=== PATIENT | female | born 1960 | race Caucasian/White ===

== ENCOUNTER 2016-09-16 22:20 | Emergency (ER) | payer MEDICARE, MEDICAID ==
[~2016-09-16] VITALS: Ht 157.5 cm; Wt 91.2 kg
[~2016-09-16 22:20] MED LIST: ADULT LOW DOSE81 MG PO; ADVAIR 100-501 EACH INH; ADVAIR 250-501 EACH INH; AGGRENOX 25 MG-21 EA PO; ALBUTEROL2.5 MG/3 M INH; ASPIR-LOW81 MG PO; BACTRIM DS TAB1 EACH PO; BENADRYL25 MG PO; CLEOCIN HCL300 MG PO; CLINDAMYCIN HC300 MG PO; DURAGESIC1 EAC4 TD; FENTANYL1 EAC4 TD; FLONASE ALLERG9.9 ML NS; GLIPIZIDE ER2.5 MG PO; GUAIFENESIN-CODE5 ML PO; HUMALOG100 UNIT/2 SUB-Q; IBUPROFEN600 MG PO; IBUPROFEN800 MG PO; IPRAT-ALBUT 0.5-3 ML INH; KEFLEX500 MG PO; LEVEMIR100 UNIT/1 SUB-Q; LEVOFLOXACIN500 MG PO; LIPITOR40 MG PO; MELOXICAM15 MG PO; METFORMIN HCL500 M2 PO; METFORMIN HCL500 MG PO; METOPROLOL SUCC25 MG PO; MIRAPEX0.25 MG PO; NICORETTE2 MG MM; NICOTINE PATCH1 EA TD; NITROGLYCERIN0.4 MG SL; NORCO 10-325 T1 EACH PO; NOVOLOG100 UNITS/ IV; PREDNISONE20 MG PO; PROAIR HFA8.5 GM INH; SPIRIVA18 MCG INH; SYNTHROID75 MCG PO; VICODIN HP 10-1 EAC1 PO; ZOLOFT100 MG PO
--- OUTSIDE RECORDS SUMMARY | 2016-09-16 23:37 | XMS ---
Demographics + + + | Address | [address] | | | [address] | | | [place] [address] | + + + | Preferred Language | Unknown | + + + | Marital Status | Unknown | + + + | Buddhism Affiliation | Unknown | + + + | Race | Unknown | + + + | Ethnic Group | Unknown | + + + Author + + + | Author | [facility] | + + + | Organization | [facility] | + + + | Address | [address] | | | [place] [address] | + + + | Phone | | + + + Care Team Providers + + + + | Care Supervisor Cell Operation Name | Role | Phone | + + + + Unavailable | Unavailable | + + + + PROBLEMS +---------+ + + +--------+ + + | Type | Condition | ICD9-CM | [id number] | Onset | Condition | SNOMED | | | | Code | Code | Dates | Status | Code | +---------+ + + +--------+ + + | Problem | Asthma | | J45.909 | | Active | [id number] | +---------+ + + +--------+ + + | Problem | Essential | | I10 | | Active | 31057136 | | | (primary) | | | | | | | | hypertensi | | | | | | | | on | | | | | | +---------+ + + +--------+ + + | Problem | Nausea & | | R11.2 | | Active | 44372638 | | | vomiting | | | | | | +---------+ + + +--------+ + + | Problem | Diarrhea | | R19.7 | | Active | 11534059 | +---------+ + + +--------+ + + | Problem | History of | I25.2 | | | Active | 6403897 | | | acute | | | | | | | | anterior | | | | | | | | wall [place] | | | | | | +---------+ + + +--------+ + + | Problem | Diabetes | E11.9 | | | Active | 357768163 | | | type 2, | | | | | | | | controlled | | | | | | +---------+ + + +--------+ + + | Problem | Diabetes | E11.8 | | | Active | 899718595 | | | mellitus | | | | | | | | type 2 | | | | | | | | with | | | | | | | | complicati | | | | | | | | ons | | | | | | +---------+ + + +--------+ + + | Problem | Diabetic | | E11.40 | | Active | 579353594 | | | neuropathy | | | | | | +---------+ + + +--------+ + + ALLERGIES Unknown Allergies SOCIAL HISTORY No smoking Hx information available PLAN OF CARE VITAL SIGNS MEDICATIONS + + + + + + + +--------+ | Medicati | Instruct | Dosage | Frequenc | Start | End Date | Duration | Status | | on | ions | | y | Date | | | | + + + + + + + +--------+ | Tiotropi | Inhalati | 1 | 24h | | | 30 | Active | | um | on Once | capsule | | | | | | | [place] | a day | | | | | | | | Monohydr | | | | | | | | | ate 18 | | | | | | | | | MCG | | | | | | | | + + + + + + + +--------+ | Levemir | Subcutan | 36 units | 12h | 10 Mar, | | 30 | Active | | FlexTouc | eous bid | | | 2017 | | | | | h 100 | | | | | | | | | UNIT/ML | | | | | | | | + + + + + + + +--------+ | Ventolin | | INHALE | | | | | Active | | HFA 108 | | 1-2 | | | | | | | (90 | | PUFFS BY | | | | | | | Base) | | MOUTH | | | | | | | MCG/ACT | | INTO THE | | | | | | | | | LUNGS | | | | | | | | | EVERY 4 | | | | | | | | | HOURS | | | | | | | | | NEEDED | | | | | | | | | FOR | | | | | | | | | WHEEZING | | | | | | | | | . | | | | | | + + + + + + + +--------+ | Prometha | | | | | | | Active | | zine HCl | | | | | | | | + + + + + + + +--------+ | Valium | intravag | 1 tab(s) | | 17 June, | | 30 | Active | | 10 mg | inally | | | 2017 | | day(s) | | | | TID PRN | | | | | | | + + + + + + + +--------+ | Insulin | | | | | | | Active | | Lispro | | | | | | | | | (Human) | | | | | | | | | 100 | | | | | | | | | UNIT/ML | | | | | | | | + + + + + + + +--------+ | Ibuprofe | Orally | 1 tablet | 8h | | | | Active | | n 800 MG | Three | | | | | | | | | times a | | | | | | | | | day | | | | | | | + + + + + + + +--------+ | Turmeric | Orally | | 24h | | | | Active | | | once a | | | | | | | | Curcumin | day | | | | | | | | 500 MG | | | | | | | | + + + + + + + +--------+ | Ipratrop | Inhalati | 3 ml | 6h | | | | Active | | ium-Albu | on Four | | | | | | | | terol | times a | | | | | | | | 0.5-2.5 | day | | | | | | | | (3) | | | | | | | | | MG/3ML | | | | | | | | + + + + + + + +--------+ | Levothyr | Orally | 1 tablet | 24h | | | | Active | | oxine | Once a | | | | | | | | Sodium | day | | | | | | | | 75 MCG | | | | | | | | + + + + + + + +--------+ | Advair | Inhalati | 1 puff | 12h | 05 Feb, | | 30 | Active | | Diskus | on Twice | | | 2017 | | | | | 250-50 | a day | | | | | | | | MCG/DOSE | | | | | | | | + + + + + + + +--------+ | Atorvast | Orally | 1 tablet | 24h | | | | Active | | atin | Once a | | | | | | | | Calcium | day | | | | | | | | 40 MG | | | | | | | | + + + + + + + +--------+ | Magnesiu | Orally | 1 | 24h | | | | Active | | m 500 MG | daily | applicat | | | | | | | | | or full | | | | | | + + + + + + + +--------+ | iron 50 | Oral | | 24h | | | | Active | | mg | once a | | | | | | | | | day | | | | | | | + + + + + + + +--------+ | Nitro-Bi | | | | | | | Active | | d | | | | | | | | + + + + + + + +--------+ | Metformi | Orally | 1 tab | 12h | | | 30 | Active | | n & Diet | bid | | | | | | | | Manage | | | | | | | | | Prod | | | | | | | | | 1000 MG | | | | | | | | + + + + + + + +--------+ | Pramipex | Orally | 3 tablet | 24h | | | 30 | Active | | ole | Once a | before | | | | | | | Dihydroc | day | bedtime | | | | | | | hloride | | | | | | | | | 0.25 MG | | | | | | | | + + + + + + + +--------+ | Fluticas | Nasally | 1 spray | 24h | | | | Active | | one | Once a | in each | | | | | | | Propiona | day | nostril | | | | | | | te 50 | | | | | | | | | MCG/ACT | | | | | | | | + + + + + + + +--------+ | Garcinia | | | | | | | Active | | | | | | | | | | | Cambogia | | | | | | | | | -Chromiu | | | | | | | | | m | | | | | | | | + + + + + + + +--------+ | Imitrex | Orally | 1 tablet | | 05 Apr, | | 30 | Active | | 50 MG | at onset | as | | 2016 | | | | | | mcneill may | needed | | | | | | | | repeat | | | | | | | | | x1 | | | | | | | + + + + + + + +--------+ | DuoNeb | nebulize | one | 6h | 05 Wilfredo, | | 30 | Active | | 500mcg/2 | r qid | | | 2016 | | | | | .5g/3ml | | | | | | | | + + + + + + + +--------+ | Voltaren | Transder | as | 12h | 05 Apr, | | 30 | Active | | 1 % | mal bid | directed | | 2016 | | | | + + + + + + + +--------+ | Fluticas | Inhalati | 1 puff | 12h | | | | Active | | one-Salm | on Twice | | | | | | | | eterol | a day | | | | | | | | 250-50 | | | | | | | | | MCG/DOSE | | | | | | | | + + + + + + + +--------+ | D-3-5 | Orally | 5 | 24h | | | | Active | | [id number] | Once a | capsule | | | | | | | | day | | | | | | | + + + + + + + +--------+ | Probioti | | | | | | | Active | | c | | | | | | | | + + + + + + + +--------+ | Zofran | Orally | 1 tablet | 8h | 10 Apr, | | 5 day(s) | Active | | ODT 4 mg | every 8 | on the | | 2016 | | | | | | hrs | tongue | | | | | | | | | and | | | | | | | | | allow to | | | | | | | | | | | | | | | | | | dissolve | | | | | | + + + + + + + +--------+ | Metoprol | Orally | 1 tablet | 12h | | | 30 | Active | | ol | bid | | | | | | | | Succinat | | | | | | | | | e ER 25 | | | | | | | | | MG | | | | | | | | + + + + + + + +--------+ | Cinnamon | | | | | | | Active | + + + + + + + +--------+ | Carafate | Orally | 10 ml | | 05 Apr, | 31 Mar, | 30 | Active | | 1 | tid ac | | | 2017 | 2018 | day(s) | | | GM/10ML | | | | | | | | + + + + + + + +--------+ | Sertrali | Orally | 1 tablet | 24h | | | | Active | | ne HCl | Once a | | | | | | | | 100 MG | day | | | | | | | + + + + + + + +--------+ | Spirulin | Orally | | 24h | | | | Active | | a 400 mg | once a | | | | | | | | | day | | | | | | | + + + + + + + +--------+ | Dipyrida | | | | | | | Active | | mole 25 | | | | | | | | | MG | | | | | | | | + + + + + + + +--------+ RESULTS No Results PROCEDURES No Known procedures IMMUNIZATIONS No Known Immunizations"
--- OUTSIDE RECORDS SUMMARY | 2016-09-16 23:37 | XMS ---
Demographics + + + | Address | [address] | | | [address] | | | [place] [address] | + + + | Preferred Language | Unknown | + + + | Marital Status | Unknown | + + + | Temple Affiliation | Unknown | + + + | Race | Unknown | + + + | Ethnic Group | Unknown | + + + Author + + + | Author | [facility] | + + + | Organization | [facility] | + + + | Address | [address] | | | [place] [address] | + + + | Phone | | + + + Care Team Providers + + + + | Care Tube Builder Name | Role | Phone | + + + + Unavailable | Unavailable | + + + + PROBLEMS +---------+ + + +--------+ + + | Type | Condition | ICD9-CM | [id number] | Onset | Condition | SNOMED | | | | Code | Code | Dates | Status | Code | +---------+ + + +--------+ + + | Problem | Asthma | | J45.909 | | Active | [id number] | +---------+ + + +--------+ + + | Problem | Essential | | I10 | | Active | 54927497 | | | (primary) | | | | | | | | hypertensi | | | | | | | | on | | | | | | +---------+ + + +--------+ + + | Problem | Nausea & | | R11.2 | | Active | 64924959 | | | vomiting | | | | | | +---------+ + + +--------+ + + | Problem | Diarrhea | | R19.7 | | Active | 49074954 | +---------+ + + +--------+ + + | Problem | History of | I25.2 | | | Active | 0954312 | | | acute | | | | | | | | anterior | | | | | | | | [place] | | | | | | +---------+ + + +--------+ + + | Problem | Diabetes | E11.9 | | | Active | 045774038 | | | type 2, | | | | | | | | controlled | | | | | | +---------+ + + +--------+ + + | Problem | Diabetes | E11.8 | | | Active | 195611119 | | | mellitus | | | [...] | | E11.40 | | Active | 193710793 | | | neuropathy | | | [...] + + + + + +--------+ | Diflucan | Orally q | 1 tablet | | 03 June, | 13 June, | 10 | Active | | 150 MG | day | | | 2017 | 2017 | day(s) | | + + + + + + + +--------+ RESULTS No Results PROCEDURES No Known procedures IMMUNIZATIONS No Known Immunizations"
--- OUTSIDE RECORDS SUMMARY | 2016-09-16 23:37 | XMS ---
Demographics + + + | Address | [address] | | | [address] | | | [place] [address] | + + + | Preferred Language | Unknown | + + + | Marital Status | Unknown | + + + | Tenriism Affiliation | Unknown | + + + | Race | Unknown | + + + | Ethnic Group | Unknown | + + + Author + + + | Author | [facility] | + + + | Organization | [facility] | + + + | Address | [address] | | | [place] [address] | + + + | Phone | | + + + Care Team Providers + + + + | Care Doll Dresser Name | Role | Phone | + + + + Unavailable | Unavailable | + + + + PROBLEMS + + + + + + + + | Type | Condition | ICD9-CM | [id number] | Onset | Condition | SNOMED | | | | Code | Code | Dates | Status | Code | + + + + + + + + | Assessment | Diabetes | E11.9 | | 05 June, | Active | [id number] | | | type 2, | | | 2017 | | | | | controlled | | | | | | + + + + + + + + | Problem | Asthma | | J45.909 | | Active | 845148680 | + + + + + + + + | Problem | Essential | | I10 | | Active | 77787400 | | | (primary) | | | | | | | | hypertensi | | | | | | | | on | | | | | | + + + + + + + + | Problem | Nausea & | | R11.2 | | Active | 13599013 | | | vomiting | | | | | | + + + + + + + + | Problem | Diarrhea | | R19.7 | | Active | 13869750 | + + + + + + + + | Problem | History of | I25.2 | | | Active | 1203197 | | | acute | | | | | | | | anterior | | | | | | | | wall [place] | | | | | | + + + + + + + + | Problem | Diabetes | E11.9 | | | Active | 011247873 | | | type 2, | | | | | | | | controlled | | | | | | + + + + + + + + | Problem | Diabetes | E11.8 | | | Active | 871318796 | | | mellitus | | | | | | | | type 2 | | | | | | | | with | | | | | | | | complicati | | | | | | | | ons | | | | | | + + + + + + + + | Problem | Diabetic | | E11.40 | | Active | 142393718 | | | neuropathy | | | | | | + + + + + + + + | Assessment | Hypothyroi | E03.9 | | 27 June, | Active | 36356497 | | | dism | | | 2016 | | | | | (acquired) | | | | | | + + + + + + + + | Assessment | Vaginal | B37.3 | | 27 June, | Active | 92104144 | | | moniliasis | | | 2016 | | | + + + + + + + + | Assessment | Degenerati | M17.10 | | 05 June, | Active | 724661238 | | | ve joint | | | 2016 | | | | | disease of | | | | | | | | knee | | | | | | + + + + + + + + | Assessment | History of | Z87.448 | | 27 June, | Active | | | | prolapse | | | 2016 | | | | | of bladder | | | | | | + + + + + + + + | Assessment | COPD | | J44.9 | 27 June, | Active | 17253931 | | | (chronic | | | 2016 | | | | | obstructiv | | | | | | | | e | | | | | | | | pulmonary | | | | | | | | disease) | | | | | | + + + + + + + + ALLERGIES + + + + +--------+ | Substance | Reaction | Event Type | Date | Status | + + + + +--------+ | Tramadol HCl | Unknown | Drug Allergy | June, | Active | + + + + +--------+ | Cymbalta | Unknown | Drug Allergy | June, | Active | + + + + +--------+ | Tolterodine | Unknown | Drug Allergy | June, | Active | | Tartrate | | | | | + + + + +--------+ | Rizatriptan | Unknown | Drug Allergy | June, | Active | | Benzoate | | | | | + + + + +--------+ | Duloxetine HCl | Unknown | Drug Allergy | June, | Active | + + + + +--------+ SOCIAL HISTORY No smoking Hx information available PLAN OF CARE VITAL SIGNS + + + + | Height | 62 in | 2016-06-27 | + + + + | Weight | 197.34 lbs | 2016-06-27 | + + + + | BMI | 36.09 kg/m2 | 2016-06-27 | + + + + | Temperature | 98.4 degrees Fahrenheit | 2016-06-27 | + + + + | Heart Rate | 72 /min | 2016-06-27 | + + + + | Blood pressure systolic | 120 mm Hg | 2016-06-27 | + + + + | Blood pressure diastolic | 82 mm Hg | 2016-06-27 | + + + + MEDICATIONS + + + + + + [...] Diskus | on Twice | | | 2016 | | | | | 250-50 | a day | | | | | | | | MCG/DOSE | | | | | | | | + + + + + + + +--------+ | Carafate | Orally | 10 ml | | 05 May, | 31 Apr, | 30 | Active | | 1 [...] + + +--------+ | Diflucan | Orally | 1 tablet | 12h | 03 June, | 13 June, | 10 day | Active | | 150 MG | bid | | | 2016 | 2016 | | | + + + + + + + +--------+ | Levemir | Subcutan | 36 units | 12h | 10 Mar, | | 30 | Active | | FlexTouc | eous bid | | | 2016 | | | | | h 100 | | | | | | | | | UNIT/ML | | | | | | | | + + + + + + + +--------+ | DuoNeb | nebulize | one | 6h | 05 Wilfredo, | | 30 | Active | | 500mcg/2 | r qid | | | 2017 | | | | | .5g/3ml | [...] 1 tablet | 24h | | | 30 | Active | | oxine | Once a | | | | | | | | Sodium | day | | | | | | | | 75 MCG | | | | | | | | + + + + + + + +--------+ | Metformi | Orally | 1 tab | 12h | | | | Active | | n & Diet | bid | | | | | | | | Manage | | | | | | | | | Prod | | | | | | | | | 2000 | | | | | | | [...] | mal bid | directed | | 2017 | | | | + + + [...] | | | | | | | [place] | a day | | | | [...] | | | | | | | 200 | day | | | | | | | + + + + + + + +--------+ RESULTS No Results PROCEDURES + + + + + | Procedure | Date Ordered | Related Diagnosis | Body Site | + + + + + | Office Visit, Est | June 27, 2016 | | | | Pt., Level 3 | | | | + + + + + IMMUNIZATIONS No Known Immunizations"
--- OUTSIDE RECORDS SUMMARY | 2016-09-16 23:37 | XMS ---
Demographics + + + | Address | [address] | | | [address] | | | [place] [address] | + + + | Preferred Language | Unknown | + + + | Marital Status | Unknown | + + + | Faith Affiliation | Unknown | + + + | Race | Unknown | + + + | Ethnic Group | Unknown | + + + Author + + + | Author | [facility] | + + + | Organization | [facility] | + + + | Address | [address] | | | [place] [address] | + + + | Phone | | + + + Care Team Providers + + + + | Care It Software Developer Name | Role | Phone | + + + + Unavailable | Unavailable | + + + + PROBLEMS + + + + + + + + | Type | Condition | ICD9-CM | [id number] | Onset | Condition | SNOMED | | | | Code | Code | Dates | Status | Code | + + + + + + + + | Assessment | Diabetes | E11.9 | | 27 June, | Active | [id number] | | | type 2, | | | 2016 | | | | | controlled | | | | | | + + + + + + + + | Problem | Asthma | | J45.909 | | Active | 694386966 | + + + + + + + + | Problem | Essential | | I10 | | Active | 82590165 | | | (primary) | | | | | | | | hypertensi | | | | | | | | on | | | | | | + + + + + + + + | Assessment | Degenerati | M17.10 | | 27 June, | Active | 175735423 | | | ve joint | | | 2016 | | | | | disease of | | | | | | | | knee | | | | | | + + + + + + + + | Assessment | Restless | | G25.81 | 27 June, | Active | 16932397 | | | leg | | | 2016 | | | | | syndrome | | | | | | + + + + + + + + | Assessment | COPD | | J44.9 | 27 June, | Active | 09701386 | | | (chronic | | | [...] | | R11.2 | | Active | 70332034 | | | vomiting | | | | | | + + + + + + + + | Problem | Diarrhea | | R19.7 | | Active | 65071343 | + + + + + + + + | Problem | History of | I25.2 | | | Active | 7626112 | | | acute | | | | | | | | anterior | | | | | | | | wall [place] | | | | | | + + + + + + + + | Problem | Diabetes | E11.9 | | | Active | 260521013 | | | type 2, | | | | | | | | controlled | | | | | | + + + + + + + + | Problem | Diabetes | E11.8 | | | Active | 898296944 | | | mellitus | | | [...] | | E11.40 | | Active | 553199458 | | | neuropathy | | | | | | + + + + + + + + ALLERGIES Unknown Allergies SOCIAL HISTORY [...] Orally q | 1 tablet | | 25 June, | 13 June, | 10 | Active | | 150 MG | day | | | 2017 | 2017 | day(s) | | + + + + + + + +--------+ | Advair | Inhalati | 1 puff | 12h | Feb, | | 30 | Active | [...] | | | | | | | [place] | a day | | | | [...] | + + + + + | Darren Anderson | June 27, 2016 | | | | Exam | | | | + + + + + IMMUNIZATIONS No Known Immunizations"
--- OUTSIDE RECORDS SUMMARY | 2016-09-16 23:37 | XMS ---
Demographics + + + | Address | [address] | | | [address] | | | [place] [address] | + + + | Preferred Language | Unknown | + + + | Marital Status | Unknown | + + + | Caodaism Affiliation | Unknown | + + + | Race | Unknown | + + + | Ethnic Group | Unknown | + + + Author + + + | Author | [facility] | + + + | Organization | [facility] | + + + | Address | [address] | | | [place] [address] | + + + | Phone | | + + + Care Team Providers + + + + | Care Wine Manager Name | Role | Phone | + + + + Unavailable | Unavailable | + + + + PROBLEMS +---------+ + + +--------+ + + | Type | Condition | ICD9-CM | [id number] | Onset | Condition | SNOMED | | | | Code | Code | Dates | Status | Code | +---------+ + + +--------+ + + | Problem | Asthma | | J45.909 | | Active | 228201104 | +---------+ + + +--------+ + + | Problem | Essential | | I10 | | Active | 45264772 | | | (primary) | | | | | | | | hypertensi | | | | | | | | on | | | | | | +---------+ + + +--------+ + + | Problem | Nausea & | | R11.2 | | Active | 34087371 | | | vomiting | | | | | | +---------+ + + +--------+ + + | Problem | Diarrhea | | R19.7 | | Active | 74342819 | +---------+ + + +--------+ + + | Problem | History of | I25.2 | | | Active | 8740171 | | | acute | | | | | | | | anterior | | | | | | | | wall [place] | | | | | | +---------+ + + +--------+ + + | Problem | Diabetes | E11.9 | | | Active | 548481497 | | | type 2, | | | | | | | | controlled | | | | | | +---------+ + + +--------+ + + | Problem | Diabetes | E11.8 | | | Active | 837174181 | | | mellitus | | | [...] | | E11.40 | | Active | 097147063 | | | neuropathy | | | | | | +---------+ + + +--------+ + + ALLERGIES + + + + +--------+ | Substance | Reaction | Event Type | Date | Status | + + + + +--------+ | Tramadol HCl | Unknown | Drug Allergy | Jul, | Active | + + + + +--------+ | Cymbalta | Unknown | Drug Allergy | Jul, | Active | + + + + +--------+ | Tolterodine | Unknown | Drug Allergy | Jul, | Active | | Tartrate | | | | | + + + + +--------+ | Rizatriptan | Unknown | Drug Allergy | Jul, | Active | | Benzoate | | | | | + + + + +--------+ | Duloxetine HCl | Unknown | Drug Allergy | Jul, | Active | + + + + +--------+ SOCIAL HISTORY No smoking Hx information available PLAN OF CARE + +---------+ | Activity | Details | + +---------+ +---+ | | +---+ + + + | Follow Up | 6 Weeks Reason:null | + + + VITAL SIGNS + + + + | Height | 62 in | 2016-07-30 | + + + + | Weight | 202.2 lbs | 2016-07-30 | + + + + | BMI | 36.98 kg/m2 | 2016-07-30 | + + + + | Temperature | 98.2 degrees Fahrenheit | 2016-07-30 | + + + + | Heart Rate | 68 /min | 2016-07-30 | + + + + | Blood pressure systolic | 123 mm Hg | 2016-07-30 | + + + + | Blood pressure diastolic | 58 mm Hg | 2016-07-30 | + + + + MEDICATIONS + [...] | | | | Active | | [id number] | Once a | capsule | | | | | | | | day | | | | | | | + + + + + + + +--------+ | Imitrex | Orally | 1 tablet | | 05 Apr, | | 30 | Active | | 50 MG | at onset | as | | 2017 | | | | | | mcneill [...] | | | | | | | [place] | a day | | | | [...] 10 mg | inally | | | 2016 | | day(s) | | | | TID PRN | | | | | | | + + + + + + + +--------+ RESULTS No Results PROCEDURES + + + + + | Procedure | Date Ordered | Related Diagnosis | Body Site | + + + + + | Office Visit, Est | July 30, 2016 | | | | Pt., Level 3 | | | | + + + + + IMMUNIZATIONS No Known Immunizations"
== END 2016-09-16 23:38 | disposition home or self-care (01) ==
LOC: ED 22:20
DX: S16.1XXA Strain of muscle, fascia and tendon at neck level, initial encounter (principal); S39.012A Strain of muscle, fascia and tendon of lower back, initial encounter; S00.93XA Contusion of unspecified part of head, initial encounter; E03.9 Hypothyroidism, unspecified; K21.9 Gastro-esophageal reflux disease without esophagitis; E11.42 Type 2 diabetes mellitus with diabetic polyneuropathy; J45.909 Unspecified asthma, uncomplicated; Z86.14 Personal history of Methicillin resistant Staphylococcus aureus infection; Z90.710 Acquired absence of both cervix and uterus; W19.XXXA Unspecified fall, initial encounter
CPT/HCPCS: 70450; 72100; 72125; 73030; 73552; 99284

== ENCOUNTER 2016-12-16 06:58 | Day surgery (SDC) | payer MEDICARE, MEDICAID ==
[~2016-12-16] VITALS: Ht 157.5 cm; Wt 97.7 kg
--- NOTE | 2016-12-16 08:18 | NUR ---
0800 - PT CBG CHECKED WITH IV START. CBG 65. 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 1/2 AMP OF D50 ORDERED. WITH CBG RECHECK IN 15 MINUTES.
--- NOTE | 2016-12-16 08:20 | NUR ---
THIS RN BEGAN TO INFUS D50. 18ML GIVEN WHEN PT BEGAN TO COMPLAIN OF PAIN AT IV SITE. PIV ASSESSED, INFILTRATION NOTED. PIV DC'D PER PROTOCOL. COBAN AND GAUZE APPLIED TO SITE.
--- NOTE | 2016-12-16 08:27 | NUR ---
LMFT INFORMED OF INFLITARTED IV AND UNKNONWN DOSE OF D50. 2ND RN WORKING ON VASCULAR ACCESS. LMFT STATES TO RECHECK CBG WHEN ACCESS IS OBTAINED AND DETERMIN AT THAT POINT IF ADDITIONAL D50 IS NEEDED. PT CONTINUES TO BE DIAPHORETIC AND DIZZY.
--- NOTE | 2016-12-16 08:39 | NUR ---
CBG RECHECKED NOW AT 120. TRUCK DRIVER INFORMED, STATES TO WAIT ON ADDITONAL D50 FOR NOW AND HE WILL BE IN TO SEE PT SHORTLY.
--- NOTE | 2016-12-16 09:15 | NUR ---
TAPER MACHINE AT BEDSIDE. VERSED GIVEN PER TAPER MACHINE ORDER (SEE MAR).
--- NOTE | 2016-12-16 10:26 | NUR ---
12/16/16 1026 Mrele Jeffers 1008-PATIENT ARRIVED TO PACU ON 6L MASK O2 SAT 100% PATIENT REACTIVE. DRESSING HAS SCANT AMT OF SHADOWING ON DRESSING TO NOSE. 1010-GLUCOSE 105 PATIENT REPORTING PAIN 8/10 REACHING FOR FACE. INSTRUCTED TO KEEP HANDS AWAY FROM FACE WILL MEDICATE PER EMAR. 1025-PATIENT GIVEN ALBUTEROL BREATHING TREATMENT PER ORDER FROM JT STEVE.
--- NOTE | 2016-12-16 11:18 | NUR ---
PT ARRIVED FROM PACU. REPORTING 8/10 PAIN AND A HEADACHE. COFFE PROVIDED PER NORMAL CHIDI INTAKE FOR PT. PT TOLERATING PO FLUIDS WELL. PT RESPONDING TO QUESTIONS APPROPRIATLY. BED RAILS UP. CALL LIGHT WITHIN REACH.
--- NOTE | 2016-12-16 11:36 | NUR ---
PAIN MEDICATION ARRIVED FROM PHARMACY. PT TOLERATING PO FLUIDS AND JELLO AND PUDDING. PT REQUESTS COTTAGE CHEESE AND FRUIT, ORDERED FROM PHARMACY.
--- NOTE | 2016-12-16 12:21 | NUR ---
PT UP TO THE BATHROOM WITH STBY ASST. TOLERATED WELL, STEADY GAIT. LARGE VOID NOTED AND PT BACK TO BED.
--- NOTE | 2016-12-16 12:26 | NUR ---
PT STEADY ON FEET WITH ONE PERSON STAND BY ASSIST. PT UP TO RESTROOM WITH ANOTHER RN. PT TOLERATING PO FLUIDS AND FOOD AND CONTINUES TO DENY NAUSEA. PT STATES PAIN IS "MUCH BETTER." NOW AT 4/10 AND TOLERABLE. PT FRIEND AT BEDSIDE. DISCHARGE INSTRUCTIONS REVIEWED. PT AND FRIEND VERBALIZE UNDERSTANDING OF DISCHARGE ISNTRUCTIONS AND FOLLOW UP APPOINTMENT.
--- NOTE | 2016-12-23 15:09 | OR ---
[facility] [address] [place], [place] [address] Signed DATE OF OPERATION: 12/16/2016 SURGEON: Kin Bo MD PREOPERATIVE DIAGNOSIS: Chronic sinusitis with septal deformity. POSTOPERATIVE DIAGNOSIS: Chronic sinusitis with septal deformity. PROCEDURES: Septoplasty and bilateral intranasal ethmoidectomy. 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 PREOPERATIVE HISTORY: Laury is a 56-year-old lady with chronic sinus problems. Recent CAT scan had shown opacification of the sinuses, persistent without response to appropriate medications. Exam in the office had shown septal deformity and she was taken to the operating room for the above-mentioned procedures. OPERATIVE PROCEDURE AND FINDINGS: After informed consent, the patient was taken to the operating room, placed in the supine position where general LMA anesthesia was induced. The patient and procedure were verified. Preop CT was viewed throughout the case. The patient received preoperative intranasal oxymetazoline and intravenous Ancef. Headlight speculum exam of the nasal cavity showed moderate septal deformity with a spur inferiorly on the left and right, both obstructive, partially obstructing the middle meatus. Septal mucosa was injected with 1% lidocaine with epinephrine. The mucosa was elevated off the deviated septal bone and cartilage, which was excised with Nathanael. Airway was improved in this manner. Minimal bleeding. Sinusotomies were then performed starting on the left side. The middle turbinate was medialized. Ethmoid bulla had been taken down in previous procedure. There was some scar bands from the middle turbinate to the lateral nasal wall, which were excised. Air cells were opened per CT. The middle meatal antrostomy was made with a curved ring curette and the antrostomy was widened with a Nathanael. Curette was passed into the maxillary sinus and the mucosa was removed. Minimal bleeding. Packing was placed on the side with Gtz Adonis and coated with Neosporin at the middle meatus and a trim Merocel pack in the nasal cavity. The right side was then approached. Sinusotomies per CT reviewed similar to the left side. The bleeding was minimal, slightly more brisk on this side, but stopped after the procedure. Gtz Adonis was placed. Merocel pack was placed into the nasal cavity. The strings were tied anteriorly over a pad. The pharynx was suctioned clear of blood and secretions. The patient was then awakened, extubated, and transported to the recovery room in good condition. Electronically Signed By: KIN BO MD 12/23/16 1509 PATIENT NAME: LAURY WYNN OPERATIVE REPORT DATE OF : 60 PHYSICIAN: KIN BO MD REPORT #: [id number] REPORT IS CONFIDENTIAL AND NOT TO BE RELEASED WITHOUT AUTHORIZATION [facility] [address] [place], [place] [address] Signed COMPLICATIONS: None. BLOOD LOSS: Minimal. SPECIMENS: To pathology. PACKING: Two pieces of Merocel in each nostril. DRAINS: None. Kin Bo MD GC/MODL /[id number] Electronically Signed By: KIN BO MD 12/23/16 1509 PATIENT NAME: BERYLEstherLAURY OPERATIVE REPORT DATE OF : 60 PHYSICIAN: KIN BO MD REPORT #: [id number] REPORT IS CONFIDENTIAL AND NOT TO BE RELEASED WITHOUT AUTHORIZATION
== END 2016-12-16 12:45 | disposition home or self-care (01) ==
LOC: OPS 06:58 → DS 06:58 → OPS 08:15 → DS 08:15 → OPS 12:45
PROVIDERS: Otolaryngology
PROC: 099R8ZZ Drainage of Left Maxillary Sinus, Via Natural or Artificial Opening Endoscopic (ICD-10-PCS; 2016-12-16)
PROC: 099Q8ZZ Drainage of Right Maxillary Sinus, Via Natural or Artificial Opening Endoscopic (ICD-10-PCS; 2016-12-16)
PROC: 09BV4ZZ Excision of Left Ethmoid Sinus, Percutaneous Endoscopic Approach (ICD-10-PCS; 2016-12-16)
PROC: 09BU4ZZ Excision of Right Ethmoid Sinus, Percutaneous Endoscopic Approach (ICD-10-PCS; 2016-12-16)
PROC: 09SM0ZZ Reposition Nasal Septum, Open Approach (ICD-10-PCS; principal; 2016-12-16 08:15)
DX: J34.2 Deviated nasal septum (principal); J32.8 Other chronic sinusitis; I25.10 Atherosclerotic heart disease of native coronary artery without angina pectoris; J44.9 Chronic obstructive pulmonary disease, unspecified; E11.40 Type 2 diabetes mellitus with diabetic neuropathy, unspecified; F31.9 Bipolar disorder, unspecified; E78.00 Pure hypercholesterolemia, unspecified; E03.9 Hypothyroidism, unspecified; Z88.8 Allergy status to other drugs, medicaments and biological substances; Z90.710 Acquired absence of both cervix and uterus; Z98.890 Other specified postprocedural states; Z79.899 Other long term (current) 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
CPT/HCPCS: 00160; 88305; J0690; J2250; J2405; J2704; J3010; J7120

== ENCOUNTER 2017-02-01 21:22 | Emergency (ER) | payer MEDICARE, MEDICAID ==
[~2017-02-01] VITALS: Ht 157.5 cm; Wt 97.5 kg
[2017-02-01] MEDS ORDERED: GABAPENTIN100 MG PO (21:40)
--- OUTSIDE RECORDS SUMMARY | 2017-02-01 21:43 | XMS ---
Demographics + + + | Address | [address] | | | [address] | | | [place] [address] | + + + | Preferred Language | Unknown | + + + | Marital Status | Unknown | + + + | Hoahaoism Affiliation | Unknown | + + + | Race | Unknown | + + + | Ethnic Group | Unknown | + + + Author + + + | Author | [facility] | + + + | Organization | [facility] | + + + | Address | [address] | | | [place] [address] | + + + | Phone | | + + + Care Team Providers + + + + | Care Process Safety Engineering Technologist Name | Role | Phone | + + + + Unavailable | Unavailable | + + + + PROBLEMS +---------+ + + +--------+ + + | Type | Condition | ICD9-CM | [id number] | Onset | Condition | SNOMED | | | | Code | Code | Dates | Status | Code | +---------+ + + +--------+ + + | Problem | Asthma | | J45.909 | | Active | 593425643 | +---------+ + + +--------+ + + | Problem | Essential | | I10 | | Active | 70838121 | | | (primary) | | | | | | | | hypertensi | | | | | | | | on | | | | | | +---------+ + + +--------+ + + | Problem | Nausea & | | R11.2 | | Active | 93908876 | | | vomiting | | | | | | +---------+ + + +--------+ + + | Problem | Diarrhea | | R19.7 | | Active | 77646119 | +---------+ + + +--------+ + + | Problem | History of | I25.2 | | | Active | 8605462 | | | acute | | | | | | | | anterior | | | | | | | | wall [place] | | | | | | +---------+ + + +--------+ + + | Problem | Diabetes | E11.9 | | | Active | 002381837 | | | type 2, | | | | | | | | controlled | | | | | | +---------+ + + +--------+ + + | Problem | Diabetes | E11.8 | | | Active | 765100224 | | | mellitus | | | [...] | | E11.40 | | Active | 282393974 | | | neuropathy | | | | | | +---------+ + + +--------+ + + ALLERGIES Unknown Allergies SOCIAL HISTORY No smoking Hx information available PLAN OF CARE VITAL SIGNS MEDICATIONS + + + + +--------+ + +--------+ | Medicati | Instruct | Dosage | Frequenc | Start | End Date | Duration | Status | | on | ions | | y | Date | | | | + + + + +--------+ + +--------+ | Levothyr | Orally | 1 tablet | 24h | | | | Active | | oxine | Once a | | | | | | | | Sodium | day | | | | | | | | 75 MCG | | | | | | | | + + + + +--------+ + +--------+ RESULTS No Results PROCEDURES No Known procedures IMMUNIZATIONS No Known Immunizations"
--- OUTSIDE RECORDS SUMMARY | 2017-02-01 21:43 | XMS ---
Demographics + + + | Address | [address] | | | [address] | | | [place] [address] | + + + | Preferred Language | Unknown | + + + | Marital Status | Unknown | + + + | Hinduism Affiliation | Unknown | + + + | Race | Unknown | + + + | Ethnic Group | Unknown | + + + Author + + + | Author | [facility] | + + + | Organization | [facility] | + + + | Address | [address] | | | [place] [address] | + + + | Phone | | + + + Care Team Providers + + + + | Care Wildland Firefighter Name | Role | Phone | + + + + Unavailable | Unavailable | + + + + PROBLEMS +---------+ + + +--------+ + + | Type | Condition | ICD9-CM | [id number] | Onset | Condition | SNOMED | | | | Code | Code | Dates | Status | Code | +---------+ + + +--------+ + + | Problem | Asthma | | J45.909 | | Active | 171908635 | +---------+ + + +--------+ + + | Problem | Essential | | I10 | | Active | 36686802 | | | (primary) | | | | | | | | hypertensi | | | | | | | | on | | | | | | +---------+ + + +--------+ + + | Problem | Nausea & | | R11.2 | | Active | 73269448 | | | vomiting | | | | | | +---------+ + + +--------+ + + | Problem | Diarrhea | | R19.7 | | Active | 50817709 | +---------+ + + +--------+ + + | Problem | History of | I25.2 | | | Active | 2102498 | | | acute | | | | | | | | anterior | | | | | | | | wall [place] | | | | | | +---------+ + + +--------+ + + | Problem | Diabetes | E11.9 | | | Active | 474371218 | | | type 2, | | | | | | | | controlled | | | | | | +---------+ + + +--------+ + + | Problem | Diabetes | E11.8 | | | Active | 991123318 | | | mellitus | | | [...] | | E11.40 | | Active | 975817309 | | | neuropathy | | | | | | +---------+ + + +--------+ + + ALLERGIES + + + + +--------+ | Substance | Reaction | Event Type | Date | Status | + + + + +--------+ | Tramadol HCl | Unknown | Drug Allergy | Sep, | Active | + + + + +--------+ | Cymbalta | Unknown | Drug Allergy | Sep, | Active | + + + + +--------+ | Tolterodine | Unknown | Drug Allergy | Sep, | Active | | Tartrate | | | | | + + + + +--------+ | Rizatriptan | Unknown | Drug Allergy | Sep, | Active | | Benzoate | | | | | + + + + +--------+ | Duloxetine HCl | Unknown | Drug Allergy | Sep, | Active | + + + + +--------+ SOCIAL HISTORY No smoking Hx information available PLAN OF CARE + +---------+ | Activity | Details | + +---------+ +---+ | | +---+ + + + | Follow Up | 2 Months Reason:null | + + + | Pending Test | Comp. Metabolic Panel (14) | + + + VITAL SIGNS + + + + | Height | 62 in | 2016-09-26 | + + + + | Weight | 201 lbs | 2016-09-26 | + + + + | BMI | 36.76 kg/m2 | 2016-09-26 | + + + + | Heart Rate | 85 /min | 2016-09-26 | + + + + | Blood pressure systolic | 129 mm Hg | 2016-09-26 | + + + + | Blood pressure diastolic | 65 mm Hg | 2016-09-26 | + + + + MEDICATIONS + [...] | | | | | | | Fenton | a day | | | | [...] every 8 | on the | | 2017 | | | | | | hrs [...] | 1 puff | 12h | 05 Wilfredo, | | 30 | [...] intravag | 1 tab(s) | | 17 May, | | 30 | Active | | [...] | | | | Active | | [address] | Once a | capsule | | | | | | | | day | | | | | | | + + + + + + + +--------+ | Doxycycl | Orally | 1 | 24h | | | | Active | | ine 40 | Once a | capsule | | | | | | | MG | day | on an | | | | | | | | | empty | | | | | | | | | stomach | | | | | | | | | in the | | | | | | | | | morning | | | | | | + + + + + + + +--------+ RESULTS + +--------+------+ + | Name | Result | Date | Reference Range | + +--------+------+ + | Hemoglobin A1C | | | | | Panel | | | | + +--------+------+ + | EST AVG GLUCOSE | | | | + +--------+------+ + | HEMOGLOBIN A1C | | | | + +--------+------+ + PROCEDURES + + + + + | Procedure | Date Ordered | Related Diagnosis | Body Site | + + + + + | Office Visit, Est | Sep 26, 2016 | | | | Pt., Level 3 | | | | + + + + + IMMUNIZATIONS No Known Immunizations"
--- OUTSIDE RECORDS SUMMARY | 2017-02-01 21:43 | XMS ---
Demographics + + + | Address | [address] | | | [address] | | | [place] [address] | + + + | Preferred Language | Unknown | + + + | Marital Status | Unknown | + + + | Orthodoxy Affiliation | Unknown | + + + | Race | Unknown | + + + | Ethnic Group | Unknown | + + + Author + + + | Author | [facility] | + + + | Organization | [facility] | + + + | Address | [address] | | | [place] [address] | + + + | Phone | | + + + Care Team Providers + + + + | Care Boiler Repairman Name | Role | Phone | + + + + Unavailable | Unavailable | + + + + PROBLEMS +---------+ + + +--------+ + + | Type | Condition | ICD9-CM | [id number] | Onset | Condition | SNOMED | | | | Code | Code | Dates | Status | Code | +---------+ + + +--------+ + + | Problem | Asthma | | J45.909 | | Active | 759832618 | +---------+ + + +--------+ + + | Problem | Essential | | I10 | | Active | 77145022 | | | (primary) | | | | | | | | hypertensi | | | | | | | | on | | | | | | +---------+ + + +--------+ + + | Problem | Nausea & | | R11.2 | | Active | 79945711 | | | vomiting | | | | | | +---------+ + + +--------+ + + | Problem | Diarrhea | | R19.7 | | Active | 89655868 | +---------+ + + +--------+ + + | Problem | History of | I25.2 | | | Active | 2786313 | | | acute | | | | | | | | anterior | | | | | | | | wall [place] | | | | | | +---------+ + + +--------+ + + | Problem | Diabetes | E11.9 | | | Active | 737311070 | | | type 2, | | | | | | | | controlled | | | | | | +---------+ + + +--------+ + + | Problem | Diabetes | E11.8 | | | Active | 362124405 | | | mellitus | | | [...] | | E11.40 | | Active | 093582583 | | | neuropathy | | | | | | +---------+ + + +--------+ + + ALLERGIES Unknown Allergies SOCIAL HISTORY No smoking Hx information available PLAN OF CARE VITAL SIGNS MEDICATIONS Unknown Medications RESULTS No Results PROCEDURES No Known procedures IMMUNIZATIONS No Known Immunizations"
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
--- OUTSIDE RECORDS SUMMARY | 2017-02-01 21:44 | XMS ---
Demographics + + + | Address | [address] | | | [address] | | | [place] [address] | + + + | Preferred Language | Unknown | + + + | Marital Status | Unknown | + + + | Jainism Affiliation | Unknown | + + + | Race | Unknown | + + + | Ethnic Group | Unknown | + + + Author + + + | Author | [facility] | + + + | Organization | [facility] | + + + | Address | [address] | | | [place] [address] | + + + | Phone | | + + + Care Team Providers + + + + | Care Pin Pusher Name | Role | Phone | + + + + Unavailable | Unavailable | + + + + PROBLEMS +---------+ + + +--------+ + + | Type | Condition | ICD9-CM | [id number] | Onset | Condition | SNOMED | | | | Code | Code | Dates | Status | Code | +---------+ + + +--------+ + + | Problem | Asthma | | J45.909 | | Active | 994205550 | +---------+ + + +--------+ + + | Problem | Essential | | I10 | | Active | 67467029 | | | (primary) | | | | | | | | hypertensi | | | | | | | | on | | | | | | +---------+ + + +--------+ + + | Problem | Nausea & | | R11.2 | | Active | 15987419 | | | vomiting | | | | | | +---------+ + + +--------+ + + | Problem | Diarrhea | | R19.7 | | Active | 43114231 | +---------+ + + +--------+ + + | Problem | History of | I25.2 | | | Active | 3603985 | | | acute | | | | | | | | anterior | | | | | | | | wall [place] | | | | | | +---------+ + + +--------+ + + | Problem | Diabetes | E11.9 | | | Active | 111481672 | | | type 2, | | | | | | | | controlled | | | | | | +---------+ + + +--------+ + + | Problem | Diabetes | E11.8 | | | Active | 493839405 | | | mellitus | | | [...] | | E11.40 | | Active | 100240584 | | | neuropathy | | | | | | +---------+ + + +--------+ + + ALLERGIES No Information SOCIAL HISTORY Never Assessed PLAN OF CARE VITAL SIGNS MEDICATIONS Unknown Medications RESULTS No Results PROCEDURES No Known procedures IMMUNIZATIONS No Known Immunizations MEDICAL (GENERAL) HISTORY [...] | Medical History | heart attack in 1988 | | + + +---------+ | Medical History | dislipidemia | | + + +---------+ | Medical History | hypothyroidism | | + + +---------+ | Medical History | wrist pain 2017 | | + + +---------+ | Surgical History | heart cath with stent | 08/2005 | + + +---------+ | Surgical History | SYBIL BSO | s | + + +---------+ | Surgical History | section | s | + + +---------+ | Surgical History | Sacrospinous ligament | 2007 | | | fixation ([place]) | | + + +---------+ | [...]
--- OUTSIDE RECORDS SUMMARY | 2017-02-01 21:44 | XMS ---
Demographics + + + | Address | [address] | | | [address] | | | [place] [address] | + + + | Preferred Language | Unknown | + + + | Marital Status | Unknown | + + + | Evangelical Affiliation | Unknown | + + + | Race | Unknown | + + + | Ethnic Group | Unknown | + + + Author + + + | Author | [facility] | + + + | Organization | [facility] | + + + | Address | [address] | | | [place] [address] | + + + | Phone | | + + + Care Team Providers + + + + | Care Pricing Intern Name | Role | Phone | + + + + Unavailable | Unavailable | + + + + PROBLEMS +---------+ + + +--------+ + + | Type | Condition | ICD9-CM | [id number] | Onset | Condition | SNOMED | | | | Code | Code | Dates | Status | Code | +---------+ + + +--------+ + + | Problem | Asthma | | J45.909 | | Active | 208259376 | +---------+ + + +--------+ + + | Problem | Essential | | I10 | | Active | 23095797 | | | (primary) | | | | | | | | hypertensi | | | | | | | | on | | | | | | +---------+ + + +--------+ + + | Problem | Nausea & | | R11.2 | | Active | 90060062 | | | vomiting | | | | | | +---------+ + + +--------+ + + | Problem | Diarrhea | | R19.7 | | Active | 16137866 | +---------+ + + +--------+ + + | Problem | History of | I25.2 | | | Active | 4844349 | | | acute | | | | | | | | anterior | | | | | | | | wall [place] | | | | | | +---------+ + + +--------+ + + | Problem | Diabetes | E11.9 | | | Active | 928695734 | | | type 2, | | | | | | | | controlled | | | | | | +---------+ + + +--------+ + + | Problem | Diabetes | E11.8 | | | Active | 901001960 | | | mellitus | | | [...] | | E11.40 | | Active | 351246927 | | | neuropathy | | | | | | +---------+ + + +--------+ + + ALLERGIES + + + + +--------+ | Substance | Reaction | Event Type | Date | Status | + + + + +--------+ | Tramadol HCl | Unknown | Drug Allergy | Aug, | Active | + + + + +--------+ | Cymbalta | Unknown | Drug Allergy | Aug, | Active | + + + + +--------+ | Tolterodine | Unknown | Drug Allergy | Aug, | Active | | Tartrate | | | | | + + + + +--------+ | Rizatriptan | Unknown | Drug Allergy | Aug, | Active | | Benzoate | | | | | + + + + +--------+ | Duloxetine HCl | Unknown | Drug Allergy | Aug, | Active | + + + + +--------+ SOCIAL HISTORY No smoking Hx information available PLAN OF CARE + +---------+ | Activity | Details | + +---------+ +---+ | | +---+ + + + | Follow Up | as scheduled with PCP Reason:null | + + + | Pending Test | X ray : Femur RT | + + + VITAL SIGNS + + + + | Height | 62 in | 2016-09-15 | + + + + | Weight | 198.4 lbs | 2016-09-15 | + + + + | BMI | 36.28 kg/m2 | 2016-09-15 | + + + + | Temperature | 98.6 degrees Fahrenheit | 2016-09-15 | + + + + | Heart Rate | 91 /min | 2016-09-15 | + + + + | Blood pressure systolic | 132 mm Hg | 2016-09-15 | + + + + | Blood pressure diastolic | 43 mm Hg | 2016-09-15 | + + + + MEDICATIONS + [...] | | | | Active | | [address] | Once a | capsule | | [...] | | | | | | | [place] | a day | | | | [...] + + | Office Visit, Est | September 15, 2016 | | | | Pt., Level 2 | | | | + + + + + IMMUNIZATIONS No Known Immunizations"
--- OUTSIDE RECORDS SUMMARY | 2017-02-01 21:44 | XMS ---
Demographics + + + | Address | [address] | | | [address] | | | [place] [address] | + + + | Preferred Language | Unknown | + + + | Marital Status | Unknown | + + + | Anglican Affiliation | Unknown | + + + | Race | Unknown | + + + | Ethnic Group | Unknown | + + + Author + + + | Author | [facility] | + + + | Organization | [facility] | + + + | Address | [address] | | | [place] [address] | + + + | Phone | | + + + Care Team Providers + + + + | Care Video Specialist Name | Role | Phone | + + + + Unavailable | Unavailable | + + + + PROBLEMS +---------+ + + +--------+ + + | Type | Condition | ICD9-CM | [id number] | Onset | Condition | SNOMED | | | | Code | Code | Dates | Status | Code | +---------+ + + +--------+ + + | Problem | Asthma | | J45.909 | | Active | 981464187 | +---------+ + + +--------+ + + | Problem | Essential | | I10 | | Active | 44217520 | | | (primary) | | | | | | | | hypertensi | | | | | | | | on | | | | | | +---------+ + + +--------+ + + | Problem | Nausea & | | R11.2 | | Active | 67450370 | | | vomiting | | | | | | +---------+ + + +--------+ + + | Problem | Diarrhea | | R19.7 | | Active | 46390895 | +---------+ + + +--------+ + + | Problem | History of | I25.2 | | | Active | 0371521 | | | acute | | | | | | | | anterior | | | | | | | | wall [place] | | | | | | +---------+ + + +--------+ + + | Problem | Diabetes | E11.9 | | | Active | 446807028 | | | type 2, | | | | | | | | controlled | | | | | | +---------+ + + +--------+ + + | Problem | Diabetes | E11.8 | | | Active | 277778020 | | | mellitus | | | [...] | | E11.40 | | Active | 757102783 | | | neuropathy | | | | | | +---------+ + + +--------+ + + ALLERGIES No Known Allergies SOCIAL HISTORY No smoking Hx information available PLAN OF CARE VITAL SIGNS MEDICATIONS No Known Medications RESULTS No Results PROCEDURES No Known procedures IMMUNIZATIONS No Known Immunizations"
--- OUTSIDE RECORDS SUMMARY | 2017-02-01 21:44 | XMS ---
Demographics + + + | Address | [address] | | | [address] | | | [place] [address] | + + + | Preferred Language | Unknown | + + + | Marital Status | Unknown | + + + | Adventist Affiliation | Unknown | + + + | Race | Unknown | + + + | Ethnic Group | Unknown | + + + Author + + + | Author | [facility] | + + + | Organization | [facility] | + + + | Address | [address] | | | [place] [address] | + + + | Phone | | + + + Care Team Providers + + + + | Care Ibm Bpm Developer Name | Role | Phone | + + + + Unavailable | Unavailable | + + + + PROBLEMS +---------+ + + +--------+ + + | Type | Condition | ICD9-CM | XKN81-ZH | Onset | Condition | SNOMED | | | | Code | Code | Dates | Status | Code | +---------+ + + +--------+ + + | Problem | Asthma | | J45.909 | | Active | [id number] | +---------+ + + +--------+ + + | Problem | Essential | | I10 | | Active | 05568693 | | | (primary) | | | | | | | | hypertensi | | | | | | | | on | | | | | | +---------+ + + +--------+ + + | Problem | Nausea & | | R11.2 | | Active | 10038022 | | | vomiting | | | | | | +---------+ + + +--------+ + + | Problem | Diarrhea | | R19.7 | | Active | 95966504 | +---------+ + + +--------+ + + | Problem | History of | I25.2 | | | Active | 3862895 | | | acute | | | | | | | | anterior | | | | | | | | wall [place] | | | | | | +---------+ + + +--------+ + + | Problem | Diabetes | E11.9 | | | Active | 332073966 | | | type 2, | | | | | | | | controlled | | | | | | +---------+ + + +--------+ + + | Problem | Diabetes | E11.8 | | | Active | 046385959 | | | mellitus | | | [...] | | E11.40 | | Active | 057944330 | | | neuropathy | | | | | | +---------+ + + +--------+ + + ALLERGIES Unknown Allergies SOCIAL HISTORY No smoking Hx information available PLAN OF CARE VITAL SIGNS MEDICATIONS Unknown Medications RESULTS No Results PROCEDURES No Known procedures IMMUNIZATIONS No Known Immunizations"
--- OUTSIDE RECORDS SUMMARY | 2017-02-01 21:44 | XMS ---
Demographics + + + | Address | [address] | | | [address] | | | [place] [address] | + + + | Preferred Language | Unknown | + + + | Marital Status | Unknown | + + + | Druze Affiliation | Unknown | + + + | Race | Unknown | + + + | Ethnic Group | Unknown | + + + Author + + + | Author | [facility] | + + + | Organization | [facility] | + + + | Address | [address] | | | [place] [address] | + + + | Phone | | + + + Care Team Providers + + + + | Care Freight Agent Name | Role | Phone | + + + + Unavailable | Unavailable | + + + + PROBLEMS +---------+ + + +--------+ + + | Type | Condition | ICD9-CM | ECT62-VI | Onset | Condition | SNOMED | | | | Code | Code | Dates | Status | Code | +---------+ + + +--------+ + + | Problem | Asthma | | J45.909 | | Active | [id number] | +---------+ + + +--------+ + + | Problem | Essential | | I10 | | Active | 14401063 | | | (primary) | | | | | | | | hypertensi | | | | | | | | on | | | | | | +---------+ + + +--------+ + + | Problem | Nausea & | | R11.2 | | Active | 03975338 | | | vomiting | | | | | | +---------+ + + +--------+ + + | Problem | Diarrhea | | R19.7 | | Active | 55558975 | +---------+ + + +--------+ + + | Problem | History of | I25.2 | | | Active | 3888799 | | | acute | | | | | | | | anterior | | | | | | | | wall [place] | | | | | | +---------+ + + +--------+ + + | Problem | Diabetes | E11.9 | | | Active | 842122783 | | | type 2, | | | | | | | | controlled | | | | | | +---------+ + + +--------+ + + | Problem | Diabetes | E11.8 | | | Active | 325258584 | | | mellitus | | | [...] | | E11.40 | | Active | 622293910 | | | neuropathy | | | | | | +---------+ + + +--------+ + + ALLERGIES Unknown Allergies SOCIAL HISTORY No smoking Hx information available PLAN OF CARE VITAL SIGNS MEDICATIONS Unknown Medications RESULTS No Results PROCEDURES No Known procedures IMMUNIZATIONS No Known Immunizations"
== END 2017-02-01 23:25 | disposition home or self-care (01) ==
LOC: ED 21:22
DX: R25.2 Cramp and spasm (principal); I25.2 Old myocardial infarction; E11.9 Type 2 diabetes mellitus without complications; Z79.84 Long term (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 oral hypoglycemic drugs; Z79.899 Other long term (current) 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; E03.9 Hypothyroidism, unspecified; E11.40 Type 2 diabetes mellitus with diabetic neuropathy, unspecified; Z86.14 Personal history of Methicillin resistant Staphylococcus aureus infection; F17.200 Nicotine dependence, unspecified, uncomplicated; Z88.5 Allergy status to narcotic agent; Z85.51 Personal history of malignant neoplasm of bladder; Z90.710 Acquired absence of both cervix and uterus; Z95.820 Peripheral vascular angioplasty status with implants and grafts
CPT/HCPCS: 80053; 81001; 85025; 96372; 99283; J1200

== ENCOUNTER 2017-03-24 08:09 | Day surgery (SDC) | payer MEDICARE, MEDICAID ==
[~2017-03-24] VITALS: Ht 157.5 cm; Wt 97.7 kg
[~2017-03-24 08:09] MED LIST changes: +GABAPENTIN100 MG PO
[2017-03-24] MEDS ORDERED: MULTI VITAMIN1 EACH PO (08:43)
[2017-03-24] MEDS ORDERED: GREEN TEA1 EACH PO (08:43)
--- NOTE | 2017-03-24 10:18 | NUR ---
03/24/17 1018 Celsa Shaffer 1014 PT ARRIVED IN PACU VERY SLEEPY. REPORT FROM ANESTHESIA.
[2017-03-24] MEDS ORDERED: NORCO 5-325 TA1 EACH PO (10:46)
--- NOTE | 2017-05-05 14:15 | OR ---
[facility] [address] [place], [place] [address] Signed DATE OF OPERATION: 03/24/2017 SURGEON: Kin Perez MD PREOPERATIVE DIAGNOSIS: Nasal obstruction due to septal deformity and alar collapse. 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 PROCEDURE: Revision septoplasty and left alar reconstruction. ANESTHESIA: General LMA, Wiliam STEVE. PREOPERATIVE HISTORY: Laury is a 56-year-old lady, who has had a septoplasty, cautery of the inferior turbinates several months ago for nasal obstruction. She has continued difficulty breathing through the left side of her nose now due to alar collapse and a small septal deformity on the left side, which she is being taken to the operating room for correction. OPERATIVE PROCEDURE AND FINDINGS: After informed consent, the patient was taken to the operating room and placed in the supine position, where general LMA anesthesia was induced. The patient and procedure were verified. Intranasal inspection showed a nodule on the left anterior septum. There was prominent alar cartilage in the left nasal cavity causing obstruction. A 1% lidocaine with epi was injected in the septal cartilage and over the alar cartilage intranasally. The septal deformity was corrected by elevating mucosa off the deviated septal bone and cartilage with a Shiela elevator and excision of obstructive cartilage and bone with Nathanael. Airway was improved in this manner. The alar cartilage was then excised using a #67 [place] blade. Elliptical excision, left intranasal incision with underlying cartilage. Bleeding was minimal and controlled with needle point suction cautery. The incision was left open. Trimmed Merocel pack coated with Neosporin placed in the left nasal cavity. Hemostasis was verified. The pharynx was suctioned clear blood secretions. The patient was then awakened, extubated, and transported to the recovery room in good condition. COMPLICATIONS: Electronically Signed By: KIN PEREZ MD 05/05/17 1415 PATIENT NAME: LAURY WYNN OPERATIVE REPORT DATE OF : 60 REPORT #: [id number] PHYSICIAN: KIN PEREZ MD PCP: MARILYN CLAYTON REPORT IS CONFIDENTIAL AND NOT TO BE RELEASED WITHOUT AUTHORIZATION [facility] [address] [place] [address] Signed No complications. BLOOD LOSS: Minimal. SPECIMEN: No specimen. DRAINS: No drains. Kin Perez MD GC/MODL /[id number] Electronically Signed By: KIN PEREZ MD 05/05/17 1415 PATIENT NAME: LAURY WYNN OPERATIVE REPORT DATE OF : 60 REPORT #: [id number] PHYSICIAN: KIN PEREZ MD PCP: MARILYN CLAYTON REPORT IS CONFIDENTIAL AND NOT TO BE RELEASED WITHOUT AUTHORIZATION
== END 2017-03-24 13:20 | disposition home or self-care (01) ==
LOC: DS 08:09 → OPS 08:09 → DS 10:45 → OPS 10:45
PROVIDERS: Otolaryngology
PROC: 09SM0ZZ Reposition Nasal Septum, Open Approach (ICD-10-PCS; principal; 2017-03-24 09:45)
DX: J34.2 Deviated nasal septum (principal); M95.0 Acquired deformity of nose; J34.89 Other specified disorders of nose and nasal sinuses; I25.10 Atherosclerotic heart disease of native coronary artery without angina pectoris; J44.9 Chronic obstructive pulmonary disease, unspecified; E11.40 Type 2 diabetes mellitus with diabetic neuropathy, unspecified; E03.9 Hypothyroidism, unspecified; E78.00 Pure hypercholesterolemia, unspecified; F31.9 Bipolar disorder, unspecified; Z88.5 Allergy status to narcotic agent; Z88.8 Allergy status to other drugs, medicaments and biological substances; Z95.5 Presence of coronary angioplasty implant and graft; Z90.710 Acquired absence of both cervix and uterus; Z98.890 Other specified postprocedural states
CPT/HCPCS: 00160; J1100; J1885; J2250; J2405; J2704; J2765; J3010

== ENCOUNTER 2018-03-06 22:18 | Emergency (ER) | payer MEDICARE, MEDICAID ==
[~2018-03-06] VITALS: Ht 157.5 cm; Wt 97.7 kg
[~2018-03-06 22:18] MED LIST changes: +BACLOFEN10 MG PO; +GLIPIZIDE10 MG PO; +GREEN TEA1 EACH PO; +LANTUS100 UNITS/ SUB-Q; +MULTI VITAMIN1 EACH PO; +NORCO 5-325 TA1 EACH PO; +REGLAN10 MG PO; +ZOFRAN4 MG PO
--- OUTSIDE RECORDS SUMMARY | 2018-03-06 22:24 | XMS ---
PreManage Notification: GROVER WYNN Security Internet Sales Manager Events No recent Security Events currently on file CRITERIA MET - Group Notification - [facility] - 2 Visits in 30 Days CARE PROVIDERS MARILYN CLAYTON Nurse Practitioner: Family 09/07/2017-Current PHONE: Unknown Mahendra Cash Primary Care Current PHONE: Unknown DR AMES Primary Care 03/14/2016-Current PHONE: [phone] Charisse has no Care Guidelines for this patient. Care History Social 03/18/2016 [facility] ENCOURAGE PATIENT TO USE PCP OR WALK-IN CLINIC FOR NON-EMERGENT PROBLEMS. SHE CAN CALL COST ACCOUNTING CLERK FOR HELP OR QUESTIONS. [phone]. Medical/Surgical 09/07/2017 [facility] - Patient is currently established with [facility]. If patient is seen in the ED during business hours. Please contact CHWs at [facility] at [phone]. Care Recommendation: This patient has had 5 or more Emergency Department visits in the last 12 months.\T\nbsp; Patient requires education on the scope and purpose of the ED as an acute care provider not a Primary Care Provider and should not be utilized for chronic conditions.\T\nbsp; If patient returns to ED please contact Community Health WorkerWendy at [phone]. These are guidelines and the provider should exercise clinical judgment when providing care. E.D. VISIT COUNT (12 MO.) 4 [facility]. TOTAL 4 NOTE: Visits indicate total known visits. ED/UCC VISIT TRACKING (12 MO.) 03/06/2018 22:19 [facility] [place] TYPE: Emergency COMPLAINT: - SUICIDAL/HEAD INJURY/DIZZINESS 02/07/2018 00:22 [facility] [place] TYPE: Emergency COMPLAINT: - DIZZY/POSS BLODD SUGAR PROBLEM DIAGNOSES: - Gastro-esophageal reflux disease without esophagitis - retirement (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 insulin - Allergy status to narcotic agent status - Hypothyroidism, unspecified - Allergy status to other drugs, medicaments and biological substances status - Type 2 diabetes mellitus with hyperglycemia - Other half-way (current) 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 - assembler arranger (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 aspirin - Nicotine dependence, unspecified, uncomplicated 01/29/2018 18:00 [facility] [place] TYPE: Emergency COMPLAINT: - HIGH BLOOD SUGAR DIAGNOSES: - Allergy status to narcotic agent status - assembler arranger (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 oral hypoglycemic drugs - Migraine, unspecified, not intractable, without status migrainosus - Other chest pain - Unspecified fall, initial encounter - assembler arranger (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 aspirin - Allergy status to other drugs, medicaments and biological substances status - Other half-way (current) 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 - Gastro-esophageal reflux disease without esophagitis - Hypothyroidism, unspecified - Gastritis, unspecified, without bleeding - Unspecified sprain of right elbow, initial encounter - Type 2 diabetes mellitus with hyperglycemia - Nicotine dependence, unspecified, uncomplicated 09/04/2017 20:[address] [facility] [place] TYPE: Emergency COMPLAINT: - STROKE SYMPTOMS DIAGNOSES: - Type 2 diabetes mellitus with diabetic neuropathy, unspecified - Other piano accompanist (current) 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 - Gastro-esophageal reflux disease without esophagitis - Migraine, unspecified, not intractable, without status migrainosus - retirement (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 aspirin - Paresthesia of skin - Allergy status to other drugs, medicaments and biological substances status - Hypothyroidism, unspecified - Allergy status to narcotic agent status - Nicotine dependence, unspecified, uncomplicated INPATIENT VISIT TRACKING (12 MO.) No inpatient visits to display in this time frame [email or web address]
== END 2018-03-08 10:53 | disposition home or self-care (01) ==
LOC: ED 22:18
DX: S09.90XA Unspecified injury of head, initial encounter (principal); R45.851 Suicidal ideations; I25.2 Old myocardial infarction; E03.9 Hypothyroidism, unspecified; K21.9 Gastro-esophageal reflux disease without esophagitis; J45.909 Unspecified asthma, uncomplicated; E11.40 Type 2 diabetes mellitus with diabetic neuropathy, unspecified; F31.9 Bipolar disorder, unspecified; Z85.51 Personal history of malignant neoplasm of bladder; F17.200 Nicotine dependence, unspecified, uncomplicated; Z90.49 Acquired absence of other specified parts of digestive tract; Z88.5 Allergy status to narcotic agent; Z88.8 Allergy status to other drugs, medicaments and biological substances; Z79.4 Long term (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 insulin; Z79.899 Other long term (current) 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; Z79.82 Long term (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 aspirin; W19.XXXA Unspecified fall, initial encounter
CPT/HCPCS: 70450; 80053; 81001; 85025; 94640; 96372; 99284-25; G0480; J1200; Q0163

== ENCOUNTER 2018-03-08 18:40 | Emergency (ER) | payer MEDICARE, MEDICAID ==
[~2018-03-08] VITALS: Ht 157.5 cm; Wt 97.7 kg
--- OUTSIDE RECORDS SUMMARY | 2018-03-08 18:44 | XMS ---
PreManage Notification: GROVER WYNN Security Manager Delivery Events No recent Security Events currently on file CRITERIA MET - Group Notification - [facility] - 2 Visits in 30 Days CARE PROVIDERS MARILYN CLAYTON Nurse Practitioner: Family 09/07/2017-Current PHONE: Unknown Mahendra Cash Primary Care Current PHONE: Unknown DR AMES Primary Care 03/14/2016-Current PHONE: [phone] Charisse has no Care Guidelines for this patient. Care History Social 03/18/2016 [facility] ENCOURAGE PATIENT TO USE PCP OR WALK-IN CLINIC FOR NON-EMERGENT PROBLEMS. SHE CAN CALL PRIVATE EQUITY ASSOCIATE FOR HELP OR QUESTIONS. [phone]. Medical/Surgical 09/07/2017 [facility] - Patient is currently established with [facility]. If patient is seen in the ED during business hours. Please contact CHWs at [facility] at [phone]. Care Recommendation: This patient has had 5 or more Emergency Department visits in the last 12 months.\T\nbsp; Patient requires education on the scope and purpose of the ED as an acute care provider not a Primary Care Provider and should not be utilized for chronic conditions.\T\nbsp; If patient returns to ED please contact Community Health WorkerWendy at [phone]. These are guidelines and the provider should exercise clinical judgment when providing care. E.D. VISIT COUNT (12 MO.) 5 [facility]. TOTAL 5 NOTE: Visits indicate total known visits. ED/UCC VISIT TRACKING (12 MO.) 03/08/2018 18:40 [facility] [place] TYPE: Emergency COMPLAINT: - ALTERED MENTAL STATUS 03/06/2018 22:19 [facility] [place] TYPE: Emergency COMPLAINT: - SUICIDAL/HEAD INJURY/DIZZINESS 02/07/2018 00:22 [facility] [place] TYPE: Emergency COMPLAINT: - DIZZY/POSS BLODD SUGAR PROBLEM DIAGNOSES: - Gastro-esophageal reflux disease without esophagitis - long term care pharmacist (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 insulin - Allergy status to narcotic agent status - Hypothyroidism, unspecified - Allergy status to other drugs, medicaments and biological substances status - Type 2 diabetes mellitus with hyperglycemia - Other intermodal owner operator truck driver (current) 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 - long term care pharmacist (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 aspirin - Nicotine dependence, unspecified, uncomplicated 01/29/2018 18:00 [facility] [place] TYPE: Emergency COMPLAINT: - HIGH BLOOD SUGAR DIAGNOSES: - Allergy status to narcotic agent status - long term care pharmacist (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 oral hypoglycemic drugs - Migraine, unspecified, not intractable, without status migrainosus - Other chest pain - Unspecified fall, initial encounter - long term care pharmacist (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 aspirin - Allergy status to other drugs, medicaments and biological substances status - Other intermodal owner operator truck driver (current) 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 - Gastro-esophageal reflux disease without esophagitis - Hypothyroidism, unspecified - Gastritis, unspecified, without bleeding - Unspecified sprain of right elbow, initial encounter - Type 2 diabetes mellitus with hyperglycemia - Nicotine dependence, unspecified, uncomplicated 09/04/2017 20:[address] [facility] [place] TYPE: Emergency COMPLAINT: - STROKE SYMPTOMS DIAGNOSES: - Type 2 diabetes mellitus with diabetic neuropathy, unspecified - Other mcfp (current) 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 - Gastro-esophageal reflux disease without esophagitis - Migraine, unspecified, not intractable, without status migrainosus - long term care pharmacist (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 aspirin - Paresthesia of skin - Allergy status to other drugs, medicaments and biological substances status - Hypothyroidism, unspecified - Allergy status to narcotic agent status - Nicotine dependence, unspecified, uncomplicated INPATIENT VISIT TRACKING (12 MO.) No inpatient visits to display in this time frame [email or web address]
== END 2018-03-08 20:39 | disposition home or self-care (01) ==
LOC: ED 18:40
DX: G25.9 Extrapyramidal and movement disorder, unspecified (principal); E11.9 Type 2 diabetes mellitus without complications; E03.9 Hypothyroidism, unspecified; K21.9 Gastro-esophageal reflux disease without esophagitis; J45.909 Unspecified asthma, uncomplicated; E11.40 Type 2 diabetes mellitus with diabetic neuropathy, unspecified; F31.9 Bipolar disorder, unspecified; F17.200 Nicotine dependence, unspecified, uncomplicated; Z95.5 Presence of coronary angioplasty implant and graft; Z85.51 Personal history of malignant neoplasm of bladder; Z88.8 Allergy status to other drugs, medicaments and biological substances; Z88.5 Allergy status to narcotic agent; Z79.899 Other long term (current) 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; Z79.4 Long term (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 insulin; Z79.82 Long term (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 aspirin
CPT/HCPCS: 99284

== ENCOUNTER 2018-07-08 15:49 | Emergency (ER) | payer MEDICARE, MEDICAID ==
[~2018-07-08] VITALS: Ht 157.5 cm; Wt 90.9 kg
--- OUTSIDE RECORDS SUMMARY | ~2018-07-08 | XMS | Encounter Summary ---
Demographics + + + | Address | [address] | | | [place] [address] | + + + | Home Phone | | + + + | Preferred Language | Unknown | + + + | Marital Status | Single | + + + | Hinduism Affiliation | Unknown | + + + | Race | White | + + + | Ethnic Group | Not or | + + + Author + + + | Organization | Unknown | + + + | Address | Unknown | + + + | Phone | Unavailable | + + + Support + + + + + | Name | Relationship | Address | Phone | + + + + + | Lolis Rodriguez | ECON | [address] | | | | [address], [place] | | | | | [address] | | + + + + + Care Team Providers + +------+ + | Care Brush Worker Name | Role | Phone | + +------+ + PCP | Unavailable | + +------+ + Encounter Details +--------+ + + + + | Date | Type | Department | Care Team | Description | +--------+ + + + + | 08/21/ | Results | | Naun [facility] | | | 2000 | Only | | | | +--------+ + + [...] | + +--------+ + + + | ERCP | Routin | 08/22/1999 | | Results for this | | | e | 2:23 PM | | procedure are in the | | | | PDT | | results section. | + +--------+ + + + documented in this encounter Results ERCP (08/22/1999 2:23 PM PDT) + + + + + + | Component | Value | Ref Range | Performed | Pathologist | | | | | At | Signature | + + + + + + | ERCP | Radiologist 1: ARLEN, | | | | | | Shi BAEZ, | | | | | | M.DMarkusRETROGRADE | | | | | | CHOLANGIOGRAM: | | | | | 00 Dictated 09/02/99 | | | | | | This examination was | | | | | | submitted for | | | | | | interpretation on | | | | | | 09/02/99. Itwas | | | | | | performed on 08/22/99. | | | | | | The patient is a | | | | | | 38-year-old woman with | | | | | | abdominal pain. Two | | | | | | images from a retrograde | | | | | | cholangiogram are | | | | | | submitted | | | | | | forinterpretation. The | | | | | | biliary tree was | | | | | | opacified in a | | | | | | retrograde fashionby the | | | | | | | | | | | | Gastroneurologist. Th | | | | | | e extrahepatic biliary | | | | | | tree has a | | | | | | normalappearance as do | | | | | | the opacified | | | | | | intrahepatic biliary | | | | | | radicles. Nostricture | | | | | | , mass or filling defect | | | | | | is seen. By report, | | | | | | asphincterotomy was | | | | | | performed. IMPRESSION: | | | | | | Negative retrograde | | | | | | cholangiogram. END OF | | | | | | IMPRESSION: | | | | + + + + + + + + | Specimen | + + | | + + + +---------+ + + | Performing | Address | City/State/Zipcode | Phone Number | | Organization | | | | + +---------+ + + | [place] [facility] | | | | [facility] | | | | + +---------+ + + documented in this encounter Visit Diagnoses Not on filedocumented in this encounter"
--- OUTSIDE RECORDS SUMMARY | ~2018-07-08 | XMS | Encounter Summary ---
Demographics + + + | Address | [address] | | | [place] [address] | + + + | Home Phone | | + + + | Preferred Language | Unknown | + + + | Marital Status | Single | + + + | Worship Affiliation | Unknown | + + + | Race | White | + + + | Ethnic Group | Not or | + + + Author + + + | Author | [facility] | + + + | Organization | [facility] | + + + | Address | Unknown | + + + | Phone | Unavailable | + + + Support + + + + + | Name | Relationship | Address | Phone | + + + + + | Lolis Rodriguez | [address] | [address] | | | | | [address] | | | | | [address] | | + + + + + Care Team Providers + +------+ + | Care Heat Treat Technician Name | Role | Phone | + +------+ + | Mahendra Cash MD | PCP | | + +------+ + Reason for Visit + + + | Reason | Comments | + + + | Central Line Care | | + + + Other (Routine) +--------+--------+ [...] | | | postprocedur | LEGACY | [place] | | | | | al | MEDICAL | [address] | | | | | status(V45.8 | GROUP | [address] | | | | | 9) | [place] | [place], [place] | | | | | Procedures | [address] | [address] | | | | | PORT FLUSH | [address] | Phone: | | | | | LABS | [address] | [phone] | | | | | | [place], [place] | Fax: | | | | | | [address] | [phone] | | | | | | Phone: | | | | | | | [phone] | | | | | | | Fax: | | | | | | | [phone] | | +--------+--------+ + + + + Encounter Details +--------+ + + + + | Date | Type | Department | Care Team | Description | +--------+ + + + + | 10/10/ | [facility] | Sree Abdul Nurse | Central Line Care | | 2014 | l Support | [facility] [place] | [address] | | | | Staff | [address] | [address] [place], [place] | | | | | [address] [place], [place] | [address] | | | | | [address] | [phone] | | | | | [phone] | | | | | | | Sree Jain Ma | | | | | | Schedule [place], | | | | | | [place] [address] | | +--------+ + + + + [...] + + + | Blood Pressure | 131/59 | 10/10/2013 3:48 PM | | | | | PDT | | + + + + + | Pulse | 92 | 10/10/2013 3:48 PM | | | | | PDT | | + + + + + | Temperature | 37.2 C (98.9 F) | 10/10/2013 3:48 PM | | | | | PDT [...] + + + + | Weight | - | - | | + + + + + | Height | - | - | | + + + + + | Body Mass Index | - | - | | + + + + + documented in this encounter Progress Notes Tari Shankar, YOLANDA - 10/10/2013 4:12 PM Brionna Javed is here today for port flush. Por t located in right chest. It was accessed, flushed and deaccessed per protocol. Blood return Present. Site unremarkable, no labs. Patient tolerated procedure without complication. At discharge, pt alert & oriented x3, no acute distress and mood & affect appropriate. documented in this en counter Plan of Treatment Not on filedocumented as of this encounter Visit Diagnoses + + | Diagnosis | + + | Abdominal pain, generalized - Primary | + + documented in this encounter Administered Medications + +--------+ +-------+------+------+ | Medication Order | MAR | Action | Dose | Rate | Site | | | Action | Date | | | | + +--------+ +-------+------+------+ | heparin 100 unit/mL IV flush | Given | 10/11/19 | 500 | | | | 500 Units 500 Units (5 mL), | | 14 4:05 | Units | | | | Intracatheter, ONCE, 1 dose, Mon | | PM PDT | | | | | 10/10/13 at 1630 | | | | | | + +--------+ +-------+------+------+ +---+---+ | | | +---+---+ documented in this encounter"
--- OUTSIDE RECORDS SUMMARY | ~2018-07-08 | XMS | Encounter Summary ---
Demographics + + + | Address | [address] | | | [place] [address] | + + + | Home Phone | | + + + | Preferred Language | Unknown | + + + | Marital Status | Single | + + + | Alevism Affiliation | Unknown | + + + | Race | White | + + + | Ethnic Group | Not or | + + + Author + + + | Author | [facility] | + + + | Organization | [facility] | + + + | Address | Unknown | + + + | Phone | Unavailable | + + + Support + + + + + | Name | Relationship | Address | Phone | + + + + + | Lolis Rodriguez | [place] | [address] | | | | | [address] | | | | | [address] | | + + + + + Care Team Providers + +------+ + | Care Interactive Media Project Manager Name | Role | Phone | [...] | | 2017 | | [facility] | [address] | | | | | [place] [address] | | | | | [facility] | [place], [place] | | | | | [address] | [address] | | | | | [place], | [phone] | | | | | [place] [address] | | | | | | [phone] | | | +--------+ + + + [...]
--- OUTSIDE RECORDS SUMMARY | ~2018-07-08 | XMS | Clinical Summary ---
Demographics + + + | Address | [address] | | | [place] [address] | + + + | Home Phone | | + + + | Preferred Language | Unknown | + + + | Marital Status | Single | + + + | Latter-Day Affiliation | Unknown | + + + | Race | Unknown | + + + | Ethnic Group | Unknown | + + + Author + + + | Author | [facility] | | | and [place] | + + + | Organization | [facility] | | | and [place] [...] Team Providers + +------+ + | Care Warehouse Associate Name | Role | Phone | + +------+ + | Gonzales Rivera NP | PP | | + +------+ + Allergies + + + + + + | Active Allergy | Reactions | Severity | Noted | Comments | | | | | Date | | + + + + + + | Celecoxib | Shortness Of Breath, | High | 07/27/19 | | | | Swelling | | 16 | | + + + + + + | Duloxetine | Other (See Comments) | Low | 01/12/20 | Suicidal thoughts | | | | | 14 | [...] | + + + +---------+------+------+-------+ | albuterol 2.5 mg/3 | Inhale 2.5 mg into | | 0 | 06/0 | | Activ | | mL nebulizer | the lungs. | | | 6/20 | | e | | solution | | | | 16 | | | + + + +---------+------+------+-------+ | VENTOLIN HFA 108 | INL 2 PFS PO Q 4 H | | 11 | 11/0 | | Activ | | (90 Base) MCG/ACT | PRF WHZ OR SOB | | | 2/20 | | e | | inhaler | | | | 18 | | | + + + +---------+------+------+-------+ | | Inhale 3 mLs into | | 0 | 03/0 | | Activ | | albuterol-ipratropiu | the lungs. | | | 8/20 | | e | | m 2.5-0.5 mg/3 mL | | | | 16 | | | | SOLN | | | | | | | + + + +---------+------+------+-------+ | atorvaSTATin | Take 40 mg by mouth. | | 0 | 03/0 | | Activ | | (LIPITOR) 40 mg | | | | 8/20 | | e | | tablet | | | | 16 | | | + + + +---------+------+------+-------+ | baclofen | TK 1 T PO QAM AND 1 | | 5 | 09/2 | | Activ | | (LIORESAL) 10 mg | T IN THE EVENING AND | | | 5/20 | | e | | tablet | 2 TS AT NIGHT | | | 18 | | | | | NEEDED FOR MUSCLE | | | | | | | | SPASM/PAIN | | | | | | + + + +---------+------+------+-------+ | diclofenac | APPLY 2 GRAM | | 3 | 11/0 | | Activ | | (VOLTAREN) 1% GEL | TOPICALLY AA BID | | | 2/20 | | e | | | | | | 18 | | | + + + +---------+------+------+-------+ | PREMARIN 0.625 | INSERT 1 GRAM | | 3 | 09/2 | | Activ | | MG/GM vaginal cream | VAGINALLY AT NIGHT | | | 4/20 | | e | | | TWICE A WEEK | | | 18 | | | + + + +---------+------+------+-------+ | fluticasone | INSTILL 1 TO 2 | | 0 | 11/0 | | Activ | | (FLONASE) 50 | SPRAYS IEN BID | | | 2/20 | | e | | mcg/nasal spray | | | | 18 | | | + + + +---------+------+------+-------+ | glipiZIDE | TK 1 T PO BID | | 3 | 09/0 | | Activ | | (GLUCOTROL) 5 mg | | | | 6/20 | | e | | tablet | | | | 18 | | | + + + +---------+------+------+-------+ | ibuprofen | TK 1 T PO Q 6 H PRN | | 5 | 09/2 | | Activ | | (ADVIL,MOTRIN) 800 | P | | | 4/20 | | e | | MG tablet | | | | 18 | | | + + + +---------+------+------+-------+ | metFORMIN | TAKE 1 TABLET BY | | 0 | 08/3 | | Activ | | (GLUCOPHAGE-XR) 500 | MOUTH TWICE DAILY | | | 20 | | e | | mg 24 hr tablet | | | | 16 | | | + + + +---------+------+------+-------+ | metoprolol | TK 1 T PO BID | | 11 | 11/0 | | Activ | | succinate | | | | 20 | | e | | (TOPROL-XL) 25 mg 24 | | | | 18 | | | | hr tablet | | | | | | | + + + +---------+------+------+-------+ | mometasone | 2 sprays by Nasal | | 0 | 03/0 | | Activ | | (NASONEX) 50 | route. | | | 8/20 | | e | | mcg/nasal spray | | | | 16 | | | + + + +---------+------+------+-------+ | Multiple Vitamin | Take 1 capsule by | | 0 | | | Activ | | (MULTIVITAMIN) | mouth. | | | | | e | | capsule | | | | | | | + + + +---------+------+------+-------+ | nitroglycerin | Place 0.4 mg under | | 0 | 12/1 | | Activ | | (NITROSTAT) 0.4 mg | the tongue. | | | 1/20 | | e | | SL tablet | | | | 14 | | | + + + +---------+------+------+-------+ | omeprazole | TK 1 C PO D | | 3 | 09/0 | | Activ | | (PRILOSEC) 20 mg | | | | 6/20 | | e | | capsule | | | | 18 | | | + + + +---------+------+------+-------+ | ondansetron | DIS ONE T PO Q 8 | | 0 | 09/0 | | Activ | | (ZOFRAN ODT) 4 mg | HOURS NEEDED | | | 7/20 | | e | | disintegrating | | | | 18 | | | | tablet | | | | | | | + + + +---------+------+------+-------+ | promethazine | TAKE 1 TABLET BY | | 0 | 06/1 | | Activ | | (PHENERGAN) 25 mg | MOUTH EVERY 6 HOURS | | | 5/20 | | e | | tablet | NEEDED FOR NAUSEA | | | 16 | | | + + + +---------+------+------+-------+ | sertraline | TAKE 2 TABLETS BY | | 0 | 03/0 | | Activ | | (ZOLOFT) 100 mg | MOUTH AT BEDTIME | | | 8/20 | | e | | tablet | | | | 16 | | | + + + +---------+------+------+-------+ | tiotropium | Spiriva Respimat | | 0 | | | Activ | | (SPIRIVA RESPIMAT) | once qday | | | | | e | | 1.25 mcg/puff | | | | | | | | inhaler | | | | | | | + + + +---------+------+------+-------+ | gabapentin | GRADUALLY INCREASE | | 5 | 12/0 | | Activ | | (NEURONTIN) 300 mg | TO TAKING ONE C PO | | | 5/20 | | e | | capsule | 3 XD TOLERATED | | | 18 | | | + + + +---------+------+------+-------+ | LANTUS 100 UNIT/ML | INJECT 10 UNITS | | 2 | 12/0 | | Activ | | injection (vial) | UNDER THE SKIN QHS | | | 7/20 | | e | | | | | | 18 | | | + + + +---------+------+------+-------+ | HUMALOG 100 | | | 2 | 12/2 | | Activ | | UNIT/ML injection | | | | 0/20 | | e | | (vial) | | | | 18 | | | + + + +---------+------+------+-------+ | Insulin | | | 5 | 12/2 | | Activ | | Syringe-Needle U-100 | | | | 0/20 | | e | | (INSULIN SYRINGE | | | | 18 | | | | .3CC/30GX5/16") 30G | | | | | | | | X 5/16" 0.3 ML MISC | | | | | | | + + + +---------+------+------+-------+ | Insulin | USE TO INJECT LANTUS | | 5 | 12/0 | | Activ | | Syringe-Needle U-100 | QHS | | | 7/20 | | e | | (INSULIN SYRINGE | | | | 18 | | | | .5CC/31GX5/16") 31G | | | | | | | | X 5/16" 0.5 ML MISC | | | | | | | + + + +---------+------+------+-------+ | levothyroxine | TK 1 T PO QD | | 1 | 12/2 | | Activ | | (SYNTHROID) 100 mcg | | | | 8/20 | | e | | tablet | | | | 18 | | | + + + +---------+------+------+-------+ | diphenhydrAMINE | Take 50 mg by mouth | | 0 | | | Activ | | (BENADRYL) 50 MG | nightly as needed | | | | | e | | tablet | for Itching. | | | | | | + + + +---------+------+------+-------+ Active Problems + + + | Problem | Noted Date | + + + | Overactive bladder | 01/07/2018 | + + + | Female bladder prolapse | 01/07/2018 | + + + | Difficulty in urination | 01/07/2018 | + + + | Dyspareunia | 01/07/2018 | + + + | Foreign body in vagina | 01/07/2018 | + + + | Mixed stress and urge urinary incontinence | 01/07/2018 | + + + | Pain in pelvis | 01/07/2018 | + + + | Vaginal hematoma | 01/07/2018 | + + + | Vaginal vault prolapse | 01/07/2018 | + + + | Burn of left leg | 07/27/2015 | + + + | Oropharyngeal dysphagia | 09/14/2013 | + + + + + | Overview: Last Assessment & Plan: History of intermittent | | difficulty swallowing to solid foods. May have had previous | | diagnosis of esophageal stricture but denies having previous | | dilation. Will go ahead with upper endoscopy and esophageal | | dilation. | + + + + + | Abdominal pain, generalized | 09/01/2013 | + + + + + | Overview: Last Assessment & Plan: Symptoms consistent with | | irritable bowel syndrome with associated constipation and loose | | stools. Advise trial of Citrucel as a bulk agent. Could consider | | dicyclomine but patient already on chronic narcotics. | + + + + + | Diverticulosis of large intestine | 09/01/2013 | + + + + + | Overview: Overview: | | ICD10 | + + + + + | History of colonic polyps | 09/01/2013 | + + + + + | Overview: Overview: [id number] Assessment & Plan: Colonoscopy | | procedure discussed including risks of perforation, bleeding, and | | affecting breathing. Patient is agreeable to procedure. Use MAC | | given lung disease history and chronic narcotic use. | |Colonoscopy procedure discussed including risks of perforation, bleeding, and affecting nelly athing. Patient is agreeable to procedure. Use MAC given lung disease history and chronic n arcotic use. | + + + + + | Osteoarthrosis | 09/01/2013 | + + + + + | Overview: Overview: | | ICD10 | + + + + + | Other postprocedural status(V45.89) | 09/01/2013 | + + + | Type II or unspecified type diabetes mellitus without mention of | 09/01/2013 | | complication, not stated as uncontrolled | | + + + | Port-A-Cath in place | 08/16/2013 | + + + | Cardiac disease | 08/03/2013 | + + + + + | Overview: Overview: | | TN x 5; has stent; last angioplasty May 2013 | + + + + + | Carpal tunnel syndrome | 08/03/2013 | + + + | Chronic fatigue syndrome | 08/03/2013 | + + + | Congenital hypothyroidism without goiter | 08/03/2013 | + + + | Diverticulosis of large intestine without hemorrhage | 08/03/2013 | + + + | Lumbar spinal stenosis | 08/03/2013 | + + + | Nasal polyps | 08/03/2013 | + + + | Primary osteoarthritis involving multiple joints | 08/03/2013 | + + + | PUD (peptic ulcer disease) | 08/03/2013 | + + + + + | Overview: Overview: | | Last bleeding episode several years ago | + + + + + | Simple chronic bronchitis | 08/03/2013 | + + + | Type 2 diabetes mellitus with diabetic neuropathy | 08/03/2013 | + + + | Bipolar I disorder, most recent episode (or current) manic, mild | 07/01/2007 | + + + | Chronic combined systolic and diastolic congestive heart failure | 07/01/2007 | + + + | Gastroesophageal reflux disease without esophagitis | 07/01/2007 | + + + | Pure hypercholesterolemia | 07/01/2007 | + + + | Urge incontinence of urine | 07/01/2007 | + + + Family History + +------+ + + | Relation | Name | Status | Comments | + +------+ + + | Father | | | | + +------+ + + | Mother | | | | + +------+ + + Social History + +-------+ +--------+------+ [...] Filed Vital Signs + + + + | Vital Sign | Reading | Time Taken | + + + + | Blood Pressure | - | - | + + + + | Pulse | - | - | + + + + | Temperature | - | - | + + + + | Respiratory Rate | - | - | + + + + | Oxygen Saturation | - | - | + + + + | Inhaled Oxygen | - | - | | Concentration | | | + + + + | Weight | 83.9 kg (185 lb) | 03/15/20181509 PST | + + + + | Height | 157.5 cm (5' 2") | 03/15/20181509 PST | + + + + | Body Mass Index | 33.84 | 03/15/20181509 PST | + + + + Plan of Treatment + + + + + | Health Maintenance | Due Date | Last Done | Comments | + + + + + | Hepatitis C | | | | | Screening | 1 | | | + + + + + | Diabetic Eye Exam | | | | | | 9 | | | + + + + + | Diabetic Foot Exam | | | | | | 9 | | | + + + + + | Hemoglobin A1c | | | | | Screening | 9 | | | + + + + + | Cervical Cancer | | | | | Screening (Pap) | 1 | | | + + + + + | Breast Cancer | | | | | Screening (Ages | 1 | | | | 50-74) | | | | + + + + + | Colorectal Cancer | | | | | Screening | 1 | | | | (Colonoscopy) | | | | + + + + + | Adult Annual | | | | | Wellness Visit | 8 | | | + + + + + | Microalbumin | | | | | Screening | 8 | | | + + + + + | Vaccine: Zoster (2 | | 10/30/2017 | | | of 2) | 8 | | | + + + + + | Vaccine: | | 08/10/2017, 10/08/2013, | | | Dtap/Tdap/Td (4 - | 8 | 07/12/2009 | | | Td) | | | | + + + + + | Vaccine: | Completed | 01/14/2013 | | | Pneumococcal 19-64 | | | | | (PPSV23 only) Medium | | | | | Risk | | | | + + + + + | Vaccine: Influenza | Completed | 10/30/2017, 11/13/2016, | | | | | 11/27/2014, Additional history | | | | | exists | | + + + + + Results Not on filefrom Last 3 Months Insurance + +--------+ +--------+ +---------+--------+ | Payer | Benefi | Subscriber | Effect | Phone | Address | Type | | | t Plan | ID | etta | | | | | | / | | Dates | | | | | | Group | | | | | | + +--------+ +--------+ +---------+--------+ | MEDICARE | MEDICA | [id number] | 10/25/19 | [phone] | | Medica | | | RE | | 01-Pre | 5 | | re | | | PART A | | sent | | | | | | AND B | | | | | | + +--------+ +--------+ +---------+--------+ + +--------+ +--------+ + + | Guarantor Name | Accoun | Relation to | Date | Phone | Billing Address | | | t Type | Patient | of | | | | | | | | | | + +--------+ +--------+ + + | Laury Crockett | Person | Self [birth year] | [address] | | | al/Fam | | 1961 | [phone] | [address] [place] | | | de | | | 9 ([place]) | [address] | + +--------+ +--------+ + + Advance Directives Patient has advance care planning documents on file. For more information, please contact:[facility] [place] [address]
--- OUTSIDE RECORDS SUMMARY | ~2018-07-08 | XMS | Encounter Summary ---
Demographics + + + | Address | [address] | | | [place] [address] | + + + | Home Phone | | + + + | Preferred Language | Unknown | + + + | Marital Status | Single | + + + | Episcopalian Affiliation | Unknown | + + + [...] [address] | | | | | [place], [place] | | | | | [address] | | + + + + + Care Team Providers + +------+ + | Care Terrazzo Mechanic Name | Role | Phone | [...]
--- OUTSIDE RECORDS SUMMARY | ~2018-07-08 | XMS | Encounter Summary ---
Demographics + + + | Address | [address] | | | [place] [address] | + + + | Home Phone | | + + + | Preferred Language | Unknown | + + + | Marital Status | Single | + + + | Sabianist Affiliation | Unknown | + + + | Race | White | + + + | Ethnic Group | Not or | + + + Author + + + | Author | [facility] | + + + | Organization | [facility] | + + + | Address | Unknown | + + + | Phone | Unavailable | + + + Support + + + + + | Name | Relationship | Address | Phone | + + + + + | Lolis Rodriguez | [address] | [address] | | | | | [address] | | | | | [address] | | + + + + + Care Team Providers + +------+ + | Care Turn Out Worker Name | Role | Phone | + +------+ + | James Boss MD | PCP | Unavailable | + +------+ + Encounter Details +--------+ + + + + | Date | Type | Department | Care Team | Description | +--------+ + + + + | 02/08/ | Office | [facility] | Note, Internal Med | Progress Note | | 2001 | Visit-Trans | MEDICINE | Clinic | [...] as of this encounter Progress Notes Interface, Manufacturing Accountant In - 09/20/2005 1:11 AM PDTCLINIC DATE: 02/08/2002 INTERNAL MEDICINE CLINIC This is a conference/coordination of care visit consisting of 30 minutes of [id number] time with the patient. CHIEF COMPLAINT: "I am having hard time staying awake." HISTORY OF PRESENT ILLNESS: The patient relates a history of chronic fatigue, decreased memory, and right upper quadrant pain. Her right upper quadrant pain has been evaluated in the past by Gastroenterology here at [facility]. Additionally, more recently, she has developed a leg injury that has resulted in low back pain and right leg pain. She is currently being treated by Dr. Roberts in [place] who has scheduled her for an MRI tomorrow. PAST MEDICAL HISTORY: Asthma in 1980; SVT in 1980; bipolar disorder in 1998; irritable bowel syndrome in 1989, status post negative flexible sigmoidoscopy; hiatal hernia in 1998; peptic ulcer disease and appendectomy in 1978; tonsillectomy and hernia repair in 1980; status post cholecystectomy in 1994; in 1997; total hysterectomy in 1990 for uterine and ovarian tumors; migraine headache; back pain; and tobacco use since 1976. CURRENT MEDICATIONS: [place] 300 mg 5 times a day, Paxil 20 mg per day, Accolate 20 mg b.i.d., sucralfate 1 g q.i.d., Protonix 40 mg a day, Ambien 5 mg q.h.s., indomethacin 50 mg b.i.d., Mobic 15 mg q.d., Vicodin up to 8 per day p.r.n., oxygen 3 L, Evista 60 mg q.d., promethazine 25-50 mg p.r.n., diazepam 5 mg p.r.n., Fioricet p.r.n., albuterol inhaler, Atrovent inhaler, Serevent inhaler, Azmacort inhaler, and Advair inhaler. ALLERGIES: CIPRO WHICH CAUSES THROAT ITCHING; BENADRYL WHICH CAUSED DYSPNEA AND RASH; PENICILLIN WHICH CAUSES DYSPNEA AND RASH; COMPAZINE WHICH CAUSES A RASH; WHICH CAUSES HEADACHE, TONGUE SWELLING AND A RASH; ULTRAM CAUSES RASH AND DYSPNEA; VOLTAREN CAUSES RASH AND DYSPNEA; SULFA CAUSES RASH AND DYSPNEA; AND EPINEPHRINE. FAMILY HISTORY: Father at a motor vehicle accident. Mother at age 36 of thrombophlebitis, brother has TB, another brother with cancer in the back of unknown etiology and supraventricular tachycardia. The patient has 3 children, one with ADHD, another with heart problem, and the third with asthma and possibly bipolar disorder. SOCIAL HISTORY: The patient is on disability secondary to bipolar disorder and a shoulder injury plus left knee injury. Alcohol denies, tobacco one half pack per day, drugs never. REVIEW OF SYSTEMS: A full review of systems is on the chart. PHYSICAL EXAMINATION VITAL SIGNS: Blood pressure 98/64, heart rate 84, respiratory rate 20, peak flow best at 310. The remainder of the physical examination is deferred. ASSESSMENT AND PLAN 1. Chronic fatigue: CBC and TSH sent. This could relate to her bipolar disorder or another metabolic problem. 2. Bipolar disorder: Check lithium level today and TSH. 3. Low back pain: Being treated by Dr. Roberts. 4. Continuity of care: The patient signed a form to request her records from Dr. Dougie Gaviria of [place] to be transferred here to [facility]. The patient will return to the clinic at the next available appointment for a complete physical examination. James Boss M.D., M.P.H. [facility] / HS [id number] / [id number] / [id number] / Tdocumented in this encounter Plan of Treatment Not on filedocumented as of this encounter Visit Diagnoses Not on filedocumented in this encounter
--- OUTSIDE RECORDS SUMMARY | ~2018-07-08 | XMS | Encounter Summary ---
Demographics + + + | Address | [address] | | | [place] [address] | + + + | Home Phone | | + + + | Preferred Language | Unknown | + + + | Marital Status | Single | + + + | Mormon Affiliation | Unknown | + + + | Race | White | + + + | Ethnic Group | Not or | + + + Author + + + | Author | [facility] | + + + | Organization | [facility] | + + + | Address | Unknown | + + + | Phone | Unavailable | + + + Support + + + + + | Name | Relationship | Address | Phone | + + + + + | Lolis Rodriguez | [address] | [address] | | | | | [address] | | | | | [address] | | + + + + + Care Team Providers + +------+ + | Care Priming Mixture Carrier Name | Role | Phone | + [...] as of this encounter Progress Notes Interface, Yard Manager In - 08/24/2005 3:03 AM PDTCLINIC DATE: [...] in 6 weeks. James Boss M.D., M.P.H. [facility] / [id number] / [id number] / [id number] / Tdocumented in this encounter Plan of Treatment Not on filedocumented as of this encounter Visit Diagnoses Not on filedocumented in this encounter
--- OUTSIDE RECORDS SUMMARY | ~2018-07-08 | XMS | Encounter Summary ---
Demographics + + + | Address | [address] | | | [place] [address] | + + + | Home Phone | | + + + | Preferred Language | Unknown | + + + | Marital Status | Single | + + + | Synagogue Affiliation | Unknown | + + + | Race | White | + + + | Ethnic Group | Not or | + + + Author + + + | Author | [facility] | + + + | Organization | [facility] | + + + | Address | Unknown | + + + | Phone | Unavailable | + + + Support + + + + + | Name | Relationship | Address | Phone | + + + + + | Lolis Rodriguez | SCOTTY | [address] | | | | | [address] | | | | | [address] | | + + + + + Care Team Providers + +------+ + | Care Insulation Extruder Operator Name | Role | Phone | + +------+ + | James Horne MD | PCP | | + +------+ + Encounter Details +--------+ + + + + | Date | Type | Department | Care Team | Description | +--------+ + + + + | 07/11/ | Hospital | Registration HOV | | | | 2016 | Encounter | [address] | | | | | | [facility] | | | | | | [place], [place] | | | | | | [address] | | | +--------+ + + + [...] + + +---------+ + + | albuterol 0.083% | Inhale as needed. | | 0 | 07/30/19 | | | 2.5 mg /3 mL (0.083 | | | | 16 | | | %) inhalation | | | | | | | solution for | | | | | | | nebulization | | | | | | + + + +---------+ + + | albuterol 90 | as needed. | | 0 | 06/04/19 | | | mcg/actuation | | | | 16 | | | inhalation HFA | | | | | | | aerosol inhaler | | | | | | + + + +---------+ + + | aspirin EC 81 mg | Take 81 mg by mouth | | 0 | 03/04/19 | | | oral tablet,delayed | once daily. | | | 15 | | | release (DR/EC) | | | | | | + + + +---------+ + + | atorvastatin 40 mg | Take 40 mg by mouth | | 0 | 05/01/19 | | | oral tablet | once daily. | | | 16 | | + + + +---------+ + + | dicyclomine 20 mg | 20 mg once daily. | | 0 | 08/08/19 | | | oral tablet | | | | 16 | | + + + +---------+ + + | erythromycin 5 | two times daily. | | 0 | 10/14/19 | | | mg/gram (0.5 %) | | | | 16 | | | ophthalmic ointment | | | | | | + + + +---------+ + + | | 2 puffs two times | | 0 | 06/27/19 | | | fluticasone-salmeter | daily. | | | 17 | | | ol 250-50 mcg/dose | | | | | | | inhalation blister | | | | | | | with device | | | | | | + + + +---------+ + + | ibuprofen 800 mg | 800 mg three times | | 0 | 05/01/19 | | | oral tablet | daily as needed. | | | 16 | | + + + +---------+ + + | insulin detemir | Inject 74 Units | | 0 | 05/01/19 | | | 100 unit/mL (3 mL) | under the skin | | | 16 | | | subcutaneous insulin | (SUBC) once daily. | | | | | | pen | | | | | | + + + +---------+ + + | insulin lispro | three times daily as | | 0 | 06/27/19 | | | (Human) 100 unit/mL | needed. | | | 17 | | | subcutaneous insulin | | | | | | | pen | | | | | | + + + +---------+ + + | insulin needles, | Use prn | | 0 | 12/16/19 | | | Disposable, (BD | | | | 15 | | | ULTRA-FINE ROGERIO PEN | | | | | | | NEEDLE 4 MM X 32 G) | | | | | | | 32 gauge x 5/32" | | | | | | | ndle | | | | | | + + + +---------+ + + | Insulin | by Does not apply | | 0 | 06/28/19 | | | Syringe-Needle U-100 | route. | | | 15 | | | 1/2 mL 30 gauge x | | | | | | | 5/16 syringe | | | | | | + + + +---------+ + + | | Inhale as needed. | | 0 | 05/01/19 | | | ipratropium-albutero | | | | 16 | | | l 0.5 mg-3 mg(2.5 mg | | | | | | | base)/3 mL | | | | | | | inhalation solution | | | | | | | for nebulization | | | | | | + + + +---------+ + + | levothyroxine 75 | 75 mcg once daily. | | 0 | 06/27/19 | | | mcg oral tablet | | | | 17 | | + + + +---------+ + + | magnesium | Take by mouth as | | 0 | 03/04/19 | | | hydroxide 400 mg/5 | needed. | | | 15 | | | mL oral suspension | | | | | | + + + +---------+ + + | metFORMIN SR 500 | 2,000 mg two times | | 0 | 10/24/19 | | | mg oral tablet | daily. | | | 16 | | | extended release 24 | | | | | | | hr | | | | | | + + + +---------+ + + | metoprolol | 25 mg two times | | 0 | 05/01/19 | | | succinate 25 mg oral | daily. | | | 16 | | | tablet extended | | | | | | | release 24 hr | | | | | | + + + +---------+ + + | mometasone 50 | Instill in nose as | | 0 | 05/01/19 | | | mcg/actuation nasal | needed. | | | 16 | | | spray,non-aerosol | | | | | | + + + +---------+ + + | | Instill in ear as | | 0 | 06/04/19 | | | cltstheu-rvkfgpibw-z | needed. | | | 16 | | | ydrocortisone | | | | | | | 3.5-10,000-1 | | | | | | | mg/mL-unit/mL-% otic | | | | | | | solution | | | | | | + + + +---------+ + + | nitroglycerin 0.4 | Place under tongue | | 0 | 02/03/20 | | | mg sublingual | as needed. | | | 14 | | | tablet, sublingual | | | | | | + + + +---------+ + + | pramipexole 0.25 | 3 tablets once daily | | 0 | 05/01/19 | | | mg oral tablet | at bedtime. | | | 16 | | + + + +---------+ + + | promethazine 50 mg | Take 50 mg by mouth | | 0 | 05/01/19 | | | oral tablet | as needed. | | | 16 | | + + + +---------+ + + | sertraline 100 mg | 200 mg once daily at | | 0 | 05/01/19 | | | oral tablet | bedtime. | | | 16 | | + + + +---------+ + + | tiotropium 18 mcg | Inhale once daily as | | 0 | 05/01/19 | | | inhalation capsule, | needed. | | | 16 | | | w/inhalation device | | | | | | + + + +---------+ + + documented as of this encounter Plan of Treatment Not on filedocumented as of this encounter Visit Diagnoses Not on filedocumented in this encounter
--- OUTSIDE RECORDS SUMMARY | ~2018-07-08 | XMS | Encounter Summary ---
Demographics + + + | Address | [address] | | | [place] [address] | + + + | Home Phone | | + + + | Preferred Language | Unknown | + + + | Marital Status | Single | + + + | Pentecostal Affiliation | Unknown | + + + | Race | White | + + + | Ethnic Group | Not or | + + + Author + + + | Author | [facility] | + + + | Organization | [facility] | + + + | Address | Unknown | + + + | Phone | Unavailable | + + + Support + + + + + | Name | Relationship | Address | Phone | + + + + + | Lolis Rodriguez | SC[address] | [address] | | | | | [address] | | | | | [address] | | + + + + + Care Team Providers + +------+ + | Care Granite Cutter Name | Role | Phone | + +------+ + | Mahendra Cash MD | PCP | | + +------+ + Encounter Details +--------+ + + + + | Date | Type | Department | Care Team | Description | +--------+ + + + + | 12/08/ | Document-Sc | Health Information | Unknown . | | | 2014 | anned | Services [address] | | | | | | [address] | | | | | | Road Mailcode: | | | | | | [address] | | | | | | [facility] | | | | | | [place], [place] | | | | | | [address] | | | | | | [phone] | | | +--------+ + + + [...]
--- OUTSIDE RECORDS SUMMARY | ~2018-07-08 | XMS | Encounter Summary ---
Demographics + + + | Address | [address] | | | [place] [address] | + + + | Home Phone | | + + + | Preferred Language | Unknown | + + + | Marital Status | Single | + + + | Amish Affiliation | Unknown | + + + | Race | White | + + + | Ethnic Group | Not or | + + + Author + + + | Author | [facility] | + + + | Organization | [facility] | + + + | Address | Unknown | + + + | Phone | Unavailable | + + + Support + + + + + | Name | Relationship | Address | Phone | + + + + + | Lolis Rodriguez | SC[address]TY | [address] | | | | | [address] | | | | | [address] | | + + + + + Care Team Providers + +------+ + | Care Track Manager Name | Role | Phone | [...] | | | postprocedur | LEGACY | [place] | | | | | al | MEDICAL | [address] | | | | | status(V45.8 | GROUP | [address] | | | | | 9) | [place] | [place], [place] | | | | | Procedures | [address] | [address] | | | | | [place] | [address] | Phone: | | | | | LABS | [address] | [phone] | | | | | | [place], [place] | Fax: | | | | | | [address] | [phone] | | | | | | Phone: | | | | | | | [phone] | | | | | | | Fax: | | | | | | | [phone] | | +--------+--------+ + + + + Encounter Details +--------+ + + + + | Date | Type | Department | Care Team | Description | +--------+ + + + + | 07/21/ | [facility] | [facility] | Sree Abdul Nurse | [facility] | | 2013 | l Support | [facility] [place] | [address] | ([facility]) | | | Staff | [address] | [address] [place], [place] | | | | | [address] [place], [place] | [address] | | | | | [address] | [phone] | | | | | [phone] | | | | | | | Sree [address]ain Ma | | | | | | Schedule [place], | | | | | | [place] [address] | | +--------+ + + + + [...]
--- OUTSIDE RECORDS SUMMARY | ~2018-07-08 | XMS | Encounter Summary ---
Demographics + + + | Address | [address] | | | [place] [address] | + + + | Home Phone | | + + + | Preferred Language | Unknown | + + + | Marital Status | Single | + + + | Faith Affiliation | Unknown | + + + | Race | White | + + + | Ethnic Group | Not or | + + + Author + + + | Author | [facility] | + + + | Organization | [facility] | + + + | Address | Unknown | + + + | Phone | Unavailable | + + + Support + + + + + | Name | Relationship | Address | Phone | + + + + + | Lolis Rodriguez | [address] | [address] | | | | | [address] | | | | | [address] | | + + + + + Care Team Providers + +------+ + | Care Agricultural Engineering Technologist Name | Role | Phone [...] Cash, | | | 2013 | | [facility] | [facility] | | | | | [address] | [address] [place] [id number] | | | | | [address] [place] | [address] | | | | | [address] | [address] [place] | | | | | [phone] | [address] | | | | | | | [...]
--- OUTSIDE RECORDS SUMMARY | ~2018-07-08 | XMS | Encounter Summary ---
Demographics + + + | Address | [address] | | | [place] [address] | + + + | Home Phone [...] Author + + + | Author | [facility] | + + + | Organization | [facility] | + + + | Address | Unknown | + + + | Phone | Unavailable | + + + Support + + + + + | Name | Relationship | Address | Phone | + + + + + | Lolis Rodriguez | SC[address] | [address] | | | | | [address] | | | | | [address] | | + + + + + Care Team Providers + +------+ + | Care Calender Operator Name | Role | Phone | + +------+ + | James Boss MD | PCP | Unavailable | + +------+ + Encounter Details +--------+ + + + + | Date | Type | Department | Care Team | Description | +--------+ + + + + | 10/15/ | Results | Registration [address] | | | | 1995 | Only | [address] | | | | | | [facility] Mailcode: | | | | | | [address] [place], [place] | | | | | | [address] | | | | | | [phone] | | | +--------+ + + + [...] | + + + + + | [facility] | [address] | [place] [address] | | | PATHOLOGY | [address] [...] | + + + + + | [facility] | [address] | [place] [address] | | | PATHOLOGY | [address] [...] | + + + + + | [facility] | [address] | [place] [address] | | | PATHOLOGY | [address] [...] | + + + + + | [facility] | [address] | [place] [address] | | | PATHOLOGY | [address] [...] | + + + + + | [facility] | [address] | [place] [address] | | | PATHOLOGY | [address] [...] | + + + + + | [facility] | [address] | [place] [address] | | | PATHOLOGY | [address] [...] | + + + + + | [facility] | [address] | [place] [address] | | | PATHOLOGY | [address] [...] | + + + + + | [facility] | [address] | [place] [address] | | | PATHOLOGY | [address] | | | + + + + + documented in this encounter Visit Diagnoses Not on filedocumented in this encounter"
--- OUTSIDE RECORDS SUMMARY | ~2018-07-08 | XMS | Encounter Summary ---
Demographics + + + | Address | [address] | | | [place] [address] | + + + | Home Phone [...] [address] | | | | | [address] | | | | | [address] | | + + + + + Care Team Providers + +------+ + | Care Cell Manager Name | Role | Phone | [...] as of this encounter Progress Notes Interface, Military Science Teacher In - 08/24/2005 3:03 AM PDTCLINIC DATE: [...] in 6 weeks. James Boss M.D., M.P.[facility] / [id number] / [id number] / [id number] / Tdocumented in this encounter Plan of Treatment Not on filedocumented as of this encounter Visit Diagnoses Not on filedocumented in this encounter
--- OUTSIDE RECORDS SUMMARY | ~2018-07-08 | XMS | Encounter Summary ---
Demographics + + + | Address | [address] | | | [place] [address] | + + + | Home Phone [...] Author + + + | Author | [facility] | + + + | Organization | [facility] | + + + | Address | Unknown | + + + | Phone | Unavailable | + + + Support + + + + + | Name | Relationship | Address | Phone | + + + + + | Lolis Rodriguez | SC[address] | [address] | | | | | [address] | | | | | [address] | | + + + + + Care Team Providers + +------+ + | Care Demi Chef Name | Role | Phone | + [...] [address] | | | | | | [facility] Mailcode: | | | | | | [address] [place], [place] | | | | | | [address] | | | | | | [phone] | | | +--------+ + + + [...] | + + + + + | [facility] | [address] | [place] [address] | | | PATHOLOGY | [address] [...] | + + + + + | [facility] | [address] | [place] [address] | | | PATHOLOGY | [address] [...] | + + + + + | [facility] | [address] | [place] [address] | | | PATHOLOGY | [address] [...] | + + + + + | [facility] | [address] | [place] [address] | | | PATHOLOGY | [address] [...] | + + + + + | [facility] | [address] | [place] [address] | | | PATHOLOGY | [address] [...] | + + + + + | [facility] | [address] | [place] [address] | | | PATHOLOGY | [address] [...] | + + + + + | [facility] | [address] | [place] [address] | | | PATHOLOGY | [address] [...] | + + + + + | [facility] | [address] | [place] [address] | | | PATHOLOGY | [address] | | | + + + + + documented in this encounter Visit Diagnoses Not on filedocumented in this encounter"
--- OUTSIDE RECORDS SUMMARY | ~2018-07-08 | XMS | Encounter Summary ---
Demographics + + + | Address | [address] | | | [place] [address] | + + + | Home Phone [...] + | Lolis Rodriguez | ECON | [address] | | | | | [address], [place] | | | | | [address] | | + + + + + Care Team Providers + +------+ + | Care Remote Operations Producer Name | Role | Phone | + +------+ + | James Boss MD | PCP | Unavailable | + +------+ + Encounter Details +--------+ + + + + | Date | Type | Department | Care Team | Description | +--------+ + + + + | 06/11/ | Transcribed | | Dictation, Other | Transcribed | | 2000 | | | | | +--------+ + [...] as of this encounter Progress Notes Interface, Professor Of Medicine In - 01/14/2006 5:[address] [address] or June 12, 1999 Marlon Freeman D.O. [facility] [address] [place] [address] RE: LAURY MIDDLETON MR #: [id number] Dear Dr. Freeman: I had the pleasure of meeting your patient, Laury Middleton, in my Hepatology Clinic this morning. As you recall, she is a pleasant 38-year-old woman who has been found to have persistently abnormal liver enzymes. On an ultrasound, the patient has hepatomegaly. She states that her history began back in 1989 when she developed the progressive onset of abdominal discomfort, predominantly in the right upper quadrant but accompanied by shooting pains which generally occur on the left. She was subsequently found to have abnormal liver enzymes, and in 1994, the patient underwent a cholecystectomy when she was found on ultrasound to have stones in her gallbladder. She stated, however, that the surgeon told her that her liver was enlarged, but no intraoperative biopsy was performed. She denies any prior history of jaundice, and no known history of hepatitis. She does note that she has gained a significant amount of weight but has never drank alcohol, never used intravenous drugs, and has no family history of liver disease. At the present time, the patient describes multiple abdominal discomforts, the first of which is in her right upper quadrant, is vague, mildly severe, and is not associated with eating, urinating, defecation, or activity. She believes that this is a discomfort that is related to her liver. However, it was also what she complained of prior to her gallbladder surgery. Subsequent to the surgery, she has also had a burning sensation in her right upper quadrant. She has had epigastric and chest discomfort which is relived somewhat with Prilosec, and she has upper GI evidence of a hiatal hernia. She also complains of left upper quadrant pain and bloating which will shoot across her upper abdomen to the right. This does appear to be relived by the passage of flatus and stool. Her normal stool pattern is up to eight bowel movements a day, never bloody, and generally not occurring at night and not associated with meals. She has no fevers and no chills. She has nausea and occasional vomiting. No hematemesis. She states that her other significant problem is profound fatigue which significantly hinders her ability of function. PAST MEDICAL HISTORY 1. Asthma diagnosed in 1980. 2. Supraventricular tachycardia diagnosed in 1980. 3. Bipolar disorder diagnosed in 1998, currently on lithium. 4. Irritable bowel syndrome diagnosed in 1989. 4.1. ACBE, upper GI, and flexible sigmoidoscopy all negative. 5. Hiatal hernia diagnosed in 1998. 6. History of peptic ulcer disease. PAST SURGICAL HISTORY 1. Appendectomy 1978. 2. Tonsillectomy. 3. Hernia repair in 1980. 4. Three knee surgeries on the left. 5. Status post cholecystectomy in 1994. 6. Cesarian section 1987. 7. Hysterectomy in 1990. 8. Status post three cardiac arteriograms. MEDICATIONS 1. Prilosec 2. Remer. 3. Accolate. 4. Evista. 4. Promethazine. 5. Inhalers. 6. Hydroxyzine p.r.n. DRUG ALLERGIES: BENADRYL, PENICILLIN, COMPAZINE, , ULTRAM, VOLTAREN, SULFA, EPINEPHRINE, AND CIPROFLOXACIN. SOCIAL HISTORY: Drug and alcohol use as above. Tattoos and blood transfusions were denied. The patient is currently involved in the legal system as her 17-year-old son has been accused of murdering a young girl next door. FAMILY HISTORY: Family history is significant for two uncles, a grandfather, and mother all of whom have liver disease of unknown etiology. PHYSICAL EXAMINATION: She is alert, oriented, and in no acute distress. She is morbidly obese. Her weight is 226 pounds, temperature is 37 degrees, blood pressure 130/86, and heart rate 64. HEENT examination was unremarkable. Her lungs demonstrate diffuse wheezing most prominent at the bases. Heart revealed regular rate and rhythm. I was unable to appreciate a murmur or rub. Her abdomen was soft. Her right rib margin with tender. Her right upper quadrant was mildly tender. No rebound or guarding. She had some mild tenderness in the left upper quadrant. No palpable spleen tip or liver edge. No intraabdominal masses. No obvious ascites. She had abdominal wall striae. Her extremities were without edema. Neurologically, she was alert. Asterixis was negative. LABORATORIES: Laboratories dated May 06, 1999, AST 43, ALT 56, DDT 242, cholesterol 262, triglycerides 279, albumin 4.1, and total bilirubin 0.5. ASSESSMENT: I think the most likely etiology of this woman's chronic hepatitis is fatty infiltration of her liver. You have ruled out viral hepatitis, and she would be at risk for hemachromatosis, especially given her positive family history. With her gender and age, you must consider autoimmune processes, and as she was cholestatic, perhaps primary sclerosing cholangitis. I do not have the results of her ultrasound, but given her hepatomegaly, I think fatty infiltration remains the most likely etiology. In terms of her abdominal pain, I think that it is likely related to distention of the liver capsule; however, the episodic nature of it makes me wonder whether she does not have a retained stone in her biliary tree. Again, ultrasound examination of her common bile duct would at least give us some clue. Could this be sphincter of Oddi dysfunction? She states she has a history of ulcer disease. She has a hiatal hernia and this possibility of retained stone leads me to wonder whether she would benefit from an ERCP. At this point, I am going to rely upon the ultrasound to demonstrate fat in her liver. Clinically she does not appear to be cirrhotic and would be at low risk for it. Therefore, I am not anxious to pursue percutaneous liver biopsy. It would have to be done under ultrasound guidance given her body habitus. If indeed this is fatty liver, then her being on Evista may allow for some improvement in her serum lipids, but given that she has gained 60 pounds over the past year, I think she would have to loose a significant amount of weight before you would see improvement in her liver enzymes. PLAN: I took the liberty of drawing autoimmune markers as well as an antimitochondrial antibody to rule out PBC. I will attempt to obtain her ultrasound reports from [facility]. I am still entertaining the possibility of performing an ERCP to rule out retained stone. I gave her samples of Alosetron in an effort to reduce her irritable bowel symptoms and perhaps reduce the number of stools she has on a daily basis. She and I will speak again in approximately one week to review the results of her labs and of our Alosetron therapeutic trial. Thank you very much for allowing me to participate in Ms. Middleton's care. Please do not hesitate to contact me if I can provide you with additional information. Sincerely, Naun Carias M.D. HERI / LUIS EDUARDO [id number] / [id number] / [id number] / [id number] signed by Interface, Professor Of Medicine In at 01/14/2006 5:11 AM PSTdocume nted in this encounter Plan of Treatment Not on filedocumented as of this encounter Visit Diagnoses Not on filedocumented in this encounter"
--- OUTSIDE RECORDS SUMMARY | ~2018-07-08 | XMS | Encounter Summary ---
Demographics + + + | Address | [address] | | | [place] [address] | + + + | Home Phone [...] [address] | | | | | [place], [place] | | | | | [address] | | + + + + + Care Team Providers + +------+ + | Care Phd Intern Name | Role | Phone | + +------+ + | James Boss MD | PCP | Unavailable | + +------+ + Encounter Details +--------+ + + + + | Date | Type | Department | Care Team | Description | +--------+ + + + + | 06/11/ | Results | | Naun Carias | [...] | COAG MASTER PANEL | Routin | 06/12/1999 | | Results for this | | | e | 11:17 AM | | procedure are in the | | | | PDT | | results section. | + +--------+ + + + | INR | Routin | 06/12/1999 | | Results for this | | | e | 11:17 AM | | procedure are in the | | | | PDT | | results section. | + +--------+ + + + | ANTI SMOOTH MUSCLE | Routin | 06/12/1999 | | Results for this | | AB, SERUM | e | 11:17 AM | | procedure are in the | | | | PDT | | results section. | + +--------+ + + + | ANTI MITOCHONDRIAL | Routin | 06/12/1999 | | Results for this | | AB, SERUM | e | 11:17 AM | | procedure are in the | | | | PDT | | results section. | + +--------+ + + + | ANTI NUCLEAR AB | Routin | 06/12/1999 | | Results for this | | SCREEN, SERUM | e | 11:17 AM | | procedure are in the | | | | PDT | | results section. | + +--------+ + + + | FERRITIN | Routin | 06/12/1999 | | Results for this | | | e | 11:17 AM | | procedure are in the | | | | PDT | | results section. | + +--------+ + + + | FREE T4 | Routin | 06/12/1999 | | Results for this | | | e | 11:17 AM | | procedure are in the | | | | PDT | | results section. | + +--------+ + + + | TSH | Routin | 06/12/1999 | | Results for this | | | e | 11:17 AM | | procedure are in the | | | | PDT | | results section. | + +--------+ + + + | IRON AND TIBC, SERUM | Routin | 06/12/1999 | | Results for this | | | e | 11:17 AM | | procedure are in the | | | | PDT | | results section. | + +--------+ + + + documented in this encounter Results ANTI NUCLEAR AB SCREEN (06/12/1999 11:17 AM PDT) + + + + + + | Component | Value | Ref Range | Performed | Pathologist | | | | | At | Signature | + + + + + + | KARLOS SCREEN | Negative | Negative | | | | ON HEP | | | | | | 2,SERUM | | | | | + + + + + + + + | Specimen | + + | | + + + + + + + | Performing | Address | City/State/Zipcode | Phone Number | | Organization | | | | + + + + + | [facility] | [address] | [place] [address] | | | LABORATORY | | | | + + + + + ANTI MITOCHONDRIAL AB (06/12/1999 11:17 AM PDT) + + + + + + | Component | Value | Ref Range | Performed | Pathologist | | | | | At | Signature | + + + + + + | ANTI-MITOCH | Neg (1:20 dil) | Negative | | | | ONDRIAL, | | | | | | SERUM | | | | | + + + + + + + + | Specimen | + + | | + + + + + + + | Performing | Address | City/State/Zipcode | Phone Number | | Organization | | | | + + + + + | [facility] | [address] | [place] [address] | | | LABORATORY | | | | + + + + + FREE T4, SERUM (06/12/1999 11:17 AM PDT) + +-------+ + + + | Component | Value | Ref Range | Performed | Pathologist | | | | | At | Signature | + +-------+ + + + | FREE T4, | 0.7 | 0.7 - 1.8 ng/dL | | | | SERUM | | | | | + +-------+ + + + + + | Specimen | + + | | + + + + + + + | Performing | Address | City/State/Zipcode | Phone Number | | Organization | | | | + + + + + | [facility] | [address] | [place] [address] | | | LABORATORY | | | | + + + + + FERRITIN (06/12/1999 11:17 AM PDT) + +-------+ + + + | Component | Value | Ref Range | Performed | Pathologist | | | | | At | Signature | + +-------+ + + + | FERRITIN | 72 | 12 - 250 ng/mL | | | + +-------+ + + + + + | Specimen | + + | | + + + + + | Narrative | Performed At | + + + | New Ferritin Ref Ranges eff. 02/25/99 | | + + + + + + + + | Performing | Address | City/State/Zipcode | Phone Number | | Organization | | | | + + + + + | [facility] | [address] | [place] [address] | | | LABORATORY | | | | + + + + + TSH-THYROID STIM HORMONE (06/12/1999 11:17 AM PDT) + + + + + + | Component | Value | Ref Range | Performed | Pathologist | | | | | At | Signature | + + + + + + | TSH | 5.70 (H) | 0.23 - 4.00 | | | | | | uIU/ml | | | + + + + + + + + | Specimen | + + | | + + + + + | Narrative | Performed At | + + + | TSH value falls | | | between the upper end of th | | | normal range and | | | the hypothyroid range. | | + + + + + + + + | Performing | Address | City/State/Zipcode | Phone Number | | Organization | | | | + + + + + | [facility] | [address] | [place] [address] | | | LABORATORY | | | | + + + + + IRON SERUM AND TIBC (06/12/1999 11:17 AM PDT) + +--------+ + + + | Component | Value | Ref Range | Performed | Pathologist | | | | | At | Signature | + +--------+ + + + | IRON SERUM | 66 | 40 - 150 ug/dL | | | + +--------+ + + + | IRON BIND | 379 | 225 - 410 ug/dL | | | | CAP SERUM | | | | | + +--------+ + + + | % | 17 (L) | 20 - 50 % | | | | SATURATION | | | | | | TRANSFERRIN | | | | | | , SERUM | | | | | + +--------+ + + + + + | Specimen | + + | | + + + + + + + | Performing | Address | City/State/Zipcode | Phone Number | | Organization | | | | + + + + + | [facility] | [address] | [place] [address] | | | LABORATORY | | | | + + + + + ANTI SMOOTH MUSCLE AB (06/12/1999 11:17 AM PDT) + + + + + + | Component | Value | Ref Range | Performed | Pathologist | | | | | At | Signature | + + + + + + | ANTI-SMOOTH | Neg (1:20 dil) | Negative | | | | MUSCLE | | | | | + + + + + + + + | Specimen | + + | | + + + + + + + | Performing | Address | City/State/Zipcode | Phone Number | | Organization | | | | + + + + + | [facility] | [address] | [place] [address] | | | LABORATORY | | | | + + + + + PROTHROMBIN TIME (06/12/1999 11:17 AM PDT) + + + + + + | Component | Value | Ref Range | Performed | Pathologist | | | | | At | Signature | + + + + + + | INR | 0.92 (L)Comment: | 0.98 - 1.08 INR | [facility] | | | | PT INR | | DEPARTMENT | | | | Therapeutic ranges for | | OF | | | | full | | PATHOLOGY | | | | anticoagulation: | | | | | | INR for | | | | | | Venous | | | | | | Thromboembolism | | | | | | | | | | | | (2.0-3.0)INR | | | | | | INR for most | | | | | | patients with mech. | | | | | | valves (2.5-3.5)I | | | | | | NR | | | | + + + + + + + + | Specimen | + + | | + + + + + + + | Performing | Address | City/State/Zipcode | Phone Number | | Organization | | | | + + + + + | [facility] | [address] | [place] [address] | | | PATHOLOGY | [address] | | | + + + + + | [facility] | [address] | [place] [address] | | | PATHOLOGY | [address] | | | + + + + + BRANDIN MASTER PANEL (06/12/1999 11:17 AM PDT) + + + + + + | Component | Value | Ref Range | Performed | Pathologist | | | | | At | Signature | + + + + + + | INR | 0.92 (L)Comment: | 0.98 - 1.08 INR | [facility] | | | | PT INR | | DEPARTMENT | | | | Therapeutic ranges for | | OF | | | | full | | PATHOLOGY | | | | anticoagulation: | | | | | | INR for | | | | | | Venous | | | | | | Thromboembolism | | | | | | | | | | | | (2.0-3.0)INR | | | | | | INR for most | | | | | | patients with mech. | | | | | | valves (2.5-3.5)I | | | | | | NR | | | | + + + + + + + + | Specimen | + + | | + + + + + + + | Performing | Address | City/State/Zipcode | Phone Number | | Organization | | | | + + + + + | [facility] | [address] | [place] [address] | | | PATHOLOGY | [address] | | | + + + + + | [facility] | [address] | [place] [address] | | | PATHOLOGY | [address] | | | + + + + + documented in this encounter Visit Diagnoses Not on filedocumented in this encounter"
--- OUTSIDE RECORDS SUMMARY | ~2018-07-08 | XMS | Encounter Summary ---
Demographics + + + | Address | [address] | | | [place] [address] | + + + | Home Phone [...] + + + | Author | [facility] | + + + | Organization | [facility] | + + + | Address | Unknown | + + + | Phone | Unavailable | + + + Support + + + + + | Name | Relationship | Address | Phone | + + + + + | Lolis Rodriguez | SC[place] | [address] | | | | | [place] | | | | | [address] | | + + + + + Care Team Providers + +------+ + | Care Emergency Dispatcher Name | Role | Phone | + +------+ + | No Pcp Per Patient | PCP | Unavailable | + +------+ + Encounter Details +--------+ + + + + | Date | Type | Department | Care Team | Description | +--------+ + + + + | 08/05/ | Hospital | Registration DEE DEE | | | | 2013 | Encounter | [address] | | | | | | [facility] | | | | | | [place], [place] | | | | | | [address] | | | +--------+ + + + [...]
--- OUTSIDE RECORDS SUMMARY | ~2018-07-08 | XMS | Encounter Summary ---
Demographics + + + | Address | [address] | | | [place] [address] | + + + | Home Phone [...] + + + | Author | [facility] | + + + | Organization | [facility] | + + + | Address | Unknown | + + + | Phone | Unavailable | + + + Support + + + + + | Name | Relationship | Address | Phone | + + + + + | Lolis Rodriguez | [place] | [address] | | | | | [place] | | | | | [address] | | + + + + + Care Team Providers + +------+ + | Care Supervisor Grading Name | Role | Phone | + [...] Care | | 2015 | Collaborati | [place] [facility] | MD CLARISA CALLES | | | | ve Order | [address] | GROUP [place] [address] | | | | | [address] [place], [place] | [address] | | | | | [address] | [address] [place], [place] | | | | | [phone] | [address] | | | | | | | [...]
--- OUTSIDE RECORDS SUMMARY | ~2018-07-08 | XMS | Encounter Summary ---
Demographics + + + | Address | [address] | | | [place] [address] | + + + | Home Phone | | + + + | Preferred Language | Unknown | + + + | Marital Status | Single | + + + | Sikh Affiliation | Unknown | + + + | Race | White | + + + | Ethnic Group | Not or | + + + Author + + + | Author | [facility] | + + + | Organization | [facility] | + + + | Address | Unknown | + + + | Phone | Unavailable | + + + Support + + + + + | Name | Relationship | Address | Phone | + + + + + | Lolis Rodriguez | [place] | [address] | | | | | [place] | | | | | [address] | | + + + + + Care Team Providers + +------+ + | Care Microstrategy Reports Developer Name | Role | Phone | + +------+ + | Mahendra Cash MD | PCP | | + +------+ + Encounter Details +--------+ + + + + | Date | Type | Department | Care Team | Description | +--------+ + + + + | 09/15/ | Document-Sc | UNKNOWN DEPARTMENT | Unknown . | | | 2013 | anned | [address] | | | | | | [facility] | | | | | | [place], [place] | | | | | | [address] | | | +--------+ + + + [...]
--- OUTSIDE RECORDS SUMMARY | ~2018-07-08 | XMS | Encounter Summary ---
Demographics + + + | Address | [address] | | | [place] [address] | + + + | Home Phone [...] Author + + + | Author | [facility] | + + + | Organization | [facility] | + + + | Address | Unknown | + + + | Phone | Unavailable | + + + Support + + + + + | Name | Relationship | Address | Phone | + + + + + | Lolis Rodriguez | [place] | [address] | | | | | [address] | | | | | [address] | | + + + + + Care Team Providers + +------+ + | Care Well Point Pumping Supervisor Name | Role | Phone | [...] as of this encounter Progress Notes Interface, Infusion Rn In - 09/20/2005 1:11 AM PDTCLINIC DATE: 02/08/2002 [facility] This is a conference/coordination of care visit consisting of 30 minutes of xizl-xz-xaqo time with the patient. CHIEF COMPLAINT: "I am having hard time staying awake." HISTORY OF PRESENT ILLNESS: The patient relates a history of chronic fatigue, decreased memory, and right upper quadrant pain. Her right upper quadrant pain has been evaluated in the past by Gastroenterology here at [facility]. Additionally, more recently, she has developed a leg injury that has resulted in low back pain and right leg pain. She is currently being treated by Dr. Roberts in [place] who has scheduled her for an MRI [...] and tobacco use since 1976. CURRENT MEDICATIONS: Golden Triangle 300 mg 5 times a day, Paxil [...] her records from Dr. Dougie Gaviria of [place] to be transferred here to [facility]. The patient will return to the clinic at the next available appointment for a complete physical examination. James Boss M.D., M.P.H. JANAY / HS [id number] / [id number] / [id number] / Tdocumented in this encounter Plan of Treatment Not on filedocumented as of this encounter Visit Diagnoses Not on filedocumented in this encounter
--- OUTSIDE RECORDS SUMMARY | ~2018-07-08 | XMS | Encounter Summary ---
Demographics + + + | Address | [address] | | | [place] [address] | + + + | Home Phone [...] Author + + + | Author | [facility] | + + + | Organization | [facility] | + + + | Address | Unknown | + + + | Phone | Unavailable | + + + Support + + + + + | Name | Relationship | Address | Phone | + + + + + | Lolis Rodriguez | [place] | [address] | | | | | [address] | | | | | [address] | | + + + + + Care Team Providers + +------+ + | Care Commissary Assistant Name | Role | Phone | + [...] Care | | 2016 | Support | [facility] [place] | [address] | | | | Staff | [address] | [address] [place], [place] | | | | | [address] [place], [place] | [address] | | | | | [address] | [phone] | | | | | [phone] | | | | | | | Sree Jain Ma | | | | | | Schedule [place], | | | | | | [place] [address] | | +--------+ + + + + [...]
--- OUTSIDE RECORDS SUMMARY | ~2018-07-08 | XMS | Encounter Summary ---
Demographics + + + | Address | [address] | | | [place] [address] | + + + | Home Phone [...] Author + + + | Author | [facility] | + + + | Organization | [facility] | + + + | Address | Unknown | + + + | Phone | Unavailable | + + + Support + + + + + | Name | Relationship | Address | Phone | + + + + + | Lolis Rodriguez | SC[place] | [address] | | | | | [address] | | | | | [address] | | + + + + + Care Team Providers + +------+ + | Care Log Sorting Supervisor Name | Role | Phone | [...] Care | | 2014 | Collaborati | [place] [facility] [place] | MD [facility] | | | | ve Order | [address] | [address] [place] [address] | | | | | [address] [place], [place] | [address] | | | | | [address] | [address] [place], [place] | | | | | [phone] | [address] | | | | | | | [...]
--- OUTSIDE RECORDS SUMMARY | ~2018-07-08 | XMS | Encounter Summary ---
Demographics + + + | Address | [address] | | | [place] [address] | + + + | Home Phone [...] Author + + + | Author | [facility] | + + + | Organization | [facility] | + + + | Address | Unknown | + + + | Phone | Unavailable | + + + Support + + + + + | Name | Relationship | Address | Phone | + + + + + | Lolis Rodriguez | [place] | [address] | | | | | [address] | | | | | [address] | | + + + + + Care Team Providers + +------+ + | Care Auriculotherapist Name | Role | Phone | + [...] [address] | | | | | | [facility] | | | | | | [place], [place] | | | | | | [address] | | | +--------+ + + + [...] | 0 | 06/04/19 | | | [id number] | needed. | | | 16 | [...]
--- OUTSIDE RECORDS SUMMARY | ~2018-07-08 | XMS | Encounter Summary ---
Demographics + + + | Address | [address] | | | [place] [address] | + + + | Home Phone | | + + + | Preferred Language | Unknown | + + + | Marital Status | Single | + + + | Yazidism Affiliation | Unknown | + + + | Race | White | + + + | Ethnic Group | Not or | + + + Author + + + | Author | [facility] | + + + | Organization | [facility] | + + + | Address | Unknown | + + + | Phone | Unavailable | + + + Support + + + + + | Name | Relationship | Address | Phone | + + + + + | Lolis Rodriguez | SC[place] | [address] | | | | | [address] | | | | | [address] | | + + + + + Care Team Providers + +------+ + | Care Engineering Document Control Clerk Name | Role | Phone | + [...] Care | | 2016 | Support | [place] [facility] [place] | [address] | | | | Staff | [address] | [address] [place], [place] | | | | | [address] [place], [place] | [address] | | | | | [address] | [phone] | | | | | [phone] | | | | | | | Sree Jain Ma | | | | | | [address], | | | | | | [place] [address] | | +--------+ + + + + [...]
--- OUTSIDE RECORDS SUMMARY | ~2018-07-08 | XMS | Encounter Summary ---
Demographics + + + | Address | [address] | | | [place] [address] | + + + | Home Phone [...] + + + | Author | [facility] | + + + | Organization | [facility] | + + + | Address | Unknown | + + + | Phone | Unavailable | + + + Support + + + + + | Name | Relationship | Address | Phone | + + + + + | Lolis Rodriguez | SC[place]TY | [address] | | | | | [address] | | | | | [address] | | + + + + + Care Team Providers + +------+ + | Care Mixing Machine Tender Cork Rod Name | Role | Phone | + [...] | | | postprocedur | [facility] | [place] | | | | | al | MEDICAL | [address] | | | | | status(V45.8 | GROUP | [address] | | | | | 9) | [place] | [place], [place] | | | | | Procedures | [address] | [address] | | | | | [place] | [address] | Phone: | | | | | LABS | [address] | [phone] | | | | | | [place], [place] | Fax: | | | | | | [address] | [phone] | | | | | | Phone: | | | | | | | [phone] | | | | | | | Fax: | | | | | | | [phone] | | +--------+--------+ + + + + Encounter Details +--------+ + + + + | Date | Type | Department | Care Team | Description | +--------+ + + + + | 01/15/ | [facility] | [facility] | [place] Nurse | Central Line Care | | 2016 | l Support | [facility] [place] | [address] | ([facility]) | | | Staff | [address] | [address] [place], [place] | | | | | [address] [place], [place] | [address] | | | | | [address] | [phone] | | | | | [phone] | | | | | | | Sree Jain Ma | | | | | | Schedule [place], | | | | | | [place] [address] | | +--------+ + + + + [...]
--- OUTSIDE RECORDS SUMMARY | ~2018-07-08 | XMS | Clinical Summary ---
Demographics + + + | Address | [address] | | | [place] [address] | + + + | Home Phone [...] [place] | | | | | [address] | | + + + + + Care Team Providers + +------+ + | Care Manufacturing Team Member Name | Role | Phone | + +------+ + | James Horne MD | PP | | + +------+ + Source Comments [facility] is fully live on both [facility] and [facility] Allergies + + + + + + [...] | 04/1 | | Activ | | [id number] | needed. | | | 1/20 | [...] + + + + | Pneumococcal | | | | | vaccination (1 of 1 | 7 | | | | - PPSV23) | | | | + + + + + | Mammogram | | | | | | 1 | | | + + + + + | Influenza (Flu) | | 11/27/2014, 11/23/2013, | | | vaccination (Season | 9 | 01/03/2013 | | | Ended) | | | | + + + [...] | | | | | | | [id number] | | + +--------+ +--------+ + +--------+ [...] Self | [birth year] | [address] | | | al/Fam | | 1961 | [phone] | [place] | | | de | | | 9 (Home) | [address] | + +--------+ +--------+ + +
--- OUTSIDE RECORDS SUMMARY | ~2018-07-08 | XMS | Encounter Summary ---
Demographics + + + | Address | [address] | | | [place] [address] | + + + | Home Phone | | + + + | Preferred Language | Unknown | + + + | Marital Status | Single | + + + | Gnosticism Affiliation | Unknown | + + + | Race | White | + + + | Ethnic Group | Not or | + + + Author + + + | Author | [facility] | + + + | Organization | [facility] | + + + | Address | Unknown | + + + | Phone | Unavailable | + + + Support + + + + + | Name | Relationship | Address | Phone | + + + + + | Lolis Rodriguez | SC[address]TY | [address] | | | | | [address] | | | | | [address] | | + + + + + Care Team Providers + +------+ + | Care Spa Coordinator Name | Role | Phone | + [...] Care | | 2015 | Collaborati | [facility] [place] | MD CLARISA CALLES | | | | ve Order | [address] | GROUP [place] [address] | | | | | [address] [place], [place] | [address] | | | | | [address] | [address] [place], [place] | | | | | [phone] | [address] | | | | | | | [...]
--- OUTSIDE RECORDS SUMMARY | ~2018-07-08 | XMS | Encounter Summary ---
Demographics + + + | Address | [address] | | | [place] [address] | + + + | Home Phone [...] Author | [facility] | + + + | Organization | [facility] | + + + | Address | Unknown | + + + | Phone | Unavailable | + + + Support + + + + + | Name | Relationship | Address | Phone | + + + + + | Lolis Rodriguez | SCOTTY | [address] | | | | | [address] | | | | | [address] | | + + + + + Care Team Providers + +------+ + | Care Metal Buildings Assembler Name | Role | Phone | [...] | 2001 | Only | Medicine [address] | | | | | | [address] | | | | | | Road Mailcode: L475 | | | | | | Outpatient Clinic | | | | | | [address] | | | | | | [place], [place] | | | | | | [address] | | | | | | [phone] | | | +--------+ + + + [...] + + + | [facility] | [address] | [place] [address] | | | LABORATORY | | | [...] | + + + + + | [facility] | [address] | [place] [address] | | | LABORATORY | | | [...] | + + + + + | [facility] | [address] | [place] [address] | | | LABORATORY | | | [...] | | | [address]ANS | [facility] | | | | | | Laboratories. | | | | + + + + + + + + | Specimen | + + | | + + + + + + + | Performing | Address | City/State/Zipcode | Phone Number | | Organization | | | | + + + + + | [facility] | [address] | [place] [address] | | | LABORATORY | | | [...] | + + + + + | [facility] | [address] | [place] [address] | | | LABORATORY | | | [...] | + + + + + | [facility] DEPARTMENT | [address] | [place] [address] | | | PATHOLOGY | [address] | | | + + + + + | [facility] DEPARTMENT | [address] | [place] [address] | | | PATHOLOGY | [address] [...] | + + + + + | [facility] DEPARTMENT OF | [address] | [place] [address] | | | PATHOLOGY | [address] | | | + + + + + | [facility] DEPARTMENT OF | [address] | [place] [address] | | | PATHOLOGY | [address] [...] | + + + + + | [facility] DEPARTMENT OF | [address] | [place] [address] | | | PATHOLOGY | [address] | | | + + + + + | [facility] DEPARTMENT OF | [address] | [place] [address] | | | PATHOLOGY | [address] [...] Performed At | + + + | [id number] Klahr Phoned | [facility] | | | DEPARTMENT OF | | | PATHOLOGY | + + + + + + + + | Performing | Address | City/State/Zipcode | Phone Number | | Organization | | | | + + + + + | [facility] DEPARTMENT OF | [address] | [place] [address] | | | PATHOLOGY | [address] | | | + + + + + | [facility] DEPARTMENT | [address] | [place] [address] | | | PATHOLOGY | [address] [...] [facility] | | | CHOLESTEROL | HDL | | DEPARTMENT | | | | Reference | | OF | | | | Range: | | PATHOLOGY | | | | High | | | | | | Risk: | | | | | | <40 | | | | | | Desirable: | | | | | | >=60 | | | | + + + + + + + + | Specimen | + + | | + + + + + + + | Performing | Address | City/State/Zipcode | Phone Number | | Organization | | | | + + + + + | [facility] DEPARTMENT OF | [facility] | [place] [address] | | | PATHOLOGY | [address] | | | + + + + + | [facility] DEPARTMENT OF | [address] | [place] [address] | | | PATHOLOGY | [address] [...] | + + + + + | [facility] DEPARTMENT OF | [address] | [place] [address] | | | PATHOLOGY | [address] | | | + + + + + | [facility] DEPARTMENT OF | [address] | [place] [address] | | | PATHOLOGY | [address] [...] | + + + + + | [facility] | [facility] | [place] [address] | | | PATHOLOGY | [address] | | | + + + + + | [facility] | [address] [place] [address] | [place] [address] | | | PATHOLOGY | [address] [...] | [facility] | | | ES | | | DEPARTMENT | | | | Triglyceride Reference | | OF | | | | Range: | | PATHOLOGY | | | | Normal | | | | | | : | | | | | | <150 | | | | | | Borderline | | | | | | High: 150 - | | | | | | 199 | | | | | | High: | | | | | | 200 - | | | | | | 499 | | | | | | Very High: | | | | | | >=500 | | | | + + + + + + + + | Specimen | + + | | + + + + + + + | Performing | Address | City/State/Zipcode | Phone Number | | Organization | | | | + + + + + | [facility] | [address] | [place] [address] | | | PATHOLOGY | [address] | | | + + + + + | [facility] | [address] | [place] [address] | | | PATHOLOGY | [address] [...] Desirable: | | | | | | <200 | | | | | | Borderline | | | | | | High: 200 - | | | | | | 239 | | | | | | High: | | | | | | >=240 | | | | + + + + + + + + | Specimen | + + | | + + + + + + + | Performing | Address | City/State/Zipcode | Phone Number | | Organization | | | | + + + + + | [facility] DEPARTMENT | [address] | [place] [address] | | | PATHOLOGY | [address] | | | + + + + + | [facility] DEPARTMENT OF | [address] | [place] [address] | | | PATHOLOGY | [address] | | | + + + + + documented in this encounter Visit Diagnoses Not on filedocumented in this encounter"
--- OUTSIDE RECORDS SUMMARY | ~2018-07-08 | XMS | Encounter Summary ---
Demographics + + + | Address | [address] | | | [place] [address] | + + + | Home Phone | | + + + | Preferred Language | Unknown | + + + | Marital Status | Single | + + + | Nondenominational Affiliation | Unknown | + + + | Race | White | + + + | Ethnic Group | Not or | + + + Author + + + | Author | [facility] | + + + | Organization | [facility] | + + + | Address | Unknown | + + + | Phone | Unavailable | + + + Support + + + + + | Name | Relationship | Address | Phone | + + + + + | Lolis Rodriguez | SCOTTY | [address] | | | | | [address] | | | | | [address] | | + + + + + Care Team Providers + +------+ + | Care Bulb Packer Name | Role | Phone | [...] | | 2009 | Encounter | [address] | | | | | | [facility] | | | | | | [place], [place] | | | | | | [address] | | | +--------+ + + + [...]
--- OUTSIDE RECORDS SUMMARY | ~2018-07-08 | XMS | Encounter Summary ---
Demographics + + + | Address | [address] | | | [place] [address] | + + + | Home Phone [...] + + + | Author | [facility] | + + + | Organization | [facility] | + + + | Address | Unknown | + + + | Phone | Unavailable | + + + Support + + + + + | Name | Relationship | Address | Phone | + + + + + | Lolis Rodriguez | SCOTTY | [address] | | | | | [address] | | | | | [address] | | + + + + + Care Team Providers + +------+ + | Care Orchard Worker Name | Role | Phone | [...] Mailcode: | | | | | | [address] | | | | | | [facility] | | | | | | [place], [place] | | | | | | [address] | | | | | | [phone] | | | +--------+ + + + [...]
--- OUTSIDE RECORDS SUMMARY | ~2018-07-08 | XMS | Encounter Summary ---
Demographics + + + | Address | [address] | | | [place] [address] | + + + | Home Phone | | + + + | Preferred Language | Unknown | + + + | Marital Status | Single | + + + | Anabaptism Affiliation | Unknown | + + + [...] [address] | | | | | [address] | | | | | [address] | | + + + + + Care Team Providers + +------+ + | Care Web Database Developer Name | Role | Phone | [...] 2017 | | [facility] | [address] | | | | | [place] [address] | [address] | | | | | [facility] | [place], [place] | | | | | Road [address] | [address] | | | | | [place], | [phone] | | | | | [place] [address] | | | | | | [phone] | | | +--------+ + + + [...]
--- OUTSIDE RECORDS SUMMARY | ~2018-07-08 | XMS | Encounter Summary ---
Demographics + + + | Address | [address] | | | [place] [address] | + + + | Home Phone [...] Author + + + | Author | [facility] | + + + | Organization | [facility] | + + + | Address | Unknown | + + + | Phone | Unavailable | + + + Support + + + + + | Name | Relationship | Address | Phone | + + + + + | Lolis Rodriguez | SCOTTY | [address] | | | | | [address] | | | | | [address] | | + + + + + Care Team Providers + +------+ + | Care Grid Caster Name | Role | Phone | + [...] [address] | | | | | | [place], [place] | | | | | | [address] | | | | | | [phone] | | | +--------+ + + + [...] + + + | [facility] | [address] | [place] [address] | | | LABORATORY | | | [...] | + + + + + | [facility] | [address] | [place] [address] | | | LABORATORY | | | [...] | + + + + + | [facility] | [address] | [place] [address] | | | LABORATORY | | | [...] | | | | AMOL EVANS | [facility] | | | | | | Laboratories. | | | | + + + + + + + + | Specimen | + + | | + + + + + + + | Performing | Address | City/State/Zipcode | Phone Number | | Organization | | | | + + + + + | [facility] | [address] | [place] [address] | | | LABORATORY | | | [...] | + + + + + | [facility] | [address] | [place] [address] | | | LABORATORY | | | [...] | + + + + + | [facility] DEPARTMENT | [address] | [place] [address] | | | PATHOLOGY | [address] | | | + + + + + | [facility] DEPARTMENT | [address] | [place] [address] | | | PATHOLOGY | [address] [...] | + + + + + | [facility] DEPARTMENT OF | [address] | [place] [address] | | | PATHOLOGY | [address] | | | + + + + + | [facility] DEPARTMENT OF | [address] | [place] [address] | | | PATHOLOGY | [address] [...] | + + + + + | [facility] DEPARTMENT OF | [address] | [place] [address] | | | PATHOLOGY | [address] | | | + + + + + | [facility] DEPARTMENT OF | [address] | [place] [address] | | | PATHOLOGY | [address] [...] Performed At | + + + | [id number] Scofield Phoned | [facility] | | | DEPARTMENT OF | | | PATHOLOGY | + + + + + + + + | Performing | Address | City/State/Zipcode | Phone Number | | Organization | | | | + + + + + | [facility] DEPARTMENT OF | [address] | [place] [address] | | | PATHOLOGY | [address] | | | + + + + + | [facility] | [address] | [place] [address] | | | PATHOLOGY | [address] [...] | + + + + + | [facility] DEPARTMENT OF | [facility] | [place] [address] | | | PATHOLOGY | [address] | | | + + + + + | [facility] DEPARTMENT OF | [address] | [place] [address] | | | PATHOLOGY | [address] [...] | + + + + + | [facility] DEPARTMENT OF | [address] | [place] [address] | | | PATHOLOGY | [address] | | | + + + + + | [facility] DEPARTMENT OF | [address] | [facility] [place] [place] [address] | | | PATHOLOGY | [address] [...] + + + + + | [facility] | [facility] | [place] [address] | | | PATHOLOGY | [address] | | | + + + + + | [facility] | [address] [place] [address] | [place] [address] | | | PATHOLOGY | [address] [...] + + + + + | [facility] | [address] | [place] [address] | | | PATHOLOGY | [address] | | | + + + + + | [facility] | [address] | [place] [address] | | | PATHOLOGY | [address] [...] | + + + + + | [facility] DEPARTMENT | [address] | [place] [address] | | | PATHOLOGY | [address] | | | + + + + + | [facility] DEPARTMENT OF | [address] | [place] [address] | | | PATHOLOGY | [address] | | | + + + + + documented in this encounter Visit Diagnoses Not on filedocumented in this encounter"
--- OUTSIDE RECORDS SUMMARY | ~2018-07-08 | XMS | Encounter Summary ---
Demographics + + + | Address | [address] | | | [place] [address] | + + + | Home Phone [...] + + + | Author | [facility] | + + + | Organization | [facility] | + + + | Address | Unknown | + + + | Phone | Unavailable | + + + Support + + + + + | Name | Relationship | Address | Phone | + + + + + | Lolis Rodriguez | SCOTTY | [address] | | | | | [address] | | | | | [address] | | + + + + + Care Team Providers + +------+ + | Care Piano Technician Name | Role | Phone | + +------+ + | No Pcp Per Patient | PCP | Unavailable | + +------+ + Encounter Details +--------+ + + + + | Date | Type | Department | Care Team | Description | +--------+ + + + + | 09/01/ | Abstract | [facility] | Mahendra Cash, | | | 2013 | | [place] [facility] [place] | MD [facility] | | | | | [address] | GROUP [place] [address] | | | | | [address] | [address] | | | | | [address] | [address] [place] | | | | | [phone] | [address] | | | | | | | [...]
--- OUTSIDE RECORDS SUMMARY | ~2018-07-08 | XMS | Encounter Summary ---
Demographics + + + | Address | [address] | | | [place] [address] | + + + | Home Phone [...] [address] | | | | | [address] | | + + + + + Care Team Providers + +------+ + | Care Naphthalene Operator Helper Name | Role | Phone | [...] | | | al | MEDICAL | [address] | | | | | status(V45.8 | GROUP | [address] | | | | | 9) | [place] | [place], [place] | | | | | Procedures | [address] | [address] | | | | | [place] | [address] | Phone: | | | | | LABS | [address] | [phone] | | | | | | [place], [place] | Fax: | | | | | | [address] | [phone] | | | | | | Phone: | | | | | | | [phone] | | | | | | | Fax: | | | | | | | [phone] | | +--------+--------+ + + + + Encounter Details +--------+ + + + + | Date | Type | Department | Care Team | Description | +--------+ + + + + | 10/10/ | [facility] | [facility] | Sree Abdul Nurse | Central Line Care | | 2014 | l Support | [facility] [place] | [address] | | | | Staff | [address] | [address] [place], [place] | | | | | [address] [place], [place] | [address] | | | | | [address] | [phone] | | | | | [phone] | | | | | | | Sree Jain Ma | | | | | | Schedule [place], | | | | | | [place] [address] | | +--------+ + + + + [...]
--- OUTSIDE RECORDS SUMMARY | ~2018-07-08 | XMS | Clinical Summary ---
Demographics + + + | Address | [address] | | | [place] [address] | + + + | Home Phone | | + + + | Preferred Language | Unknown | + + + | Marital Status | | + + + | Sabianism Affiliation | Unknown | + + + | Race | Unknown | + + + | Ethnic Group | Unknown | + + + Author + + + | Author | [facility] | + + + | Organization | [facility] | + + + | Address | Unknown | + + + | Phone | Unavailable | + + + Care Team Providers + +------+ + | Care Rivet Tapping Machine Operator Name | Role | Phone [...] Influenza | | 11/27/2014 | | | (Season Ended) | 9 | | | + + [...] +------+-------+ + | MEDICARE | MEDICA | [id number] | | | [address] | | | RE | | | | [place] [address] | | | IP-OP | | | [...] Self | [birth year] | Home: | [address] | | | al/Fam | | 1960 | [phone] [address] [place], | | | de | | | [address] | [place] [address] | + +--------+ +--------+ + +"
--- OUTSIDE RECORDS SUMMARY | ~2018-07-08 | XMS | Encounter Summary ---
Demographics + + + | Address | [address] | | | [place] [address] | + + + | Home Phone [...] + + + | Author | [facility] | + + + | Organization | [facility] | + + + | Address | Unknown | + + + | Phone | Unavailable | + + + Support + + + + + | Name | Relationship | Address | Phone | + + + + + | Lolis Rodriguez | SCOTTY | [address] | | | | | [address] | | | | | [address] | | + + + + + Care Team Providers + +------+ + | Care Photo Printer Name | Role | Phone | + [...] Care | | 2014 | Collaborati | [facility] [place] | MD [facility] | | | | ve Order | [address] | GROUP [place] [address] | | | | | [address] [place], [place] | [address] | | | | | [address] | [address] [place], [place] | | | | | [phone] | [address] | | | | | | | [...]
--- OUTSIDE RECORDS SUMMARY | ~2018-07-08 | XMS | Encounter Summary ---
Demographics + + + | Address | [address] | | | [place] [address] | + + + | Home Phone [...] + + + | Author | [facility] | + + + | Organization | [facility] | + + + | Address | Unknown | + + + | Phone | Unavailable | + + + Support + + + + + | Name | Relationship | Address | Phone | + + + + + | Lolis Rodriguez | SCOTTY | [address] | | | | | [address] | | | | | [address] | | + + + + + Care Team Providers + +------+ + | Care Corrosion Control Technician Name | Role | Phone | [...] | | | postprocedur | [facility] | [place] | | | | | al | MEDICAL | [address] | | | | | status(V45.8 | GROUP | [address] | | | | | 9) | [place] | [place], [place] | | | | | Procedures | [address] | [address] | | | | | [place] | [address] | Phone: | | | | | LABS | [address] | [phone] | | | | | | [place], [place] | Fax: | | | | | | [address] | [phone] | | | | | | Phone: | | | | | | | [phone] | | | | | | | Fax: | | | | | | | [phone] | | +--------+--------+ + + + + Encounter Details +--------+ + + + + | Date | Type | Department | Care Team | Description | +--------+ + + + + | 07/21/ | [facility] | [facility] | Sree Abdul Nurse | Central Line Care | | 2013 | l Support | [place] [facility] [place] | [address] | ([facility]) | | | Staff | [address] | [address] [place], [place] | | | | | [address] [place], [place] | [address] | | | | | [address] | [phone] | | | | | [phone] | | | | | | | Sree Jain Ma | | | | | | Schedule [place], | | | | | | [place] [address] | | +--------+ + + + + [...]
--- OUTSIDE RECORDS SUMMARY | ~2018-07-08 | XMS | Encounter Summary ---
Demographics + + + | Address | [address] | | | [place] [address] | + + + | Home Phone [...] + + + | Author | [facility] | + + + | Organization | [facility] | + + + | Address | Unknown | + + + | Phone | Unavailable | + + + Support + + + + + | Name | Relationship | Address | Phone | + + + + + | Lolis Rodriguez | SCOTTY | [address] | | | | | [address] | | | | | [address] | | + + + + + Care Team Providers + +------+ + | Care Produce Inspector Name | Role | Phone | [...] [address] | | | | | | [facility] | | | | | | [place], [place] | | | | | | [address] | | | +--------+ + + + [...]
--- OUTSIDE RECORDS SUMMARY | ~2018-07-08 | XMS | Encounter Summary ---
Demographics + + + | Address | [address] | | | [place] [address] | + + + | Home Phone [...] Author + + + | Author | [facility] | + + + | Organization | [facility] | + + + | Address | Unknown | + + + | Phone | Unavailable | + + + Support + + + + + | Name | Relationship | Address | Phone | + + + + + | Lolis Rodriguez | SCOTTY | [address] | | | | | [address] | | | | | [address] | | + + + + + Care Team Providers + +------+ + | Care Supervisor Sawing And Assembly Name | Role | Phone | + [...] | | | | | | [facility] | | | | | | [place], [place] | | | | | | [address] | | | +--------+ + + + [...]
--- OUTSIDE RECORDS SUMMARY | ~2018-07-08 | XMS | Clinical Summary ---
Demographics + + + | Address | [address] | | | [place] [address] | + + + | Home Phone [...] | Author | [facility] | | | and Ramakrishnaana | + + + | Organization | [facility] | | | and [place] [...] Team Providers + +------+ + | Care Topographical Engineer Name | Role | Phone | [...] + + + + | Overview: Overview: [id number] Assessment & Plan: Colonoscopy | | procedure [...] +--------+ +---------+--------+ | MEDICARE | MEDICA | [id number] | 10/25/19 | [phone] | | Medica [...] | Self | [birth year] | | [address] | | | al/Fam | | 1961 | [phone] | [address] [place] | | | de | | | 9 ([place]) | [address] | + +--------+ +--------+ + + Advance Directives Patient has advance care planning documents on file. For more information, please contact:[facility] [place] [address]
--- OUTSIDE RECORDS SUMMARY | ~2018-07-08 | XMS | Clinical Summary ---
Demographics + + + | Address | [address] | | | [place] [address] | + + + | Home Phone [...] [place] | | | | | [address] | | + + + + + Care Team Providers + +------+ + | Care Forming Department Supervisor Name | Role | Phone | + +------+ + | James Horne MD | PP | | + +------+ + Source Comments [facility] is fully live on both [facility] and [facility] Allergies + + + + + [...] | 04/1 | | Activ | | [id number] | needed. | | | 1/20 | [...] | | | | | | | [address] | | + +--------+ +--------+ + +--------+ + +--------+ +--------+ + + | Guarantor Name | Accoun | Relation to | Date | Phone | Billing Address | | | t Type | Patient | of | | | | | | | | | | + +--------+ +--------+ + + | Laury Crockett | Person | Self | [birth year] | [address] | | | al/Fam | | 1961 | [phone] | [place] | | | de | | | 9 (Home) | [address] | + +--------+ +--------+ + +
--- OUTSIDE RECORDS SUMMARY | ~2018-07-08 | XMS | Encounter Summary ---
Demographics + + + | Address | [address] | | | [place] [address] | + + + | Home Phone [...] [address] | | | | | [address], [place] | | | | | [address] | | + + + + + Care Team Providers + +------+ + | Care Software Release Engineer Name | Role | Phone | [...] as of this encounter Progress Notes Interface, Animal Care Worker In - 01/14/2006 5:[address] [address] or June 12, 1999 Marlon Freeman D.O. [facility] [address] [place] [address] RE: LAURY MIDDLETON MR #: [id number] Dear Dr. Freeman: I had the pleasure [...] three cardiac arteriograms. MEDICATIONS 1. Prilosec 2. [place]. 3. Accolate. 4. Evista. 4. Promethazine. 5. [...] attempt to obtain her ultrasound reports from [facility]. I am still entertaining the [...] Naun Carias M.D. HERI / LUIS EDUARDO [id number] / [id number] / [id number] / [id number] signed by Interface, Animal Care Worker In at 01/14/2006 5:11 AM PSTdocume nted in this encounter Plan of Treatment Not on filedocumented as of this encounter Visit Diagnoses Not on filedocumented in this encounter"
--- OUTSIDE RECORDS SUMMARY | ~2018-07-08 | XMS | Encounter Summary ---
Demographics + + + | Address | [address] | | | [place] [address] | + + + | Home Phone [...] [address] | | | | | [place], [place] | | | | | [address] | | + + + + + Care Team Providers + +------+ + | Care Rigging Man Name | Role | Phone | + [...] + + + | [facility] | [address] | [place] [address] | | | LABORATORY | | | [...] | + + + + + | [facility] | [address] | [place] [address] | | | LABORATORY | | | [...] + + + | [facility] | [address] | [place] [address] | | | LABORATORY | | | [...] + + + | [facility] | [address] | [place] [address] | | | LABORATORY | | | [...] | + + + + + | [facility] | [address] | [place] [address] | | | LABORATORY | | | [...] + + + + + | [facility] | [address] | [place] [address] | | | LABORATORY | | | [...] + + + | [facility] | [address] | [place] [address] | | | LABORATORY | | | [...] + + + | [facility] | [address] | [place] [address] | | | PATHOLOGY | [address] | | | + + + + + | [facility] | [address] | [place] [place] [address] | | | PATHOLOGY | [address] [...] (L)Comment: | 0.98 - 1.08 INR | [facility] | | | | PT INR | [...] + + | [facility] DEPARTMENT OF | [address] | [place] [address] | | | PATHOLOGY | [address] | | | + + + + + | [facility] | [address] | [place] [address] | | | PATHOLOGY | [address] | | | + + + + + documented in this encounter Visit Diagnoses Not on filedocumented in this encounter"
--- OUTSIDE RECORDS SUMMARY | ~2018-07-08 | XMS | Encounter Summary ---
Demographics + + + | Address | [address] | | | [place] [address] | + + + | Home Phone | | + + + | Preferred Language | Unknown | + + + | Marital Status | Single | + + + | Yarsanism Affiliation | Unknown | + + + | Race | White | + + + | Ethnic Group | Not or | + + + Author + + + | Author | [facility] | + + + | Organization | [facility] | + + + | Address | Unknown | + + + | Phone | Unavailable | + + + Support + + + + + | Name | Relationship | Address | Phone | + + + + + | Loils Rodriguez | SCOTTY | [address] | | | | | [place] | | | | | [address] | | + + + + + Care Team Providers + +------+ + | Care Adding Machine Operator Name | Role | Phone [...] + + | 08/19/ | Refill | [facility] | Clair Kay MD | Refill Request | | 2017 | | [facility] | [address] | | | | | [place] [address] | [facility] [address] | | | | | [address] | [place], [place] | | | | | [address] | [address] | | | | | [place], | [phone] | | | | | [place] [address] | | | | | | [phone] | | | +--------+--------+ + + + [...]
--- OUTSIDE RECORDS SUMMARY | ~2018-07-08 | XMS | Encounter Summary ---
Demographics + + + | Address | [address] | | | [place] [address] | + + + | Home Phone [...] + + + | Author | [facility] | + + + | Organization | [facility] | + + + | Address | Unknown | + + + | Phone | Unavailable | + + + Support + + + + + | Name | Relationship | Address | Phone | + + + + + | Lolis Rodriguez | SCOTTY | [address] | | | | | [address] | | | | | [address] | | + + + + + Care Team Providers + +------+ + | Care Rv Parts And Service Director Name | Role | Phone | + +------+ + | Jaems Horne MD | PCP | | + [...] | | genital | [facility] | [address] | | | | | prolapse, | Hospital | [facility] | | | | | unspecified | [address] | [address] | | | | | Procedures | [address] | [place], [place] | | | | | [place] | [address] | [address] | | | | | PATIENT | [place], | Phone: | | | | | [place] | [place] [address] | [phone] | | | | | EST PATIENT | Phone: | Fax: | | | | | [place] | [phone] | [phone] | | | | | | Fax: | | | | | | | [phone] | | +--------+--------+ + + + + Encounter Details +--------+---------+ + + + | Date | Type | Department | Care Team | Description | +--------+---------+ + + + | 08/18/ | Office | [facility] | Clair Kay MD | Pelvic pain (Primary | | 2017 | Visit | [facility] | [address] | Dx); Pain of right | | | | [facility] [address] | [address] | hip joint; Mixed | | | | [facility] | [place], [place] | incontinence urge | | | | [address] | [address] | and stress | | | | [place], | [phone] | (male)(female) | | | | [place] [address] | | | | | | [phone] | | | +--------+---------+ + + + [...] to decrease the ne rve sensitivities. 2. Alanreed - please stop by [employer] on your way out of town to waste picker "astroglide" for lubrication. 3. Follow up - please make an appointment in 3 months after starting PT. Please sign up for MyChart so we can communicate about your gabapentin dosing. I have included below some information about pelvic muscle pain. Clair Brown MD Photovoltaic Technician Division of Urogynecology and Reconstructive Pelvic Surgery Department of Laboratory Equipment Cleaner [facility] & Science [place] Levator Myalgia The muscles along the base [...] activities or seeing a sp orts medicine/ seafood technology specialist. & Chronic Pain Levator myalgia can be associated with chronic pain. In certain cases we will recommend a paint preparer to help with your care. documented in [...] on the patient intake questionnaire (scanned into Potential) and with the patient. The summary is [...] be found in the scanned documents in Potential. They have also been entered into rele vant carson of the Potential database. Past Medical History: Diagnosis Date Abdominal [...] Spasm of muscle [facility] 1980 Thoracic spondylosis without myelopathy [...] by mouth once daily., Disp: , Rfl: blknfxom-spyicambz-rnneysbvfvlzsr 3.5-10,000-1 mg/mL-unit/mL-% otic solution, Instill in e [...]
--- OUTSIDE RECORDS SUMMARY | ~2018-07-08 | XMS | Encounter Summary ---
Demographics + + + | Address | [address] | | | [place] [address] | + + + | Home Phone [...] Author + + + | Author | [facility] | + + + | Organization | [facility] | + + + | Address | Unknown | + + + | Phone | Unavailable | + + + Support + + + + + | Name | Relationship | Address | Phone | + + + + + | Lolis Rodriguez | SCOTTY | [address] | | | | | [place] | | | | | [address] | | + + + + + Care Team Providers + +------+ + | Care Panel Sewer Name | Role | Phone | + [...] | | | postprocedur | LEGACY | [place] | | | | | al | MEDICAL | [address] | | | | | status(V45.8 | GROUP | [address] | | | | | 9) | [place] | [place], [place] | | | | | Procedures | [address] | [address] | | | | | [place] | [address] | Phone: | | | | | LABS | [address] | [phone] | | | | | | [place], [place] | Fax: | | | | | | [address] | [phone] | | | | | | Phone: | | | | | | | [phone] | | | | | | | Fax: | | | | | | | [phone] | | +--------+--------+ + + + + Encounter Details +--------+ + + + + | Date | Type | Department | Care Team | Description | +--------+ + + + + | 01/15/ | [facility] | [facility] | [place] Nurse | [facility] | | 2016 | l Support | [facility] [place] | [address] | ([facility]) | | | Staff | [address] | [address] [place], [place] | | | | | [address] [place], [place] | [address] | | | | | [address] | [phone] | | | | | [phone] | | | | | | | Sree Jain Ma | | | | | | Schedule [place], | | | | | | [place] [address] | | +--------+ + + + + [...]
--- OUTSIDE RECORDS SUMMARY | ~2018-07-08 | XMS | Encounter Summary ---
Demographics + + + | Address | [address] | | | [place] [address] | + + + | Home Phone [...] Author + + + | Author | [facility] | + + + | Organization | [facility] | + + + | Address | Unknown | + + + | Phone | Unavailable | + + + Support + + + + + | Name | Relationship | Address | Phone | + + + + + | Lolis Rodriguez | SCOTTY | [address] | | | | | [place] | | | | | [address] | | + + + + + Care Team Providers + +------+ + | Care Senior Marketing Analyst Name | Role | Phone | + +------+ + | Mahendra Cash MD | PCP | | + +------+ + Encounter Details +--------+ + + + + | Date | Type | Department | Care Team | Description | +--------+ + + + + | 09/15/ | Document-Sc | UNKNOWN DEPARTMENT | Unknown . | | | 2013 | anned | [address] | | | | | | [facility] | | | | | | [place], [place] | | | | | | [address] | | | +--------+ + + + [...]
--- OUTSIDE RECORDS SUMMARY | ~2018-07-08 | XMS | Encounter Summary ---
Demographics + + + | Address | [address] | | | [place] [address] | + + + | Home Phone [...] Author + + + | Author | [facility] | + + + | Organization | [facility] | + + + | Address | Unknown | + + + | Phone | Unavailable | + + + Support + + + + + | Name | Relationship | Address | Phone | + + + + + | Lolis Rodriguez | SCOTTY | [address] | | | | | [place] | | | | | [address] | | + + + + + Care Team Providers + +------+ + | Care Telehealth Case Manager Name | Role | Phone [...] + + | 08/19/ | Refill | [facility] | Clair Kay MD | Refill Request | | 2017 | | [facility] | [address] | | | | | [place] [address] | [facility] [address] | | | | | [address] | [place], [place] | | | | | [address] | [address] | | | | | [place], | [phone] | | | | | [place] [address] | | | | | | [phone] | | | +--------+--------+ + + + [...]
--- OUTSIDE RECORDS SUMMARY | ~2018-07-08 | XMS | Encounter Summary ---
Demographics + + + | Address | [address] | | | [place] [address] | + + + | Home Phone [...] Author + + + | Author | [facility] | + + + | Organization | [facility] | + + + | Address | Unknown | + + + | Phone | Unavailable | + + + Support + + + + + | Name | Relationship | Address | Phone | + + + + + | Lolis Rodriguez | SCOTTY | [address] | | | | | [address] | | | | | [address] | | + + + + + Care Team Providers + +------+ + | Care Maintainer Operator Name | Role | Phone | [...] | | genital | [facility] | [address] | | | | | prolapse, | Hospital | [facility] | | | | | unspecified | [address] | [address] | | | | | Procedures | [address] | [place], [place] | | | | | [place] | [address] | [address] | | | | | PATIENT | [place], | Phone: | | | | | [place] | [place] [address] | [phone] | | | | | EST PATIENT | Phone: | Fax: | | | | | [address] | [phone] | [phone] | | | | | | Fax: | | | | | | | [phone] | | +--------+--------+ + + + + [...] hip joint; Mixed | | | | [facility] | [place], [place] | incontinence urge | | | | [address] | [address] | and stress | | | | [place], | [phone] | (male)(female) | | | | [place] [address] | | | | | | [phone] | | | +--------+---------+ + + + [...] to decrease the ne rve sensitivities. 2. Matteson - please stop by [employer] on your way out of town to chart picker "astroglide" for lubrication. 3. Follow up - please make an appointment in 3 months after starting PT. Please sign up for MyChart so we can communicate about your gabapentin dosing. I have included below some information about pelvic muscle pain. Clair Brown MD Figure Refinisher And Repairer Division of Urogynecology and Reconstructive Pelvic Surgery Department of Liquid Waste Treatment Plant Operator [facility] Science [place] Levator Myalgia The muscles along the base [...] activities or seeing a sp orts medicine/ administration specialist. & Chronic Pain Levator myalgia can be associated with chronic pain. In certain cases we will recommend a silk screen painter to help with your care. documented [...] on the patient intake questionnaire (scanned into Medical Simulation) and with the patient. The summary is [...] be found in the scanned documents in Medical Simulation. They have also been entered into rele vant carson of the Medical Simulation database. Past Medical History: Diagnosis Date Abdominal [...] allergies Spasm of muscle SVT (supraventricular tachycardia) ([facility]) 1980 Thoracic spondylosis without myelopathy Past [...] , Rfl: insulin needles, Disposable, (BD ULTRA-FINE ROGEROI PEN NEEDLE 4 MM X 32 G) [...] by mouth once daily., Disp: , Rfl: dbaqfqne-ehiyaowuy-lonzbjlmconzlw 3.5-10,000-1 mg/mL-unit/mL-% otic solution, Instill in e [...]
--- OUTSIDE RECORDS SUMMARY | ~2018-07-08 | XMS | Clinical Summary ---
Demographics + + + | Address | [address] | | | [place] [address] | + + + | Home Phone | | + + + | Preferred Language | Unknown | + + + | Marital Status | | + + + | Amish Affiliation | Unknown | + + + | Race | Unknown | + + + | Ethnic Group | Unknown | + + + Author + + + | Author | [facility] | + + + | Organization | [facility] | + + + | Address | Unknown | + + + | Phone | Unavailable | + + + Care Team Providers + +------+ + | Care Potato Grader Name | Role | Phone | + [...] +------+-------+ + | MEDICARE | MEDICA | [id number] | | | [address] | | | RE | | | | [place] [address] | | | IP-OP | | | [...] Self | [birth year] Home: | [address] | | | al/Fam | | 1960 | [phone] [address] [place], | | | de | | | [address] | [place] [address] | + +--------+ +--------+ + +"
--- OUTSIDE RECORDS SUMMARY | 2018-07-08 15:52 | XMS ---
PreManage Notification: GROVER WYNN Security Pta Events No recent Security Events currently on file CRITERIA MET - Group Notification - [facility] CARE PROVIDERS [facility] Current PHONE: [phone] MARILYN CLAYTON Nurse Practitioner: Family 09/07/2017-Current PHONE: Unknown ROXY MAS Primary Care Current PHONE: Unknown DR AMES Primary Care 03/14/2016-Current PHONE: [phone] Charisse has no Care Guidelines for this patient. Care History Social 03/18/2016 [facility] ENCOURAGE PATIENT TO USE PCP OR WALK-IN CLINIC FOR NON-EMERGENT PROBLEMS. SHE CAN CALL SLAT PICKLER FOR HELP OR QUESTIONS. [phone]. Medical/Surgical 09/07/2017 [facility] - Patient is currently established with [facility]. If patient is seen in the ED during business hours. Please contact CHWs at [facility] at [phone]. Care Recommendation: This patient has had 5 or more Emergency Department visits in the last 12 months.\T\nbsp; Patient requires education on the scope and purpose of the ED as an acute care provider not a Primary Care Provider and should not be utilized for chronic conditions.\T\nbsp; If patient returns to ED please contact Community Health WorkerWendy at [phone]. These are guidelines and the provider should exercise clinical judgment when providing care. E.D. VISIT COUNT (12 MO.) 6 [facility]. TOTAL 6 NOTE: Visits indicate total known visits. ED/UCC VISIT TRACKING (12 MO.) 07/08/2018 15:50 [facility] [place] TYPE: Emergency COMPLAINT: - BURNING SENSATION IN LUNGS 03/08/2018 18:40 [facility] [place] TYPE: Emergency COMPLAINT: - ALTERED MENTAL STATUS DIAGNOSES: - Bipolar disorder, unspecified - Unspecified asthma, uncomplicated - Type 2 diabetes mellitus without complications - Presence of coronary angioplasty implant and graft - Personal history of malignant neoplasm of bladder - Other correction (current) 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 - Extrapyramidal and movement disorder, unspecified - program attendant (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 insulin - Nicotine dependence, unspecified, uncomplicated - Allergy status to narcotic agent status - program attendant (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 aspirin - Gastro-esophageal reflux disease without esophagitis - Type 2 diabetes mellitus with diabetic neuropathy, unspecified - Allergy status to other drugs, medicaments and biological substances status - Hypothyroidism, unspecified 03/06/2018 22:19 [facility] [place] TYPE: Emergency COMPLAINT: - SUICIDAL/HEAD INJURY/DIZZINESS DIAGNOSES: - Allergy status to narcotic agent status - jail (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 insulin - Unspecified asthma, uncomplicated - Bipolar disorder, unspecified - Type 2 diabetes mellitus with diabetic neuropathy, unspecified - Hypothyroidism, unspecified - Other escrow clerk (current) 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 - Suicidal ideations - Allergy status to other drugs, medicaments and biological substances status - Gastro-esophageal reflux disease without esophagitis - Unspecified injury of head, initial encounter - Unspecified fall, initial encounter - jail (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 aspirin - Old myocardial infarction - Personal history of malignant neoplasm of bladder - Acquired absence of other specified parts of digestive tract - Nicotine dependence, unspecified, uncomplicated 02/07/2018 00:22 [facility] [place] TYPE: Emergency COMPLAINT: - DIZZY/POSS BLODD SUGAR PROBLEM DIAGNOSES: - Gastro-esophageal reflux disease without esophagitis - program attendant (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 insulin - Allergy status to narcotic agent status - Hypothyroidism, unspecified - Allergy status to other drugs, medicaments and biological substances status - Type 2 diabetes mellitus with hyperglycemia - Other correction (current) 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 - jail (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 aspirin - Nicotine dependence, unspecified, uncomplicated 01/29/2018 18:00 [facility] [place] TYPE: Emergency COMPLAINT: - HIGH BLOOD SUGAR DIAGNOSES: - Allergy status to narcotic agent status - jail (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 oral hypoglycemic drugs - Migraine, unspecified, not intractable, without status migrainosus - Other chest pain - Unspecified fall, initial encounter - program attendant (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 aspirin - Allergy status to other drugs, medicaments and biological substances status - Other escrow clerk (current) 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 - Gastro-esophageal reflux disease without esophagitis - Hypothyroidism, unspecified - Gastritis, unspecified, without bleeding - Unspecified sprain of right elbow, initial encounter - Type 2 diabetes mellitus with hyperglycemia - Nicotine dependence, unspecified, uncomplicated 09/04/2017 20:[address] [facility] [place] TYPE: Emergency COMPLAINT: - STROKE SYMPTOMS DIAGNOSES: - Type 2 diabetes mellitus with diabetic neuropathy, unspecified - Other correction (current) 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 - Gastro-esophageal reflux disease without esophagitis - Migraine, unspecified, not intractable, without status migrainosus - program attendant (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 aspirin - Paresthesia of skin - Allergy status to other drugs, medicaments and biological substances status - Hypothyroidism, unspecified - Allergy status to narcotic agent status - Nicotine dependence, unspecified, uncomplicated INPATIENT VISIT TRACKING (12 MO.) No inpatient visits to display in this time frame [email or web address]
== END 2018-07-08 17:30 | disposition home or self-care (01) ==
LOC: ED 15:49
DX: Z77.098 Contact with and (suspected) exposure to other hazardous, chiefly nonmedicinal, chemicals (principal); J45.909 Unspecified asthma, uncomplicated; E11.9 Type 2 diabetes mellitus without complications; E03.9 Hypothyroidism, unspecified; F17.210 Nicotine dependence, cigarettes, uncomplicated; F31.9 Bipolar disorder, unspecified; Z85.51 Personal history of malignant neoplasm of bladder; Z85.038 Personal history of other malignant neoplasm of large intestine; Z90.710 Acquired absence of both cervix and uterus; Z90.49 Acquired absence of other specified parts of digestive tract; Z88.6 Allergy status to analgesic agent; Z88.8 Allergy status to other drugs, medicaments and biological substances; Z79.82 Long term (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 aspirin; Z79.4 Long term (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 insulin; Z79.899 Other long term (current) 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
CPT/HCPCS: 94640; 99284; 99406; Q0163

== ENCOUNTER 2018-07-28 12:46 | Emergency (ER) | payer MEDICARE, MEDICAID ==
[~2018-07-28] VITALS: Ht 157.5 cm; Wt 90.9 kg
--- OUTSIDE RECORDS SUMMARY | 2018-07-28 12:50 | XMS ---
PreManage Notification: GROVER WYNN Security Advertising Manager Events No recent Security Events currently on file CRITERIA MET - Group Notification - 6 ED Visits in 6 Months - [facility] - Has Care Guidelines - [facility] - 2 Visits in 30 Days CARE PROVIDERS [facility] Current PHONE: [phone] MARILYN CLAYTON Nurse Practitioner: Family 09/07/2017-Current PHONE: Unknown [facility] Current PHONE: Unknown DR [facility] 03/14/2016-Current PHONE: [phone] Guidelines Source: [place]le Srinivas [place] Guidelines Date: 07/12/2018 Care Coordination: Receiving mental health services with [facility].\T\nbsp; Please contact [facility] with mental health concerns.\T\nbsp; Demian/Jeremias Katebetty: [phone]\T\ nbsp; Alexandru: [phone]. Care History Social 03/18/2016 [facility] ENCOURAGE PATIENT TO USE PCP OR WALK-IN CLINIC FOR NON-EMERGENT PROBLEMS. SHE CAN CALL BENZENE WASHER FOR HELP OR QUESTIONS. [phone]. Medical/Surgical 09/07/2017 [facility] - Patient is currently established with [facility]. If patient is seen in the ED during business hours. Please contact CHWs at [facility] at [phone]. Care Recommendation: This patient has had 5 or more Emergency Department visits in the last 12 months.\T\nbsp; Patient requires education on the scope and purpose of the ED as an acute care provider not a Primary Care Provider and should not be utilized for chronic conditions.\T\nbsp; If patient returns to ED please contact Community Health WorkerWendy at [phone]. These are guidelines and the provider should exercise clinical judgment when providing care. [facility] (12 MO.) [facility] NOTE: Visits indicate total known visits. ED/UCC VISIT TRACKING (12 MO.) 07/28/2018 12:47 [facility] [place] TYPE: Emergency COMPLAINT: - CHEST PAIN 07/08/2018 15:50 [facility] [place] TYPE: Emergency COMPLAINT: - BURNING SENSATION IN LUNGS DIAGNOSES: - Allergy status to analgesic agent status - terminal operations manager (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 insulin - Bipolar disorder, unspecified - Hypothyroidism, unspecified - Acquired absence of both cervix and uterus - Allergy status to other drugs, medicaments and biological substances status - Contact with and (suspected) exposure to other hazardous, chiefly nonmedicinal, chemicals - Acquired absence of other specified parts of digestive tract - Personal history of other malignant neoplasm of large intestine - penitentiary (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 aspirin - Personal history of malignant neoplasm of bladder - Contact with and (suspected) exposure to other hazardous, chiefly nonmedicinal, chemicals - Unspecified asthma, uncomplicated - Nicotine dependence, unspecified, uncomplicated - Nicotine dependence, cigarettes, uncomplicated - Type 2 diabetes mellitus without complications - Other correction (current) 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 03/08/2018 18:40 [facility] [place] TYPE: Emergency COMPLAINT: - ALTERED MENTAL STATUS DIAGNOSES: - Bipolar disorder, unspecified - Unspecified asthma, uncomplicated - Type 2 diabetes mellitus without complications - Presence of coronary angioplasty implant and graft - Personal history of malignant neoplasm of bladder - Other correction (current) 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 - Extrapyramidal and movement disorder, unspecified - penitentiary (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 insulin - Nicotine dependence, unspecified, uncomplicated - Allergy status to narcotic agent status - terminal operations manager (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 aspirin - Gastro-esophageal reflux disease without esophagitis - Type 2 diabetes mellitus with diabetic neuropathy, unspecified - Allergy status to other drugs, medicaments and biological substances status - Hypothyroidism, unspecified 03/06/2018 22:19 [facility] [place] TYPE: Emergency COMPLAINT: - SUICIDAL/HEAD INJURY/DIZZINESS DIAGNOSES: - Allergy status to narcotic agent status - terminal operations manager (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 insulin - Unspecified asthma, uncomplicated - Bipolar disorder, unspecified - Type 2 diabetes mellitus with diabetic neuropathy, unspecified - Hypothyroidism, unspecified - Other correction (current) 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 - Suicidal ideations - Allergy status to other drugs, medicaments and biological substances status - Gastro-esophageal reflux disease without esophagitis - Unspecified injury of head, initial encounter - Unspecified fall, initial encounter - penitentiary (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 aspirin - Old myocardial infarction - Personal history of malignant neoplasm of bladder - Acquired absence of other specified parts of digestive tract - Nicotine dependence, unspecified, uncomplicated 02/07/2018 00:22 [facility] [place] TYPE: Emergency COMPLAINT: - DIZZY/POSS BLODD SUGAR PROBLEM DIAGNOSES: - Gastro-esophageal reflux disease without esophagitis - terminal operations manager (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 insulin - Allergy status to narcotic agent status - Hypothyroidism, unspecified - Allergy status to other drugs, medicaments and biological substances status - Type 2 diabetes mellitus with hyperglycemia - Other correction (current) 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 - terminal operations manager (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 aspirin - Nicotine dependence, unspecified, uncomplicated 01/29/2018 18:00 [facility] [place] TYPE: Emergency COMPLAINT: - HIGH BLOOD SUGAR DIAGNOSES: - Allergy status to narcotic agent status - penitentiary (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 oral hypoglycemic drugs - Migraine, unspecified, not intractable, without status migrainosus - Other chest pain - Unspecified fall, initial encounter - penitentiary (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 aspirin - Allergy status to other drugs, medicaments and biological substances status - Other correction (current) 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 - [...] unspecified, not intractable, without status migrainosus - terminal operations manager (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 aspirin - Paresthesia of skin - Allergy status to other drugs, medicaments and biological substances status - Hypothyroidism, unspecified - Allergy status to narcotic agent status - Nicotine dependence, unspecified, uncomplicated INPATIENT VISIT TRACKING (12 MO.) No inpatient visits to display in this time frame [email or web address]
[2018-07-28] MEDS ORDERED: NORCO 7.5-3251 EACH PO (15:01)
--- NOTE | 2018-07-28 20:39 | EKG ---
[facility] [address] [place] [address] Signed Normal sinus rhythm Normal ECG When compared with ECG of 29-JAN-2018 19:40, No significant change was found Confirmed by JOVANY MAYES MD ([id number]) on 07/28/2018 8:39:03 PM Electronically Signed By: JOVANY MAYES MD 07/28/18 2039 PATIENT NAME: TIANNAGROVER AMINTA Electrocardiogram DATE OF : 60 PHYSICIAN: JOVANY MAYES MD REPORT #: [id number] REPORT IS CONFIDENTIAL AND NOT TO BE RELEASED WITHOUT AUTHORIZATION
== END 2018-07-28 15:15 | disposition home or self-care (01) ==
LOC: ED 12:46
DX: R07.89 Other chest pain (principal); I25.2 Old myocardial infarction; E03.9 Hypothyroidism, unspecified; J45.909 Unspecified asthma, uncomplicated; E11.40 Type 2 diabetes mellitus with diabetic neuropathy, unspecified; F31.9 Bipolar disorder, unspecified; F17.200 Nicotine dependence, unspecified, uncomplicated; Z90.710 Acquired absence of both cervix and uterus; Z90.49 Acquired absence of other specified parts of digestive tract; Z95.5 Presence of coronary angioplasty implant and graft; Z88.8 Allergy status to other drugs, medicaments and biological substances; Z79.899 Other long term (current) 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; Z79.82 Long term (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 aspirin; Z79.84 Long term (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 oral hypoglycemic drugs
CPT/HCPCS: 71046; 85025; 93005; 93010; 96374; 96375; 99285-25; J1170; J1885

== ENCOUNTER 2018-12-05 22:49 | Emergency (ER) | payer MEDICARE, MEDICAID ==
[~2018-12-05] VITALS: Ht 157.5 cm; Wt 88.6 kg
--- OUTSIDE RECORDS SUMMARY | ~2018-12-05 | XMS | Encounter Summary ---
Demographics + + + | Address | [address] | | | [place] [address] | + + + | Home Phone | | + + + | Preferred Language | Unknown | + + + | Marital Status | Single | + + + | Rastafarian Affiliation | Unknown | + + + | Race | White | + + + | Ethnic Group | Not or | + + + Author + + + | Author | [facility] | + + + | Organization | [facility] | + + + | Address | Unknown | + + + | Phone | Unavailable | + + + Support + + + + + | Name | Relationship | Address | Phone | + + + + + | Lolis Rodriguez | [address] | | | | | [address] | | | | | [address] | | + + + + + Care Team Providers + +------+ + | Care It Applications Developer Name | Role | Phone | + +------+ + | James Boss MD | PCP | Unavailable | + +------+ + Encounter Details +--------+ + + + + | Date | Type | Department | Care Team | Description | +--------+ + + + + | 10/15/ | Results | Registration [id number] | | | | 1995 | Only | [address] | | | | | | [address] Mailcode: [id number] | | | | | | [place], [place] | | | | | | [address] | | | | | | [phone] | | | +--------+ + + + [...] Not on filedocumented as of this encounter Procedures + +--------+ + + + | Procedure Name | Priori | Date/Time | Associated Diagnosis | Comments | | | ty | | | | + +--------+ + + + | PULMONARY FUNCTION | Routin | 1995 | | Results for this | | TESTS | e | 4:08 PM | | procedure are in the | | | | PDT | | results section. | + +--------+ + + + | CHEMISTRY TESTS 4 | Routin | 1995 | | Results for this | | | e | 1:35 PM | | procedure are in the | | | | PDT | | results section. | + +--------+ + + + | THERAPEUTIC DRUG | Routin | 1995 | | Results for this | | TESTS 2 | e | 1:35 PM | | procedure are in the | | | | PDT | | results section. | + +--------+ + + + | IMMUNOLOGY TESTS 3 | Routin | 1995 | | Results for this | | | e | 1:35 PM | | procedure are in the | | | | PDT | | results section. | + +--------+ + + + | CBC TESTS 2 | Routin | 1995 | | Results for this | | | e | 1:35 PM | | procedure are in the | | | | PDT | | results section. | + +--------+ + + + | CHEMISTRY TESTS 2 | Routin | 1995 | | Results for this | | | e | 1:35 PM | | procedure are in the | | | | PDT | | results section. | + +--------+ + + + | MISCELLANEOUS | Routin | 1995 | | Results for this | | CHEMISTRY TESTS | e | 1:35 PM | | procedure are in the | | | | PDT | | results section. | + +--------+ + + + | MISCELLANEOUS | Routin | 1995 | | Results for this | | HEMATOLOGY TESTS | e | 1:35 PM | | procedure are in the | | | | PDT | | results section. | + +--------+ + + + documented in this encounter Results PULMONARY FUNCTION TESTS (1995 4:08 PM PDT) + + + + + + | Component | Value | Ref Range | Performed | Pathologist | | | | | At | Signature | + + + + + + | FVC | 3.44 | L | | | | MEASURED | | | | | + + + + + + | FVC % PRED | 102. | % | | | + + + + + + | FEV1 | 2.51 | L/S | | | | MEASURED | | | | | + + + + + + | FEV1 % PRED | 86. | % | | | + + + + + + | FEV1/FVC | 73. | % | | | | MEASURED | | | | | + + + + + + | FEF() | 1.7 | L/S | | | + + + + + + | FEF() | 49. | % | | | | % PRED | | | | | + + + + + + | REST SAT | 98. | % | | | + + + + + + | MECHOLYL | +VE | % | | | | (LAB) | | | | | + + + + + + | TLC | 4.79 | L | | | | MEASURED | | | | | + + + + + + | TLC % PRED | 101. | % | | | + + + + + + | FRC | 2.28 | L | | | | MEASURED | | | | | + + + + + + | FRC % PRED | 88. | % | | | + + + + + + | RV MEASURED | 1.59 | L | | | + + + + + + | RV % PRED | 111. | % | | | + + + + + + | DLCO | 28.54 | ML/MIN/MM HG | | | | MEASURED | | | | | + + + + + + | DLCO % PRED | 106. | % | | | + + + + + + | DLCO/VA | 6.89 | ML/MIN/MM HG/L | | | | MEASURED | | | | | + + + + + + | DLCO/VA % | 121. | % | | | | PRED | | | | | + + + + + + | PF COMMENT | MECHOLYL +VE AT | % | | | | 1 | 1.25MG/ML | | | | + + + + + + + + | Specimen | + + | | + + + + + + + | Performing | Address | City/State/Zipcode | Phone Number | | Organization | | | | + + + + + | [facility] | [address] | [place] [address] | | | PATHOLOGY | [address] | | | + + + + + IMMUNOLOGY TESTS 3 (1995 1:35 PM PDT) + + + + + + | Component | Value | Ref Range | Performed | Pathologist | | | | | At | Signature | + + + + + + | ANIMAL MIX | 4+ | IgE(kU/L) | | | | IGE | | | | | + + + + + + | DUSTMITES | 3+ | IgE(kU/L) | | | | DF/DP IGE | | | | | + + + + + + | GRASS MIX | NEG | IgE(kU/L) | | | | IGE | | | | | + + + + + + | MOLD MIX | NEG | IgE(kU/L) | | | | IGE | | | | | + + + + + + | TREE MIX | NEG | IgE(kU/L) | | | | IGE | | | | | + + + + + + | WEED MIX | 2+ | IgE(kU/L) | | | | IGE | | | | | + + + + + + | A. | NEG | # | | | | FUMIGATUS | | LINES/INTENSIT | | | | (B1) | | | | | + + + + + + | A. | NEG | # | | | | FUMIGATUS | | LINES/INTENSIT | | | | (B2) | | | | | + + + + + + | ALTERNARIA | NEG | # | | | | #1 | | LINES/INTENSIT | | | + + + + + + | ALTERNARIA | NEG | # | | | | #2 | | LINES/INTENSIT | | | + + + + + + | BRENNA MIX | NEG | # | | | | #2 | | LINES/INTENSIT | | | + + + + + + | CANDIDINE | NEG | # | | | | | | LINES/INTENSIT | | | + + + + + + | CLADOSPORIU | NEG | # | | | | M SP. | | LINES/INTENSIT | | | + + + + + + | Gerardo MCKEON | NEG | # | | | | | | LINES/INTENSIT | | | + + + + + + | PENICILLIUM | NEG | # | | | | MIX | | LINES/INTENSIT | | | + + + + + + | A. | NEG | # | | | | PULLULANS | | LINES/INTENSIT | | | + + + + + + | T. | NEG | # | | | | POLYSPORA | | LINES/INTENSIT | | | + + + + + + | T. VULGARIS | NEG | # | | | | | | LINES/INTENSIT | | | + + + + + + | TOTAL SERUM | 214. (H) | U/mL | | | | IGE | | | | | + + + + + + + + | Specimen | + + | | + + + + + + + | Performing | Address | City/State/Zipcode | Phone Number | | Organization | | | | + + + + + | [facility] | [address] | [place] [address] | | | PATHOLOGY | [address] | | | + + + + + CHEMISTRY TESTS 2 (1995 1:35 PM PDT) + + + + + + | Component | Value | Ref Range | Performed | Pathologist | | | | | At | Signature | + + + + + + | CHOLESTEROL | 257. (H) | mg/dL | | | | (LAB) | | | | | + + + + + + + + | Specimen | + + | | + + + + + + + | Performing | Address | City/State/Zipcode | Phone Number | | Organization | | | | + + + + + | [facility] | [address] | [place] [address] | | | PATHOLOGY | [address] | | | + + + + + CHEMISTRY TESTS 4 (1995 1:35 PM PDT) + + + + + + | Component | Value | Ref Range | Performed | Pathologist | | | | | At | Signature | + + + + + + | SODIUM, | 139. | mmol/l | | | | PLASMA | | | | | | (LAB) | | | | | + + + + + + | POTASSIUM, | 4.3 | mmol/l | | | | PLASMA | | | | | | (LAB) | | | | | + + + + + + | CHLORIDE, | 105. | mmol/l | | | | PLASMA | | | | | | (LAB) | | | | | + + + + + + | TOTAL CO2, | 26. | mmol/l | | | | PLASMA | | | | | | (LAB) | | | | | + + + + + + | BUN, PLASMA | 7. | mg/dL | | | | (LAB) | | | | | + + + + + + | CREATININE | 0.8 | mg/dL | | | | PLASMA | | | | | | (LAB) | | | | | + + + + + + | GLUCOSE, | 89. | mg/dL | | | | PLASMA | | | | | | (LAB) | | | | | + + + + + + | CALCIUM, | 9.7 | mg/dL | | | | PLASMA | | | | | | (LAB) | | | | | + + + + + + | MAGNESIUM,P | 2.2 | mg/dL | | | | LASMA | | | | | + + + + + + | PHOSPHORUS, | 4.2 | mg/dL | | | | PLASMA | | | | | | (LAB) | | | | | + + + + + + | URIC ACID, | 3.4 | mg/dL | | | | PLASMA | | | | | | (LAB) | | | | | + + + + + + | AST(SGOT) | 15. | U/L | | | + + + + + + | ALT (SGPT) | 22. | U/L | | | + + + + + + | ALK PHOS | 72. | U/L | | | + + + + + + | LD TOTAL, | 133. | U/L | | | | PLASMA | | | | | + + + + + + | BILIRUBIN | 0.1 | mg/dL | | | | DIRECT | | | | | + + + + + + | BILIRUBIN | 0.4 | mg/dL | | | | TOTAL | | | | | + + + + + + | TOTAL | 6.8 | GM/DL | | | | PROTEIN, | | | | | | PLASMA | | | | | | (LAB) | | | | | + + + + + + | ALBUMIN, | 4.5 | GM/DL | | | | PLASMA | | | | | | (LAB) | | | | | + + + + + + + + | Specimen | + + | | + + + + + + + | Performing | Address | City/State/Zipcode | Phone Number | | Organization | | | | + + + + + | [facility] | [address] | [place] [address] | | | PATHOLOGY | [address] | | | + + + + + THERAPEUTIC DRUG TESTS 2 (1995 1:35 PM PDT) + +-------+ + + + | Component | Value | Ref Range | Performed | Pathologist | | | | | At | Signature | + +-------+ + + + | CARBON | <1.0 | % | | | | MONOXIDE | | | | | | CONCENTRATI | | | | | | ON | | | | | + +-------+ + + + + + | Specimen | + + | | + + + + + + + | Performing | Address | City/State/Zipcode | Phone Number | | Organization | | | | + + + + + | [facility] | [address] | [place] [address] | | | PATHOLOGY | [address] | | | + + + + + MISCELLANEOUS CHEMISTRY TESTS (1995 1:35 PM PDT) + + + + + + | Component | Value | Ref Range | Performed | Pathologist | | | | | At | Signature | + + + + + + | IGA SERUM | 87. | mg/dL | | | + + + + + + | IGG SERUM | 508. (L) | mg/dL | | | + + + + + + | ALPHA 1 | 156. | mg/dL | | | | ANTITRY SER | | | | | + + + + + + + + | Specimen | + + | | + + + + + + + | Performing | Address | City/State/Zipcode | Phone Number | | Organization | | | | + + + + + | [facility] | [address] | [place] [address] | | | PATHOLOGY | [address] | | | + + + + + CBC TESTS 2 (1995 1:35 PM PDT) + + + + + + | Component | Value | Ref Range | Performed | Pathologist | | | | | At | Signature | + + + + + + | WHITE CELL | 11.3 (H) | K/CU MM | | | | COUNT | | | | | + + + + + + | RED CELL | 4.71 | M/CU MM | | | | COUNT | | | | | + + + + + + | HEMOGLOBIN | 15.1 (H) | GM/DL | | | + + + + + + | HEMATOCRIT | 43.8 | % | | | + + + + + + | MCV | 92.9 | FL | | | + + + + + + | MCH | 32. | PG | | | + + + + + + | MCHC | 34.4 (H) | GM/DL | | | + + + + + + | RDW | 12.6 | % | | | + + + + + + | PLATELET | 338. | K/CU MM | | | | COUNT | | | | | + + + + + + | MPV | 9. | FL | | | + + + + + + | NEUTROPHIL | 59. | % | | | | % | | | | | + + + + + + | NEUTROPHIL | FINAL DIFF, SMEAR | % | | | | % | REVIEWED | | | | + + + + + + | LYMPHOCYTE | 30. | % | | | | % | | | | | + + + + + + | MONOCYTE % | 5. | % | | | + + + + + + | EOS % | 4. | % | | | + + + + + + | BASO % | 2. | % | | | + + + + + + | NEUTROPHIL | 6.7 | K/CU MM | | | | # | | | | | + + + + + + | LYMPHOCYTE | 3.4 | K/CU MM | | | | # | | | | | + + + + + + | MONOCYTE # | 0.6 | K/CU MM | | | + + + + + + | EOS # | 0.4 | K/CU MM | | | + + + + + + | BASO # | 0.2 | K/CU MM | | | + + + + + + | SEDIMENTATI | 6. | MM/HR | | | | ON RATE | | | | | + + + + + + + + | Specimen | + + | | + + + + + + + | Performing | Address | City/State/Zipcode | Phone Number | | Organization | | | | + + + + + | [facility] | [address] | [place] [address] | | | PATHOLOGY | [address] | | | + + + + + MISCELLANEOUS HEMATOLOGY TESTS (1995 1:35 PM PDT) + + + + + + | Component | Value | Ref Range | Performed | Pathologist | | | | | At | Signature | + + + + + + | EOSINOPHIL | 429. | CU MM | | | | COUNT | | | | | + + + + + + + + | Specimen | + + | | + + + + + + + | Performing | Address | City/State/Zipcode | Phone Number | | Organization | | | | + + + + + | [facility] | [address] | [place] [address] | | | PATHOLOGY | [address] | | | + + + + + documented in this encounter Visit Diagnoses Not on filedocumented in this encounter"
--- OUTSIDE RECORDS SUMMARY | ~2018-12-05 | XMS | Encounter Summary ---
Demographics + + + | Address | [address] | | | [place] [address] | + + + | Home Phone | | + + + | Preferred Language | Unknown | + + + | Marital Status | Single | + + + | Confucianist Affiliation | Unknown | + + + [...] [address] | | | | | [address], [place] | | | | | [address] | | + + + + + Care Team Providers + +------+ + | Care Financial Compliance Officer Name | Role | Phone | + [...] BAEZ, | | | | | | M.ShiRETROGRADE | | | | | | CHOLANGIOGRAM: | | | | | | 08/22/99 Dictated | | | | | | 09/02/99 This | | | | | | examination was | | | | | [...] the | | | | | | Gastroneurologist. | | | | | | The extrahepatic | | | | | | biliary tree has a | | | | | | normalappearance as do | | | | | | the opacified | | | | | | intrahepatic biliary | | | | | | radicles. Nostricture, | | | | | | mass or filling defect | | | [...] | | + +---------+ + + | [facility]PART[facility] OF | | | | | RADIOLOGY | | | | + +---------+ + + documented in this encounter Visit Diagnoses Not on filedocumented in this encounter"
--- OUTSIDE RECORDS SUMMARY | ~2018-12-05 | XMS | Clinical Summary ---
Demographics + + + | Address | [address] | | | [place] [address] | + + + | Home Phone | | + + + | Preferred Language | Unknown | + + + | Marital Status | Single | + + + | Jew Affiliation | Unknown | + + + | Race | White | + + + | Ethnic Group | Not or | + + + Author + + + | Author | [facility] | + + + | Organization | [facility] | + + + | Address | Unknown | + + + | Phone | Unavailable | + + + Support + + + + + | Name | Relationship | Address | Phone | + + + + + | Lolis Rodriguez | SC[address]TY | [address] | | | | | [place] | | | | | [address] | | + + + + + Care Team Providers + +------+ + | Care Network Support Specialist Name | Role | Phone | + +------+ + | James Horne MD | PCP | | + +------+ + Source Comments [facility] is fully live on both [facility] Allergies + + + + + + | Active Allergy | Reactions | Severity | Noted | Comments | | | | | Date | | + + + + + + | Celecoxib | Dyspnea, Tongue | High | 07/27/19 | | | | Swelling | | 16 | | + + + + + + | Diclofenac | Dyspnea | High | 09/02/19 | | | | | | 14 | | + + + + + + | Duloxetine Hcl | Suicidal Ideation | Low | 07/27/19 | Suicidal thoughts | | | | | 16 | | + + + + + + | Epinephrine | Tachycardia | | 09/02/19 | | | | | | 14 | | + + + + + + | Prochlorperazine | Unknown | | 09/02/19 | | | | | | 14 | | + + + + + + | Rizatriptan | Anaphylaxis | High | 01/07/20 | "Swelling of | | | | | 14 | throat & asthma | | | | | | attack" | + + + + + + | Solifenacin | Anaphylaxis | High | 03/21/19 | | | | | | 15 | | + + + + + + | Tramadol | Unknown | | 09/02/19 | | | | | | 14 | | + + + + + + Medications + + + +---------+------+------+-------+ | Medication | Sig | Dispensed | Refills | Star | End | Statu | | | | | | t | Date | s | | | | | | Date | | | + + + +---------+------+------+-------+ | | 2 puffs two times | | 0 | 05/0 | | Activ | | fluticasone-salmeter | daily. | | | 06/12 | | e | | ol 250-50 mcg/dose | | | | 17 | | | | inhalation blister | | | | | | | | with device | | | | | | | + + + +---------+------+------+-------+ | insulin lispro | three times daily as | | 0 | 05/0 | | Activ | | (Human) 100 unit/mL | needed. | | | 4/20 | | e | | subcutaneous insulin | | | | 17 | | | | pen | | | | | | | + + + +---------+------+------+-------+ | levothyroxine 75 | 75 mcg once daily. | | 0 | 05/0 | | Activ | | mcg oral tablet | | | | 4/20 | | e | | | | | | 17 | | | + + + +---------+------+------+-------+ | albuterol 0.083% | Inhale as needed. | | 0 | 06/0 | | Activ | | 2.5 mg /3 mL (0.083 | | | | 6/20 | | e | | %) inhalation | | | | 16 | | | | solution for | | | | | | | | nebulization | | | | | | | + + + +---------+------+------+-------+ | albuterol 90 | as needed. | | 0 | 04/1 | | Activ | | mcg/actuation | | | | 1/20 | | e | | inhalation HFA | | | | 16 | | | | aerosol inhaler | | | | | | | + + + +---------+------+------+-------+ | | Inhale as needed. | | 0 | 03/0 | | Activ | | ipratropium-albutero | | | | 8/20 | | e | | l 0.5 mg-3 mg(2.5 mg | | | | 16 | | | | base)/3 mL | | | | | | | | inhalation solution | | | | | | | | for nebulization | | | | | | | + + + +---------+------+------+-------+ | aspirin EC 81 mg | Take 81 mg by mouth | | 0 | 01/1 | | Activ | | oral tablet,delayed | once daily. | | | 0/20 | | e | | release (DR/EC) | | | | 15 | | | + + + +---------+------+------+-------+ | atorvastatin 40 mg | Take 40 mg by mouth | | 0 | 03/0 | | Activ | | oral tablet | once daily. | | | 8/20 | | e | | | | | | 16 | | | + + + +---------+------+------+-------+ | dicyclomine 20 mg | 20 mg once daily. | | 0 | 06/1 | | Activ | | oral tablet | | | | 5/20 | | e | | | | | | 16 | | | + + + +---------+------+------+-------+ | erythromycin 5 | two times daily. | | 0 | 08/2 | | Activ | | mg/gram (0.5 %) | | | | 1/20 | | e | | ophthalmic ointment | | | | 16 | | | + + + +---------+------+------+-------+ | ibuprofen 800 mg | 800 mg three times | | 0 | 03/0 | | Activ | | oral tablet | daily as needed. | | | 8/20 | | e | | | | | | 16 | | | + + + +---------+------+------+-------+ | insulin detemir | Inject 74 Units | | 0 | 03/0 | | Activ | | 100 unit/mL (3 mL) | under the skin | | | 8/20 | | e | | subcutaneous insulin | (SUBC) once daily. | | | 16 | | | | pen | | | | | | | + + + +---------+------+------+-------+ | insulin needles, | Use prn | | 0 | 10/2 | | Activ | | Disposable, (BD | | | | 05/12 | | e | | ULTRA-FINE ROGEROI PEN | | | | 15 | | | | NEEDLE 4 MM X 32 G) | | | | | | | | 32 gauge x 5/32" | | | | | | | | ndle | | | | | | | + + + +---------+------+------+-------+ | Insulin | by Does not apply | | 0 | 05/0 | | Activ | | Syringe-Needle U-100 | route. | | | 5/20 | | e | | 1/2 mL 30 gauge x | | | | 15 | | | | 5/16 syringe | | | | | | | + + + +---------+------+------+-------+ | magnesium | Take by mouth as | | 0 | 01/1 | | Activ | | hydroxide 400 mg/5 | needed. | | | 0/20 | | e | | mL oral suspension | | | | 15 | | | + + + +---------+------+------+-------+ | metFORMIN SR 500 | 2,000 mg two times | | 0 | 08/3 | | Activ | | mg oral tablet | daily. | | | 120 | | e | | extended release 24 | | | | 16 | | | | hr | | | | | | | + + + +---------+------+------+-------+ | metoprolol | 25 mg two times | | 0 | 03/0 | | Activ | | succinate 25 mg oral | daily. | | | 820 | | e | | tablet extended | | | | 16 | | | | release 24 hr | | | | | | | + + + +---------+------+------+-------+ | mometasone 50 | Instill in nose as | | 0 | 03/0 | | Activ | | mcg/actuation nasal | needed. | | | 8/20 | | e | | spray,non-aerosol | | | | 16 | | | + + + +---------+------+------+-------+ | multivitamin oral | Take by mouth once | | 0 | | | Activ | | capsule | daily. | | | | | e | + + + +---------+------+------+-------+ | | Instill in ear as | | 0 | 04/1 | | Activ | | shorqnci-tqymwumis-b | needed. | | | 1/20 | | e | | ydrocortisone | | | | 16 | | | | 3.5-10,000-1 | | | | | | | | mg/mL-unit/mL-% otic | | | | | | | | solution | | | | | | | + + + +---------+------+------+-------+ | nitroglycerin 0.4 | Place under tongue | | 0 | 12/1 | | Activ | | mg sublingual | as needed. | | | 1/20 | | e | | tablet, sublingual | | | | 14 | | | + + + +---------+------+------+-------+ | pramipexole 0.25 | 3 tablets once daily | | 0 | 03/0 | | Activ | | mg oral tablet | at bedtime. | | | 820 | | e | | | | | | 16 | | | + + + +---------+------+------+-------+ | promethazine 50 mg | Take 50 mg by mouth | | 0 | 03/0 | | Activ | | oral tablet | as needed. | | | 820 | | e | | | | | | 16 | | | + + + +---------+------+------+-------+ | sertraline 100 mg | 200 mg once daily at | | 0 | 03/0 | | Activ | | oral tablet | bedtime. | | | 820 | | e | | | | | | 16 | | | + + + +---------+------+------+-------+ | tiotropium 18 mcg | Inhale once daily as | | 0 | 03/0 | | Activ | | inhalation capsule, | needed. | | | 8/20 | | e | | w/inhalation device | | | | 16 | | | + + + +---------+------+------+-------+ | GABAPENTIN 100 mg | TAKE ONE CAPSULE BY | 270 | 3 | 07/25 | | Activ | | oral capsule | MOUTH THREE TIMES | capsule | | 8/20 | | e | | | DAILY | | | 17 | | | + + + +---------+------+------+-------+ Active Problems + + + | Problem | Noted Date | + + + | Abdominal pain, generalized | 09/01/2013 | + + + | Osteoarthritis | 09/01/2013 | + + + + + | Overview: ICD10 | + + + + + | Diverticulosis of large intestine | 09/01/2013 | + + + + + | Overview: ICD10 | + + + + + | History of colonic polyps | 09/01/2013 | + + + + + | Overview: ICD10 | + + + + + | Other postprocedural status(V45.89) | 09/01/2013 | + + + | Type II or unspecified type diabetes mellitus without mention of | 09/01/2013 | | complication, not stated as uncontrolled | | + + + Family History + + +------+ + | Medical History | Relation | Name | Comments | + + +------+ + | Diabetes | Other | | | + + +------+ + | Breast Cancer | Sister | | | + + +------+ + | Ovarian Cancer | Sister | | | + + +------+ + + +------+--------+ + | Relation | Name | Status | Comments | + +------+--------+ + | Other | | | | + +------+--------+ + | Sister | | | | + +------+--------+ + Social History + +-------+ +--------+------+ | Tobacco Use | Types | Packs/Day | Years | Date | | | | | Used | | + +-------+ +--------+------+ | Former Smoker | | | | | + +-------+ +--------+------+ + + +---------+ + | Alcohol Use | Drinks/Week | oz/Week | Comments | + + +---------+ + | No | | | | + + +---------+ + + + + | Sex Assigned at [...] recent travel history available. | + + Last Filed Vital Signs + + + + + | Vital Sign | Reading | Time Taken | Comments | + + + + + | Blood Pressure | 122/76 | 08/18/2016 3:35 PM | | | | | PDT | | + + + + + | Pulse | 81 | 08/18/2016 3:35 PM | | | | | PDT | | + + + + + | Temperature | 36.9 C (98.5 F) | 08/18/2016 3:35 PM | | | | | PDT | | + + + + + | Respiratory Rate | 16 | 03/29/2015 3:35 PM | | | | | PST | | + + + + + | Oxygen Saturation | 95% | 08/18/2016 3:35 PM | | | | | PDT | | + + + + + | Inhaled Oxygen | - | - | | | Concentration | | | | + + + + + | Weight | 89.7 kg (197 lb 11.2 | 08/18/2016 3:35 PM | | | | oz) | PDT | | + + + + + | Height | 158.8 cm (5' 2.5") | 08/18/2016 3:35 PM | | | | | PDT | | + + + + + | Body Mass Index | 35.58 | 08/18/2016 3:35 PM | | | | | PDT | | + + + + + Plan of Treatment + + + + + | Health Maintenance | Due Date | Last Done | Comments | + + + + + | Mammogram | | | | | | 1 | | | + + + + + | Influenza (Flu) | | 11/27/2014, 11/23/2013, | | | vaccination (#1) | 9 | 01/03/2013 | | + + + + + | Pneumococcal | Completed | 01/14/2013 | | | vaccination | | | | + + + + + Results Not on filefrom Last 3 Months Insurance + +--------+ +--------+ + +--------+ | Payer | Benefi | Subscriber | Effect | Phone | Address | Type | | | t Plan | ID | etta | | | | | | / | | Dates | | | | | | Group | | | | | | + +--------+ +--------+ + +--------+ | MEDICARE | MEDICA | xxxxxxxxxx | 10/25/19 | [phone] | [address] | Medica | | | RE A & | | 01-Pre | 1 | [phone] | [address] | | | B | | sent | | [place] | | | | | | | | [phone] | | + +--------+ +--------+ + +--------+ + +--------+ +--------+ + + | Guarantor Name | Accoun | Relation to | Date | Phone | Billing Address | | | t Type | Patient | of | | | | | | | | | | + +--------+ +--------+ + + | Laury Crockett | Person | Self [birth year] | [address] | | | al/Fam | | 1961 | [phone] | [place] | | | de | | | [address] (Home) | [address] | + +--------+ +--------+ + +
--- OUTSIDE RECORDS SUMMARY | ~2018-12-05 | XMS | Encounter Summary ---
Demographics + + + | Address | [address] | | | [place] [address] | + + + | Home Phone | | + + + | Preferred Language | Unknown | + + + | Marital Status | Single | + + + | Gnosticist Affiliation | Unknown | + + + | Race | White | + + + | Ethnic Group | Not or | + + + Author + + + | Author | [facility] | + + + | Organization | [facility] | + + + | Address | Unknown | + + + | Phone | Unavailable | + + + Support + + + + + | Name | Relationship | Address | Phone | + + + + + | Lolis Rodriguez | SC[address] | [address] | | | | | [place] | | | | | [address] | | + + + + + Care Team Providers + +------+ + | Care Tissue Packer Name | Role | Phone | + +------+ + | Mahendra Cash MD | PCP | | + +------+ + Reason for Visit + + + | Reason | Comments | + + + | Central Line Care | Port Flush | + + + Other (Routine) +--------+--------+ + + + + | Status | Reason | Specialty | Diagnoses / | Referred By | Referred To | | | | | Procedures | Contact | Contact | +--------+--------+ + + + + | Closed | | Community | Diagnoses | Shreya, | Cho | | | | Oncology | Other | Mahendra Forbes MD | Infusion | | | | | postprocedur | LEGACY | [place] | | | | | al | MEDICAL | [address] | | | | | status(V45.8 | GROUP | [address] | | | | | 9) | [place] | [place], [place] | | | | | Procedures | [address] | [address] | | | | | PORT FLUSH | [address] | Phone: | | | | | LABS | [address] | [phone] | | | | | | [place], [place] | Fax: | | | | | | [address] | [phone] | | | | | | Phone: | | | | | | | [phone] | | | | | | | Fax: | | | | | | | [phone] | | +--------+--------+ + + + + Encounter Details +--------+ + + + + | Date | Type | Department | Care Team | Description | +--------+ + + + + | 07/21/ | [facility] | [facility] | Sree Abdul Nurse | Central Line Care | | 2013 | l Support | [place] [facility] [place] | [address] | ([facility]) | | | Staff | [address] | [address] [place], [place] | | | | | [address] [place], [place] | [address] | | | | | [address] | [phone] | | | | | [phone] | | | | | | | Sree Jain Ma | | | | | | Schedule [place], | | | | | | [place] [address] | | +--------+ + + + + [...] + + documented as of this encounter Last Filed Vital Signs + + + + + | Vital Sign | Reading | Time Taken | Comments | + + + + + | Blood Pressure | 133/62 | 09/12/2013 4:18 PM | | | | | PDT | | + + + + + | Pulse | 90 | 09/12/2013 4:18 PM | | | | | PDT | | + + + + + | Temperature | 37.2 C (98.9 F) | 09/12/2013 4:18 PM | | | | | PDT | | + + + + + | Respiratory Rate | - | - | | + + + + + | Oxygen Saturation | - | - | | + + + + + | Inhaled Oxygen | - | - | | | Concentration | | | | + + + + + | Weight | 90.7 kg (200 lb) | 09/12/2013 4:18 PM | | | | | PDT | | + + + + + | Height | - | - | | + + + + + | Body Mass Index | - | - | | + + + + + documented in this encounter Progress Notes Raya Luna RN - 09/12/2013 5:34 PM Brionna Javed is here today for a port flush. Port located in the right chest. It was accessed, flushed and deaccessed per protocol using a 1 inch access device. Blood return present. Site unremarkable, and no labs were ordered. P atient tolerated procedure without complication. At discharge, alert & oriented x 3. No ac yaw distress, and mood & affect appropriate. Instructed to call the office with any questio ns or concerns. Patient left the office in stable condition, and ambulatory. documented in this encoun ter Plan of Treatment Not on filedocumented as of this encounter Procedures + +--------+ + + + | Procedure Name | Priori | Date/Time | Associated Diagnosis | Comments | | | ty | | | | + +--------+ + + + | NURSING | Routin | 09/12/2013 | Other | | | COMMUNICATION #2 - | e | 5:39 PM | postprocedural | | | [facility] | | PDT | status(V45.89) | | + +--------+ + + + | NURSING | Routin | 09/12/2013 | Other | | | COMMUNICATION #1 - | e | 5:39 PM | postprocedural | | | [facility] | | PDT | status(V45.89) | | + +--------+ + + + documented in this encounter Visit Diagnoses + + | Diagnosis | + + | Other postprocedural status(V45.89) - Primary Other postprocedural status | + + documented in this encounter Administered Medications + +---------+ +-------+------+------+ | Medication Order | MAR | Action | Dose | Rate | Site | | | Action | Date | | | | + +---------+ +-------+------+------+ | NaCl 0.9 % flush 10 mL 10 mL, | New Bag | 09/13/19 | 40 mL | | | | intravenous, NEEDED, Starting | | 14 5:44 | | | | | 09/12/13 at 1739, Until Mon | | PM PDT | | | | | 09/12/13 at 2344, line patency | | | | | | + +---------+ +-------+------+------+ +---+---+ | | | +---+---+ documented in this encounter"
--- OUTSIDE RECORDS SUMMARY | ~2018-12-05 | XMS | Clinical Summary ---
Demographics + + + | Address | [address] | | | [place] [address] | + + + | Home Phone | | + + + | Preferred Language | Unknown | + + + | Marital Status | | + + + | Restorationist Affiliation | Unknown | + + + | Race | Unknown | + + + | Ethnic Group | Unknown | + + + Author + + + | Author | [facility] | | | 10-09-18) | + + + | Organization | [facility] | | | 10-09-18) | + + + | Address | Unknown | + + + | Phone | Unavailable | + + + Care Team Providers + +------+ + | Care Automotive Refinisher Name | Role | Phone | + +------+ + | James Horne MD | PP | | + +------+ + Allergies Not on File Current Medications Not on file Active Problems Not on file Social History + +-------+ +--------+------+ | Tobacco [...] on file | | + + + Plan of Treatment + + + + + | Health Maintenance | Due Date | Last Done | Comments | + + + + + | Cervical Cancer | | | | | Screening (Pap) | 1 | | | + + + + + | Vaccine: Zoster (1 | | | | | of 2) | 1 | | | + + + + + | Vaccine: Influenza | | 11/27/2014 | | | (#1) | 9 | | | + + + + + | Vaccine: | | 10/08/2013, 07/12/2009 | | | Dtap/Tdap/Td (3 - | 4 | | | | Td) | | | | + + + + + Results Not on filefrom Last 3 Months Insurance + +--------+ +------+-------+ + | Payer | Benefi | Subscriber | Type | Phone | Address | | | t Plan | ID | | | | | | / | | | | | | | Group | | | | | + +--------+ +------+-------+ + | MEDICARE | MEDICA | [id number] | | | [address] | | | RE | | | | [place] [address] | | | IP-OP | | | | | + +--------+ +------+-------+ + + +--------+ +--------+ + + | Guarantor Name | Accoun | Relation to | Date | Phone | Billing Address | | | t Type | Patient | of | | | | | | | | | | + +--------+ +--------+ + + | LAURY WYNN | Person | Self [birth year] | Home: | [address] | | | al/Fam | | 1961 | [phone] [address] [place], | | | de | | | [phone] | [place] [address] | + +--------+ +--------+ + +"
--- OUTSIDE RECORDS SUMMARY | ~2018-12-05 | XMS | Encounter Summary ---
Demographics + + + | Address | [address] | | | [place] [address] | + + + | Home Phone | | + + + | Preferred Language | Unknown | + + + | Marital Status | Single | + + + | Orthodoxy Affiliation | Unknown | + + + | Race | Unknown | + + + | Ethnic Group | Unknown | + + + Author + + + | Author | [facility] | | | and [place] | + + + | Organization | [facility] | | | and [place] | + + + | Address | Unknown | + + + | Phone | Unavailable | + + + Support + + +---------+ + | Name | Relationship | Address | Phone | + + +---------+ + | Clair Foreman | ECON | Unknown | | + + +---------+ + Care Team Providers + +------+ + | Care Manager Quality Name | Role | Phone | + +------+ + | Gonzales Rivera NP | PCP | | + +------+ + Reason for Visit +--------+ + | Reason | Comments | +--------+ + | Other | | +--------+ + Encounter Details +--------+ + + + + | Date | Type | Department | Care Team | Description | +--------+ + + + + | 12/01/ | Telephone | [facility] | Rigo Muniz | Other | | 2018 | | ORTHOPEDIC SURGERY | [address] | | | | | [address] | [address] | | | | | [place], [place] | [place] [address] | | | | | [address] | [phone] | | | | | [phone] | | | +--------+ + + + [...] | | | + +---+---+---+ + + + | Sex Assigned at [...]
--- OUTSIDE RECORDS SUMMARY | ~2018-12-05 | XMS | Encounter Summary ---
Demographics + + + | Address | [address] | | | [place] [address] | + + + | Home Phone [...] [address] | | | | | [address] | | | | | [address] | | + + + + + Care Team Providers + +------+ + | Care Tax Credit Leasing Consultant Name | Role | Phone | + [...] | | | postprocedur | LEGACY | [place] | | | | | al | MEDICAL | [address] | | | | | status(V45.8 | GROUP | [address] | | | | | 9) | [place] | [place], [place] | | | | | Procedures | [address] | [address] | | | | | PORT FLUSH | [address] | Phone: | | | | | LABS | [address] | [phone] | | | | | | [place], [place] | Fax: | | | | | | [address] | [phone] | | | | | | Phone: | | | | | | | [phone] | | | | | | | Fax: | | | | | | | [phone] | | +--------+--------+ + + + + Encounter Details +--------+ + + + + | Date | Type | Department | Care Team | Description | +--------+ + + + + | 07/21/ | [facility] | [facility] | Sree Abdul Nurse | Central Line Care | | 2013 | l Support | [place] [facility] [place] | [address] | ([facility]) | | | Staff | [address] | [address] [place], [place] | | | | | [address] [place], [place] | [address] | | | | | [address] | [phone] | | | | | [phone] | | | | | | | Sree Jain Ma | | | | | | Schedule [place], | | | | | | [place] [address] | | +--------+ + + + + [...]
--- OUTSIDE RECORDS SUMMARY | ~2018-12-05 | XMS | Encounter Summary ---
Demographics + + + | Address | [address] | | | [place] [address] | + + + | Home Phone [...] Author + + + | Author | [facility] | + + + | Organization | [facility] | + + + | Address | Unknown | + + + | Phone | Unavailable | + + + Support + + + + + | Name | Relationship | Address | Phone | + + + + + | Lolis Rodriguez | [place]TY | [address] | | | | | [address] | | | | | [address] | | + + + + + Care Team Providers + +------+ + | Care Machine Cutter Name | Role | Phone | + +------+ + | James Horne MD | PCP | | + +------+ + Reason for Visit + + + | Reason | Comments | + + + | Refill Request | | + + + Encounter Details +--------+--------+ + + + | Date | Type | Department | Care Team | Description | +--------+--------+ + + + | 08/19/ | Refill | [facility] | Clair Kay MD | Refill Request | | 2017 | | [facility] | [address] | | | | | [address] | [address] | | | | | [address] | [place], [place] | | | | | [facility] | [address] | | | | | [place], [place] | [phone] | | | | | [address] | | | | | | [phone] | | | +--------+--------+ + + + Social History + +-------+ [...]
--- OUTSIDE RECORDS SUMMARY | ~2018-12-05 | XMS | Encounter Summary ---
Demographics + + + | Address | [address] | | | [place] [address] | + + + | Home Phone | | + + + | Preferred Language | Unknown | + + + | Marital Status | Single | + + + | Bahai Affiliation | Unknown | + + + | Race | White | + + + | Ethnic Group | Not or | + + + Author + + + | Author | [facility] | + + + | Organization | [facility] | + + + | Address | Unknown | + + + | Phone | Unavailable | + + + Support + + + + + | Name | Relationship | Address | Phone | + + + + + | Lolis Rodriguez | SC[address]TY | [address] | | | | | [address] | | | | | [address] | | + + + + + Care Team Providers + +------+ + | Care Equine Dentist Name | Role | Phone | + [...] as of this encounter Progress Notes Interface, Dry Chain Puller In - 08/24/2005 3:03 AM PDTCLINIC DATE: [...] in 6 weeks. James Boss M.D., [facility] / [id number] / [id number] / [id number] / Tdocumented in this encounter Plan of Treatment Not on filedocumented as of this encounter Visit Diagnoses Not on filedocumented in this encounter
--- OUTSIDE RECORDS SUMMARY | ~2018-12-05 | XMS | Encounter Summary ---
Demographics + + + | Address | [address] | | | [place] [address] | + + + | Home Phone | | + + + | Preferred Language | Unknown | + + + | Marital Status | Single | + + + | Islam Affiliation | Unknown | + + + | Race | White | + + + | Ethnic Group | Not or | + + + Author + + + | Author | [facility] | + + + | Organization | [facility] | + + + | Address | Unknown | + + + | Phone | Unavailable | + + + Support + + + + + | Name | Relationship | Address | Phone | + + + + + | Lolis Rodriguez | SCOTTY | [address] | | | | | [address] | | | | | [address] | | + + + + + Care Team Providers + +------+ + | Care Park Interpretive Specialist Name | Role | Phone | [...] [id number] | | | | | | [place], [place] | | | | | | [address] | | | | | | [phone] | | | +--------+ + + + [...] | + + + + + | [facility] | [address] | [place] [address] | | | PATHOLOGY | [address] [...] | + + + + + | [facility] | [address] | [place] [address] | | | PATHOLOGY | [address] [...] | + + + + + | [facility] | [address] | [place] [address] | | | PATHOLOGY | [address] [...] | + + + + + | [facility] | [address] | [place] [address] | | | PATHOLOGY | [address] [...] | + + + + + | [facility] | [address] | [place] [address] | | | PATHOLOGY | [address] [...] | + + + + + | [facility] | [address] | [place] [address] | | | PATHOLOGY | [address] [...] | + + + + + | [facility] | [address] | [place] [address] | | | PATHOLOGY | [address] [...] | + + + + + | [facility] | [address] | [place] [address] | | | PATHOLOGY | [address] | | | + + + + + documented in this encounter Visit Diagnoses Not on filedocumented in this encounter"
--- OUTSIDE RECORDS SUMMARY | ~2018-12-05 | XMS | Encounter Summary ---
Demographics + + + | Address | [address] | | | [place] [address] | + + + | Home Phone [...] Author + + + | Author | [facility] | + + + | Organization | [facility] | + + + | Address | Unknown | + + + | Phone | Unavailable | + + + Support + + + + + | Name | Relationship | Address | Phone | + + + + + | Lolis Rodriguez | SCOTTY | [address] | | | | | [address] | | | | | [address] | | + + + + + Care Team Providers + +------+ + | Care Car Chaser Name | Role | Phone | + [...] Care | | 2014 | Collaborati | [facility] [place] | MD [facility] | | | | ve Order | [address] | GROUP [place] [address] | | | | | [address] [place], [place] | [address] | | | | | [address] | [address] [place], [place] | | | | | [phone] | [address] | | | | | | | [...]
--- OUTSIDE RECORDS SUMMARY | ~2018-12-05 | XMS | Clinical Summary ---
Demographics + + + | Address | [address] | | | [place] [address] | + + + | Home Phone | | + + + | Preferred Language | Unknown | + + + | Marital Status | | + + + | Buddhism Affiliation | Unknown | + + + | Race | Unknown | + + + | Ethnic Group | Unknown | + + + Author + + + | Author | [facility] (Historical as of | | | 10-09-18) | + + + | Organization | [facility] (Historical as of | | | 10-09-18) | + + + | Address | Unknown | + + + | Phone | Unavailable | + + + Care Team Providers + +------+ + | Care Certified Flight Instructor Name | Role | Phone | + [...] +------+-------+ + | MEDICARE | MEDICA | [id number] | | | [address] | | | RE | | | | [place] [address] | | | IP-OP | | | [...] | [birth year] | Home: | [address] | | | al/Fam | | 1961 | [phone] [address] [place], | | | de | | | [address] | [place] [address] | + +--------+ +--------+ + +"
--- OUTSIDE RECORDS SUMMARY | ~2018-12-05 | XMS | Encounter Summary ---
Demographics + + + | Address | [address] | | | [place] [address] | + + + | Home Phone | | + + + | Preferred Language | Unknown | + + + | Marital Status | Single | + + + | Hindu Affiliation | Unknown | + + + | Race | White | + + + | Ethnic Group | Not or | + + + Author + + + | Author | [facility] | + + + | Organization | [facility] | + + + | Address | Unknown | + + + | Phone | Unavailable | + + + Support + + + + + | Name | Relationship | Address | Phone | + + + + + | Lolis Rodriguez | SCOTTY | [address] | | | | | [address] | | | | | [address] | | + + + + + Care Team Providers + +------+ + | Care Law Librarian Name | Role | Phone | + [...] | | genital | [facility] | [address] | | | | | prolapse, | Hospital | [facility] | | | | | unspecified | [address] | [address] | | | | | Procedures | [address] | [place], [place] | | | | | [place] NEW | [address] | [address] | | | | | PATIENT | [place], | Phone: | | | | | [place] | [place] [address] | [phone] | | | | | EST PATIENT | Phone: | Fax: | | | | | [place] | [phone] | [phone] | | | | | | Fax: | | | | | | | [phone] | | +--------+--------+ + + + + Encounter Details +--------+---------+ + + + | Date | Type | Department | Care Team | Description | +--------+---------+ + + + | 08/18/ | [facility] | Clair Kay MD | Pelvic pain (Primary | | 2017 | Visit | [facility] | [address] | Dx); Pain of right | | | | [address] | [address] | hip joint; Mixed | | | | [address] | [place], [place] | incontinence urge | | | | [facility] | [address] | and stress | | | | [place], [place] | [phone] | (male)(female) | | | | [address] | | | | | | [phone] | | | +--------+---------+ + + + [...] to decrease the ne rve sensitivities. 2. [place] - please stop by [employer] on your way out of town to pickup driver "astroglide" for lubrication. 3. Follow up - please make an appointment in 3 months after starting PT. Please sign up for MyChart so we can communicate about your gabapentin dosing. I have included below some information about pelvic muscle pain. Clair Brown MD Box Attacher Division of Urogynecology and Reconstructive Pelvic Surgery Department of Security Installation Technician [facility] Levator Myalgia The muscles along the base [...] activities or seeing a sp orts medicine/ desktop support specialist. & Chronic Pain Levator myalgia can be associated with chronic pain. In certain cases we will recommend a painting machine operator to help with your care. documented in [...] erosion and hematoma which was revised in 2015. Since that time she described 8-1 0/10 [...] on the patient intake questionnaire (scanned into [employer]) and with the patient. The summary is [...] be found in the scanned documents in [employer]. They have also been entered into rele vant carson of the [employer] database. Past Medical History: Diagnosis Date Abdominal pain, right upper quadrant Asthma 1981 Bipolar disorder (HCC) 1998 Chronic fatigue COPD (chronic obstructive pulmonary disease) (HCC) Diabetes (HCC) Disorders of sacrum Diverticulitis Elevated liver enzymes 1999 Esophageal hiatal hernia 1998 Fatty liver Fibromyalgia Gallstones 1994 GERD (gastroesophageal reflux disease) Hemorrhoids Hepatomegaly 1999 Hypertriglyceridemia Hypothyroidism Lower back pain Lumbosacral spondylosis without myelopathy Migraine Myocardial infarct (HCC) Neuralgia, neuritis, and radiculitis, unspecified Opioid type dependence Other and unspecified disc disorder of lumbar region Pain in joint, pelvic region and thigh PUD (peptic ulcer disease) Seasonal allergies Spasm of muscle SVT (supraventricular tachycardia) ([facility]) 1980 Thoracic spondylosis without myelopathy Past Surgical [...] by mouth once daily., Disp: , Rfl: cjywxkeb-hhchbevqx-nriyiolaxonbsd 3.5-10,000-1 mg/mL-unit/mL-% otic solution, Instill in e [...]
--- OUTSIDE RECORDS SUMMARY | ~2018-12-05 | XMS | Encounter Summary ---
Demographics + + + | Address | [address] | | | [place] [address] | + + + | Home Phone | | + + + | Preferred Language | Unknown | + + + | Marital Status | Single | + + + | Adventism Affiliation | Unknown | + + + | Race | White | + + + | Ethnic Group | Not or | + + + Author + + + | Author | [facility] | + + + | Organization | [facility] | + + + | Address | Unknown | + + + | Phone | Unavailable | + + + Support + + + + + | Name | Relationship | Address | Phone | + + + + + | Lolis Rodriguez | SCOTTY | [address] | | | | | [address] | | | | | [address] | | + + + + + Care Team Providers + +------+ + | Care Shoe Lining Fitter Name | Role | Phone | + [...] Care | | 2016 | Support | [facility] [place] | [address] | | | | Staff | [address] | [address] [place], [place] | | | | | [address] [place], [place] | [address] | | | | | [address] | [phone] | | | | | [phone] | | | | | | | Sree Jain Ma | | | | | | Schedule [place], | | | | | | [place] [address] | | +--------+ + + + + [...]
--- OUTSIDE RECORDS SUMMARY | ~2018-12-05 | XMS | Encounter Summary ---
Demographics + + + | Address | [address] | | | [place] [address] | + + + | Home Phone [...] [address] | | | | | [address] | | | | | [address] | | + + + + + Care Team Providers + +------+ + | Care Safety Administrator Name | Role | Phone | + +------+ + | Mahendra Cash MD | PCP | | + +------+ + Encounter Details +--------+ + + + + | Date | Type | Department | Care Team | Description | +--------+ + + + + | 12/08/ | Document-Sc | Health Information | Unknown . | | | 2014 | anned | Services [address] | | | | | | [address] | | | | | | Mailcode: [id number] | | | | | | [facility] | | | | | | [place], [place] | | | | | | [address] | | | | | | [phone] | | | +--------+ + + + [...]
--- OUTSIDE RECORDS SUMMARY | ~2018-12-05 | XMS | Clinical Summary ---
Demographics + + + | Address | [address] | | | [place] [address] | + + + | Home Phone | | + + + | Preferred Language | Unknown | + + + | Marital Status | Single | + + + | Uatsdin Affiliation | Unknown | + + + | Race | Unknown | + + + | Ethnic Group | Unknown | + + + Author + + + | Author | [facility] | | | and Ramakrishnaana | + + + | Organization | [facility] | | | and [place] [...] Team Providers + +------+ + | Care Networking Technology Instructor Name | Role | Phone | + +------+ + | Gonzales Rivera NP | PCP | | + +------+ + Allergies + [...] + + + + | Overview: Overview: [id number] Assessment & Plan: Colonoscopy | | procedure [...] + + | Overview: Overview: | | LA x 5; has stent; last angioplasty May [...] urine | 07/01/2007 | + + + Encounters +--------+ + + + + | Date | Type | Specialty | Care Team | Description | +--------+ + + + + | 12/01/ | Telephone | Orthopedic Surgery | Rigo Muniz | Other | | 2019 | | | JOCELYNE Leung | | +--------+ + + + + from Last 3 Months Family History + +------+ + + | [...] Weight | 83.9 kg (185 lb) | 03/15/2018 1510 PST | + + + + | [...] | | | | | Screening | 6 | | | + + + + [...] + + | Vaccine: Influenza | | 10/30/2017, 11/13/2016, | | | (#1) | 9 | 11/27/2014, Additional history | | | [...] +--------+ +---------+--------+ | MEDICARE | MEDICA | [id number] | 10/25/19 | [phone] | | Medica [...] | Self | [birth year] | [address] | | | al/Fam | | 1961 | [phone] | [address] [place] | | | de | | | 9 (Home) | [address] | + +--------+ +--------+ + + Advance Directives Patient has advance care planning documents on file. For more information, please contact:[facility] [place] [address]
--- OUTSIDE RECORDS SUMMARY | ~2018-12-05 | XMS | Encounter Summary ---
Demographics + + + | Address | [address] | | | [place] [address] | + + + | Home Phone | | + + + | Preferred Language | Unknown | + + + | Marital Status | Single | + + + | Muslim Affiliation | Unknown | + + + | Race | White | + + + | Ethnic Group | Not or | + + + Author + + + | Author | [facility] | + + + | Organization | [facility] | + + + | Address | Unknown | + + + | Phone | Unavailable | + + + Support + + + + + | Name | Relationship | Address | Phone | + + + + + | Lolis Rodriguez | SCOTTY | [address] | | | | | [address] | | | | | [address] | | + + + + + Care Team Providers + +------+ + | Care Medical Claims Specialist Name | Role | Phone | [...] | | | al | MEDICAL | [address] | | | | | status(V45.8 | GROUP | [address] | | | | | 9) | [place] | [place], [place] | | | | | Procedures | [address] | [address] | | | | | [address] | [address] | Phone: | | | | | LABS | [address] | [phone] | | | | | | [place], [place] | Fax: | | | | | | [address] | [phone] | | | | | | Phone: | | | | | | | [phone] | | | | | | | Fax: | | | | | | | [phone] | | +--------+--------+ + + + + Encounter Details +--------+ + + + + | Date | Type | Department | Care Team | Description | +--------+ + + + + | 10/10/ | [facility] | [facility] | Sree Abdul Nurse | Central Line Care | | 2014 | l Support | [facility] [place] | [address] | | | | Staff | [address] | [address] [place], [place] | | | | | [address] [place], [place] | [address] | | | | | [address] | [phone] | | | | | [phone] | | | | | | | Sree Jain Ma | | | | | | Schedule [place], | | | | | | [place] [address] | | +--------+ + + + + [...]
--- OUTSIDE RECORDS SUMMARY | ~2018-12-05 | XMS | Encounter Summary ---
Demographics + + + | Address | [address] | | | [place] [address] | + + + | Home Phone | | + + + | Preferred Language | Unknown | + + + | Marital Status | Single | + + + | Lutheran Affiliation | Unknown | + + + | Race | White | + + + | Ethnic Group | Not or | + + + Author + + + | Author | [facility] | + + + | Organization | [facility] | + + + | Address | Unknown | + + + | Phone | Unavailable | + + + Support + + + + + | Name | Relationship | Address | Phone | + + + + + | Lolis Rodriguez | SCOTTY | [address] | | | | | [address] | | | | | [address] | | + + + + + Care Team Providers + +------+ + | Care Ross Lift Operator Name | Role | Phone | [...] | | | postprocedur | LEGACY | [place] | | | | | al | MEDICAL | [address] | | | | | status(V45.8 | GROUP | [address] | | | | | 9) | [place] | [place], [place] | | | | | Procedures | [address] | [address] | | | | | [address] | [address] | Phone: | | | | | LABS | [address] | [phone] | | | | | | [place], [place] | Fax: | | | | | | [address] | [phone] | | | | | | Phone: | | | | | | | [phone] | | | | | | | Fax: | | | | | | | [phone] | | +--------+--------+ + + + + Encounter Details +--------+ + + + + | Date | Type | Department | Care Team | Description | +--------+ + + + + | 01/15/ | [facility] | [facility] | [place] Nurse | Central Line Care | | 2016 | l Support | [facility] [place] | [address] | ([facility]) | | | Staff | [address] | [address] [place], [place] | | | | | [address] [place], [place] | [address] | | | | | [address] | [phone] | | | | | [phone] | | | | | | | Sree Jain Ma | | | | | | Schedule [place], | | | | | | [place] [address] | | +--------+ + + + + [...] + + documented in this encounter Progress Mary Brooks RN - 03/09/2015 3:21 PM Faustina Javed is [...]
--- OUTSIDE RECORDS SUMMARY | ~2018-12-05 | XMS | Encounter Summary ---
Demographics + + + | Address | [address] | | | [place] [address] | + + + | Home Phone | | + + + | Preferred Language | Unknown | + + + | Marital Status | Single | + + + | Orthodox Affiliation | Unknown | + + + [...] [address] | | | | | [address] | | | | | [address] | | + + + + + Care Team Providers + +------+ + | Care Soa Integration Architect Name | Role | Phone | + [...] as of this encounter Progress Notes Interface, Volunteer Services Specialist In - 09/20/2005 1:11 AM PDTCLINIC DATE: 02/08/2002 [facility] This is a conference/coordination of care visit consisting of 30 minutes of [id number] time with the patient. CHIEF COMPLAINT: "I am having hard time staying awake." HISTORY OF PRESENT ILLNESS: The patient relates a history of chronic fatigue, decreased memory, and right upper quadrant pain. Her right upper quadrant pain has been evaluated in the past by Gastroenterology here at [facility]. Additionally, more recently, she has developed a leg injury that has resulted in low back pain and right leg pain. She is currently being treated by Dr. Roberts in [place] who has scheduled her for an MRI [...] and tobacco use since 1976. CURRENT MEDICATIONS: [place] 300 mg 5 times a day, Paxil [...] her records from Dr. Dougie Gaviria of [place] to be transferred here to [facility]. The patient will return to the clinic at the next available appointment for a complete physical examination. James Boss M.D., M.P.H. JANAY / HS [id number] / [id number] / [id number] / Tdocumented in this encounter Plan of Treatment Not on filedocumented as of this encounter Visit Diagnoses Not on filedocumented in this encounter
--- OUTSIDE RECORDS SUMMARY | ~2018-12-05 | XMS | Encounter Summary ---
Demographics + + + | Address | [address] | | | [place] [address] | + + + | Home Phone [...] Author + + + | Author | [facility] | + + + | Organization | [facility] | + + + | Address | Unknown | + + + | Phone | Unavailable | + + + Support + + + + + | Name | Relationship | Address | Phone | + + + + + | Lolis Rodriguez | SCOTTY | [address] | | | | | [address] | | | | | [address] | | + + + + + Care Team Providers + +------+ + | Care Chief Medical Technologist Name | Role | Phone | [...] Care | | 2016 | Support | [facility] [place] | [address] | | | | Staff | [address] | [address] [place], [place] | | | | | [address] [place], [place] | [address] | | | | | [address] | [phone] | | | | | [phone] | | | | | | | Sree Jain Ma | | | | | | Schedule [place], | | | | | | [place] [address] | | +--------+ + + + + [...]
--- OUTSIDE RECORDS SUMMARY | ~2018-12-05 | XMS | Encounter Summary ---
Demographics + + + | Address | [address] | | | [place] [address] | + + + | Home Phone [...] Author + + + | Author | [facility] | + + + | Organization | [facility] | + + + | Address | Unknown | + + + | Phone | Unavailable | + + + Support + + + + + | Name | Relationship | Address | Phone | + + + + + | Lolis Rodriguez | SCOTTY | [address] | | | | | [address] | | | | | [address] | | + + + + + Care Team Providers + +------+ + | Care Fish Net Maker Name | Role | Phone | + +------+ + | Mahendra Cash MD | PCP | | + +------+ + Encounter Details +--------+ + + + + | Date | Type | Department | Care Team | Description | +--------+ + + + + | 09/15/ | Document-Sc | UNKNOWN DEPARTMENT | Unknown . | | | 2013 | anned | [address] | | | | | | [address] | | | | | | [place] | | | | | | [address] | | | +--------+ + + + [...]
--- OUTSIDE RECORDS SUMMARY | ~2018-12-05 | XMS | Encounter Summary ---
Demographics + + + | Address | [address] | | | [place] [address] | + + + | Home Phone [...] [address] | | | | | [address], [place] | | | | | [address] | | + + + + + Care Team Providers + +------+ + | Care Food Mixer Name | Role | Phone | + [...] as of this encounter Progress Notes Interface, Supervisor Electronics Processing In - 01/14/2006 5:[address] [address] or June 12, 1999 Marlon Freeman [facility] [address] [place] [address] RE: LAURY MIDDLETON MR #: [id number] Dear Dr. Freeman: I had the pleasure [...] three cardiac arteriograms. MEDICATIONS 1. Prilosec 2. [place]. 3. Accolate. 4. Evista. 4. Promethazine. 5. [...] attempt to obtain her ultrasound reports from [facility]. I am still entertaining the possibility of [...] Naun Carias M.D. HERI / LUIS EDUARDO [id number] / [id number] / [id number] / [id number] signed by Interface, Supervisor Electronics Processing In at 01/14/2006 5:11 AM PSTdocume nted in this encounter Plan of Treatment Not on filedocumented as of this encounter Visit Diagnoses Not on filedocumented in this encounter"
--- OUTSIDE RECORDS SUMMARY | ~2018-12-05 | XMS | Encounter Summary ---
Demographics + + + | Address | [address] | | | [place] [address] | + + + | Home Phone | | + + + | Preferred Language | Unknown | + + + | Marital Status | Single | + + + | Mandaen Affiliation | Unknown | + + + | Race | White | + + + | Ethnic Group | Not or | + + + Author + + + | Author | [facility] | + + + | Organization | [facility] | + + + | Address | Unknown | + + + | Phone | Unavailable | + + + Support + + + + + | Name | Relationship | Address | Phone | + + + + + | Lolis Rodriguez | SCOTTY | [address] | | | | | [address] | | | | | [address] | | + + + + + Care Team Providers + +------+ + | Care Corn Crop Supervisor Name | Role | Phone | [...] [address] | | | | | | [place], [place] | | | | | | [address] | | | | | | [phone] | | | +--------+ + + + [...] + + + | [facility] | [address] | [place] [address] | | | LABORATORY | | | [...] + + + | [facility] | [address] | [place] [address] | | | LABORATORY | | | [...] | + + + + + | [facility] | [address] | [place] [address] | | | LABORATORY | | | [...] | | | | AMOL EVANS | [facility] | | | | | | Laboratories. | | | | + + + + + + + + | Specimen | + + | | + + + + + + + | Performing | Address | City/State/Zipcode | Phone Number | | Organization | | | | + + + + + | [facility] | [address] | [place] [address] | | | LABORATORY | | | [...] + + + | [facility] | [address] | [place] [address] | | | LABORATORY | | | [...] | + + + + + | [facility] DEPARTMENT | [address] | [place] [address] | | | PATHOLOGY | [address] | | | + + + + + | [facility] DEPARTMENT | [address] | [place] [address] | | | PATHOLOGY | [address] [...] | + + + + + | [facility] DEPARTMENT OF | [address] | [place] [address] | | | PATHOLOGY | [address] | | | + + + + + | [facility] DEPARTMENT OF | [address] | [place] [address] | | | PATHOLOGY | [address] [...] | + + + + + | [facility] DEPARTMENT OF | [address] | [place] [address] | | | PATHOLOGY | [address] | | | + + + + + | [facility] DEPARTMENT OF | [address] | [place] [address] | | | PATHOLOGY | [address] [...] Performed At | + + + | [id number] Cause[place] Phoned | [facility] | | | DEPARTMENT OF | | | PATHOLOGY | + + + + + + + + | Performing | Address | City/State/Zipcode | Phone Number | | Organization | | | | + + + + + | [facility] DEPARTMENT OF | [address] | [place] [address] | | | PATHOLOGY | [address] | | | + + + + + | [facility] DEPARTMENT OF | [address] | [place] [address] | | | PATHOLOGY | [address] [...] | + + + + + | [facility] DEPARTMENT OF | [address] | [place] [address] | | | PATHOLOGY | [address] | | | + + + + + | [facility] DEPARTMENT OF | [address] | [place] [address] | | | PATHOLOGY | [address] [...] | + + + + + | [facility] DEPARTMENT OF | [address] | [place] [address] | | | PATHOLOGY | [address] | | | + + + + + | [facility] DEPARTMENT OF | [address] | [place] [address] | | | PATHOLOGY | [address] [...] | + + + + + | [facility] DEPARTMENT OF | [facility] | [place] [address] | | | PATHOLOGY | [address] | | | + + + + + | [facility] DEPARTMENT OF | [facility] | [place] [address] | | | PATHOLOGY | [address] [...] | + + + + + | [facility] DEPARTMENT | [address] | [place] [address] | | | PATHOLOGY | [address] | | | + + + + + | [facility] | [address] | [place] [address] | | | PATHOLOGY | [address] [...] | + + + + + | [facility] DEPARTMENT OF | [address] | [place] [address] | | | PATHOLOGY | [address] | | | + + + + + | [facility] | [address] | [place] [address] | | | PATHOLOGY | [address] | | | + + + + + documented in this encounter Visit Diagnoses Not on filedocumented in this encounter"
--- OUTSIDE RECORDS SUMMARY | ~2018-12-05 | XMS | Encounter Summary ---
Demographics + + + | Address | [address] | | | [place] [address] | + + + | Home Phone [...] [address] | | | | | [address] | | | | | [address] | | + + + + + Care Team Providers + +------+ + | Care Machine Installer Name | Role | Phone | + [...] [place] | | | | | | [address] | | | +--------+ + + + [...]
--- OUTSIDE RECORDS SUMMARY | ~2018-12-05 | XMS | Encounter Summary ---
Demographics + + + | Address | [address] | | | [place] [address] | + + + | Home Phone [...] BOX | | | | | [address] | | | | | [address] | | + + + + + Care Team Providers + +------+ + | Care Photo Cartographer Name | Role | Phone | + +------+ + | No Pcp Per Patient | PCP | Unavailable | + +------+ + Encounter Details +--------+ + + + + | Date | Type | Department | Care Team | Description | +--------+ + + + + | 09/01/ | Abstract | [facility] | Mahendra Cash, | | | 2013 | | [facility] | MD [facility] | | | | | [address] | [place] [address] | | | | | [address] [place] | [address] | | | | | [address] | [address] [place] | | | | | [phone] | [address] | | | | | | | [...]
--- OUTSIDE RECORDS SUMMARY | ~2018-12-05 | XMS | Encounter Summary ---
Demographics + + + | Address | [address] | | | [place] [address] | + + + | Home Phone | | + + + | Preferred Language | Unknown | + + + | Marital Status | Single | + + + | Baptist Affiliation | Unknown | + + + | Race | White | + + + | Ethnic Group | Not or | + + + Author + + + | Author | [facility] | + + + | Organization | [facility] | + + + | Address | Unknown | + + + | Phone | Unavailable | + + + Support + + + + + | Name | Relationship | Address | Phone | + + + + + | Lolis Rodriguez | SCOTTY | [address] | | | | | [address] | | | | | [address] | | + + + + + Care Team Providers + +------+ + | Care Tube Drawing Supervisor Name | Role | Phone | [...] | | | al | MEDICAL | [address] | | | | | status(V45.8 | GROUP | [address] | | | | | 9) | [place] | [place], [place] | | | | | Procedures | [address] | [address] | | | | | [place] | [address] | Phone: | | | | | LABS | [address] | [phone] | | | | | | [place], [place] | Fax: | | | | | | [address] | [phone] | | | | | | Phone: | | | | | | | [phone] | | | | | | | Fax: | | | | | | | [phone] | | +--------+--------+ + + + + Encounter Details +--------+ + + + + | Date | Type | Department | Care Team | Description | +--------+ + + + + | 10/10/ | [facility] | [facility] | Sree Abdul Nurse | [facility] Line Care | | 2014 | l Support | [facility] [place] | [address] | | | | Staff | [address] | [address] [place], [place] | | | | | [address] [place], [place] | [address] | | | | | [address] | [phone] | | | | | [phone] | | | | | | | [address] | | | | | | Schedule [place], | | | | | | [place] [address] | | +--------+ + + + + [...]
--- OUTSIDE RECORDS SUMMARY | ~2018-12-05 | XMS | Encounter Summary ---
Demographics + + + | Address | [address] | | | [place] [address] | + + + | Home Phone [...] [address] | | | | | [address] | | | | | [address] | | + + + + + Care Team Providers + +------+ + | Care Glove Turner Name | Role | Phone | + [...] [address] | | | | | | [place], [place] | | | | | | [address] | | | | | | [phone] | | | +--------+ + + + [...] + + + | [facility] | [address] | [place] [address] | | | LABORATORY | | | [...] + + + | [facility] | [address] | [place] [address] | | | LABORATORY | | | [...] | + + + + + | [facility] | [address] | [place] [address] | | | LABORATORY | | | [...] Jone | | | | | AMOL VEANS | [facility] | | | | | | Laboratories. | | | | + + + + + + + + | Specimen | + + | | + + + + + + + | Performing | Address | City/State/Zipcode | Phone Number | | Organization | | | | + + + + + | [facility] | [address] | [place] [address] | | | LABORATORY | | | [...] + + + | [facility] | [address] | [place] [address] | | | LABORATORY | | | [...] | + + + + + | [facility] DEPARTMENT | [address] | [place] [address] | | | PATHOLOGY | [address] | | | + + + + + | [facility] DEPARTMENT | [address] | [place] [address] | | | PATHOLOGY | [address] [...] | + + + + + | [facility] DEPARTMENT OF | [address] | [place] [address] | | | PATHOLOGY | [address] | | | + + + + + | [facility] DEPARTMENT OF | [address] [address] | [place] [address] | | | PATHOLOGY | [address] [...] | + + + + + | [facility] DEPARTMENT OF | [address] | [place] [address] | | | PATHOLOGY | [address] | | | + + + + + | [facility] DEPARTMENT OF | [address] [address] | [place] [address] | | | PATHOLOGY | [address] [...] Performed At | + + + | [id number] [place] Phoned | [facility] | | | DEPARTMENT OF | | | PATHOLOGY | + + + + + + + + | Performing | Address | City/State/Zipcode | Phone Number | | Organization | | | | + + + + + | [facility] DEPARTMENT OF | [address] | [place] [address] | | | PATHOLOGY | [address] | | | + + + + + | [facility] DEPARTMENT OF | [address] | [place] [address] | | | PATHOLOGY | [address] [...] | + + + + + | [facility] DEPARTMENT OF | [address] | [place] [address] | | | PATHOLOGY | [address] | | | + + + + + | [facility] DEPARTMENT OF | [address] | [place] [address] | | | PATHOLOGY | [address] [...] | + + + + + | [facility] DEPARTMENT OF | [address] | [place] [address] | | | PATHOLOGY | [address] | | | + + + + + | [facility] DEPARTMENT OF | [address] | [place] [address] | | | PATHOLOGY | [address] [...] | + + + + + | [facility] DEPARTMENT OF | [facility] | [place] [address] | | | PATHOLOGY | [address] | | | + + + + + | [facility] DEPARTMENT OF | [facility] | [place] [address] | | | PATHOLOGY | [address] [...] | + + + + + | [facility] DEPARTMENT | [address] | [place] [address] | | | PATHOLOGY | [address] | | | + + + + + | [facility] | [address] | [place] [address] | | | PATHOLOGY | [address] [...] | + + + + + | [facility] DEPARTMENT OF | [address] | [place] [address] | | | PATHOLOGY | [address] | | | + + + + + | [facility] | [address] | [place] [address] | | | PATHOLOGY | [address] | | | + + + + + documented in this encounter Visit Diagnoses Not on filedocumented in this encounter"
--- OUTSIDE RECORDS SUMMARY | ~2018-12-05 | XMS | Encounter Summary ---
Demographics + + + | Address | [address] | | | [place] [address] | + + + | Home Phone [...] [address]OX | | | | | [address] | | | | | [address] | | + + + + + Care Team Providers + +------+ + | Care Tonguer Name | Role | Phone | + [...] Care | | 2014 | Collaborati | [facility] [place] | MD [facility] | | | | ve Order | [address] | [place] [address] | | | | | [address] [place], [place] | [address] | | | | | [address] | [address] [place], [place] | | | | | [phone] | [address] | | | | | | | [...]
--- OUTSIDE RECORDS SUMMARY | ~2018-12-05 | XMS | Encounter Summary ---
Demographics + + + | Address | [address] | | | [place] [address] | + + + | Home Phone [...] [address] | | | | | [address] | | | | | [address] | | + + + + + Care Team Providers + +------+ + | Care Storage Administrator Name | Role | Phone | [...] | | | | | Khadra Quan [place], | | | | | | [place] [address] | | | +--------+ + + + [...]
--- OUTSIDE RECORDS SUMMARY | ~2018-12-05 | XMS | Encounter Summary ---
Demographics + + + | Address | [address] | | | [place] [address] | + + + | Home Phone [...] [address] | | | | | [address], [place] | | | | | [address] | | + + + + + Care Team Providers + +------+ + | Care Systems Development Manager Name | Role | Phone | [...] + + + | [facility] | [address] | [place] [address] | | | LABORATORY | | | [...] | + + + + + | [facility] | [address] | [place] [address] | | | LABORATORY | | | [...] + + + | [facility] | [address] | [place] [address] | | | LABORATORY | | | [...] + + + | [facility] | [address] | [place] [address] | | | LABORATORY | | | [...] + + + + + | [facility] | [address] | [place] [address] | | | LABORATORY | | | [...] | + + + + + | [facility] | [address] | [place] [address] | | | LABORATORY | | | [...] + + + | [facility] | [address] | [place] [address] | | | LABORATORY | | | [...] | + + + + + | [facility] DEPARTMENT OF | [address] | [place] [address] | | | PATHOLOGY | [address] | | | + + + + + | [facility] DEPARTMENT OF | [address] | [place] [address] | | | PATHOLOGY | [address] | | | + + + + + COAG MASTER PANEL (06/12/1999 11:17 AM PDT) + [...] | + + + + + | [facility] | [address] | [place] [address] | | | PATHOLOGY | [address] | | | + + + + + | [facility] | [address] | [place] [address] | | | PATHOLOGY | [address] | | | + + + + + documented in this encounter Visit Diagnoses Not on filedocumented in this encounter"
--- OUTSIDE RECORDS SUMMARY | ~2018-12-05 | XMS | Encounter Summary ---
Demographics + + + | Address | [address] | | | [place] [address] | + + + | Home Phone [...] [address]OX | | | | | [address] | | | | | [address] | | + + + + + Care Team Providers + +------+ + | Care Senior Developer Name | Role | Phone | [...] | | genital | [facility] | [address] | | | | | prolapse, | Hospital | [facility] | | | | | unspecified | [address] | [address] | | | | | Procedures | [address] | [place], [place] | | | | | [place] | [address] | [address] | | | | | PATIENT | Demian, | Phone: | | | | | [place] | [place] [address] | [phone] | | | | | EST PATIENT | Phone: | Fax: | | | | | [address] | [phone] | [phone] | | | | | | Fax: | | | | | | | [phone] | | +--------+--------+ + + + + Encounter Details +--------+---------+ + + + | Date | Type | Department | Care Team | Description | +--------+---------+ + + + | 08/18/ | Office [facility] | Clair Kay MD | Pelvic pain (Primary | | 2017 | Visit | [facility] | [address] | Dx); Pain of right | | | | [address] | [address] | hip joint; Mixed | | | | [address] | [place], [place] | incontinence urge | | | | [facility] | [address] | and stress | | | | [place], [place] | [phone] | (male)(female) | | | | [address] | | | | | | [phone] | | | +--------+---------+ + + + [...] to decrease the ne rve sensitivities. 2. [place] - please stop by [employer] on your way out of town to warp picker "astroglide" for lubrication. 3. Follow up - please make an appointment in 3 months after starting PT. Please sign up for MyChart so we can communicate about your gabapentin dosing. I have included below some information about pelvic muscle pain. Clair Brown MD [facility] Division of Urogynecology and Reconstructive Pelvic Surgery Department of [facility] Levator Myalgia The muscles along the base [...] activities or seeing a sp orts medicine/ adoption specialist. & Chronic Pain Levator myalgia can be associated with chronic pain. In certain cases we will recommend a highway painter to help with your care. documented in [...] on the patient intake questionnaire (scanned into Fabule) and with the patient. The summary is [...] be found in the scanned documents in Fabule. They have also been entered into rele vant carson of the Fabule database. Past Medical History: Diagnosis Date Abdominal [...] allergies Spasm of muscle SVT (supraventricular tachycardia) ([facility]) 1980 Thoracic spondylosis without myelopathy Past [...] by mouth once daily., Disp: , Rfl: jyzffjkp-lzagcdfhj-ekibsungiqvtus 3.5-10,000-1 mg/mL-unit/mL-% otic solution, Instill in e [...]
--- OUTSIDE RECORDS SUMMARY | ~2018-12-05 | XMS | Encounter Summary ---
Demographics + + + | Address | [address] | | | [place] [address] | + + + | Home Phone [...] [address]OX | | | | | [address] | | | | | [address] | | + + + + + Care Team Providers + +------+ + | Care Helicopter Crew Chief Name | Role | Phone | + [...] | | | | | Khadra Quan [place], | | | | | | [place] [address] | | | +--------+ + + + [...] | 0 | 06/04/19 | | | zahxopdv-okrpwytab-x | needed. | | | 16 | [...]
--- OUTSIDE RECORDS SUMMARY | ~2018-12-05 | XMS | Encounter Summary ---
Demographics + + + | Address | [address] | | | [place] [address] | + + + | Home Phone [...] [address]OX | | | | | [address] | | | | | [address] | | + + + + + Care Team Providers + +------+ + | Care Precision Aircraft Structure Assembler Name | Role | Phone | [...] | | | | | Khadra Quan [place], | | | | | | [place] [address] | | | +--------+ + + + [...] | 0 | 06/04/19 | | | pnqothbi-wphlnyljx-h | needed. | | | 16 | [...]
--- OUTSIDE RECORDS SUMMARY | ~2018-12-05 | XMS | Encounter Summary ---
Demographics + + + | Address | [address] | | | [place] [address] | + + + | Home Phone [...] [address] | | | | | [address] | | | | | [address] | | + + + + + Care Team Providers + +------+ + | Care Show Dog Trainer Name | Role | Phone | + [...] | | | | | Khadra Quan [place], | | | | | | [place] [address] | | | +--------+ + + + [...]
--- OUTSIDE RECORDS SUMMARY | ~2018-12-05 | XMS | Encounter Summary ---
Demographics + + + | Address | [address] | | | [place] [address] | + + + | Home Phone | | + + + | Preferred Language | Unknown | + + + | Marital Status | Single | + + + | Rastafari Affiliation | Unknown | + + + [...] [address]OX | | | | | [address] | | | | | [address] | | + + + + + Care Team Providers + +------+ + | Care Mathematics Faculty Member Name | Role | Phone [...] | | | | | Khadra Quan [place], | | | | | | [place] [address] | | | +--------+ + + + [...]
--- OUTSIDE RECORDS SUMMARY | ~2018-12-05 | XMS | Encounter Summary ---
Demographics + + + | Address | [address] | | | [place] [address] | + + + | Home Phone [...] + + + | Author | [facility] | + + + | Organization | [facility] | + + + | Address | Unknown | + + + | Phone | Unavailable | + + + Support + + + + + | Name | Relationship | Address | Phone | + + + + + | Lolis Rodriguez | SCOTTY | [address] | | | | | [address] | | | | | [address] | | + + + + + Care Team Providers + +------+ + | Care Switching Operator Name | Role | Phone | + +------+ + | No Pcp Per Patient | PCP | Unavailable | + +------+ + Encounter Details +--------+ + + + + | Date | Type | Department | Care Team | Description | +--------+ + + + + | 09/01/ | Abstract | [facility] | Mahendra Cash, | | | 2013 | | [facility] | MD [facility]EN[facility] | | | | | [address] | [place] [address] | | | | | [address] | [address] | | | | | [address] | [address] [place] | | | | | [phone] | [address] | | | | | | | [...]
--- OUTSIDE RECORDS SUMMARY | ~2018-12-05 | XMS | Encounter Summary ---
Demographics + + + | Address | [address] | | | [place] [address] | + + + | Home Phone [...] + + + | Author | [facility] | | | and Ramakrishnaana | + + + | Organization | [facility] | | | and [...] Team Providers + +------+ + | Care Meteorological Engineer Name | Role | Phone | [...] + | 12/01/ | Telephone | [facility] | Rigo Muniz | Other | | 2018 | | ORTHOPEDIC SURGERY | [address] | | | | | [address] [facility] | [address] | | | | | [place], [place] | [place] [address] | | | | | [address] | [phone] | | | | | [phone] | | | +--------+ + + + [...]
--- OUTSIDE RECORDS SUMMARY | ~2018-12-05 | XMS | Encounter Summary ---
Demographics + + + | Address | [address] | | | [place] [address] | + + + | Home Phone | | + + + | Preferred Language | Unknown | + + + | Marital Status | Single | + + + | Taoism Affiliation | Unknown | + + + [...] [address]OX | | | | | [address] | | | | | [address] | | + + + + + Care Team Providers + +------+ + | Care Float Builder Name | Role | Phone | + +------+ + | Mahendra Cash MD | PCP | | + +------+ + Encounter Details +--------+ + + + + | Date | Type | Department | Care Team | Description | +--------+ + + + + | 12/08/ | Document-Sc | Health Information | Unknown . | | | 2014 | anned | Services [address] | | | | | | [address] | | | | | | Mailcode: [id number] | | | | | | [facility] | | | | | | [place], [place] | | | | | | [address] | | | | | | [phone] | | | +--------+ + + + [...]
--- OUTSIDE RECORDS SUMMARY | ~2018-12-05 | XMS | Encounter Summary ---
Demographics + + + | Address | [address] | | | [place] [address] | + + + | Home Phone [...] [address]OX | | | | | [address] | | | | | [address] | | + + + + + Care Team Providers + +------+ + | Care Maintenance Craftsman Name | Role | Phone | + [...] Care | | 2015 | Collaborati | [facility] | MD CLARISA CALLES | | | | ve Order | [address] | [place] [address] | | | | | [address] [place], [place] | [address] | | | | | [address] | [address] [place], [place] | | | | | [phone] | [address] | | | | | | | [...]
--- OUTSIDE RECORDS SUMMARY | ~2018-12-05 | XMS | Encounter Summary ---
Demographics + + + | Address | [address] | | | [place] [address] | + + + | Home Phone [...] [address] | | | | | [place], [place] | | | | | [address] | | + + + + + Care Team Providers + +------+ + | Care Security Systems Sales Representative Name | Role | Phone | [...] + + + | [facility] | [address] | [place] [address] | | | LABORATORY | | | [...] | + + + + + | [facility] | [address] | [place] [address] | | | LABORATORY | | | [...] + + + | [facility] | [address] | [place] [address] | | | LABORATORY | | | [...] + + + | [facility] | [address] | [place] [address] | | | LABORATORY | | | [...] | + + + + + | [facility] | [address] | [place] [address] | | | LABORATORY | | | [...] | + + + + + | [facility] | [address] | [place] [address] | | | LABORATORY | | | [...] + + + | [facility] | [address] | [place] [address] | | | LABORATORY | | | [...] + + + + + | [facility] DEPARTMENT OF | [address] | [place] [address] | | | PATHOLOGY | [address] | | | + + + + + | [facility]PARTMENT OF | [address] | [place] [address] | | | PATHOLOGY | [address] [...] + + + + | [facility] | [address] | [place] [address] | | | PATHOLOGY | [address] | | | + + + + + | [facility] | [address] | [place] [address] | | | PATHOLOGY | [address] | | | + + + + + documented in this encounter Visit Diagnoses Not on filedocumented in this encounter"
--- OUTSIDE RECORDS SUMMARY | ~2018-12-05 | XMS | Encounter Summary ---
Demographics + + + | Address | [address] | | | [place] [address] | + + + | Home Phone [...] + + + | Author | [facility] | + + + | Organization | [facility] | + + + | Address | Unknown | + + + | Phone | Unavailable | + + + Support + + + + + | Name | Relationship | Address | Phone | + + + + + | Lolis Rodriguez | SCOTTY | [address] | | | | | [address] | | | | | [address] | | + + + + + Care Team Providers + +------+ + | Care Rehanger Name | Role | Phone | + [...] | | 2017 | | [facility] | [address] | | | | | [address] | [address] | | | | | [address] | [place], [place] | | | | | [place] | [address] | | | | | [place], [place] | [phone] | | | | | [address] | | | | | | [phone] | | | +--------+ + + + [...]
--- OUTSIDE RECORDS SUMMARY | ~2018-12-05 | XMS | Encounter Summary ---
Demographics + + + | Address | [address] | | | [place] [address] | + + + | Home Phone [...] [address] | | | | | [address] | | | | | [address] | | + + + + + Care Team Providers + +------+ + | Care Sliver Former Name | Role | Phone | + [...] as of this encounter Progress Notes Interface, Court Interpreter In - 09/20/2005 1:11 AM PDTCLINIC DATE: 02/08/2002 [facility] This is a conference/coordination of care visit consisting of 30 minutes of wnql-sh-gykk time with the patient. CHIEF COMPLAINT: "I am having hard time staying awake." HISTORY OF PRESENT ILLNESS: The patient relates a history of chronic fatigue, decreased memory, and right upper quadrant pain. Her right upper quadrant pain has been evaluated in the past by Gastroenterology here at [facility]. Additionally, more recently, she has developed a leg injury that has resulted in low back pain and right leg pain. She is currently being treated by Dr. Roberts in [place] who has scheduled her for an MRI [...] and tobacco use since 1976. CURRENT MEDICATIONS: [place] 300 mg 5 times a day, Paxil [...] her records from Dr. Dougie Gaviria of [place] to be transferred here to [facility]. The patient will return to the clinic at the next available appointment for a complete physical examination. James Boss M.D., M.P.H. [facility] / HS [id number] / [id number] / [id number] / Tdocumented in this encounter Plan of Treatment Not on filedocumented as of this encounter Visit Diagnoses Not on filedocumented in this encounter
--- OUTSIDE RECORDS SUMMARY | ~2018-12-05 | XMS | Encounter Summary ---
Demographics + + + | Address | [address] | | | [place] [address] | + + + | Home Phone [...] BOX | | | | | [address] | | | | | [address] | | + + + + + Care Team Providers + +------+ + | Care Artist Blacksmith Name | Role | Phone | + [...] | | | postprocedur | LEGACY | [place] | | | | | al | MEDICAL | [address] | | | | | status(V45.8 | GROUP | [address] | | | | | 9) | [place] | [place], [place] | | | | | Procedures | [address] | [address] | | | | | [place] | [address] | Phone: | | | | | LABS | [address] | [phone] | | | | | | [place], [place] | Fax: | | | | | | [address] | [phone] | | | | | | Phone: | | | | | | | [phone] | | | | | | | Fax: | | | | | | | [phone] | | +--------+--------+ + + + + Encounter Details +--------+ + + + + | Date | Type | Department | Care Team | Description | +--------+ + + + + | 01/15/ | [facility] | [facility] | [place] Nurse | Central Line Care | | 2016 | l Support | [facility] [place] | [address] | ([facility]) | | | Staff | [address] | [address] [place], [place] | | | | | [address] [place], [place] | [address] | | | | | [address] | [phone] | | | | | [phone] | | | | | | | Sree Jain Ma | | | | | | Schedule [place], | | | | | | [place] [address] | | +--------+ + + + + [...]
--- OUTSIDE RECORDS SUMMARY | ~2018-12-05 | XMS | Encounter Summary ---
Demographics + + + | Address | [address] | | | [place] [address] | + + + | Home Phone [...] Author + + + | Author | [facility] | + + + | Organization | [facility] | + + + | Address | Unknown | + + + | Phone | Unavailable | + + + Support + + + + + | Name | Relationship | Address | Phone | + + + + + | Lolis Rodriguez | SC[address]TY | [address] | | | | | [address] | | | | | [address] | | + + + + + Care Team Providers + +------+ + | Care Hogshead Head Matcher Name | Role | Phone | + [...] as of this encounter Progress Notes Interface, Dining Manager In - 08/24/2005 3:03 AM PDTCLINIC [...] in 6 weeks. James Boss M.D., M.P.H. [facility] / [id number] / [id number] / [id number] / Tdocumented in this encounter Plan of Treatment Not on filedocumented as of this encounter Visit Diagnoses Not on filedocumented in this encounter
--- OUTSIDE RECORDS SUMMARY | ~2018-12-05 | XMS | Encounter Summary ---
Demographics + + + | Address | [address] | | | [place] [address] | + + + | Home Phone [...] [address] | | | | | [place], [place] | | | | | [address] | | + + + + + Care Team Providers + +------+ + | Care Foam Gun Operator Name | Role | Phone | [...]
--- OUTSIDE RECORDS SUMMARY | ~2018-12-05 | XMS | Encounter Summary ---
Demographics + + + | Address | [address] | | | [place] [address] | + + + | Home Phone [...] [address]OX | | | | | [address] | | | | | [address] | | + + + + + Care Team Providers + +------+ + | Care Swatch Maker Name | Role | Phone | [...] | | 2017 | | [facility] | [address] | | | | | [address] | [address] | | | | | [address] | [place], [place] | | | | | [place] | [address] | | | | | [place], [place] | [phone] | | | | | [address] | | | | | | [phone] | | | +--------+ + + + [...]
--- OUTSIDE RECORDS SUMMARY | ~2018-12-05 | XMS | Encounter Summary ---
Demographics + + + | Address | [address] | | | [place] [address] | + + + | Home Phone [...] [place] | | | | | [address] | | + + + + + Care Team Providers + +------+ + | Care Medical Videographer Name | Role | Phone | + [...] Care | | 2015 | Collaborati | [facility] | MD CLARISA CALLES | | | | ve Order | [address] | GROUP [place] [address] | | | | | [address] [place], [place] | [address] | | | | | [address] | [address] [place], [place] | | | | | [phone] | [address] | | | | | | | [...]
--- OUTSIDE RECORDS SUMMARY | ~2018-12-05 | XMS | Clinical Summary ---
Demographics + + + | Address | [address] | | | [place] [address] | + + + | Home Phone [...] [place] | | | | | [address] | | + + + + + Care Team Providers + +------+ + | Care Recreation Adviser Name | Role | Phone | + +------+ + | James Horne MD | PCP | | + +------+ + Source Comments SHARON is fully live on both [facility] Allergies + + + + + [...] | 04/1 | | Activ | | zeugrvpa-qzweqieof-d | needed. | | | 1/20 | [...] | | | | | | | [address] | | + +--------+ +--------+ + +--------+ + +--------+ +--------+ + + | Guarantor Name | Accoun | Relation to | Date | Phone | Billing Address | | | t Type | Patient | of | | | | | | | | | | + +--------+ +--------+ + + | Laury Crockett | Person | Self [birth year] | [address] | | | al/Fam | | 1961 | [phone] | [place] | | | de | | | 9 (Home) | [address] | + +--------+ +--------+ + +
--- OUTSIDE RECORDS SUMMARY | ~2018-12-05 | XMS | Clinical Summary ---
Demographics + + + | Address | [address] | | | [place] [address] | + + + | Home Phone [...] + + + | Author | [facility] | | | and Ramakrishnaana | + + + | Organization | [facility] | | | and [...] Providers + +------+ + | Care Supervisor Research Kennel Name | Role | Phone | + [...] + + + + | Overview: Overview: [id number] Assessment & Plan: Colonoscopy | | procedure [...] + + | Overview: Overview: | | SD x 5; has stent; last angioplasty May [...] +--------+ +---------+--------+ | MEDICARE | MEDICA | [id number] | 10/25/19 | [phone] | | Medica [...] | Self | [birth year] | [address] | | | al/Fam | | 1961 | [phone] | [address] | | | de | | | 9 (Home) | [address] | + +--------+ +--------+ + + Advance Directives Patient has advance care planning documents on file. For more information, please contact:[facility] [address]
--- OUTSIDE RECORDS SUMMARY | ~2018-12-05 | XMS | Encounter Summary ---
Demographics + + + | Address | [address] | | | [place] [address] | + + + | Home Phone [...] [address] | | | | | [place], [place] | | | | | [address] | | + + + + + Care Team Providers + +------+ + | Care Limnology Teacher Name | Role | Phone | [...] as of this encounter Progress Notes Interface, Veterans Service Representative In - 01/14/2006 5:[address] [address] or June 12, 1999 Marlon Freeman D.O. [facility] [place]: online [employer] [facility] [address] [place] [address] RE: LAURY MIDDLETON MR #: [id number] Dear Dr. Freeman: I had the pleasure [...] three cardiac arteriograms. MEDICATIONS 1. Prilosec 2. Craig. 3. Accolate. 4. Evista. 4. Promethazine. 5. [...] attempt to obtain her ultrasound reports from [facility]. I am still entertaining the possibility [...] Naun Carias M.D. HERI / LUIS EDUARDO [id number] / [id number] / [id number] / [id number] signed by Interface, Veterans Service Representative In at 01/14/2006 5:11 AM PSTdocume nted in this encounter Plan of Treatment Not on filedocumented as of this encounter Visit Diagnoses Not on filedocumented in this encounter"
--- OUTSIDE RECORDS SUMMARY | ~2018-12-05 | XMS | Encounter Summary ---
Demographics + + + | Address | [address] | | | [place] [address] | + + + | Home Phone [...] BOX | | | | | [address] | | | | | [address] | | + + + + + Care Team Providers + +------+ + | Care Mechanical Tech Name | Role | Phone | [...] | | | | | [address] [place], | | | | | | [place] [address] | | | +--------+ + + + [...]
--- OUTSIDE RECORDS SUMMARY | ~2018-12-05 | XMS | Encounter Summary ---
Demographics + + + | Address | [address] | | | [place] [address] | + + + | Home Phone [...] [address]OX | | | | | [address] | | | | | [address] | | + + + + + Care Team Providers + +------+ + | Care Butadiene Convertor Operator Name | Role | Phone | [...] + + | 08/19/ | Refill | [facility] | Clair Kay MD | Refill Request | | 2017 | | [facility] | [address] | | | | | [address] | [address] | | | | | [address] | [place], [place] | | | | | [facility] | [address] | | | | | [place], [place] | [phone] | | | | | [address] | | | | | | [phone] | | | +--------+--------+ + + + [...]
[~2018-12-05 22:49] MED LIST changes: +CYCLOBENZAPRINE5 MG PO; +DICLOFENAC SODI75 MG PO; +LAMOTRIGINE100 MG PO; +NORCO 7.5-3251 EACH PO
--- OUTSIDE RECORDS SUMMARY | 2018-12-05 22:52 | XMS ---
PreManage Notification: [employer] Superintendent Events No recent Security Events currently on file CRITERIA MET - Group Notification - [facility] Guidelines - [facility] CARE PROVIDERS ROXY MAS Internal Medicine Current PHONE: [phone] MARILYN CLAYTON Nurse Practitioner: Family 09/07/2017-Current PHONE: Unknown ROXY MAS Primary Care Current PHONE: Unknown DR AMES Primary Care 03/14/2016-Current PHONE: [phone] Guidelines Source: [facility] [place] Guidelines Date: 07/12/2018 Care Coordination: Receiving mental health services with [facility].\T\nbsp; Please contact [facility] with mental health concerns.\T\nbsp; Demian/Jeremias Villegas: [phone]\T\ nbsp; Alexandru: [phone]. Care History Medical/Surgical 09/27/2018 [facility] - DUE TO PATIENT RECENT FALL- CHW CONTACTED PCP OFFICE REQUESTED AN ED FOLLOW UP VISIT ON 09/27/18. 09/07/2017 [facility] - Patient is currently established with [facility]. If patient is seen in the ED during business hours. Please contact CHWs at [phone] [phone]. Care Recommendation: This patient has had 5 or more Emergency Department visits in the last 12 months.\T\nbsp; Patient requires education on the scope and purpose of the ED as an acute care provider not a Primary Care Provider and should not be utilized for chronic conditions.\T\nbsp; If patient returns to ED please contact Community Health WorkerWendy at [phone]. These are guidelines and the provider should exercise clinical judgment when providing care. Social 03/18/2016 [facility] ENCOURAGE PATIENT TO USE PCP OR WALK-IN CLINIC FOR NON-EMERGENT PROBLEMS. SHE CAN CALL REPAIRER AND CHECKER FOR HELP OR QUESTIONS. [phone]. E.D. VISIT COUNT (12 MO.) 9 [facility]. TOTAL 9 NOTE: Visits indicate total known visits. ED/UCC VISIT TRACKING (12 MO.) 12/05/2018 22:49 [facility] [place] TYPE: Emergency COMPLAINT: - BEE STING 09/26/2018 18:32 [facility] [place] TYPE: Emergency COMPLAINT: - FALL DIAGNOSES: - Bipolar disorder, unspecified - 1 Type 2 diabetes mellitus with diabetic neuropathy, unsp - Pain in left hip - Low back pain - Other group home (current) 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 - Personal history of malignant neoplasm of bladder - Contusion of left hip, initial encounter - Presence of coronary angioplasty implant and graft - USP (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 aspirin - Hypothyroidism, unspecified - Fall from chair, initial encounter - Nicotine dependence, unspecified, uncomplicated - Contusion of right knee, initial encounter - Allergy status to analgesic agent status - Allergy status to oth drug/meds/biol subst status - 1 Type 2 diabetes mellitus without complications 08/03/2018 12:38 [facility] [place] TYPE: Emergency COMPLAINT: - CHEST PAIN/FALL DIAGNOSES: - Other group home (current) 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 - Personal history of malignant neoplasm of bladder - Allergy status to analgesic agent status - Allergy status to oth drug/meds/biol subst status - USP (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 aspirin - Hypothyroidism, unspecified - Exposure to other specified factors, initial encounter - Gastro-esophageal reflux disease without esophagitis - Other chest pain - Nicotine dependence, unspecified, uncomplicated - Fracture of one rib, left side, init for clos fx - Bipolar disorder, unspecified - 1 Type 2 diabetes mellitus without complications - Unspecified asthma, uncomplicated - Chest pain, unspecified 07/28/2018 12:47 [facility] [place] TYPE: Emergency COMPLAINT: - CHEST PAIN DIAGNOSES: - 1 Type 2 diabetes mellitus with diabetic neuropathy, unsp - Acquired absence of other specified parts of digestive tract - Old myocardial infarction - Presence of coronary angioplasty implant and graft - Acquired absence of both cervix and uterus - Nicotine dependence, unspecified, uncomplicated - Other assistant terminal manager (current) 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 - USP (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 oral hypoglycemic drugs - Chest pain, unspecified - Other chest pain - terminal operations supervisor (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 aspirin - Hypothyroidism, unspecified - Bipolar disorder, unspecified - Unspecified asthma, uncomplicated - Allergy status to oth drug/meds/biol subst status 07/08/2018 15:50 [facility] [place] TYPE: Emergency COMPLAINT: - BURNING SENSATION IN LUNGS DIAGNOSES: - Allergy status to analgesic agent status - USP (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 insulin - Bipolar disorder, unspecified - Hypothyroidism, unspecified - Acquired absence of both cervix and uterus - Allergy status to oth drug/meds/biol subst status - Contact w and expsr to oth hazard, chiefly nonmed, chemicals - Acquired absence of other specified parts of digestive tract - Personal history of malignant neoplasm of large intestine - terminal operations supervisor (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 aspirin - Personal history of malignant neoplasm of bladder - Contact w and expsr to oth hazard, chiefly nonmed, chemicals - Unspecified asthma, uncomplicated - Nicotine dependence, unspecified, uncomplicated - Nicotine dependence, cigarettes, uncomplicated - 1 Type 2 diabetes mellitus without complications - Other assistant terminal manager (current) 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 03/08/2018 18:40 [facility] [place] TYPE: Emergency COMPLAINT: - ALTERED MENTAL STATUS DIAGNOSES: - Bipolar disorder, unspecified - Unspecified asthma, uncomplicated - 1 Type 2 diabetes mellitus without complications - Presence of coronary angioplasty implant and graft - Personal history of malignant neoplasm of bladder - Other assistant terminal manager (current) 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 - Extrapyramidal and movement disorder, unspecified - terminal operations supervisor (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 insulin - Nicotine dependence, unspecified, uncomplicated - Allergy status to narcotic agent status - terminal operations supervisor (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 aspirin - Gastro-esophageal reflux disease without esophagitis - 1 Type 2 diabetes mellitus with diabetic neuropathy, unsp - Allergy status to oth drug/meds/biol subst status - Hypothyroidism, unspecified 03/06/2018 22:19 [facility] [place] TYPE: Emergency COMPLAINT: - SUICIDAL/HEAD INJURY/DIZZINESS DIAGNOSES: - Allergy status to narcotic agent status - USP (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 insulin - Unspecified asthma, uncomplicated - Bipolar disorder, unspecified - 1 Type 2 diabetes mellitus with diabetic neuropathy, unsp - Hypothyroidism, unspecified - Other group home (current) 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 - Suicidal ideations - Allergy status to oth drug/meds/biol subst status - Gastro-esophageal reflux disease without esophagitis - Unspecified injury of head, initial encounter - Unspecified fall, initial encounter - USP (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 aspirin - Old myocardial infarction - Personal history of malignant neoplasm of bladder - Acquired absence of other specified parts of digestive tract - Nicotine dependence, unspecified, uncomplicated 02/07/2018 00:22 [facility] [place] TYPE: Emergency COMPLAINT: - DIZZY/POSS BLODD SUGAR PROBLEM DIAGNOSES: - Gastro-esophageal reflux disease without esophagitis - USP (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 insulin - Allergy status to narcotic agent status - Hypothyroidism, unspecified - Allergy status to oth drug/meds/biol subst status - 1 Type 2 diabetes mellitus with hyperglycemia - Other assistant terminal manager (current) 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 - terminal operations supervisor (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 aspirin - Nicotine dependence, unspecified, uncomplicated 01/29/2018 18:00 [facility] [place] TYPE: Emergency COMPLAINT: - HIGH BLOOD SUGAR DIAGNOSES: - Allergy status to narcotic agent status - USP (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 oral hypoglycemic drugs - Migraine, unsp, not intractable, without status migrainosus - Other chest pain - Unspecified fall, initial encounter - terminal operations supervisor (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 aspirin - Allergy status to oth drug/meds/biol subst status - Other group home (current) 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 - Gastro-esophageal reflux disease without esophagitis - Hypothyroidism, unspecified - Gastritis, unspecified, without bleeding - Unspecified sprain of right elbow, initial encounter - 1 Type 2 diabetes mellitus with hyperglycemia - Nicotine dependence, unspecified, uncomplicated INPATIENT VISIT TRACKING (12 MO.) No inpatient visits to display in this time frame [email or web address]
[2018-12-05] MEDS ORDERED: MINIPRESS2 MG PO (23:06)
--- NOTE | 2018-12-06 15:40 | EKG ---
[facility] [address] [place] [address] Signed Normal sinus rhythm Possible Left atrial enlargement Borderline ECG When compared with ECG of 03-AUG-2018 13:33, No significant change was found Confirmed by JOVANY MAYES MD ([id number]) on 12/06/2018 3:40:26 PM Electronically Signed By: JOVANY MAYES MD 12/06/18 1540 PATIENT NAME: BERYLEstherGROVER Electrocardiogram DATE OF : 60 PHYSICIAN: JOVANY MAYES MD REPORT #: [id number] REPORT IS CONFIDENTIAL AND NOT TO BE RELEASED WITHOUT AUTHORIZATION
[2018-12-06] MEDS ORDERED: ZITHROMAX250 MG PO (20:35)
== END 2018-12-06 01:22 | disposition home or self-care (01) ==
LOC: ED 22:49
DX: T63.441A Toxic effect of venom of bees, accidental (unintentional), initial encounter (principal); J44.9 Chronic obstructive pulmonary disease, unspecified; E11.40 Type 2 diabetes mellitus with diabetic neuropathy, unspecified; E03.9 Hypothyroidism, unspecified; K21.9 Gastro-esophageal reflux disease without esophagitis; F31.9 Bipolar disorder, unspecified; F17.200 Nicotine dependence, unspecified, uncomplicated; Z88.6 Allergy status to analgesic agent; Z85.51 Personal history of malignant neoplasm of bladder; Z88.8 Allergy status to other drugs, medicaments and biological substances; Z79.82 Long term (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 aspirin; Z79.899 Other long term (current) 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
CPT/HCPCS: 93005; 93010; 94640; 96374; 96375; 99283-25; J1200; J2930

== ENCOUNTER 2018-12-06 19:19 | Emergency (ER) | payer MEDICARE, MEDICAID ==
[~2018-12-06] VITALS: Ht 157.5 cm; Wt 88.6 kg
--- OUTSIDE RECORDS SUMMARY | ~2018-12-06 | XMS | Encounter Summary ---
Demographics + + + | Address | [address] | | | [place] [address] | + + + | Home Phone | | + + + | Preferred Language | Unknown | + + + | Marital Status | Single | + + + | Protestant Affiliation | Unknown | + + + | Race | White | + + + | Ethnic Group | Not or | + + + Author + + + | Author | [facility] | + + + | Organization | [facility] | + + + | Address | Unknown | + + + | Phone | Unavailable | + + + Support + + + + + | Name | Relationship | Address | Phone | + + + + + | Lolis Rodriguez | SCOTTY | [address] | | | | | [address] | | | | | [address] | | + + + + + Care Team Providers + +------+ + | Care Blast Furnace Operator Name | Role | Phone | + +------+ + | James Horne MD | PCP | | + +------+ + Encounter Details +--------+ + + + + | Date | Type | Department | Care Team | Description | +--------+ + + + + | 01/30/ | Telephone | [facility] | Clair Kay MD | | | 2017 | | [facility] | [address] | | | | | [address] | [address] | | | | | [address] | [place], [place] | | | | | [place] | [address] | | | | | [place], [place] | [phone] | | | | | [address] | | | | | | [phone] | | | +--------+ + + + [...]
--- OUTSIDE RECORDS SUMMARY | ~2018-12-06 | XMS | Encounter Summary ---
Demographics + + + | Address | [address] | | | [place] [address] | + + + | Home Phone | | + + + | Preferred Language | Unknown | + + + | Marital Status | Single | + + + | Confucianism Affiliation | Unknown | + + + | Race | White | + + + | Ethnic Group | Not or | + + + Author + + + | Author | [facility] | + + + | Organization | [facility] | + + + | Address | Unknown | + + + | Phone | Unavailable | + + + Support + + + + + | Name | Relationship | Address | Phone | + + + + + | Lolis Rodriguez | [address] | [address] | | | | | [address] | | | | | [address] | | + + + + + Care Team Providers + +------+ + | Care Business Analysis Specialist Name | Role | Phone | + +------+ + | No Pcp Per Patient | PCP | Unavailable | + +------+ + Encounter Details +--------+ + + + + | Date | Type | Department | Care Team | Description | +--------+ + + + + | 09/01/ | Abstract | [facility] | Mahendra Cash, | | | 2013 | | [facility] | MD [facility] | | | | | [address] | [place] [address] | | | | | [address] | [address] | | | | | [address] | [address] [place] | | | | | [phone] | [address] | | | | | | | [...]
--- OUTSIDE RECORDS SUMMARY | ~2018-12-06 | XMS | Encounter Summary ---
Demographics + + + | Address | [address] | | | [place] [address] | + + + | Home Phone | | + + + | Preferred Language | Unknown | + + + | Marital Status | Single | + + + | Advent Affiliation | Unknown | + + + | Race | White | + + + | Ethnic Group | Not or | + + + Author + + + | Author | [facility] | + + + | Organization | [facility] | + + + | Address | Unknown | + + + | Phone | Unavailable | + + + Support + + + + + | Name | Relationship | Address | Phone | + + + + + | Lolis Rodriguez | [place] | [address] | | | | | [address] | | | | | [address] | | + + + + + Care Team Providers + +------+ + | Care Pneudraulic Systems Mechanic Name | Role | Phone | + +------+ + | Mahendra Cash MD | PCP | | + +------+ + Encounter Details +--------+ + + + + | Date | Type | Department | Care Team | Description | +--------+ + + + + | 12/08/ | Document-Sc | Health Information | Unknown . | | | 2014 | anned | Services [address] | | | | | | [address] | | | | | | Mailcode: OP17A | | | | | | [facility] | | | | | | [place], [place] | | | | | | [address] | | | | | | [phone] | | | +--------+ + + + [...]
--- OUTSIDE RECORDS SUMMARY | ~2018-12-06 | XMS | Encounter Summary ---
Demographics + + + | Address | [address] | | | [place] [address] | + + + | Home Phone | | + + + | Preferred Language | Unknown | + + + | Marital Status | Single | + + + | Yazidi Affiliation | Unknown | + + + [...] [address] | | | | [address], [place] | | | | | [address] | | + + + + + Care Team Providers + +------+ + | Care Fisher Trap Name | Role | Phone | + [...]
--- OUTSIDE RECORDS SUMMARY | ~2018-12-06 | XMS | Encounter Summary ---
Demographics + + + | Address | [address] | | | [place] [address] | + + + | Home Phone [...] Author + + + | Author | [facility] | + + + | Organization | [facility] | + + + | Address | Unknown | + + + | Phone | Unavailable | + + + Support + + + + + | Name | Relationship | Address | Phone | + + + + + | Lolis Rodriguez | SCOTTY | [address] | | | | | [address] | | | | | [address] | | + + + + + Care Team Providers + +------+ + | Care Transmitter Tester Name | Role | Phone | + +------+ + | James Boss MD | PCP | Unavailable | + +------+ + Encounter Details +--------+ + + + + | Date | Type | Department | Care Team | Description | +--------+ + + + + | 02/08/ | Results | General Internal | James Boss MD | | | 2001 | Only | Medicine [address] | | | | | [address] | | | | | | Mailcode: L475 | | | | | | Outpatient Clinic | | | | | | [address] | | | | | | [place], [place] | | | | | | [address] | | | | | | [phone] | | | +--------+ + + + [...] | + +--------+ + + + | COAG MASTER PANEL | Routin | 02/08/2002 | | Results for this | | | e | 9:43 AM | | procedure are in the | | | | PST | | results section. | + +--------+ + + + | INR | Routin | 02/08/2002 | | Results for this | | | e | 9:43 AM | | procedure are in the | | | | PST | | results section. | + +--------+ + + + | COMPLETE METABOLIC | Routin | 02/08/2002 | | Results for this | | SET | e | 9:43 AM | | procedure are in the | | (NA,K,CL,CO2,BUN,CRE | | PST | | results section. | | AT,GLUC,CA,AST,ALT,B | | | | | | BRANDO TOTAL,ALK | | | | | | PHOS,ALB,PROT TOTAL) | | | | | + +--------+ + + + | RPR SERUM | Routin | 02/08/2002 | | Results for this | | | e | 9:43 AM | | procedure are in the | | | | PST | | results section. | + +--------+ + + + | SEDIMENTATION RATE | Routin | 02/08/2002 | | Results for this | | | e | 9:43 AM | | procedure are in the | | | | PST | | results section. | + +--------+ + + + | TSH | Routin | 02/08/2002 | | Results for this | | | e | 9:43 AM | | procedure are in the | | | | PST | | results section. | + +--------+ + + + | HEPATITIS B SURFACE | Routin | 02/08/2002 | | Results for this | | AB QUAL, SERUM | e | 9:43 AM | | procedure are in the | | | | PST | | results section. | + +--------+ + + + | HEPATITIS B CORE AB, | Routin | 02/08/2002 | | Results for this | | SERUM | e | 9:43 AM | | procedure are in the | | | | PST | | results section. | + +--------+ + + + | HEPATITIS C VIRUS | Routin | 02/08/2002 | | Results for this | | W/CONFIRMATION | e | 9:43 AM | | procedure are in the | | | | PST | | results section. | + +--------+ + + + | LDL | Routin | 02/08/2002 | | Results for this | | CHOLEST,MEASURED, | e | 9:43 AM | | procedure are in the | | PLASMA | | PST | | results section. | + +--------+ + + + | HDL CHOLESTEROL, | Routin | 02/08/2002 | | Results for this | | PLASMA | e | 9:43 AM | | procedure are in the | | | | PST | | results section. | + +--------+ + + + | TRIGLYCERIDES, | Routin | 02/08/2002 | | Results for this | | PLASMA | e | 9:43 AM | | procedure are in the | | | | PST | | results section. | + +--------+ + + + | LITHIUM, SERUM | Routin | 02/08/2002 | | Results for this | | | e | 9:43 AM | | procedure are in the | | | | PST | | results section. | + +--------+ + + + | CHOLESTEROL TOTAL, | Routin | 02/08/2002 | | Results for this | | PLASMA | e | 9:43 AM | | procedure are in the | | | | PST | | results section. | + +--------+ + + + documented in this encounter Results RPR SERUM (02/08/2002 9:43 AM PST) + + + + + + | Component | Value | Ref Range | Performed | Pathologist | | | | | At | Signature | + + + + + + | RPR SRM | Non-Reactive | | | | | QUAL | | | | | + + + + + + + + | Specimen | + + | | + + + + + + + | Performing | Address | City/State/Zipcode | Phone Number | | Organization | | | | + + + + + | [facility] | [address] | [place] [address] | | | LABORATORY | | | | + + + + + HEPATITIS C AB (02/08/2002 9:43 AM PST) + + + + + + | Component | Value | Ref Range | Performed | Pathologist | | | | | At | Signature | + + + + + + | HEPATITIS C | NegativeComment: | Negative | | | | AB | Test performed by [facility] | | | | | | [facility] | | | | | | Laboratories. | | | | + + + + + + + + | Specimen | + + | | + + + + + + + | Performing | Address | City/State/Zipcode | Phone Number | | Organization | | | | + + + + + | [facility] | [address] | [place] [address] | | | LABORATORY | | | | + + + + + TSH-THYROID STIM HORMONE (02/08/2002 9:43 AM PST) + + + + + + | Component | Value | Ref Range | Performed | Pathologist | | | | | At | Signature | + + + + + + | TSH | 7.60 (H) | 0.28 - 5.00 | | | | | | uIU/ml | | | + + + + + + + + | Specimen | + + | | + + + + + + + | Performing | Address | City/State/Zipcode | Phone Number | | Organization | | | | + + + + + | [facility] | [address] | [place] [address] | | | LABORATORY | | | | + + + + + HEPATITIS B SURFACE AB (02/08/2002 9:43 AM PST) + + + + + + | Component | Value | Ref Range | Performed | Pathologist | | | | | At | Signature | + + + + + + | HEP B | NegativeComment: | Negative | | | | SURFACE AB | Test performed by [facility] | | | | | [facility] | [facility] | | | | | | Laboratories. | | | | + + + + + + + + | Specimen | + + | | + + + + + + + | Performing | Address | City/State/Zipcode | Phone Number | | Organization | | | | + + + + + | [facility] | [address] | [place] [address] | | | LABORATORY | | | | + + + + + HEPATITIS B CORE AB (02/08/2002 9:43 AM PST) + + + + + + | Component | Value | Ref Range | Performed | Pathologist | | | | | At | Signature | + + + + + + | HEPATITIS B | NegativeComment: | Negative | | | | CORE AB, | Test performed by [facility] | | | | | SERUM | [facility] | | | | | | Laboratories. | | | | + + + + + + + + | Specimen | + + | | + + + + + + + | Performing | Address | City/State/Zipcode | Phone Number | | Organization | | | | + + + + + | [facility] | [address] | [place] [address] | | | LABORATORY | | | | + + + + + SEDIMENTATION RATE (02/08/2002 9:43 AM PST) + +-------+ + + + | Component | Value | Ref Range | Performed | Pathologist | | | | | At | Signature | + +-------+ + + + | SEDIMENTATI | 2 | mm/hr | [facility] | | | ON RATE | | | DEPARTMENT | | | | | | OF | | | | | | PATHOLOGY | | + +-------+ + + + + + | Specimen | + + | | + + + + + + + | Performing | Address | City/State/Zipcode | Phone Number | | Organization | | | | + + + + + | [facility] | [address] | [place] [address] | | | PATHOLOGY | [address] | | | + + + + + | [facility] | [address] | [place] [address] | | | PATHOLOGY | [address] | | | + + + + + PROTHROMBIN TIME (02/08/2002 9:43 AM PST) + +---------+ + + + | Component | Value | Ref Range | Performed | Pathologist | | | | | At | Signature | + +---------+ + + + | INR | Clotted | INR | [facility] | | | | | | DEPARTMENT | | | | | | OF | | | | | | PATHOLOGY | | + +---------+ + + + + + | Specimen | + + | | + + + + + + + | Performing | Address | City/State/Zipcode | Phone Number | | Organization | | | | + + + + + | [facility] | [address] | [place] [address] | | | PATHOLOGY | [address] | | | + + + + + | [facility] | [address] | [place] [address] | | | PATHOLOGY | [address] | | | + + + + + COAG MASTER PANEL (02/08/2002 9:43 AM PST) + +---------+ + + + | Component | Value | Ref Range | Performed | Pathologist | | | | | At | Signature | + +---------+ + + + | INR | Clotted | INR | [facility] | | | | | | DEPARTMENT | | | | | | OF | | | | | | PATHOLOGY | | + +---------+ + + + + + | Specimen | + + | | + + + + + + + | Performing | Address | City/State/Zipcode | Phone Number | | Organization | | | | + + + + + | [facility] | [address] | [place] [address] | | | PATHOLOGY | [address] | | | + + + + + | [facility] | [address] | [place] [address] | | | PATHOLOGY | [address] | | | + + + + + LITHIUM, SERUM (02/08/2002 9:43 AM PST) + +---------+ + + + | Component | Value | Ref Range | Performed | Pathologist | | | | | At | Signature | + +---------+ + + + | LITHIUM | 2.4 (*) | 0.5 - 1.5 | [facility] | | | SERUM | | mmol/L | DEPARTMENT | | | | | | OF | | | | | | PATHOLOGY | | + +---------+ + + + + + | Specimen | + + | | + + + + + | Narrative | Performed At | + + + | [id number] [place] Phoned | [facility] | | | DEPARTMENT OF | | | PATHOLOGY | + + + + + + + + | Performing | Address | City/State/Zipcode | Phone Number | | Organization | | | | + + + + + | [facility] | [address] | [place] [address] | | | PATHOLOGY | [address] | | | + + + + + | [facility] | [address] | [place] [address] | | | PATHOLOGY | [address] | | | + + + + + HDL CHOLESTEROL (02/08/2002 9:43 AM PST) + + + + + + | Component | Value | Ref Range | Performed | Pathologist | | | | | At | Signature | + + + + + + | HDL | 26 (L)Comment: | >40 mg/dL | [facility] | | | CHOLESTEROL | HDL Reference Range: | | DEPARTMENT | | | | High | | OF | | | | Risk: <40 | | PATHOLOGY | | | | Desirable: | | | | | | >=60 | | | | + + + + + + + + | Specimen | + + | | + + + + + + + | Performing | Address | City/State/Zipcode | Phone Number | | Organization | | | | + + + + + | [facility] | [address] | [place] [address] | | | PATHOLOGY | [address] | | | + + + + + | [facility] | [address] | [place] [address] | | | PATHOLOGY | [address] | | | + + + + + COMP METABOLIC SET (02/08/2002 9:43 AM PST) + +---------+ + + + | Component | Value | Ref Range | Performed | Pathologist | | | | | At | Signature | + +---------+ + + + | GLUCOSE, | 85 | 65 - 110 mg/dL | [facility] | | | PLASMA | | | DEPARTMENT | | | (LAB) | | | OF | | | | | | PATHOLOGY | | + +---------+ + + + | BUN, PLASMA | 13 | 6 - 20 mg/dL | [facility] | | | (LAB) | | | DEPARTMENT | | | | | | OF | | | | | | PATHOLOGY | | + +---------+ + + + | CREATININE | 0.8 | 0.6 - 1.1 mg/dL | [facility] | | | PLASMA | | | DEPARTMENT | | | (LAB) | | | OF | | | | | | PATHOLOGY | | + +---------+ + + + | TOTAL | 6.2 | 6.1 - 7.9 g/dL | [facility] | | | PROTEIN, | | | DEPARTMENT | | | PLASMA | | | OF | | | (LAB) | | | PATHOLOGY | | + +---------+ + + + | ALBUMIN, | 4.0 | 3.5 - 4.7 g/dL | [facility] | | | PLASMA | | | DEPARTMENT | | | (LAB) | | | OF | | | | | | PATHOLOGY | | + +---------+ + + + | CALCIUM, | 9.4 | 8.5 - 10.5 | [facility] | | | PLASMA | | mg/dL | DEPARTMENT | | | (LAB) | | | OF | | | | | | PATHOLOGY | | + +---------+ + + + | BILIRUBIN | 0.4 | 0.3 - 1.2 mg/dL | [facility] | | | TOTAL | | | DEPARTMENT | | | | | | OF | | | | | | PATHOLOGY | | + +---------+ + + + | ALK PHOS | 60 | 42 - 98 U/L | [facility] | | | | | | DEPARTMENT | | | | | | OF | | | | | | PATHOLOGY | | + +---------+ + + + | AST(SGOT) | 39 | 15 - 41 U/L | [facility] | | | | | | DEPARTMENT | | | | | | OF | | | | | | PATHOLOGY | | + +---------+ + + + | SODIUM, | 129 (L) | 136 - 145 | [facility] | | | PLASMA | | mmol/L | DEPARTMENT | | | (LAB) | | | OF | | | | | | PATHOLOGY | | + +---------+ + + + | POTASSIUM, | 4.7 | 3.5 - 5.1 | [facility] | | | PLASMA | | mmol/L | DEPARTMENT | | | (LAB) | | | OF | | | | | | PATHOLOGY | | + +---------+ + + + | CHLORIDE, | 97 (L) | 98 - 107 mmol/L | [facility] | | | PLASMA | | | DEPARTMENT | | | (LAB) | | | OF | | | | | | PATHOLOGY | | + +---------+ + + + | TOTAL CO2, | 22 (L) | 23 - 29 mmol/L | [facility] | | | PLASMA | | | DEPARTMENT | | | (LAB) | | | OF | | | | | | PATHOLOGY | | + +---------+ + + + | ALT (SGPT) | 40 | 13 - 48 U/L | [facility] | | | | | | DEPARTMENT | | | | | | OF | | | | | | PATHOLOGY | | + +---------+ + + + + + | Specimen | + + | | + + + + + + + | Performing | Address | City/State/Zipcode | Phone Number | | Organization | | | | + + + + + | [facility] | [address] | [place] [address] | | | PATHOLOGY | [address] | | | + + + + + | [facility] | [address] | [place] [address] | | | PATHOLOGY | [address] | | | + + + + + LDL CHOLEST,MEASURED (02/08/2002 9:43 AM PST) + + + + + + | Component | Value | Ref Range | Performed | Pathologist | | | | | At | Signature | + + + + + + | LDL CHOLEST | Intrf sub | <130 mg/dL | [facility] | | | | | | DEPARTMENT | | | | | | OF | | | | | | PATHOLOGY | | + + + + + + + + | Specimen | + + | | + + + + + + + | Performing | Address | City/State/Zipcode | Phone Number | | Organization | | | | + + + + + | [facility] | [facility] | [place] [address] | | | PATHOLOGY | [address] | | | + + + + + | [facility] | [facility] | [place] [address] | | | PATHOLOGY | [address] | | | + + + + + TRIGLYCERIDES (02/08/2002 9:43 AM PST) + + + + + + | Component | Value | Ref Range | Performed | Pathologist | | | | | At | Signature | + + + + + + | TRIGLYCERID | 1505 (H)Comment: | <200 mg/dL | [facility] | | | ES | Triglyceride | | DEPARTMENT | | | | Reference Range: | | OF | | | | | | PATHOLOGY | | | | Normal: <150 | | | | | | Borderline High: | | | | | | 150 - 199 | | | | | | | | | | | | High: 200 - 499 | | | | | | | | | | | | Very High: >=500 | | | | + + + + + + + + | Specimen | + + | | + + + + + + + | Performing | Address | City/State/Zipcode | Phone Number | | Organization | | | | + + + + + | [facility] | [address] | [place] [address] | | | PATHOLOGY | [address] | | | + + + + + | [facility] | [address] | [place] [address] | | | PATHOLOGY | [address] | | | + + + + + CHOLESTEROL, TOTAL (02/08/2002 9:43 AM PST) + + + + + + | Component | Value | Ref Range | Performed | Pathologist | | | | | At | Signature | + + + + + + | CHOLESTEROL | 314 (H)Comment: | <200 mg/dL | [facility] | | | (LAB) | Cholesterol Reference | | DEPARTMENT | | | | Range: | | OF | | | | Desirable: <200 | | PATHOLOGY | | | | Borderline | | | | | | High: 200 - 239 | | | | | | | | | | | | High: >=240 | | | | + + + + + + + + | Specimen | + + | | + + + + + + + | Performing | Address | City/State/Zipcode | Phone Number | | Organization | | | | + + + + + | [facility] | [address] | [place] [address] | | | PATHOLOGY | [address] | | | + + + + + | [facility][1] | [address] | [place] [address] | | | PATHOLOGY | [address] | | | + + + + + documented in this encounter Visit Diagnoses Not on filedocumented in this encounter"
--- OUTSIDE RECORDS SUMMARY | ~2018-12-06 | XMS | Encounter Summary ---
Demographics + + + | Address | [address] | | | [place] [address] | + + + | Home Phone | | + + + | Preferred Language | Unknown | + + + | Marital Status | Single | + + + | Presybeterian Affiliation | Unknown | + + + | Race | White | + + + | Ethnic Group | Not or | + + + Author + + + | Author | [facility] | + + + | Organization | [facility] | + + + | Address | Unknown | + + + | Phone | Unavailable | + + + Support + + + + + | Name | Relationship | Address | Phone | + + + + + | Lolis Rodriguez | SCOTTY | [address] | | | | | [address] [place] | | | | | [address] | | + + + + + Care Team Providers + +------+ + | Care Wastewater Project Manager Name | Role | Phone [...] | +--------+ + + + + | 03/29/ | Clinical | [facility] | Sree Abdul Nurse | Central Line Care | | 2016 | Support | [facility] [place] | [address] | | | | Staff | [address] | [address] [place], [place] | | | | | [address] [place], [place] | [address] | | | | | [address] | [phone] | | | | | [phone] | | | | | | | Sree Jain Ma | | | | | | Schedule [place], | | | | | | [place] [address] | | +--------+ + + + + [...] + + + | Blood Pressure | 131/67 | 03/29/2015 3:35 PM | | | | | PST | | + + + + + | Pulse | 75 | 03/29/2015 3:35 PM | | | | | PST | | + + + + + | Temperature | 36.7 C (98.1 F) | 03/29/2015 3:35 PM | | | | | PST | | + + + + + | Respiratory Rate | 16 | 03/29/2015 3:35 PM | | | | | PST | | + + + + + | Oxygen Saturation | 98% | 03/29/2015 3:35 PM | | | [...] in this encounter Progress Notes Tari Shankar, RN - 03/29/2015 3:43 PM Faustina Javed is here today for port flush. Por t located in right chest. It was accessed, flushed and deaccessed per protocol. Blood return Present. Site unremarkable, labs were drawn and reviewed on previous date.. Patient tolera carla procedure without complication. At discharge Alert & Oriented x3, no acute distress and mood and affect appropriate. documented in this en counter Plan of Treatment Not on filedocumented as of this encounter Procedures + +--------+ + + + | Procedure Name | Priori | Date/Time | Associated Diagnosis | Comments | | | ty | | | | + +--------+ + + + | NURSING | Routin | 03/29/2015 | History of colonic | | | COMMUNICATION #3 - | e | 4:47 PM | polyps | | | [facility] | | PST | | | + +--------+ + + + | NURSING | Routin | 03/29/2015 | History of colonic | | | COMMUNICATION #2 - | e | 4:47 PM | polyps | | | [facility] | | PST | | | + +--------+ + + + | NURSING | Routin | 03/29/2015 | History of colonic | | | COMMUNICATION #1 - | e | 4:47 PM | polyps | | | [facility] | | PST | | | + +--------+ + + + documented in this encounter Visit Diagnoses + + | Diagnosis | + + | History of colonic polyps Personal history of colonic polyps | + + documented in this encounter Administered Medications + +---------+ +-------+------+------+ | Medication Order | MAR | Action | Dose | Rate | Site | | | Action | Date | | | | + +---------+ +-------+------+------+ | heparin 100 unit/mL IV flush | New Bag | 03/29/19 | 500 | | | | 500 Units 500 Units, | | 16 1:00 | Units | | | | intravenous, NEEDED, Starting | | PM PST | | | | | Buffy 03/29/15 at 1647, Until Buffy | | | | | | | 03/29/15 at 2247, line patency | | | | | | + +---------+ +-------+------+------+ +---+---+ | | | +---+---+ documented in this encounter"
--- OUTSIDE RECORDS SUMMARY | ~2018-12-06 | XMS | Encounter Summary ---
Demographics + + + | Address | [address] | | | [place] [address] | + + + | Home Phone | | + + + | Preferred Language | Unknown | + + + | Marital Status | Single | + + + | Mosque Affiliation | Unknown | + + + | Race | White | + + + | Ethnic Group | Not or | + + + Author + + + | Author | [facility] | + + + | Organization | [facility] | + + + | Address | Unknown | + + + | Phone | Unavailable | + + + Support + + + + + | Name | Relationship | Address | Phone | + + + + + | Lolis Rodriguez | SCOTTY | [address] | | | | | [address] | | | | | [address] | | + + + + + Care Team Providers + +------+ + | Care Collet Driller Name | Role | Phone | + [...] | +--------+ + + + + | 11/15/ | Outside | [facility] | Mahendra Cash, | Central Line Care | | 2015 | Collaborati | [facility] | MD [address] | | | | ve Order | [address] | GROUP [place] [address] | | | | | [address] [place], [place] | [address] | | | | | [address] | [address] [place], [place] | | | | | [phone] | [address] | | | | | | | [...]
--- OUTSIDE RECORDS SUMMARY | ~2018-12-06 | XMS | Encounter Summary ---
Demographics + + + | Address | [address] | | | [place] [address] | + + + | Home Phone [...] [address] | | | | | [address] [place] | | | | | [address] | | + + + + + Care Team Providers + +------+ + | Care Medicare Interviewer Name | Role | Phone | + [...] as of this encounter Progress Notes Interface, Batch Maker In - 08/24/2005 3:03 AM PDTCLINIC DATE: [...] in 6 weeks. James Boss M.D., M.P.H. [facility] / [id number] / [id number] / [id number] / Tdocumented in this encounter Plan of Treatment Not on filedocumented as of this encounter Visit Diagnoses Not on filedocumented in this encounter
--- OUTSIDE RECORDS SUMMARY | ~2018-12-06 | XMS | Encounter Summary ---
Demographics + + + | Address | [address] | | | [place] [address] | + + + | Home Phone | | + + + | Preferred Language | Unknown | + + + | Marital Status | Single | + + + | Congregational Affiliation | Unknown | + + + | Race | White | + + + | Ethnic Group | Not or | + + + Author + + + | Author | [facility] | + + + | Organization | [facility] | + + + | Address | Unknown | + + + | Phone | Unavailable | + + + Support + + + + + | Name | Relationship | Address | Phone | + + + + + | Lolis Rodriguez | SCOTTY | [address] | | | | | [address] | | | | | [address] | | + + + + + Care Team Providers + +------+ + | Care Automation Application Engineer Name | Role | Phone | + [...] | | | al | MEDICAL | [address] | | | | | status(V45.8 | GROUP | [address] | | | | | 9) | [place] | [place], [place] | | | | | Procedures | [address] | [address] | | | | | PORT FLUSH | [address] | Phone: | | | | | LABS | [address] | [phone] | | | | | | [place], [place] | Fax: | | | | | | [address] | [phone] | | | | | | Phone: | | | | | | | [phone] | | | | | | | Fax: | | | | | | | [phone] | | +--------+--------+ + + + + Encounter Details +--------+ + + + + | Date | Type | Department | Care Team | Description | +--------+ + + + + | 10/10/ | [facility] | [facility] | Sree Abdul Nurse | Central Line Care | | 2014 | l Support | [facility] [place] | [address] | | | | Staff | [address] | [address] [place], [place] | | | | | [address] [place], [place] | [address] | | | | | [address] | [phone] | | | | | [phone] | | | | | | | Sree Jain Ma | | | | | | Schedule [place], | | | | | | [place] [address] | | +--------+ + + + + [...]
--- OUTSIDE RECORDS SUMMARY | ~2018-12-06 | XMS | Encounter Summary ---
Demographics + + + | Address | [address] | | | [place] [address] | + + + | Home Phone [...] [address] | | | | | [address] [place] | | | | | [address] | | + + + + + Care Team Providers + +------+ + | Care Painter Ski Edge Name | Role | Phone | + [...] | | | postprocedur | LEGACY | [place] | | | | | al | MEDICAL | [address] | | | | | status(V45.8 | GROUP | [address] | | | | | 9) | [place] | [place], [place] | | | | | Procedures | [address] | [address] | | | | | PORT FLUSH | [address] | Phone: | | | | | LABS | [address] | [phone] | | | | | | [place], [place] | Fax: | | | | | | [address] | [phone] | | | | | | Phone: | | | | | | | [phone] | | | | | | | Fax: | | | | | | | [phone] | | +--------+--------+ + + + + Encounter Details +--------+ + + + + | Date | Type | Department | Care Team | Description | +--------+ + + + + | 07/21/ | [facility] | [facility] | Sree Abdul Nurse | Central Line Care | | 2013 | l Support | [facility] [place] | [address] | ([facility]) | | | Staff | [address] | [address] [place], [place] | | | | | [address] [place], [place] | [address] | | | | | [address] | [phone] | | | | | [phone] | | | | | | | Sree Jain Ma | | | | | | Schedule [place], | | | | | | [place] [address] | | +--------+ + + + + [...]
--- OUTSIDE RECORDS SUMMARY | ~2018-12-06 | XMS | Encounter Summary ---
Demographics + + + | Address | [address] | | | [place] [address] | + + + | Home Phone [...] | Author | [facility] | + + + | Organization | [facility] | + + + | Address | Unknown | + + + | Phone | Unavailable | + + + Support + + + + + | Name | Relationship | Address | Phone | + + + + + | Lolis Rodriguez | SCOTTY | [address] | | | | | [address] | | | | | [address] | | + + + + + Care Team Providers + +------+ + | Care Plant Guard Name | Role | Phone | + [...] [id number] | | | | | | [place], [place] | | | | | | [address] | | | | | | [phone] | | | +--------+ + + + [...] | + + + + + | [facility] | [address] | [place] [address] | | | PATHOLOGY | [address] [...] | + + + + + | [facility] | [address] | [place] [address] | | | PATHOLOGY | [address] [...] | + + + + + | [facility] | [address] | [place] [address] | | | PATHOLOGY | [address] [...] | + + + + + | [facility] | [address] | [place] [address] | | | PATHOLOGY | [address] [...] | + + + + + | [facility] | [address] | [place] [address] | | | PATHOLOGY | [address] [...] | + + + + + | [facility] | [address] | [place] [address] | | | PATHOLOGY | [address] [...] | + + + + + | [facility] | [address] | [place] [address] | | | PATHOLOGY | [address] [...] | + + + + + | [facility] | [address] | [place] [address] | | | PATHOLOGY | [address] | | | + + + + + documented in this encounter Visit Diagnoses Not on filedocumented in this encounter"
--- OUTSIDE RECORDS SUMMARY | ~2018-12-06 | XMS | Encounter Summary ---
Demographics + + + | Address | [address] | | | [place] [address] | + + + | Home Phone [...] BOX | | | | | [address] | | | | | [address] | | + + + + + Care Team Providers + +------+ + | Care Fitness Sales Consultant Name | Role | Phone | [...] as of this encounter Progress Notes Interface, Short Range Air Defense Artillery In - 08/24/2005 3:03 AM PDTCLINIC DATE: [...] M.D., M.P.H. [facility] / [id number] / [id number] / [id number] / Tdocumented in this encounter Plan of Treatment Not on filedocumented as of this encounter Visit Diagnoses Not on filedocumented in this encounter
--- OUTSIDE RECORDS SUMMARY | ~2018-12-06 | XMS | Encounter Summary ---
Demographics + + + | Address | [address] | | | [place] [address] | + + + | Home Phone | | + + + | Preferred Language | Unknown | + + + | Marital Status | Single | + + + | Roman Catholic Affiliation | Unknown | + + [...] [address] | | | | | [address] [place] | | | | | [address] | | + + + + + Care Team Providers + +------+ + | Care Parking Meter Mechanic Name | Role | Phone | + +------+ + | Mahendra Cash MD | PCP | | + +------+ + Encounter Details +--------+ + + + + | Date | Type | Department | Care Team | Description | +--------+ + + + + | 12/08/ | Document-Sc | Health Information | Unknown . | | | 2014 | anned | Services [address] | | | | | | [address] | | | | | | Mailcode: OP17A | | | | | | [facility] | | | | | | [place], [place] | | | | | | [address] | | | | | | [phone] | | | +--------+ + + + [...]
--- OUTSIDE RECORDS SUMMARY | ~2018-12-06 | XMS | Encounter Summary ---
Demographics + + + | Address | [address] | | | [place] [address] | + + + | Home Phone [...] + + + | Author | [facility] | | | and Ramakrishna[place] | + + + | Organization | [facility] | | | and [place] | + + + | Address | Unknown | + + + | Phone | Unavailable | + + + Support + + +---------+ + | Name | Relationship | Address | Phone | + + +---------+ + | Clair Foreamn | ECON | Unknown | | + + +---------+ + Care Team Providers + +------+ + | Care Cook Larder Name | Role | Phone | + [...] + | 12/01/ | Telephone | [facility] | iRgo Muniz | Other | | 2018 | | ORTHOPEDIC SURGERY | [address] | | | | | [address] | [address] | | | | | [place], [place] | [place] [address] | | | | | [address] | [phone] | | | | | [phone] | | | +--------+ + + + [...]
--- OUTSIDE RECORDS SUMMARY | ~2018-12-06 | XMS | Encounter Summary ---
Demographics + + + | Address | [address] | | | [place] [address] | + + + | Home Phone | | + + + | Preferred Language | Unknown | + + + | Marital Status | Single | + + + | Hoahaoism Affiliation [...] BOX | | | | | [address] | | | | | [address] | | + + + + + Care Team Providers + +------+ + | Care Clinical Research Nurse Name | Role | Phone | + [...] Care | | 2014 | Collaborati | [facility] [place] | MD MCKENNA [facility] | | | | ve Order | [address] | [place] [address] | | | | | [address] [place], [place] | [address] | | | | | [address] | [address] [place], [place] | | | | | [phone] | [address] | | | | | | | [...]
--- OUTSIDE RECORDS SUMMARY | ~2018-12-06 | XMS | Clinical Summary ---
Demographics + + + | Address | [address] | | | [place] [address] | + + + | Home Phone | | + + + | Preferred Language | Unknown | + + + | Marital Status | | + + + | Sabianism Affiliation | Unknown | + + + | Race | Unknown | + + + | Ethnic Group | Unknown | + + + Author + + + | Author | [facility] (Historical as of | | | 10-09-18) | + + + | Organization | [facility] (Historical as of | | | 10-09-18) | + + + | Address | Unknown | + + + | Phone | Unavailable | + + + Care Team Providers + +------+ + | Care Search Consultant Name | Role | Phone | [...] +------+-------+ + | MEDICARE | MEDICA | [id number] | | | [address] | | | RE | | | | [place] [address] | | | IP-OP | | | [...] | [birth year] | Home: | [address] | | | al/Fam | | 1961 | [phone] [address] [place], | | | de | | | [address] | [place] [address] | + +--------+ +--------+ + +"
--- OUTSIDE RECORDS SUMMARY | ~2018-12-06 | XMS | Encounter Summary ---
Demographics + + + | Address | [address] | | | [place] [address] | + + + | Home Phone [...] [address] | | | | | [address] | | | | | [address] | | + + + + + Care Team Providers + +------+ + | Care Hog Confinement System Manager Name | Role | Phone | [...] | | | | | Khadra Quan [place], | | | | | | [place] [address] | | | +--------+ + + + [...]
--- OUTSIDE RECORDS SUMMARY | ~2018-12-06 | XMS | Clinical Summary ---
Demographics + + + | Address | [address] | | | [place] [address] | + + + | Home Phone [...] [place] | | | | | [address] | | + + + + + Care Team Providers + +------+ + | Care Statement Services Representative Name | Role | Phone | + +------+ + | James Horne MD | PCP | | + +------+ + Source Comments SH[facility] is fully live on both [facility] and [facility] Allergies + + + + + + [...] | 04/1 | | Activ | | [id number] | needed. | | | 1/20 | [...] | | | | | | | [address] | | + +--------+ +--------+ + +--------+ + +--------+ +--------+ + + | Guarantor Name | Accoun | Relation to | Date | Phone | Billing Address | | | t Type | Patient | of | | | | | | | | | | + +--------+ +--------+ + + | Laury Crockett | Person | Self | [birth year] | [address] | | | al/Fam | | 1961 | [phone] | [place] | | | de | | | 9 (Home) | [address] | + +--------+ +--------+ + +
--- OUTSIDE RECORDS SUMMARY | ~2018-12-06 | XMS | Encounter Summary ---
Demographics + + + | Address | [address] | | | [place] [address] | + + + | Home Phone [...] [address]OX | | | | | [address] | | | | | [address] | | + + + + + Care Team Providers + +------+ + | Care Janitor Supervisor Name | Role | Phone | [...] as of this encounter Progress Notes Interface, Rubber Compounder Formulator In - 09/20/2005 1:11 AM PDTCLINIC DATE: 02/08/2002 [facility] This is a conference/coordination of care visit consisting of 30 minutes of dnco-gc-bybu time with the patient. CHIEF COMPLAINT: "I am having hard time staying awake." HISTORY OF PRESENT ILLNESS: The patient relates a history of chronic fatigue, decreased memory, and right upper quadrant pain. Her right upper quadrant pain has been evaluated in the past by Gastroenterology here at [facility]. Additionally, more recently, she has developed a leg injury that has resulted in low back pain and right leg pain. She is currently being treated by Dr. Roberts in [place] who has scheduled her for an MRI [...] and tobacco use since 1976. CURRENT MEDICATIONS: [place] 300 mg 5 times a day, Paxil [...] her records from Dr. Dougie Gaviria of [place] to be transferred here to [facility]. The patient will return to the clinic at the next available appointment for a complete physical examination. James Boss M.D., M.P.H. JA[facility]Y / HS [id number] / [id number] / [id number] / Tdocumented in this encounter Plan of Treatment Not on filedocumented as of this encounter Visit Diagnoses Not on filedocumented in this encounter
--- OUTSIDE RECORDS SUMMARY | ~2018-12-06 | XMS | Encounter Summary ---
Demographics + + + | Address | [address] | | | [place] [address] | + + + | Home Phone [...] BOX | | | | | [address] | | | | | [address] | | + + + + + Care Team Providers + +------+ + | Care Front End Web Designer Name | Role | Phone | + [...] | | | | | Khadra Quan [place], | | | | | | [place] [address] | | | +--------+ + + + [...] | 0 | 06/04/19 | | | [id number] | needed. | | | 16 | [...]
--- OUTSIDE RECORDS SUMMARY | ~2018-12-06 | XMS | Encounter Summary ---
Demographics + + + | Address | [address] | | | [place] [address] | + + + | Home Phone [...] BOX | | | | | [address] | | | | | [address] | | + + + + + Care Team Providers + +------+ + | Care Upper Trimmer Name | Role | Phone | + [...] | | | | | Khadra Quan [place], | | | | | | [place] [address] | | | +--------+ + + + [...] | 0 | 06/04/19 | | | [id number] | needed. | | | 16 | [...]
--- OUTSIDE RECORDS SUMMARY | ~2018-12-06 | XMS | Encounter Summary ---
Demographics + + + | Address | [address] | | | [place] [address] | + + + | Home Phone [...] Author + + + | Author | [facility] | + + + | Organization | [facility] | + + + | Address | Unknown | + + + | Phone | Unavailable | + + + Support + + + + + | Name | Relationship | Address | Phone | + + + + + | Lolis Rodriguez | SCOTTY | [address] | | | | | [address] | | | | | [address] | | + + + + + Care Team Providers + +------+ + | Care Network Operations Center Technician Name | Role | Phone | [...] | | genital | [facility] | [address] | | | | | prolapse, | Hospital | [facility] | | | | | unspecified | [address] | [address] | | | | | Procedures | [address] | [place], [place] | | | | | [place] NEW | [address] | [address] | | | | | PATIENT | [place], | Phone: | | | | | [place] | [place] [address] | [phone] | | | | | EST PATIENT | Phone: | Fax: | | | | | [place] [place] | [phone] | [phone] | | | | | | Fax: | | | | | | | [phone] | | +--------+--------+ + + + + Encounter Details +--------+---------+ + + + | Date | Type | Department | Care Team | Description | +--------+---------+ + + + | 08/18/ | [facility] | Clair Kay MD | Pelvic pain (Primary | | 2017 | Visit | [facility] | [address] | Dx); Pain of right | | | | [address] | [address] | hip joint; Mixed | | | | [address] | [place], [place] | incontinence urge | | | | [facility] | [address] | and stress | | | | [place], [place] | [phone] | (male)(female) | | | | [address] | | | | | | [phone] | | | +--------+---------+ + + + [...] to decrease the ne rve sensitivities. 2. [place] - please stop by [employer] on your way out of town to scrap picker "astroglide" for lubrication. 3. Follow up - please make an appointment in 3 months after starting PT. Please sign up for MyChart so we can communicate about your gabapentin dosing. I have included below some information about pelvic muscle pain. Clair Brown MD Bleach Packer Division of Urogynecology and Reconstructive Pelvic Surgery Department of [facility] Levator Myalgia The muscles along the base [...] activities or seeing a sp orts medicine/ community living specialist. & Chronic Pain Levator myalgia can be associated with chronic pain. In certain cases we will recommend a set painter to help with your care. documented [...] on the patient intake questionnaire (scanned into [employer] and with the patient. The summary is [...] be found in the scanned documents in [employer] They have also been entered into rele vant carson of the [employer] database. Past Medical History: Diagnosis Date Abdominal [...] of muscle SVT (supraventricular tachycardia) ([facility]) 1980 Thoracic spondylosis without myelopathy [...] by mouth once daily., Disp: , Rfl: ccubnlyu-ekmrbpgox-gqgivxeqibojen 3.5-10,000-1 mg/mL-unit/mL-% otic solution, Instill in e [...]
--- OUTSIDE RECORDS SUMMARY | ~2018-12-06 | XMS | Encounter Summary ---
Demographics + + + | Address | [address] | | | [place] [address] | + + + | Home Phone [...] BOX | | | | | [address] [place] | | | | | [address] | | + + + + + Care Team Providers + +------+ + | Care Derrickman Helper Name | Role | Phone | [...] Care | | 2015 | Collaborati | [facility] [place] | MD CLARISA CALLES | | | | ve Order | [address] | [place] [address] | | | | | [address] [place], [place] | [address] | | | | | [address] | [address] [place], [place] | | | | | [phone] | [address] | | | | | | | [...]
--- OUTSIDE RECORDS SUMMARY | ~2018-12-06 | XMS | Encounter Summary ---
Demographics + + + | Address | [address] | | | [place] [address] | + + + | Home Phone [...] Author + + + | Author | [facility] | + + + | Organization | [facility] | + + + | Address | Unknown | + + + | Phone | Unavailable | + + + Support + + + + + | Name | Relationship | Address | Phone | + + + + + | Lolis Rodriguez | SCOTTY | [address] | | | | | [address] | | | | | [address] | | + + + + + Care Team Providers + +------+ + | Care Cable Swager Name | Role | Phone | + [...] | | | | | [place], | | | | | | [place] [address] | | | +--------+ + + + [...]
--- OUTSIDE RECORDS SUMMARY | ~2018-12-06 | XMS | Encounter Summary ---
Demographics + + + | Address | [address] | | | [place] [address] | + + + | Home Phone [...] Author + + + | Author | [facility] | + + + | Organization | [facility] | + + + | Address | Unknown | + + + | Phone | Unavailable | + + + Support + + + + + | Name | Relationship | Address | Phone | + + + + + | Lolis Rodriguez | SCOTTY | [address] | | | | | [address] | | | | | [address] | | + + + + + Care Team Providers + +------+ + | Care Anodic Treater Name | Role | Phone | + [...] Care | | 2014 | Collaborati | [facility] [place] | MD MCKENNA [facility] | | | | ve Order | [address] | GROUP [place] [address] | | | | | [address] [place], [place] | [address] | | | | | [address] | [address] [place], [place] | | | | | [phone] | [address] | | | | | | | [...]
--- OUTSIDE RECORDS SUMMARY | ~2018-12-06 | XMS | Encounter Summary ---
Demographics + + + | Address | [address] | | | [place] [address] | + + + | Home Phone [...] [address] | | | | | [address], [place] | | | | | [address] | | + + + + + Care Team Providers + +------+ + | Care Trial Consultant Name | Role | Phone | [...] + + + | [facility] | [address] | [place] [address] | | | LABORATORY | | | [...] | + + + + + | [facility] | [address] | [place] [address] | | | LABORATORY | | | [...] + + + | [facility] | [address] | [place] [address] | | | LABORATORY | | | [...] + + + | [facility] | [address] | [place] [address] | | | LABORATORY | | | [...] | + + + + + | [facility] | [address] | [place] [address] | | | LABORATORY | | | [...] | + + + + + | [facility] | [address] | [place] [address] | | | LABORATORY | | | [...] + + + | [facility] | [address] | [place] [address] | | | LABORATORY | | | [...] | + + + + + | [facility] DEPARTMENT OF | [address] | [place] [address] | | | PATHOLOGY | [address] | | | + + + + + | [place] DEPARTMENT OF | [address] | [place] [address] | | | PATHOLOGY | [address] [...] [facility] | [address] | [place] [address] | | | PATHOLOGY | [address] | | | + + + + + | [facility] | [address] | [place] [address] | | | PATHOLOGY | [address] | | | + + + + + documented in this encounter Visit Diagnoses Not on filedocumented in this encounter"
--- OUTSIDE RECORDS SUMMARY | ~2018-12-06 | XMS | Encounter Summary ---
Demographics + + + | Address | [address] | | | [place] [address] | + + + | Home Phone [...] + + + | Author | [facility] | + + + | Organization | [facility] | + + + | Address | Unknown | + + + | Phone | Unavailable | + + + Support + + + + + | Name | Relationship | Address | Phone | + + + + + | Lolis Rodriguez | SCOTTY | [address] | | | | | [address] | | | | | [address] | | + + + + + Care Team Providers + +------+ + | Care Telephone Installer Name | Role | Phone | [...] | | | al | MEDICAL | [address] | | | | | status(V45.8 | GROUP | [address] | | | | | 9) | [place] | [place], [place] | | | | | Procedures | [address] | [address] | | | | | [place] | [address] | Phone: | | | | | LABS | [address] | [phone] | | | | | | [place], [place] | Fax: | | | | | | [address] | [phone] | | | | | | Phone: | | | | | | | [phone] | | | | | | | Fax: | | | | | | | [phone] | | +--------+--------+ + + + + Encounter Details +--------+ + + + + | Date | Type | Department | Care Team | Description | +--------+ + + + + | 10/10/ | [facility] | [facility] | Sree Abudl Nurse | Central Line Care | | 2014 | l Support | [facility] [place] | [address] | | | | Staff | [address] | [address] [place], [place] | | | | | [address] [place], [place] | [address] | | | | | [address] | [phone] | | | | | [phone] | | | | | | | Sree Jain Ma | | | | | | Schedule [place], | | | | | | [place] [address] | | +--------+ + + + + [...]
--- OUTSIDE RECORDS SUMMARY | ~2018-12-06 | XMS | Encounter Summary ---
Demographics + + + | Address | [address] | | | [place] [address] | + + + | Home Phone [...] [address]OX | | | | | [address] | | | | | [address] | | + + + + + Care Team Providers + +------+ + | Care Supervising Producer Name | Role | Phone | + +------+ + | No Pcp Per Patient | PCP | Unavailable | + +------+ + Encounter Details +--------+ + + + + | Date | Type | Department | Care Team | Description | +--------+ + + + + | 09/01/ | Abstract | [facility] | Mahendra Cash, | | | 2013 | | [facility] [place] | MD MCKENNA [facility] | | | | | [address] | [place] [address] | | | | | [address] [place] | [address] | | | | | [address] | [address] [place] | | | | | [phone] | [address] | | | | | | | [...]
--- OUTSIDE RECORDS SUMMARY | ~2018-12-06 | XMS | Encounter Summary ---
Demographics + + + | Address | [address] | | | [place] [address] | + + + | Home Phone [...] [address] | | | | | [address] | | | | | [address] | | + + + + + Care Team Providers + +------+ + | Care Manufacturers Agent Name | Role | Phone | [...] as of this encounter Progress Notes Interface, Quantitative Associate In - 09/20/2005 1:11 AM PDTCLINIC DATE: 02/08/2002 INTERNAL MEDICINE CLINIC This is a conference/coordination of care visit consisting of 30 minutes of wuxh-rj-hamx time with the patient. CHIEF COMPLAINT: "I am having hard time staying awake." HISTORY OF PRESENT ILLNESS: The patient relates a history of chronic fatigue, decreased memory, and right upper quadrant pain. Her right upper quadrant pain has been evaluated in the past by Gastroenterology here at [facility]. Additionally, more recently, she has developed a leg injury that has resulted in low back pain and right leg pain. She is currently being treated by Dr. Roberts in [place] who has scheduled her for an MRI [...] and tobacco use since 1976. CURRENT MEDICATIONS: [place] 300 mg 5 times a day, Paxil [...] her records from Dr. Dougie Gaviria of [place] to be transferred here to [facility]. The patient will return to the clinic at the next available appointment for a complete physical examination. James Boss M.D., M.P.H. [facility] / HS [id number] / [id number] / [id number] / Tdocumented in this encounter Plan of Treatment Not on filedocumented as of this encounter Visit Diagnoses Not on filedocumented in this encounter
--- OUTSIDE RECORDS SUMMARY | ~2018-12-06 | XMS | Encounter Summary ---
Demographics + + + | Address | [address] | | | [place] [address] | + + + | Home Phone [...] BOX | | | | | [address] | | | | | [address] | | + + + + + Care Team Providers + +------+ + | Care Diesel Powerplant Supervisor Name | Role | Phone | [...] [address] | | | | | | [place], [place] | | | | | | [address] | | | | | | [phone] | | | +--------+ + + + [...] + + + | [facility] | [address] | [place] [address] | | | LABORATORY | | | [...] + + + | [facility] | [address] | [place] [address] | | | LABORATORY | | | [...] | + + + + + | [facility] | [address] | [place] [address] | | | LABORATORY | | | [...] | | | AMOL EVANS | [facility] | | | | | | Laboratories. | | | | + + + + + + + + | Specimen | + + | | + + + + + + + | Performing | Address | City/State/Zipcode | Phone Number | | Organization | | | | + + + + + | [facility] | [address] | [place] [address] | | | LABORATORY | | | [...] + + + | [facility] | [address] | [place] [address] | | | LABORATORY | | | [...] | + + + + + | [facility] DEPARTMENT | [address] | [place] [address] | | | PATHOLOGY | [address] | | | + + + + + | [facility] DEPARTMENT | [address] | [place] [address] | | | PATHOLOGY | [address] [...] | + + + + + | [facility] DEPARTMENT OF | [address] | [place] [address] | | | PATHOLOGY | [address] | | | + + + + + | [facility] DEPARTMENT OF | [address] | [place] [address] | | | PATHOLOGY | [address] [...] | + + + + + | [facility] DEPARTMENT OF | [address] | [place] [address] | | | PATHOLOGY | [address] | | | + + + + + | [facility] DEPARTMENT OF | [address] | [place] [address] | | | PATHOLOGY | [address] [...] Performed At | + + + | [id number] [place] Phoned | [facility] | | | DEPARTMENT OF | | | PATHOLOGY | + + + + + + + + | Performing | Address | City/State/Zipcode | Phone Number | | Organization | | | | + + + + + | [facility] DEPARTMENT OF | [address] | [place] [address] | | | PATHOLOGY | [address] | | | + + + + + | [facility] DEPARTMENT OF | [address] | [place] [address] | | | PATHOLOGY | [address] [...] | + + + + + | [facility] DEPARTMENT OF | [address] | [place] [address] | | | PATHOLOGY | [address] | | | + + + + + | [facility] DEPARTMENT OF | [address] | [place] [address] | | | PATHOLOGY | [address] [...] | + + + + + | [facility] DEPARTMENT OF | [address] | [place] [address] | | | PATHOLOGY | [address] | | | + + + + + | [facility] DEPARTMENT OF | [address] | [place] [address] | | | PATHOLOGY | [address] [...] | + + + + + | [facility] DEPARTMENT OF | [facility] | [place] [address] | | | PATHOLOGY | [address] | | | + + + + + | [facility] DEPARTMENT OF | [facility] | [place] [address] | | | PATHOLOGY | [address] [...] | + + + + + | [facility] DEPARTMENT | [address] | [place] [address] | | | PATHOLOGY | [address] | | | + + + + + | [facility] | [address] | [place] [address] | | | PATHOLOGY | [address] [...] | + + + + + | [facility] DEPARTMENT OF | [address] | [place] [address] | | | PATHOLOGY | [address] | | | + + + + + | [facility] | [address] | [place] [address] | | | PATHOLOGY | [address] | | | + + + + + documented in this encounter Visit Diagnoses Not on filedocumented in this encounter"
--- OUTSIDE RECORDS SUMMARY | ~2018-12-06 | XMS | Clinical Summary ---
Demographics + + + | Address | [address] | | | [place] [address] | + + + | Home Phone [...] + | Author | [facility] | | | and Ramakrishnaana | + + + | Organization | [facility] | | | and [place] [...] Providers + +------+ + | Care Senior Financial Reporting Accountant Name | Role | Phone | + [...] + + + + | Overview: Overview: [id number] Assessment & Plan: Colonoscopy | | procedure [...] + + | Overview: Overview: | | [place] x 5; has stent; last angioplasty May [...] +--------+ +---------+--------+ | MEDICARE | MEDICA | [id number] | 10/25/19 | [phone] | | Medica [...] | Self | [birth year] | | [address] | | | al/Fam | | 1961 | [phone] | [address] [place] | | | de | | | 9 (Home) | [address] | + +--------+ +--------+ + + Advance Directives Patient has advance care planning documents on file. For more information, please contact:[facility] [place] [address]
--- OUTSIDE RECORDS SUMMARY | ~2018-12-06 | XMS | Encounter Summary ---
Demographics + + + | Address | [address] | | | [place] [address] | + + + | Home Phone [...] [address] | | | | | [place] | | | | | [address] | | + + + + + Care Team Providers + +------+ + | Care Sharepoint Web Developer Name | Role | Phone | [...] | | | | | Khad[place], | | | | | | [place] [address] | | | +--------+ + + + [...]
--- OUTSIDE RECORDS SUMMARY | ~2018-12-06 | XMS | Encounter Summary ---
Demographics + + + | Address | [address] [facility] | | | [place] [address] | + + + | Home Phone | | + + + | Preferred Language | Unknown | + + + | Marital Status | Single | + + + | Druze Affiliation | Unknown | + + + | Race | Unknown | + + + | Ethnic Group | Unknown | + + + Author + + + | Author | [facility] | | | and Ramakrishnaana | + + + | Organization | [facility] | | | and [place] [...] Team Providers + +------+ + | Care Installment Dealer Name | Role | Phone | + [...] + | 12/01/ | Telephone | [facility] | Rigo Muniz | Other | | 2018 | | ORTHOPEDIC SURGERY | [address] | | | | | [address] [facility] | [address] | | | | | [place], [place] | [place] [address] | | | | | [address] | [phone] | | | | | [phone] | | | +--------+ + + + [...]
--- OUTSIDE RECORDS SUMMARY | ~2018-12-06 | XMS | Encounter Summary ---
Demographics + + + | Address | [address] | | | [place] [address] | + + + | Home Phone [...] + + + | Author | [facility] | + + + | Organization | [facility] | + + + | Address | Unknown | + + + | Phone | Unavailable | + + + Support + + + + + | Name | Relationship | Address | Phone | + + + + + | Lolis Rodriguez | SCOTTY | [address] | | | | | [address] | | | | | [address] | | + + + + + Care Team Providers + +------+ + | Care Powder Shoveler Name | Role | Phone | + [...] | | | postprocedur | LEGACY | [place] | | | | | al | MEDICAL | [address] | | | | | status(V45.8 | GROUP | [address] | | | | | 9) | [place] | [place], [place] | | | | | Procedures | [address] | [address] | | | | | [place] | [address] | Phone: | | | | | LABS | [address] | [phone] | | | | | | [place], [place] | Fax: | | | | | | [address] | [phone] | | | | | | Phone: | | | | | | | [phone] | | | | | | | Fax: | | | | | | | [phone] | | +--------+--------+ + + + + Encounter Details +--------+ + + + + | Date | Type | Department | Care Team | Description | +--------+ + + + + | 01/15/ | [facility] | [facility] | ChanetllSree Nurse | Central Line Care | | 2016 | l Support | [place] [facility] [place] | [address] | ([facility]) | | | Staff | [address] | [address] [place], [place] | | | | | [address] [place], [place] | [address] | | | | | [address] | [phone] | | | | | [phone] | | | | | | | Sree Jain Ma | | | | | | Schedule [place], | | | | | | [place] [address] | | +--------+ + + + + [...]
--- OUTSIDE RECORDS SUMMARY | ~2018-12-06 | XMS | Encounter Summary ---
Demographics + + + | Address | [address] | | | [place] [address] | + + + | Home Phone [...] [address] | | | | | [address] | | | | | [address] | | + + + + + Care Team Providers + +------+ + | Care Central Station Operator Name | Role | Phone | [...] Care | | 2016 | Support | [facility] [place] | [address] | | | | Staff | [address] | [address] [place], [place] | | | | | [address] [place], [place] | [address] | | | | | [address] | [phone] | | | | | [phone] | | | | | | | Sree Jain Ma | | | | | | Schedule [place], | | | | | | [place] [address] | | +--------+ + + + + [...]
--- OUTSIDE RECORDS SUMMARY | ~2018-12-06 | XMS | Encounter Summary ---
Demographics + + + | Address | [address] | | | [place] [address] | + + + | Home Phone [...] [address]OX | | | | | [address] | | | | | [address] | | + + + + + Care Team Providers + +------+ + | Care Well Testing Operator Name | Role | Phone | [...] + + | 08/19/ | Refill | [facility] | Clair Kay MD | Refill Request | | 2017 | | [facility] | [address] | | | | | [address] | [address] | | | | | [address] | [place], [place] | | | | | [facility] | [address] | | | | | [place], [place] | [phone] | | | | | [address] | | | | | | [phone] | | | +--------+--------+ + + + [...]
--- OUTSIDE RECORDS SUMMARY | ~2018-12-06 | XMS | Clinical Summary ---
Demographics + + + | Address | [address] | | | [place] [address] | + + + | Home Phone | | + + + | Preferred Language | Unknown | + + + | Marital Status | | + + + | Voodoo Affiliation | Unknown | + + + | Race | Unknown | + + + | Ethnic Group | Unknown | + + + Author + + + | Author | [facility] (Historical as of | | | 10-09-18) | + + + | Organization | [facility] (Historical as of | | | 10-09-18) | + + + | Address | Unknown | + + + | Phone | Unavailable | + + + Care Team Providers + +------+ + | Care Theatrical Variety Agent Name | Role | Phone | [...] +------+-------+ + | MEDICARE | MEDICA | [id number] | | | [address] | | | RE | | | | [place] [address] | | | IP-OP | | | [...] Self | [birth year] | Home: | [address] | | | al/Fam | | 1961 | [phone] [address] [place], | | | de | | | [address] | [place] [address] | + +--------+ +--------+ + +"
--- OUTSIDE RECORDS SUMMARY | ~2018-12-06 | XMS | Encounter Summary ---
Demographics + + + | Address | [address] | | | [place] [address] | + + + | Home Phone [...] [address]OX | | | | | [address] | | | | | [address] | | + + + + + Care Team Providers + +------+ + | Care Ophthalmic Photographer Name | Role | Phone | + [...] | | | postprocedur | LEGACY | [place] | | | | | al | MEDICAL | [address] | | | | | status(V45.8 | GROUP | [address] | | | | | 9) | [place] | [place], [place] | | | | | Procedures | [address] | [address] | | | | | [place] | [address] | Phone: | | | | | LABS | [address] | [phone] | | | | | | [place], [place] | Fax: | | | | | | [address] | [phone] | | | | | | Phone: | | | | | | | [phone] | | | | | | | Fax: | | | | | | | [phone] | | +--------+--------+ + + + + Encounter Details +--------+ + + + + | Date | Type | Department | Care Team | Description | +--------+ + + + + | 07/21/ | [facility] | [facility] | Sree Abdul Nurse | Central Line Care | | 2013 | l Support | [place] [facility] [place] | [address] | ([facility]) | | | Staff | [address] | [address] [place], [place] | | | | | 140 [place], [place] | [address] | | | | | [address] | [phone] | | | | | [phone] | | | | | | | Sree Jain Ma | | | | | | Schedule [place], | | | | | | [place] [address] | | +--------+ + + + + [...]
--- OUTSIDE RECORDS SUMMARY | ~2018-12-06 | XMS | Encounter Summary ---
Demographics + + + | Address | [address] | | | [place] [address] | + + + | Home Phone [...] + + | Author | [facility] | + + + | Organization | [facility] | + + + | Address | Unknown | + + + | Phone | Unavailable | + + + Support + + + + + | Name | Relationship | Address | Phone | + + + + + | Lolis Rodriguez | SCOTTY | [address] | | | | | [address] | | | | | [address] | | + + + + + Care Team Providers + +------+ + | Care Eap Consultant Name | Role | Phone | [...] + + | 08/19/ | Refill | [facility] | Clair Kay MD | Refill Request | | 2017 | | [facility] | [address] | | | | | [address] | [address] | | | | | [address] | [place], [place] | | | | | [facility] | [address] | | | | | [place], [place] | [phone] | | | | | [address] | | | | | | [phone] | | | +--------+--------+ + + + [...]
--- OUTSIDE RECORDS SUMMARY | ~2018-12-06 | XMS | Clinical Summary ---
Demographics + + + | Address | [address] | | | [place] [address] | + + + | Home Phone | | + + + | Preferred Language | Unknown | + + + | Marital Status | Single | + + + | Oriental Orthodox Affiliation | Unknown | + + + | Race | Unknown | + + + | Ethnic Group | Unknown | + + + Author + + + | Author | [facility] | | | and Ramakrishnaana | + + + | Organization | [facility] | | | and [place] [...] Team Providers + +------+ + | Care Sheet Manager Name | Role | Phone | [...] + + + + | Overview: Overview: [id number] Assessment & Plan: Colonoscopy | | procedure [...] + + | Overview: Overview: | | [place] x 5; has stent; last angioplasty May [...] 12/01/ | Telephone | Orthopedic Surgery | Riog Muniz | Other | | 2019 | [...] +--------+ +---------+--------+ | MEDICARE | MEDICA | [id number] | 10/25/19 | [phone] | | Medica [...] | Self | [birth year] | | [address] | | | al/Fam | | 1961 | [phone] | [address] | | | de | | | 9 (Home) | [address] | + +--------+ +--------+ + + Advance Directives Patient has advance care planning documents on file. For more information, please contact:[facility] [place] [address]
--- OUTSIDE RECORDS SUMMARY | ~2018-12-06 | XMS | Encounter Summary ---
Demographics + + + | Address | [address] | | | [place] [address] | + + + | Home Phone [...] [address] | | | | | [place], [place] | | | | | [address] | | + + + + + Care Team Providers + +------+ + | Care Cupola Tender Helper Name | Role | Phone | [...]
--- OUTSIDE RECORDS SUMMARY | ~2018-12-06 | XMS | Encounter Summary ---
Demographics + + + | Address | [address] | | | [place] [address] | + + + | Home Phone [...] [address] | | | | | [address] | | + + + + + Care Team Providers + +------+ + | Care Shipping Helper Name | Role | Phone | [...] [place] | | | | | | [address] | | | +--------+ + + + [...]
--- OUTSIDE RECORDS SUMMARY | ~2018-12-06 | XMS | Encounter Summary ---
Demographics + + + | Address | [address] | | | [place] [address] | + + + | Home Phone [...] [address] | | | | | [address] | | | | | [address] | | + + + + + Care Team Providers + +------+ + | Care Sheetmetal Trades Worker Name | Role | Phone | [...] [place] | | | | | | [address] | | | +--------+ + + + [...]
--- OUTSIDE RECORDS SUMMARY | ~2018-12-06 | XMS | Encounter Summary ---
Demographics + + + | Address | [address] | | | [place] [address] | + + + | Home Phone [...] [address]OX | | | | | [address] | | | | | [address] | | + + + + + Care Team Providers + +------+ + | Care Laborer Ammunition Assembly Name | Role | Phone | [...] [id number] | | | | | | [place], [place] | | | | | | [address] | | | | | | [phone] | | | +--------+ + + + [...] | + + + + + | [facility] | [address] | [place] [address] | | | PATHOLOGY | [address] [...] | + + + + + | [facility] | [address] | [place] [address] | | | PATHOLOGY | [address] [...] | + + + + + | [facility] | [address] | [place] [address] | | | PATHOLOGY | [address] [...] | + + + + + | [facility] | [address] | [place] [address] | | | PATHOLOGY | [address] [...] | + + + + + | [facility] | [address] | [place] [address] | | | PATHOLOGY | [address] [...] | + + + + + | [facility] | [address] | [place] [address] | | | PATHOLOGY | [address] [...] | + + + + + | [facility] | [address] | [place] [address] | | | PATHOLOGY | [address] [...] | + + + + + | [facility] | [address] | [place] [address] | | | PATHOLOGY | [address] | | | + + + + + documented in this encounter Visit Diagnoses Not on filedocumented in this encounter"
--- OUTSIDE RECORDS SUMMARY | ~2018-12-06 | XMS | Encounter Summary ---
Demographics + + + | Address | [address] | | | [place] [address] | + + + | Home Phone [...] + + | Author | [facility] | + + + | Organization | [facility] | + + + | Address | Unknown | + + + | Phone | Unavailable | + + + Support + + + + + | Name | Relationship | Address | Phone | + + + + + | Lolis Rodriguez | SCOTTY | [address] | | | | | [address] | | | | | [address] | | + + + + + Care Team Providers + +------+ + | Care House Nurse Name | Role | Phone | [...] | | | postprocedur | LEGACY | [place] | | | | | al | MEDICAL | [address] | | | | | status(V45.8 | GROUP | [address] | | | | | 9) | [place] | [place], [place] | | | | | Procedures | [address] | [address] | | | | | [place] | [address] | Phone: | | | | | LABS | [address] | [phone] | | | | | | [place], [place] | Fax: | | | | | | [address] | [phone] | | | | | | Phone: | | | | | | | [phone] | | | | | | | Fax: | | | | | | | [phone] | | +--------+--------+ + + + + Encounter Details +--------+ + + + + | Date | Type | Department | Care Team | Description | +--------+ + + + + | 01/15/ | [facility] | [facility] | [place] Nurse | Central Line Care | | 2016 | l Support | [place] [facility] [place] | [address] | ([facility]) | | | Staff | [address] | [address] [place], [place] | | | | | [address] [place], [place] | [address] | | | | | [address] | [phone] | | | | | [phone] | | | | | | | Sree Jain Ma | | | | | | Schedule [place], | | | | | | [place] [address] | | +--------+ + + + + [...]
--- OUTSIDE RECORDS SUMMARY | ~2018-12-06 | XMS | Encounter Summary ---
Demographics + + + | Address | [address] | | | [place] [address] | + + + | Home Phone [...] [address] | | | | | [address], [place] | | | | | [address] | | + + + + + Care Team Providers + +------+ + | Care Blast Furnace Keeper Helper Name | Role | Phone | [...] + + + | [facility] | [address] | [place] [address] | | | LABORATORY | | | [...] | + + + + + | [facility] | [address] | [place] [address] | | | LABORATORY | | | [...] + + + | [facility] | [address] | [place] [address] | | | LABORATORY | | | [...] + + + | [facility] | [address] | [place] [address] | | | LABORATORY | | | [...] | + + + + + | [facility] | [address] | [place] [address] | | | LABORATORY | | | [...] | + + + + + | [facility] | [address] | [place] [address] | | | LABORATORY | | | [...] + + + | [facility] | [address] | [place] [address] | | | LABORATORY | | | [...] | + + + + + | [facility] DEPARTMENT OF | [address] | [place] [address] | | | PATHOLOGY | [address] | | | + + + + + | [facility] DEPARTMENT OF | [address] | [place] [address] | | | PATHOLOGY | [address] [...] + + + + + | [facility] | [address] | [place] [address] | | | PATHOLOGY | [address] | | | + + + + + | [facility] | [address] | [place] [address] | | | PATHOLOGY | [address] | | | + + + + + documented in this encounter Visit Diagnoses Not on filedocumented in this encounter"
--- OUTSIDE RECORDS SUMMARY | ~2018-12-06 | XMS | Encounter Summary ---
Demographics + + + | Address | [address] | | | [place] [address] | + + + | Home Phone [...] [address] | | | | | [address], [place] | | | | | [address] | | + + + + + Care Team Providers + +------+ + | Care Fire Fighting Equipment Specialist Name | Role | Phone | [...] as of this encounter Progress Notes Interface, Channel Sales Manager In - 01/14/2006 5:[address] [address] or June 12, 1999 Marlon Freeman D.O. [facility] [employer] [facility] [address] [place] [address] RE: LAURY MIDDLETON MR #: [id number] Dear Dr. Freeman: I had the pleasure [...] three cardiac arteriograms. MEDICATIONS 1. Prilosec 2. [place]. 3. Accolate. 4. Evista. 4. Promethazine. 5. [...] to obtain her ultrasound reports from [facility]. I am still entertaining the [...] Naun Carias M.D. HERI / LUIS EDUARDO [id number] / [id number] / [id number] / [id number] signed by Interface, Channel Sales Manager In at 01/14/2006 5:11 AM PSTdocume nted in this encounter Plan of Treatment Not on filedocumented as of this encounter Visit Diagnoses Not on filedocumented in this encounter"
--- OUTSIDE RECORDS SUMMARY | ~2018-12-06 | XMS | Encounter Summary ---
Demographics + + + | Address | [address] | | | [place] [address] | + + + | Home Phone [...] [address]OX | | | | | [address] | | | | | [address] | | + + + + + Care Team Providers + +------+ + | Care X Ray Developer Name | Role | Phone | [...] | | | | | Khadra Qu[place], | | | | | | [place] [address] | | | +--------+ + + + [...]
--- OUTSIDE RECORDS SUMMARY | ~2018-12-06 | XMS | Clinical Summary ---
Demographics + + + | Address | [address] | | | [place] [address] | + + + | Home Phone [...] [place] | | | | | [address] | | + + + + + Care Team Providers + +------+ + | Care General Operations Manager Name | Role | Phone | + +------+ + | James Horne MD | PCP | | + +------+ + Source Comments SHARON is fully live on both [facility] Allergies + + + + + + [...] | 04/1 | | Activ | | [id number] | needed. | | | 1/20 | [...] | | | | | | | [address] | | + +--------+ +--------+ + +--------+ + +--------+ +--------+ + + | Guarantor Name | Accoun | Relation to | Date | Phone | Billing Address | | | t Type | Patient | of | | | | | | | | | | + +--------+ +--------+ + + | Laury Crockett | Person | Self | [birth year] | | [address] | | | al/Fam | | 1961 | [phone] | [place] | | | de | | | 9 (Home) | [address] | + +--------+ +--------+ + +
--- OUTSIDE RECORDS SUMMARY | ~2018-12-06 | XMS | Encounter Summary ---
Demographics + + + | Address | [address] | | | [place] [address] | + + + | Home Phone [...] + + + + + | [address] | ECON | [address] | | | | | [address], [place] | | | | | [address] | | + + + + + Care Team Providers + +------+ + | Care Computer Systems Technician Name | Role | Phone | [...] as of this encounter Progress Notes Interface, Domestic Maid In - 01/14/2006 5:[address] [address] or June 12, 1999 Marlon Freeman D.O. [facility] [employer] [facility] [address] [place] [address] RE: LAURY MIDDLETON MR #: [id number] Dear Dr. Freeman: I had the pleasure [...] three cardiac arteriograms. MEDICATIONS 1. Prilosec 2. Index. 3. Accolate. 4. Evista. 4. Promethazine. 5. [...] Naun Carias M.D. HERI / LUIS EDUARDO [id number] / [id number] / [id number] / [id number] signed by Interface, Domestic Maid In at 01/14/2006 5:11 AM PSTdocume nted in this encounter Plan of Treatment Not on filedocumented as of this encounter Visit Diagnoses Not on filedocumented in this encounter"
--- OUTSIDE RECORDS SUMMARY | ~2018-12-06 | XMS | Encounter Summary ---
Demographics + + + | Address | [address] | | | [place] [address] | + + + | Home Phone [...] [address] | | | | | [address] | | | | | [address] | | + + + + + Care Team Providers + +------+ + | Care Concrete Products Machine Operator Name | Role | Phone [...] | | genital | [facility] | [address] | | | | | prolapse, | Hospital | [facility] | | | | | unspecified | [address] | [address] | | | | | Procedures | [address] | [place], [place] | | | | | [place] NEW | [address] | [address] | | | | | PATIENT | Demian, | Phone: | | | | | [place] | [place] [address] | [phone] | | | | | EST PATIENT | Phone: | Fax: | | | | | [place] | [phone] | [phone] | | | | | | Fax: | | | | | | | [phone] | | +--------+--------+ + + + + Encounter Details +--------+---------+ + + + | Date | Type | Department | Care Team | Description | +--------+---------+ + + + | 08/18/ | Office [facility] | Clair Kay MD | Pelvic pain (Primary | | 2017 | Visit | [facility] | [address] | Dx); Pain of right | | | | [address] | [address] | hip joint; Mixed | | | | [address] | [place], [place] | incontinence urge | | | | [facility] | [address] | and stress | | | | [place], [place] | [phone] | (male)(female) | | | | [address] | | | | | | [phone] | | | +--------+---------+ + + + [...] to decrease the ne rve sensitivities. 2. [place] - please stop by [employer] on your way out of town to poultry picker "astroglide" for lubrication. 3. Follow up - please make an appointment in 3 months after starting PT. Please sign up for MyChart so we can communicate about your gabapentin dosing. I have included below some information about pelvic muscle pain. Calir Brown MD Glue Mill Operator Division of Urogynecology and Reconstructive Pelvic Surgery Department of Machine Striper [facility] Levator Myalgia The muscles along the [...] activities or seeing a sp orts medicine/ change control specialist. & Chronic Pain Levator myalgia can be associated with chronic pain. In certain cases we will recommend a rug touch up painter to help with your care. documented [...] on the patient intake questionnaire (scanned into [employer]) and with the patient. The summary is [...] be found in the scanned documents in [employer]. They have also been entered into rele vant carson of the [employer] database. Past Medical History: Diagnosis Date Abdominal [...] allergies Spasm of muscle SVT (supraventricular tachycardia) ([facility] 1980 Thoracic spondylosis without myelopathy Past Surgical [...] by mouth once daily., Disp: , Rfl: qtnavbyc-jttwvtzub-voludtmmalfxlz 3.5-10,000-1 mg/mL-unit/mL-% otic solution, Instill in e [...]
--- OUTSIDE RECORDS SUMMARY | ~2018-12-06 | XMS | Encounter Summary ---
Demographics + + + | Address | [address] | | | [place] [address] | + + + | Home Phone [...] + + + | Author | [facility] | + + + | Organization | [facility] | + + + | Address | Unknown | + + + | Phone | Unavailable | + + + Support + + + + + | Name | Relationship | Address | Phone | + + + + + | Lolis Rodriguez | SCOTTY | [address] | | | | | [address] | | | | | [address] | | + + + + + Care Team Providers + +------+ + | Care Solar Site Assessment Specialist Name | Role | Phone | [...] | | 2017 | | [facility] | [address] | | | | | [address] | [address] | | | | | [address] | [place], [place] | | | | | [place] | [address] | | | | | [place], [place] | [phone] | | | | | [address] | | | | | | [phone] | | | +--------+ + + + [...]
[~2018-12-06 19:19] MED LIST changes: +MINIPRESS2 MG PO
--- OUTSIDE RECORDS SUMMARY | 2018-12-06 19:22 | XMS ---
PreManage Notification: GROVER WYNN Security Overlay Operator Events No recent Security Events currently on file CRITERIA MET - Group Notification - 6 ED Visits in 6 Months - [facility] - Has Care Guidelines - PDMP - [facility] - 2 Visits in 30 Days CARE PROVIDERS ROXY MAS Internal Medicine Current PHONE: [phone] MARILYN CLAYTON Nurse Practitioner: 09/07/2017-Current PHONE: Unknown ROXY MAS Primary Care Current PHONE: Unknown DR AMES Primary Care 03/14/2016-Current PHONE: [phone] Guidelines Source: [facility] Guidelines Date: 07/12/2018 Care Coordination: Receiving mental health services with [facility].\T\nbsp; Please contact [facility] with mental health concerns.\T\nbsp; Demian/Jeremias Villegas: [phone]\T\ nbsp; Alexandru: [phone]. Care History Medical/Surgical 09/27/2018 [facility] - DUE TO PATIENT RECENT FALL- [facility] CONTACTED PCP OFFICE REQUESTED AN ED FOLLOW UP VISIT ON 09/27/18. 09/07/2017 [facility] - Patient is currently established with [facility]. If patient is seen in the ED during business hours. Please contact [facility] at [facility] at Nmm [phone]. Care Recommendation: This patient has had 5 or more Emergency Department visits in the last 12 months.\T\nbsp; Patient requires education on the scope and purpose of the ED as an acute care provider not a Primary Care Provider and should not be utilized for chronic conditions.\T\nbsp; If patient returns to ED please contact Community Health WorkerWendy at [phone]. These are guidelines and the provider should exercise clinical judgment when providing care. Social 03/18/2016 [facility] ENCOURAGE PATIENT TO USE PCP OR WALK-IN CLINIC FOR NON-EMERGENT PROBLEMS. SHE CAN CALL PLUMBER SUPERVISOR FOR HELP OR QUESTIONS. [phone]. E.D. VISIT COUNT (12 MO.) 10 [facility]. TOTAL 10 NOTE: Visits indicate total known visits. ED/UCC VISIT TRACKING (12 MO.) 12/06/2018 19:20 [facility] [place] TYPE: Emergency COMPLAINT: - WEAKNESS 12/05/2018 22:49 [facility] [place] TYPE: Emergency COMPLAINT: - BEE STING 09/26/2018 18:32 [facility] [place] TYPE: Emergency COMPLAINT: - FALL DIAGNOSES: - Bipolar disorder, unspecified - 1 Type 2 diabetes mellitus with diabetic neuropathy, unsp - Pain in left hip - Low back pain - Other chcf (current) 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 - Personal history of malignant neoplasm of bladder - Contusion of left hip, initial encounter - Presence of coronary angioplasty implant and graft - termite treater (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 aspirin - Hypothyroidism, unspecified - Fall from chair, initial encounter - Nicotine dependence, unspecified, uncomplicated - Contusion of right knee, initial encounter - Allergy status to analgesic agent status - Allergy status to oth drug/meds/biol subst status - 1 Type 2 diabetes mellitus without complications 08/03/2018 12:38 [facility] [place] TYPE: Emergency COMPLAINT: - CHEST PAIN/FALL DIAGNOSES: - Other termite treater (current) 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 - Personal history of malignant neoplasm of bladder - Allergy status to analgesic agent status - Allergy status to oth drug/meds/biol subst status - half-way (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 aspirin - Hypothyroidism, unspecified [...] - Nicotine dependence, unspecified, uncomplicated - Other termite treater (current) 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 - half-way (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 oral hypoglycemic drugs - Chest pain, unspecified - Other chest pain - half-way (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 aspirin - Hypothyroidism, unspecified - Bipolar disorder, unspecified - Unspecified asthma, uncomplicated - Allergy status to oth drug/meds/biol subst status 07/08/2018 15:50 [facility] [place] TYPE: Emergency COMPLAINT: - BURNING SENSATION IN LUNGS DIAGNOSES: - Allergy status to analgesic agent status - termite treater (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 insulin - Bipolar disorder, unspecified - Hypothyroidism, unspecified - Acquired absence of both cervix and uterus - Allergy status to oth drug/meds/biol subst status - Contact w and expsr to oth hazard, chiefly nonmed, chemicals - Acquired absence of other specified parts of digestive tract - Personal history of malignant neoplasm of large intestine - half-way (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 aspirin - Personal history of malignant neoplasm of bladder - Contact w and expsr to oth hazard, chiefly nonmed, chemicals - Unspecified asthma, uncomplicated - Nicotine dependence, unspecified, uncomplicated - Nicotine dependence, cigarettes, uncomplicated - 1 Type 2 diabetes mellitus without complications - Other termite treater (current) 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 03/08/2018 18:40 [facility] [place] TYPE: Emergency COMPLAINT: - ALTERED MENTAL STATUS DIAGNOSES: - Bipolar disorder, unspecified - Unspecified asthma, uncomplicated - 1 Type 2 diabetes mellitus without complications - Presence of coronary angioplasty implant and graft - Personal history of malignant neoplasm of bladder - Other termite treater (current) 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 - Extrapyramidal and movement disorder, unspecified - half-way (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 insulin - Nicotine dependence, unspecified, uncomplicated - Allergy status to narcotic agent status - termite treater (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 aspirin - Gastro-esophageal reflux disease without esophagitis - 1 Type 2 diabetes mellitus with diabetic neuropathy, unsp - Allergy status to oth drug/meds/biol subst status - Hypothyroidism, unspecified 03/06/2018 22:19 [facility] [place] TYPE: Emergency COMPLAINT: - SUICIDAL/HEAD INJURY/DIZZINESS DIAGNOSES: - Allergy status to narcotic agent status - termite treater (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 insulin - Unspecified asthma, uncomplicated - Bipolar disorder, unspecified - 1 Type 2 diabetes mellitus with diabetic neuropathy, unsp - Hypothyroidism, unspecified - Other termite treater (current) 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 - Suicidal ideations - Allergy status to oth drug/meds/biol subst status - Gastro-esophageal reflux disease without esophagitis - Unspecified injury of head, initial encounter - Unspecified fall, initial encounter - termite treater (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 aspirin - Old myocardial infarction - Personal history of malignant neoplasm of bladder - Acquired absence of other specified parts of digestive tract - Nicotine dependence, unspecified, uncomplicated 02/07/2018 00:22 [facility] [place] TYPE: Emergency COMPLAINT: - DIZZY/POSS BLODD SUGAR PROBLEM DIAGNOSES: - Gastro-esophageal reflux disease without esophagitis - half-way (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 insulin - Allergy status to narcotic agent status - Hypothyroidism, unspecified - Allergy status to oth drug/meds/biol subst status - 1 Type 2 diabetes mellitus with hyperglycemia - Other chcf (current) 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 - termite treater (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 aspirin - Nicotine dependence, unspecified, uncomplicated 01/29/2018 18:00 [facility] [place] TYPE: Emergency COMPLAINT: - HIGH BLOOD SUGAR DIAGNOSES: - Allergy status to narcotic agent status - half-way (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 oral hypoglycemic drugs - Migraine, unsp, not intractable, without status migrainosus - Other chest pain - Unspecified fall, initial encounter - termite treater (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 aspirin - Allergy status to oth drug/meds/biol subst status - Other termite treater (current) 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 - Gastro-esophageal reflux disease without esophagitis - Hypothyroidism, unspecified - Gastritis, unspecified, without bleeding - Unspecified sprain of right elbow, initial encounter - 1 Type 2 diabetes mellitus with hyperglycemia - Nicotine dependence, unspecified, uncomplicated INPATIENT VISIT TRACKING (12 MO.) No inpatient visits to display in this time frame [email or web address]
[2018-12-06] MEDS ORDERED: ZITHROMAX250 MG PO (20:35)
== END 2018-12-06 21:01 | disposition home or self-care (01) ==
LOC: ED 19:19
DX: T63.441A Toxic effect of venom of bees, accidental (unintentional), initial encounter (principal); J44.1 Chronic obstructive pulmonary disease with (acute) exacerbation; E11.42 Type 2 diabetes mellitus with diabetic polyneuropathy; E03.9 Hypothyroidism, unspecified; K21.9 Gastro-esophageal reflux disease without esophagitis; Z85.51 Personal history of malignant neoplasm of bladder; F17.200 Nicotine dependence, unspecified, uncomplicated; Z88.8 Allergy status to other drugs, medicaments and biological substances; Z88.5 Allergy status to narcotic agent; Z79.899 Other long term (current) 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; Z79.82 Long term (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 aspirin
CPT/HCPCS: 71046; 99283-25

== ENCOUNTER 2019-03-15 23:52 | Emergency (ER) | payer MEDICARE, MEDICAID ==
[~2019-03-15] VITALS: Ht 157.5 cm; Wt 88.6 kg
[~2019-03-15 23:52] MED LIST changes: +ZITHROMAX250 MG PO
--- OUTSIDE RECORDS SUMMARY | 2019-03-15 23:54 | XMS ---
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 No recent Security Events currently on file CRITERIA MET - Group Notification - [facility] - Has Care Guidelines - PDMP - [facility] - 2 Visits in 30 Days CARE PROVIDERS ROXY MAS Internal Medicine Current PHONE: [phone] MARILYN CLAYTON Nurse Practitioner: Family 09/07/2017-Current PHONE: Unknown ROXY MAS Primary Care Current PHONE: Unknown DR AMES Primary Care 03/14/2016-Current PHONE: [phone] Guidelines Source: [place] Guidelines Date: 07/12/2018 Care Coordination: Receiving mental health services with [facility].\T\nbsp; Please contact [facility] with mental health concerns.\T\nbsp; Demian/Jeremias Villegas: [phone]\T\ nbsp; Alexandru: [phone]. Care History Medical/Surgical 09/27/2018 [facility] - DUE TO PATIENT RECENT FALL- CHW CONTACTED PCP OFFICE REQUESTED AN ED FOLLOW UP VISIT ON 09/27/18. 09/07/2017 [facility] - Patient is currently established with [facility]. If patient is seen in the ED during business hours. Please contact CHWs at [facility] at [phone]. Care Recommendation: This patient has had 5 or more Emergency Department visits in the last 12 months.\T\nbsp; Patient requires education on the scope and purpose of the ED as an acute care provider not a Primary Care Provider and should not be utilized for chronic conditions.\T\nbsp; If patient returns to ED please contact Community Health WorkerWendy at [phone]. These are guidelines and the provider should exercise clinical judgment when providing care. Social 03/18/2016 [facility] ENCOURAGE PATIENT TO USE PCP OR WALK-IN CLINIC FOR NON-EMERGENT PROBLEMS. SHE CAN CALL PARTY SUPPLY SPECIALIST FOR HELP OR QUESTIONS. [phone]. [facility]. [facility] (12 MO.) [facility] TOTAL 8 NOTE: Visits indicate total known visits. ED/UCC VISIT TRACKING (12 MO.) 03/15/2019 23:52 [facility] TYPE: Emergency COMPLAINT: - STROKE SYMPTOMS [facility] DIAGNOSES: - Pain in left hip - Pelvic Pain - Hip Pain - Other chronic pain - Unilateral primary osteoarthritis, left hip - Simple chronic bronchitis 12/06/2018 19:20 [facility] [place] TYPE: Emergency COMPLAINT: - WEAKNESS DIAGNOSES: - Allergy status to narcotic agent status - Hypothyroidism, unspecified - Allergy status to oth drug/meds/biol subst status - director long term care (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 aspirin - Nicotine dependence, unspecified, uncomplicated - 1 Type 2 diabetes mellitus with diabetic polyneuropathy - Other custodial (current) 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 - Toxic effect of venom of bees, accidental, init - Gastro-esophageal reflux disease without esophagitis - Personal history of malignant neoplasm of bladder - Toxic effect of venom of bees, accidental, init - Chronic obstructive pulmonary disease w (acute) exacerbation - Wheezing 12/05/2018 22:49 [facility] [place] TYPE: Emergency COMPLAINT: - BEE STING DIAGNOSES: - Allergy status to analgesic agent status - director long term care (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 aspirin - Nicotine dependence, unspecified, uncomplicated - 1 Type 2 diabetes mellitus with diabetic neuropathy, unsp - Other buttermaker helper (current) 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 - Toxic effect of venom of bees, accidental, init - Bipolar disorder, unspecified - Chronic obstructive pulmonary disease, unspecified - Allergy status to oth drug/meds/biol subst status - Gastro-esophageal reflux disease without esophagitis - Hypothyroidism, unspecified - Personal history of malignant neoplasm of bladder 09/26/2018 18:32 [facility] [place] TYPE: Emergency COMPLAINT: - FALL DIAGNOSES: - Bipolar disorder, unspecified - 1 Type 2 diabetes mellitus with diabetic neuropathy, unsp - Pain in left hip - Low back pain - Other custodial (current) 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 - Personal history of malignant neoplasm of bladder - Contusion of left hip, initial encounter - Presence of coronary angioplasty implant and graft - director long term care (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 aspirin - Hypothyroidism, unspecified - Fall from chair, initial encounter - Nicotine dependence, unspecified, uncomplicated - Contusion of right knee, initial encounter - Allergy status to analgesic agent status - Allergy status to oth drug/meds/biol subst status - 1 Type 2 diabetes mellitus without complications 08/03/2018 12:38 [facility] [place] TYPE: Emergency COMPLAINT: - CHEST PAIN/FALL DIAGNOSES: - Other buttermaker helper (current) 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 - Personal history of malignant neoplasm of bladder - Allergy status to analgesic agent status - Allergy status to oth drug/meds/biol subst status - director long term care (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 aspirin - Hypothyroidism, unspecified [...] - Nicotine dependence, unspecified, uncomplicated - Other custodial (current) 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 - director long term care (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 oral hypoglycemic drugs - Chest pain, unspecified - Other chest pain - FDC (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 aspirin - Hypothyroidism, unspecified - Bipolar disorder, unspecified - Unspecified asthma, uncomplicated - Allergy status to oth drug/meds/biol subst status 07/08/2018 15:[address] [facility] [place] TYPE: Emergency COMPLAINT: - BURNING SENSATION IN LUNGS DIAGNOSES: - Allergy status to analgesic agent status - FDC (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 insulin - Bipolar disorder, unspecified - Hypothyroidism, unspecified - Acquired absence of both cervix and uterus - Allergy status to oth drug/meds/biol subst status - Contact w and expsr to oth hazard, chiefly nonmed, chemicals - Acquired absence of other specified parts of digestive tract - Personal history of malignant neoplasm of large intestine - director long term care (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 aspirin - Personal history of malignant neoplasm of bladder - Contact w and expsr to oth hazard, chiefly nonmed, chemicals - Unspecified asthma, uncomplicated - Nicotine dependence, unspecified, uncomplicated - Nicotine dependence, cigarettes, uncomplicated - 1 Type 2 diabetes mellitus without complications - Other buttermaker helper (current) 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 INPATIENT VISIT TRACKING (12 MO.) No inpatient visits to display in this time frame [email or web address]
--- NOTE | 2019-03-16 07:51 | EKG ---
[facility] [address] [place], [place] [address] Signed Normal sinus rhythm Normal ECG When compared with ECG of 05-DEC-2018 23:08, No significant change was found Confirmed by JOSEPHINE RODRIGUEZ MD ([id number]) on 03/16/2019 7:51:02 AM Electronically Signed By: JOSEPHINE RODRIGUEZ MD 03/16/19 0751 PATIENT NAME: GROVER WYNN Electrocardiogram DATE OF : 60 PHYSICIAN: JOSEPHINE RODRIGUEZ MD REPORT #: [id number] REPORT IS CONFIDENTIAL AND NOT TO BE RELEASED WITHOUT AUTHORIZATION
== END 2019-03-16 01:46 | disposition home or self-care (01) ==
LOC: ED 23:52
DX: G43.109 Migraine with aura, not intractable, without status migrainosus (principal); E11.9 Type 2 diabetes mellitus without complications; E03.9 Hypothyroidism, unspecified; K21.9 Gastro-esophageal reflux disease without esophagitis; J45.909 Unspecified asthma, uncomplicated; F31.9 Bipolar disorder, unspecified; F17.200 Nicotine dependence, unspecified, uncomplicated; Z88.8 Allergy status to other drugs, medicaments and biological substances; Z88.5 Allergy status to narcotic agent; Z79.899 Other long term (current) 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
CPT/HCPCS: 70450; 80053; 84484; 85025; 93005; 93010; 96374; 96375; 99284-25; J1200; J2765

== ENCOUNTER 2019-05-24 16:00 | Emergency (ER) | payer MEDICARE, MEDICAID ==
[~2019-05-24] VITALS: Ht 157.5 cm; Wt 83.6 kg
--- OUTSIDE RECORDS SUMMARY | 2019-05-24 16:04 | XMS ---
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 No recent Security Events currently on file CRITERIA MET - Group Notification - [facility] Guidelines - [facility] CARE PROVIDERS ROXY MAS Internal Medicine Current PHONE: [phone] GONZALES CLAYTON Nurse Practitioner: Family 09/07/2017-Current PHONE: [phone] ROXY MAS Primary Care Current PHONE: Unknown DR AMES Primary Care 03/14/2016-Current PHONE: [phone] Guidelines Source: Wendyjosh Dennis Guidelines Date: 07/12/2018 Care Coordination: Receiving mental health services with [facility].\T\nbsp; Please contact [facility] with mental health concerns.\T\nbsp; Demian/Jeremias Villegas: [phone]\T\ nbsp; Alexandru: [phone]. Care History Social 03/18/2016 [facility] ENCOURAGE PATIENT TO USE PCP OR WALK-IN CLINIC FOR NON-EMERGENT PROBLEMS. SHE CAN CALL PHYSICS TECHNICIAN FOR HELP OR QUESTIONS. [phone]. Medical/Surgical 03/16/2019 [facility] Left voicemail to have patient schedule follow up visit with Gonzales Clayton 09/27/2018 [facility] - DUE TO PATIENT RECENT FALL- CHW CONTACTED PCP OFFICE REQUESTED AN ED FOLLOW UP VISIT ON 09/27/18. 09/07/2017 [facility] - Patient is currently established with [facility]. If patient is seen in the ED during business hours. Please contact CHWs at [facility] at [phone]. Care Recommendation: This patient has had 5 or more Emergency Department visits in the last 12 months.\T\nbsp; Patient requires education on the scope and purpose of the ED as an acute care provider not a Primary Care Provider and should not be utilized for chronic conditions.\T\nbsp; If patient returns to ED please contact Community Health WorkerWendy at [phone]. These are guidelines and the provider should exercise clinical judgment when providing care. [facility]. [facility] (12 MO.) [facility] TOTAL 9 NOTE: Visits indicate total known visits. ED/UCC VISIT TRACKING (12 MO.) 05/24/2019 16:01 [facility] [place] TYPE: Emergency COMPLAINT: - R SIDE RIB INJURY 03/15/2019 23:52 [facility] [place] TYPE: Emergency COMPLAINT: - STROKE SYMPTOMS DIAGNOSES: - Allergy status to other drugs, medicaments and biological sub - Allergy status to narcotic agent status - Nicotine dependence, unspecified, uncomplicated - Hypothyroidism, unspecified - Bipolar disorder, unspecified - Type 2 diabetes mellitus without complications - Gastro-esophageal reflux disease without esophagitis - Headache - Migraine with aura, not intractable, without status migrainos - Unspecified asthma, uncomplicated - Other termite inspector (current) 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 02/20/2019 01:37 [facility] TYPE: Emergency DIAGNOSES: - Pain in left hip - Pelvic Pain - Hip Pain - Other chronic pain - Unilateral primary osteoarthritis, left hip - Simple chronic bronchitis 12/06/2018 19:20 [facility] TYPE: Emergency COMPLAINT: - WEAKNESS DIAGNOSES: - Allergy status to narcotic agent status - Hypothyroidism, unspecified - Allergy status to other drugs, medicaments and biological sub - shelter (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 aspirin - Nicotine dependence, unspecified, uncomplicated - Type 2 diabetes mellitus with diabetic polyneuropathy - Other snf (current) 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 - Toxic effect of venom of bees, accidental (unintentional), in - Gastro-esophageal reflux disease without esophagitis - Personal history of malignant neoplasm of bladder - Toxic effect of venom of bees, accidental (unintentional), in - Chronic obstructive pulmonary disease with (acute) exacerbati - Wheezing 12/05/2018 22:49 [facility] TYPE: Emergency COMPLAINT: - BEE STING DIAGNOSES: - Allergy status to analgesic agent status - shelter (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 aspirin - Nicotine dependence, unspecified, uncomplicated - Type 2 diabetes mellitus with diabetic neuropathy, unspecifie - Other snf (current) 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 - Toxic effect of venom of bees, accidental (unintentional), in - Bipolar disorder, unspecified - Chronic obstructive pulmonary disease, unspecified - Allergy status to other drugs, medicaments and biological sub - Gastro-esophageal reflux disease without esophagitis - Hypothyroidism, unspecified - Personal history of malignant neoplasm of bladder 09/26/2018 18:32 [facility] [place] TYPE: Emergency COMPLAINT: - FALL DIAGNOSES: - Bipolar disorder, unspecified - Type 2 diabetes mellitus with diabetic neuropathy, unspecifie - Pain in left hip - Low back pain - Other snf (current) 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 - Personal history of malignant neoplasm of bladder - Contusion of left hip, initial encounter - Presence of coronary angioplasty implant and graft - shelter (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 aspirin - Hypothyroidism, unspecified - Fall from chair, initial encounter - Nicotine dependence, unspecified, uncomplicated - Contusion of right knee, initial encounter - Allergy status to analgesic agent status - Allergy status to other drugs, medicaments and biological sub - Type 2 diabetes mellitus without complications 08/03/2018 12:38 [facility] [place] TYPE: Emergency COMPLAINT: - CHEST PAIN/FALL DIAGNOSES: - Other termite inspector (current) 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 - Personal history of malignant neoplasm of bladder - Allergy status to analgesic agent status - Allergy status to other drugs, medicaments and biological sub - shelter (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 aspirin - Hypothyroidism, unspecified - Exposure to other specified factors, initial encounter - Gastro-esophageal reflux disease without esophagitis - Other chest pain - Nicotine dependence, unspecified, uncomplicated - Fracture of one rib, left side, initial encounter for closed - Bipolar disorder, unspecified - Type 2 diabetes mellitus without complications - Unspecified asthma, uncomplicated - Chest pain, unspecified 07/28/2018 12:47 [facility] [place] TYPE: Emergency COMPLAINT: - CHEST PAIN DIAGNOSES: - Type 2 diabetes mellitus with diabetic neuropathy, unspecifie - Acquired absence of other specified parts of digestive tract - Old myocardial infarction - Presence of coronary angioplasty implant and graft - Acquired absence of both cervix and uterus - Nicotine dependence, unspecified, uncomplicated - Other termite inspector (current) 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 - shelter (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 oral hypoglycemic drugs - Chest pain, unspecified - Other chest pain - lobsterman (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 aspirin - Hypothyroidism, unspecified - Bipolar disorder, unspecified - Unspecified asthma, uncomplicated - Allergy status to other drugs, medicaments and biological sub 07/08/2018 15:50 [facility] [place] TYPE: Emergency COMPLAINT: - BURNING SENSATION IN LUNGS DIAGNOSES: - Allergy status to analgesic agent status - shelter (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 insulin - Bipolar disorder, unspecified - Hypothyroidism, unspecified - Acquired absence of both cervix and uterus - Allergy status to other drugs, medicaments and biological sub - Contact with and (suspected) exposure to other hazardous, chi - Acquired absence of other specified parts of digestive tract - Personal history of other malignant neoplasm of large intesti - lobsterman (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 aspirin - Personal history of malignant neoplasm of bladder - Contact with and (suspected) exposure to other hazardous, chi - Unspecified asthma, uncomplicated - Nicotine dependence, unspecified, uncomplicated - Nicotine dependence, cigarettes, uncomplicated - Type 2 diabetes mellitus without complications - Other snf (current) 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 INPATIENT VISIT TRACKING (12 MO.) No inpatient visits to display in this time frame [email or web address]
[2019-05-24] MEDS ORDERED: OZEMPIC1 MG/0.75 (16:13)
[2019-05-24] MEDS ORDERED: NORCO 5-325 TA1 EACH PO (19:48)
[2019-05-24] MEDS ORDERED: VENTOLIN HFA18 GM INH (19:51)
== END 2019-05-24 20:08 | disposition home or self-care (01) ==
LOC: ED 16:00
DX: S22.41XA Multiple fractures of ribs, right side, initial encounter for closed fracture (principal); E11.9 Type 2 diabetes mellitus without complications; E03.9 Hypothyroidism, unspecified; J44.9 Chronic obstructive pulmonary disease, unspecified; K21.9 Gastro-esophageal reflux disease without esophagitis; Z87.891 Personal history of nicotine dependence; Z79.899 Other long term (current) 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; W18.30XA Fall on same level, unspecified, initial encounter
CPT/HCPCS: 71260; 74177; 80053; 81001; 85025; 99285-25; J1170; J2405; J7030

== ENCOUNTER → 2019-07-31 | Emergency (ER) | payer MEDICARE, MEDICAID ==
[~2019-07-31] VITALS: Ht 157.5 cm; Wt 83.6 kg
[~2019-07-31] MED LIST changes: +OZEMPIC1 MG/0.75; +VENTOLIN HFA18 GM INH
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
--- OUTSIDE RECORDS SUMMARY | ~2019-07-31 | XMS | Encounter Summary ---
Demographics + + + | Address | [address] | | | [place] [address] | + + + | Home Phone | | + + + | Preferred Language | Unknown | + + + | Marital Status | Single | + + + | Buddhism Affiliation | Unknown | + + + | Race | Unknown | + + + | Ethnic Group | Unknown | + + + Author + + + | Author | [facility] | | | and [place] | + + + | Organization | [facility] | | | and [place] | + + + | Address | Unknown | + + + | Phone | Unavailable | + + + Support + + +---------+ + | Name | Relationship | Address | Phone | + + +---------+ + | Rebecca Manniner | ECON | Unknown | | + + +---------+ + Care Team Providers + +------+ + | Care Insulation Sprayer Name | Role | Phone | + +------+ + | Gonzales Rivera NP | PCP | | + +------+ + Reason for Visit + + + | Reason | Comments | + + + | Follow-up | regarding patient requesting [facility] cort[facility] | + + + Encounter Details +--------+ + + + + | Date | Type | Department | Care Team | Description | +--------+ + + + + | 04/07/ | Telephone | [facility] | Armida Cummins, | Follow-up (regarding | | 2020 | | [facility] | Director Presales | patient requesting | | | | [facility] [place] | | jackson cortes) | | | | [address] | | | | | | [phone] | | | +--------+ + + + + Social History + +-------+ +--------+------+ | Tobacco Use | Types | Packs/Day | Years | Date | | | | | Used | | + +-------+ +--------+------+ | Current Every Day | | | | | | Smoker | | | | | + +-------+ +--------+------+ + +---+---+---+ | Smokeless Tobacco: | | | | | Never Used | | | | + +---+---+---+ + + +---------+ + | Alcohol Use | Drinks/Week | oz/Week | Comments | + + +---------+ + | Not Currently | | | | + + +---------+ [...]
--- OUTSIDE RECORDS SUMMARY | ~2019-07-31 | XMS | Encounter Summary ---
Demographics + + + | Address | [address] | | | [place] [address] | + + + | Home Phone | | + + + | Preferred Language | Unknown | + + + | Marital Status | Single | + + + | Episcopal Affiliation | Unknown | + + + | Race | White | + + + | Ethnic Group | Not or | + + + Author + + + | Author | [facility] | + + + | Organization | [facility] | + + + | Address | Unknown | + + + | Phone | Unavailable | + + + Support + + + + + | Name | Relationship | Address | Phone | + + + + + | Lolis Rodriguez | [address]TY | [address] | | | | | [address] | | | | | [address] | | + + + + + Care Team Providers + +------+ + | Care Foam Rubber Molder Name | Role | Phone | + +------+ + | James Horne MD | PCP | | + +------+ + Encounter Details +--------+ + + + + | Date | Type | Department | Care Team | Description | +--------+ + + + + | 01/30/ | Telephone [facility] | Clair Kay MD | | | 2017 | | [facility] | [address] | | | | | [place] [address] | | | | | [address] | [place], [place] | | | | | [place], [address] [place] [address] | [address] | | | | | [place], [place] | [phone] | | | | | [address] | | | | | | [phone] | | | +--------+ + + + [...]
--- OUTSIDE RECORDS SUMMARY | ~2019-07-31 | XMS | Encounter Summary ---
Demographics + + + | Address | [address] | | | [place] [address] | + + + | Home Phone | | + + + | Preferred Language | Unknown | + + + | Marital Status | Single | + + + | Spiritism Affiliation | Unknown | + + + | Race | Unknown | + + + | Ethnic Group | Unknown | + + + Author + + + | Author | [facility] | | | and [place] | + + + | Organization | [facility] | | | and [place] | + + + | Address | Unknown | + + + | Phone | Unavailable | + + + Support + + +---------+ + | Name | Relationship | Address | Phone | + + +---------+ + | Rebeccanohemi Hughes | ECON | Unknown | | + + +---------+ + Care Team Providers + +------+ + | Care Ballistics Expert Forensic Name | Role | Phone | + +------+ + | Mahendra Merchant | PCP | | + +------+ + Reason for Referral Evaluate & Treat (Routine) + + + + + + + | Status | Reason | Specialty | Diagnoses / | Referred By | Referred To | | | | | Procedures | Contact | Contact | + + + + + + + | Authorized | Specialty | Physical | Diagnoses | Ludwig, | [facility] | | | Services | Therapy | Primary | Dean Ritchie MD | Pt Op 1268 | | | Required | | osteoarthrit | [address] | [address] | | | | | is of left | [address] | [place], [place] | | | | | hip | [place], | [address] | | | | | Procedures | [place] [address] | Phone: | | | | | [facility] | Phone: | [phone] | | | | | | [phone] | Fax: | | | | | | Fax: | [phone] | | | | | | [phone] | | + + + + + + + Reason for Visit + + + | Reason | Comments | + + + | Pre-op Exam | L TORI | + + + Evaluate & Treat (Urgent) + +--------+ + + + + | Status | Reason | Specialty | Diagnoses / | Referred By | Referred To | | | | | Procedures | Contact | Contact | + +--------+ + + + + | Authorized | | Orthopedic | Diagnoses | Ed[facility] | [facility] | | | | Surgery | Pain in | Sharron Zaheer, | [place] [address] | | | | | left hip | PA-C [address] | | | | | Other | [address] | [place], [place] | | | | | chronic pain | AVE | [address] | | | | | | [place], | Phone: | | | | | | [place] [address] | [phone] | | | | | | Phone: | Fax: | | | | | | [phone] | [phone] | | | | | | Fax: | | | | | | | [phone] | | + +--------+ + + + + Encounter Details +--------+---------+ + + + | Date | Type | Department | Care Team | Description | +--------+---------+ + + + | 07/25/ | Office | [facility] | Ludwig, Dean G, | Primary | | 2020 | Visit | [address] [address] | MD [address] | osteoarthritis of | | | | BLVD [place], [place] | [address] [place], [place] | left hip (Primary | | | | [address] | [address] | Dx) | | | | [phone] | | | +--------+---------+ + + + Social History + +-------+ [...] + + + | Blood Pressure | 128/60 | 07/26/2019 3:22 PM | | | | | PDT | | + + + + + | Pulse | 72 | 07/26/2019 3:22 PM | | | | | PDT | | + + + + + | Temperature | 37 C (98.6 F) | 07/26/2019 3:22 PM | | | | | PDT | | + + + + + | Respiratory Rate | - | - | | + + + + + | Oxygen Saturation | 95% | 07/26/2019 3:22 PM | | | | | PDT | | + + + + + | Inhaled Oxygen | - | - | | | Concentration | | | | + + + + + | Weight | 82.8 kg (182 lb 9.6 | 07/26/2019 3:22 PM | | | | oz) | PDT | | + + + + + | Height | 157.5 cm (5' 2") | 07/26/2019 3:22 PM | | | | | PDT | | + + + + + | Body Mass Index | 33.4 | 07/26/2019 3:22 PM | | | | | PDT | | + + + + + documented in this encounter Progress Notes Dean Munroe MD - 07/26/2019 2:40 PM PDTFormatting of this note might be different fr om the original. 07/26/2019 Email Address:[email or web address] Chief Complaint Chief Complaint Patient presents with Pre-op Exam L TORI HPI Laury Crockett is a 58 y.o. female who presents with a chief complaint of Chief Complaint Patient presents with Pre-op Exam L TORI . The patient's symptoms have been ongoing for 3-4 years, patient has been using a wheel c hair for the past year due to pain & falls. Character Worsening.Patient is currently in PT and will do ok in the pool but not ready for use of machines. Patient has also tried inje ctions for pain. Patient experiences numbness, tingling and swelling on her lower back. The patient is now been non-smoking for 5 weeks per her report. Patient complains of groin p ain and lateral hip pain. Patient has tried NSAIDsat a higher than safe quantity and dur ation. She feels that if she does not take them in this way that they do not help her. We had initially planned to do a left total hip arthroplasty but due to the quarantine we are unable to get this done for her. She now comes in for preop visit again and attempt to get this done for her. Vital Signs Vitals: 07/26/19 1522 BP: 128/60 Pulse: 72 Temp: 37 C (98.6 F) PainSc: 7 PainLoc: Hip Body mass index is 33.4 kg/m. Past Medical History: Diagnosis Date Ankylosing spondylitis (HCC) Arthritis Carpal tunnel syndrome Fractures Osteoarthritis Osteoporosis Scoliosis Spondylolisthesis History reviewed. No pertinent surgical history. Social History Tobacco Use Smoking status: Current Every Day Smoker Smokeless tobacco: Never Used Substance Use Topics Alcohol use: Not Currently Drug use: Not Currently History reviewed. No pertinent family history. Current Medications Current Outpatient Medications: albuterol 2.5 mg/3 mL nebulizer solution, Inhale 2.5 mg into the lungs., Disp: , Rfl: albuterol-ipratropium 2.5-0.5 mg/3 mL SOLN, Inhale 3 mLs into the lungs., Disp: , Rfl: Aspirin Buf,CzTwjg-JeAkmb-GhF, 81 MG TABS, Take 81 mg by mouth., Disp: , Rfl: atorvaSTATin (LIPITOR) 80 MG tablet, , Disp: , Rfl: Djfnlan-Wkwpjyupu-Zqsiriy D 185-50-100 MG-MG-UNIT CAPS, Calcium Magnesium + D, Disp: , Rfl: COMBIGAN 0.2-0.5 % ophthalmic solution, , Disp: , Rfl: diazePAM (VALIUM) 10 MG tablet, , Disp: , Rfl: diphenhydrAMINE (BENADRYL) 50 MG tablet, Take 50 mg by mouth nightly as needed for Itc mario., Disp: , Rfl: DUREZOL 0.05 % EMUL opthalmic soln, , Disp: , Rfl: fenofibrate (TRICOR) 145 mg tablet, take 1 tablet by mouth once daily, Disp: , Rfl: fluticasone (FLONASE) 50 mcg/nasal spray, INSTILL 1 TO 2 SPRAYS IEN BID, Disp: , Rfl: 0 HUMALOG 100 UNIT/ML injection (vial), , Disp: , Rfl: 2 HUMALOG KWIKPEN 100 UNIT/ML injection (pen), , Disp: , Rfl: HYDROcodone-acetaminophen (NORCO) 5-325 mg per tablet, take 1 tablet by mouth every 6 hours if needed for pain, Disp: , Rfl: ibuprofen (ADVIL,MOTRIN) 800 MG tablet, take 1 tablet by mouth every 8 hours if needed for pain, Disp: , Rfl: Insulin Syringe-Needle U-100 (INSULIN SYRINGE .3CC/30GX5/16") 30G X 5/16" 0.3 ML MISC, , Disp: , Rfl: 5 Insulin Syringe-Needle U-100 (INSULIN SYRINGE .5CC/31GX5/16") 31G X 5/16" 0.5 ML MISC, USE TO INJECT LANTUS QHS, Disp: , Rfl: 5 JARDIANCE 10 MG tablet, take 1 tablet by mouth once daily, Disp: , Rfl: lamoTRIgine (LAMICTAL) 150 MG tablet, , Disp: , Rfl: lamoTRIgine (LAMICTAL) 200 MG tablet, , Disp: , Rfl: LANTUS 100 UNIT/ML injection (vial), INJECT 10 UNITS UNDER THE SKIN QHS, Disp: , Rfl: 2 levothyroxine (SYNTHROID) 100 mcg tablet, TK 1 T PO QD, Disp: , Rfl: 1 metoprolol succinate (TOPROL-XL) 25 mg 24 hr tablet, TK 1 T PO BID, Disp: , Rfl: 11 Multiple Vitamin (MULTIVITAMIN) capsule, Take 1 capsule by mouth., Disp: , Rfl: nitroglycerin (NITROSTAT) 0.4 mg SL tablet, Place 0.4 mg under the tongue., Disp: , Rf l: omeprazole (PRILOSEC) 20 mg capsule, TK 1 C PO D, Disp: , Rfl: 3 ondansetron (ZOFRAN ODT) 4 mg disintegrating tablet, DIS ONE T PO Q 8 HOURS NEEDED, Disp: , Rfl: 0 OZEMPIC, 0.25 OR 0.5 MG/DOSE, 2 MG/1.5ML injection, , Disp: , Rfl: prazosin (MINIPRESS) 5 mg capsule, , Disp: , Rfl: PREMARIN 0.625 MG/GM vaginal cream, INSERT 1 GRAM VAGINALLY AT NIGHT TWICE A WEEK, Dis p: , Rfl: 3 promethazine (PHENERGAN) 25 mg tablet, TAKE 1 TABLET BY MOUTH EVERY 6 HOURS NEEDED FOR NAUSEA, Disp: , Rfl: sertraline (ZOLOFT) 100 mg tablet, TAKE 2 TABLETS BY MOUTH AT BEDTIME, Disp: , Rfl: tiotropium (SPIRIVA RESPIMAT) 1.25 mcg/puff inhaler, Spiriva Respimat once qday, Disp : , Rfl: VENTOLIN HFA 108 (90 Base) MCG/ACT inhaler, INL 2 PFS PO Q 4 H PRF WHZ OR SOB, Disp: , Rfl: 11 Allergies Allergies Allergen Reactions Celecoxib Shortness Of Breath and Swelling Rizatriptan Anaphylaxis "Swelling of throat & asthma attack" Solifenacin Anaphylaxis Tramadol Anaphylaxis and Hives Duloxetine Other (See Comments) Suicidal thoughts Family History family history is not on file. Social History Social History Tobacco Use Smoking status: Current Every Day Smoker Smokeless tobacco: Never Used Substance Use Topics Alcohol use: Not Currently Drug use: Not Currently Active comorbid conditions include: - Drugs/Alcohol/Tobacco - tobacco use ROS Review of Systems Constitutional: Negative for chills and fever. Respiratory: Negative for shortness of breath. Cardiovascular: Positive for leg swelling. Negative for chest pain and claudication. Genitourinary: Negative for dysuria. Musculoskeletal: Positive for joint pain. Skin: Negative for rash. Neurological: Positive for weakness. Negative for sensory change. Endo/Heme/Allergies: Does not bruise/bleed easily. All other systems reviewed and are negative. ROS Review of Systems Constitutional: Negative forchillsand fever. Respiratory: Positive forshortness of breath. Cardiovascular: Negative forchest pain,claudicationand leg swelling. Genitourinary: Negative fordysuria. Musculoskeletal: Positive forjoint pain. Skin: Negative forrash. Neurological: Positive forweakness. Negative forsensory change. Endo/Heme/Allergies:Does not bruise/bleed easily. All other systems reviewed and are negative. Physical Exam Well Developed, Well Nourished Gait: Antalgic Assistive Device: None Awake, Alert, and Oriented X3 Mood and Affect appropriate for situation Breathing unlabored Hip: Left: Exquisite tenderness to palpation left greater trochanter ROM: Knee range of motion the hip re-creates significant lateral and groin pain Strength: 5/5 with knee extension and ankle planter/dorsiflexion Sensation intact in DP/SP/MUNOZ/SA/PT distributions Right: NTTP ROM: Full Strength: 5/5 with knee extension and ankle planter/dorsiflexion Sensation intact in DP/SP/MUNOZ/SA/PT distributions Full painless ROM of bilateral knees with NTTP throughout bilateral knees. IMAGING: No results found for this or any previous visit (from the past 360 hour(s)). X-rays of the pelvis and left hip were reviewed which demonstrate right total hip arthropla sty in good position without evidence of loosening or subsidence. The left hip has severe end-stage nzga-ir-ptpn osteoarthritis with subchondral sclerosis and cysts on both the femor al and acetabular side. There is also marginal osteophyte formation Assessment and Plan ICD-10-CM ICD-9-CM 1. Primary osteoarthritis of left hip M16.12 715.15 Case Request - OR/ENDO/ASC/OB: ARTHROPL ASTY HIP Ambulatory Referral to [facility] Physical Therapy 58-year-old female with severe end-stage left hip osteoarthritis is severely symptomatic an d which is failed to improve with conservative measures. The patient would like to proceed with left total hip arthroplasty. It was discussed with the patient about the nature of the disease and its overall prognosis and treatment considerations including operative and non-operative measures. The anticipat ed course of benefits, possible risks, and complications were explained. These include but are not limited to , infection, and thrombosis. The possibility of damage to structure s near the operative field such as nerves, blood vessels, tendons, ligaments, and bone were discussed with the patient. All questions were answered. The patient indicated their under standing and wished to proceed. Overnight stay Aspirin There is potentially an issue with her having somebody to be with her the first 72 hours. She does give me an assurance that she will nature somebody is there with her. I think she would benefit from a home health consult as well. Return for post op 2 weeks. No notes on file Dean Munroe MD documented in this e ncounter Plan of Treatment + + +--------+ + + | Name | Type | Priori | Associated Diagnoses | Order Schedule | | | | ty | | | + + +--------+ + + | Ambulatory Referral | Outpatient | Routin | Primary | Ordered: 07/27/2019 | | to [facility] Physical | Referral | e | osteoarthritis of | | | Therapy | | | left hip | | + + +--------+ + + documented as of this encounter Visit Diagnoses + + | Diagnosis | + + | Primary osteoarthritis of left hip - Primary Primary localized osteoarthrosis, pelvic | | region and thigh | + + documented in this encounter
--- OUTSIDE RECORDS SUMMARY | ~2019-07-31 | XMS | Encounter Summary ---
Demographics + + + | Address | [address] | | | [place] [address] | + + + | Home Phone | | + + + | Preferred Language | Unknown | + + + | Marital Status | Single | + + + | Catholic Affiliation | Unknown | + + + | Race | White | + + + | Ethnic Group | Not or | + + + Author + + + | Author | [facility] | + + + | Organization | [facility] | + + + | Address | Unknown | + + + | Phone | Unavailable | + + + Support + + + + + | Name | Relationship | Address | Phone | + + + + + | Lolis Rodriguez | SCOTTY | [address] | | | | | [address] | | | | | [address] | | + + + + + Care Team Providers + +------+ + | Care Social Service Agency Director Name | Role | Phone | [...] | | | postprocedur | LEGACY | [place] | | | | | al | MEDICAL | [address] | | | | | status(V45.8 | GROUP | [place], | | | | | 9) | [place] | [place], [place] | | | | | Procedures | [address] | [address] | | | | | [address] | [address] | Phone: | | | | | LABS | [address] | [phone] | | | | | | [place], [place] | Fax: | | | | | | [address] | [phone] | | | | | | Phone: | | | | | | | [phone] | | | | | | | Fax: | | | | | | | [phone] | | +--------+--------+ + + + + Encounter Details +--------+ + + + + | Date | Type | Department | Care Team | Description | +--------+ + + + + | 03/09/ | [facility] | [facility] | [place] Nurse | Central Line Care | | 2016 | l Support | [facility] [place] | [address] | ([facility]) | | | Staff | [address], | [address] [place], [place] | | | | | [place], [place] | [address] | | | | | [address] | [phone] | | | | | [phone] | | | | | | | Sree Jain Ma | | | | | | Schedule [place], | | | | | | [place] [address] | | +--------+ + + + + [...]
--- OUTSIDE RECORDS SUMMARY | ~2019-07-31 | XMS | Encounter Summary ---
Demographics + + + | Address | [address] | | | [place] [address] | + + + | Home Phone | | + + + | Preferred Language | Unknown | + + + | Marital Status | Single | + + + | Episcopal Affiliation | Unknown | + + + | Race | Unknown | + + + | Ethnic Group | Unknown | + + + Author + + + | Author | [facility] | | | and [place] | + + + | Organization | [facility] | | | and [...] Team Providers + +------+ + | Care Booth Cashier Name | Role | Phone | + +------+ + | Mahendra Merchant | PCP | | + +------+ + Reason for Visit + + + | Reason | Comments | + + + | Surgery Appointment | | + + + Encounter Details +--------+ + + + + | Date | Type | Department | Care Team | Description | +--------+ + + + + | 05/05/ | Telephone | [facility] | Dean Munroe, | Surgery Appointment | | 2020 | | [place] [address] | [address] | | | | | BLVD [place], [place] | [place] [place], [place] | | | | | [address] | [address] | | | | | [phone] | | | +--------+ + + + [...]
--- OUTSIDE RECORDS SUMMARY | ~2019-07-31 | XMS | Encounter Summary ---
Demographics + + + | Address | [address] | | | [place] [address] | + + + | Home Phone | | + + + | Preferred Language | Unknown | + + + | Marital Status | Single | + + + | Spiritism Affiliation | Unknown | + + + | Race | Unknown | + + + | Ethnic Group | Unknown | + + + Author + + + | Author | [facility] | | | and [place] | + + + | Organization | [facility] | | [...] Team Providers + +------+ + | Care Silver Recovery Operator Name | Role | Phone | + +------+ + | Gonzales Rivera NP | PCP | | + +------+ + Reason for Visit + + + | Reason | Comments | + + + | Service Request | | + + + Encounter Details +--------+ + + + + | Date | Type | Department | Care Team | Description | +--------+ + + + + | 04/07/ | Telephone | [facility] | Armida Cummins, | Service Request | | 2020 | | [address] | Flower Maker | | | | | [place], [place] | | | | | | [address] | | | | | | [phone] | | | +--------+ + + + [...]
--- OUTSIDE RECORDS SUMMARY | ~2019-07-31 | XMS | Encounter Summary ---
Demographics + + + | Address | [address] | | | [place] [address] | + + + | Home Phone | | + + + | Preferred Language | Unknown | + + + | Marital Status | Single | + + + | Worship Affiliation | Unknown | + + + | Race | Unknown | + + + | Ethnic Group | Unknown | + + + Author + + + | Author | [facility] | | | and [place] | + + + | Organization | [facility] | | | [...] Team Providers + +------+ + | Care Grain Elevator Worker Name | Role | Phone | + +------+ + | Mahendra Merchant | PCP | | + +------+ + Reason for Visit + + + | Reason | Comments | + + + | Cancel Surgery | | + + + Encounter Details +--------+ + + + + | Date | Type | Department | Care Team | Description | +--------+ + + + + | 05/09/ | Telephone | [facility] | Armida Cummins, | Cancel Surgery | | 2019 | | [place] [address] | Apartment Maintenance | | | | | [place], [place] | | | | | | [address] | | | | | | [phone] | | | +--------+ + + + [...]
--- OUTSIDE RECORDS SUMMARY | ~2019-07-31 | XMS | Encounter Summary ---
Demographics + + + | Address | [address] | | | [place] [address] | + + + | Home Phone [...] [address] | | | | | [address] | | | | | [address] | | + + + + + Care Team Providers + +------+ + | Care General Internist And Physician Leader Name | Role | Phone | + [...] Care | | 2016 | Support | [facility] [place] | [address] | | | | Staff | [address], | [address] [place], [place] | | | | | [place], [place] | [address] | | | | | [address] | [phone] | | | | | [phone] | | | | | | | Cristobal Sree Carrizales | | | | | | Schedule [place], | | | | | | [place] [address] | | +--------+ + + + + [...]
--- OUTSIDE RECORDS SUMMARY | ~2019-07-31 | XMS | Encounter Summary ---
Demographics + + + | Address | [address] | | | [place] [address] | + + + | Home Phone [...] + + + | Author | [facility] | | | and [place] | + + + | Organization | [facility] | | | [...] Team Providers + +------+ + | Care Pool Hand Name | Role | Phone | + +------+ + | Mahendra Merchant | PCP | | + +------+ + Reason for Visit + + + | Reason | Comments | + + + | Medication Question | | + + + Encounter Details +--------+ + + + + | Date | Type | Department | Care Team | Description | +--------+ + + + + | 05/03/ | Telephone | [facility] | Armida Cummins, | Medication Question | | 2019 | | [place] [address] [place] [address] | [address] | | | | | BLVD [place], [place] | | | | | | [address] | | | | | | [phone] | | | +--------+ + + + [...]
--- OUTSIDE RECORDS SUMMARY | ~2019-07-31 | XMS | Encounter Summary ---
Demographics + + + | Address | [address] | | | [place] [address] | + + + | Home Phone [...] Author | [facility] | + + + | Organization | [facility] | + + + | Address | Unknown | + + + | Phone | Unavailable | + + + Support + + + + + | Name | Relationship | Address | Phone | + + + + + | Lolis Rodriguez | SCOTTY | [address] | | | | | [address] | | | | | [address] | | + + + + + Care Team Providers + +------+ + | Care Income Tax Return Preparer Name | Role | Phone | + [...] | | | al | MEDICAL | [address] | | | | | status(V45.8 | GROUP | [place], | | | | | 9) | [place] | [place], [place] | | | | | Procedures | [address] | [address] | | | | | [address] | [address] | Phone: | | | | | LABS | [address] | [phone] | | | | | | [place], [place] | Fax: | | | | | | [address] | [phone] | | | | | | Phone: | | | | | | | [phone] | | | | | | | Fax: | | | | | | | [phone] | | +--------+--------+ + + + + Encounter Details +--------+ + + + + | Date | Type | Department | Care Team | Description | +--------+ + + + + | 10/10/ | [facility] | [facility] | Sree Abdul Nurse | Central Line Care | | 2014 | l Support | [facility] [place] | [address] | | | | Staff | [address], | [address] [place], [place] | | | | | [place], [place] | [address] | | | | | [address] | [phone] | | | | | [phone] | | | | | | | Sree Jain Ma | | | | | | Schedule [place], | | | | | | [place] [address] | | +--------+ + + + + [...] encounter Progress Notes Tari Shankar, RN - 10/10/2013 4:12 PM ROSALIELaury Javed is here today for port flush. [...]
--- OUTSIDE RECORDS SUMMARY | ~2019-07-31 | XMS | Clinical Summary ---
Demographics + + + | Address | [address] | | | [place] [address] | + + + | Home Phone [...] [place] | | | | | [address] | | + + + + + Care Team Providers + +------+ + | Care Lead C Developer Name | Role | Phone | + +------+ + | James Horne MD | PCP | | + +------+ + Source Comments SAHRON is fully live on both [facility] and [facility] Allergies + + + + + + [...] 05/12 | | e | | ULTRA-FINE ROGERIO PEN | | | | 15 | [...] | 04/1 | | Activ | | [id number] | needed. | | | 1/20 | [...] | | | | | | | [address] | | + +--------+ +--------+ + +--------+ + +--------+ +--------+ + + | Guarantor Name | Accoun | Relation to | Date | Phone | Billing Address | | | t Type | Patient | of | | | | | | | | | | + +--------+ +--------+ + + | Laury Crockett | Person | Self | [birth year] | [address] | | | al/Fam | | 1961 | [phone] | [place] | | | de | | | 9 (Home) | [address] | + +--------+ +--------+ + +
--- OUTSIDE RECORDS SUMMARY | ~2019-07-31 | XMS | Encounter Summary ---
Demographics + + + | Address | [address] | | | [place] [address] | + + + | Home Phone [...] Team Providers + +------+ + | Care Quality Control Specialist Name | Role | Phone | + +------+ + | Mahendra Merchant | PCP | | + +------+ + Reason for Visit +--------+ + | Reason | Comments | +--------+ + | Pre-Op | | +--------+ + Encounter Details +--------+ + + + + | Date | Type | Department | Care Team | Description | +--------+ + + + + | 05/16/ | Telephone | [facility] | Armida Cummins, | Pre-Op | | 2019 | | [place] [address] [place] [address] | [address] | | | | | BLVD [place], [place] | | | | | | [address] | | | | | | [phone] | | | +--------+ + + + [...]
--- OUTSIDE RECORDS SUMMARY | ~2019-07-31 | XMS | Encounter Summary ---
Demographics + + + | Address | [address] | | | [place] [address] | + + + | Home Phone | | + + + | Preferred Language | Unknown | + + + | Marital Status | Single | + + + | Buddhist Affiliation | Unknown | + + + | Race | Unknown | + + + | Ethnic Group | Unknown | + + + Author + + + | Author | [facility] | | | and [place] | + + + | Organization | [facility] | | [...] Team Providers + +------+ + | Care Fur Scraper Name | Role | Phone | + [...] | Pain in | Sharron Schwab, | [place] [address] | | | | | left hip | PA[address]C [address] | | | | | Other | [address] | [place], [place] | | | | | chronic pain | AVE | [address] | | | | | | [place], | Phone: | | | | | | [place] [address] | [phone] | | | | | | Phone: | Fax: | | | | | | [phone] | [phone] | | | | | | Fax: | | | | | | | [phone] | | + +--------+ + + + + Encounter Details +--------+---------+ + + + | Date | Type | Department | Care Team | Description | +--------+---------+ + + + | 03/16/ | Office | [facility] | Dean Munroe, | Primary | | 2020 | Visit | [address] | [address] | osteoarthritis of | | | | BLVD [place], [place] | [address] [place], [place] | left hip (Primary | | | | [address] | [address] | Dx); Left hip pain | | | | [phone] | | | +--------+---------+ + + + [...] on 03/16/2019), Disp: 30 capsule, Rfl: 0 Opdrowj-Sbzltiiue-Qzqmove D 185-50-100 MG-MG-UNIT CAPS, Calcium Magnesium + [...] 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 We will select a elisabet e for late April for surgery and [...] REFERENCE | | | | performed at [facility];[address] | | LAB | | | | [place] | | [facility] | | | | [address];[place] [address] | | LABORATORY | | + + + + + + + + | Specimen | + + | Blood | + + + + + + + | Performing | Address | City/State/Zipcode | Phone Number | | Organization | | | | + + + + + | REFERENCE LAB | [address] [facility] [address] | [place] | [phone] | | [facility] | Bl[address] | [address] | | | LABORATORY | | | | + + + + + | REFERENCE LAB | [address] [facility] [address] | [place] | | | [facility] | Blvd. | [address] | | | LABORATORY | | | [...] REFERENCE | | | | performed at [facility];[address] | | LAB | | | | [place] | | [facility] | | | | Blvd;[place] [address] | | LABORATORY | | + + + + + + + + | Specimen | + + | Blood | + + + + + + + | Performing | Address | City/State/Zipcode | Phone Number | | Organization | | | | + + + + + | REFERENCE LAB | [address] [facility] | [place] | [phone] | | [facility] | Blvd[address] | [address] | | | LABORATORY | | | | + + + + + | REFERENCE LAB | [address] | [place] | | | [facility] | Blvd. | [address] | | | LABORATORY | | | [...]
--- OUTSIDE RECORDS SUMMARY | ~2019-07-31 | XMS | Encounter Summary ---
Demographics + + + | Address | [address] | | | [place] [address] | + + + | Home Phone [...] Author + + + | Author | [facility] | + + + | Organization | [facility] | + + + | Address | Unknown | + + + | Phone | Unavailable | + + + Support + + + + + | Name | Relationship | Address | Phone | + + + + + | Lolis Rodriguez | SCOTTY | [address] | | | | | [place] | | | | | [address] | | + + + + + Care Team Providers + +------+ + | Care Senior Information Security Engineer Name | Role | Phone | [...] | | | al | MEDICAL | [address] | | | | | status(V45.8 | GROUP | [place], | | | | | 9) | [place] | [place], [place] | | | | | Procedures | [address] | [address] | | | | | [address] | [address] | Phone: | | | | | LABS | [address] | [phone] | | | | | | [place], [place] | Fax: | | | | | | [address] | [phone] | | | | | | Phone: | | | | | | | [phone] | | | | | | | Fax: | | | | | | | [phone] | | +--------+--------+ + + + + Encounter Details +--------+ + + + + | Date | Type | Department | Care Team | Description | +--------+ + + + + | 10/10/ | [facility] | [facility] | Sree Abdul Nurse | Central Line Care | | 2014 | l Support | [facility] [place] | [address] | | | | Staff | [address], | [address] [place], [place] | | | | | [place], [place] | [address] | | | | | [address] | [phone] | | | | | [phone] | | | | | | | Sree Jain Ma | | | | | | Schedule [place], | | | | | | [place] [address] | | +--------+ + + + + [...]
--- OUTSIDE RECORDS SUMMARY | ~2019-07-31 | XMS | Encounter Summary ---
Demographics + + + | Address | [address] | | | [place] [address] | + + + | Home Phone | | + + + | Preferred Language | Unknown | + + + | Marital Status | Single | + + + | Methodist Affiliation | Unknown | + + + | Race | White | + + + | Ethnic Group | Not or | + + + Author + + + | Author | [facility] | + + + | Organization | [facility] | + + + | Address | Unknown | + + + | Phone | Unavailable | + + + Support + + + + + | Name | Relationship | Address | Phone | + + + + + | Lolis Rodriguez | SC[place] | [address] | | | | | [place] | | | | | [address] | | + + + + + Care Team Providers + +------+ + | Care Buyer Grain Name | Role | Phone | + [...] Care | | 2016 | Support | [facility] [place] | [address] | | | | Staff | [address], | [address] [place], [place] | | | | | [place], [place] | [address] | | | | | [address] | [phone] | | | | | [phone] | | | | | | | Cristobal Sree Carrizales | | | | | | Schedule [place], | | | | | | [place] [address] | | +--------+ + + + + [...]
--- OUTSIDE RECORDS SUMMARY | ~2019-07-31 | XMS | Encounter Summary ---
Demographics + + + | Address | [address] | | | [place] [address] | + + + | Home Phone | | + + + | Preferred Language | Unknown | + + + | Marital Status | Single | + + + | Temple Affiliation | Unknown | + + + | Race | White | + + + | Ethnic Group | Not or | + + + Author + + + | Author | [facility] | + + + | Organization | [facility] | + + + | Address | Unknown | + + + | Phone | Unavailable | + + + Support + + + + + | Name | Relationship | Address | Phone | + + + + + | Lolis Rodriguez | SC[place]TY | [address] | | | | | [place] | | | | | [address] | | + + + + + Care Team Providers + +------+ + | Care Tricot Knitting Machine Operator Name | Role | Phone | + +------+ + | James Horne MD | PCP | | + +------+ + Encounter Details +--------+ + + + + | Date | Type | Department | Care Team | Description | +--------+ + + + + | 07/11/ | Hospital | Registration [facility] | | | | 2017 | Encounter | [address] | | | | | | [place]ra Qu[place], | | | | | | [place] [address] | | | +--------+ + + + [...] Inject 74 Units | | 0 | 03/08/20 | | | 100 unit/mL (3 mL) [...] | | | | | | | 16 syringe | | | | | | [...] | 0 | 06/04/19 | | | lafsosld-aeaaceuqu-n | needed. | | | 16 | [...]
--- OUTSIDE RECORDS SUMMARY | ~2019-07-31 | XMS | Encounter Summary ---
Demographics + + + | Address | [address] | | | [place] [address] | + + + | Home Phone | | + + + | Preferred Language | Unknown | + + + | Marital Status | Single | + + + | Pentecostalism Affiliation | Unknown | + + + | Race | Unknown | + + + | Ethnic Group | Unknown | + + + Author + + + | Author | [facility] | | | and [place] | + + + | Organization | [facility] | | [...] Team Providers + +------+ + | Care Ranch Supervisor Name | Role | Phone | + [...] | | [address] [place] | [place] [address] | | | | | [place] [address] | | | | | | [phone] | | | +--------+ + + + [...] +--------+ + + + | XR KNEE BILATERAL AP | Routin | 05/28/2016 | | Results for this | | STANDING | e | 12:00 AM | | procedure are in the | | | | PDT | | results section. | + +--------+ + + + documented in this encounter Results XR Knee Bilateral AP Standing (05/28/2016 12:00 AM PDT) + + | Specimen | [...]
--- OUTSIDE RECORDS SUMMARY | ~2019-07-31 | XMS | Encounter Summary ---
Demographics + + + | Address | [address] | | | [place] [address] | + + + | Home Phone | | + + + | Preferred Language | Unknown | + + + | Marital Status | Single | + + + | Cheondoism Affiliation | Unknown | + + + [...] Team Providers + +------+ + | Care Mailroom Messenger Name | Role | Phone | + [...] Cancel Surgery | | 2019 | | [place] [address] [facility] | Dispensing Audiologist | | | | | [place], [place] | | | | | | [address] | | | | | | [phone] | | | +--------+ + + + [...]
--- OUTSIDE RECORDS SUMMARY | ~2019-07-31 | XMS | Encounter Summary ---
Demographics + + + | Address | [address] | | | [place] [address] | + + + | Home Phone | | + + + | Preferred Language | Unknown | + + + | Marital Status | Single | + + + | Worship Affiliation | Unknown | + + + | Race | Unknown | + + + | Ethnic Group | Unknown | + + + Author + + + | Author | [facility] | | | and [place] | + + + | Organization | [facility] | | | [...] Team Providers + +------+ + | Care Zoo Veterinarian Name | Role | Phone | + +------+ + | Gonzales Rivera NP | PCP | | + +------+ + Reason for Visit + + + | Reason | Comments | + + + | Hip Pain | bilateral hip pain | + + + Evaluate & Treat (Routine) +--------+--------+ + + + + | Status | Reason | Specialty | Diagnoses / | Referred By | Referred To | | | | | Procedures | Contact | Contact | +--------+--------+ + + + + | Closed | | Orthopedic | Diagnoses | Miguel, | Jeremy, | | | | Surgery | Bilateral | Gonzales Mccray, | Eddy Malloy MD | | | | | primary | [employer] [address] | [address] | | | | | osteoarthrit | [address] [place] | | | | | is of knee | ROXI SRINIVASAN, | [place] | | | | | Bilateral | [address] | [address] Phone: | | | | | osteoarthrit | [place], | [phone] | | | | | is resulting | [place] [address] | Fax: | | | | | from hip | Phone: | [phone] | | | | | dysplasia | [phone] | | | | | | | Fax: | | | | | | | [phone] | | +--------+--------+ + + + + Encounter Details +--------+---------+ + + + | Date | Type | Department | Care Team | Description | +--------+---------+ + + + | 01/06/ | Office | [facility] | Rigo Muniz | Left knee pain, | | 2017 | Visit | ORTHOPEDIC SURGERY | [address] | unspecified | | | | [address] [facility] | [address] [place] | chronicity (Primary | | | | [place], [place] | [place] [address] | Dx); Left hip pain; | | | | [address] | [phone] | Primary | | | | [phone] | | osteoarthritis of | | | | | | right knee; Primary | | | | | | osteoarthritis of | | | | | | left knee; Greater | | | | | | trochanteric | | | | | | bursitis, | | | | | | unspecified | | | | | | laterality | +--------+---------+ + + + Social History [...] Blood Pressure | - | - | | + + + + + | Pulse | - | - | | + [...] Weight | 83.9 kg (185 lb) | 01/06/2018 2:57 PM | | | | | PST | | + + + + + | Height | 157.5 cm (5' 2") | 01/06/2018 2:57 PM | | | | | PST | | + + + + + | Body Mass Index | 33.84 | 01/06/2018 2:57 PM | | | | | PST | | + + + + + documented in this encounter Plan of Treatment Not on filedocumented as of this encounter Visit Diagnoses + + | Diagnosis | + + | Left knee pain, unspecified chronicity - Primary | + + | Left hip pain Pain in joint, pelvic region and thigh | + + | Primary osteoarthritis of right knee Primary localized osteoarthrosis, lower leg | + + | Primary osteoarthritis of left knee Primary localized osteoarthrosis, lower leg | + + | Greater trochanteric bursitis, unspecified laterality | + + documented in this encounter Administered Medications + +--------+ +------+------+ + | Medication Order | MAR | Action | Dose | Rate | Site | | | Action | Date | | | | + +--------+ +------+------+ + | betamethasone (CELESTONE | Given | 01/07/20 | 9 mg | | Hip-Left | | SOLUSPAN) injection 9 mg 9 mg, | | 18 4:00 | | | | | Other, ONCE, Thu01/06/18 at | | PM PST | | | | | 1600, For 1 dose, Shake well. Not | | | | | | | for IV use., | | | | | | + +--------+ +------+------+ + +---+---+ | | | +---+---+ + +-------+ +------+---+ + | betamethasone (CELESTONE | Given | 01/07/20 | 9 mg | | Knee-Lef | | SOLUSPAN) injection 9 mg 9 mg, | | 18 4:00 | | | t | | Other, ONCE, Thu01/06/18 at | | PM PST | | | | | 1600, For 1 dose, Shake well. Not | | | | | | | for IV use., | | | | | | + +-------+ +------+---+ + +---+---+ | | | +---+---+ documented in this encounter
--- OUTSIDE RECORDS SUMMARY | ~2019-07-31 | XMS | Encounter Summary ---
Demographics + + + | Address | [address] | | | [place] [address] | + + + | Home Phone [...] [address] | | | | | [place], [place] | | | | | [address] | | + + + + + Care Team Providers + +------+ + | Care Assistant Manager Airside Operations Name | Role | Phone | + [...]
--- OUTSIDE RECORDS SUMMARY | ~2019-07-31 | XMS | Encounter Summary ---
Demographics + + + | Address | [address] | | | [place] [address] | + + + | Home Phone | | + + + | Preferred Language | Unknown | + + + | Marital Status | Single | + + + | Restoration Affiliation | Unknown | + + + | Race | Unknown | + + + | Ethnic Group | Unknown | + + + Author + + + | Author | [facility] | | | and [place] | + + + | Organization | [facility] | | | [...] Team Providers + +------+ + | Care Inlayer Silver Name | Role | Phone | + [...] (regarding | | 2020 | | [facility] [address] | Problem Manager | patient requesting | | | | [facility] | | [place]) | | | | [address] | | | | | | [phone] | | | +--------+ + + + [...]
--- OUTSIDE RECORDS SUMMARY | ~2019-07-31 | XMS | Encounter Summary ---
Demographics + + + | Address | [address] | | | [place] [address] | + + + | Home Phone | | + + + | Preferred Language | Unknown | + + + | Marital Status | Single | + + + | Church Affiliation | Unknown | + + + | Race | Unknown | + + + | Ethnic Group | Unknown | + + + Author + + + | Author | [facility] | | | and [place] | + + + | Organization | [facility] | | | [...] Providers + +------+ + | Care Manager Metal Name | Role | Phone | + [...] Medication Question | | 2019 | | [place] [address] [place] [address] | Machine Cloth Examiner | | | | | BLVD [place], [place] | | | | | | [address] | | | | | | [phone] | | | +--------+ + + + [...]
--- OUTSIDE RECORDS SUMMARY | ~2019-07-31 | XMS | Encounter Summary ---
Demographics + + + | Address | [address] | | | [place] [address] | + + + | Home Phone | | + + + | Preferred Language | Unknown | + + + | Marital Status | Single | + + + | Zoroastrian Affiliation | Unknown | + + + [...] [address] | | | | | [place] | | | | | [address] | | + + + + + Care Team Providers + +------+ + | Care Box Printing Machine Operator Name | Role | Phone [...] Care | | 2014 | Collaborati | [facility] | [facility] | | | | [facility] | [address], | GROUP [place] | | | | | [place] | [address] | | | | | [address] | [address] [place] | | | | | [phone] | [address] | | | | | | | [...]
--- OUTSIDE RECORDS SUMMARY | ~2019-07-31 | XMS | Encounter Summary ---
Demographics + + + | Address | [address] | | | [place] [address] | + + + | Home Phone | | + + + | Preferred Language | Unknown | + + + | Marital Status | Single | + + + | Anabaptist Affiliation | Unknown | + + + | Race | White | + + + | Ethnic Group | Not or | + + + Author + + + | Author | [facility] | + + + | Organization | [facility] | + + + | Address | Unknown | + + + | Phone | Unavailable | + + + Support + + + + + | Name | Relationship | Address | Phone | + + + + + | Lolis Rodriguez | SCOTTY | [address] | | | | | [place] | | | | | [address] | | + + + + + Care Team Providers + +------+ + | Care Retention Specialist Name | Role | Phone | [...] | | | postprocedur | LEGACY | [place] | | | | | al | MEDICAL | [address] | | | | | status(V45.8 | GROUP | [place], | | | | | 9) | [place] | [place], [place] | | | | | Procedures | [address] | [address] | | | | | [place] | [address] | Phone: | | | | | LABS | [address] | [phone] | | | | | | [place], [place] | Fax: | | | | | | [address] | [phone] | | | | | | Phone: | | | | | | | [phone] | | | | | | | Fax: | | | | | | | [phone] | | +--------+--------+ + + + + Encounter Details +--------+ + + + + | Date | Type | Department | Care Team | Description | +--------+ + + + + | 03/09/ | [facility] | [facility] | [place] Nurse | Central Line Care | | 2016 | l Support | [facility] [place] | [address] | ([facility]) | | | Staff | [address], | [address] [place], [place] | | | | | [place], [place] | [address] | | | | | [address] | [phone] | | | | | [phone] | | | | | | | Sree Jain Ma | | | | | | Schedule [place], | | | | | | [place] [address] | | +--------+ + + + + [...]
--- OUTSIDE RECORDS SUMMARY | ~2019-07-31 | XMS | Encounter Summary ---
Demographics + + + | Address | [address] | | | [place] [address] | + + + | Home Phone [...] [address]OX | | | | | [address] | | | | | [address] | | + + + + + Care Team Providers + +------+ + | Care Shot Bagger Name | Role | Phone | + [...] Care | | 2015 | Collaborati | [facility] | MD CLARISA CALLES | | | | ve Order | [address], | GROUP [place] [address] | | | | | [place], [place] | [address] | | | | | [address] | [address] [place], [place] | | | | | [phone] | [address] | | | | | | | [...]
--- OUTSIDE RECORDS SUMMARY | ~2019-07-31 | XMS | Encounter Summary ---
Demographics + + + | Address | [address] | | | [place] [address] | + + + | Home Phone [...] Author + + + | Author | [facility] | + + + | Organization | [facility] | + + + | Address | Unknown | + + + | Phone | Unavailable | + + + Support + + + + + | Name | Relationship | Address | Phone | + + + + + | Lolis Rodriguez | SC[address]TY | [address] | | | | | [place] | | | | | [address] | | + + + + + Care Team Providers + +------+ + | Care Audio Visual Facilities Engineer Name | Role | Phone | [...] [id number] | | | | | | [place], [place] | | | | | | [address] | | | | | | [phone] | | | +--------+ + + + [...] + + + + | [facility] | [address] | [place] [address] | | | PATHOLOGY | [address] [...] + + + + | [facility] | [address] | [place] [address] | | | PATHOLOGY | [address] [...] + + + + | [facility] | [address] | [place] [address] | | | PATHOLOGY | [address] [...] + + + + | [facility] | [address] | [place] [address] | | | PATHOLOGY | [address] [...] + + + + | [facility] | [address] | [place] [address] | | | PATHOLOGY | [address] [...] + + + + | [facility] | [address] | [place] [address] | | | PATHOLOGY | [address] [...] + + + + | [facility] | [address] | [place] [address] | | | PATHOLOGY | [address] [...] + + + + | [facility] | [address] | [place] [address] | | | PATHOLOGY | [address] | | | + + + + + documented in this encounter Visit Diagnoses Not on filedocumented in this encounter"
--- OUTSIDE RECORDS SUMMARY | ~2019-07-31 | XMS | Encounter Summary ---
Demographics + + + | Address | [address] | | | [place] [address] | + + + | Home Phone | | + + + | Preferred Language | Unknown | + + + | Marital Status | Single | + + + | Confucianism Affiliation | Unknown | + + + | Race | Unknown | + + + | Ethnic Group | Unknown | + + + Author + + + | Author | [facility] | | | and [place] | + + + | Organization | [facility] | | | and [...] Providers + +------+ + | Care General Sales Manager Name | Role | Phone | [...] | +--------+ + + + + | 05/01/ | Telephone | [facility] | Wendy Stoll, | Medication Question | | 2020 | | [place] [facility] [address] | RN | | | | | BLVD [place], [place] | | | | | | [address] | | | | | | [phone] | | | +--------+ + + + [...]
--- OUTSIDE RECORDS SUMMARY | ~2019-07-31 | XMS | Encounter Summary ---
Demographics + + + | Address | [address] | | | [place] [address] | + + + | Home Phone [...] [address] | | | | | [address], [place] | | | | | [address] | | + + + + + Care Team Providers + +------+ + | Care Round Corner Cutter Operator Name | Role | Phone | [...]
--- OUTSIDE RECORDS SUMMARY | ~2019-07-31 | XMS | Encounter Summary ---
Demographics + + + | Address | [address] | | | [place] [address] | + + + | Home Phone [...] + + + | Author | [facility] | + + + | Organization | [facility] | + + + | Address | Unknown | + + + | Phone | Unavailable | + + + Support + + + + + | Name | Relationship | Address | Phone | + + + + + | Lolis Rodriguez | SC[address]TY | [address] | | | | | [place] | | | | | [address] | | + + + + + Care Team Providers + +------+ + | Care Rehab Care Assistant Name | Role | Phone | [...] | | | | | [place], | | | | | | [place] [address] | | | +--------+ + + + [...] | 0 | 06/04/19 | | | [id number]-[id number]-b | needed. | | | 16 | [...]
--- OUTSIDE RECORDS SUMMARY | ~2019-07-31 | XMS | Encounter Summary ---
Demographics + + + | Address | [address] | | | [place] [address] | + + + | Home Phone [...] Author + + + | Author | [facility] | + + + | Organization | [facility] | + + + | Address | Unknown | + + + | Phone | Unavailable | + + + Support + + + + + | Name | Relationship | Address | Phone | + + + + + | Lolis Rodriguez | SCOTTY | [address] | | | | | [place] | | | | | [address] | | + + + + + Care Team Providers + +------+ + | Care Plant Electrician Name | Role | Phone | [...] | | 2013 | Encounter | [address] | | | | | | [place], | | | | | | [place] [address] | | | +--------+ + + + [...]
--- OUTSIDE RECORDS SUMMARY | ~2019-07-31 | XMS | Encounter Summary ---
Demographics + + + | Address | [address] | | | [place] [address] | + + + | Home Phone | | + + + | Preferred Language | Unknown | + + + | Marital Status | Single | + + + | Voodoo Affiliation | Unknown | + + + | Race | Unknown | + + + | Ethnic Group | Unknown | + + + Author + + + | Author | [facility] | | | and [place] | + + + | Organization | [facility] | | | [...] Team Providers + +------+ + | Care Ammonia Worker Name | Role | Phone | + +------+ + | Mahendra Merchant | PCP | | + +------+ + Reason for Visit + + + | Reason | Comments | + + + | Scheduling Issues | | + + + Encounter Details +--------+ + + + + | Date | Type | Department | Care Team | Description | +--------+ + + + + | 07/21/ | Telephone | [facility] | Armida Cummins, | Scheduling Issues | | 2020 | | [address] | Time Piece Repairer | | | | | [place], [place] | | | | | | [address] | | | | | | [phone] | | | +--------+ + + + [...]
--- OUTSIDE RECORDS SUMMARY | ~2019-07-31 | XMS | Encounter Summary ---
Demographics + + + | Address | [address] | | | [place] [address] | + + + | Home Phone [...] Team Providers + +------+ + | Care Bread Racker Name | Role | Phone | + +------+ + | Mahendra Merchant | PCP | | + +------+ + Reason for Visit + + + | Reason | Comments | + + + | Lab Results | | + + + Encounter Details +--------+ + + + + | Date | Type | Department | Care Team | Description | +--------+ + + + + | 07/26/ | Telephone | [facility] | Armida Cummins, | Lab Results | | 2019 | | [place] [address] | [address] | | | | | BLVD [place], [place] | | | | | | [address] | | | | | | [phone] | | | +--------+ + + + [...]
--- OUTSIDE RECORDS SUMMARY | ~2019-07-31 | XMS | Encounter Summary ---
Demographics + + + | Address | [address] | | | [place] [address] | + + + | Home Phone [...] Phone | + + +---------+ + | Rbeecca Hughes | ECON | Unknown | | + + +---------+ + Care Team Providers + +------+ + | Care Speech Writer Name | Role | Phone | + +------+ + | Mahendra Merchant | PCP | | + +------+ + Encounter Details +--------+ + + + + | Date | Type | Department | Care Team | Description | +--------+ + + + + | 05/09/ | Preadmit | [facility] | Dean Munroe, | Canceled (OTHER) | | 2020 | Visit | [facility] | MD [address] | | | | | CLINIC [address] | [place], [place] | | | | | BLVD [place], [place] | [address] | | | | | [address] | | | | | | [phone] | | | +--------+ + + + [...]
--- OUTSIDE RECORDS SUMMARY | ~2019-07-31 | XMS | Encounter Summary ---
Demographics + + + | Address | [address] | | | [place] [address] | + + + | Home Phone [...] [address] | | | | | [address] [place] | | | | | [address] | | + + + + + Care Team Providers + +------+ + | Care Preventive Medicine Physician Name | Role | Phone | + [...] | | | Oncology | Other | Mahnedra Forbes MD | Infusion | | | | | postprocedur | LEGACY | [place] | | | | | al | MEDICAL | [address] | | | | | status(V45.8 | GROUP | [place], | | | | | 9) | [place] | [place], [place] | | | | | Procedures | [address] | [address] | | | | | [place] | [address] | Phone: | | | | | LABS | [address] | [phone] | | | | | | [place], [place] | Fax: | | | | | | [address] | [phone] | | | | | | Phone: | | | | | | | [phone] | | | | | | | Fax: | | | | | | | [phone] | | +--------+--------+ + + + + Encounter Details +--------+ + + + + | Date | Type | Department | Care Team | Description | +--------+ + + + + | 09/12/ | [facility] | [facility] | [place] Nurse | [facility] Care | | 2013 | l Support | [facility] [place] | [address] | ([facility]) | | | Staff | [address], | [address] [place], [place] | | | | | [place], [place] | [address] | | | | | [address] | [phone] | | | | | [phone] | | | | | | | Sree Jain Ma | | | | | | Schedule [place], | | | | | | [place] [address] | | +--------+ + + + + [...]
--- OUTSIDE RECORDS SUMMARY | ~2019-07-31 | XMS | Encounter Summary ---
Demographics + + + | Address | [address] | | | [place] [address] | + + + | Home Phone [...] Team Providers + +------+ + | Care Bookstore Clerk Name | Role | Phone | [...] Cancel Surgery | | 2019 | | [place] [address] [facility] | Greenskeeper Laborer | | | | | [place], [place] | | | | | | [address] | | | | | | [phone] | | | +--------+ + + + [...]
--- OUTSIDE RECORDS SUMMARY | ~2019-07-31 | XMS | Encounter Summary ---
Demographics + + + | Address | [address] | | | [place] [address] | + + + | Home Phone [...] + + + | Author | [facility] | + + + | Organization | [facility] | + + + | Address | Unknown | + + + | Phone | Unavailable | + + + Support + + + + + | Name | Relationship | Address | Phone | + + + + + | Lolis Rodriguez | SCOTTY | [address] | | | | | [address] [place] | | | | | [address] | | + + + + + Care Team Providers + +------+ + | Care Counter Supply Worker Name | Role | Phone | [...] as of this encounter Progress Notes Interface, Refrigeration Person In - 09/20/2005 1:11 AM PDTCLINIC DATE: 02/08/2002 [facility] This is a conference/coordination of care visit consisting of 30 minutes of nfck-op-vikd time with the patient. CHIEF COMPLAINT: "I am having hard time staying awake." HISTORY OF PRESENT ILLNESS: The patient relates a history of chronic fatigue, decreased memory, and right upper quadrant pain. Her right upper quadrant pain has been evaluated in the past by Gastroenterology here at [facility]. Additionally, more recently, she has developed a leg injury that has resulted in low back pain and right leg pain. She is currently being treated by Dr. Roberts in [place] who has scheduled her for an MRI [...] and tobacco use since 1976. CURRENT MEDICATIONS: First Mesa 300 mg 5 times a day, Paxil [...] her records from Dr. Dougie Gaviria of [place] to be transferred here to [facility]. The patient will return to the clinic at the next available appointment for a complete physical examination. James Boss M.D., M.P.H. JANAY / HS [id number] / [id number] / [id number] / Tdocumented in this encounter Plan of Treatment Not on filedocumented as of this encounter Visit Diagnoses Not on filedocumented in this encounter
--- OUTSIDE RECORDS SUMMARY | ~2019-07-31 | XMS | Encounter Summary ---
Demographics + + + | Address | [address] | | | [place] [address] | + + + | Home Phone | | + + + | Preferred Language | Unknown | + + + | Marital Status | Single | + + + | Congregation Affiliation | Unknown | + + + | Race | Unknown | + + + | Ethnic Group | Unknown | + + + Author + + + | Author | [facility] | | | and [place] | + + + | Organization | [facility] | | | and [...] Team Providers + +------+ + | Care Operations Project Manager Name | Role | Phone [...] Pre-Op | | 2019 | | [place] [address] [place] [address] | Linen Room Houseperson | | | | | BLVD [place], [place] | | | | | | [address] | | | | | | [phone] | | | +--------+ + + + [...]
--- OUTSIDE RECORDS SUMMARY | ~2019-07-31 | XMS | Encounter Summary ---
Demographics + + + | Address | [address] | | | [place] [address] | + + + | Home Phone [...] Team Providers + +------+ + | Care Lawnmower Repair Mechanic Name | Role | Phone | [...] | +--------+ + + + + | 05/08/ | Telephone | [facility] | Dean Munroe, | Surgery Appointment | | 2020 | | [place] [address] | [address] | | | | | BLVD [place], [place] | [place], [place] | | | | | [address] | [address] | | | | | [phone] | | | +--------+ + + + [...]
--- OUTSIDE RECORDS SUMMARY | ~2019-07-31 | XMS | Encounter Summary ---
Demographics + + + | Address | [address] | | | [place] [address] | + + + | Home Phone [...] + + + | Author | [facility] | | | and [place] | + + + | Organization | [facility] | | [...] Team Providers + +------+ + | Care Bankman Name | Role | Phone | + +------+ + | Mahendra Merchant | PCP | | + +------+ + Reason for Visit +--------+ + | Reason | Comments | +--------+ + | Other | Covid 19 screening | +--------+ + Encounter Details +--------+ + + + + | Date | Type | Department | Care Team | Description | +--------+ + + + + | 07/25/ | Telephone | [facility] | Dean Munroe, | Other (Covid 19 | | 2020 | | [place] [address] | [address] | screening) | | | | BLVD [place], [place] | [place], [place] | | | | | [address] | [address] | | | | | [phone] | | | +--------+ + + + [...]
--- OUTSIDE RECORDS SUMMARY | ~2019-07-31 | XMS | Encounter Summary ---
Demographics + + + | Address | [address] | | | [place] [address] | + + + | Home Phone [...] + + + | Author | [facility] | | | and [place] | + + + | Organization | [facility] | | [...] Team Providers + +------+ + | Care Farmworker Poultry Name | Role | Phone | + [...] of left | [address] | [place], [place] | | | | | hip | [place], | [address] | | | | | Procedures | [place] [address] | Phone: | | | | | [facility] | Phone: | [phone] | | | | | | [phone] | Fax: | | | | | | Fax: | [phone] | | | | | | [phone] | | + + + + + [...] | Pain in | Sharron Zaheer, | [place] [address] | | | | | left hip | PA-C [address] | | | | | Other | [address] | [place], [place] | | | | | chronic pain | AVE | [address] | | | | | | [place], | Phone: | | | | | | [place] [address] | [phone] | | | | | | Phone: | Fax: | | | | | | [phone] | [phone] | | | | | | Fax: | | | | | | | [phone] | | + +--------+ + + + [...] osteoarthritis of | | | | BLVD [place], [place] | [place], [place] | left hip (Primary | | | | [address] | [address] | Dx) | | | | [phone] | | | +--------+---------+ + + + [...] different fr om the original. 07/26/2019 Email Address:[email or web address] Chief Complaint Chief Complaint Patient presents with [...] into the lungs., Disp: , Rfl: Aspirin Buf,EbRabp-OsGszn-SxL, 81 MG TABS, Take 81 mg by mouth., Disp: , Rfl: atorvaSTATin (LIPITOR) 80 MG tablet, , Disp: , Rfl: Qxncbrz-Avzmygfgk-Hvzhlca D 185-50-100 MG-MG-UNIT CAPS, Calcium Magnesium + [...] subsidence. The left hip has severe end-stage chfh-hq-chiq osteoarthritis with subchondral sclerosis and cysts on both the femor al and acetabular side. There is also marginal osteophyte formation Assessment and Plan ICD-10-CM ICD-9-CM 1. Primary osteoarthritis of left hip M16.12 715.15 Case Request - [place]/ENDO/ASC/OB: ARTHROPL ASTY HIP Amb[facility] 58-year-old female with severe end-stage [...] Primary | Ordered: 07/27/2019 | | to [facility] Physical | Referral | e | osteoarthritis [...]
--- OUTSIDE RECORDS SUMMARY | ~2019-07-31 | XMS | Encounter Summary ---
Demographics + + + | Address | [address] | | | [place] [address] | + + + | Home Phone [...] Team Providers + +------+ + | Care Compound Coating Machine Offbearer Name | Role | Phone | + [...] | | | | | primary | CONVEYOR LINE BAKERY WORKER [address] | [address] | | | | | osteoarthrit | [address] [place] | | | | | is of knee | [place], | [address] [place] | | | | | Bilateral | [address] | [address] Phone: | | | | | osteoarthrit | [place], | [phone] | | | | | is resulting | [place] [address] | Fax: | | | | | from hip | Phone: | [phone] | | | | | dysplasia | [phone] | | | | | | | Fax: | | | | | | | [phone] | | +--------+--------+ + + + + Encounter Details +--------+---------+ + + + | Date | Type | Department | Care Team | Description | +--------+---------+ + + + | 01/06/ | Office | [facility] | Rigo Muniz | Left knee pain, | | 2017 | Visit | ORTHOPEDIC SURGERY | [address] | unspecified | | | | [address] [facility] | [address] [place] | chronicity (Primary | | | | [place], [place] | [place] [address] | Dx); Left hip pain; | | | | [address] | [phone] | Primary | | | | [phone] | | osteoarthritis of | | | [...]
--- OUTSIDE RECORDS SUMMARY | ~2019-07-31 | XMS | Encounter Summary ---
Demographics + + + | Address | [address] | | | [place] [address] | + + + | Home Phone | | + + + | Preferred Language | Unknown | + + + | Marital Status | Single | + + + | Quaker Affiliation | Unknown | + + + | Race | Unknown | + + + | Ethnic Group | Unknown | + + + Author + + + | Author | [facility] | | | and [place] | + + + | Organization | [facility] | | | [...] Team Providers + +------+ + | Care Knowledge Management Advisor Name | Role | Phone | + [...] | | [address] [place] | [place] [address] | | | | | [place] [address] | | | | | | [phone] | | | +--------+ + + + [...]
--- OUTSIDE RECORDS SUMMARY | ~2019-07-31 | XMS | Encounter Summary ---
Demographics + + + | Address | [address] | | | [place] [address] | + + + | Home Phone | | + + + | Preferred Language | Unknown | + + + | Marital Status | Single | + + + | Tenriism Affiliation [...] [address] | | | | | [address] | | | | | [address] | | + + + + + Care Team Providers + +------+ + | Care Automatic Oven Operator Name | Role | Phone | [...] Clinic | | | | | | [facility] [address] | | | | | | [place], [place] | | | | | | [address] | | | | | | [phone] | | | +--------+ + + + [...] + + + | [facility] | [address] | [place] [address] | | | LABORATORY | | | [...] + + + | [facility] | [address] | [place] [address] | | | LABORATORY | | | [...] | + + + + + | [facility] | [address] | [place] [address] | | | LABORATORY | | | [...] by Jone | | | | | NATHAN, SERUM | [facility] | | | | | | Laboratories. | | | | + + + + + + + + | Specimen | + + | | + + + + + + + | Performing | Address | City/State/Zipcode | Phone Number | | Organization | | | | + + + + + | [facility] | [address] | [place] [address] | | | LABORATORY | | | [...] | [facility], | Test performed by [facility] | | | | | SERUM | [facility] | | | | | | Laboratories. | | | | + + + + + + + + | Specimen | + + | | + + + + + + + | Performing | Address | City/State/Zipcode | Phone Number | | Organization | | | | + + + + + | [facility] | [address] | [place] [address] | | | LABORATORY | | | [...] | + + + + + | [facility] | [address] [facility] | [place] [address] | | | PATHOLOGY | [address] | | | + + + + + | [facility] | [address] [facility] [facility] | [place] [address] | | | PATHOLOGY | [address] [...] | + + + + + | [facility] | [address] [facility] | [place] [address] | | | PATHOLOGY | [address] | | | + + + + + | [facility] | [address] | [place] [address] | | | PATHOLOGY | [address] [...] | [facility] | [address] | [place] [address] | | | PATHOLOGY | [address] | | | + + + + + | [facility] OF | [address] | [place] [address] | | | PATHOLOGY | [address] [...] Performed At | + + + | [id number] [place] Phoned | [facility] | | | DEPARTMENT OF | | | PATHOLOGY | + + + + + + + + | Performing | Address | City/State/Zipcode | Phone Number | | Organization | | | | + + + + + | [facility] | [address] | [place] [address] | | | PATHOLOGY | [address] | | | + + + + + | [facility] DE[facility]MENT OF | [address] | [place] [address] | | | PATHOLOGY | [address] [...] | + + + + + | [facility] | [address] | [place] [address] | | | PATHOLOGY | [address] | | | + + + + + | [facility] | [address] | [place] [address] | | | PATHOLOGY | [address] [...] | + + + + + | [facility] | [address] [facility] | [place] [address] | | | PATHOLOGY | [address] | | | + + + + + | [facility] | [address] [facility] | [place] [address] | | | PATHOLOGY | [address] | | | + + + + + LDL CHOLEST,MEASURED (02/08/2002 9:43 AM PST) + + + + + + | Component | Value | Ref Range | Performed | Pathologist | | | | | At | Signature | + + + + + + | LDL CHOLEST | Intrf sub | <130 mg/dL | [facility] | | | | | | DEPARTMENT [...] | + + + + + | [facility] | [address] | [place] [address] | | | PATHOLOGY | [address] | | | + + + + + | [facility] | [address] | [place] [address] | | | PATHOLOGY | [address] [...] | + + + + + | [facility] | [address] | [place] [address] | | | PATHOLOGY | [address] | | | + + + + + | [facility] | [facility] [address] | [place] [address] | | | PATHOLOGY | [address] [...] | + + + + + | [facility] | [address] [facility] | [place] [address] | | | PATHOLOGY | [address] | | | + + + + + | [facility] | [address] [facility] [facility] | [place] [address] | | | PATHOLOGY | [address] | | | + + + + + documented in this encounter Visit Diagnoses Not on filedocumented in this encounter"
--- OUTSIDE RECORDS SUMMARY | ~2019-07-31 | XMS | Encounter Summary ---
Demographics + + + | Address | [address] | | | [place] [address] | + + + | Home Phone | | + + + | Preferred Language | Unknown | + + + | Marital Status | Single | + + + | Druze Affiliation | Unknown | + + + | Race | White | + + + | Ethnic Group | Not or | + + + Author + + + | Author | [facility] | + + + | Organization | [facility] | + + + | Address | Unknown | + + + | Phone | Unavailable | + + + Support + + + + + | Name | Relationship | Address | Phone | + + + + + | Lolis Rodriguez | SCOTTY | [address] | | | | | [address] | | | | | [address] | | + + + + + Care Team Providers + +------+ + | Care Non Destructive Testing Engineer Name | Role | Phone | + +------+ + | Mahendra Cash MD | PCP | | + +------+ + Encounter Details +--------+ + + + + | Date | Type | Department | Care Team | Description | +--------+ + + + + | 12/08/ | Document-Sc | Health Information | Unknown . | | | 2014 | anned | Services [address] | | | | | | [address] | | | | | | Mailcode: [id number] | | | | | | [facility] | | | | | | [place], [place] | | | | | | [address] | | | | | | [phone] | | | +--------+ + + + [...]
--- OUTSIDE RECORDS SUMMARY | ~2019-07-31 | XMS | Encounter Summary ---
Demographics + + + | Address | [address] | | | [place] [address] | + + + | Home Phone [...] [address] | | | | | [address] [place] | | | | | [address] | | + + + + + Care Team Providers + +------+ + | Care Assembler Gold Frame Name | Role | Phone | + [...] | | | | | [place], | | | | | | [place] [address] | | | +--------+ + + + [...]
--- OUTSIDE RECORDS SUMMARY | ~2019-07-31 | XMS | Encounter Summary ---
Demographics + + + | Address | [address] | | | [place] [address] | + + + | Home Phone | | + + + | Preferred Language | Unknown | + + + | Marital Status | Single | + + + | Zoroastrian Affiliation | Unknown | + + + | Race | Unknown | + + + | Ethnic Group | Unknown | + + + Author + + + | Author | [facility] | | | and [place] | + + + | Organization | [facility] | | | [...] Team Providers + +------+ + | Care Cotton Weigher Operator Name | Role | Phone | + +------+ + | Gonzales Rivera NP | PCP | | + +------+ + Encounter Details +--------+ + + + + | Date | Type | Department | Care Team | Description | +--------+ + + + + | 01/06/ | Hospital | [facility] | Rigo Muniz | Pain in both knees, | | 2018 | Encounter | [facility] | [address] | unspecified | | | | [address] [place] | [address] | chronicity; | | | | [place], [place] | [place] [address] | Bilateral hip pain | | | | [address] | [phone] | | | | | [phone] | | | +--------+ + + + [...] 3 mLs into | | 0 | /10/12 | | | albuterol-ipratropiu | the lungs. | | | 16 | | | m 2.5-0.5 mg/3 mL | | | | | | | SOLN | | | | | | + + + +---------+ + + | Aspirin | Take 81 mg by mouth. | | 0 | 03/04/19 | | | Buf,MoYlca-BbFxxy-Yz | | | | 15 | | [...]
--- OUTSIDE RECORDS SUMMARY | ~2019-07-31 | XMS | Encounter Summary ---
Demographics + + + | Address | [address] | | | [place] [address] | + + + | Home Phone [...] + + + | Author | [facility] | | | and [place] | + + + | Organization | [facility] | | | [...] Team Providers + +------+ + | Care Egg Worker Name | Role | Phone | [...] + + | 02/20/ | Emergency | [facility] | Franck Dowd | Chronic left hip | | 2019 | | MEDICAL CENTER | MD [address] | pain (Primary Dx); | | | | EMERGENCY CENTER | [address] [place], [place] | Primary | | | | [address] [facility] | [address] | osteoarthritis of | | | | [place], [place] | [phone] | left hip; Smokers' | | | | [address] | | cough (HCC) | | | | [phone] | | | +--------+ + + + [...] + documented in this encounter Discharge Instructions Instructions Franck Dowd MD - 02/20/2019The ED is unable to provide or refill narco tic pain medication or other controlled substances for chronic pain problems. We are also un able to change your controlled substance prescriptions for chronic pain. Per the [facility] guidelines for the treatment of chronic pain, approved by the Dept of [facility] [employer] physicians, you should receive all of your pain medications through a single provider - either a primary care provider or specialist (such as a pain-co ntrol specialist). Per [facility] guidelines, emergency department interventions are very limited and we are not able to give injections for chronic pain problems, even in t setting of severe recent worsening. These guidelines [...] your pain condition we comply with the ALFA guidelines for your safety. To help facilitate your outpatient management of your pain we will send a noti fication of this visit to your primary care physician and/or your pain station air traffic control specialist. AttachmentsThe following attachments cannot be sent through Care Everywhere.Osteoarthritis, Living with (Jordanian)Osteoarthritis, What Is (Jordanian)documented in this encounter Medications at Time of Discharge + + + +---------+ + + | Medication | Sig | Dispensed | Refills | Start | End Date | | | | | | Date | | + + + +---------+ + + | albuterol 2.5 mg/3 | Inhale 2.5 mg into | | 0 | 06/06/20 | | | mL nebulizer | the lungs. | | | 16 | | | solution | | | | | | + + + +---------+ + + | | Inhale 3 mLs into | | 0 | 03/08/20 | | | albuterol-ipratropiu | the lungs. | | | 16 | | | m 2.5-0.5 mg/3 mL | | | | | | | SOLN | | | | | | + + + +---------+ + + | Aspirin | Take 81 mg by mouth. | | 0 | 03/04/19 | | | Buf,EiMsqp-NyQczb-Th | | | | 15 | | [...] HUMALOG KWIKPEN | | | 0 | 08/14/20 | | | 100 UNIT/ML | | [...] | | | | | | | .5CC/31G") 31G | | | | | | [...] | 0 | 12/15/19 | | | (ADVGIAMOTMIRANDA) 800 | | | | 19 | [...]
--- OUTSIDE RECORDS SUMMARY | ~2019-07-31 | XMS | Encounter Summary ---
Demographics + + + | Address | [address] | | | [place] [address] | + + + | Home Phone [...] [address] | | | | | [address] [place] | | | | | [address] | | + + + + + Care Team Providers + +------+ + | Care Production Foreman Name | Role | Phone | + +------+ + | No Pcp Per Patient | PCP | Unavailable | + +------+ + Encounter Details +--------+ + + + + | Date | Type | Department | Care Team | Description | +--------+ + + + + | 09/01/ | Abstract | [facility] | Mahendra Cash, | | | 2013 | | [facility] | MD [facility] | | | | | [address] | [place] [address] | | | | | [place] | [address] | | | | | [address] | [address] | | | | | [phone] | [address] | | | | | | | [...]
--- OUTSIDE RECORDS SUMMARY | ~2019-07-31 | XMS | Encounter Summary ---
Demographics + + + | Address | [address] | | | [place] [address] | + + + | Home Phone | | + + + | Preferred Language | Unknown | + + + | Marital Status | Single | + + + | Orthodoxy Affiliation | Unknown | + + + | Race | Unknown | + + + | Ethnic Group | Unknown | + + + Author + + + | Author | [facility] | | | and [place] | + + + | Organization | [facility] | | [...] Team Providers + +------+ + | Care Review Consultant Name | Role | Phone | [...] Service Request | | 2020 | | [address] | Donor Processor | | | | | [place], [place] | | | | | | [address] | | | | | | [phone] | | | +--------+ + + + [...]
--- OUTSIDE RECORDS SUMMARY | ~2019-07-31 | XMS | Encounter Summary ---
Demographics + + + | Address | [address] | | | [place] [address] | + + + | Home Phone | | + + + | Preferred Language | Unknown | + + + | Marital Status | Single | + + + | Anglican Affiliation [...] [address] | | | | | [address] | | | | | [address] | | + + + + + Care Team Providers + +------+ + | Care Edger Saw Operator Name | Role | Phone | [...] | | | 2013 | | [facility] | MD [address] [facility] | | | | | [address] | [place] [address] | | | | | [place] | [address] | | | | | [address] | [address] [place] | | | | | [phone] | [address] | | | | | | | [...]
--- OUTSIDE RECORDS SUMMARY | ~2019-07-31 | XMS | Encounter Summary ---
Demographics + + + | Address | [address] | | | [place] [address] | + + + | Home Phone [...] Author + + + | Author | [facility] | + + + | Organization | [facility] | + + + | Address | Unknown | + + + | Phone | Unavailable | + + + Support + + + + + | Name | Relationship | Address | Phone | + + + + + | Lolis Rodriguez | SCOTTY | [address] | | | | | [address] | | | | | [address] | | + + + + + Care Team Providers + +------+ + | Care Seed Cutter Name | Role | Phone | [...] [id number] | | | | | | [place], [place] | | | | | | [address] | | | | | | [phone] | | | +--------+ + + + [...] + + + + + | [facility] | [address] | [place] [address] | | | PATHOLOGY | [address] [...] + + + + + | [facility] | [address] | [place] [address] | | | PATHOLOGY | [address] [...] + + + + + | [facility] | [address] | [place] [address] | | | PATHOLOGY | [address] [...] + + + + + | [facility] | [address] | [place] [address] | | | PATHOLOGY | [address] [...] + + + + + | [facility] | [address] | [place] [address] | | | PATHOLOGY | [address] [...] + + + + + | [facility] | [address] | [place] [address] | | | PATHOLOGY | [address] [...] + + + + + | [facility] | [address] | [place] [address] | | | PATHOLOGY | [address] [...] + + + + + | [facility] | [address] | [place] [address] | | | PATHOLOGY | [address] | | | + + + + + documented in this encounter Visit Diagnoses Not on filedocumented in this encounter"
--- OUTSIDE RECORDS SUMMARY | ~2019-07-31 | XMS | Encounter Summary ---
Demographics + + + | Address | [address] | | | [place] [address] | + + + | Home Phone [...] [address] | | | | | [address] | | | | | [address] | | + + + + + Care Team Providers + +------+ + | Care Belt Builder Name | Role | Phone | [...] | | | postprocedur | LEGACY | [place] | | | | | al | MEDICAL | [address] | | | | | status(V45.8 | GROUP | [address], | | | | | 9) | [place] | [place], [place] | | | | | Procedures | [address] | [address] | | | | | [place] | [address] | Phone: | | | | | LABS | [address] | [phone] | | | | | | [place], [place] | Fax: | | | | | | [address] | [phone] | | | | | | Phone: | | | | | | | [phone] | | | | | | | Fax: | | | | | | | [phone] | | +--------+--------+ + + + + Encounter Details +--------+ + + + + | Date | Type | Department | Care Team | Description | +--------+ + + + + | 09/12/ | [facility] | [facility] | [place] Nurse | Central Line Care | | 2013 | l Support | [facility] [place] | [address] | ([facility]) | | | Staff | [address], | [address] [place], [place] | | | | | [place], [place] | [address] | | | | | [address] | [phone] | | | | | [phone] | | | | | | | Sree [address] | | | | | | Schedule [place], | | | | | | [place] [address] | | +--------+ + + + + [...]
--- OUTSIDE RECORDS SUMMARY | ~2019-07-31 | XMS | Encounter Summary ---
Demographics + + + | Address | [address] | | | [place] [address] | + + + | Home Phone [...] Team Providers + +------+ + | Care Software Tools Build Engineer Name | Role | Phone | [...] 2019 | | [address] | [address] | | | | | [address] | [place], [place] | | | | | [address] | [address] | | | | | [phone] | | | +--------+ + + + [...]
--- OUTSIDE RECORDS SUMMARY | ~2019-07-31 | XMS | Encounter Summary ---
Demographics + + + | Address | [address] | | | [place] [address] | + + + | Home Phone [...] Team Providers + +------+ + | Care Data Entry Processor Name | Role | Phone | + [...] + + | 05/02/ | Telephone | [facility] | Stoll[address]endy, | Other | | 2020 | | [address] | RN | | | | | [address] [place], [place] | | | | | | [address] | | | | | | [phone] | | | +--------+ + + + [...]
--- OUTSIDE RECORDS SUMMARY | ~2019-07-31 | XMS | Encounter Summary ---
Demographics + + + | Address | [address] | | | [place] [address] | + + + | Home Phone [...] Team Providers + +------+ + | Care Inside Sales Account Manager Name | Role | Phone | [...] | Other | | 2020 | | [place] [address] | RN | | | | | BLVD [place], [place] | | | | | | [address] | | | | | | [phone] | | | +--------+ + + + [...]
--- OUTSIDE RECORDS SUMMARY | ~2019-07-31 | XMS | Clinical Summary ---
Demographics + + + | Address | [address] | | | [place] [address] | + + + | Home Phone [...] + + | Author | [facility] | | | and [place] | + + + | Organization | [facility] | | [...] Team Providers + +------+ + | Care Willow Analyst Name | Role | Phone | [...] 0 | | | Activ | | Ckeyjqp-Zweaamzbw-Eb | D | | | | | [...] | 01/1 | | Activ | | Buf,NyMdue-McGwry-Rq | | | | 0/20 | | [...] + + + +---------+------+------+-------+ | ondansetron | Take 1 tablet by | 20 | 0 | 06/2 | / | Activ | | (ZOFRAN) 4 mg tablet | mouth every 8 hours | tablet | | 2/20 | 9/20 | e | | | as needed for Nausea | | | 20 | 20 | | | | for up to 7 days. | | | | | | + + + +---------+------+------+-------+ | ergocalciferol | Take 1 capsule by | 90 | 0 | 06/2 | 10/25 | Activ | | (VITAMIN D2) 50 mcg | mouth Daily for 90 | capsule | | 2/20 | 0/20 | e | | (2,000 units) | days. | | | 20 | 20 | | | capsule | | | | | | | + + + +---------+------+------+-------+ | acetaminophen | Take 2 tablets by | 180 | 0 | 06/0 | 07/0 | Activ | | (TYLENOL) 500 mg | mouth every 8 hours | tablet | | 3/20 | 3/20 | e | | tablet | for 30 days. | | | 20 | 20 | | + + + +---------+------+------+-------+ | | Take 1 tablet by | 60 | 0 | 06/0 | 07/0 | Activ | | sennosides-docusate | mouth 2 times daily | tablet | | 3/20 | 3/20 | e | | sodium (SENOKOT-S) | for 30 days. | | | 20 | 20 | | | 8.6-50 MG tablet | | | | | [...] | + + + +---------+------+------+-------+ | aspirin 325 MG EC | Take 1 tablet by | 42 | 0 | 06/2 | 08/0 | Activ | | tablet | mouth Daily for 42 | tablet | | 2/20 | 3/20 | e | | | days. For | | | 20 | 20 | | | | post-operative DVT | | | | | | | | prophylaxis | | | | | | + + + +---------+------+------+-------+ | atorvaSTATin | Take 40 mg by mouth. | | 0 | 03/0 | 06/0 | Disco | | (LIPITOR) 40 mg | | | | 8/20 | 2/20 | ntinu | | tablet | | | | 16 | 20 | ed | | | | | | | | (Korin | | | | | | | | ent | | | | | | | | Not | | | | | | | | Takin | | | | | | | | g) | + + + +---------+------+------+-------+ | baclofen | TK 1 T PO QAM AND 1 | | 5 | 09/2 | 06/0 | Disco | | (LIORESAL) 10 mg | T IN THE EVENING AND | | | 5/20 | 2/20 | ntinu | | tablet | 2 TS AT NIGHT | | | 18 | 20 | ed | | | NEEDED FOR MUSCLE | | | | | (Korin | | | SPASM/PAIN | | | | | ent | | | | | | | | Not | | | | | | | | Takin | | | | | | | | g) | + + + +---------+------+------+-------+ | glipiZIDE | TK 1 T PO BID | | 3 | 09/0 | 06/0 | Disco | | (GLUCOTROL) 5 mg | | | | 6/20 | 2/20 | ntinu | | tablet | | | | 18 | 20 | ed | | | | | | | | (Korin | | | | | | | | ent | | | | | | | | Not | | | | | | | | Takin | | | | | | | | g) | + + + +---------+------+------+-------+ | metFORMIN | TAKE 1 TABLET BY | | 0 | 08/3 | 06/0 | Disco | | (GLUCOPHAGE-XR) 500 | MOUTH TWICE DAILY | | | 1/20 | 2/20 | ntinu | | mg 24 hr tablet | | | | 16 | 20 | ed | | | | | | | | (Korin | | | | | | | | ent | | | | | | | | Not | | | | | | | | Takin | | | | | | | | g) | + + + +---------+------+------+-------+ | mometasone | 2 sprays by Nasal | | 0 | 03/0 | 06/0 | Disco | | (NASONEX) 50 | route. | | | 8/20 | 2/20 | ntinu | | mcg/nasal spray | | | | 16 | 20 | ed | | | | | | | | (Korin | | | | | | | | ent | | | | | | | | Not | | | | | | | | Takin | | | | | | | | g) | + + + +---------+------+------+-------+ | gabapentin | GRADUALLY INCREASE | | 5 | 12/0 | 06/0 | Disco | | (NEURONTIN) 300 mg | TO TAKING ONE C PO | | | 5/20 | 2/20 | ntinu | | capsule | 3 XD TOLERATED | | | 18 | 20 | ed | | | | | | | | (Korin | | | | | | | | ent | | | | | | | | Not | | | | | | | | Takin | | | | | | | | g) | + + + +---------+------+------+-------+ | benzonatate | Take 1 capsule by | 30 | 0 | 12/2 | 06/0 | Disco | | (TESSALON) 100 mg | mouth 3 times daily | capsule | | 9/20 | 2/20 | ntinu | | capsule | as needed for Cough. | | | 19 | 20 | ed | | | | | | | | (Korin | | | | | | | | ent | | | | | | | | Not | | | | | | | | Takin | | | | | | | | g) | + + + +---------+------+------+-------+ | LORazepam (ATIVAN) | | | 0 | 07/25 | 06/0 | Disco | | 0.5 mg tablet (ER | | | | 10/12 | 04/14 | ntinu | | Prepack) | | | | 19 | 20 | ed | | | | | | | | (Korin | | | | | | | | ent | | | | | | | | Not | | | | | | | | Takin | | | | | | | | g) | + + + +---------+------+------+-------+ | ergocalciferol | Take 1 capsule by | 90 | 0 | /2 | 06/0 | Disco | | (VITAMIN D2) 50 mcg | mouth Daily for 90 | capsule | | /20 | 2/20 | ntinu | | (2,000 units) | days. | | | 20 | 20 | ed | | capsule | | | | | | (Korin | | | | | | | | ent | | | | | | | | Not | | | | | | | | Takin | | | | | | | | g) | + + + +---------+------+------+-------+ | oxyCODONE | Take 1 tablet by | 10 | 0 | 03/2 | 06/0 | Disco | | (ROXICODONE) 5 mg | mouth every 6 hours | tablet | | 5/20 | 2/20 | ntinu | | tablet | as needed for Pain. | | | 20 | 20 | ed | | | | | | | | (Korin | | | | | | | | ent | | | | | | | | Not | | | | | | | | Takin | | | | | | | | g) | + + + +---------+------+------+-------+ Active Problems + + + | Problem | Noted Date | + + + | Primary osteoarthritis of left hip | 04/27/2019 | + + + + + | Overview: Added automatically from request for surgery | | [id number] | + + + + + | [...] + + + + | Overview: Overview: [id number] Assessment & Plan: Colonoscopy | | procedure [...] + + | Overview: Overview: | | MA x 5; has stent; last angioplasty May [...] + + | 07/26/ | Telephone | Orthopedic Surgery | Dean Munroe, | Results | | 2019 | | | MD | | +--------+ + + + + | 07/26/ | Telephone | Orthopedic Surgery | Armida Cummins, | Lab Results | | 2019 | | | Prospecting Driller | | +--------+ + + + + | 07/25/ | Office | Orthopedic Surgery | Dean Munroe, | Primary | | 2020 | Visit | | MD | osteoarthritis of | | | | | | left hip (Primary | | | | | | Dx) | +--------+ + + + + | 07/25/ | Telephone | Orthopedic Surgery | Dean Munroe, | Other (Covid 19 | | 2019 | | | MD | screening) | +--------+ + + + + | 07/21/ | Telephone | Orthopedic Surgery | Armida Cummins, | Scheduling Issues | | 2019 | | | Prospecting Driller | | +--------+ + + + + | 06/27/ | Telephone | Orthopedic Surgery | Dean Munroe, | Surgery Appointment | | 2019 | | | MD | | +--------+ + + + + | 05/16/ | Telephone | Orthopedic Surgery | Armida Cummins, | Pre-Op | | 2020 | | | Prospecting Driller | | +--------+ + + + + | 05/16/ | Telephone | Orthopedic Surgery | Armida Cummins, | Pre-Op | | 2020 | | | Prospecting Driller | | +--------+ + + + + | 05/09/ | Preadmit | Pre-Admission | Dean Munroe, | Cailin (OTHER) | | 2019 | Visit | Testing | MD | | +--------+ + + + + | 05/09/ | Telephone | Orthopedic Surgery | Armida Cummins, | Cancel Surgery | | 2019 | | | Prospecting Driller | | +--------+ + + + + | 05/09/ | Telephone | Orthopedic Surgery | Armida Cummins, | Cancel Surgery | | 2020 | | | Prospecting Driller | | +--------+ + + + + | 05/08/ | Telephone | Orthopedic Surgery | Dean Munroe, | Surgery Appointment | | 2019 | | | MD | | +--------+ + + + + | 05/03/ | Telephone | Orthopedic Surgery | Armida Cummins, | Medication Question | 2019 | | | Prospecting Driller | | +--------+ + + + + | 05/03/ | Telephone | Orthopedic Surgery | Armida Cummins, | Medication Question | | 2019 | | | Prospecting Driller | | +--------+ + + + + | 05/02/ | Telephone | Orthopedic Surgery | Dean Munroe, | | | 2019 | | | MD | | +--------+ + + + + | 05/02/ | Telephone | Orthopedic Surgery | Wendy Stoll, | Other | | 2020 | | | RN | | +--------+ + + + + | 05/01/ | Telephone | Orthopedic Surgery | Wendy Stoll, | Medication Question | | 2019 | | | RN | | +--------+ + + + + [...] + | Vaccine: Influenza | Completed | 10/22/2018, 10/30/2017, | | | | | 11/13/2016, Additional history | | | | | exists | | + + + + + | Vaccine: Zoster | Completed | 12/31/2018, 10/30/2017 | | + + + + + [...] +--------+ +---------+--------+ | MEDICARE | MEDICA | [id number] | 10/25/19 | [phone] | | Medica | | | RE | | 01-Pre | 5 | | re | | | PART A | | sent | | | | | | AND B | | | | | | + +--------+ +--------+ +---------+--------+ | MEDICARE | MEDICA | [id number] | 10/25/19 | [phone] | | Medica [...] | Self | [birth year] | [address] | | | al/Fam | | 1961 | [phone] | [address] [place], [place] | | | de | | | 9 (Home) | [address] | + +--------+ +--------+ + + | Laury Crockett | Person | Self | [birth year] | [address] | | | al/Fam | | 1961 | [phone] | [address] [place], [place] | | | de | | | 9 (Home) | [address] | + +--------+ +--------+ + + Advance Directives + + + + + | Type | Date Recorded | Patient | Explanation | | | | Certified Medication Technician | | + + + + + | Power of | | | | | Senior Wealth Advisor | | | | + + + + + | Advance | 04/29/2019 10:34 | | no | | Directive | AM | | | + + + + +
--- OUTSIDE RECORDS SUMMARY | ~2019-07-31 | XMS | Encounter Summary ---
Demographics + + + | Address | [address] | | | [place] [address] | + + + | Home Phone | | + + + | Preferred Language | Unknown | + + + | Marital Status | Single | + + + | Cheondoism Affiliation | Unknown | + + + | Race | Unknown | + + + | Ethnic Group | Unknown | + + + Author + + + | Author | [facility] | | | and [place] | + + + | Organization | [facility] | | [...] Providers + +------+ + | Care Farm Management Professor Name | Role | Phone | + +------+ + | Gonzales Rivera NP | PCP | | + +------+ + Reason for Visit + + + | Reason | Comments | + + + | Follow-up | right hip/right knee pain | + + + Encounter Details +--------+---------+ + + + | Date | Type | Department | Care Team | Description | +--------+---------+ + + + | 03/15/ | Office | [facility] | Rigo Muniz | Right hip pain | | 2019 | Visit | ORTHOPEDIC SURGERY | [address] | (Primary Dx); | | | | [address] [facility] | [facility] | Primary | | | | [place], [place] | [place] [address] | osteoarthritis of | | | | [address] | [phone] | right knee; Primary | | | | [phone] | | osteoarthritis of | | | | | | left knee; Chronic | | | | | | pain of both knees; | | | | | | Greater trochanteric | | | | | | [...] | 83.9 kg (185 lb) | 03/15/2018 3:10 PM | | | | | PST | | + + + + + | Height | 157.5 cm (5' 2") | 03/15/2018 3:10 PM | | | | | PST | | + + + + + | Body Mass Index | 33.84 | 03/15/2018 3:10 PM | | | | | PST | | + + + + + documented in this encounter Progress Notes Rigo Muniz PA-C - 03/15/2018 3:30 PM PSTFormatting of this note might be differe nt from the original. Name:Laury Crockett Todays Date: 03/16/2018 Age: 57 y.o. PCP: Gonzales Rivera NP Chief Complaint Patient presents with Follow-up right hip/right knee pain SUBJECTIVE: Patient returns today for follow-up of bilateral hip and bilateral knee pain. I saw her pr eviously in December and provided her with left greater trochanteric versus injection and a left knee injection. She should that she got about 1 month of pain relief. Weight to have a discussion about treatment options for the right hip and right knee pain. Consideration t o injection therapy. Notes that she continues to have prominent pain throughout her body to include her back hips and knees. She currently is not on anything per oral for pain medica tion that his prescribed. Describes that she was previously on fentanyl patches. She has b monika referred to pain management but her insurance did not cover the medication that they wan carla to prescribe her. Current level of pain is rated at 7 OBJECTIVE: Patient presents in a wheelchair today. She was easily able to get out of the wheelchair u beatriz her own accord and stand abruptly and get onto exam table. Notes clear suggestion of gu arding or signs of discomfort upon doing this. Painful and palpation today over the right g reater trochanter. Skin is warm and dry at the right hip. There is no erythema, induration , ecchymosis or signs of infection. Imaging/Studies: No studies to review at this time. Vitals: 03/15/18 1510 Weight: 83.9 kg (185 lb) Height: 1.575 m (5' 2") ASSESSMENT/PLAN: 1. Right greater trochanteric bursitis 2. Primary osteoarthritis right knee with possibl e internal derangement A. we will defer injecting both locations today. When when I injected both her left knee and her left hip at her previous visit her glucose levels increased in to the 600s for a few days. Recommended just a singular course of injection therapy today if she wishes to proce ed. She does wish to receive injection therapy today for the right greater trochanteric bur sitis. Ring consent was obtained. Patient placed in a left lateral decubitus position. Area of maximal tenderness identified and marked. Skin prepped with Betadine of all. Anes thetized the skin with a 2:1 ratio of lidocaine to ropivacaine for a total of 6 MLS. 9 mg o f betamethasone with 2 ML's of lidocaine and 2 amounts of ropivacaine were then placed about 2-3 mm off the left greater trochanter. Discussed this case in that length. She was hopin g to receive some sort of pain medication today that his oral. Discussed that we do not pre scribe pain medication unless patient is a surgical candidate's and proceed with surgery. R ecommended that she follow-up with her primary care provider [place] most likely she will requi re pain management. Consideration was given to Alvinodorothy but I do not have kidney function test s and she does have a history of heart disease. Recommended that she refrain from taking th is medication secondary to comorbidities and health status. Currently the most problematic area is a left knee. She does have mild to moderate arthrosis the left knee but I have a hi gh glucose vision that she also has internal derangement consisting of meniscal pathology. Patient had a stent placed in 2002 and she believe she was told that it was not compatible with MRI. Recommend that she contact the surgeon who placed this released's office and to mey foley find out if her stent is compatible. She knows that she had the surgery in [facility]. Recommend that once she finds that she can contact our office and we'll likely proceed with MRI of the left knee for internal derangement. B. Patient is advised that if they have any questions, comments or concerns to contact our office. I spent over 25 minutes face to face with the patient, with over 50% spent in counseling an d/or coordination of care regarding chronic bilateral hip and knee pain, review of imaging s tudies with discussion and vomiting for treatment plan with subsequent injection therapy at the right greater trochanter. Electronically signed by: Rigo Muniz PA-C 03/16/2018 8:34 If patient received pain medication today the prescription monitoring program was reviewed and patient appears to be in compliance with his program. This note was dictated using the [employer] voice recognition system. Minor errors in grammar may have occurred. documented in t his encounter Plan of Treatment Not on filedocumented as of this encounter Visit Diagnoses + + | Diagnosis | + + | Right hip pain - Primary Pain in joint, pelvic region and thigh | + + | Primary osteoarthritis of right knee Primary localized osteoarthrosis, lower leg | + + | Primary osteoarthritis of left knee Primary localized osteoarthrosis, lower leg | + + | Chronic pain of both knees | + + | Greater trochanteric bursitis, unspecified laterality | + + documented in this encounter Administered Medications + +--------+ +------+------+ + | Medication Order | MAR | Action | Dose | Rate | Site | | | Action | Date | | | | + +--------+ +------+------+ + | betamethasone (CELESTONE | Given | 03/15/19 | 9 mg | | Hip-Righ | | SOLUSPAN) injection 9 mg 9 mg, | | 19 3:45 | | | t | | Other, ONCE, 03/15/18 at 1545, | | PM PST | | | | | For 1 dose, Shake well. Not for | | | | | | | IV use., | | | | | | + +--------+ +------+------+ + +---+---+ | | | +---+---+ documented in this encounter
--- OUTSIDE RECORDS SUMMARY | ~2019-07-31 | XMS | Encounter Summary ---
Demographics + + + | Address | [address] | | | [place] [address] | + + + | Home Phone [...] + + + | Author | [facility] | + + + | Organization | [facility] | + + + | Address | Unknown | + + + | Phone | Unavailable | + + + Support + + + + + | Name | Relationship | Address | Phone | + + + + + | Lolis Rodriguez | [address] [address] | | | | | [place] | | | | | [address] | | + + + + + Care Team Providers + +------+ + | Care Scarfer Name | Role | Phone | + [...] [place] | | | | | | [address] | | | +--------+ + + + [...]
--- OUTSIDE RECORDS SUMMARY | ~2019-07-31 | XMS | Encounter Summary ---
Demographics + + + | Address | [address] | | | [place] [address] | + + + | Home Phone | | + + + | Preferred Language | Unknown | + + + | Marital Status | Single | + + + | Cheondoism Affiliation | Unknown | + + + | Race | Unknown | + + + | Ethnic Group | Unknown | + + + Author + + + | Author | [facility] | | | and [place] | + + + | Organization | [facility] | | | [...] Team Providers + +------+ + | Care Carpenter Rough Name | Role | Phone | + +------+ + | Gonzales Rivera NP | PCP | | + +------+ + Encounter Details +--------+ + + + + | Date | Type | Department | Care Team | Description | +--------+ + + + + | 01/04/ | Orders Only | [facility] | Rigo Muniz | Pain in both knees, | | 2018 | | ORTHOPEDIC SURGERY | [address] | unspecified | | | | [address] [facility] | [address] | chronicity (Primary | | | | [place], [place] | [place] [address] | Dx) | | | | [address] | [phone] | | | | | [phone] | | | +--------+ + + + [...] on filedocumented as of this encounter Results XR Knee Left 1 - 2 Vw [...] Procedure Note | + + | Kalen, Efraín Results In - 01/06/2018 3:34 PM PST [...] | Pain in both knees, unspecified chronicity - Primary | + + documented in this encounter"
--- OUTSIDE RECORDS SUMMARY | ~2019-07-31 | XMS | Encounter Summary ---
Demographics + + + | Address | [address] | | | [place] [address] | + + + | Home Phone | | + + + | Preferred Language | Unknown | + + + | Marital Status | Single | + + + | Jainism Affiliation [...] Team Providers + +------+ + | Care Controller Repairer And Tester Name | Role | Phone | [...] + + | 05/05/ | Telephone | [facility] | Dean Munroe, | Surgery Appointment | | 2020 | | [place] [address] | [address] | | | | | [address]VD [place], [place] | [place], [place] | | | | | [address] | [address] | | | | | [phone] | | | +--------+ + + + [...]
--- OUTSIDE RECORDS SUMMARY | ~2019-07-31 | XMS | Encounter Summary ---
Demographics + + + | Address | [address] | | | [place] [address] | + + + | Home Phone | | + + + | Preferred Language | Unknown | + + + | Marital Status | Single | + + + | Adventist Affiliation | Unknown | + + + | Race | Unknown | + + + | Ethnic Group | Unknown | + + + Author + + + | Author | [facility] | | | and [place] | + + + | Organization | [facility] | | [...] Team Providers + +------+ + | Care Pug Machine Operator Name | Role | Phone | + +------+ + | Gonzales Rivera NP | PCP | | + +------+ + Reason for Visit + + + | Reason | Comments | + + + | Pre-op Exam | Gama VALLE [facility] on 05/17/2019 | + + + Evaluate & Treat (Urgent) + +--------+ + + + + | Status | Reason | Specialty | Diagnoses / | Referred By | Referred To | | | | | Procedures | Contact | Contact | + +--------+ + + + + | Authorized | | Orthopedic | Diagnoses | Edwgie, | [facility] | | | | Surgery | Pain in | Sharron Schwab, | [address] | | | | | left hip | [address] | [address] | | | | | Other | [address] | [place], [place] | | | | | chronic pain | AVE | [address] | | | | | | [place] | Phone: | | | | | | [place] [address] | [phone] | | | | | | Phone: | Fax: | | | | | | [phone] | [phone] | | | | | | Fax: | | | | | | | [phone] | | + +--------+ + + + + Encounter Details +--------+---------+ + + + | Date | Type | Department | Care Team | Description | +--------+---------+ + + + | 04/26/ | Office | [facility] | Dean Munroe, | Primary | | 2020 | Visit | [place] [address] | osteoarthritis of | | | | BLVD [place], [place] | [place], [place] | left hip (Primary | | | | [address] | [address] | Dx) | | | | [phone] | | | +--------+---------+ + + + [...] encounter Progress Notes Dean Munroe MD - 04/27/2019 9:00 AM PSTFormatting of [...] on 03/16/2019), Disp: 30 capsule, Rfl: 0 Xqkknrt-Fshutoaap-Indzied D 185-50-100 MG-MG-UNIT CAPS, Calcium Magnesium + [...] The left hip has severe e nd-stage rlum-yg-jssn osteoarthritis with subchondral sclerosis and cysts on [...] weeks. In addition to this the patie nt has a previous extensive history of MRSA [...] wished to proceed. Follow-up 2 weeks postop Dean Munroe MD documented in this e ncounter Plan of Treatment Not on filedocumented as of this encounter Visit Diagnoses + + | Diagnosis | + + | Primary osteoarthritis of left hip - Primary Primary localized osteoarthrosis, pelvic | | region and thigh | + + documented in this encounter
--- OUTSIDE RECORDS SUMMARY | ~2019-07-31 | XMS | Encounter Summary ---
Demographics + + + | Address | [address] | | | [place] [address] | + + + | Home Phone [...] [address] | | | | | [address] | | | | | [address] | | + + + + + Care Team Providers + +------+ + | Care Baby Attendant Name | Role | Phone | + +------+ + | Mahendra Cash MD | PCP | | + +------+ + Encounter Details +--------+ + + + + | Date | Type | Department | Care Team | Description | +--------+ + + + + | 12/08/ | Document-Sc | Health Information | Unknown . | | | 2014 | anned | Services [address] | | | | | [address] | | | | | | Mailcode: [id number] | | | | | | [facility] | | | | | | [place], [place] | | | | | | [address] | | | | | | [phone] | | | +--------+ + + + [...]
--- OUTSIDE RECORDS SUMMARY | ~2019-07-31 | XMS | Encounter Summary ---
Demographics + + + | Address | [address] | | | [place] [address] | + + + | Home Phone | | + + + | Preferred Language | Unknown | + + + | Marital Status | Single | + + + | Druze Affiliation | Unknown | + + + | Race | Unknown | + + + | Ethnic Group | Unknown | + + + Author + + + | Author | [facility] | | | and [place] | + + + | Organization | [facility] | | [...] Team Providers + +------+ + | Care English As A Second Language Instructor Name | Role | Phone | [...] Lab Results | | 2019 | | [place] [address] | Segment Producer | | | | | BLVD [place], [place] | | | | | | [address] | | | | | | [phone] | | | +--------+ + + + [...]
--- OUTSIDE RECORDS SUMMARY | ~2019-07-31 | XMS | Encounter Summary ---
Demographics + + + | Address | [address] | | | [place] [address] | + + + | Home Phone [...] [address] | | | | | [address] | | | | | [address] | | + + + + + Care Team Providers + +------+ + | Care Purchasing Buyer Name | Role | Phone | + [...] as of this encounter Progress Notes Interface, Java Oracle Developer In - 08/24/2005 3:03 AM PDTCLINIC DATE: [...] in 6 weeks. James Boss M.D., M.P.[facility] / [id number] / [id number] / [id number] / Tdocumented in this encounter Plan of Treatment Not on filedocumented as of this encounter Visit Diagnoses Not on filedocumented in this encounter
--- OUTSIDE RECORDS SUMMARY | ~2019-07-31 | XMS | Encounter Summary ---
Demographics + + + | Address | [address] | | | [place] [address] | + + + | Home Phone [...] Team Providers + +------+ + | Care Java Programmer Name | Role | Phone | + +------+ + | Mahendra Merchant | PCP | | + +------+ + Reason for Visit +---------+ + | Reason | Comments | +---------+ + | Results | | +---------+ + Encounter Details +--------+ + + + + | Date | Type | Department | Care Team | Description | +--------+ + + + + | 07/26/ | Telephone | [facility] | Dean Munroe, | Results | | 2019 | | [address] [address] | [address] | | | | | BLVD [place], [place] | [place], [place] | | | | | [address] | [address] | | | | | [phone] | | | +--------+ + + + [...]
--- OUTSIDE RECORDS SUMMARY | ~2019-07-31 | XMS | Encounter Summary ---
Demographics + + + | Address | [address] | | | [place] [address] | + + + | Home Phone | | + + + | Preferred Language | Unknown | + + + | Marital Status | Single | + + + | Zoroastrianism Affiliation | Unknown | + + + | Race | Unknown | + + + | Ethnic Group | Unknown | + + + Author + + + | Author | [facility] | | | and [place] | + + + | Organization | [facility] | | | and [...] Team Providers + +------+ + | Care Computer Consultant Name | Role | Phone | + +------+ + | Gonzales Rivera NP | PCP | | + +------+ + Reason for Visit + + + | Reason | Comments | + + + | Pre-op Exam | Gama VALLE [facility] on 05/17/2019 | + + + Evaluate [...] | | Other | [address] | [place], [place] | | | | | chronic pain | AVE | [address] | | | | | | [place] | Phone: | | | | | | [place] [address] | [phone] | | | | | | Phone: | Fax: | | | | | | [phone] | [phone] | | | | | | Fax: | | | | | | | [phone] | | + +--------+ + + + + Encounter Details +--------+---------+ + + + | Date | Type | Department | Care Team | Description | +--------+---------+ + + + | 04/26/ | Office | [facility] | Dean Munroe, | Primary | | 2020 | Visit | [place] [address] | [address] | osteoarthritis of | | | | BLVD [place], [place] | [place], [place] | left hip (Primary | | | | [address] | [address] | Dx) | | | | [phone] | | | +--------+---------+ + + + [...] on 03/16/2019), Disp: 30 capsule, Rfl: 0 Boqdfvo-Emymjahtw-Deuqphd D 185-50-100 MG-MG-UNIT CAPS, Calcium Magnesium + [...] The left hip has severe e nd-stage qxzr-yl-xpzu osteoarthritis with subchondral sclerosis and cysts on [...]
--- OUTSIDE RECORDS SUMMARY | ~2019-07-31 | XMS | Encounter Summary ---
Demographics + + + | Address | [address] | | | [place] [address] | + + + | Home Phone [...] [address] | | | | | [address] | | | | | [address] | | + + + + + Care Team Providers + +------+ + | Care Loading Unit Tool Setter Name | Role | Phone | + [...] | | genital | [facility] | [address] | | | | | prolapse, | Hospital | [facility] | | | | | unspecified | [address] | [address] | | | | | Procedures | [address] | [place], [place] | | | | | [place] NEW | [address] | [address] | | | | | PATIENT | Demian, | Phone: | | | | | [place] | [place] [address] | [phone] | | | | | EST PATIENT | Phone: | Fax: | | | | | [place] | [phone] | [phone] | | | | | | Fax: | | | | | | | [phone] | | +--------+--------+ + + + + Encounter Details +--------+---------+ + + + | Date | Type | Department | Care Team | Description | +--------+---------+ + + + | 08/18/ | [facility] | Clair Kay MD | Pelvic pain (Primary | | 2017 | Visit | [facility] | [address] | Dx); Pain of right | | | | [address] | [address] | hip joint; Mixed | | | | [address] | [place], [place] | incontinence urge | | | | Pavilion, 7th floor | [address] | and stress | | | | [place], [place] | [phone] | (male)(female) | | | | [address] | | | | | | [phone] | | | +--------+---------+ + + + [...] 08/18/2016 3:15 PM Alexandru Schaeffer, It was agulia to meet you today. We discussed the followin. Pain - I do not think there is a surgical fix to your pain at this time. I would like yo u to start with physical therapy for your hip as well as start gabapentin to decrease the ne rve sensitivities. 2. 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 3. Follow up - please make an appointment in 3 months after starting PT. Please sign up for MyChart so we can communicate about your gabapentin dosing. I have included below some information about pelvic muscle pain. Clair Brown MD Director Of Flight Operations Division of Urogynecology and Reconstructive Pelvic Surgery Department of Activities Assistant [facility] Levator Myalgia The muscles along the [...] activities or seeing a sp orts medicine/ housing specialist. & Chronic Pain Levator myalgia can be associated with chronic pain. In certain cases we will recommend a paint striping machine operator to help with your care. [...] on the patient intake questionnaire (scanned into [employer]) and with the patient. The summary is [...] be found in the scanned documents in [employer]. They have also been entered into rele [employer]ant [employer]on of the [employer] database. Past Medical History: Diagnosis Date Abdominal pain, right upper quadrant Asthma 1980 Bipolar disorder (HCC) 1998 Chronic fatigue COPD [...] allergies Spasm of muscle SVT (supraventricular tachycardia) ([facility]) 1980 Thoracic spondylosis without myelopathy Past Surgical [...] by mouth once daily., Disp: , Rfl: shqqdwtb-pridjsiti-wcrwdcicpopqib 3.5-10,000-1 mg/mL-unit/mL-% otic solution, Instill in e [...]
--- OUTSIDE RECORDS SUMMARY | ~2019-07-31 | XMS | Encounter Summary ---
Demographics + + + | Address | [address] | | | [place] [address] | + + + | Home Phone [...] BOX | | | | | [address] [place] | | | | | [address] | | + + + + + Care Team Providers + +------+ + | Care Sterilization Tech Name | Role | Phone | + [...] | | | | | Khadra Quan [place], | | | | | | [place] [address] | | | +--------+ + + + [...]
--- OUTSIDE RECORDS SUMMARY | ~2019-07-31 | XMS | Encounter Summary ---
Demographics + + + | Address | [address] | | | [place] [address] | + + + | Home Phone [...] [address] | | | | | [address], [place] | | | | | [address] | | + + + + + Care Team Providers + +------+ + | Care Communications Coordinator Name | Role | Phone | [...] as of this encounter Progress Notes Interface, Glove Factory Sewer In - 01/14/2006 5:[address] [address] or June 12, 1999 Marlon Freeman [facility] [address] [facility] [address] [place] [address] RE: LAURY MIDDLETON MR #: [id number] Dear Dr. Freeman: I had the pleasure [...] three cardiac arteriograms. MEDICATIONS 1. Prilosec 2. [place]. 3. Accolate. 4. Evista. 4. Promethazine. 5. [...] attempt to obtain her ultrasound reports from [facility]. I am still entertaining the possibility [...] Naun Carias M.D. HERI / LUIS EDUARDO [id number] / [id number] / [id number] / [id number] signed by Interface, Glove Factory Sewer In at 01/14/2006 5:11 AM PSTdocume nted in this encounter Plan of Treatment Not on filedocumented as of this encounter Visit Diagnoses Not on filedocumented in this encounter"
--- OUTSIDE RECORDS SUMMARY | ~2019-07-31 | XMS | Encounter Summary ---
Demographics + + + | Address | [address] | | | [place] [address] | + + + | Home Phone [...] [address] | | | | | [address] | | | | | [address] | | + + + + + Care Team Providers + +------+ + | Care Rib Sawyer Name | Role | Phone | [...] [place] | | | | | | [address] | | | +--------+ + + + [...]
--- OUTSIDE RECORDS SUMMARY | ~2019-07-31 | XMS | Encounter Summary ---
Demographics + + + | Address | [address] | | | [place] [address] | + + + | Home Phone [...] Providers + +------+ + | Care Tube Balancer Name | Role | Phone | + [...] + | 12/01/ | Telephone | [facility] | Rigo Muniz | Other | | 2018 | | ORTHOPEDIC SURGERY | [address] | | | | | [address] | [address] | | | | | [place], [place] | [place] [address] | | | | | [address] | [phone] | | | | | [phone] | | | +--------+ + + + [...]
--- OUTSIDE RECORDS SUMMARY | ~2019-07-31 | XMS | Encounter Summary ---
Demographics + + + | Address | [address] | | | [place] [address] | + + + | Home Phone | | + + + | Preferred Language | Unknown | + + + | Marital Status | Single | + + + | Yazdanism Affiliation | Unknown | + + + [...] [address]OX | | | | | [address] | | | | | [address] | | + + + + + Care Team Providers + +------+ + | Care Wellness Spa Manager Name | Role | Phone | [...] Clinic | | | | | | [facility] [address] | | | | | | [place], [place] | | | | | | [address] | | | | | | [phone] | | | +--------+ + + + [...] + + + | [facility] | [address] | [place] [address] | | | LABORATORY | | | [...] + + + | [facility] | [address] | [place] [address] | | | LABORATORY | | | [...] | + + + + + | [facility] | [address] | [place] [address] | | | LABORATORY | | | [...] | | | | NATHAN, SERUM | [facility] | | | | | | Laboratories. | | | | + + + + + + + + | Specimen | + + | | + + + + + + + | Performing | Address | City/State/Zipcode | Phone Number | | Organization | | | | + + + + + | [facility] | [address] | [place] [address] | | | LABORATORY | | | [...] + + + | [facility] | [address] | [place] [address] | | | LABORATORY | | | [...] + + + + + | [facility] DEPARTMENT | [address] | [place] [address] | | | PATHOLOGY | [address] | | | + + + + + | [facility] | [address] | [place] [address] | | | PATHOLOGY | [address] [...] + + + + + | [facility] DEPARTMENT OF | [address] | [place] [address] | | | PATHOLOGY | [address] | | | + + + + + | [facility] DEPARTMENT OF | [address] | [place] [address] | | | PATHOLOGY | [address] [...] DEPARTMENT OF | [address] | [place] [address] | | | PATHOLOGY | [address] | | | + + + + + | [facility] DEPARTMENT OF | [address] | [place] [address] | | | PATHOLOGY | [address] [...] Performed At | + + + | [phone] [place] Phoned | [facility] | | | DEPARTMENT OF | | | PATHOLOGY | + + + + + + + + | Performing | Address | City/State/Zipcode | Phone Number | | Organization | | | | + + + + + | [facility] DEPARTMENT OF | [address] | [place] [address] | | | PATHOLOGY | [address] | | | + + + + + | [facility] DEPARTMENT OF | [address] | [place] [address] | | | PATHOLOGY | [address] [...] + + + + + | [facility] DEPARTMENT OF | [address] | [place] [address] | | | PATHOLOGY | [address] | | | + + + + + | [facility] DEPARTMENT OF | [address] | [place] [address] | | | PATHOLOGY | [address] [...] + + + + + | [facility] | [address] | [place] [address] | | | PATHOLOGY | [address] | | | + + + + + | [facility] | [address] | [place] [address] | | | PATHOLOGY | [address] | | | + + + + + LDL CHOLEST,MEASURED (02/08/2002 9:43 AM PST) + + + + + + | Component | Value | Ref Range | Performed | Pathologist | | | | | At | Signature | + + + + + + | LDL CHOLEST | Intrf sub | <130 mg/dL | [facility] | | | | | | DEPARTMENT [...] + + + + + | [facility] DEPARTMENT OF | [address] | [place] [address] | | | PATHOLOGY | [address] | | | + + + + + | [facility] DEPARTMENT OF | [address] | [place] [address] | | | PATHOLOGY | [address] [...] + + + + + | [facility] | [address] | [place] [address] | | | PATHOLOGY | [address] | | | + + + + + | [facility] | [facility] [address] | [place] [address] | | | PATHOLOGY | [address] | | | + + + [...] + + + + + | [facility] | [address] | [place] [address] | | | PATHOLOGY | [address] | | | + + + + + | [facility] | [address] | [place] [address] | | | PATHOLOGY | [address] | | | + + + + + documented in this encounter Visit Diagnoses Not on filedocumented in this encounter"
--- OUTSIDE RECORDS SUMMARY | ~2019-07-31 | XMS | Encounter Summary ---
Demographics + + + | Address | [address] | | | [place] [address] | + + + | Home Phone [...] Team Providers + +------+ + | Care Yarn Dyer Name | Role | Phone | + [...] Medication Question | | 2019 | | [place] [address] [place] [address] | Beater And Pulper Feeder | | | | | BLVD [place], [place] | | | | | | [address] | | | | | | [phone] | | | +--------+ + + + [...]
--- OUTSIDE RECORDS SUMMARY | ~2019-07-31 | XMS | Encounter Summary ---
Demographics + + + | Address | [address] | | | [place] [address] | + + + | Home Phone [...] [address]OX | | | | | [address] | | | | | [address] | | + + + + + Care Team Providers + +------+ + | Care Chief Payroll Clerk Name | Role | Phone | [...] | | genital | [facility] | [address] | | | | | prolapse, | Hospital | [facility] | | | | | unspecified | [address] | [address] | | | | | Procedures | [address] | [place], [place] | | | | | [place] | [address] | [address] | | | | | PATIENT | Demian, | Phone: | | | | | [place] | [place] [address] | [phone] | | | | | EST PATIENT | Phone: | Fax: | | | | | [place] | [phone] | [phone] | | | | | | Fax: | | | | | | | [phone] | | +--------+--------+ + + + + Encounter Details +--------+---------+ + + + | Date | Type | Department | Care Team | Description | +--------+---------+ + + + | 08/18/ | Office | [facility] | Clair Kay MD | Pelvic pain (Primary | | 2017 | Visit | [facility] | [address] | Dx); Pain of right | | | | [address] | [address] | hip joint; Mixed | | | | [address] | [place], [place] | incontinence urge | | | | Pavilion, 7th floor | [address] | and stress | | | | [place], [place] | [phone] | (male)(female) | | | | [address] | | | | | | [phone] | | | +--------+---------+ + + + [...] to decrease the ne rve sensitivities. 2. 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 3. Follow up - please make an appointment in 3 months after starting PT. Please sign up for MyChart so we can communicate about your gabapentin dosing. I have included below some information about pelvic muscle pain. Clair Brown MD Counselor [employer] Division of Urogynecology and Reconstructive Pelvic Surgery Department of Appliance Repairer [facility] Levator Myalgia The muscles along the [...] activities or seeing a sp orts medicine/ ear specialist. & Chronic Pain Levator myalgia can be associated with chronic pain. In certain cases we will recommend a paint supervisor to help with your care. documented in [...] on the patient intake questionnaire (scanned into [employer]) and with the patient. The summary is [...] be found in the scanned documents in [employer]. They have also been entered into [employer] of the [employer] database. Past Medical History: Diagnosis Date Abdominal [...] allergies Spasm of muscle SVT (supraventricular tachycardia) ([facility]) 1980 Thoracic spondylosis without myelopathy [...] by mouth once daily., Disp: , Rfl: aybmddmx-gmzgmhsuz-gpkacjlkfkhisc 3.5-10,000-1 mg/mL-unit/mL-% otic solution, Instill in e [...]
--- OUTSIDE RECORDS SUMMARY | ~2019-07-31 | XMS | Encounter Summary ---
Demographics + + + | Address | [address] | | | [place] [address] | + + + | Home Phone [...] + + + | Author | [facility] | | | and [place] | + + + | Organization | [facility] | | [...] Team Providers + +------+ + | Care Cathode Ray Tube Assembler Name | Role | Phone | [...] | Pain in | [address]ron Schw[address], | [address] | | | | | left hip | PA-C [address] | | | | | Other | [address] | [place], [place] | | | | | chronic pain | AVE | [address] | | | | | | [place], | Phone: | | | | | | [place] [address] | [phone] | | | | | | Phone: | Fax: | | | | | | [phone] | [phone] | | | | | | Fax: | | | | | | | [phone] | | + +--------+ + + + + Encounter Details +--------+---------+ + + + | Date | Type | Department | Care Team | Description | +--------+---------+ + + + | 03/16/ | Office | [facility] | Dean Munroe, | Primary | | 2020 | Visit | [place] [address] | osteoarthritis of | | | | BLVD [place], [place] | [place], [place] | left hip (Primary | | | | [address] | [address] | Dx); Left hip pain | | | | [phone] | | | +--------+---------+ + + + [...] on 03/16/2019), Disp: 30 capsule, Rfl: 0 Dvwejgu-Hbnemopqe-Abotnxy D 185-50-100 MG-MG-UNIT CAPS, Calcium Magnesium + [...] The left hip has severe e nd-stage jsys-oc-tnwk osteoarthritis with subchondral sclerosis and cysts on [...] REFERENCE | | | | performed at [facility];[address] | | LAB | | | | [place] | | [facility] | | | | [address];[place] [address] | | LABORATORY | | + + + + + + + + | Specimen | + + | Blood | + + + + + + + | Performing | Address | City/State/Zipcode | Phone Number | | Organization | | | | + + + + + | REFERENCE LAB | [address] | [place] | [phone] | | [facility] | [address] | [address] | | | LABORATORY | | | | + + + + + | REFERENCE LAB | [address] | [place] | | | [facility] | Bl[address] | [address] | | | LABORATORY | | | [...] [facility] | | | | Bl[address];[place] [address] | | LABORATORY | | + + + + + + + + | Specimen | + + | Blood | + + + + + + + | Performing | Address | City/State/Zipcode | Phone Number | | Organization | | | | + + + + + | REFERENCE LAB | [address] [facility] | [place] | [phone] | | [facility] | [address] | [address] | | | LABORATORY | | | | + + + + + | REFERENCE LAB | [address] | [place] | | | [facility] | Blvd[address] | [address] | | | LABORATORY | | | [...]
--- OUTSIDE RECORDS SUMMARY | ~2019-07-31 | XMS | Encounter Summary ---
Demographics + + + | Address | [address] | | | [place] [address] | + + + | Home Phone | | + + + | Preferred Language | Unknown | + + + | Marital Status | Single | + + + | Baptist Affiliation | Unknown | + + + | Race | Unknown | + + + | Ethnic Group | Unknown | + + + Author + + + | Author | [facility] | | | and [place] | + + + | Organization | [facility] | | | [...] Providers + +------+ + | Care Speech And Language Tutor Name | Role | Phone | + [...] Scheduling Issues | | 2020 | | [address] | Buckle Sewer Machine | | | | | [place], [place] | | | | | | [address] | | | | | | [phone] | | | +--------+ + + + [...]
--- OUTSIDE RECORDS SUMMARY | ~2019-07-31 | XMS | Encounter Summary ---
Demographics + + + | Address | [address] | | | [place] [address] | + + + | Home Phone | | + + + | Preferred Language | Unknown | + + + | Marital Status | Single | + + + | Taoist Affiliation | Unknown | + + + | Race | Unknown | + + + | Ethnic Group | Unknown | + + + Author + + + | Author | [facility] | | | and [place] | + + + | Organization | [facility] | | [...] Team Providers + +------+ + | Care Inter Com Installer Name | Role | Phone | [...] + + | 02/20/ | Emergency | [facility] | Franck Dowd | Chronic left hip | | 2019 | | MEDICAL CENTER | MD Raf [address] | pain (Primary Dx); | | | | EMERGENCY CENTER | [address] [place], [place] | Primary | | | | [address] [facility] | [address] | osteoarthritis of | | | | [place], [place] | [phone] | left hip; Smokers' | | | | [address] | | cough (HCC) | | | | [phone] | | | +--------+ + + + [...] substance prescriptions for chronic pain. Per the [facility] guidelines for the treatment of chronic pain, approved by the Dept of [facility] [employer] physicians, you should receive all of your pain medications through a single provider - either a primary care provider or specialist (such as a pain-co ntrol specialist). Per [facility] guidelines, emergency department interventions are very [...] your primary care physician and/or your pain senior project controls specialist. AttachmentsThe following attachments cannot be sent through Care Everywhere.Osteoarthritis, Living with (East [place]orese)Osteoarthritis, What Is ([place]se)documented in this encounter Medications at Time of [...] | 0 | 03/04/19 | | | Buf,CoHlax-PiLnmy-Vx | | | | 15 | | [...]
--- OUTSIDE RECORDS SUMMARY | ~2019-07-31 | XMS | Encounter Summary ---
Demographics + + + | Address | [address] | | | [place] [address] | + + + | Home Phone [...] BOX | | | | | [address] | | | | | [address] | | + + + + + Care Team Providers + +------+ + | Care Director Of Retail Operations Name | Role | Phone | [...] as of this encounter Progress Notes Interface, Data Reduction Technician In - 09/20/2005 1:11 AM PDTCLINIC DATE: 02/08/2002 [facility]IC This is a conference/coordination of care visit consisting of 30 minutes of szdi-ek-cyki time with the patient. CHIEF COMPLAINT: "I am having hard time staying awake." HISTORY OF PRESENT ILLNESS: The patient relates a history of chronic fatigue, decreased memory, and right upper quadrant pain. Her right upper quadrant pain has been evaluated in the past by Gastroenterology here at [facility]. Additionally, more recently, she has developed a leg injury that has resulted in low back pain and right leg pain. She is currently being treated by Dr. Roberts in [place] who has scheduled her for an MRI [...] and tobacco use since 1976. CURRENT MEDICATIONS: Gilliam 300 mg 5 times a day, Paxil [...] her records from Dr. Dougie Gaviria of [place] to be transferred here to [facility]. The patient will return to the clinic at the next available appointment for a complete physical examination. James Boss M.D., M.P.H. JANAY / HS [id number] / [id number] / [id number] / Tdocumented in this encounter Plan of Treatment Not on filedocumented as of this encounter Visit Diagnoses Not on filedocumented in this encounter
--- OUTSIDE RECORDS SUMMARY | ~2019-07-31 | XMS | Encounter Summary ---
Demographics + + + | Address | [address] | | | [place] [address] | + + + | Home Phone [...] Author | [facility] | + + + | Organization | [facility] | + + + | Address | Unknown | + + + | Phone | Unavailable | + + + Support + + + + + | Name | Relationship | Address | Phone | + + + + + | Lolis Rodriguez | [place]TY | [address] | | | | | [place] | | | | | [address] | | + + + + + Care Team Providers + +------+ + | Care Foot Miter Operator Name | Role | Phone | [...] Care | | 2015 | Collaborati | [facility] | MD CLARISA CALLES | | | | ve Order | [address], | [address] [place] [address] | | | | | [place], [place] | [address] | | | | | [address] | [address] [place], [place] | | | | | [phone] | [address] | | | | | | | [...]
--- OUTSIDE RECORDS SUMMARY | ~2019-07-31 | XMS | Encounter Summary ---
Demographics + + + | Address | [address] | | | [place] [address] | + + + | Home Phone | | + + + | Preferred Language | Unknown | + + + | Marital Status | Single | + + + | Baptism Affiliation | Unknown | + + + | Race | Unknown | + + + | Ethnic Group | Unknown | + + + Author + + + | Author | [facility] | | | and [place] | + + + | Organization | [facility] | | [...] Team Providers + +------+ + | Care Swimming Pool Plasterer Helper Name | Role | Phone | + +------+ + | Gonzales Rivera NP | PCP | | + +------+ + Encounter Details +--------+ + + + + | Date | Type | Department | Care Team | Description | +--------+ + + + + | 01/06/ | Hospital | [facility] | Rigo Muniz | Pain in both knees, | | 2018 | Encounter | [facility] | [address] | unspecified | | | | [address] [place] | [address] | chronicity; | | | | [place], [place] | [place] [address] | Bilateral hip pain | | | | [address] | [phone] | | | | | [phone] | | | +--------+ + + + [...] | 0 | 03/04/19 | | | Buf,BcJbjr-EpAgqv-Gr | | | | 15 | | [...]
--- OUTSIDE RECORDS SUMMARY | ~2019-07-31 | XMS | Encounter Summary ---
Demographics + + + | Address | [address] | | | [place] [address] | + + + | Home Phone | | + + + | Preferred Language | Unknown | + + + | Marital Status | Single | + + + | Zoroastrian Affiliation | Unknown | + + + | Race | Unknown | + + + | Ethnic Group | Unknown | + + + Author + + + | Author | [facility] | | | and [place] | + + + | Organization | [facility] | | | and [place] | + [...] Team Providers + +------+ + | Care Shook Machine Operator Name | Role | Phone [...] + | 07/26/ | Telephone | [facility] | Dean Munroe, | Results | | 2019 | | [address] | [address] | | | | | BLVD [place], [place] | [place], [place] | | | | | [address] | [address] | | | | | [phone] | | | +--------+ + + + [...]
--- OUTSIDE RECORDS SUMMARY | ~2019-07-31 | XMS | Encounter Summary ---
Demographics + + + | Address | [address] | | | [place] [address] | + + + | Home Phone | | + + + | Preferred Language | Unknown | + + + | Marital Status | Single | + + + | Scientology Affiliation | Unknown | + + + [...] [address] | | | | | [address] | | | | | [address] | | + + + + + Care Team Providers + +------+ + | Care Community Service Specialist Name | Role | Phone | [...] + + | 08/19/ | Refill | [facility] | Clair Kay MD | Refill Request | | 2017 | | [facility] | [address] | | | | | [address] | [facility] [address] | | | | | [address] | [place], [place] | | | | | [address], 7th floor | [address] | | | | | [place], [place] | [phone] | | | | | [address] | | | | | | [phone] | | | +--------+--------+ + + + [...]
--- OUTSIDE RECORDS SUMMARY | ~2019-07-31 | XMS | Encounter Summary ---
Demographics + + + | Address | [address] | | | [place] [address] | + + + | Home Phone | | + + + | Preferred Language | Unknown | + + + | Marital Status | Single | + + + | Faith Affiliation | Unknown | + + + | Race | Unknown | + + + | Ethnic Group | Unknown | + + + Author + + + | Author | [facility] | | | and [place] | + + + | Organization | [facility] | | [...] Providers + +------+ + | Care Wire Frame Lampshade Maker Name | Role | Phone | [...] + + | 05/08/ | Telephone | [facility] | Dean Munroe, | Surgery Appointment | | 2020 | | [address] | [address] | | | | | BLVD [place], [place] | [place], [place] | | | | | [address] | [address] | | | | | [phone] | | | +--------+ + + + [...]
--- OUTSIDE RECORDS SUMMARY | ~2019-07-31 | XMS | Encounter Summary ---
Demographics + + + | Address | [address] | | | [place] [address] | + + + | Home Phone [...] [address] | | | | | [place], [place] | | | | | [address] | | + + + + + Care Team Providers + +------+ + | Care Executive Search Consultant Name | Role | Phone [...] + + + | [facility] | [address] | [place] [address] | | | LABORATORY | | | [...] | + + + + + | [facility] | [address] | [place] [address] | | | LABORATORY | | | [...] + + + | [facility] | [address] | [place] [address] | | | LABORATORY | | | [...] + + + | [facility] | [address] | [place] [address] | | | LABORATORY | | | [...] | + + + + + | [facility] | [address] | [place] [address] | | | LABORATORY | | | [...] | + + + + + | [facility] | [address] | [place] [address] | | | LABORATORY | | | [...] + + + | [facility] | [address] | [place] [address] | | | LABORATORY | | | [...] + | [facility] | [address] | [place] [address] | | | PATHOLOGY | [address] | | | + + + + + | [facility] DEPARTMENT | [address] | [place] [address] | | | PATHOLOGY | [address] [...] (L)Comment: | 0.98 - 1.08 INR | [facility] | | | | PT INR Therapeutic [...] | + + + + + | [facility] DEPARTMENT OF | [address] | [place] [address] | | | PATHOLOGY | [address] | | | + + + + + | [facility] | [address] | [place] [address] | | | PATHOLOGY | [address] | | | + + + + + documented in this encounter Visit Diagnoses Not on filedocumented in this encounter"
--- OUTSIDE RECORDS SUMMARY | ~2019-07-31 | XMS | Encounter Summary ---
Demographics + + + | Address | [address] | | | [place] [address] | + + + | Home Phone [...] Providers + +------+ + | Care Supervisor Prepress Name | Role | Phone | + +------+ + | Mahendra Merchant | PCP | | + +------+ + Encounter Details +--------+ + + + + | Date | Type | Department | Care Team | Description | +--------+ + + + + | 05/09/ | Preadmit | [facility] | Dean Munroe, | Canceled (OTHER) | | 2020 | Visit | [facility] | MD [address] | | | | | CLINIC [address] | [place], [place] | | | | | [place], [place] | [address] | | | | | [address] | | | | | | [phone] | | | +--------+ + + + [...]
--- OUTSIDE RECORDS SUMMARY | ~2019-07-31 | XMS | Encounter Summary ---
Demographics + + + | Address | [address] | | | [place] [address] | + + + | Home Phone | | + + + | Preferred Language | Unknown | + + + | Marital Status | Single | + + + | Baptism Affiliation | Unknown | + + + | Race | Unknown | + + + | Ethnic Group | Unknown | + + + Author + + + | Author | [facility] | | | and [place] | + + + | Organization | [facility] | | [...] Providers + +------+ + | Care Director Energy Name | Role | Phone | + [...] | 12/01/ | Telephone | [facility] | Rigo Muniz | Other | | 2018 | | ORTHOPEDIC SURGERY | [address] | | | | | [address] | [address] | | | | | [place], [place] | [place] [address] | | | | | [address] | [phone] | | | | | [phone] | | | +--------+ + + + [...]
--- OUTSIDE RECORDS SUMMARY | ~2019-07-31 | XMS | Encounter Summary ---
Demographics + + + | Address | [address] | | | [place] [address] | + + + | Home Phone [...] [address]OX | | | | | [address] | | | | | [address] | | + + + + + Care Team Providers + +------+ + | Care Fbi Profiler Name | Role | Phone | + [...] Care | | 2014 | Collaborati | [facility] | [facility] | | | | [facility] | [address], | [address] | | | | | [place] | [address] | | | | | [address] | [address] [place] | | | | | [phone] | [address] | | | | | | | [...]
--- OUTSIDE RECORDS SUMMARY | ~2019-07-31 | XMS | Encounter Summary ---
Demographics + + + | Address | [address] | | | [place] [address] | + + + | Home Phone [...] + + + | Author | [facility] | | | and [place] | + + + | Organization | [facility] | | | and [...] Team Providers + +------+ + | Care Booking Clerk Name | Role | Phone | [...] | | [address] | [place], [place] | | | | | [address] | [address] | | | | | [phone] | | | +--------+ + + + [...]
--- OUTSIDE RECORDS SUMMARY | ~2019-07-31 | XMS | Clinical Summary ---
Demographics + + + | Address | [address] | | | [place] [address] | + + + | Home Phone [...] Team Providers + +------+ + | Care Travel Cota Name | Role | Phone | + [...] 0 | | | Activ | | [id number]-Ez | D | | | | | [...] | 01/1 | | Activ | | Buf,CnShwb-JuJurc-Oe | | | | 0/20 | | [...] automatically from request for surgery | | [id number] | + + + + + | [...] + + + + | Overview: Overview: [id number] Assessment & Plan: Colonoscopy | | procedure [...] + + | Overview: Overview: | | UT x 5; has stent; last angioplasty May [...] Results | | 2019 | | | Chief Revenue Officer | | +--------+ + + + + [...] Issues | | 2019 | | | Chief Revenue Officer | | +--------+ + + + + | 06/27/ | Telephone | Orthopedic Surgery | Dean Munroe, | Surgery Appointment | | 2019 | | | MD | | +--------+ + + + + | 05/16/ | Telephone | Orthopedic Surgery | Armida Cummins, | Pre-Op | | 2020 | | | Chief Revenue Officer | | +--------+ + + + + | 05/16/ | Telephone | Orthopedic Surgery | Armida Cummins, | Pre-Op | | 2020 | | | Chief Revenue Officer | | +--------+ + + + + | 05/09/ | Preadmit | Pre-Admission | Dean Munroe, | Cailin (OTHER) | | 2019 | Visit | Testing | MD | | +--------+ + + + + | 05/09/ | Telephone | Orthopedic Surgery | Armida Cummins, | Cancel Surgery | | 2019 | | | Chief Revenue Officer | | +--------+ + + + + | 05/09/ | Telephone | Orthopedic Surgery | Armida Cummins, | Cancel Surgery | | 2020 | | | Chief Revenue Officer | | +--------+ + + + + | 05/08/ | Telephone | Orthopedic Surgery | Dean Munroe, | Surgery Appointment | | 2019 | | | MD | | +--------+ + + + + | 05/03/ | Telephone | Orthopedic Surgery | Armida Cummins, | Medication Question | 2019 | | | Chief Revenue Officer | | +--------+ + + + + | 05/03/ | Telephone | Orthopedic Surgery | Armida Cummins, | Medication Question | | 2019 | | | Chief Revenue Officer | | +--------+ + + + + [...] +--------+ +---------+--------+ | MEDICARE | MEDICA | [id number] | 10/25/19 | [phone] | | Medica | | | RE | | 01-Pre | 5 | | re | | | PART A | | sent | | | | | | AND B | | | | | | + +--------+ +--------+ +---------+--------+ | MEDICARE | MEDICA | [id number] | 10/25/19 | [phone] | | Medica [...] de | | | 9 (Home) | [address] | + +--------+ +--------+ + + | Laury Crockett | Person | Self | [birth year] | [address] | | | al/Fam | | 1961 | [phone] | [address] [place], [place] | | | de | | | 9 (Home) | [address] | + +--------+ +--------+ + + Advance Directives + + + + + | Type | Date Recorded | Patient | Explanation | | | | Electronics Test Engineer | | + + + + + | Power of | | | | | Prosecuting Attorney | | | | + + + + + | Advance | 04/29/2019 10:34 | | no | | Directive | AM | | | + + + + +
--- OUTSIDE RECORDS SUMMARY | ~2019-07-31 | XMS | Encounter Summary ---
Demographics + + + | Address | [address] | | | [place] [address] | + + + | Home Phone [...] [address] | | | | | [address], [place] | | | | | [address] | | + + + + + Care Team Providers + +------+ + | Care Vocational Case Manager Name | Role | Phone | [...] + + + | [facility] | [address] | [place] [address] | | | LABORATORY | | | [...] | + + + + + | [facility] | [address] | [place] [address] | | | LABORATORY | | | [...] + + + | [facility] | [address] | [place] [address] | | | LABORATORY | | | [...] + + + | [facility] | [address] | [place] [address] | | | LABORATORY | | | [...] | + + + + + | [facility] | [address] | [place] [address] | | | LABORATORY | | | [...] | + + + + + | [facility] | [address] | [place] [address] | | | LABORATORY | | | [...] + + + | [facility] | [address] | [place] [address] | | | LABORATORY | | | [...] | + + + + + | [facility] | [address] | [place] [address] | | | PATHOLOGY | [address] | | | + + + + + | [facility] DEPARTMENT | [address] [address] | [place] [address] | | | PATHOLOGY | [address] [...] (L)Comment: | 0.98 - 1.08 INR | [facility] | | | | PT INR Therapeutic [...] DEPARTMENT OF | [address] | [place] [address] | | | PATHOLOGY | [address] | | | + + + + + | [facility] | [address] | [place] [address] | | | PATHOLOGY | [address] | | | + + + + + documented in this encounter Visit Diagnoses Not on filedocumented in this encounter"
--- OUTSIDE RECORDS SUMMARY | ~2019-07-31 | XMS | Encounter Summary ---
Demographics + + + | Address | [address] | | | [place] [address] | + + + | Home Phone [...] Team Providers + +------+ + | Care Final Finisher Name | Role | Phone | + [...] | Pre-Op | | 2019 | | [place] [address] [place] [address] | Infection Control Manager | | | | | BLVD [place], [place] | | | | | | [address] | | | | | | [phone] | | | +--------+ + + + [...]
--- OUTSIDE RECORDS SUMMARY | ~2019-07-31 | XMS | Encounter Summary ---
Demographics + + + | Address | [address] | | | [place] [address] | + + + | Home Phone [...] Team Providers + +------+ + | Care Back Maker Name | Role | Phone | [...] (Primary Dx) | | | | [address] | [address] | | | | | [place], [place] | [place] [address] | | | | | [address] | [phone] | | | | | [phone] | | | +--------+ + + + [...]
--- OUTSIDE RECORDS SUMMARY | ~2019-07-31 | XMS | Encounter Summary ---
Demographics + + + | Address | [address] | | | [place] [address] | + + + | Home Phone [...] Providers + +------+ + | Care Metal Cabinet Finisher Name | Role | Phone | [...] | | [address] [place] | [place] [address] | | | | | [place] [address] | | | | | | [phone] | | | +--------+ + + + [...]
--- OUTSIDE RECORDS SUMMARY | ~2019-07-31 | XMS | Clinical Summary ---
Demographics + + + | Address | [address] | | | [place] [address] | + + + | Home Phone [...] [place] | | | | | [address] | | + + + + + Care Team Providers + +------+ + | Care Evaporator Supervisor Name | Role | Phone | + +------+ + | James Horne MD | PCP | | + +------+ + Source Comments SHARON is fully live on both [facility] and [facility] In[facility] Allergies + + + + + + [...] | 04/1 | | Activ | | [id number]-rrpeixiyg-o | needed. | | | 1/20 | [...] | | | | | | | [address] | | + +--------+ +--------+ + +--------+ + +--------+ +--------+ + + | Guarantor Name | Accoun | Relation to | Date | Phone | Billing Address | | | t Type | Patient | of | | | | | | | | | | + +--------+ +--------+ + + | Laury Crockett | Person | Self | [birth year] | [address] | | | al/Fam | | 1961 | [phone] | [place] | | | de | | | 9 (Home) | [address] | + +--------+ +--------+ + +
--- OUTSIDE RECORDS SUMMARY | ~2019-07-31 | XMS | Encounter Summary ---
Demographics + + + | Address | [address] | | | [place] [address] | + + + | Home Phone [...] + + + | Author | [facility] | | | and [place] | + + + | Organization | [facility] | | | and [...] Providers + +------+ + | Care Non Clinical Advisor Name | Role | Phone | [...] Cancel Surgery | | 2019 | | [place] [address] [facility] | Forest Pathology Teacher | | | | | [place], [place] | | | | | | [address] | | | | | | [phone] | | | +--------+ + + + [...]
--- OUTSIDE RECORDS SUMMARY | ~2019-07-31 | XMS | Encounter Summary ---
Demographics + + + | Address | [address] | | | [place] [address] | + + + | Home Phone [...] [address]OX | | | | | [place] | | | | | [address] | | + + + + + Care Team Providers + +------+ + | Care Thermal Cutter Helper Name | Role | Phone | [...] | | | | | [address] [place], | | | | | | [place] [address] | | | +--------+ + + + [...]
--- OUTSIDE RECORDS SUMMARY | ~2019-07-31 | XMS | Encounter Summary ---
Demographics + + + | Address | [address] | | | [place] [address] | + + + | Home Phone | | + + + | Preferred Language | Unknown | + + + | Marital Status | Single | + + + | Restorationist Affiliation | Unknown | + + + | Race | Unknown | + + + | Ethnic Group | Unknown | + + + Author + + + | Author | [facility] | | | and [place] | + + + | Organization | [facility] | [...] Team Providers + +------+ + | Care Analysis Reporting Developer Name | Role | Phone | [...] | Office | [facility] | Rigo Muniz | Right hip pain | | 2019 | Visit | ORTHOPEDIC SURGERY | [address] | (Primary Dx); | | | | [address] [facility] | [facility] | Primary | | | | [place], [place] | [place] [address] | osteoarthritis of | | | | [address] | [phone] | right knee; Primary | | | | [phone] | | osteoarthritis of | | | [...] knows that she had the surgery in [facility]. Recommend that once she finds that she [...] program. This note was dictated using the [employer] voice recognition system. Minor errors in grammar [...]
--- OUTSIDE RECORDS SUMMARY | ~2019-07-31 | XMS | Encounter Summary ---
Demographics + + + | Address | [address] | | | [place] [address] | + + + | Home Phone | | + + + | Preferred Language | Unknown | + + + | Marital Status | Single | + + + | Jain Affiliation | Unknown | + + + [...] Team Providers + +------+ + | Care Cabana Attendant Name | Role | Phone | [...] Medication Question | | 2019 | | [place] [address] [place] [address] | Pupil Personnel Services Director | | | | | [address] [place], [place] | | | | | | [address] | | | | | | [phone] | | | +--------+ + + + [...]
--- OUTSIDE RECORDS SUMMARY | ~2019-07-31 | XMS | Encounter Summary ---
Demographics + + + | Address | [address] | | | [place] [address] | + + + | Home Phone | | + + + | Preferred Language | Unknown | + + + | Marital Status | Single | + + + | Anabaptism Affiliation | Unknown | + + + | Race | Unknown | + + + | Ethnic Group | Unknown | + + + Author + + + | Author | [facility] | | | and [place] | + + + | Organization | [facility] | [...] Team Providers + +------+ + | Care Drum Straightener Name | Role | Phone | + [...] + + | 05/01/ | Telephone | [facility] | Wendy Stoll, | Medication Question | | 2020 | | [address] | RN | | | | | [address] [place], [place] | | | | | | [address] | | | | | | [phone] | | | +--------+ + + + [...]
--- OUTSIDE RECORDS SUMMARY | ~2019-07-31 | XMS | Encounter Summary ---
Demographics + + + | Address | [address] | | | [place] [address] | + + + | Home Phone [...] | [facility] | | | and [place] | + + + | Organization | [facility] | | [...] Team Providers + +------+ + | Care Corrective Therapy Aide Name | Role | Phone | + [...] | screening) | | | | BLVD [place], [place] | [place], [place] | | | | | [address] | [address] | | | | | [phone] | | | +--------+ + + + [...]
--- OUTSIDE RECORDS SUMMARY | ~2019-07-31 | XMS | Encounter Summary ---
Demographics + + + | Address | [address] | | | [place] [address] | + + + | Home Phone [...] [address] | | | | | [place] | | | | | [address] | | + + + + + Care Team Providers + +------+ + | Care Retail Project Merchandiser Name | Role | Phone | + [...] + + | 08/19/ | Refill | [facility] | Clair Kay MD | Refill Request | | 2017 | | [facility] | [address] [facility] | | | | | [address] | [facility] [address] | | | | | [address] | [place], [place] | | | | | [address], 7th floor | [address] | | | | | [place], [place] | [phone] | | | | | [address] | | | | | | [phone] | | | +--------+--------+ + + + [...]
--- OUTSIDE RECORDS SUMMARY | ~2019-07-31 | XMS | Encounter Summary ---
Demographics + + + | Address | [address] | | | [place] [address] | + + + | Home Phone [...] Author | [facility] | | | and [place] | + + + | Organization | [facility] | | [...] Team Providers + +------+ + | Care Cement Handler Name | Role | Phone | + [...] | Pre-Op | | 2019 | | [facility] [address] [place] [address] | Sanitary Napkin Machine Tender | | | | | BLVD [place], [place] | | | | | | [address] | | | | | | [phone] | | | +--------+ + + + [...]
--- OUTSIDE RECORDS SUMMARY | ~2019-07-31 | XMS | Encounter Summary ---
Demographics + + + | Address | [address] | | | [place] [address] | + + + | Home Phone [...] + + + | Author | [facility] | | | and [place] | + + + | Organization | [facility] | | | [...] Team Providers + +------+ + | Care Grip Assembler Name | Role | Phone | [...] 2020 | | [address] | Account Review Specialist | | | | | [place], [place] | | | | | | [address] | | | | | | [phone] | | | +--------+ + + + [...] REFERENCE | | | | performed at [facility];[address] | | LAB | | | | [place] | | [address] | | | | [address];[place] [address] | | LABORATORY | | + + + + + + + + | Specimen | + + | Blood | + + + + + + + | Performing | Address | City/State/Zipcode | Phone Number | | Organization | | | | + + + + + | REFERENCE LAB | [facility] | [place] | [phone] | | [address] | [address] | [address] | | | LABORATORY | | | | + + + + + | REFERENCE LAB | [facility] | [place] | | | [address] | [address] | [address] | | | LABORATORY | | | [...] REFERENCE | | | | performed at [facility];[address] | | LAB | | | | [place] | | [address] | | | | [address];[place] [address] | | LABORATORY | | + + + + + + + + | Specimen | + + | Blood | + + + + + + + | Performing | Address | City/State/Zipcode | Phone Number | | Organization | | | | + + + + + | REFERENCE LAB | [address] [facility] | [place], [place] | [phone] | | [facility] | Blvd. | [address] | | | LABORATORY | | | | + + + + + | REFERENCE LAB | [address] [facility] | [place], [place] | | | [facility] | Blvd. | [address] | | | LABORATORY | | | | + + + + + documented in this encounter Visit Diagnoses + + | Diagnosis | + + | Left hip pain Pain in joint, pelvic region and thigh | + + documented in this encounter"
--- OUTSIDE RECORDS SUMMARY | ~2019-07-31 | XMS | Encounter Summary ---
Demographics + + + | Address | [address] | | | [place] [address] | + + + | Home Phone [...] [address] | | | | | [place] | | | | | [address] | | + + + + + Care Team Providers + +------+ + | Care Blow Down Operator Name | Role | Phone | [...] | | 2017 | | [facility] | [address] | | | | | [address] [facility] [address] | | | | | [address] | [place], [place] | | | | | Venus, [address] [place] [address] | [address] | | | | | [place], [place] | [phone] | | | | | [address] | | | | | | [phone] | | | +--------+ + + + [...]
--- OUTSIDE RECORDS SUMMARY | ~2019-07-31 | XMS | Encounter Summary ---
Demographics + + + | Address | [address] | | | [place] [address] | + + + | Home Phone [...] Team Providers + +------+ + | Care Operator Lights Name | Role | Phone | + [...] | | [address] [place] | [place] [address] | | | | | [place] [address] | | | | | | [phone] | | | +--------+ + + + [...]
--- OUTSIDE RECORDS SUMMARY | ~2019-07-31 | XMS | Encounter Summary ---
Demographics + + + | Address | [address] | | | [place] [address] | + + + | Home Phone [...] [address] | | | | | [address], [place] | | | | | [address] | | + + + + + Care Team Providers + +------+ + | Care Jack Strip Assembler Name | Role | Phone | [...] as of this encounter Progress Notes Interface, Machine Deburrer In - 01/14/2006 5:[address] [address] or June 12, 1999 Marlon Freeman D.O. [facility] [address] [place] [address] RE: LAURY MIDDLETON MR #: [id number] Dear Dr. Freeman: I had the pleasure [...] three cardiac arteriograms. MEDICATIONS 1. Prilosec 2. [place]. 3. Accolate. 4. Evista. 4. Promethazine. 5. [...] attempt to obtain her ultrasound reports from . I am still entertaining the possibility of [...] Naun Carias M.D. HERI / LUIS EDUARDO [id number] / [id number] / [id number] / [id number] signed by Interface, Machine Deburrer In at 01/14/2006 5:11 AM PSTdocume nted in this encounter Plan of Treatment Not on filedocumented as of this encounter Visit Diagnoses Not on filedocumented in this encounter"
--- OUTSIDE RECORDS SUMMARY | ~2019-07-31 | XMS | Encounter Summary ---
Demographics + + + | Address | [address] | | | [place] [address] | + + + | Home Phone [...] Providers + +------+ + | Care Retail Gift Card Merchandising Name | Role | Phone | + [...] [place] | | | | | [place], [place] | [place] [address] | | | | | [address] | [phone] | | | | | [phone] | | | +--------+ + + + [...]
--- OUTSIDE RECORDS SUMMARY | ~2019-07-31 | XMS | Encounter Summary ---
Demographics + + + | Address | [address] | | | [place] [address] | + + + | Home Phone | | + + + | Preferred Language | Unknown | + + + | Marital Status | Single | + + + | Taoism Affiliation | Unknown | + + + | Race | Unknown | + + + | Ethnic Group | Unknown | + + + Author + + + | Author | [facility] | | | and [place] | + + + | Organization | [facility] | | [...] Providers + +------+ + | Care Box Blank Machine Operator Name | Role | Phone [...] | unspecified | | | | [address] [facility] | [place] | chronicity (Primary | | | | [place], [place] | [place] [address] | Dx) | | | | [address] | [phone] | | | | | [phone] | | | +--------+ + + + [...]
--- OUTSIDE RECORDS SUMMARY | ~2019-07-31 | XMS | Encounter Summary ---
Demographics + + + | Address | [address] | | | [place] [address] | + + + | Home Phone | | + + + | Preferred Language | Unknown | + + + | Marital Status | Single | + + + | Sabianism Affiliation | Unknown | + + + | Race | Unknown | + + + | Ethnic Group | Unknown | + + + Author + + + | Author | [facility] | | | and [place] | + + + | Organization | [facility] | | | [...] Providers + +------+ + | Care Clinical Engineer Name | Role | Phone | [...] | | 2020 | | [address] | Transportation Specialist | | | | | [place], [place] | | | | | | [address] | | | | | | [phone] | | | +--------+ + + + [...] REFERENCE | | | | performed at [facility];[address] | | LAB | | | | [place] | | [address] | | | | Blvd;[place] [address] | | LABORATORY | | + + + + + + + + | Specimen | + + | Blood | + + + + + + + | Performing | Address | City/State/Zipcode | Phone Number | | Organization | | | | + + + + + | REFERENCE LAB | [facility] | [place] | [phone] | | [address] | [address] | [address] | | | LABORATORY | | | | + + + + + | REFERENCE LAB | [facility] | [place] | | | [facility] | [address]. | [address] | | | LABORATORY | | | [...] REFERENCE | | | | performed at [facility];[address] | | LAB | | | | [place] | | [facility] | | | | Bl[address];[place] [address] | | LABORATORY | | + + + + + + + + | Specimen | + + | Blood | + + + + + + + | Performing | Address | City/State/Zipcode | Phone Number | | Organization | | | | + + + + + | REFERENCE LAB | [address] [facility] | [place], [place] | [phone] | | [facility] | Blvd. | [address] | | | LABORATORY | | | | + + + + + | REFERENCE LAB | [address] [facility] | [place], [place] | | | [facility] | Blvd. | [address] | | | LABORATORY | | | | + + + + + documented in this encounter Visit Diagnoses + + | Diagnosis | + + | Left hip pain Pain in joint, pelvic region and thigh | + + documented in this encounter"
--- OUTSIDE RECORDS SUMMARY | 2019-07-31 15:08 | XMS ---
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 No recent Security Events currently on file CRITERIA MET - [place] [facility] [place] [facility] Internal [facility] Current PHONE: [phone] GONZALES CLAYTON Nurse Practitioner: 09/07/2017-Current PHONE: [phone] ROXY REESE [facility] 05/25/2019-Current PHONE: [phone] Guidelines [facility] Date: 07/12/2018 Care Coordination: Receiving mental health services with [facility].\T\nbsp; Please contact [facility] with mental health concerns.\T\nbsp; [place]rem[facility]: [phone]\T\ nbsp; Alexandru: [phone]. Care History Medical/Surgical 05/25/2019 [facility] - PATIENT HAS A REFERRAL TO A VEHICLE AND EQUIPMENT CLEANER IN [place], [place]- DR BRAYAN BOLANOS- [phone]. 03/16/2019 [facility] Left voicemail to have patient schedule follow up visit with Gonzales Clayton 09/27/2018 [facility] - DUE TO PATIENT RECENT FALL- [facility] CONTACTED PCP OFFICE REQUESTED AN ED FOLLOW UP VISIT ON 09/27/18. Social 03/18/2016 [facility] ENCOURAGE PATIENT TO USE PCP OR WALK-IN CLINIC FOR NON-EMERGENT PROBLEMS. SHE CAN CALL AMBULATORY CARE FOR HELP OR QUESTIONS. [phone]. E.D. VISIT COUNT (12 MO.) [address] TOTAL 8 NOTE: Visits indicate total known visits. ED/UCC VISIT TRACKING (12 MO.) 07/31/2019 15:05 [facility] [place] TYPE: Emergency COMPLAINT: - LOW BLOOD SUGAR 05/24/2019 16:01 [facility] [place] TYPE: Emergency COMPLAINT: - R SIDE RIB INJURY DIAGNOSES: - Fall on same level, unspecified, initial encounter - Hypothyroidism, unspecified - Gastro-esophageal reflux disease without esophagitis - Pleurodynia - Personal history of nicotine dependence - Multiple fractures of ribs, right side, initial encounter for - Other meterman (current) 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 - Type 2 diabetes mellitus without complications - Chronic obstructive pulmonary disease, unspecified 03/15/2019 23:52 [facility] [place] TYPE: Emergency [...] migrainos - Unspecified asthma, uncomplicated - Other mcfp (current) 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 02/20/2019 01:37 [facility] TYPE: Emergency DIAGNOSES: - Pain in left hip - Pelvic Pain - Hip Pain - Other chronic pain - Unilateral primary osteoarthritis, left hip - Simple chronic bronchitis 12/06/2018 19:20 [facility] TYPE: Emergency COMPLAINT: - WEAKNESS DIAGNOSES: - Allergy status to narcotic agent status - Hypothyroidism, unspecified - Allergy status to other drugs, medicaments and biological sub - termination clerk (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 aspirin - Nicotine dependence, unspecified, uncomplicated - Type 2 diabetes mellitus with diabetic polyneuropathy - Other meterman (current) 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 - Toxic effect of [...] Allergy status to analgesic agent status - termination clerk (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 aspirin - Nicotine dependence, unspecified, uncomplicated - Type 2 diabetes mellitus with diabetic neuropathy, unspecifie - Other mcfp (current) 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 - Toxic effect of [...] hip - Low back pain - Other mcfp (current) 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 - Personal history of malignant neoplasm of bladder - Contusion of left hip, initial encounter - Presence of coronary angioplasty implant and graft - nursing home (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 aspirin - Hypothyroidism, unspecified - Fall from chair, initial encounter - Nicotine dependence, unspecified, uncomplicated - Contusion of right knee, initial encounter - Allergy status to analgesic agent status - Allergy status to other drugs, medicaments and biological sub - Type 2 diabetes mellitus without complications 08/03/2018 12:38 [facility] [place] TYPE: Emergency COMPLAINT: - CHEST PAIN/FALL DIAGNOSES: - Other mcfp (current) 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 - Personal history of malignant neoplasm of bladder - Allergy status to analgesic agent status - Allergy status to other drugs, medicaments and biological sub - nursing home (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 aspirin - Hypothyroidism, unspecified - Exposure to other specified factors, initial encounter - Gastro-esophageal reflux disease without esophagitis - Other chest pain - Nicotine dependence, unspecified, uncomplicated - Fracture of one rib, left side, initial encounter for closed - Bipolar disorder, unspecified - Type 2 diabetes mellitus without complications - Unspecified asthma, uncomplicated - Chest pain, unspecified INPATIENT VISIT TRACKING (12 MO.) No inpatient visits to display in this time frame [id number]
--- NOTE | 2019-07-31 19:24 | EKG ---
[facility] [address] [place], [place] [address] S[address] Sinus tachycardia Nonspecific ST abnormality Abnormal ECG When compared with ECG of 16-MAR-2019 00:10, No significant change was found Confirmed by JOSEPHINE RODRIGUEZ MD ([id number]) on 07/31/2019 7:24:34 PM Electronically Signed By: JOSEPHINE RODRIGUEZ MD 07/31/19 1924 PATIENT NAME: TIANNAGROVER Electrocardiogram DATE OF : 60 PHYSICIAN: JOSEPHINE RODRIGUEZ MD REPORT #: [id number] REPORT IS CONFIDENTIAL AND NOT TO BE RELEASED WITHOUT AUTHORIZATION
== END ==
LOC: ED 15:05
DX: E11.649 Type 2 diabetes mellitus with hypoglycemia without coma (principal); R07.9 Chest pain, unspecified; J44.9 Chronic obstructive pulmonary disease, unspecified; K21.9 Gastro-esophageal reflux disease without esophagitis; E03.9 Hypothyroidism, unspecified; F17.200 Nicotine dependence, unspecified, uncomplicated; Z88.6 Allergy status to analgesic agent; Z88.8 Allergy status to other drugs, medicaments and biological substances; Z79.899 Other long term (current) 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
CPT/HCPCS: 71045; 80053; 81001; 83690; 83735; 84484; 85025; 93005; 93010; 96360; 99285-25; J7030

== ENCOUNTER 2019-10-30 23:32 | Emergency (ER) | payer MEDICARE, MEDICAID ==
[~2019-10-30] VITALS: Ht 157.5 cm; Wt 83.6 kg
--- OUTSIDE RECORDS SUMMARY | ~2019-10-30 | XMS | Encounter Summary ---
Demographics + + + | Address | [address] | | | [place] [address] | + + + | Home Phone | | + + + | Preferred Language | Unknown | + + + | Marital Status | Single | + + + | Restorationist Affiliation | Unknown | + + + | Race | White | + + + | Ethnic Group | Not or | + + + Author + + + | Author | [facility] | + + + | Organization | [facility] | + + + | Address | Unknown | + + + | Phone | Unavailable | + + + Support + + + + + | Name | Relationship | Address | Phone | + + + + + | Lolis Rodriguez | [place] | [address] | | | | | [address] | | | | | [address] | | + + + + + Care Team Providers + +------+ + | Care Container Finishing Inspector Name | Role | Phone | + +------+ + | No Pcp Per Patient | PCP | Unavailable | + +------+ + Encounter Details +--------+ + + + + | Date | Type | Department | Care Team | Description | +--------+ + + + + | 09/01/ | Abstract | [facility] | Mahendra Cash, | | | 2013 | | [facility] | MD [facility] | | | | | [address] | [place] [id number] | | | | | [place] | [address] | | | | | [address] | [address] [place] | | | | | [phone] | [address] | | | | | | | | +--------+ + + + + Social History + +-------+ +--------+------+ | Tobacco Use | Types | Packs/Day | Years | Date | | | | | Used | | + +-------+ +--------+------+ | Never Assessed | | | | | + +-------+ +--------+------+ + + + | Sex Assigned at | Date Recorded | | | | + + + | Not on file | | + + + documented as of this encounter Plan of Treatment Not on filedocumented as of this encounter Visit Diagnoses Not on filedocumented in this encounter"
--- OUTSIDE RECORDS SUMMARY | ~2019-10-30 | XMS | Encounter Summary ---
Demographics + + + | Address | [address] | | | [place] [address] | + + + | Home Phone | | + + + | Preferred Language | Unknown | + + + | Marital Status | Single | + + + | Jehovah'S Witness Affiliation | Unknown | + + + | Race | White | + + + | Ethnic Group | Not or | + + + Author + + + | Author | [facility] | + + + | Organization | [facility] | + + + | Address | Unknown | + + + | Phone | Unavailable | + + + Support + + + + + | Name | Relationship | Address | Phone | + + + + + | Lolis Rodriguez | [place] | [address] | | | | | [place] | | | | | [address] | | + + + + + Care Team Providers + +------+ + | Care Bank Manager Name | Role | Phone | + +------+ + | No Pcp Per Patient | PCP | Unavailable | + +------+ + Reason for Visit + + + | Reason | Comments | + + + | [facility] | | + + + Encounter Details +--------+ + + + + | Date | Type | Department | Care Team | Description | +--------+ + + + + | 09/01/ | Outside | [facility] | Mahendra Cash, | Central Line [facility] | | 2014 | Collaborati | [facility] | [facility] | | | | [facility] | [address], | GROUP [place] | | | | | [place] | [address] | | | | | [address] | [address] [place] | | | | | [phone] | [address] | | | | | | | [...] + + documented as of this encounter Miscellaneous Notes Telephone Encounter - Raya Gonzáles RN - 09/01/2013 1:30 PM AYLA GONZÁLES RN converted the orders in this encounter from [facility] to [facility] Epic on 09/01/2013. documented in this encoun ter Plan of Treatment Not on filedocumented as of this encounter Visit Diagnoses Not on filedocumented in this encounter"
--- OUTSIDE RECORDS SUMMARY | ~2019-10-30 | XMS | Encounter Summary ---
Demographics + + + | Address | [address] | | | [place] [address] | + + + | Home Phone | | + + + | Preferred Language | Unknown | + + + | Marital Status | Single | + + + | Mandaeism Affiliation | Unknown | + + + | Race | White | + + + | Ethnic Group | Unknown | + + + Author + + + | Author | [facility] | | | and [place] | + + + | Organization | [facility] | | | and [...] Team Providers + +------+ + | Care Electric Vehicle Electrician Name | Role | Phone | + +------+ + | Gonzales Rivera NP | PCP | | + +------+ + Reason for Visit + + + | Reason | Comments | + + + | Hip Pain | left | + + + Evaluate & Treat (Urgent) + +--------+ + + + + | Status | Reason | Specialty | Diagnoses / | Referred By | Referred To | | | | | Procedures | Contact | Contact | + +--------+ + + + + | Authorized | | Orthopedic | Diagnoses | [place], | [facility] | | | | Surgery | Pain in | Sharron Schwab, | [address] | | | | | left hip | [address]C [address] | | | | | Other | [address] | [place], [place] | | | | | chronic pain | AVE | [address] | | | | | | [place], | Phone: | | | | | | [place] [address] | [phone] | | | | | | Phone: | Fax: | | | | | | [phone] | [phone] | | | | | | Fax: | | | | | | | [phone] | | + +--------+ + + + + Encounter Details +--------+---------+ + + + | Date | Type | Department | Care Team | Description | +--------+---------+ + + + | 03/16/ | Office | [facility] | Dean Munroe, | Primary | | 2020 | Visit | [place] [address] | [address] | osteoarthritis of | | | | BL[address] [place], [place] | [address] [address] [place], [place] | left hip (Primary | | | | [address] | [address] | Dx); Left hip pain | | | | [phone] | | | +--------+---------+ + + + [...] + + + | Blood Pressure | 128/72 | 03/16/2019 10:39 AM | | | | | PST | | + + + + + | Pulse | 89 | 03/16/2019 10:39 AM | | | | | PST | | + + + + + | Temperature | - | - | | + + + + + | Respiratory Rate | - | - | | + + + + + | Oxygen Saturation | 98% | 03/16/2019 10:39 AM | | | | | PST | | + + + + + | Inhaled Oxygen | - | - | | | Concentration | | | | + + + + + | Weight | - | - | | + + + + + | Height | 157.5 cm (5' 2") | 03/16/2019 10:39 AM | | | | | PST | | + + + + + | Body Mass Index | - | - | | + + + + + documented in this encounter Progress Notes Dean Munroe MD - 03/16/2019 10:30 AM PSTFormatting of this note might be different fr om the original. 03/16/2019 Chief Complaint Chief Complaint Patient presents with Hip Pain left HPI Laury Crockett is a 58 y.o. female who presents with a chief complaint of Chief Complaint Patient presents with Hip Pain left . The patient's symptoms have been ongoing for 3-4 years, patient has been using a wheel c hair for the past year due to pain & falls. Character Worsening. Patient is currently in PT and will do ok in the pool but not ready for use of machines. Patient has also tried inject ions for pain, states the last time she had an injection was about 2 weeks ago. Patient expe riences numbness, tingling and swelling on her lower back. Patient is a current everyday smoker smoking 4 cigarettes/cigars daily. Patient complains of groin pain and lateral hip pain. Patient has tried NSAIDs at a higher than safe quantity and duration. She feels that if she does not take them in this way that they do not help h er. Vital Signs Vitals: 03/16/19 1039 BP: 128/72 Pulse: 89 PainSc: 8 PainLoc: Hip Past Medical History: Diagnosis Date Ankylosing spondylitis [...] mLs into the lungs., Disp: , Rfl: atorvaSTATin (LIPITOR) 40 mg tablet, Take 40 mg by mouth., Disp: , Rfl: atorvaSTATin (LIPITOR) 80 MG tablet, , Disp: , Rfl: baclofen (LIORESAL) 10 mg tablet, TK 1 T PO QAM AND 1 T IN THE EVENING AND 2 TS AT [facility] HT NEEDED FOR MUSCLE SPASM/PAIN, Disp: , Rfl: 5 benzonatate (TESSALON) 100 mg capsule, Take 1 capsule by mouth 3 times daily as needed for Cough. (Patient not taking: Reported on 03/16/2019), Disp: 30 capsule, Rfl: 0 Cbflstd-Falbjrlzv-Dolngcy D 185-50-100 MG-MG-UNIT CAPS, Calcium Magnesium + D, Disp: , Rfl: COMBIGAN 0.2-0.5 % ophthalmic solution, , Disp: , Rfl: diazePAM (VALIUM) 10 MG tablet, , Disp: , Rfl: diclofenac (VOLTAREN) 1% GEL, , Disp: , Rfl: diclofenac (VOLTAREN) 1% GEL, APPLY 2 GRAM TOPICALLY AA BID, Disp: , Rfl: 3 diphenhydrAMINE (BENADRYL) 50 MG tablet, Take 50 mg by mouth nightly as needed for Itc mario., Disp: , Rfl: DUREZOL 0.05 % EMUL opthalmic soln, , Disp: , Rfl: fluticasone (FLONASE) 50 mcg/nasal spray, INSTILL 1 TO 2 SPRAYS IEN BID, Disp: , Rfl: 0 gabapentin (NEURONTIN) 300 mg capsule, GRADUALLY INCREASE TO TAKING ONE C PO 3 XD TOLERATED, Disp: , Rfl: 5 glipiZIDE (GLUCOTROL) 5 mg tablet, TK 1 T PO BID, Disp: , Rfl: 3 HUMALOG 100 UNIT/ML injection (vial), , Disp: , Rfl: 2 HUMALOG KWIKPEN 100 UNIT/ML injection (pen), , Disp: , Rfl: ibuprofen (ADVIL,MOTRIN) 800 MG tablet (ED prepack), , Disp: , Rfl: Insulin Syringe-Needle U-100 (INSULIN SYRINGE .3CC/30GX5/16") 30G X 5/16" 0.3 ML MISC, , Disp: , Rfl: 5 Insulin Syringe-Needle U-100 (INSULIN SYRINGE .5CC/31GX5/16") 31G X 5/16" 0.5 ML MISC, USE TO INJECT LANTUS QHS, Disp: , Rfl: 5 lamoTRIgine (LAMICTAL) 200 MG tablet, , Disp: , Rfl: LANTUS 100 UNIT/ML injection (vial), INJECT 10 UNITS UNDER THE SKIN QHS, Disp: , Rfl: 2 levothyroxine (SYNTHROID) 100 mcg tablet, TK 1 T PO QD, Disp: , Rfl: 1 LORazepam (ATIVAN) 0.5 mg tablet (ER Prepack), , Disp: , Rfl: metFORMIN (GLUCOPHAGE-XR) 500 mg 24 hr tablet, TAKE 1 TABLET BY MOUTH TWICE DAILY, Dis p: , Rfl: metoprolol succinate (TOPROL-XL) 25 mg 24 hr tablet, TK 1 T PO BID, Disp: , Rfl: 11 mometasone (NASONEX) 50 mcg/nasal spray, 2 sprays by Nasal route., Disp: , Rfl: Multiple Vitamin (MULTIVITAMIN) capsule, Take 1 capsule by mouth., Disp: , Rfl: naproxen (NAPROSYN) 500 mg tablet, Take 1 tablet by mouth every 12 hours. For 5 days, then Q 12 hours PRN pain (Patient not taking: Reported on 03/16/2019), Disp: 30 tablet, Rfl: 0 nitroglycerin (NITROSTAT) 0.4 mg SL tablet, Place [...] Constitutional: Negative for chills and fever. Respiratory: Positive for shortness of breath. Cardiovascular: Negative for chest pain, claudication and leg swelling. Genitourinary: Negative for dysuria. Musculoskeletal: Positive for [...] or subsidence. The left hip has severe e nd-stage wdyo-ma-ziti osteoarthritis with subchondral sclerosis and cysts on both the femora l and acetabular side. There is also marginal osteophyte formation Assessment and Plan ICD-10-CM ICD-9-CM 1. Primary osteoarthritis of left hip M16.12 715.15 2. Left hip pain M25.552 719.45 Sedimentation Rate C-Reactive Protein 58-year-old female with severe end-stage and severely symptomatic left hip osteoarthritis. Unfortunately this patient is not currently a good candidate for hip replacement surgery as she is a current everyday smoker. In addition to this the patient has a previous extensive history of MRSA infections. She reports that her right hip had an infection at some point prior to her arthroplasty but did not have any problems after this. I would like to order a n ESR and a CRP to make sure there are no active reasons to be concerned for infection. In addition I counseled the patient that she has to quit smoking for 6 weeks prior to having munoz rgery. I will follow-up with her in 6 weeks to check on her progress. We will select a eliasbet e for late April for surgery and if she has been able to meet all of these requirements and we will go ahead with left total hip arthroplasty. Return in about 6 weeks (around 04/27/2019). No notes on file Dean Munroe MD documented in this e ncounter Plan of Treatment Not on filedocumented as of this encounter Results C-Reactive Protein (04/05/2019 3:07 PM PST) + + + + + + | Component | Value | Ref Range | Performed | Pathologist | | | | | At | Signature | + + + + + + | CRP | <0.3Comment: Testing | <0.5 mg/dL | REFERENCE | | | | performed at [facility];[address] | | LAB | | | | [facility] | | [facility] | | | | [address];[place] [address] | | LABORATORY | | + + + + + + + + | Specimen | + + | Blood | + + + + + + + | Performing | Address | City/State/Zipcode | Phone Number | | Organization | | | | + + + + + | REFERENCE LAB | [address] [place] [address] | [place] | [phone] | | [facility] | [address] | [address] | | | LABORATORY | | | | + + + + + | REFERENCE LAB | [address] [place] [address] | [place] | | | [facility] | Blvd[address] | [address] | | | LABORATORY | | | | + + + + + Sedimentation Rate (04/05/2019 3:07 PM PST) + + + + + + | Component | Value | Ref Range | Performed | Pathologist | | | | | At | Signature | + + + + + + | ESR | 4Comment: Testing | 0 - 30 mm/Hr | REFERENCE | | | | performed at [facility];[address] | | LAB | | | | [place] | | [facility] | | | | Bl[address];[place] [address] | | LABORATORY | | + + + + + + + + | Specimen | + + | Blood | + + + + + + + | Performing | Address | City/State/Zipcode | Phone Number | | Organization | | | | + + + + + | REFERENCE LAB | [address] | [place] | [phone] | | [facility] | Bl[address] | [address] | | | LABORATORY | | | | + + + + + | REFERENCE LAB | [address] [facility] | [place] | | | [facility] | [place] | [address] | | | LABORATORY | | | | + + + + + documented in this encounter Visit Diagnoses + + | Diagnosis | + + | Primary osteoarthritis of left hip - Primary Primary localized osteoarthrosis, pelvic | | region and thigh | + + | Left hip pain Pain in joint, pelvic region and thigh | + + documented in this encounter
--- OUTSIDE RECORDS SUMMARY | ~2019-10-30 | XMS | Encounter Summary ---
Demographics + + + | Address | [address] | | | [place] [address] | + + + | Home Phone | | + + + | Preferred Language | Unknown | + + + | Marital Status | Single | + + + | Judaism Affiliation | Unknown | + + + | Race | White | + + + | Ethnic Group | Not or | + + + Author + + + | Author | [facility] | + + + | Organization | [facility] | + + + | Address | Unknown | + + + | Phone | Unavailable | + + + Support + + + + + | Name | Relationship | Address | Phone | + + + + + | Lolis Rodriguez | [address] | [address] | | | | | [address] | | | | | [address] | | + + + + + Care Team Providers + +------+ + | Care Adjunct Communications Faculty Member Name | Role | Phone | + +------+ + | James Horne MD | PCP | | + +------+ + Encounter Details +--------+ + + + + | Date | Type | Department | Care Team | Description | +--------+ + + + + | 01/30/ | Telephone | [facility] | Clair Kay MD | | | 2017 | | [facility] | [address] | | | | | [place] [address] [facility] [address] | | | | | [address] | [place], [place] | | | | | [place], [address] [place] [address] | [address] | | | | | [place], [place] | [phone] | | | | | [address] | | | | | | [phone] | | | +--------+ + + + [...]
--- OUTSIDE RECORDS SUMMARY | ~2019-10-30 | XMS | Encounter Summary ---
Demographics + + + | Address | [address] | | | [place] [address] | + + + | Home Phone | | + + + | Preferred Language | Unknown | + + + | Marital Status | Single | + + + | Yarsani Affiliation | Unknown | + + + | Race | White | + + + | Ethnic Group | Unknown | + + + Author + + + | Author | [facility] | | | and [place] | + + + | Organization | [facility] | | | and [place] | + + + | Address | Unknown | + + + | Phone | Unavailable | + + + Support + + +---------+ + | Name | Relationship | Address | Phone | + + +---------+ + | Rebecca Ellen | ECON | Unknown | | + + +---------+ + Care Team Providers + +------+ + | Care Transition Teacher Name | Role | Phone | + +------+ + | Mahendra Merchant | PCP | | + +------+ + Reason for Visit +---------+--------+ + | Reason | Onset | Comments | | | Date | | +---------+--------+ + | Results | 07/26/ | | | | 2020 | | +---------+--------+ + Encounter Details +--------+ + + + + | Date | Type | Department | Care Team | Description | +--------+ + + + + | 07/26/ | Telephone | [facility] | Dean Munroe, | Results | | 2019 | | [place] [address] | | | | | [place], [place] | [place] | | | | | [address] | [address] | | | | | [phone] | | | +--------+ + + + [...] this encounter Miscellaneous Notes Telephone Encounter - Gi Simmons - 07/28/2019 12:[address] Ludwig patient ca lled and stated that she spoke to her PCP and they will be conducting another A1-C next . Please call her back if there is any questions. elephone Encounter - Gi Simmons - 07/27/2019 2: [address] Ludwig patient called and stated that her A1-C was 8.5. If any questions call her back to discuss. Associated attestation - Dean Munroe MD - 07/27/2019 4:57 PM PDTWe need to call the patient and cancel her surgery. Her A1-C has to be less than 7.0 prior to surgery. Resched ule her for 3 months from now for repeat visit. She mus have repeat A1-C prior to visitdocu mented in this encounter Plan of Treatment Not on filedocumented as of this encounter Visit Diagnoses Not on filedocumented in this encounter"
--- OUTSIDE RECORDS SUMMARY | ~2019-10-30 | XMS | Encounter Summary ---
Demographics + + + | Address | [address] | | | [place] [address] | + + + | Home Phone | | + + + | Preferred Language | Unknown | + + + | Marital Status | Single | + + + | Denominational Affiliation | Unknown | + + + | Race | White | + + + | Ethnic Group | Unknown | + + + Author + + + | Author | [facility] | | | and [place] | + + + | Organization | [facility] | | | [...] Team Providers + +------+ + | Care Tank Bottom Assembler Name | Role | Phone | + [...] | 2019 | | [address] [facility] [address] | Relay Adjuster | | | | | [place] | | | | | | [address] | | | | | | [phone] | | | +--------+ + + + [...] Miscellaneous Notes Telephone Encounter - Armida Cummins, Relay Adjuster - 05/04/2019 9:47 AM PDTTried ca lling patient to let her know that per dr. Munroe As previously stated, I do not provide n arcotic pain medications prior to surgery. NSAIDS such as motrin or alleved can be used if tolerated, or tylenol. Ice and heat. Tumeric or CBD are also good adjuncts. Also, she needs to understand that I will only provide pain medication for a short duration after lluvia kenny and for surgical pain only. Tried calling home number & it was disconnected. Tried calling cell number & no answer & VM was full, could not leave VM. documented in this encounter Plan of Treatment Not on filedocumented as of this encounter Visit Diagnoses Not on filedocumented in this encounter"
--- OUTSIDE RECORDS SUMMARY | ~2019-10-30 | XMS | Encounter Summary ---
Demographics + + + | Address | [address] | | | [place] [address] | + + + | Home Phone | | + + + | Preferred Language | Unknown | + + + | Marital Status | Single | + + + | Christian Affiliation | Unknown | + + + | Race | White | + + + | Ethnic Group | Unknown | + + + Author + + + | Author | [facility] | | | and [place] | + + + | Organization | [facility] | | | [...] Team Providers + +------+ + | Care Candle Pourer Name | Role | Phone | + +------+ + | Gonzales Rivera NP | PCP | | + +------+ + Reason for Visit + + + | Reason | Comments | + + + | Pre-op Exam | Gama VALLE [facility] on 05/17/2019 | + + + Evaluate & Treat (Urgent) + +--------+ + + + + | Status | Reason | Specialty | Diagnoses / | Referred By | Referred To | | | | | Procedures | Contact | Contact | + +--------+ + + + + | Authorized | | Orthopedic | Diagnoses | [place], | [facility] | | | | Surgery | Pain in | Sharron Schwab, | [address] | | | | | left hip | [address] | | | | | Other | [address] | [place], [place] | | | | | chronic pain | AVE | [address] | | | | | | [place] | Phone: | | | | | | [place] [address] | [phone] | | | | | | Phone: | Fax: | | | | | | [phone] | [phone] | | | | | | Fax: | | | | | | | [phone] | | + +--------+ + + + + Encounter Details +--------+---------+ + + + | Date | Type | Department | Care Team | Description | +--------+---------+ + + + | 04/26/ | Office | [facility] | Rebecca Davis, | Primary | | 2020 | Visit | [place] [address] | osteoarthritis of | | | | [address]VD [place], [place] | [place] | left hip (Primary | | | | [address] | [address] | Dx) | | | | [phone] | | | +--------+---------+ + + + [...] + | Blood Pressure | 128/72 | 04/27/2019 8:33 AM | | | | | PST | | + + + + + | Pulse | 79 | 04/27/2019 8:33 AM | | | | | PST | | + + + + + | Temperature | - | - | | + + + + + | Respiratory Rate | - | - | | + + + + + | Oxygen Saturation | 98% | 04/27/2019 8:33 AM | | | | | PST | | + + + + + | Inhaled Oxygen | - | - | | | Concentration | | | | + + + + + | Weight | 83 kg (183 lb) | 04/27/2019 8:33 AM | | | | | PST | | + + + + + | Height | 157.5 cm (5' 2") | 04/27/2019 8:33 AM | | | | | PST | | + + + + + | Body Mass Index | 33.47 | 04/27/2019 8:33 AM | | | | | PST | | + + + + + documented in this encounter Progress Notes Rebecca Davis MD - 04/27/2019 9:00 AM PSTFormatting of this note might be different fr om the original. Chief Complaint Patient presents with Hip Pain [...] Patient has also tried inject ions for pain. Patient experiences numbness, tingling and swelling on her lower back. The p atient is now been non-smoking for 5 weeks per her report. Patient complains of groin pain and lateral hip pain. Patient has tried NSAIDs at a higher than safe quantity and duration . She feels that if she does not take them in this way that they do not help her. Vital Signs Vitals: 03/16/19 1039 BP: 128/72 [...] IN THE EVENING AND 2 TS AT [facility] NEEDED FOR MUSCLE SPASM/PAIN, Disp: , Rfl: 5 benzonatate (TESSALON) 100 mg capsule, Take 1 capsule by mouth 3 times daily as needed for Cough. (Patient not taking: Reported on 03/16/2019), Disp: 30 capsule, Rfl: 0 Eubkkbe-Bivlfnvcv-Nfhpdpb D 185-50-100 MG-MG-UNIT CAPS, Calcium Magnesium + [...] The left hip has severe e nd-stage roqy-lm-gfjk osteoarthritis with subchondral sclerosis and cysts on both the femora l and acetabular side. There is also marginal osteophyte formation Assessment and Plan ICD-10-CM ICD-9-CM 1. Primary osteoarthritis of left hip M16.12 715.15 2. Left hip pain M25.552 719.45 Sedimentation Rate C-Reactive Protein 58-year-old female with severe end-stage and severely symptomatic left hip osteoarthritis. The patient has now been non-smoking for the past 5 weeks. In addition to this the patie liz has a previous extensive history of MRSA infections. She reports that her right hip had an infection at some point prior to her arthroplasty but did not have any problems after thi s. ESR and CRP were within normal limits. We will go ahead and schedule her for left total hip arthroplasty. I did discuss with her that due to her extensive history of MRSA infecti ons that she is at a increased risk. She acknowledged this and wishes to proceed. It was discussed with the patient about [...] their under standing and wished to proceed. Follow-up 2 weeks postop Rebecca Davis MD documented in this e ncounter H&P Notes Rebecca Davis MD - 04/27/2019 9:00 AM PSTFormatting of this note might be different fr om the original. Chief Complaint Patient presents with Hip Pain [...] Patient has also tried inject ions for pain. Patient experiences numbness, tingling and swelling on her lower back. The p atient is now been non-smoking for 5 weeks per her report. Patient complains of groin pain and lateral hip pain. Patient has tried NSAIDs at a higher than safe quantity and duration . She feels that if she does not take them in this way that they do not help her. Vital Signs Vitals: 03/16/19 1039 BP: 128/72 [...] on 03/16/2019), Disp: 30 capsule, Rfl: 0 Srwdcpa-Kznovigye-Oxffclv D 185-50-100 MG-MG-UNIT CAPS, Calcium Magnesium + [...] The left hip has severe e nd-stage catz-cz-luig osteoarthritis with subchondral sclerosis and cysts on both the femora l and acetabular side. There is also marginal osteophyte formation Assessment and Plan ICD-10-CM ICD-9-CM 1. Primary osteoarthritis of left hip M16.12 715.15 2. Left hip pain M25.552 719.45 Sedimentation Rate C-Reactive Protein 58-year-old female with severe end-stage and severely symptomatic left hip osteoarthritis. The patient has now been non-smoking for the past 5 weeks. In addition to this the yosef ent has a previous extensive history of MRSA infections. She reports that her right hip had an infection at some point prior to her arthroplasty but did not have any problems after th is. ESR and CRP were within normal limits. We will go ahead and schedule her for left tota l hip arthroplasty. I did discuss with her that due to her extensive history of MRSA infect ions that she is at a increased risk. She acknowledged this and wishes to proceed. It was discussed with the patient about [...] their under standing and wished to proceed. Follow-up 2 weeks postop Rebecca Davis MD documented in this e ncounter Miscellaneous Notes Addendum Note - Rebecca Davis MD - 04/27/2019 9:00 AM PST Addended by: REBECCA DAVIS on: 04/27/2019 12:06 PM Modules accepted: Orders ddendum Note - Rebecca Winn MD - 04/27/2019 9:00 AM PST Addended by: REBECCA DAVIS on: 04/27/2019 12:05 PM Modules accepted: Orders documented in this encounter Plan of Treatment Not on filedocumented as of this encounter Visit Diagnoses + + | Diagnosis | + + | Primary osteoarthritis of left hip - Primary Primary localized osteoarthrosis, pelvic | | region and thigh | + + documented in this encounter
--- OUTSIDE RECORDS SUMMARY | ~2019-10-30 | XMS | Encounter Summary ---
Demographics + + + | Address | [address] | | | [place] [address] | + + + | Home Phone [...] + + + | Author | [facility] | | | and [place] | + + + | Organization | [facility] | | | and [place] | + + + | Address | Unknown | + + + | Phone | Unavailable | + + + Support + + +---------+ + | Name | Relationship | Address | Phone | + + +---------+ + | Rebceca Ellen | ECON | Unknown | | + + +---------+ + Care Team Providers + +------+ + | Care Gyroscopic Instrument Tester Name | Role | Phone | + +------+ + | Mahendra Merchant | PCP | | + +------+ + Encounter Details +--------+ + + + + | Date | Type | Department | Care Team | Description | +--------+ + + + + | 04/05/ | Orders Only | [facility] | Mariposa Fuller, | Left hip pain | | 2020 | | [address] | Surveying Or Spatial Science Technician | | | | | [place], [place] | | | | | | [address] | | | | | | [phone] | | | +--------+ + + + [...] + | SEDIMENTATION RATE | Routin | 04/05/2019 | Left hip pain | Results for this | | | e | 3:07 PM | | procedure are in the | | | | PST | | results section. | + +--------+ + + + | C-REACTIVE PROTEIN | Routin | 04/05/2019 | Left hip pain | Results for this | | | e | 3:07 PM | | procedure are in the | | | | PST | | results section. | + +--------+ + + + documented in this encounter Results C-Reactive Protein (04/05/2019 3:07 PM PST) + + + + + + | Component | Value | Ref Range | Performed | Pathologist | | | | | At | Signature | + + + + + + | CRP | <0.3Comment: Testing | <0.5 mg/dL | REFERENCE | | | | performed at [facility];[address] | | LAB | | | | [facility] | | [facility] | | | | [address];[place] [address] | | LABORATORY | | + + + + + + + + | Specimen | + + | Blood | + + + + + + + | Performing | Address | City/State/Zipcode | Phone Number | | Organization | | | | + + + + + | REFERENCE LAB | [address] [place] [address] | [place], [place] | [phone] | | [facility] | [address] | [address] | | | LABORATORY | | | | + + + + + | REFERENCE LAB | [address] [place] [address] | [place], [place] | | | [facility] | [address] | [address] | | | LABORATORY | | | [...] REFERENCE | | | | performed at [facility];[address] | | LAB | | | | [place] | | [facility] | | | | Bl[address];[place] [address] | | LABORATORY | | + + + + + + + + | Specimen | + + | Blood | + + + + + + + | Performing | Address | City/State/Zipcode | Phone Number | | Organization | | | | + + + + + | REFERENCE LAB | [address] [place] [address] | [place] | [phone] | | [facility] | Bl[address] | [address] | | | LABORATORY | | | | + + + + + | REFERENCE LAB | [address] [place] [address] | [place] | | | [facility] | [address] | [address] | | | LABORATORY | | | | + + + + + documented in this encounter Visit Diagnoses + + | Diagnosis | + + | Left hip pain Pain in joint, pelvic region and thigh | + + documented in this encounter"
--- OUTSIDE RECORDS SUMMARY | ~2019-10-30 | XMS | Encounter Summary ---
Demographics + + + | Address | [address] | | | [place] [address] | + + + | Home Phone [...] Team Providers + +------+ + | Care Fuel Technician Name | Role | Phone | + +------+ + | Gonzales Rivera NP | PCP | | + +------+ + Encounter Details +--------+ + + + + | Date | Type | Department | Care Team | Description | +--------+ + + + + | 01/06/ | Hospital | [facility] | Rigo Muniz | Pain in both knees, | | 2018 | Encounter | [facility] | [address] | unspecified | | | | [address] [place] | [address] | chronicity; | | | | [place], [place] | [place] [address] | Bilateral hip pain | | | | [address] | [phone] | | | | | [phone] | | | +--------+ + + + [...] | 0 | 03/04/19 | | | Buf,[id number]-Ol | | | | 15 | | [...]
--- OUTSIDE RECORDS SUMMARY | ~2019-10-30 | XMS | Encounter Summary ---
Demographics + + + | Address | [address] | | | [place] [address] | + + + | Home Phone | | + + + | Preferred Language | Unknown | + + + | Marital Status | Single | + + + | Mu-Ism Affiliation | Unknown | + + + | Race | White | + + + | Ethnic Group | Unknown | + + + Author + + + | Author | [facility] | | | and [place] | + + + | Organization | [facility] | | | [...] Team Providers + +------+ + | Care Lcac Operator Name | Role | Phone | + +------+ + | Mahendra Merchant | PCP | | + +------+ + Encounter Details +--------+ + + + + | Date | Type | Department | Care Team | Description | +--------+ + + + + | 06/01/ | Imaging | [facility] | Provider, | | | 2020 | Exam | [facility] | [address] | | | | | IMAGING [address] | [address] | | | | | [address] [place] | [place] [address] | | | | | [place] [address] | | | | | | [phone] | | | +--------+ + + + [...] +--------+ + + + | XR HIP LEFT 2-3 | Routin | 05/28/2016 | | Results for this | | VIEWS | e | 12:05 AM | | procedure are in the | | | | PDT | | results section. | + +--------+ + + + documented in this encounter Results XR Hip Left 2-3 Views (05/28/2016 12:05 AM PDT) + + | Specimen | + + | | + + + + + | Narrative | Performed At | + + + | External films for comparison only | [facility] | | | | | No results will be in the chart. | | + + + + +---------+ + + | Performing | Address | City/State/Zipcode | Phone Number | | Organization | | | | + +---------+ + + | [facility] | | | | + +---------+ + + documented in this encounter Visit Diagnoses Not on filedocumented in this encounter"
--- OUTSIDE RECORDS SUMMARY | ~2019-10-30 | XMS | Encounter Summary ---
Demographics + + + | Address | [address] | | | [place] [address] | + + + | Home Phone | | + + + | Preferred Language | Unknown | + + + | Marital Status | Single | + + + | Buddhist Affiliation | Unknown | + + + | Race | White | + + + | Ethnic Group | Not or | + + + Author + + + | Author | [facility] | + + + | Organization | [facility] | + + + | Address | Unknown | + + + | Phone | Unavailable | + + + Support + + + + + | Name | Relationship | Address | Phone | + + + + + | Lolis Rodriguez | [place] [address] | | | | | [address] | | | | | [address] | | + + + + + Care Team Providers + +------+ + | Care Farm Planner Name | Role | Phone | + [...] as of this encounter Progress Notes Interface, Stone Planer In - 09/20/2005 1:11 AM PDTCLINIC DATE: 02/08/2002 [facility] This is a conference/coordination of care visit consisting of 30 minutes of vetn-tw-eduo time with the patient. CHIEF COMPLAINT: "I am having hard time staying awake." HISTORY OF PRESENT ILLNESS: The patient relates a history of chronic fatigue, decreased memory, and right upper quadrant pain. Her right upper quadrant pain has been evaluated in the past by Gastroenterology here at [facility]. Additionally, more recently, she has developed a leg injury that has resulted in low back pain and right leg pain. She is currently being treated by Dr. Roberts in [place] who has scheduled her for an MRI [...] and tobacco use since 1976. CURRENT MEDICATIONS: [place] 300 mg 5 times a day, Paxil [...] her records from Dr. Dougie Gaviria of [place] to be transferred here to [facility]. The patient will return to the clinic at the next available appointment for a complete physical examination. James Boss M.D., [facility] / [id number] / [id number] / [id number] / Tdocumented in this encounter Plan of Treatment Not on filedocumented as of this encounter Visit Diagnoses Not on filedocumented in this encounter
--- OUTSIDE RECORDS SUMMARY | ~2019-10-30 | XMS | Encounter Summary ---
Demographics + + + | Address | [address] | | | [place] [address] | + + + | Home Phone | | + + + | Preferred Language | Unknown | + + + | Marital Status | Single | + + + | Caodaism Affiliation | Unknown | + + + | Race | White | + + + | Ethnic Group | Not or | + + + Author + + + | Author | [facility] | + + + | Organization | [facility] | + + + | Address | Unknown | + + + | Phone | Unavailable | + + + Support + + + + + | Name | Relationship | Address | Phone | + + + + + | Lolis Rodriguez | [place] | [address] | | | | | [address] | | | | | [address] | | + + + + + Care Team Providers + +------+ + | Care Mica Splitter Name | Role | Phone | + [...] | | | al | MEDICAL | [address] | | | | | status(V45.8 | GROUP | [place], | | | | | [address]) | [place] | [place], [place] | | | | | Procedures | [address] | [address] | | | | | [place] | [address] | Phone: | | | | | LABS | [address] | [phone] | | | | | | [place], [place] | Fax: | | | | | | [address] | [phone] | | | | | | Phone: | | | | | | | [phone] | | | | | | | Fax: | | | | | | | [phone] | | +--------+--------+ + + + + Encounter Details +--------+ + + + + | Date | Type | Department | Care Team | Description | +--------+ + + + + | 10/10/ | [facility] | [facility] | Sree Abdul Nurse | [facility] | | 2014 | l Support | [facility] [place] | [address] [place] | | | | Staff | [address], | [address] [place], [place] | | | | | [place], [place] | [address] | | | | | [address] | [phone] | | | | | [phone] | | | | | | | Sree Jain Ma | | | | | | Schedule [place], | | | | | | [place] [address] | | +--------+ + + + + [...] documented in this encounter Progress Notes Tari Shankar RN - 10/10/2013 4:12 PM Brionna Javed is [...]
--- OUTSIDE RECORDS SUMMARY | ~2019-10-30 | XMS | Encounter Summary ---
Demographics + + + | Address | [address] | | | [place] [address] | + + + | Home Phone [...] | Author | [facility] | | | and [place] | + + + | Organization | [facility] | | | and [...] Team Providers + +------+ + | Care Chemical Equipment Sales Engineer Name | Role | Phone | + +------+ + | Gonzales Rivera NP | PCP | | + +------+ + Reason for Visit + + + | Reason | Comments | + + + | Hip Pain | left hip[ that radiates to groin and through hip to left buttocks | | | and down left leg | + + + Encounter Details +--------+ + + + + | Date | Type | Department | Care Team | Description | +--------+ + + + + | 02/20/ | Emergency | [facility] | Franck Dowd | Chronic left hip | | 2019 | | MEDICAL CENTER | MD Raf [address] | pain (Primary Dx); | | | | EMERGENCY CENTER | [address] [place], [place] | Primary | | | | [address] [facility] | [address] | osteoarthritis of | | | | [place], [place] | [phone] | left hip; Smokers' | | | | [address] | | cough (HCC) | | | | [phone] | | | +--------+ + + + [...] + + + | Blood Pressure | 124/82 | 02/20/2019 2:39 AM | | | | | PST | | + + + + + | Pulse | 91 | 02/20/2019 2:39 AM | | | | | PST | | + + + + + | Temperature | 36.7 C (98 F) | 02/20/2019 2:39 AM | | | | | PST | | + + + + + | Respiratory Rate | 18 | 02/20/2019 2:39 AM | | | | | PST | | + + + + + | Oxygen Saturation | 99% | 02/20/2019 2:39 AM | | | | | PST | | + + + + + | Inhaled Oxygen | - | - | | | Concentration | | | | + + + + + | Weight | 89.4 kg (197 lb) | 02/20/2019 1:40 AM | | | | | PST | | + + + + + | Height | 157.5 cm (5' 2") | 02/20/2019 1:40 AM | | | | | PST | | + + + + + | Body Mass Index | 36.03 | 02/20/2019 1:40 AM | | | | | PST | | + + + + + documented in this encounter Discharge Instructions Franck Land MD - 02/20/2019The ED is unable to provide or refill narco tic pain medication or other controlled substances for chronic pain problems. We are also un able to change your controlled substance prescriptions for chronic pain. Per the [facility] guidelines for the treatment of chronic pain, approved by the Dept of [facility] and [facility] [employer], you should receive all of your pain medications through a single provider - either a primary care provider or specialist (such as a pain-co ntrol specialist). Per [facility] guidelines, emergency department interventions are very limited and we are not able to give injections for chronic pain problems, even in [facility] setting of severe recent worsening. These guidelines were developed for your safety yuliya use emergency physicians are not trained in the treatment of chronic pain and seeking pain m anagement from multiple physicians (e.g. Your primary physician, pain, specialist, and one o r more emergency physicians) can lead to serious or fatal medical and/or medication errors. While we are very sympathetic to your pain condition we comply with the [facility] guidelines for your safety. To help facilitate your outpatient management of your pain we will send a noti fication of this visit to your primary care physician and/or your pain master fire control technician. AttachmentsThe following attachments cannot be sent through Care Everywhere.Osteoarthritis, Living with ([place])Osteoarthritis, What Is ([place])documented in this encounter Medications at Time of Discharge + + + +---------+ + + | Medication | Sig | Dispensed | Refills | Start | End Date | | | | | | Date | | + + + +---------+ + + | albuterol 2.5 mg/3 | Inhale 2.5 mg into | | 0 | 07/30/19 | | | mL nebulizer | the lungs. | | | 16 | | | solution | | | | | | + + + +---------+ + + | | Inhale 3 mLs into | | 0 | 05/01/19 | | | albuterol-ipratropiu | the lungs. | | | 16 | | | m 2.5-0.5 mg/3 mL | | | | | | | SOLN | | | | | | + + + +---------+ + + | Aspirin | Take 81 mg by mouth. | | 0 | 03/04/19 | | | Buf,RjSonm-TxZxej-Aw | | | | 15 | | | O, 81 MG TABS | | | | | | + + + +---------+ + + | atorvaSTATin | | | 0 | 12/18/19 | | | (LIPITOR) 80 MG | | | | 19 | | | tablet | | | | | | + + + +---------+ + + | COMBIGAN 0.2-0.5 % | | | 0 | 02/02/20 | | | ophthalmic solution | | | | 19 | | + + + +---------+ + + | diazePAM (VALIUM) | | | 0 | 10/28/19 | | | 10 MG tablet | | | | 19 | | + + + +---------+ + + | diphenhydrAMINE | Take 50 mg by mouth | | 0 | | | | (BENADRYL) 50 MG | nightly as needed | | | | | | tablet | for Itching. | | | | | + + + +---------+ + + | DUREZOL 0.05 % | | | 0 | 12/29/19 | | | EMUL opthalmic soln | | | | 19 | | + + + +---------+ + + | fluticasone | INSTILL 1 TO 2 | | 0 | /04/14 | | | (FLONASE) 50 | SPRAYS IEN BID | | | 18 | | | mcg/nasal spray | | | | | | + + + +---------+ + + | HUMALOG 100 | | | 2 | 12/20/20 | | | UNIT/ML injection | | | | 18 | | | (vial) | | | | | | + + + +---------+ + + | HUMALOG KWIKPEN | | | 0 | //20 | | | 100 UNIT/ML | | | | 19 | | | injection (pen) | | | | | | + + + +---------+ + + | Insulin | | | 5 | 12/20/20 | | | Syringe-Needle U-100 | | | | 18 | | | (INSULIN SYRINGE | | | | | | | .3CC/30GX5/16") 30G | | | | | | | X 07/08" 0.3 ML MISC | | | | | | + + + +---------+ + + | Insulin | USE TO INJECT LANTUS | | 5 | 01/30/20 | | | Syringe-Needle U-100 | QHS | | | 18 | | | (INSULIN SYRINGE | | | | | | | .5CC/31GX5/16") 31G | | | | | | | X 07/08" 0.5 ML MISC | | | | | | + + + +---------+ + + | lamoTRIgine | | | 0 | 12/28/19 | | | (LAMICTAL) 200 MG | | | | 19 | | | tablet | | | | | | + + + +---------+ + + | LANTUS 100 UNIT/ML | INJECT 10 UNITS | | 2 | 01/30/20 | | | injection (vial) | UNDER THE SKIN QHS | | | 18 | | + + + +---------+ + + | levothyroxine | TK 1 T PO QD | | 1 | 02/20/20 | | | (SYNTHROID) 100 mcg | | | | 18 | | | tablet | | | [...] + + + +---------+ + + | OZEMPIC, 0.25 OR | | | 0 | 12/17/19 | | | 0.5 MG/DOSE, 2 | | | | 19 | | | MG/1.5ML injection | | | | | | + + + +---------+ + + | prazosin | | | 0 | 01/05/20 | | | (MINIPRESS) 5 mg | | | | 19 | | | capsule | | | [...] + + + +---------+ + + | benzonatate | Take 1 capsule by | 30 | 0 | 02/21/20 | | | (TESSALON) 100 mg | mouth 3 times daily | capsule | | 19 | 0 | | capsule | as needed for Cough. | | | | | + + + +---------+ + + | diclofenac | | | 0 | 02/01/20 | | | (VOLTAREN) 1% GEL | | | | 19 | 0 | + + + +---------+ + + | diclofenac | APPLY 2 GRAM | | 3 | 12/26/19 | | | (VOLTAREN) 1% GEL | TOPICALLY AA BID | | | 18 | 0 | + + + +---------+ + + | fluticasone | | | 0 | 09/29/19 | | | (FLONASE) 50 | | | | 19 | 0 | | mcg/nasal spray | | | | | | + + + +---------+ + + | gabapentin | GRADUALLY INCREASE | | 5 | 01/28/20 | | | (NEURONTIN) 300 mg | TO TAKING ONE C PO | | | 18 | 0 | | capsule | 3 XD TOLERATED | | | | | + + + +---------+ + + | gabapentin | | | 0 | 12/28/19 | | | (NEURONTIN) 300 mg | | | | 19 | 0 | | capsule | | | | | | + + + +---------+ + + | glipiZIDE | TK 1 T PO BID | | 3 | 10/30/19 | | | (GLUCOTROL) 5 mg | | | | 18 | 0 | | tablet | | | | | | + + + +---------+ + + | HUMALOG 100 | | | 0 | 12/23/19 | | | UNIT/ML injection | | | | 19 | 0 | | (vial) | | | | | | + + + +---------+ + + | ibuprofen | | | 0 | 12/15/19 | | | (ADVIL,MOTRIN) 800 | | | | 19 | 0 | | MG tablet (ED | | | | | | | prepack) | | | | | | + + + +---------+ + + | LANTUS 100 UNIT/ML | | | 0 | 12/23/19 | | | injection (vial) | | | | 19 | 0 | + + + +---------+ + + | levothyroxine | | | 0 | 12/27/19 | | | (SYNTHROID) 100 mcg | | | | 19 | 0 | | tablet | | | | | | + + + +---------+ + + | LORazepam (ATIVAN) | | | 0 | 08/21/19 | | | 0.5 mg tablet (ER | | | | 19 | 0 | | Prepack) | | | | | | + [...] + + + +---------+ + + | naproxen | Take 1 tablet by | 30 | 0 | 02/21/20 | | | (NAPROSYN) 500 mg | mouth every 12 | tablet | | 19 | 0 | | tablet | hours. For 5 days, | | | | | | | then Q 12 hours PRN | | | | | | | pain | | | | | + + + +---------+ + + | PREMARIN 0.625 | | | 0 | 12/29/19 | | | MG/GM vaginal cream | | | | 19 | 0 | + + + +---------+ + + documented as of this encounter ED Notes Franck Dowd MD - 02/20/2019 1:53 AM PST [facility] Department of Emergency Medicine No flowsheet data found. History of Present Illness Patient Identification Laury Crockett is a 58 y.o. female. Patient information was obtained from patient and past medical records. History/Exam limitations: none. Patient presented to the Emergency Department by: Car Chief Complaint Chief Complaint Patient presents with Hip Pain left hip[ that radiates to groin and through hip to left buttocks and down left leg The patient presents with a complaint of pain in the left lower back, left hip, and left le g. Onset of symptoms: many years ago, with worsening course today because of long car ride. The severity of the patient s discomfort is reported to be severe. The patient reports the following associated symptoms: none. Other, secondary areas of pain noted : as above. Palliative properties: nothing. Provocative properties: walking, internal and external rot ation of hip, prolonged sitting, bending, twisting. Pt does report she has fallen "a couple of times" recently but is very vague about this and cannot give any detailes. Was able to walk in to ED. History of similar problem?: Yes. The following pre-hospital care has been provided: ibuprofen and neurontin. PCP: Gonzales Rivera NP Past Medical History: Diagnosis Date Ankylosing spondylitis (HCC) Arthritis Carpal tunnel syndrome Fractures Osteoarthritis Osteoporosis Scoliosis Spondylolisthesis History reviewed. No pertinent surgical history. Prior to Admission medications Medication Sig Start Date End Date Taking? Authorizing Provider albuterol 2.5 mg/3 mL nebulizer solution Inhale 2.5 mg into the lungs. 07/30/15 Historical Provider, albuterol-ipratropium 2.5-0.5 mg/3 mL SOLN Inhale 3 mLs into the lungs. 05/01/15 Historical Provider, atorvaSTATin (LIPITOR) 40 mg tablet Take 40 mg by mouth. 05/01/15 Historical Provider, baclofen (LIORESAL) 10 mg tablet TK 1 T PO QAM AND 1 T IN THE EVENING AND 2 TS AT NIGHT NEEDED FOR MUSCLE SPASM/PAIN 11/17/17 Historical Provider, diclofenac (VOLTAREN) 1% GEL APPLY 2 GRAM TOPICALLY AA BID 12/25/17 Historical ProviderJeannine diphenhydrAMINE (BENADRYL) 50 MG tablet Take 50 mg by mouth nightly as needed for Itching. Historical Provider, fluticasone (FLONASE) 50 mcg/nasal spray INSTILL 1 TO 2 SPRAYS IEN BID 12/25/17 Historical Provider, gabapentin (NEURONTIN) 300 mg capsule GRADUALLY INCREASE TO TAKING ONE C PO 3 XD TOLERA TAMIKO 01/27/18 Historical Provider, glipiZIDE (GLUCOTROL) 5 mg tablet TK 1 T PO BID 10/29/17 Historical Provider, HUMALOG 100 UNIT/ML injection (vial) 02/11/18 Historical Provider, ibuprofen (ADVIL,MOTRIN) 800 MG tablet TK 1 T PO Q 6 H PRN P 11/16/17 Historical Provider , Insulin Syringe-Needle U-100 (INSULIN SYRINGE .3CC/30GX5/16") 30G X 5/16" 0.3 ML MISC 01/24 Historical Provider, Insulin Syringe-Needle U-100 (INSULIN SYRINGE .5CC/31GX5/16") 31G X 5/16" 0.5 ML MISC USE T O INJECT LANTUS QHS 01/29/18 Historical Provider, LANTUS 100 UNIT/ML injection (vial) INJECT 10 UNITS UNDER THE SKIN QHS 01/29/18 Historical Provider, levothyroxine (SYNTHROID) 100 mcg tablet TK 1 T PO QD 02/19/18 Historical Provider, metFORMIN (GLUCOPHAGE-XR) 500 mg 24 hr tablet TAKE 1 TABLET BY MOUTH TWICE DAILY 10/24/15 Historical Provider, metoprolol succinate (TOPROL-XL) 25 mg 24 hr tablet TK 1 T PO BID 12/25/17 Historical Prov iderMD mometasone (NASONEX) 50 mcg/nasal spray 2 sprays by Nasal route. 05/01/15 Historical Provid erMD Multiple Vitamin (MULTIVITAMIN) capsule Take 1 capsule by mouth. Historical Provider, nitroglycerin (NITROSTAT) 0.[address] 0.4 mg under the tongue. 02/02/14 Histor ical Provider, omeprazole (PRILOSEC) 20 mg capsule TK 1 C PO D 10/29/17 Historical Provider, ondansetron (ZOFRAN ODT) 4 mg disintegrating tablet DIS ONE T PO Q 8 HOURS NEEDED 10/30/17 Historical Provider, PREMARIN 0.625 MG/GM vaginal cream INSERT 1 GRAM VAGINALLY AT NIGHT TWICE A WEEK 11/16/17 Historical Provider, promethazine (PHENERGAN) 25 mg tablet TAKE 1 TABLET BY MOUTH EVERY 6 HOURS NEEDED FOR NA USEA 08/08/15 Historical Provider, sertraline (ZOLOFT) 100 mg tablet TAKE 2 TABLETS BY MOUTH AT BEDTIME 05/01/15 Historical Pr oviderMD tiotropium (SPIRIVA RESPIMAT) 1.25 mcg/puff inhaler Spiriva Respimat once qday Historical Provider, VENTOLIN HFA 108 (90 Base) MCG/ACT inhaler INL 2 PFS PO Q 4 H PRF WHZ OR SOB 12/25/17 Hist orical Provider, Allergies Allergen Reactions Celecoxib Shortness Of Breath and Swelling Rizatriptan Anaphylaxis "Swelling of throat & asthma attack" Solifenacin Anaphylaxis Tramadol Anaphylaxis and Hives Duloxetine Other (See Comments) Suicidal thoughts Social History Socioeconomic History Marital status: Single Spouse name: Not on file Number of children: Not on file Years of education: Not on file Highest education level: Not on file Occupational History Not on file Social Needs Financial resource strain: Not on file Food insecurity: Worry: Not on file Inability: Not on file Transportation needs: Medical: Not on file Non-medical: Not on file Tobacco Use Smoking status: Current Every Day Smoker Smokeless tobacco: Never Used Substance and Sexual Activity Alcohol use: Not on file Drug use: Not on file Sexual activity: Not on file Lifestyle Physical activity: Days per week: Not on file Minutes per session: Not on file Stress: Not on file Relationships Social connections: Talks on phone: Not on file Gets together: Not on file Attends islam service: Not on file Active member of club or organization: Not on file Attends meetings of clubs or organizations: Not on file Relationship status: Not on file Intimate partner violence: Fear of current or ex partner: Not on file Emotionally abused: Not on file Physically abused: Not on file Forced sexual activity: Not on file Other Topics Concern Not on file Social History Narrative Not on file History reviewed. No pertinent family history. Review of Systems Constitutional: Negative for: recent illness Eyes: Negative for: vision changes Throat: Negative for: dental injury Cardiovascular/Respiratory: Negative for: chest pain, shortness of breath Gastrointestinal: Negative for: abdominal pain, vomiting, diarrhea Genitourinary: Negative for: hematuria, urinary problems Musculoskeletal: Pain as above Skin: Negative for rash. Neuro and psych: Negative for: fainting Endocrine/Heme/Lymph: Negative for: swollen lymph nodes All other review of systems negative except as mentioned. Physical Exam Temp: 36.4 C (97.6 F) Pulse: 107 Resp: 17 BP: 136/87 SpO2: 98 % Pulse Oximetry interpretation: Normal VS: Borderline tachycardia, else normal. General: Alert, in no apparent distress Eyes: Normal inspection, pupils equal and round, sclera non-icteric ENT: Ears normal Nose normal Neck: Normal inspection. No vertebral point tenderness. No gross step-off. Supple No lymphadenopathy No meningismus Cardiovascular: Normal rate, rhythm. No murmur. Respiratory: No respiratory distress. No wheezing, rales, or rhonchi. Good air movement. Abdomen: Soft, non-tender, non-distended No guarding or rebound Back: Allodynic tenderness to light touch of the skin of the left lower back and left butt ock. No gross step-off. Upper Extrem: Benign Lower Extrem: There is a left knee brace present. There is allodynic pain to palpation of the skin of the left leg and ankle/foot. NVT function is normal. Pain with internal and ex ternal rotation (especially external). Skin: Color normal Warm and dry No rash, else as above Neuro: No motor deficit No sensory deficit Dorsiflexion of great toes is normal bilaterally. There is no saddle numbness nor is the re other evidence of cord compression syndromes. Medical Decision Making and Emergency Department Course ED Department Course Pt with chronic left hip pain worse after some recent falls (very vague about this) and alfonso g car trip today. Known DJD of the hip. No venous cording or swelling to suggest non musculo skeletal etiology. Will get Xray. Pt mostly wants pain medication but also wants orthopedi c referral. Xray shows chronic changes. Will switch ibuprofen to naproxen. Pt already on Baclofen. W ill refer to Orthopedics for follow up. No evidence of DVT, septic arthritis, fracture, dislocation, abscess, or other potentially serious and acute cause of the patient's extremity pain. Records Reviewed Old medical records. Multiple prior ED visits noted for unrelated complaints. Medications Administered in ED Medications benzonatate (TESSALON) capsule 200 mg (has no administration in time range) naproxen (NAPROSYN) tablet 500 mg (500 mg Oral Given 02/20/19 0202) cyclobenzaprine (FLEXERIL) tablet 10 mg (10 mg Oral Given 02/20/19 020) Laboratory Evaluation Abnormal Labs Reviewed - No data to display Radiology and ECG Evaluation Recent Results (from the past 360 hour(s)) XR Hip Left 2-3 Views Narrative LEFT HIP TWO VIEWS CLINICAL INFORMATION: Patient has had multiple falls. Left hip pain that radiates to her groin and through hip to left buttocks and down left leg. COMPARISON: XR HIP BILATERAL 3-4 VIEWS (01/06/2018); FINDINGS: Right hip total arthroplasty is intact. There is increased superolateral joint space narrowing and subchondral sclerosis in the left hip joint. No acute fracture is demonstrated. No dislocation. Impression 1. No acute fracture or dislocation. 2. Interval progression of moderate osteoarthritic changes in the left hip. Signed by: Janes Elise Paula Sign Date/Time: 02/20/2019 2:31 AM Diagnosis: 1. Chronic left hip pain 2. Primary osteoarthritis of left hip 3. Smokers' cough (HCC) Disposition: ED Disposition ED Disposition Condition Comment Discharge Stable Follow up: Follow-up Information Schedule an appointment as soon as possible for a visit with Gonzales Rivera NP. Specialty: Nurse Practitioner Contact information: [address] [facility] [place] [facility] [place] [address] Schedule an appointment as soon as possible for a visit with [facility]. Specialty: Orthopedic Surgery Contact information: [facility] [phone] Discharge Medications: New Prescriptions BENZONATATE (TESSALON) 100 MG CAPSULE Take 1 capsule by mouth 3 times daily as needed f or Cough. NAPROXEN (NAPROSYN) 500 MG TABLET Take 1 tablet by mouth every 12 hours. For 5 days, th en Q 12 [place] [id number] Pt requested Tessalon prior to discharge citing increased pain with her smoker's cough. Franck Dowd MD 02/20/19234 documented in this encounter Plan of Treatment Not on filedocumented as of this encounter Procedures + +--------+ + + + | Procedure Name | Priori | Date/Time | Associated Diagnosis | Comments | | | ty | | | | + +--------+ + + + | XR HIP LEFT 2-3 | ABNER | 02/20/2019 | | Results for this | | VIEWS | | 2:24 AM | | procedure are in the | | | | PST | | results section. | + +--------+ + + + documented in this encounter Results XR Hip Left 2-3 Views (02/20/2019 2:24 AM PST) + + | Specimen | + + | | + + + + + | Impressions | Performed At | + + + | 1. No acute fracture or dislocation. 2. Interval progression of | [facility] | | moderate osteoarthritic changes in the left hip. Signed by: | | | Janes Elise, Allison Sign Date/Time: 02/20/2019 2:31 AM | | + + + + + + | Narrative | Performed At | + + + | LEFT HIP TWO VIEWS CLINICAL INFORMATION: Patient has had | [facility] | | multiple falls. Left hip pain that radiates to her groin and through | | | hip to left buttocks and down left leg. COMPARISON: XR HIP | | | BILATERAL 3-4 VIEWS (01/06/2018); FINDINGS: Right hip total | | | arthroplasty is intact. There is increased superolateral joint | | | space narrowing and subchondral sclerosis in the left hip joint. No | | | acute fracture is demonstrated. No dislocation. | | + + + + + | Procedure Note | + + | Kalen, Rad Results In - 02/20/2019 2:34 AM PST | | LEFT HIP TWO VIEWS | | | | CLINICAL INFORMATION: | | Patient has had multiple falls. Left hip pain that radiates to her | | groin and through hip to left buttocks and down left leg. | | | | COMPARISON: | | XR HIP BILATERAL 3-4 VIEWS (01/06/2018); | | | | FINDINGS: | | Right hip total arthroplasty is intact. There is increased | | superolateral joint space narrowing and subchondral sclerosis in the | | left hip joint. No acute fracture is demonstrated. No dislocation. | | | | IMPRESSION: | | 1. No acute fracture or dislocation. | | 2. Interval progression of moderate osteoarthritic changes in the left | | hip. | | | | | | | | Signed by: Janes Elise Paula | | Sign Date/Time: 02/20/2019 2:31 AM | + + + +---------+ + + | Performing | Address | City/State/Zipcode | Phone Number | | Organization | | | | + +---------+ + + | [facility] | | | | + +---------+ + + documented in this encounter Visit Diagnoses + + | Diagnosis | + + | Chronic left hip pain - Primary Pain in joint, pelvic region and thigh | + + | Primary osteoarthritis of left hip Primary localized osteoarthrosis, pelvic region | | and thigh | + + | Smokers' cough (HCC) Simple chronic bronchitis | + + documented in this encounter Administered Medications + +--------+ +--------+------+------+ | Medication Order | MAR | Action | Dose | Rate | Site | | | Action | Date | | | | + +--------+ +--------+------+------+ | benzonatate (TESSALON) capsule | Given | 02/21/20 | 200 mg | | | | 200 mg 200 mg, Oral, ONCE, Sun | | 19 2:39 | | | | | 02/20/19 at 0240, For 1 dose, | | AM PST | | | | | Swallow capsule whole. Do not | | | | | | | chew or crush., | | | | | | + +--------+ +--------+------+------+ +---+---+ | | | +---+---+ + +-------+ +-------+---+---+ | cyclobenzaprine (FLEXERIL) | Given | 02/21/20 | 10 mg | | | | tablet 10 mg 10 mg, Oral, ONCE, | | 19 2:02 | | | | | 02/20/19 at 0155, For 1 dose | | AM PST | | | | + +-------+ +-------+---+---+ +---+---+ | | | +---+---+ + +-------+ +--------+---+---+ | naproxen (NAPROSYN) tablet 500 | Given | 02/21/20 | 500 mg | | | | mg 500 mg, Oral, ONCE, Sun | | 19 2:02 | | | | | 02/20/19 at 0155, For 1 dose | | AM PST | | | | + +-------+ +--------+---+---+ +---+---+ | | | +---+---+ documented in this encounter
--- OUTSIDE RECORDS SUMMARY | ~2019-10-30 | XMS | Encounter Summary ---
Demographics + + + | Address | [address] | | | [place] [address] | + + + | Home Phone [...] Author + + + | Author | [facility] | + + + | Organization | [facility] | + + + | Address | Unknown | + + + | Phone | Unavailable | + + + Support + + + + + | Name | Relationship | Address | Phone | + + + + + | Lolis Rodriguez | [address] | [address] | | | | | [address] | | | | | [address] | | + + + + + Care Team Providers + +------+ + | Care Search Engine Optimization Manager Name | Role | Phone | [...] [place] | | | | | | [phone] | | | +--------+ + + + [...] documented as of this encounter Miscellaneous Notes Scan - Kenny Faculty - 09/15/2013 2:57 PM PDTElectronically signed by Faculty Other at 2:57 PM PDTScan - Kenny Faculty - 09/15/2013 2:57 PM PDT documented in this encounter Plan of Treatment Not on filedocumented as of this encounter Visit Diagnoses Not on filedocumented in this encounter"
--- OUTSIDE RECORDS SUMMARY | ~2019-10-30 | XMS | Encounter Summary ---
Demographics + + + | Address | [address] | | | [place] [address] | + + + | Home Phone | | + + + | Preferred Language | Unknown | + + + | Marital Status | Single | + + + | Baptism Affiliation | Unknown | + + + | Race | White | + + + | Ethnic Group | Not or | + + + Author + + + | Author | [facility] | + + + | Organization | [facility] | + + + | Address | Unknown | + + + | Phone | Unavailable | + + + Support + + + + + | Name | Relationship | Address | Phone | + + + + + | Lolis Rodriguez | SCOTTY | [address] | | | | | [address] | | | | | [address] | | + + + + + Care Team Providers + +------+ + | Care Magnet Maker Name | Role | Phone | [...] | | | postprocedur | LEGACY | [place] | | | | | al | MEDICAL | [address] | | | | | status(V45.8 | GROUP | [place], | | | | | 9) | [place] | [place], [place] | | | | | Procedures | [address] | [address] | | | | | [place] | [address] | Phone: | | | | | LABS | [address] | [phone] | | | | | | [place], [place] | Fax: | | | | | | [address] | [phone] | | | | | | Phone: | | | | | | | [phone] | | | | | | | Fax: | | | | | | | [phone] | | +--------+--------+ + + + + Encounter Details +--------+ + + + + | Date | Type | Department | Care Team | Description | +--------+ + + + + | 03/09/ | [facility] | [place] [facility] | [facility] | | 2016 | l Support | [facility] [place] | [address] | ([facility]) | | | Staff | [address], | [address] [place], [place] | | | | | [place], [place] | [address] | | | | | [address] | [phone] | | | | | [phone] | | | | | | | Sree Jain Ma | | | | | | Schedule [place], | | | | | | [place] [address] | | +--------+ + + + + [...]
--- OUTSIDE RECORDS SUMMARY | ~2019-10-30 | XMS | Encounter Summary ---
Demographics + + + | Address | [address] | | | [place] [address] | + + + | Home Phone | | + + + | Preferred Language | Unknown | + + + | Marital Status | Single | + + + | Mormonism Affiliation | Unknown | + + + [...] Team Providers + +------+ + | Care Manual Winder Name | Role | Phone | + [...] | Pre-Op | | 2019 | | [place] [address] | [address] | | | | | BLVD [place], [place] | | | | | | [address] | | | | | | [phone] | | | +--------+ + + + [...] Miscellaneous Notes Telephone Encounter - Armida Cummins [place] - 05/17/2019 3:11 PM PDTTried ca lling patient in regards to pre op appt on 05/30/2019 and let her know we are cancelling evelin t & sx until further notice due to everything going on & when we get the ok to schedule yosef ents we will call in the order we had the patients scheduled. Tried calling on home # and it was disconnected, tried calling mobile & went to & mailbo x was full I could not leave . documented in this encounter Plan of Treatment Not on filedocumented as of this encounter Visit Diagnoses Not on filedocumented in this encounter"
--- OUTSIDE RECORDS SUMMARY | ~2019-10-30 | XMS | Encounter Summary ---
Demographics + + + | Address | [address] | | | [place] [address] | + + + | Home Phone | | + + + | Preferred Language | Unknown | + + + | Marital Status | Single | + + + | Baptism Affiliation | Unknown | + + + | Race | White | + + + | Ethnic Group | Unknown | + + + Author + + + | Author | [facility] | | | and [place] | + + + | Organization | [facility] [...] Providers + +------+ + | Care Clinical Laboratory Director Name | Role | Phone | + +------+ + | Mahendra Merchant | PCP | | + +------+ + Reason for Visit + +--------+ + | Reason | Onset | Comments | | | Date | | + +--------+ + | Medication Question | 05/01/ | | | | 2020 | | + +--------+ + Encounter Details +--------+ + + + + | Date | Type | Department | Care Team | Description | +--------+ + + + + | 05/01/ | Telephone | [facility] | Wendy Stoll, | Medication Question | | 2019 | | [address] | [place] | | | | | [place] | | | | | | [address] | | | | | | [phone] | | | +--------+ + + + [...] this encounter Miscellaneous Notes Telephone Encounter - Wendy Stoll RN - 05/02/2019 3:41 PM PDTCall from patient. She s tates she is scheduled for surgery on 05/16. She states she can't handle the pain. She report s she can't handle the massive pain that she is in. She reports she can't eat and has been v omiting due to the pain. Patient states she has tried ibuprofen, tylenol, aspirin, flexeril, ice and heat and nothing is working. She reports no specific injury just progressively wors ening pain. She reports she is nearly bedridden at this point and has had to miss work becau se of the pain. She is wanting Dr. Munroe to prescribe something to get her to surgery. Sh e states even something to just take once in the morning and once at night so she can functi on at work and get some sleep. Preferred pharmacy: [facility] [place] documented in this en counter Plan of Treatment Not on filedocumented as of this encounter Visit Diagnoses Not on filedocumented in this encounter"
--- OUTSIDE RECORDS SUMMARY | ~2019-10-30 | XMS | Encounter Summary ---
Demographics + + + | Address | [address] | | | [place] [address] | + + + | Home Phone | | + + + | Preferred Language | Unknown | + + + | Marital Status | Single | + + + | Shinto Affiliation | Unknown | + + + | Race | White | + + + | Ethnic Group | Unknown | + + + Author + + + | Author | [facility] | | | and [place] | + + + | Organization | [facility] | | | [...] Team Providers + +------+ + | Care Turning And Beading Machine Operator Name | Role | Phone | + +------+ + | Mahendra Merchant | PCP | | + +------+ + Reason for Visit + +--------+ + | Reason | Onset | Comments | | | Date | | + +--------+ + | Follow-up | 08/11/ | | | | 2020 | | + +--------+ + Encounter Details +--------+ + + + + | Date | Type | Department | Care Team | Description | +--------+ + + + + | 08/11/ | Telephone | [facility] | Armida Cummins, | Follow-up | | 2019 | | [place] [address] [place] [address] | Basket Weaver | | | | | [place], [place] | | | | | | [address] | | | | | | [phone] | | | +--------+ + + + [...] Miscellaneous Notes Telephone Encounter - Armida Cummins Basket Weaver - 08/12/2019 3:48 PM PDTReturned patient call to f/u on request hip brace, I let her know that per dr. Munroe: before tryi ng a brace she should try some tight bicycle type shorts and see if that helps. If not the re are braces, but they are cumbersome and uncomfortable and unlikely to be of much help. Patient acknowledged she understood. I also let her know if she had questions, concerns she is welcome to call back.Electronically signed by Ayaz Le at 06/1 10/2019 3:52 PM PDTdocumented in this encounter Plan of Treatment Not on filedocumented as of this encounter Visit Diagnoses Not on filedocumented in this encounter"
--- OUTSIDE RECORDS SUMMARY | ~2019-10-30 | XMS | Encounter Summary ---
Demographics + + + | Address | [address] | | | [place] [address] | + + + | Home Phone | | + + + | Preferred Language | Unknown | + + + | Marital Status | Single | + + + | Holiness Affiliation | Unknown | + + + [...] [address] | | | | | [address] | | | | | [address] | | + + + + + Care Team Providers + +------+ + | Care Tobacco Primer Machine Operator Name | Role | Phone [...] as of this encounter Progress Notes Interface, Dust Collector Treater In - 08/24/2005 3:03 AM PDTCLINIC DATE: [...] in 6 weeks. James Boss M.D., M.P.H. [facility] / [id number] / [id number] / [id number] / Tdocumented in this encounter Plan of Treatment Not on filedocumented as of this encounter Visit Diagnoses Not on filedocumented in this encounter
--- OUTSIDE RECORDS SUMMARY | ~2019-10-30 | XMS | Clinical Summary ---
Demographics + + + | Address | [address] | | | [place] [address] | + + + | Home Phone [...] [place] | | | | | [address] | | + + + + + Care Team Providers + +------+ + | Care Flash Ranging Crewmember Name | Role | Phone | + +------+ + | James Horne MD | PCP | | + +------+ + Source Comments SHARON is fully live on both [facility] and [facility] In[facility] Allergies + + + + + + [...] | 04/1 | | Activ | | [id number] | needed. | | | 1/20 | [...] on file | | + + + Last Filed Vital Signs + [...] Health Maintenance | Due Date | Last | Comments | | | | Done | | + + + + + | Mammogram | | | | | | 1 | | | + + + + + | Influenza (Flu) | | 11/28/19 | | | vaccination (#1) | 0 | 15, | | | | | 11/24/19 | | | | | 14, | | | | | 01/04/20 | | | | | 13 | | + + + + + | Pneumococcal | Completed | 01/15/20 | | | vaccination | | 13 | | + + + + + [...] + +--------+ | MEDICARE | MEDICA | [id number] | 10/25/19 | [phone] | [address] | Medica | | | RE A & | | 01-Pre | 1 | 2 | re | | | B | | sent | | [place] | | | | | | | | [address] | | + +--------+ +--------+ + +--------+ + +--------+ +--------+ + + | Guarantor Name | Accoun | Relation to | Date | Phone | Billing Address | | | t Type | Patient | of | | | | | | | | | | + +--------+ +--------+ + + | Laury Crockett | Person | Self | [birth year] | [address] | | | al/Fam | | 1961 | [phone] | [place] | | | de | | | 9 (Home) | [address] | + +--------+ +--------+ + +
--- OUTSIDE RECORDS SUMMARY | ~2019-10-30 | XMS | Encounter Summary ---
Demographics + + + | Address | [address] | | | [place] [address] | + + + | Home Phone | | + + + | Preferred Language | Unknown | + + + | Marital Status | Single | + + + | Zoroastrianism Affiliation | Unknown | + + + [...] [address] | | | | | [address], [place] | | | | | [address] | | + + + + + Care Team Providers + +------+ + | Care Transfer Machine Operator Name | Role | Phone [...] | + +--------+ + + + | BRANDIN ROBERTO | Routin | 06/12/1999 | | Results [...] | + + + + + | [facility] | [address] | [place] [address] | | | LABORATORY | | | [...] | + + + + + | [facility] | [address] | [place] [address] | | | LABORATORY | | | [...] | + + + + + | [facility] | [address] | [place] [address] | | | LABORATORY | | | [...] | + + + + + | [facility] | [address] | [place] [address] | | | LABORATORY | | | [...] + + + | TSH value falls between the | | | upper end of th normal range | | | and the hypothyroid range. | | + + + + + + + + | Performing | Address | City/State/Zipcode | Phone Number | | Organization | | | | + + + + + | [facility] | [address] | [place] [address] | | | LABORATORY | | | [...] | + + + + + | [facility] | [address] | [place] [address] | | | LABORATORY | | | [...] + + + | [facility] | [address] | [place] [address] | | | LABORATORY | | | [...] [facility] | | | | PT INR Therapeutic | | DEPARTMENT | | | | ranges for full | | OF | | | | anticoagulation: | | PATHOLOGY | | | | INR for | | | | | | Venous Thromboembolism | | | | | | | | | | | | (2.0-3.0)INR | | | | | | INR for most | | | | | | patients with mech. | | | | | | valves (2.5-3.5)INR | | | | + + + + + + + + | Specimen | + + | | + + + + + + + | Performing | Address | City/State/Zipcode | Phone Number | | Organization | | | | + + + + + | [facility] | [address] | [place] [address] | | | PATHOLOGY | [address] | | | + + + + + | [facility] | [address] [place] [address] | [place] [address] | | | PATHOLOGY | [address] | | | + + + + + BRANDIN ROBERTO (06/12/1999 11:17 AM PDT) + + + + + + | Component | Value | Ref Range | Performed | Pathologist | | | | | At | Signature | + + + + + + | INR | 0.92 (L)Comment: | 0.98 - 1.08 INR | [facility] | | | | PT INR Therapeutic | | DEPARTMENT | | | | ranges for full | | OF | | | | anticoagulation: | | PATHOLOGY | | | | INR for | | | | | | Venous Thromboembolism | | | | | | | | | | | | (2.0-3.0)INR | | | | | | INR for most | | | | | | patients with mech. | | | | | | valves (2.5-3.5)INR | | | | + + + + + + + + | Specimen | + + | | + + + + + + + | Performing | Address | City/State/Zipcode | Phone Number | | Organization | | | | + + + + + | [facility] | [address] | [place] [address] | | | PATHOLOGY | [address] | | | + + + + + | [facility] | [address] | [place] [address] | | | PATHOLOGY | [address] | | | + + + + + documented in this encounter Visit Diagnoses Not on filedocumented in this encounter"
--- OUTSIDE RECORDS SUMMARY | ~2019-10-30 | XMS | Encounter Summary ---
Demographics + + + | Address | [address] | | | [place] [address] | + + + | Home Phone | | + + + | Preferred Language | Unknown | + + + | Marital Status | Single | + + + | Zoroastrianism Affiliation | Unknown | + + + | Race | White | + + + | Ethnic Group | Unknown | + + + Author + + + | Author | [facility] | | | and [place] | + + + | Organization | [facility] | | | [...] Team Providers + +------+ + | Care Nurse Chemical Dependency Name | Role | Phone | + +------+ + | Gonzales Rivera NP | PCP | | + +------+ + Reason for Visit + +--------+ + | Reason | Onset | Comments | | | Date | | + +--------+ + | Service Request | 04/07/ | | | | 2020 | | + +--------+ + Encounter Details +--------+ + + + + | Date | Type | Department | Care Team | Description | +--------+ + + + + | 04/07/ | Telephone | [facility] | Armida Cummins, | Service Request | | 2019 | | [address] [facility] [address] | [address] | | | | | [place] | | | | | | [address] | | | | | | [phone] | | | +--------+ + + + [...] Miscellaneous Notes Telephone Encounter - Armida Cummins Timber Robber - 04/07/2019 4:23 PM PSTLet yosef ent know that I will fax over her RX request for Trapeze Bar, patient stated she wanted me t o fax it to [place] to [facility] . Also, gave me the phone number [phone]. documented in this encounter Plan of Treatment Not on filedocumented as of this encounter Visit Diagnoses Not on filedocumented in this encounter"
--- OUTSIDE RECORDS SUMMARY | ~2019-10-30 | XMS | Encounter Summary ---
Demographics + + + | Address | [address] | | | [place] [address] | + + + | Home Phone | | + + + | Preferred Language | Unknown | + + + | Marital Status | Single | + + + | Worship Affiliation | Unknown | + + + | Race | White | + + + | Ethnic Group | Unknown | + + + Author + + + | Author | [facility] | | | and [place] | + + + | Organization | [facility] | | | [...] Providers + +------+ + | Care Business Excellence Leader Name | Role | Phone | + +------+ + | Gonzales Rivera NP | PCP | | + +------+ + Reason for Visit + +--------+ + | Reason | Onset | Comments | | | Date | | + +--------+ + | Follow-up | 04/07/ | regarding patient requesting jackson bar | | | 2020 | | + +--------+ + Encounter Details +--------+ + + + + | Date | Type | Department | Care Team | Description | +--------+ + + + + | 04/07/ | Telephone | [facility] | Armida Cummins, | Follow-up (regarding | | 2020 | | [facility] [facility] [address] | [address] | patient requesting | | | | [place], [place] | | [address]son [address]es) | | | | [address] | | | | | | [phone] | | | +--------+ + + + [...] Notes Telephone Encounter - Gi Simmons - 04/07/2019 2:50 PM PSTDrMarkus Munroe patient ca lled back with some information: [facility] fax number is and phone numb er . 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 Please call patient at elephone Encounter - Armida Leslie, [place] - 04/07/2019 1:27 PM PSTTried calling patient to let her know that her RX request for a Trapeze Bar will be ready for her to grape picker at front with o ne of the jackhammer operator girls. Could not leave because mailbox was full. documented in this encounte r Plan of Treatment Not on filedocumented as of this encounter Visit Diagnoses Not on filedocumented in this encounter"
--- OUTSIDE RECORDS SUMMARY | ~2019-10-30 | XMS | Encounter Summary ---
Demographics + + + | Address | [address] | | | [place] [address] | + + + | Home Phone | | + + + | Preferred Language | Unknown | + + + | Marital Status | Single | + + + | Sikh Affiliation | Unknown | + + + | Race | White | + + + | Ethnic Group | Unknown | + + + Author + + + | Author | [facility] | | | and [place] | + + + | Organization | [facility] | | [...] Team Providers + +------+ + | Care Carpenter/Labor Name | Role | Phone | + +------+ + | Mahendra Merchant | PCP | | + +------+ + Reason for Visit + +--------+ + | Reason | Onset | Comments | | | Date | | + +--------+ + | Lab Results | 07/31/ | | | | 2020 | | + +--------+ + Encounter Details +--------+ + + + + | Date | Type | Department | Care Team | Description | +--------+ + + + + | 07/31/ | Telephone | [facility] | Armida Cummins, | Lab Results | | 2019 | | [address] | Fats And Oils Loader | | | | | [place], [place] | | | | | | [address] | | | | | | [phone] | | | +--------+ + + + [...] Miscellaneous Notes Telephone Encounter - Armida Cummins Fats And Oils Loader - 08/01/2019 10:40 AM PDTTried ca lling patient per dr. Munroe to let her know that because her A1C is above 7 we are having to cancel per sx date. Patient may f/u in 3 months to see how she is doing, patient needs her A1C to be below 7 and we will need an updated lab work PRIOR to scheduling to verify. Di e to infection rate too high. Patient was unavailable & mailbox was full. I was not able to leave . documented in this encounter Plan of Treatment Not on filedocumented as of this encounter Visit Diagnoses Not on filedocumented in this encounter"
--- OUTSIDE RECORDS SUMMARY | ~2019-10-30 | XMS | Encounter Summary ---
Demographics + + + | Address | [address] | | | [place] [address] | + + + | Home Phone [...] + + + | Author | [facility] | | | and [place] | + + + | Organization | [facility] | | | and [...] Team Providers + +------+ + | Care Dental Professional Name | Role | Phone | + +------+ + | Mahendra Merchant | PCP | | + +------+ + Reason for Visit +--------+--------+ + | Reason | Onset | Comments | | | Date | | +--------+--------+ + | Other | 07/25/ | Covid 19 screening | | | 2020 | | +--------+--------+ + Encounter Details +--------+ + + + + | Date | Type | Department | Care Team | Description | +--------+ + + + + | 07/25/ | Telephone | [facility] | Dean Munroe, | Other (Covid 19 | | 2020 | | [address] [address] | screening) | | | | [place], [place] | [place], [place] | | | | | [address] | [address] | | | | | [phone] | | | +--------+ + + + [...] this encounter Miscellaneous Notes Telephone Encounter - Mariposa Johnston - 07/26/2019 2:30 PM PDTProactive screening for [facility] office visit to help ensure the clinic environment remains a safe place to receive car e. 1. Patient reports the following symptoms and/or exposure on the epidemic risk screen: ? Fever greater than 100.4 F?: no ? New onset (within the last 14 days) cough?: no ? New onset (within the last 14 days) shortness of breath?: no ? New onset (within the last 14 days) loss of taste or smell?: no ? Close contact with someone who has been diagnosed with COVID-19?: no The patient reported no symptoms or exposure and proceeded with proactive screening process . 2. Have you or someone you are in close contact with been tested for COVID-19?: No. Okay to see patient in clinic per scheduling guidelines, proceeded to question #3 If YES, answer the following questions: ? Was the reason for testing for pre-produce and have there were no symptoms? YES (If YES, proceed to step 3) ? Has it been ten days since your symptoms first started?: ? Have you been fever free for 72 hours without taking fever reducing medications?: ? Have you experienced at least 3 days of improvement in your respiratory symptoms (e.g. co ugh, shortness of breath)?: ? Can patient be seen in clinic?: . 3. Does the patient have MyChart Access?: No. Helped get the patient MyChart access and encouraged use of the E-Check In feature. 4. Is the patient allowed a visitor per policy?: No. Please be aware that you will be asked these same questions when you arrive at the clinic. If you have any changes in your symptoms between now and your visit, please call us so we c an get you scheduled for an alternative visit before you arrive at the clinic. For your safety and the safety of others, we ask that if you are being seen in person at on e of our clinics you arrive wearing a mask. Hand washing is galo to keeping our clinic a safe place to receive care. While you are in ou r clinics you will be asked to perform hand washing at different intervals throughout your v isit. While you are in the clinic 6ft distancing is required, please ensure you look for the 6ft floor markers and adhere to distancing. Visitor restrictions remain in place following CDC guidance. Only minimal exceptions will be allowed. If you arrive with a visitor they may be asked to wait in the car during your v isit. documented in this encou nter Plan of Treatment Not on filedocumented as of this encounter Visit Diagnoses Not on filedocumented in this encounter"
--- OUTSIDE RECORDS SUMMARY | ~2019-10-30 | XMS | Encounter Summary ---
Demographics + + + | Address | [address] | | | [place] [address] | + + + | Home Phone [...] [address] | | | | | [address] | | | | | [address] | | + + + + + Care Team Providers + +------+ + | Care Fuel Cell Designer Name | Role | Phone | [...] | | | | | [place], | | | | | | [place] [address] | | | +--------+ + + + [...]
--- OUTSIDE RECORDS SUMMARY | ~2019-10-30 | XMS | Encounter Summary ---
Demographics + + + | Address | [address] | | | [place] [address] | + + + | Home Phone [...] Team Providers + +------+ + | Care Bilingual Spanish Inbound Sales Name | Role | Phone | + [...] + + | // | Telephone | [facility] | Dean Munroe, | Surgery Appointment | | 2019 | | [address] | | | | | [place], [place] | [place], [place] | | | | | [address] | [address] | | | | | [phone] | | | +--------+ + + + [...]
--- OUTSIDE RECORDS SUMMARY | ~2019-10-30 | XMS | Encounter Summary ---
Demographics + + + | Address | [address] | | | [place] [address] | + + + | Home Phone | | + + + | Preferred Language | Unknown | + + + | Marital Status | Single | + + + | Sikhism Affiliation | Unknown | + + + | Race | White | + + + | Ethnic Group | Unknown | + + + Author + + + | Author | [facility] | | | and [place] | + + + | Organization | [facility] | | [...] Team Providers + +------+ + | Care Coke Loader Name | Role | Phone | + [...] + | 12/01/ | Telephone | [facility] | Rigo Muniz | Other | | 2019 | | ORTHOPEDIC SURGERY | [address] | | | | | [address] | [facility] | | | | | [place], [place] | [place] [address] | | | | | [address] | [phone] | | | | | [phone] | | | +--------+ + + + [...] Rigo Muniz. elephone Encounter - Meghan-Patrizia Flores, Certified Coatings Inspector - 12/02/2018 4:45 PM PDTCalled patient LVM [...] extremely painful. Pl ease advise and call [phone] signed by Soo Sanchez at 12/01/2018 2:5 0 PM PDTdocumented in this encounter Plan of Treatment Not on filedocumented as of this encounter Visit Diagnoses Not on filedocumented in this encounter
--- OUTSIDE RECORDS SUMMARY | ~2019-10-30 | XMS | Encounter Summary ---
Demographics + + + | Address | [address] | | | [place] [address] | + + + | Home Phone [...] Team Providers + +------+ + | Care Funeral Home Manager Name | Role | Phone | [...] | | [address] [place] | [place] [address] | | | | | [place] [address] | | | | | | [phone] | | | +--------+ + + + [...]
--- OUTSIDE RECORDS SUMMARY | ~2019-10-30 | XMS | Encounter Summary ---
Demographics + + + | Address | [address] | | | [place] [address] | + + + | Home Phone [...] + + + | Lolis Rodriguez | [address] | [address] | | | | | [place] | | | | | [address] | | + + + + + Care Team Providers + +------+ + | Care Software Quality Assurance Analyst Name | Role | Phone | [...] | | genital | [address] | [address] | | | | | prolapse, | Hospital | [facility] | | | | | unspecified | [address] | [address] | | | | | Procedures | [address] | [place], [place] | | | | | [place] NEW | [address] | [address] | | | | | PATIENT | Demian, | Phone: | | | | | [place] | [place] [address] | [phone] | | | | | EST PATIENT | Phone: | Fax: | | | | | [place] | [phone] | [phone] | | | | | | Fax: | | | | | | | [phone] | | +--------+--------+ + + + + Encounter Details +--------+---------+ + + + | Date | Type | Department | Care Team | Description | +--------+---------+ + + + | 08/18/ | Office [facility] | Clair Kay MD | Pelvic pain (Primary | | 2017 | Visit | [facility] | [address] | Dx); Pain of right | | | | [address] | [address] | hip joint; Mixed | | | | [address] | [place], [place] | incontinence urge | | | | Pavilion, 7th floor | [address] | and stress | | | | [place], [place] | [phone] | (male)(female) | | | | [address] | | | | | | [phone] | | | +--------+---------+ + + + [...] to decrease the ne rve sensitivities. 2. [place] - please stop by [employer] on your way out of town to pick up attendant "astroglide" for lubrication. 3. Follow up - please make an appointment in 3 months after starting PT. Please sign up for MyChart so we can communicate about your gabapentin dosing. I have included below some information about pelvic muscle pain. Clair Brown MD Industrial Hygenist Division of Urogynecology and Reconstructive Pelvic Surgery Department of Quality Engineering Manager [facility] Levator Myalgia The muscles along the [...] activities or seeing a sp orts medicine/ orthopedic nurse practitioner. & Chronic Pain Levator myalgia can be associated with chronic pain. In certain cases we will recommend a house painter helper to help with your care. documented in [...] on the patient intake questionnaire (scanned into [employer]) and with the patient. The summary is [...] be found in the scanned documents in [employer]. They have also been entered into rele vant carson of the [employer] database. Past Medical History: Diagnosis Date Abdominal pain, right upper quadrant Asthma 1980 Bipolar disorder ([facility]) 1998 Chronic fatigue COPD (chronic obstructive pulmonary disease) ([facility]) Diabetes ([facility]) Disorders of sacrum Diverticulitis Elevated liver enzymes 1999 Esophageal hiatal hernia 1998 Fatty liver Fibromyalgia Gallstones 1994 GERD (gastroesophageal reflux disease) Hemorrhoids Hepatomegaly 1999 Hypertriglyceridemia Hypothyroidism Lower back pain Lumbosacral spondylosis without myelopathy Migraine Myocardial infarct ([facility]) Neuralgia, neuritis, and radiculitis, unspecified Opioid type dependence Other and unspecified disc disorder of lumbar region Pain in joint, pelvic region and thigh PUD (peptic ulcer disease) Seasonal allergies Spasm of muscle SVT (supraventricular tachycardia) ([facility]) 1980 Thoracic spondylosis without myelopathy Past Surgical [...] by mouth once daily., Disp: , Rfl: oojpouph-sunvhrbwa-lrelbeiovxafrt 3.5-10,000-1 mg/mL-unit/mL-% otic solution, Instill in e [...]
--- OUTSIDE RECORDS SUMMARY | ~2019-10-30 | XMS | Encounter Summary ---
Demographics + + + | Address | [address] | | | [place] [address] | + + + | Home Phone [...] Team Providers + +------+ + | Care Marshmallow Runner Name | Role | Phone | + [...] Question | | 2019 | | [facility] [address] | Peer Counselor | | | | | [place] | | | | | | [address] | | | | | | [phone] | | | +--------+ + + + [...] Miscellaneous Notes Telephone Encounter - Armida Cummins, Peer Counselor - 05/04/2019 11:29 AM PDTPatient returned call [...]
--- OUTSIDE RECORDS SUMMARY | ~2019-10-30 | XMS | Encounter Summary ---
Demographics + + + | Address | [address] | | | [place] [address] | + + + | Home Phone [...] + + + | Author | [facility] | + + + | Organization | [facility] | + + + | Address | Unknown | + + + | Phone | Unavailable | + + + Support + + + + + | Name | Relationship | Address | Phone | + + + + + | Lolis Rodriguez | [address] | | | | | [address] | | | | | [address] | | + + + + + Care Team Providers + +------+ + | Care Artificial Stone Applicator Name | Role | Phone | + [...] | | | | | Khadra [place], | | | | | | [place] [address] | | | +--------+ + + + [...]
--- OUTSIDE RECORDS SUMMARY | ~2019-10-30 | XMS | Encounter Summary ---
Demographics + + + | Address | [address] | | | [place] [address] | + + + | Home Phone [...] Author | [facility] | | | and [place] | + + + | Organization | [facility] | | [...] Providers + +------+ + | Care Manager Strategy Name | Role | Phone | + [...] Cancel Surgery | | 2019 | | [address] | Help Desk Administrator | | | | | [place], [place] | | | | | | [address] | | | | | | [phone] | | | +--------+ + + + [...] - Armida Cummins Medical Assistant - 05/10/2019 10:21 AM PDTTried to call patient to let her know we need to cancel & reschedule her sx scheduled for 05/17/2019 . Tried calling patient cell, there was no answer & Vm was full not able to leave message. Zaheer alled home phone & was disconnected. Called emergency contact & left VM message to call back . docum ented in this encounter Plan of Treatment Not on filedocumented as of this encounter Visit Diagnoses Not on filedocumented in this encounter"
--- OUTSIDE RECORDS SUMMARY | ~2019-10-30 | XMS | Encounter Summary ---
Demographics + + + | Address | [address] | | | [place] [address] | + + + | Home Phone [...] Team Providers + +------+ + | Care Training Engineer Name | Role | Phone | [...] + + | 08/09/ | Telephone | [facility] | Dean Munroe, | Surgery Appointment | | 2019 | | [address] | [address] | | | | | [place], [place] | [place], [place] | | | | | [address] | [address] | | | | | [phone] | | | +--------+ + + + [...]
--- OUTSIDE RECORDS SUMMARY | ~2019-10-30 | XMS | Encounter Summary ---
Demographics + + + | Address | [address] | | | [place] [address] | + + + | Home Phone | | + + + | Preferred Language | Unknown | + + + | Marital Status | Single | + + + | Catholic Affiliation | Unknown | + + + | Race | White | + + + | Ethnic Group | Unknown | + + + Author + + + | Author | [facility] | | | and [place] | + + + | Organization | [facility] | | [...] Team Providers + +------+ + | Care Greenhouse Worker Name | Role | Phone | + +------+ + | Mahendra Merchant | PCP | | + +------+ + Reason for Visit +--------+--------+ + | Reason | Onset | Comments | | | Date | | +--------+--------+ + | Other | 05/02/ | | | | 2020 | | +--------+--------+ + Encounter Details +--------+ + + + + | Date | Type | Department | Care Team | Description | +--------+ + + + + | 05/02/ | Telephone | [facility] | Wendy Stoll, | Other | | 2020 | | [facility] [address] | [address] | | | | | [address] [place] | | | | | | [address] | | | | | | [phone] | | | +--------+ + + + [...] Telephone Encounter - Wendy Stoll RN - 05/03/2019 9:45 AM PDTCall to patient to oj mccollum per provider. Phone number is temporarily not in service. elephone Encounter - Wendy Stoll RN - 05/03/2019 9:44 AM PDT----- Message from Dean Munroe MD sent at 05/02/2019 5:07 PM PDT ----- Unfortunately I do not have any other prescription medicaitons to offer. Alternative such as Tumeric or CBD may be useful. I only prescribe stronger pain medications post operativel y and only for a short period of time. ----- Message ----- From: Wendy Stoll, RN Sent: 05/02/2019 3:45 PM PDT To: Dean Munroe MD Patient is scheduled for surgery on 05/16. Patient called and reported she is in significant pain, to the point she is nearly bedridden and missing work. She denies any injury or traum a. She states the pain has been progressively getting worse. She has tried ice, heat, aspiri n, ibuprofen and tylenol for pain with no relief. She is wanting to know if you can prescrib e something that she can take twice daily, once in the morning and once at night, so she can function at work and get sleep. Please review. Thanks. Preferred pharmacy: [facility] documented in this en counter Plan of Treatment Not on filedocumented as of this encounter Visit Diagnoses Not on filedocumented in this encounter"
--- OUTSIDE RECORDS SUMMARY | ~2019-10-30 | XMS | Encounter Summary ---
Demographics + + + | Address | [address] | | | [place] [address] | + + + | Home Phone [...] Team Providers + +------+ + | Care Switchbox Assembler Name | Role | Phone | [...] [address] | | | | | [address] | [place], [place] | | | | | [address] | [address] | | | | | [phone] | | | +--------+ + + + [...] the mean time. Please contact patient at [phone] signed by Michelle Garcia at 05/03/2019 10:14 AM PDTdocumented in t his encounter Plan of Treatment Not on filedocumented as of this encounter Visit Diagnoses Not on filedocumented in this encounter"
--- OUTSIDE RECORDS SUMMARY | ~2019-10-30 | XMS | Encounter Summary ---
Demographics + + + | Address | [address] | | | [place] [address] | + + + | Home Phone [...] Team Providers + +------+ + | Care Waterway Traffic Checker Name | Role | Phone | + [...] of left | [place] | [place], [place] | | | | | hip | [place], | [address] | | | | | Procedures | [place] [address] | Phone: | | | | | [facility] | Phone: | [phone] | | | | | | [phone] | Fax: | | | | | | Fax: | [phone] | | | | | | [phone] | | + + + + + [...] | Pain in | Sharron Zaheer, | [place] [address] | | | | | left hip | PA-C [address] | | | | | Other | [address] | [place], [place] | | | | | chronic pain | AVE | [address] | | | | | | [place], | Phone: | | | | | | [place] [address] | [phone] | | | | | | Phone: | Fax: | | | | | | [phone] | [phone] | | | | | | Fax: | | | | | | | [phone] | | + +--------+ + + + [...] osteoarthritis of | | | | BLVD [place], [place] | [place], [place] | left hip (Primary | | | | [address] | [address] | Dx) | | | | [phone] | | | +--------+---------+ + + + [...] different fr om the original. 07/26/2019 Email Address: .[email or web address] Chief Complaint Chief Complaint Patient presents with [...] into the lungs., Disp: , Rfl: Aspirin Buf,KrYqma-GxJlkp-SfI, 81 MG TABS, Take 81 mg by mouth., Disp: , Rfl: atorvaSTATin (LIPITOR) 80 MG tablet, , Disp: , Rfl: Eawpknl-Agtwrbmsh-Qllepvb D 185-50-100 MG-MG-UNIT CAPS, Calcium Magnesium + [...] subsidence. The left hip has severe end-stage ubyn-wu-uism osteoarthritis with subchondral sclerosis and cysts on both the femor al and acetabular side. There is also marginal osteophyte formation Assessment and Plan ICD-10-CM ICD-9-CM 1. Primary osteoarthritis of left hip M16.12 715.15 Case Request - [place]/ENDO/ASC/OB: ARTHROPL ASTY HIP Ambulatory Referral to [facility] Physical Therapy 58-year-old female with severe end-stage [...] Munroe MD documented in this e ncounter H&P Notes Dean Munroe MD - 07/26/2019 2:40 PM PDTFormatting of this note might be different fr om the original. 07/26/2019 Email Address:[email or web address] Chief Complaint Chief Complaint Patient presents with [...] into the lungs., Disp: , Rfl: Aspirin Buf,YfTogz-ObPidf-XhT, 81 MG TABS, Take 81 mg by mouth., Disp: , Rfl: atorvaSTATin (LIPITOR) 80 MG tablet, , Disp: , Rfl: Sloqzoi-Aeowqoloq-Femxmtn D 185-50-100 MG-MG-UNIT CAPS, Calcium Magnesium + [...] subsidence. The left hip has severe end-stage wzpm-tf-oaku osteoarthritis with subchondral sclerosis and cysts on both the femor al and acetabular side. There is also marginal osteophyte formation Assessment and Plan ICD-10-CM ICD-9-CM 1. Primary osteoarthritis of left hip M16.12 715.15 Case Request - [place]/ENDO/ASC/OB: ARTHROPL ASTY HIP Ambulatory Referral to [facility] Physical Therapy 58-year-old female with severe end-stage [...] Primary | Ordered: 07/27/2019 | | to [facility] Physical | Referral | e | osteoarthritis of | | | Therapy | | | left hip | | + + +--------+ + + documented as of this encounter Procedures + +--------+ + + + | Procedure Name | Priori | Date/Time | Associated Diagnosis | Comments | | | ty | | | | + +--------+ + + + | LABS - EXTERNAL SCAN | | 07/04/2019 | | Results for this | | | | 12:00 AM | | procedure are in the | | | | PDT | | results section. | + +--------+ + + + documented in this encounter Results LABS - EXTERNAL SCAN (07/04/2019 12:00 AM PDT) + + + | Narrative | Performed At | + + + | Ordered by an | | | unspecified provider. | | + + + documented in this encounter Visit Diagnoses + + | Diagnosis | + + | Primary osteoarthritis of left hip - Primary Primary localized osteoarthrosis, pelvic | | region and thigh | + + documented in this encounter
--- OUTSIDE RECORDS SUMMARY | ~2019-10-30 | XMS | Encounter Summary ---
Demographics + + + | Address | [address] | | | [place] [address] | + + + | Home Phone [...] | Author | [facility] | | | and [place] | + + + | Organization | [facility] | | [...] Team Providers + +------+ + | Care Inspector Canvas Products Name | Role | Phone | + +------+ + | Mahendra Merchant | PCP | | + +------+ + Reason for Visit + +--------+ + | Reason | Onset | Comments | | | Date | | + +--------+ + | Lab Results | 07/26/ | | | | 2020 | | + +--------+ + Encounter Details +--------+ + + + + | Date | Type | Department | Care Team | Description | +--------+ + + + + | 07/26/ | Telephone | [facility] | Armida Cummins, | Lab Results | | 2019 | | [address] | Criminal Defense Attorney | | | | | [place], [place] | | | | | | [address] | | | | | | [phone] | | | +--------+ + + + [...] Miscellaneous Notes Telephone Encounter - Armida Cummins Criminal Defense Attorney - 07/27/2019 1:48 PM PDTTried to call patient per dr. Munroe to let her know i have not received a fax with her A1C result s yet. Dr. Munroe would like patient to see if she can get them and/or faxed to us, we gregorio esquivel prior to sx. documented in this encounter Plan of Treatment Not on filedocumented as of this encounter Visit Diagnoses Not on filedocumented in this encounter"
--- OUTSIDE RECORDS SUMMARY | ~2019-10-30 | XMS | Encounter Summary ---
Demographics + + + | Address | [address] | | | [place] [address] | + + + | Home Phone | | + + + | Preferred Language | Unknown | + + + | Marital Status | Single | + + + | Gnosticism Affiliation | Unknown | + + + | Race | White | + + + | Ethnic Group | Unknown | + + + Author + + + | Author | [facility] | | | and [place] | + + + | Organization | [facility] | | | and [...] Team Providers + +------+ + | Care Evaporator Operator Molasses Name | Role | Phone | + [...] + + | 03/15/ | Office | [facility] | Rigo Muniz | Right hip pain | | 2019 | Visit | ORTHOPEDIC SURGERY | [address] | (Primary Dx); | | | | [address] [place] | [address] [place] | Primary | | | | [place], [place] | [place] [address] | osteoarthritis of | | | | [address] | [phone] | right knee; Primary | | | | [phone] | | osteoarthritis of | | | [...] [facility] Recommend that once she finds that she [...] program. This note was dictated using the [employer] voice recognition system. Minor errors in grammar [...]
--- OUTSIDE RECORDS SUMMARY | ~2019-10-30 | XMS | Encounter Summary ---
Demographics + + + | Address | [address] | | | [place] [address] | + + + | Home Phone [...] [address] | | | | | [address] [place] | | | | | [address] | | + + + + + Care Team Providers + +------+ + | Care Law Office Assistant Name | Role | Phone | + +------+ + | Mahendra Cash MD | PCP | | + +------+ + Encounter Details +--------+ + + + + | Date | Type | Department | Care Team | Description | +--------+ + + + + | 12/08/ | Document-Sc | Health Information | Unknown . | | | 2014 | anned | Services [address] | | | | | | [address] | | | | | | Mailcode: [id number] | | | | | | [facility] | | | | | | [place], [place] | | | | | | [address] | | | | | | [phone] | | | +--------+ + + + [...]
--- OUTSIDE RECORDS SUMMARY | ~2019-10-30 | XMS | Encounter Summary ---
Demographics + + + | Address | [address] | | | [place] [address] | + + + | Home Phone [...] [address] | | | | | [address] | | | | | [address] | | + + + + + Care Team Providers + +------+ + | Care Web Press Operator Helper Offset Name | Role | Phone | + [...] | | | postprocedur | LEGACY | [place] | | | | | al | MEDICAL | [address] | | | | | status(V45.8 | GROUP | [place], | | | | | 9) | [place] | [place], [place] | | | | | Procedures | [address] | [address] | | | | | [place] | [address] | Phone: | | | | | LABS | [address] | [phone] | | | | | | [place], [place] | Fax: | | | | | | [address] | [phone] | | | | | | Phone: | | | | | | | [phone] | | | | | | | Fax: | | | | | | | [phone] | | +--------+--------+ + + + + Encounter Details +--------+ + + + + | Date | Type | Department | Care Team | Description | +--------+ + + + + | 09/12/ | [facility] | [facility] | [place] Nurse | [facility] | | 2013 | l Support | [facility] [place] | [address] | ([facility]) | | | Staff | [address] [place], | [address] [place], [place] | | | | | [place], [place] | [address] | | | | | [address] | [phone] | | | | | [phone] | | | | | | | Sree [address]ain Ma | | | | | | Schedule [place], | | | | | | [place] [address] | | +--------+ + + + + [...] alert & oriented x 3. No ac cheesh-na distress, and mood & affect appropriate. Instructed [...]
--- OUTSIDE RECORDS SUMMARY | ~2019-10-30 | XMS | Clinical Summary ---
Demographics + + + | Address | [address] | | | [place] [address] | + + + | Home Phone [...] Team Providers + +------+ + | Care Gasoline Power Shovel Operator Name | Role | Phone | [...] 0 | | | Activ | | Amhqboz-Ackqjuctt-Vu | D | | | | | [...] | 01/1 | | Activ | | Buf,RkJrul-EgGwok-Uf | | | | 0/20 | | [...] | 90 | 0 | 06/2 | 09/2 | Activ | | (VITAMIN D2) 50 [...] automatically from request for surgery | | [id number] | + + + + + | [...] + + + + | Overview: Overview: [id number] Assessment & Plan: Colonoscopy | | procedure [...] + + | Overview: Overview: | | NC x 5; has stent; last angioplasty May [...] + + | 08/11/ | Telephone | Orthopedic Surgery | Armida Cummins, | Follow-up | | 2020 | | | [place] | | +--------+ + + + + | 08/10/ | Telephone | Orthopedic Surgery | Armida Cummins, | Follow-up (sx) | | 2019 | | | [place] | | +--------+ + + + + | 08/10/ | Telephone | Orthopedic Surgery | Armida Cummins, | Follow-up | | 2019 | | | [place] | | +--------+ + + + + | 08/09/ | Telephone | Orthopedic Surgery | Dean Munroe, | Surgery Appointment | | 2019 | | | MD | | +--------+ + + + + | 07/31/ | Telephone | Orthopedic Surgery | Armida Cummins, | Lab Results | | 2019 | | | [place] | | +--------+ + + + + [...] + + + + | Med Mgmt: Vit D | | | | | | 1 | | | + + + + + | Med Mgmt: eGFR | | | | | | 1 [...] +--------+ +---------+--------+ | MEDICARE | MEDICA | [id number] | 10/25/19 | [phone] | | Medica | | | RE | | 01-Pre | 5 | | re | | | PART A | | sent | | | | | | AND B | | | | | | + +--------+ +--------+ +---------+--------+ | MEDICARE | MEDICA | [id number] | 10/25/19 | [phone] | | Medica [...] de | | | 9 (Home) | [address] | + +--------+ +--------+ + + | Laury Crockett | Person | Self | [birth year] | [address] | | | al/Fam | | 1961 | [phone] | [address] [place], [place] | | | de | | | 9 (Home) | [address] | + +--------+ +--------+ + + | Laury Crockett | Person | Self | [birth year] | [address] | | | al/Fam | | 1961 | [phone] | [address] [place], [place] | | | de | | | 9 (Home) | [address] | + +--------+ +--------+ + + Advance Directives + + + + + | Type | Date Recorded | Patient | Explanation | | | | Ordinary Seaman | | + + + + + | Power of | | | | | Import Clerk | | | | + + + + + | Advance | 04/29/2019 10:34 | | no | | Directive | AM | | | + + + + +
--- OUTSIDE RECORDS SUMMARY | ~2019-10-30 | XMS | Encounter Summary ---
Demographics + + + | Address | [address] | | | [place] [address] | + + + | Home Phone [...] [address] | | | | | [address], [place] | | | | | [address] | | + + + + + Care Team Providers + +------+ + | Care Wedding Coordinator Name | Role | Phone | [...] | | | | | | Shi BAEZ | | | | | | JanesRETROGRADE | | | | | | CHOLANGIOGRAM: [...] | | + +---------+ + + | [facility] DEPARTMENT OF | | | | | RADIOLOGY | | | | + +---------+ + + documented in this encounter Visit Diagnoses Not on filedocumented in this encounter"
--- OUTSIDE RECORDS SUMMARY | ~2019-10-30 | XMS | Encounter Summary ---
Demographics + + + | Address | [address] | | | [place] [address] | + + + | Home Phone [...] Team Providers + +------+ + | Care Sole Rougher Name | Role | Phone | + +------+ + | Gonzales Rivera NP | PCP | | + +------+ + Encounter Details +--------+ + + + + | Date | Type | Department | Care Team | Description | +--------+ + + + + | 01/05/ | Orders Only | [facility] | Rigo Muniz | Bilateral hip pain | | 2018 | | ORTHOPEDIC SURGERY | [address] | (Primary Dx) | | | | [address] | [address] | | | | | [place] | [place] [address] | | | | | [address] | [phone] | | | | | [phone] | | | +--------+ + + + [...] | Routin | Bilateral hip pain | Expected: | | Views | | e | | 01/05/2018, Expires: | | | | | | 01/05/2019 | + +---------+--------+ + + documented as of this encounter Visit Diagnoses + + | Diagnosis | + + | Bilateral hip pain - Primary Pain in joint, pelvic region and thigh | + + documented in this encounter"
--- OUTSIDE RECORDS SUMMARY | ~2019-10-30 | XMS | Encounter Summary ---
Demographics + + + | Address | [address] | | | [place] [address] | + + + | Home Phone | | + + + | Preferred Language | Unknown | + + + | Marital Status | Single | + + + | Hoahaoism Affiliation | Unknown | + + + | Race | White | + + + | Ethnic Group | Unknown | + + + Author + + + | Author | [facility] | | | and [place] | + + + | Organization | [facility] | | [...] Team Providers + +------+ + | Care Fiscal Specialist Name | Role | Phone | [...] | | | | | primary | RIG OPERATOR [address] | [address] | | | | | osteoarthrit | [address] | | | | | is of knee | [place], | [place] | | | | | Bilateral | [address] | [address] Phone: | | | | | osteoarthrit | [place], | [phone] | | | | | is resulting | [place] [address] | Fax: | | | | | from hip | Phone: | [phone] | | | | | dysplasia | [phone] | | | | | | | Fax: | | | | | | | [phone] | | +--------+--------+ + + + + Encounter Details +--------+---------+ + + + | Date | Type | Department | Care Team | Description | +--------+---------+ + + + | 01/06/ | Office | [facility] | Rigo Muniz | Left knee pain, | | 2017 | Visit | ORTHOPEDIC SURGERY | [address] | unspecified | | | | [address] [place] | Anand Flores | chronicity (Primary | | | | [place], [place] | [place] [address] | Dx); Left hip pain; | | | | [address] | [phone] | Primary | | | | [phone] | | osteoarthritis of | | | [...] be differe nt from the original. ORTHOPEDICS [address] [place] [address] FAX: [phone] Name: Laury Crockett : 1960 Age: 57 [...] hip arthroplasty performed with she was in [place] over 4 years ago. No recent injuries [...] c view and hips reveals no clear facilities maintenance assistant of acute pathology, significant arthritis of the [...] l eft being worse. She does have [id number] apposition with prominent osteophyte formation is compartment [...] I would like her to follow[facility] for reexamination. Likely will receive [...] history and physical was dictated using the itsDapper voice recognition system. There may be minor [...]
--- OUTSIDE RECORDS SUMMARY | ~2019-10-30 | XMS | Encounter Summary ---
Demographics + + + | Address | [address] | | | [place] [address] | + + + | Home Phone [...] Team Providers + +------+ + | Care Office Manager Receptionist Name | Role | Phone | + +------+ + | Mahendra Merchant | PCP | | + +------+ + Reason for Visit + +--------+ + | Reason | Onset | Comments | | | Date | | + +--------+ + | Surgery Appointment | 05/08/ | | | | 2020 | | + +--------+ + Encounter Details +--------+ + + + + | Date | Type | Department | Care Team | Description | +--------+ + + + + | 05/08/ | Telephone | [facility] | Dean Munroe, | Surgery Appointment | | 2019 | | [address] | [address] | | | | | [place], [place] | [place], [place] | | | | | [address] | [address] | | | | | [phone] | | | +--------+ + + + [...] Notes Telephone Encounter - Gi Simmons - 05/09/2019 2:28 [address] PDTDr. Munroe patient ca lled and has an upcoming surgery on 05/17/19 and wants to speak to the MA about her issue. Maia cole call her back to discuss. 2 :30 PM PDTdocumented in this encounter Plan of Treatment Not on filedocumented as of this encounter Visit Diagnoses Not on filedocumented in this encounter"
--- OUTSIDE RECORDS SUMMARY | ~2019-10-30 | XMS | Encounter Summary ---
Demographics + + + | Address | [address] | | | [place] [address] | + + + | Home Phone [...] Team Providers + +------+ + | Care Shirt Hemmer Name | Role | Phone | + [...] + | 08/10/ | Telephone | [facility] | Armida Cummins, | Follow-up (sx) | | 2019 | | [address] | Field Technical Specialist | | | | | [place], [place] | | | | | | [address] | | | | | | [phone] | | | +--------+ + + + [...] Miscellaneous Notes Telephone Encounter - Armida Cummins, Field Technical Specialist - 08/11/2019 12:27 PM PDTReturned patient call [...] dr. Munroe.Electronically sign ed by Armida Cummins, Field Technical Specialist at 08/11/2019 12:31 PM PDTdocumented in this encoun ter Plan of Treatment Not on filedocumented as of this encounter Visit Diagnoses Not on filedocumented in this encounter"
--- OUTSIDE RECORDS SUMMARY | ~2019-10-30 | XMS | Encounter Summary ---
Demographics + + + | Address | [address] | | | [place] [address] | + + + | Home Phone [...] [address] | | | | | [place], [place] | | | | | [address] | | + + + + + Care Team Providers + +------+ + | Care Helicopter Engineer Name | Role | Phone | [...] as of this encounter Progress Notes Interface, Sliver Lap Machine Tender In - 01/14/2006 5:11 AM [facility] [place] [address] [address] or June 12, 1999 Marlon Freeman D.O. [facility] [address] [place] [address] RE: LAURY MIDDLETON MR #: [id number] Dear Dr. Freeman: I had the pleasure [...] three cardiac arteriograms. MEDICATIONS 1. Prilosec 2. [place]. 3. Accolate. 4. Evista. 4. Promethazine. 5. [...] attempt to obtain her ultrasound reports from [facility]. I am still entertaining the [...] Naun Carias M.D. HERI / LUIS EDUARDO [id number] / [id number] / [id number] / [id number] signed by Interface, Sliver Lap Machine Tender In at 01/14/2006 5:11 AM PSTdocume nted in this encounter Plan of Treatment Not on filedocumented as of this encounter Visit Diagnoses Not on filedocumented in this encounter"
--- OUTSIDE RECORDS SUMMARY | ~2019-10-30 | XMS | Encounter Summary ---
Demographics + + + | Address | [address] | | | [place] [address] | + + + | Home Phone | | + + + | Preferred Language | Unknown | + + + | Marital Status | Single | + + + | Caodaism Affiliation | Unknown | + + + | Race | White | + + + | Ethnic Group | Unknown | + + + Author + + + | Author | [facility] | | | and [place] | + + + | Organization | [facility] | | [...] Team Providers + +------+ + | Care C Java Developer Name | Role | Phone | + +------+ + | Mahendra Merchant | PCP | | + +------+ + Encounter Details +--------+ + + + + | Date | Type | Department | Care Team | Description | +--------+ + + + + | 05/09/ | Preadmit | [facility] | Dean Munroe, | Canceled (OTHER) | | 2020 | Visit | [facility] | MD [address] | | | | | CLINIC [address] | [place], [place] | | | | | [place], [place] | [address] | | | | | [address] | | | | | | [phone] | | | +--------+ + + + [...] and informed of needing to come to [facility] by self. Patient verbalizes understanding. documented in this encounter Plan of Treatment Not on filedocumented as of this encounter Visit Diagnoses Not on filedocumented in this encounter"
--- OUTSIDE RECORDS SUMMARY | ~2019-10-30 | XMS | Encounter Summary ---
Demographics + + + | Address | [address] | | | [place] [address] | + + + | Home Phone [...] + +------+ + | Care Adding Machine Servicer Name | Role | Phone | + [...] Cancel Surgery | | 2019 | | [address] | Manager Hris | | | | | [place], [place] | | | | | | [address] | | | | | | [phone] | | | +--------+ + + + [...]
--- OUTSIDE RECORDS SUMMARY | ~2019-10-30 | XMS | Encounter Summary ---
Demographics + + + | Address | [address] | | | [place] [address] | + + + | Home Phone [...] [place] | | | | | [address] | | + + + + + Care Team Providers + +------+ + | Care Coyote Hunter Name | Role | Phone | + [...] Care | | 2015 | Collaborati | [facility] | MD CLARISA CALLES | | | | ve Order | [address], | [place] [address] | | | | | [place], [place] | [address] | | | | | [address] | [address] [place], [place] | | | | | [phone] | [address] | | | | | | | [...]
--- OUTSIDE RECORDS SUMMARY | ~2019-10-30 | XMS | Encounter Summary ---
Demographics + + + | Address | [address] | | | [place] [address] | + + + | Home Phone [...] Team Providers + +------+ + | Care Dry Curer Name | Role | Phone | + [...] | | [place], [place] | [place] [address] | Dx) | | | | [address] | [phone] | | | | | [phone] | | | +--------+ + + + [...]
--- OUTSIDE RECORDS SUMMARY | ~2019-10-30 | XMS | Encounter Summary ---
Demographics + + + | Address | [address] | | | [place] [address] | + + + | Home Phone [...] | Author | [facility] | | | and [place] | + + + | Organization | [facility] | | [...] Team Providers + +------+ + | Care Beveling And Edging Machine Operator Name | Role | Phone [...] | Follow-up | | 2019 | | [facility] [address] [place] [address] | Scientist Engineer | | | | | [place], [place] | | | | | | [address] | | | | | | [phone] | | | +--------+ + + + [...] back again. elephone Encounter - Armida Cummins Scientist Engineer - 08/11/19 10:32 AM PDTTried returning patient call on why we cancelled sx, patient did not answer. Left VM. P DTdocumented in this encounter Plan of Treatment Not on filedocumented as of this encounter Visit Diagnoses Not on filedocumented in this encounter"
--- OUTSIDE RECORDS SUMMARY | ~2019-10-30 | XMS | Encounter Summary ---
Demographics + + + | Address | [address] | | | [place] [address] | + + + | Home Phone [...] + + + | Author | [facility] | + + + | Organization | [facility] | + + + | Address | Unknown | + + + | Phone | Unavailable | + + + Support + + + + + | Name | Relationship | Address | Phone | + + + + + | Lolis Rodriguez | SCOTTY | [address] | | | | | [place] | | | | | [address] | | + + + + + Care Team Providers + +------+ + | Care Contract Administrator Name | Role | Phone | [...] Care | | 2016 | Support | [facility] | [address] | | | | Staff | [address], | [address] [place], [place] | | | | | [place], [place] | [address] | | | | | [address] | [phone] | | | | | [phone] | | | | | | | [address] | | | | | | Schedule [place], | | | | | | [place] [address] | | +--------+ + + + + [...]
--- OUTSIDE RECORDS SUMMARY | ~2019-10-30 | XMS | Encounter Summary ---
Demographics + + + | Address | [address] [place] | | | [place] [address] | + + + | Home Phone [...] Team Providers + +------+ + | Care Prenatal Nurse Name | Role | Phone | [...] Issues | | 2019 | | [place] [facility] [address] | Rn Oncology Clinical | | | | | [place] | | | | | | [address] | | | | | | [phone] | | | +--------+ + + + [...] Miscellaneous Notes Telephone Encounter - Armida Cummins Rn Oncology Clinical - 07/22/2019 4:13 PM PDTCalled p atient per dr. Munroe to reschedule patient for pre op appt for left hip. Patient was ok t o get scheduled for 07/26/2019. documented in this encounter Plan of Treatment Not on filedocumented as of this encounter Visit Diagnoses Not on filedocumented in this encounter"
--- OUTSIDE RECORDS SUMMARY | ~2019-10-30 | XMS | Encounter Summary ---
Demographics + + + | Address | [address] | | | [place] [address] | + + + | Home Phone [...] Team Providers + +------+ + | Care Tin Roller Hot Mill Name | Role | Phone | + [...] | Pre-Op | | 2019 | | [address] [address] [facility] | Methane Gas Collection System Operator | | | | | [place]VD [place], [place] | | | | | | [address] | | | | | | [phone] | | | +--------+ + + + [...]
--- OUTSIDE RECORDS SUMMARY | ~2019-10-30 | XMS | Encounter Summary ---
Demographics + + + | Address | [address] | | | [place] [address] | + + + | Home Phone [...] + + + | Author | [facility] | + + + | Organization | [facility] | + + + | Address | Unknown | + + + | Phone | Unavailable | + + + Support + + + + + | Name | Relationship | Address | Phone | + + + + + | Lolis Rodriguez | SC[place]TY | [address] | | | | | [place] | | | | | [address] | | + + + + + Care Team Providers + +------+ + | Care Repairer Kiln Car Name | Role | Phone | + [...] Clinic | | | | | | [facility] [address] | | | | | | [place], [place] | | | | | | [address] | | | | | | [phone] | | | +--------+ + + + [...] | + + + + + | [facility] | [address] | [place] [address] | | | LABORATORY | | | [...] | | AB | Test performed by [facility] | | | | | | [facility] | | | | | | Laboratories. | | | | + + + + + + + + | Specimen | + + | | + + + + + + + | Performing | Address | City/State/Zipcode | Phone Number | | Organization | | | | + + + + + | [facility] | [address] | [place] [address] | | | LABORATORY | | | [...] | + + + + + | [facility] | [address] | [place] [address] | | | LABORATORY | | | [...] | + + + + + | [facility] | [address] | [place] [address] | | | LABORATORY | | | [...] | CORE AB, | Test performed by [facility] | | | | | SERUM | [facility] | | | | | | Laboratories. | | | | + + + + + + + + | Specimen | + + | | + + + + + + + | Performing | Address | City/State/Zipcode | Phone Number | | Organization | | | | + + + + + | [facility] | [address] | [place] [address] | | | LABORATORY | | | [...] | + + + + + | [facility] | [facility] | [place] [address] | | | PATHOLOGY | [address] | | | + + + + + | [facility] DEPARTMENT OF | [address] | [place] [address] | | | PATHOLOGY | [address] [...] DEPARTMENT OF | [address] | [place] [address] | | | PATHOLOGY | [address] | | | + + + + + | [facility] DEPARTMENT OF | [address] | [place] [address] | | | PATHOLOGY | [address] [...] | + + + + + | [facility] | [address] | [place] [address] | | | PATHOLOGY | [address] | | | + + + + + | [facility] | [address] | [place] [address] | | | PATHOLOGY | [address] [...] Performed At | + + + | [id number] [place] Phoned | [facility] | | | DEPARTMENT OF | | | PATHOLOGY | + + + + + + + + | Performing | Address | City/State/Zipcode | Phone Number | | Organization | | | | + + + + + | [facility] | [address] | [place] [address] | | | PATHOLOGY | [address] | | | + + + + + | [facility] | [address] | [place] [address] | | | PATHOLOGY | [address] | | | + + + + + HDL CHOLESTEROL (02/08/2002 9:43 AM PST) + + + + + + | Component | Value | Ref Range | Performed | Pathologist | | | | | At | Signature | + + + + + + | HDL | 26 (L)Comment: | >40 mg/dL | [facility] | | | CHOLESTEROL | HDL Reference [...] | + + + + + | [facility] DE[facility]MENT [facility] | [address] | [place] [address] | | | PATHOLOGY | [address] | | | + + + + + | [facility] DEPARTMENT | [address] | [place] [address] | | | PATHOLOGY | [address] [...] | + + + + + | [facility] DEPARTMENT [facility] | [address] | [place] [address] | | | PATHOLOGY | [address] | | | + + + + + | [facility] DEPARTMENT [facility] | [address] | [place] [address] | | | PATHOLOGY | [address] [...] | [facility] DE[facility]MENT [facility] | [address] | [place] [address] | | | PATHOLOGY | [address] | | | + + + + + | [facility] DE[facility]MENT [facility] | [address] | [place] [address] | | | PATHOLOGY | [address] [...] | + + + + + | [facility] | [address] | [place] [address] | | | PATHOLOGY | [address] | | | + + + + + | [facility] | [address] | [place] [address] | | | PATHOLOGY | [address] [...] | + + + + + | [facility] | [address] | [place] [address] | | | PATHOLOGY | [address] | | | + + + + + | [facility] | [address] | [place] [address] | | | PATHOLOGY | [address] | | | + + + + + documented in this encounter Visit Diagnoses Not on filedocumented in this encounter"
--- OUTSIDE RECORDS SUMMARY | ~2019-10-30 | XMS | Encounter Summary ---
Demographics + + + | Address | [address] | | | [place] [address] | + + + | Home Phone [...] [address] | | | | | [address] | | + + + + + Care Team Providers + +------+ + | Care Multimedia Authoring Specialist Name | Role | Phone | [...] | | | | | [place], | | | | | | [place] [address] | | | +--------+ + + + [...] | 0 | 06/04/19 | | | [id number] | needed. | | | 16 | [...]
--- OUTSIDE RECORDS SUMMARY | ~2019-10-30 | XMS | Encounter Summary ---
Demographics + + + | Address | [address] | | | [place] [address] | + + + | Home Phone [...] [address] | | | | | [place] | | | | | [address] | | + + + + + Care Team Providers + +------+ + | Care Spindle Repairer Name | Role | Phone | + [...] [id number] | | | | | | [place], [place] | | | | | | [address] | | | | | | [phone] | | | +--------+ + + + [...] + + + + + | [facility] | [address] | [place] [address] | | | PATHOLOGY | [address] [...] + + + + + | [facility] | [address] | [place] [address] | | | PATHOLOGY | [address] [...] + + + + + | [facility] | [address] | [place] [address] | | | PATHOLOGY | [address] [...] + + + + + | [facility] | [address] | [place] [address] | | | PATHOLOGY | [address] [...] + + + + + | [facility] | [address] | [place] [address] | | | PATHOLOGY | [address] [...] + + + + + | [facility] | [address] | [place] [address] | | | PATHOLOGY | [address] [...] + + + + + | [facility] | [address] | [place] [address] | | | PATHOLOGY | [address] [...] | + + + + + | [facility] | [address] | [place] [address] | | | PATHOLOGY | [address] | | | + + + + + documented in this encounter Visit Diagnoses Not on filedocumented in this encounter"
--- OUTSIDE RECORDS SUMMARY | ~2019-10-30 | XMS | Encounter Summary ---
Demographics + + + | Address | [address] | | | [place] [address] | + + + | Home Phone [...] + + | Author | [facility] | + + + | Organization | [facility] | + + + | Address | Unknown | + + + | Phone | Unavailable | + + + Support + + + + + | Name | Relationship | Address | Phone | + + + + + | Lolis Rodriguez | SCOTTY | [address] | | | | | [address] | | | | | [address] | | + + + + + Care Team Providers + +------+ + | Care Contracts Representative Name | Role | Phone | [...] + + | 08/19/ | Refill | [facility] | Clair Kay MD | Refill Request | | 2017 | | [facility] | [address] | | | | | [address] | [facility] [address] | | | | | [address] | [place], [place] | | | | | [place], [address] floor | [address] | | | | | [place], [place] | [phone] | | | | | [address] | | | | | | [phone] | | | +--------+--------+ + + + [...] 4:36 PM PDT Refill request received from [facility] pharmacy for: Requested Prescriptions Pending Prescriptions Disp [...]
--- OUTSIDE RECORDS SUMMARY | 2019-10-30 23:34 | XMS ---
PreManage Notification: GROVER WYNN Security Director Sales Support Events No recent Security Events currently on file CRITERIA MET - Group Notification - [facility] CARE PROVIDERS ROXY MAS Internal Medicine Current PHONE: [phone] GONZALES CLAYTON Nurse Practitioner: 09/07/2017-Current PHONE: [phone] ROXY REESE [facility] 05/25/2019-Current PHONE: [phone] Guidelines Source: [facility] Guidelines Date: 07/12/2018 Care Coordination: Receiving mental health services with [facility].\T\nbsp; Please contact [facility] with mental health concerns.\T\nbsp; [facility]: [phone]\T\ nbsp; Alexandru: [phone]. Care History Social 03/18/2016 [facility] ENCOURAGE PATIENT TO USE PCP OR WALK-IN CLINIC FOR NON-EMERGENT PROBLEMS. SHE CAN CALL HAND CLIPPER FOR HELP OR QUESTIONS. [phone]. Medical/Surgical 05/25/2019 [facility] - PATIENT HAS A REFERRAL TO A HOSPITAL ADMINISTRATIVE ASSISTANT IN [place], [place]- DR BRAYAN BOLANOS- [phone]. 03/16/2019 [facility] Left voicemail to have patient schedule follow up visit with Gonzales Clayton 09/27/2018 [facility] - DUE TO PATIENT RECENT FALL- [facility] CONTACTED PCP OFFICE REQUESTED AN ED FOLLOW UP VISIT ON 09/27/18. E.D. VISIT COUNT (12 MO.) [address] TOTAL 7 NOTE: Visits indicate total known visits. ED/C VISIT TRACKING (12 MO.) 10/30/2019 23:32 [facility] [place] TYPE: Emergency COMPLAINT: - FALL 07/31/2019 15:05 [facility] [place] TYPE: Emergency COMPLAINT: - LOW BLOOD SUGAR DIAGNOSES: - Allergy status to other drugs, medicaments and biological sub - Nicotine dependence, unspecified, uncomplicated - Chest pain, unspecified - Other fci (current) 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 - Type 2 diabetes mellitus with hypoglycemia without coma - Allergy status to analgesic agent status - Hypothyroidism, unspecified - Chronic obstructive pulmonary disease, unspecified - Gastro-esophageal reflux disease without esophagitis 05/24/2019 16:01 [facility] [place] TYPE: Emergency COMPLAINT: - R SIDE RIB INJURY DIAGNOSES: - Fall on same level, unspecified, initial encounter - Hypothyroidism, unspecified - Gastro-esophageal reflux disease without esophagitis - Pleurodynia - Personal history of nicotine dependence - Multiple fractures of ribs, right side, initial encounter for - Other long term care pharmacist (current) 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 - Type 2 diabetes [...] migrainos - Unspecified asthma, uncomplicated - Other long term care pharmacist (current) 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 02/20/2019 01:37 [facility] TYPE: Emergency DIAGNOSES: - Pain in left hip - Pelvic Pain - Hip Pain - Other chronic pain - Unilateral primary osteoarthritis, left hip - Simple chronic bronchitis 12/06/2018 19:20 [facility] [place] TYPE: Emergency COMPLAINT: - WEAKNESS DIAGNOSES: - Allergy status to narcotic agent status - Hypothyroidism, unspecified - Allergy status to other drugs, medicaments and biological sub - long term care pharmacist (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 aspirin - Nicotine dependence, unspecified, uncomplicated - Type 2 diabetes mellitus with diabetic polyneuropathy - Other long term care pharmacist (current) 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 - Toxic effect of venom of bees, accidental (unintentional), in - Gastro-esophageal reflux disease without esophagitis - Personal history of malignant neoplasm of bladder - Toxic effect of venom of bees, accidental (unintentional), in - Chronic obstructive pulmonary disease with (acute) exacerbati - Wheezing 12/05/2018 22:[address] [facility] [place] TYPE: Emergency COMPLAINT: - BEE STING DIAGNOSES: - Allergy status to analgesic agent status - long term care pharmacist (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 aspirin - Nicotine dependence, unspecified, uncomplicated - Type 2 diabetes mellitus with diabetic neuropathy, unspecifie - Other fci (current) 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 - Toxic effect of venom of bees, accidental (unintentional), in - Bipolar disorder, unspecified - Chronic obstructive pulmonary disease, unspecified - Allergy status to other drugs, medicaments and biological sub - Gastro-esophageal reflux disease without esophagitis - Hypothyroidism, unspecified - Personal history of malignant neoplasm of bladder INPATIENT VISIT TRACKING (12 MO.) No inpatient visits to display in this time frame [id number]
[2019-10-30] MEDS ORDERED: JARDIANCE10 MG PO (23:49)
[2019-10-31] MEDS ORDERED: NORCO 5-325 TA1 EACH PO (00:46)
[2019-10-31] MEDS ORDERED: DICLOFENAC SODI75 MG PO (00:46)
== END 2019-10-31 00:56 | disposition home or self-care (01) ==
LOC: ED 23:32
DX: S63.501A Unspecified sprain of right wrist, initial encounter (principal); S76.012A Strain of muscle, fascia and tendon of left hip, initial encounter; E03.9 Hypothyroidism, unspecified; K21.9 Gastro-esophageal reflux disease without esophagitis; E11.42 Type 2 diabetes mellitus with diabetic polyneuropathy; F17.200 Nicotine dependence, unspecified, uncomplicated; Z88.6 Allergy status to analgesic agent; Z88.8 Allergy status to other drugs, medicaments and biological substances; W18.30XA Fall on same level, unspecified, initial encounter
CPT/HCPCS: 73110; 73502; 96374; 99283-25; J3010

== ENCOUNTER 2019-12-16 13:40 | Emergency (ER) | payer MEDICARE, MEDICAID ==
[~2019-12-16] VITALS: Ht 157.5 cm; Wt 81.7 kg
--- OUTSIDE RECORDS SUMMARY | ~2019-12-16 | XMS | Encounter Summary ---
Demographics + + + | Address | [address] | | | [place] [address] | + + + | Home Phone | | + + + | Preferred Language | Unknown | + + + | Marital Status | Single | + + + | Evangelical Affiliation | Unknown | + + + | Race | White | + + + | Ethnic Group | Not or | + + + Author + + + | Author | [facility] | + + + | Organization | [facility] | + + + | Address | Unknown | + + + | Phone | Unavailable | + + + Support + + + + + | Name | Relationship | Address | Phone | + + + + + | Lolis Rodriguez | SCOTTY | [address] | | | | | [address] [place] | | | | | [address] | | + + + + + Care Team Providers + +------+ + | Care Complaint Specialist Name | Role | Phone | [...] as of this encounter Progress Notes Interface, Client Technologies Analyst In - 08/24/2005 3:03 AM PDTCLINIC DATE: [...] in 6 weeks. James Boss M.D., [facility] / [id number] / [id number] / [id number] / Tdocumented in this encounter Plan of Treatment Not on filedocumented as of this encounter Visit Diagnoses Not on filedocumented in this encounter
--- OUTSIDE RECORDS SUMMARY | ~2019-12-16 | XMS | Encounter Summary ---
Demographics + + + | Address | [address] | | | [place] [address] | + + + | Home Phone | | + + + | Preferred Language | Unknown | + + + | Marital Status | Single | + + + | Yarsani Affiliation | Unknown | + + + [...] [address] | | | | | [address] [place] | | | | | [address] | | + + + + + Care Team Providers + +------+ + | Care Narcotics And Vice Detective Name | Role | Phone | + [...] | | | postprocedur | LEGACY | [place] | | | | | al | MEDICAL | [address] | | | | | status(V45.8 | GROUP | [place], | | | | | 9) | [place] | [place], [place] | | | | | Procedures | [address] | [address] | | | | | PORT FLUSH | [address] | Phone: | | | | | LABS | [address] | [phone] | | | | | | [place], [place] | Fax: | | | | | | [address] | [phone] | | | | | | Phone: | | | | | | | [phone] | | | | | | | Fax: | | | | | | | [phone] | | +--------+--------+ + + + + Encounter Details +--------+ + + + + | Date | Type | Department | Care Team | Description | +--------+ + + + + | 03/09/ | [facility] | [place] Nurse | [facility] | | 2016 | l Support | [facility] [place] | [address] | ([facility]) | | | Staff | [address], | [address] [place], [place] | | | | | [place], [place] | [address] | | | | | [address] | [phone] | | | | | [phone] | | | | | | | Sree [address] | | | | | | Schedule [place], | | | | | | [place] [address] | | +--------+ + + + + [...] + + + | Blood Pressure | 143/65 | 03/09/2015 2:35 PM | | | | | PST | | + + + + + | Pulse | 87 | 03/09/2015 2:35 PM | | | | | PST | | + + + + + | Temperature | 36.8 C (98.2 F) | 03/09/2015 2:35 PM | | | | | PST | | + + + + + | Respiratory Rate | 16 | 03/09/2015 2:35 PM | | | | | PST | | + + + + + | Oxygen Saturation | - | - | | + + + + + | Inhaled Oxygen | - | - | | | Concentration | | | | + + + + + | Weight | 99.8 kg (220 lb) | 03/09/2015 2:35 PM | | | | | PST | | + + + + + | Height | - | - | | + + + + + | Body Mass Index | - | - | | + + + + + documented in this encounter Progress Notes Mary Vee, YOLANDA - 03/09/2015 3:21 PM Faustina Javed is here today for port flush. Por t located in right chest. It was accessed, flushed and deaccessed per protocol. Blood return Present. Site unremarkable, no labs. Patient tolerated procedure without complication. At discharge stable, Alert & Oriented x3, no acute distress and mood and affect appropriate and discharged ambulatory. Tdocumented in this encounter Plan of Treatment Not on filedocumented as of this encounter Visit Diagnoses + + | Diagnosis | + + | Abdominal pain, generalized - Primary | + + documented in this encounter Administered Medications + +---------+ +-------+------+-------+ | Medication Order | MAR | Action | Dose | Rate | Site | | | Action | Date | | | | + +---------+ +-------+------+-------+ | heparin 100 unit/mL IV flush | New Bag | 03/09/19 | 500 | | Port | | 500 Units 500 Units, | | 16 3:00 | Units | | | | intravenous, NEEDED, Starting | | PM PST | | | | | 03/09/15 at 1440, Until Fri | | | | | | | 03/09/15 at 2123, line patency | | | | | | + +---------+ +-------+------+-------+ +---+---+ | | | +---+---+ documented in this encounter"
--- OUTSIDE RECORDS SUMMARY | ~2019-12-16 | XMS | Encounter Summary ---
Demographics + + + | Address | [address] | | | [place] [address] | + + + | Home Phone | | + + + | Preferred Language | Unknown | + + + | Marital Status | Single | + + + | Quaker Affiliation | Unknown | + + + | Race | White | + + + | Ethnic Group | Unknown | + + + Author + + + | Author | [facility] | | | and [place] | + + + | Organization | [facility] | | | and [place] | + + + | Address | Unknown | + + + | Phone | Unavailable | + + + Support + + +---------+ + | Name | Relationship | Address | Phone | + + +---------+ + | Rebecca Hughes | ECON | Unknown | | + + +---------+ + Care Team Providers + +------+ + | Care Personnel Director Name | Role | Phone | + +------+ + | Gonzales Rivera NP | PCP | | + +------+ + Encounter Details +--------+ + + + + | Date | Type | Department | Care Team | Description | +--------+ + + + + | 01/06/ | Hospital | [facility] | Rigo Muniz | Pain in both knees, | | 2018 | Encounter | [facility] | [address] | unspecified | | | | [address] [place] | [address] | chronicity; | | | | [place], [place] | [place] [address] | Bilateral hip pain | | | | [address] | [phone] | | | | | [phone] | | | +--------+ + + + [...] + + documented as of this encounter Medications at Time of Discharge + + + +---------+ + + | Medication | Sig | Dispensed | Refills | Start | End Date | | | | | | Date | | + + + +---------+ + + | albuterol 2.5 mg/3 | Inhale 2.5 mg into | | 0 | /08/12 | | | mL nebulizer | the lungs. | | | 16 | | | solution | | | | | | + + + +---------+ + + | | Inhale 3 mLs into | | 0 | 03/10/12 | | | albuterol-ipratropiu | the lungs. | | | 16 | | | m 2.5-0.5 mg/3 mL | | | | | | | SOLN | | | | | | + + + +---------+ + + | Aspirin | Take 81 mg by mouth. | | 0 | 03/04/19 | | | Buf,IxZbgq-NrTqle-Ld | | | | 15 | | | O, 81 MG TABS | | | | | | + + + +---------+ + + | fluticasone | INSTILL 1 TO 2 | | 0 | 12/26/19 | | | (FLONASE) 50 | SPRAYS IEN BID | | | 18 | | | mcg/nasal spray | | | | | | + + + +---------+ + + | metoprolol | TK 1 T PO BID | | 11 | 12/26/19 | | | succinate | | | | 18 | | | (TOPROL-XL) 25 mg 24 | | | | | | | hr tablet | | | | | | + + + +---------+ + + | Multiple Vitamin | Take 1 capsule by | | 0 | | | | (MULTIVITAMIN) | mouth. | | | | | | capsule | | | | | | + + + +---------+ + + | nitroglycerin | Place 0.4 mg under | | 0 | 02/03/20 | | | (NITROSTAT) 0.4 mg | the tongue. | | | 14 | | | SL tablet | | | | | | + + + +---------+ + + | omeprazole | TK 1 C PO D | | 3 | 10/30/19 | | | (PRILOSEC) 20 mg | | | | 18 | | | capsule | | | | | | + + + +---------+ + + | ondansetron | DIS ONE T PO Q 8 | | 0 | 10/31/19 | | | (ZOFRAN ODT) 4 mg | HOURS NEEDED | | | 18 | | | disintegrating | | | | | | | tablet | | | | | | + + + +---------+ + + | PREMARIN 0.625 | INSERT 1 GRAM | | 3 | 11/17/19 | | | MG/GM vaginal cream | VAGINALLY AT NIGHT | | | 18 | | | | TWICE A WEEK | | | | | + + + +---------+ + + | promethazine | TAKE 1 TABLET BY | | 0 | 08/08/19 | | | (PHENERGAN) 25 mg | MOUTH EVERY 6 HOURS | | | 16 | | | tablet | NEEDED FOR NAUSEA | | | | | + + + +---------+ + + | sertraline | TAKE 2 TABLETS BY | | 0 | 05/01/19 | | | (ZOLOFT) 100 mg | MOUTH AT BEDTIME | | | 16 | | | tablet | | | | | | + + + +---------+ + + | tiotropium | Spiriva Respimat | | 0 | | | | (SPIRIVA RESPIMAT) | once qday | | | | | | 1.25 mcg/puff | | | | | | | inhaler | | | | | | + + + +---------+ + + | VENTOLIN HFA 108 | INL 2 PFS PO Q 4 H | | 11 | 12/26/19 | | | (90 Base) MCG/ACT | PRF WHZ OR SOB | | | 18 | | | inhaler | | | | | | + + + +---------+ + + | atorvaSTATin | Take 40 mg by mouth. | | 0 | 05/01/19 | | | (LIPITOR) 40 mg | | | | 16 | 0 | | tablet | | | | | | + + + +---------+ + + | atorvaSTATin | TK 1 T PO QD | | 3 | 12/26/19 | | | (LIPITOR) 80 MG | | | | 18 | 9 | | tablet | | | | | | + + + +---------+ + + | baclofen | TK 1 T PO QAM AND 1 | | 5 | 11/18/19 | | | (LIORESAL) 10 mg | T IN THE EVENING AND | | | 18 | 0 | | tablet | 2 TS AT NIGHT | | | | | | | NEEDED FOR MUSCLE | | | | | | | SPASM/PAIN | | | | | + + + +---------+ + + | diclofenac | APPLY 2 GRAM | | 3 | 12/26/19 | | | (VOLTAREN) 1% GEL | TOPICALLY AA BID | | | 18 | 0 | + + + +---------+ + + | dicyclomine | TAKE 1 TABLET BY | | 0 | 08/08/19 | | | (BENTYL) 20 MG | MOUTH EVERY 6 HOURS | | | 16 | 9 | | tablet | NEEDED FOR | | | | | | | ABDOMINAL CRAMPING | | | | | + + + +---------+ + + | erythromycin | Apply to L eye every | | 0 | 10/14/19 | | | ophthalmic ointment | 4 hours for 7 days | | | 16 | 9 | + + + +---------+ + + | glipiZIDE | TK 1 T PO BID | | 3 | 10/30/19 | | | (GLUCOTROL) 5 mg | | | | 18 | 0 | | tablet | | | | | | + + + +---------+ + + | ibuprofen | TK 1 T PO Q 6 H PRN | | 5 | 11/17/19 | | | (ADVIL,MOTRIN) 800 | P | | | 18 | 9 | | MG tablet | | | | | | + + + +---------+ + + | levothyroxine | TAKE 1 TABLET BY | | 0 | 06/27/19 | | | (SYNTHROID) 75 MCG | MOUTH EVERY DAY | | | 17 | 9 | | tablet | | | | | | + + + +---------+ + + | metFORMIN | TAKE 1 TABLET BY | | 0 | 10/24/19 | | | (GLUCOPHAGE-XR) 500 | MOUTH TWICE DAILY | | | 16 | 0 | | mg 24 hr tablet | | | | | | + + + +---------+ + + | mometasone | 2 sprays by Nasal | | 0 | 05/01/19 | | | (NASONEX) 50 | route. | | | 16 | 0 | | mcg/nasal spray | | | | | | + + + +---------+ + + documented as of this encounter Plan of Treatment + +---------+--------+ + + | Name | Type | Priori | Associated Diagnoses | Order Schedule | | | | ty | | | + +---------+--------+ + + | XR Hip Left 2-3 | Imaging | Routin | Bilateral hip pain | 1 Occurrences | | Views | | e | | starting 01/06/2018 | | | | | | until 01/06/2018 | + +---------+--------+ + + documented as of this encounter Procedures + +--------+ + + + | Procedure Name | Priori | Date/Time | Associated Diagnosis | Comments | | | ty | | | | + +--------+ + + + | XR HIP BILATERAL 3-4 | Routin | 01/06/2018 | Bilateral hip pain | Results for this | | VIEWS | e | 2:29 PM | | procedure are in the | | | | PST | | results section. | + +--------+ + + + | XR KNEE RIGHT 4 + VW | Routin | 01/06/2018 | Pain in both | Results for this | | | e | 2:29 PM | knees, unspecified | procedure are in the | | | | PST | chronicity | results section. | + +--------+ + + + | XR KNEE LEFT 1 - 2 | Routin | 01/06/2018 | Pain in both | Results for this | | VW | e | 2:29 PM | knees, unspecified | procedure are in the | | | | PST | chronicity | results section. | + +--------+ + + + documented in this encounter Results XR Hip Bilateral 3-4 Views (01/06/2018 2:29 PM PST) + + | Specimen | + + | | + + + + + | Narrative | Performed At | + + + | THREE VIEWS PELVIS AND HIPS 01/06/2018 2:29 PM CLINICAL HISTORY: | [facility] | | bilateral hip pain COMPARISON: None available FINDINGS: Right | | | total hip arthroplasty hardware is present and appears well seated. | | | The bones are well-mineralized and well aligned, without evident | | | fracture or subluxation. The left hip joint and pubic symphysis are | | | maintained. There is some spurring along the inferior margins of the | | | SI joints. A surgical clip projects in the right lower abdomen. | | | Right gluteal calcification may relate to previous trauma or | | | inflammation. Soft tissues are otherwise unremarkable. | | | IMPRESSION - 1. SATISFACTORY APPEARANCE OF RIGHT TOTAL HIP | | | ARTHROPLASTY HARDWARE AND MILD DEGENERATIVE CHANGES OF THE SI JOINTS | | | , WITHOUT OTHER SIGNIFICANT ABNORMALITY. Dictated and Signed by: | | | Kristopher Rondon MD Electronically signed: 01/06/2018 3:25 PM | | + + + + + | Procedure Note | + + | Kalen, Rad Results In - 01/06/2018 3:28 PM PST THREE VIEWS PELVIS AND HIPS 01/06/2018 | | 2:29 PMCLINICAL HISTORY: bilateral hip painCOMPARISON: None availableFINDINGS: Right | | total hip arthroplasty hardware is present and appears wellseated. The bones are | | well-mineralized and well aligned, without evidentfracture or subluxation. The left hip | | joint and pubic symphysis are maintained. There is some spurring along the inferior | | margins of the SI joints. A surgicalclip projects in the right lower abdomen. Right | | gluteal calcification mayrelate to previous trauma or inflammation. Soft tissues are | | otherwiseunremarkable.IMPRESSION -1. SATISFACTORY APPEARANCE OF RIGHT TOTAL HIP | | ARTHROPLASTY HARDWARE AND MILDDEGENERATIVE CHANGES OF THE SI JOINTS , WITHOUT OTHER | | SIGNIFICANT ABNORMALITY.Dictated and Signed by: Kristopher Rondon MD Electronically signed: | | 01/06/2018 3:25 PM | |relate to previous trauma or inflammation. Soft tissues are otherwise | |unremarkable. | | | |IMPRESSION - | |1. SATISFACTORY APPEARANCE OF RIGHT TOTAL HIP ARTHROPLASTY HARDWARE AND MILD | |DEGENERATIVE CHANGES OF THE SI JOINTS , WITHOUT OTHER SIGNIFICANT ABNORMALITY. | | | |Dictated and Signed by: Kristopher Rondon MD | | Electronically signed: 01/06/2018 3:25 PM | + + + +---------+ + + | Performing | Address | City/State/Zipcode | Phone Number | | Organization | | | | + +---------+ + + | [facility] | | | | + +---------+ + + XR Knee Left 1 - 2 Vw (01/06/2018 2:29 PM PST) + + | Specimen | + + | | + + + + + | Narrative | Performed At | + + + | FOUR VIEWS BILATERAL KNEES 01/06/2018 2:29 PM CLINICAL HISTORY: | [facility] | | bilateral knee pain COMPARISON: None available FINDINGS: The | | | bones are well-mineralized and well aligned. No fracture or | | | subluxation is evident. There is moderate narrowing of the left | | | medial femorotibial compartment, with only minimal narrowing of the | | | right medial compartment. The lateral compartment and | | | patellofemoral joints are maintained although there is early marginal | | | osteophyte involving the left patellofemoral joint. A small right | | | knee effusion is suggested, while only trace left knee fluid is | | | apparent. Soft tissues are otherwise unremarkable. IMPRESSION - | | | 1. MODERATE, ASYMMETRIC DEGENERATION OF THE LEFT MEDIAL | | | FEMOROTIBIAL JOINT COMPARTMENT WITH SMALL, RIGHT GREATER THAN LEFT | | | KNEE EFFUSIONS. Dictated and Signed by: Kristopher Rondon MD | | | Electronically signed: 01/06/2018 3:31 PM | | + + + + + | Procedure Note | + + | Kalen, Rad Results In - 01/06/2018 3:34 PM PST FOUR VIEWS BILATERAL KNEES 01/06/2018 | | 2:29 PMCLINICAL HISTORY: bilateral knee painCOMPARISON: None availableFINDINGS: The | | bones are well-mineralized and well aligned. No fracture orsubluxation is evident. | | There is moderate narrowing of the left medialfemorotibial compartment, with only | | minimal narrowing of the right medialcompartment. The lateral compartment and | | patellofemoral joints are maintainedalthough there is early marginal osteophyte | | involving the left patellofemoraljoint. A small right knee effusion is suggested, while | | only trace left kneefluid is apparent. Soft tissues are otherwise | | unremarkable.IMPRESSION -1. MODERATE, ASYMMETRIC DEGENERATION OF THE LEFT MEDIAL | | FEMOROTIBIAL JOINTCOMPARTMENT WITH SMALL, RIGHT GREATER THAN LEFT KNEE | | EFFUSIONS.Dictated and Signed by: Kristopher Rondon MD Electronically signed: 01/06/2018 | | 3:31 PM | |fluid is apparent. Soft tissues are otherwise unremarkable. | | | |IMPRESSION - | |1. MODERATE, ASYMMETRIC DEGENERATION OF THE LEFT MEDIAL FEMOROTIBIAL JOINT | |COMPARTMENT WITH SMALL, RIGHT GREATER THAN LEFT KNEE EFFUSIONS. | | | |Dictated and Signed by: Kristopher Rondon MD | | Electronically signed: 01/06/2018 3:31 PM | + + + +---------+ + + | Performing | Address | City/State/Zipcode | Phone Number | | Organization | | | | + +---------+ + + | [facility] | | | | + +---------+ + + XR Knee Right 4 + Vw (01/06/2018 2:29 PM PST) + + | Specimen | + + | | + + + + + | Narrative | Performed At | + + + | FOUR VIEWS BILATERAL KNEES 01/06/2018 2:29 PM CLINICAL HISTORY: | [facility] | | bilateral knee pain COMPARISON: None available FINDINGS: The | | | bones are well-mineralized and well aligned. No fracture or | | | subluxation is evident. There is moderate narrowing of the left | | | medial femorotibial compartment, with only minimal narrowing of the | | | right medial compartment. The lateral compartment and | | | patellofemoral joints are maintained although there is early marginal | | | osteophyte involving the left patellofemoral joint. A small right | | | knee effusion is suggested, while only trace left knee fluid is | | | apparent. Soft tissues are otherwise unremarkable. IMPRESSION - | | | 1. MODERATE, ASYMMETRIC DEGENERATION OF THE LEFT MEDIAL | | | FEMOROTIBIAL JOINT COMPARTMENT WITH SMALL, RIGHT GREATER THAN LEFT | | | KNEE EFFUSIONS. Dictated and Signed by: Kristopher Rondon MD | | | Electronically signed: 01/06/2018 3:31 PM | | + + + + + | Procedure Note | + + | Kalen, Rad Results In - 01/06/2018 3:34 PM PST FOUR VIEWS BILATERAL KNEES 01/06/2018 | | 2:29 PMCLINICAL HISTORY: bilateral knee painCOMPARISON: None availableFINDINGS: The | | bones are well-mineralized and well aligned. No fracture orsubluxation is evident. | | There is moderate narrowing of the left medialfemorotibial compartment, with only | | minimal narrowing of the right medialcompartment. The lateral compartment and | | patellofemoral joints are maintainedalthough there is early marginal osteophyte | | involving the left patellofemoraljoint. A small right knee effusion is suggested, while | | only trace left kneefluid is apparent. Soft tissues are otherwise | | unremarkable.IMPRESSION -1. MODERATE, ASYMMETRIC DEGENERATION OF THE LEFT MEDIAL | | FEMOROTIBIAL JOINTCOMPARTMENT WITH SMALL, RIGHT GREATER THAN LEFT KNEE | | EFFUSIONS.Dictated and Signed by: Kristopher Rondon MD Electronically signed: 01/06/2018 | | 3:31 PM | |fluid is apparent. Soft tissues are otherwise unremarkable. | | | |IMPRESSION - | |1. MODERATE, ASYMMETRIC DEGENERATION OF THE LEFT MEDIAL FEMOROTIBIAL JOINT | |COMPARTMENT WITH SMALL, RIGHT GREATER THAN LEFT KNEE EFFUSIONS. | | | |Dictated and Signed by: Kristopher Rondon MD | | Electronically signed: 01/06/2018 3:31 PM | + + + +---------+ + + | Performing | Address | City/State/Zipcode | Phone Number | | Organization | | | | + +---------+ + + | [facility] | | | | + +---------+ + + documented in this encounter Visit Diagnoses + + | Diagnosis | + + | Pain in both knees, unspecified chronicity | + + | Bilateral hip pain Pain in joint, pelvic region and thigh | + + documented in this encounter"
--- OUTSIDE RECORDS SUMMARY | ~2019-12-16 | XMS | Encounter Summary ---
Demographics + + + | Address | [address] | | | [place] [address] | + + + | Home Phone | | + + + | Preferred Language | Unknown | + + + | Marital Status | Single | + + + | Buddhism Affiliation | Unknown | + + + | Race | White | + + + | Ethnic Group | Unknown | + + + Author + + + | Author | [facility] | | | and [place] | + + + | Organization | [facility] | | | [...] Team Providers + +------+ + | Care Hub Lead Name | Role | Phone | + +------+ + | Mahendra Merchant | PCP | | + +------+ + Reason for Visit + +--------+ + | Reason | Onset | Comments | | | Date | | + +--------+ + | Medication Question | 05/03/ | | | | 2020 | | + +--------+ + Encounter Details +--------+ + + + + | Date | Type | Department | Care Team | Description | +--------+ + + + + | 05/03/ | Telephone | [facility] | Armida Cummins, | Medication Question | | 2019 | | [facility] | Ultrasound Applications Specialist | | | | | [place] | | | | | | [address] | | | | | | [phone] | | | +--------+ + + + [...] this encounter Miscellaneous Notes Telephone Encounter - Armida Cummins, Ultrasound Applications Specialist - 05/04/2019 11:29 AM PDTPatient returned call wanting to know if dr. Munroe can prescribe her pain medication. I let her k now dr. Munroe does not give pain medication to patients he has not done surgery on. I let her know she can try tylenol for pain. Patient stated she has tried that & does not work, a lso states that she struggles to keep food down from so much pain. I let her know she can al so call her PCP. Patient acknowledged she understood. documented in this encounter Plan of Treatment Not on filedocumented as of this encounter Visit Diagnoses Not on filedocumented in this encounter"
--- OUTSIDE RECORDS SUMMARY | ~2019-12-16 | XMS | Encounter Summary ---
Demographics + + + | Address | [address] | | | [place] [address] | + + + | Home Phone | | + + + | Preferred Language | Unknown | + + + | Marital Status | Single | + + + | Jewish Affiliation | Unknown | + + + | Race | White | + + + | Ethnic Group | Not or | + + + Author + + + | Author | [facility] | + + + | Organization | [facility] | + + + | Address | Unknown | + + + | Phone | Unavailable | + + + Support + + + + + | Name | Relationship | Address | Phone | + + + + + | Lolis Rodriguez | [address]TY | [address] | | | | | [place] | | | | | [address] | | + + + + + Care Team Providers + +------+ + | Care Political Analyst Name | Role | Phone | + +------+ + | James Horne MD | PCP | | + +------+ + Reason for Visit + + + | Reason | Comments | + + + | New patient | | | consultation | | + + + Intake Referral (Routine) +--------+--------+ + + + + | Status | Reason | Specialty | Diagnoses / | Referred By | Referred To | | | | | Procedures | Contact | Contact | +--------+--------+ + + + + | Closed | | Obstetrics & | Diagnoses | Marie, | Eliza, | | | | Gynecology | Female | Jose M Ash DO | Clair Santana MD | | | | | genital | [facility] | [address] | | | | | prolapse, | Hospital | [facility] | | | | | unspecified | [address] | [address] | | | | | Procedures | [address] | [place], [place] | | | | | [place] NEW | [address] | [address] | | | | | PATIENT | Demian, | Phone: | | | | | [place] | [place] [address] | [phone] | | | | | EST PATIENT | Phone: | Fax: | | | | | [place] | [phone] | [phone] | | | | | | Fax: | | | | | | | [phone] | | +--------+--------+ + + + + Encounter Details +--------+---------+ + + + | Date | Type | Department | Care Team | Description | +--------+---------+ + + + | 08/18/ | Office [facility] | Clair Kay MD | Pelvic pain (Primary | | 2017 | Visit | [facility] | [address] | Dx); Pain of right | | | | [address] | [address] | hip joint; Mixed | | | | [address] | [place], [place] | incontinence urge | | | | Pavilion, 7th floor | [address] | and stress | | | | [place], [place] | [phone] | (male)(female) | | | | [address] | | | | | | [phone] | | | +--------+---------+ + + + [...] + + + documented in this encounter Patient Instructions Patient Instructions Danna Middleton MD - 08/18/2016 3:15 PM Alexandru Schaeffer, It was aguila to meet you today. We discussed the followin. Pain - I do not think there is a surgical fix to your pain at this time. I would like yo u to start with physical therapy for your hip as well as start gabapentin to decrease the ne rve sensitivities. 2. [place] - please stop by [employer] on your way out of town to pick up driver "astroglide" for lubrication. 3. Follow up - please make an appointment in 3 months after starting PT. Please sign up for MyChart so we can communicate about your gabapentin dosing. I have included below some information about pelvic muscle pain. Clair Brown MD Flyer Repairer Division of Urogynecology and Reconstructive Pelvic Surgery Department of Patient Admitting Representative [facility] Levator Myalgia The muscles along the base of the pelvis are called the levators. They are two large 'sling -like' muscles that suspend from the pubic bone in the front to the tail bone in the back. T hey hold everything up that is contained in the pelvic area your bladder, bowels, and re ctum. Sometimes these muscles will go into a spasm (like a 'charley horse') and cause pain. This is a condition known as levator myalgia. Women often describe this pain as a heavy pres sure feeling, almost as though something might 'fall out.' The spasm can sometimes create a sharp stabbing pain in the vagina, low back pain, as well as pain passing bowel movements and/or having sex. This pain tends to get worse with prolon ged sitting or standing, and may increase as the day wears on. Spasm of the levator muscles may also cause bladder symptoms such as urgency and frequency to urinate, as well as bladder pain. In some women, this pain may prevent normal bladder e mptying. Treatment Physical Therapy- Many physical therapists have expertise in working with this muscle group . Pelvic floor physical therapy is typically done through the vagina, like a gynecologic exa mination. Your physical therapist will work with you in performing techniques for relaxation of the pelvic floor muscles as well as gentle massage to release spasm in the muscles. Relaxation- Apply a heating pad to your low back may be helpful when feeling pain. Soaking in a warm bath may also help with relaxation and pain. Medications- Your doctor may prescribe some vaginal medications which help in muscle relax ation prior to physical therapy. Using medications such as Tylenol and Ibuprofen may also he lp with pain. Associated Disorders Low Back Pain Often women with levator myalgia have low back pain. This is because the muscles of the back are connected to the muscles in the pelvic floor. Physical therapy for the pelvic floor often helps with low back pain. Knee, Leg, or Hip Pain Other muscle injuries can contribute to pelvic floor pain. Oft en joint replacement surgery, sprains or strains of joints like the knee, hip, or ankle can cause the muscles of the pelvic floor to become unbalanced, which can often make pain worse. Treating both conditions can involve changing exercise habits or activities or seeing a sp orts medicine/ translational specialist. & Chronic Pain Levator myalgia can be associated with chronic pain. In certain cases we will recommend a paint stripper to help with your care. documented in this encounter Progress Notes Clair Kay MD - 08/18/2016 3:15 PM PDT Urogynecology New Patient Consult HPI: Ms. Crockett is a reporting the following problems: Pelvic pain Ms Crockett presents for evaluation of pelvic pain. She has a complicated surgical history foll owing SYBIL/BSO for AUB and dysmenorrhea in the late . She then underwent R sacrospinous ligament suspension with resolution of prolapse symptoms. Unfortuantely this was complicated by stitch erosion and hematoma which was revised in 2014. Since that time she described 8-1 0/10 lower abdominal pain. Describes as a volcano that is about to explode. Says pain is so bad that she has projectile vomiting daily. She also described excessive pain if she d oes not void immediately upon desire. Not sexually active due to pain. No clear symptoms of prolapse but does say she feels a vaginal pressure. On review of records it appears she has had chronic pelvic pain for many years and has prev iously sought surgical management including rectocele repair and her providers have felt her symptoms were most consistent with chronic muscle pain. She has a history of a right knee r eplacement and is likely going forward with additional orthopedic surgeries including left h ip replacement and bilateral knee replacements. Reports she tried pelvic physical therapy with minimal benefit - she felt it was too invasi ve, she did not feel that she had a good therapeutic relationship with the therapist. Saw Dr Marie who started vaginal valium and the patient reports mild benefit with this. Does admit to ongoing urge incontinence of moderate amount of urine. Had urodynamics in 201 5 which showed detrusor overactivity, normal capacity and compliance, no stress incontinence . Previously tried anticholinergics with minimal benefit. OVERACTIVE BLADDER ROS Positive for: Urgency to urinate Frequency of urination Nocturia URGENCY LEAKAGE ROS Positive for: going to the toilet No stress incontinence AMOUNT OF URINARY LEAKAGE Soaks underwear No voiding problems No difficulty with defecation No anal incontinence PROLAPSE ROS Positive for Feeling a bulge PAIN ROS Positive for Pelvic pain all the time Pain with intercourse Pain with urination Pain after urination Pain with defecation Pain after defecation A 10-point review of systems was reviewed on the patient intake questionnaire (scanned into [email or web address]) and with the patient. The summary is reported below, and is negative unless otherwis e noted. REVIEW OF SYSTEMS GENERAL: Negative ENT: Negative EYES: Negative MUSCULOSKELETAL: Negative GI: Negative CV: Negative RESP: Negative PSYCH: Negative ENDOCRINE: Negative HEMATOLOGIC: Negative In addition, the past medical history, surgical history, family history, social history, an d current medications were reviewed on the patient intake questionnaire provided at today s visit to be found in the scanned documents in [email or web address]. They have also been entered into rele vant carson of the [email or web address] database. Past Medical History: Diagnosis Date Abdominal pain, right upper quadrant Asthma 1980 Bipolar disorder ([facility]) 1998 Chronic fatigue COPD (chronic obstructive pulmonary disease) ([facility]) Diabetes ([facility]) Disorders of sacrum Diverticulitis Elevated liver enzymes 1999 Esophageal hiatal hernia 1998 Fatty liver Fibromyalgia Gallstones 1994 GERD (gastroesophageal reflux disease) Hemorrhoids Hepatomegaly 1999 Hypertriglyceridemia Hypothyroidism Lower back pain Lumbosacral spondylosis without myelopathy Migraine Myocardial infarct ([facility]) Neuralgia, neuritis, and radiculitis, unspecified Opioid type dependence Other and unspecified disc disorder of lumbar region Pain in joint, pelvic region and thigh PUD (peptic ulcer disease) Seasonal allergies Spasm of muscle SVT (supraventricular tachycardia) ([facility]) 1980 Thoracic spondylosis without myelopathy Past Surgical History Procedure Laterality Date Cholecystectomy 1994 Hiatal hernia repair 1980 Tonsillectomy Left knee surgery times three section 1987 Hysterectomy 1990 Three cardiac arteriogram procedures Insertion, coronary artery stent Appendectomy Excision of vaginal mass 2014 stitch and hematoma Family History Problem Relation Ovarian Cancer Sister Breast Cancer Sister Diabetes Other Social History Social History Marital status: Single Spouse name: N/A Number of children: N/A Years of education: N/A Social History Main Topics Smoking status: Former Smoker Smokeless tobacco: None Alcohol use No Drug use: No Sexual activity: No Other Topics Concern None Social History Narrative Current Outpatient Prescriptions: albuterol 0.083% 2.5 mg /3 mL (0.083 %) inhalation soluti on for nebulization, Inhale as needed., Disp: , Rfl: albuterol 90 mcg/actuation inhalation HFA aerosol inhaler, as needed., Disp: , Rfl: aspirin EC 81 mg oral tablet,delayed release (DR/EC), Take 81 mg by mouth once daily., Disp : , Rfl: atorvastatin 40 mg oral tablet, Take 40 mg by mouth once daily., Disp: , Rfl: dicyclomine 20 mg oral tablet, 20 mg once daily., Disp: , Rfl: erythromycin 5 mg/gram (0.5 %) ophthalmic ointment, two times daily., Disp: , Rfl: fluticasone-salmeterol 250-50 mcg/dose inhalation blister with device, 2 puffs two times da de., Disp: , Rfl: gabapentin 100 mg oral capsule, Take 1 capsule by mouth three times daily., Disp: 90 capsul e, Rfl: 3 ibuprofen 800 mg oral tablet, 800 mg three times daily as needed., Disp: , Rfl: insulin detemir 100 unit/mL (3 mL) subcutaneous insulin pen, Inject 74 Units under the skin (SUBC) once daily., Disp: , Rfl: insulin lispro (Human) 100 unit/mL subcutaneous insulin pen, three times daily as needed., Disp: , Rfl: insulin needles, Disposable, (BD ULTRA-FINE ROGERIO PEN NEEDLE 4 MM X 32 G) 32 gauge x 5/32" n dle, Use prn, Disp: , Rfl: Insulin Syringe-Needle U-100 1/2 mL 30 gauge x 5/16 syringe, by Does not apply route., Disp : , Rfl: ipratropium-albuterol 0.5 mg-3 mg(2.5 mg base)/3 mL inhalation solution for nebulization, I nhale as needed., Disp: , Rfl: levothyroxine 75 mcg oral tablet, 75 mcg once daily., Disp: , Rfl: magnesium hydroxide 400 mg/5 mL oral suspension, Take by mouth as needed., Disp: , Rfl: metFORMIN SR 500 mg oral tablet extended release 24 hr, 2,000 mg two times daily., Disp: , Rfl: metoprolol succinate 25 mg oral tablet extended release 24 hr, 25 mg two times daily., Disp : , Rfl: mometasone 50 mcg/actuation nasal spray,non-aerosol, Instill in nose as needed., Disp: , R fl: multivitamin oral capsule, Take by mouth once daily., Disp: , Rfl: nbthjnoo-qcldjllqf-xswboozevoelpu 3.5-10,000-1 mg/mL-unit/mL-% otic solution, Instill in e ar as needed., Disp: , Rfl: nitroglycerin 0.4 mg sublingual tablet, sublingual, Place under tongue as needed., Disp: , Rfl: pramipexole 0.25 mg oral tablet, 3 tablets once daily at bedtime., Disp: , Rfl: promethazine 50 mg oral tablet, Take 50 mg by mouth as needed., Disp: , Rfl: sertraline 100 mg oral tablet, 200 mg once daily at bedtime., Disp: , Rfl: tiotropium 18 mcg inhalation capsule, w/inhalation device, Inhale once daily as needed., Di sp: , Rfl: Allergies Allergen Reactions Celecoxib Dyspnea and Tongue Swelling Diclofenac Dyspnea Rizatriptan Anaphylaxis "Swelling of throat & asthma attack" Solifenacin Anaphylaxis Epinephrine Tachycardia Prochlorperazine Unknown Ultram [Tramadol] Unknown Duloxetine Hcl Suicidal Ideation Suicidal thoughts PHYSICAL EXAM BP 122/76 | Pulse 81 | Temp 36.9 C (98.5 F) | Ht 1.588 m (5' 2.5") | Wt 89.7 kg (197 lb 11.2 oz) | SpO2 95% | BMI 35.58 kg/(m^2) HEIGHT: 5ft 2.5ins. WEIGHT 197pounds BLOOD PRESSURE 122/76 BMI 35.2kg/m2 GENERAL: Healthy Appearing, Anxious Uncomfortable LYMPH: No inguinal lymphadenopathy RESPIRATORY: Breathing without difficulty CARDIOVASCULAR: No pedal edema ABDOMEN: Obese No rebound or guarding No HSM, mass, or hernias diffuse lower abdominal TTP SKIN: Warm and dry No vulvar irritation or lesions noted NEUROLOGIC GAIT: Normal SACRAL SENSATION: Grossly Intact LEFT BULBOCAVERNOSUS REFLEX: present RIGHT BULBOCAVERNOSUS REFLEX: present ORIENTATION: Oriented to time, place, and person AFFECT: Normal Anxious GENERAL PELVIC EXAM EXTERNAL GENITALIA: No vestibulitis Normal External Genitalia URETHRA: Normal BLADDER: Non tender to palpation VAGINA normal diameter no suture or mesh erosion seen or palpated rightward deviation with TTP at cuff and right side musculature, overall well supported wit h minimal apex descent and minimal A&P wall descent PELVIC FLOOR MUSCLE TESTS The levator muscles were also assessed. By palpating the levator ani muscles transvaginall y while contracted, the following was noted: Symmetric TEST: RIGHT PELVIC FLOOR MUSCLE TENDERNESS?: Severe TEST: LEFT PELVIC FLOOR MUSCLE TENDERNESS?: Severe FURTHER PELVIC FLOOR FINDINGS: right levator and obturator pain worse with adduction of ri ght leg BLADDER FUNCTION EVALUATION TESTS BLADDER VOLUME FOR COUGH STRESS TEST (ML): 125 ASSESSMENT 55yo 3013 with complex surgical and medical history presenting for evaluation of chronic pe lvic pain. Her exam is reassuring for minimal prolapse and well healed vagina with no eviden ce of suture erosion. Exam notable for significant, diffuse, pelvic floor myalgia. Would not recommend surgical treatment at this time given her exam. Discussed at length the appearanc e of the vagina following SSLF may suggest recurrent prolapse but in essence at this time sh e does not have significant descent that would be helped surgically to remedy her current sx constellation. 1. Pain - Would recommend addition of neuromodulator She has had SE from Lyrica and does not want to try this again, SI with cymbalta. Will star t with a slow titration of gabapentin at 100mg/day to begin, titration sheet provided ERx sent for gabapentin PT - would recommend she try this again but focusing more externally; discussed she can veronica k to the PT about her need for external hip and core muscle strengthening and start there be fore going directly into PFMPT She is amenable to this and a local referral was provided. 2. Incontinence - discussed I would like to see how this improves with PT before intervenin g given her poor response to medications in the past 3. Follow up - 3 months following PTElectronically signed by Clair Kay MD at 7 12:47 PM PDTdocumented in this encounter Plan of Treatment Not on filedocumented as of this encounter Visit Diagnoses + + | Diagnosis | + + | Pelvic pain - Primary Unspecified symptom associated with female genital organs | + + | Pain of right hip joint | + + | Mixed incontinence urge and stress (male)(female) | + + documented in this encounter
--- OUTSIDE RECORDS SUMMARY | ~2019-12-16 | XMS | Encounter Summary ---
Demographics + + + | Address | [address] | | | [place] [address] | + + + | Home Phone [...] [address] | | | | | [place] | | | | | [address] | | + + + + + Care Team Providers + +------+ + | Care Terrazzo Layer Helper Name | Role | Phone | + [...] Care | | 2014 | Collaborati | [facility] | [facility] | | | | [facility] | [address], | [employer] | | | | | [place] | [address] | | | | | [address] | [address] [place] | | | | | [phone] | [address] | | | | | | | [...] in this encounter from [facility] to [facility] Epic on 09/01/2013. documented in this encoun ter Plan of Treatment Not on filedocumented as of this encounter Visit Diagnoses Not on filedocumented in this encounter"
--- OUTSIDE RECORDS SUMMARY | ~2019-12-16 | XMS | Encounter Summary ---
Demographics + + + | Address | [address] | | | [place] [address] | + + + | Home Phone | | + + + | Preferred Language | Unknown | + + + | Marital Status | Single | + + + | Congregation Affiliation | Unknown | + + + | Race | White | + + + | Ethnic Group | Unknown | + + + Author + + + | Author | [facility] | | | and [place] | + + + | Organization | [facility] | | | [...] Team Providers + +------+ + | Care Orchestra Musician Name | Role | Phone | + +------+ + | Mahendra Merchant | PCP | | + +------+ + Reason for Visit + +--------+ + | Reason | Onset | Comments | | | Date | | + +--------+ + | Follow-up | 08/10/ | sx | | | 2020 | | + +--------+ + Encounter Details +--------+ + + + + | Date | Type | Department | Care Team | Description | +--------+ + + + + | 08/10/ | Telephone | [facility] | Armida Cummins, | Follow-up (sx) | | 2019 | | [address] | Nanotechnology Engineering Technologist | | | | | [place], [place] | | | | | | [address] | | | | | | [phone] | | | +--------+ + + + [...] Miscellaneous Notes Telephone Encounter - Armida Cummins, Nanotechnology Engineering Technologist - 08/11/2019 12:27 PM PDTReturned patient call & let her know that the reason why we cancelled sx is because her A1C is too h igh and it needs to be below 7 in order for us to get her rescheduled. Patient was upset sta ting dr. Munroe told her fist it had to be at 7.5 that he keeps changing it & telling her different things. I apologized if there was any miscommunication & let her know to f/u in ab out 3 months & we would need an updated labs completed prior to getting her scheduled for sx again. Patient acknowledged she understood and stated if dr. Munroe could order her a bra ce for her hip to keep it from popping out of place in the mean time. I let her know I was n ot aware of something like that and would send a message to dr. Munroe.Electronically sign ed by Armida Cummins, Nanotechnology Engineering Technologist at 08/11/2019 12:31 PM PDTdocumented in this encoun ter Plan of Treatment Not on filedocumented as of this encounter Visit Diagnoses Not on filedocumented in this encounter"
--- OUTSIDE RECORDS SUMMARY | ~2019-12-16 | XMS | Encounter Summary ---
Demographics + + + | Address | [address] | | | [place] [address] | + + + | Home Phone | | + + + | Preferred Language | Unknown | + + + | Marital Status | Single | + + + | Restorationism Affiliation | Unknown | + + + | Race | White | + + + | Ethnic Group | Unknown | + + + Author + + + | Author | [facility] | | | and [place] | + + + | Organization | [facility] | | | [...] Team Providers + +------+ + | Care Wire Sawyer Name | Role | Phone | + +------+ + | Mahendra Merchant | PCP | | + +------+ + Encounter Details +--------+ + + + + | Date | Type | Department | Care Team | Description | +--------+ + + + + | 05/09/ | Preadmit | [facility] | Dean Munroe, | Canceled (OTHER) | | 2020 | Visit | CENTER PREADMIT | MD [address] | | | | | CLINIC [address] | [place], [place] | | | | | [address] [place], [place] | [address] | | | | | [address] | | | | | | [phone] | | | +--------+ + + + [...] documented as of this encounter Miscellaneous Notes Preadmit Clinic Note - Amador Moon RN - 05/10/2019 12:00 PM PDTPatient notified of li mitation of foot traffic into the hospital and informed of needing to come to [facility] by self. Patient verbalizes understanding. documented in this encounter Plan of Treatment Not on filedocumented as of this encounter Visit Diagnoses Not on filedocumented in this encounter"
--- OUTSIDE RECORDS SUMMARY | ~2019-12-16 | XMS | Encounter Summary ---
Demographics + + + | Address | [address] | | | [place] [address] | + + + | Home Phone | | + + + | Preferred Language | Unknown | + + + | Marital Status | Single | + + + | Religion Affiliation | Unknown | + + + | Race | White | + + + | Ethnic Group | Not or | + + + Author + + + | Author | [facility] | + + + | Organization | [facility] | + + + | Address | Unknown | + + + | Phone | Unavailable | + + + Support + + + + + | Name | Relationship | Address | Phone | + + + + + | Lolis Rodriguez | [place] | [address] | | | | | [place] | | | | | [address] | | + + + + + Care Team Providers + +------+ + | Care Clinical Informatics Manager Name | Role | Phone | + +------+ + | No Pcp Per Patient | PCP | Unavailable | + +------+ + Encounter Details +--------+ + + + + | Date | Type | Department | Care Team | Description | +--------+ + + + + | 10/17/ | Hospital | Registration DEE DEE | | | | 2009 | Encounter | [address] | | | | | | [place], | | | | | | [place] [address] | | | +--------+ + + + [...]
--- OUTSIDE RECORDS SUMMARY | ~2019-12-16 | XMS | Encounter Summary ---
Demographics + + + | Address | [address] | | | [place] [address] | + + + | Home Phone | | + + + | Preferred Language | Unknown | + + + | Marital Status | Single | + + + | Scientologist Affiliation | Unknown | + + + | Race | White | + + + | Ethnic Group | Not or | + + + Author + + + | Author | [facility] | + + + | Organization | [facility] | + + + | Address | Unknown | + + + | Phone | Unavailable | + + + Support + + + + + | Name | Relationship | Address | Phone | + + + + + | Llois Rodriguez | [place] | [address] | | | | | [address] | | | | | [address] | | + + + + + Care Team Providers + +------+ + | Care Greaser And Oiler Name | Role | Phone | + +------+ + | James Horne MD | PCP | | + +------+ + Encounter Details +--------+ + + + + | Date | Type | Department | Care Team | Description | +--------+ + + + + | 01/30/ | Telephone | [facility] | Clair Kay MD | | | 2017 | | [facility] | [address] | | | | | [place] [address] [facility] [address] | | | | | [address] | [place], [place] | | | | | [place], [address] [place] [address] | [address] | | | | | [place], [place] | [phone] | | | | | [address] | | | | | | [phone] | | | +--------+ + + + [...]
--- OUTSIDE RECORDS SUMMARY | ~2019-12-16 | XMS | Encounter Summary ---
Demographics + + + | Address | [address] | | | [place] [address] | + + + | Home Phone | | + + + | Preferred Language | Unknown | + + + | Marital Status | Single | + + + | Mormon Affiliation | Unknown | + + + | Race | White | + + + | Ethnic Group | Unknown | + + + Author + + + | Author | [facility] | | | and [place] | + + + | Organization | [facility] | | | [...] Providers + +------+ + | Care Manager City Name | Role | Phone | + [...] | Pain in | Sharron Schwab, | [address] | | | | | left hip | PA-C [address] | | | | | Other | [address] | [place], [place] | | | | | chronic pain | AVE | [address] | | | | | | [place], | Phone: | | | | | | [place] [address] | [phone] | | | | | | Phone: | Fax: | | | | | | [phone] | [phone] | | | | | | Fax: | | | | | | | [phone] | | + +--------+ + + + + Encounter Details +--------+---------+ + + + | Date | Type | Department | Care Team | Description | +--------+---------+ + + + | 03/16/ | Office | [facility] | Dean Munroe, | Primary | | 2020 | Visit | [address] | [address] | osteoarthritis of | | | | BLVD [place], [place] | [address] [place], [place] | left hip (Primary | | | | [address] | [address] | Dx); Left hip pain | | | | [phone] | | | +--------+---------+ + + + [...] on 03/16/2019), Disp: 30 capsule, Rfl: 0 Vzrfetz-Jjnkcnvxr-Clwuofr D 185-50-100 MG-MG-UNIT CAPS, Calcium Magnesium + [...] The left hip has severe e nd-stage idge-op-frnj osteoarthritis with subchondral sclerosis and cysts on [...] REFERENCE | | | | performed at [facility];[address] | | LAB | | | | [facility] | | [facility] | | | | Blvd;[place] [address] | | LABORATORY | | + + + + + + + + | Specimen | + + | Blood | + + + + + + + | Performing | Address | City/State/Zipcode | Phone Number | | Organization | | | | + + + + + | REFERENCE LAB | [address] [place] [address] | [place] | [phone] | | [facility] | Blvd. | [address] | | | LABORATORY | | | | + + + + + | REFERENCE LAB | [address] [place] [address] | [place] | | | [facility] | Blvd. | [address] | | | LABORATORY | | | [...] REFERENCE | | | | performed at [facility];[address] | | LAB | | | | [place] | | [facility] | | | | Blvd;[place] [address] | | LABORATORY | | + + + + + + + + | Specimen | + + | Blood | + + + + + + + | Performing | Address | City/State/Zipcode | Phone Number | | Organization | | | | + + + + + | REFERENCE LAB | [address] | [place] | [phone] | | [facility] | Blvd. | [address] | | | LABORATORY | | | | + + + + + | REFERENCE LAB | [address] [facility] | [place] | | | [email or web address] | [place]. | [address] | | | LABORATORY | | | [...]
--- OUTSIDE RECORDS SUMMARY | ~2019-12-16 | XMS | Encounter Summary ---
Demographics + + + | Address | [address] | | | [place] [address] | + + + | Home Phone [...] + + + | Author | [facility] | | | and [place] | + + + | Organization | [facility] | | | [...] Providers + +------+ + | Care Box Car Washer Name | Role | Phone | + +------+ + | Mahendra Merchant | PCP | | + +------+ + Reason for Visit +--------+--------+ + | Reason | Onset | Comments | | | Date | | +--------+--------+ + | Pre-Op | 05/16/ | | | | 2020 | | +--------+--------+ + Encounter Details +--------+ + + + + | Date | Type | Department | Care Team | Description | +--------+ + + + + | 05/16/ | Telephone | [facility] | Armida Cummins, | Pre-Op | | 2019 | | [place] [address] | Film Library Clerk | | | | | BLVD [place], [place] | | | | | | [address] | | | | | | [phone] | | | +--------+ + + + [...] encounter Miscellaneous Notes Telephone Encounter - Armida Cummins Medical Assistant - 05/17/2019 3:53 PM PDTSpoke wi th patient in regards to pre op appt on 05/30/2019 and let her know we are cancelling appt & amp; sx until further notice due to everything going on & when we get the ok to schedule pat ients we will call in the order we had the patients scheduled. Patient acknowledged she unde rstood. Tdocumented in this encounter Plan of Treatment Not on filedocumented as of this encounter Visit Diagnoses Not on filedocumented in this encounter"
--- OUTSIDE RECORDS SUMMARY | ~2019-12-16 | XMS | Encounter Summary ---
Demographics + + + | Address | [address] | | | [place] [address] | + + + | Home Phone | | + + + | Preferred Language | Unknown | + + + | Marital Status | Single | + + + | Baptism Affiliation | Unknown | + + + | Race | White | + + + | Ethnic Group | Unknown | + + + Author + + + | Author | [facility] | | | and [place] | + + + | Organization | [facility] | | | and [place] | + + + | Address | Unknown | + + + | Phone | Unavailable | + + + Support + + +---------+ + | Name | Relationship | Address | Phone | + + +---------+ + | Rebecca Hugehs | ECON | Unknown | | + + +---------+ + Care Team Providers + +------+ + | Care On Site Manager Name | Role | Phone | + +------+ + | Mahendra Merchant | PCP | | + +------+ + Reason for Visit + +--------+ + | Reason | Onset | Comments | | | Date | | + +--------+ + | Surgery Appointment | 06/27/ | | | | 2020 | | + +--------+ + Encounter Details +--------+ + + + + | Date | Type | Department | Care Team | Description | +--------+ + + + + | // | Telephone | [facility] | Dean Munroe, | Surgery Appointment | | 2019 | | [address] | | | | | [place], [place] | [place], [place] | | | | | [address] | [address] | | | | | [phone] | | | +--------+ + + + [...] Notes Telephone Encounter - Gi Simmons - 06/28/2019 9:52 AM PDTDr. Munroe patient ca lled and stated that she was returning someone call. I consulted with Dr. Ludwig SAUNDERS and aby miranda stated that she did not call her and there is no documentation that anyone has called her. I relayed this response to the patient she understood. She ask me if she will need clearanc e from all of her Dr.'s again when she is rescheduled for surgery. I let her know that the M A will let her know if she needs clearances again she understood. documented in this encounter Plan of Treatment Not on filedocumented as of this encounter Visit Diagnoses Not on filedocumented in this encounter"
--- OUTSIDE RECORDS SUMMARY | ~2019-12-16 | XMS | Encounter Summary ---
Demographics + + + | Address | [address] | | | [place] [address] | + + + | Home Phone | | + + + | Preferred Language | Unknown | + + + | Marital Status | Single | + + + | Latter Day Affiliation | Unknown | + + + [...] [address] | | | | | [address] | | | | | [address] | | + + + + + Care Team Providers + +------+ + | Care Consulting Sales Executive Name | Role | Phone | + [...] Care | | 2016 | Support | [facility] [place] | [address] | | | | Staff | [address], | [address] [place], [place] | | | | | [place], [place] | [address] | | | | | [address] | [phone] | | | | | [phone] | | | | | | | [address] | | | | | | Schedule [place], | | | | | | [place] [address] | | +--------+ + + + + [...] encounter Progress Notes Tari Shankar RN - 03/29/2015 3:43 PM NORMALaury Javed is here today for port flush. [...]
--- OUTSIDE RECORDS SUMMARY | ~2019-12-16 | XMS | Encounter Summary ---
Demographics + + + | Address | [address] | | | [place] [address] | + + + | Home Phone [...] + + + | Author | [facility] | | | and [place] | + + + | Organization | [facility] | | | [...] Team Providers + +------+ + | Care Joint Machine Operator Name | Role | Phone | + +------+ + | Mahendra Merchant | PCP | | + +------+ + Encounter Details +--------+ + + + + | Date | Type | Department | Care Team | Description | +--------+ + + + + | 05/02/ | Telephone | [facility] | Dean Munroe, | | | 2019 | | [address] | [address] | | | | | [address] | [place], [place] | | | | | [address] | [address] | | | | | [phone] | | | +--------+ + + + [...] this encounter Miscellaneous Notes Telephone Encounter - Michelle Garcia - 05/03/2019 10:13 AM PDTPatient called stating her de ntist cleared her for her surgery on 05/16 w/. Patient would like to know if a pa in yanely of any kind can be prescribed to her in the mean time. Please contact patient at [phone] signed by Michelle Garcia at 05/03/2019 10:14 AM PDTdocumented in t his encounter Plan of Treatment Not on filedocumented as of this encounter Visit Diagnoses Not on filedocumented in this encounter"
--- OUTSIDE RECORDS SUMMARY | ~2019-12-16 | XMS | Encounter Summary ---
Demographics + + + | Address | [address] | | | [place] [address] | + + + | Home Phone [...] + + + | Author | [facility] | | | and [place] | + + + | Organization | [facility] | | | [...] Team Providers + +------+ + | Care Robotic Maintenance Technician Name | Role | Phone | + +------+ + | Gonzales Rivera NP | PCP | | + +------+ + Reason for Visit +--------+--------+ + | Reason | Onset | Comments | | | Date | | +--------+--------+ + | Other | 12/01/ | | | | 2019 | | +--------+--------+ + Encounter Details +--------+ + + + + | Date | Type | Department | Care Team | Description | +--------+ + + + + | 12/01/ | Telephone | [facility] | Rigo Muniz | Other | | 2019 | | ORTHOPEDIC SURGERY | [address] | | | | | [address] | [facility] | | | | | [place], [place] | [place] [address] | | | | | [address] | [phone] | | | | | [phone] | | | +--------+ + + + [...] this encounter Miscellaneous Notes Telephone Encounter - Amie Zarco - 12/07/2018 8:24 AM PDTPatient has medicare a and b and [employer] elephone Encama acevedo - Amie Zarco - 12/06/2018 3:03 PM PDTPATIENT WAS ADVISED THAT SHE NEEDS A FOLLO W UP REFERRAL FROM HER PCP SINCE HER REFERRAL HAS . PATIENT IS WORKING ON GETTING A R EFERRAL FROM HER PCP AND WAS ADVISED FRANCISCO WILL NOT BE BACK UNTIL NEXT WEEK ON 14 OF December. PATIENT STATED UNDERSTANDING P M PDTTelephone Encounter - Jazmin Pendleton - 12/06/2018 12:45 PM PDTLeft message for jing herrera to call office. Needs follow up appointment for left hip with Rigo Muniz. elephone Encounter - Meghan-Patrizia Flores, Horse Stud Manager - 12/02/2018 4:45 PM PDTCalled patient LVM for patient to give us a call back. Derek Muniz PA-C patient needs to be scheduled for an appointment for documentation of he r left hip. 4 :46 PM PDTTelephone Encounter - Soo Sanchez - 12/01/2018 2:46 PM PDTPatient called and left a voicemail. From what she stated our office was waiting to see is she could have an MRI with her heart stints?. She spoke with her doctor and she is cleared to have MRI. Marie whitley, she states that her "Left" hip is the main issue now and would like to have her left hi p be a priority for MRI. He left hip keeps popping in and out and is extremely painful. Pl ease advise and call [phone] signed by Soo Sanchez at 12/01/2018 2:5 0 PM PDTdocumented in this encounter Plan of Treatment Not on filedocumented as of this encounter Visit Diagnoses Not on filedocumented in this encounter
--- OUTSIDE RECORDS SUMMARY | ~2019-12-16 | XMS | Encounter Summary ---
Demographics + + + | Address | [address] | | | [place] [address] | + + + | Home Phone [...] [address] | | | | | [address] [place] | | | | | [address] | | + + + + + Care Team Providers + +------+ + | Care Tank Worker Name | Role | Phone | [...] [id number] | | | | | | [place], [place] | | | | | | [address] | | | | | | [phone] | | | +--------+ + + + [...] + + + + + + | FEF(75) | 49. | % | | | [...] | + + + + + | [facility] | [address] | [place] [address] | | | PATHOLOGY | [address] [...] | + + + + + | [facility] | [address] | [place] [address] | | | PATHOLOGY | [address] [...] | + + + + + | [facility] | [address] | [place] [address] | | | PATHOLOGY | [address] [...] | + + + + + | [facility] | [address] | [place] [address] | | | PATHOLOGY | [address] [...] | + + + + + | [facility] | [address] | [place] [address] | | | PATHOLOGY | [address] [...] | + + + + + | [facility] | [address] | [place] [address] | | | PATHOLOGY | [address] [...] | + + + + + | [facility] | [address] | [place] [address] | | | PATHOLOGY | [address] [...] | + + + + + | [facility] | [address] | [place] [address] | | | PATHOLOGY | [address] | | | + + + + + documented in this encounter Visit Diagnoses Not on filedocumented in this encounter"
--- OUTSIDE RECORDS SUMMARY | ~2019-12-16 | XMS | Encounter Summary ---
Demographics + + + | Address | [address] | | | [place] [address] | + + + | Home Phone [...] Author + + + | Author | [facility] | + + + | Organization | [facility] | + + + | Address | Unknown | + + + | Phone | Unavailable | + + + Support + + + + + | Name | Relationship | Address | Phone | + + + + + | Lolis Rodriguez | [place] | [address] | | | | | [address] | | | | | [address] | | + + + + + Care Team Providers + +------+ + | Care Project Eng Name | Role | Phone | + [...] | | 2001 | Only | Medicine [address] | | | | | [address] | | | | | | Mailcode: L475 | | | | | | Outpatient Clinic | | | | | | [facility] [address] | | | | | | [place], [place] | | | | | | [address] | | | | | | [phone] | | | +--------+ + + + [...] | + + + + + | [facility] | [address] | [place] [address] | | | LABORATORY | | | [...] | | AB | Test performed by [facility] | | | | | | [facility] | | | | | | Laboratories. | | | | + + + + + + + + | Specimen | + + | | + + + + + + + | Performing | Address | City/State/Zipcode | Phone Number | | Organization | | | | + + + + + | [facility] | [address] | [place] [address] | | | LABORATORY | | | [...] | + + + + + | [facility] | [address] | [place] [address] | | | LABORATORY | | | [...] by [facility] | | | | | QUAL, SERUM | [facility] | | | | | | Laboratories. | | | | + + + + + + + + | Specimen | + + | | + + + + + + + | Performing | Address | City/State/Zipcode | Phone Number | | Organization | | | | + + + + + | [facility] | [address] | [place] [address] | | | LABORATORY | | | [...] | CORE AB, | Test performed by [facility] | | | | | SERUM | [facility] | | | | | | Laboratories. | | | | + + + + + + + + | Specimen | + + | | + + + + + + + | Performing | Address | City/State/Zipcode | Phone Number | | Organization | | | | + + + + + | [facility] | [address] | [place] [address] | | | LABORATORY | | | [...] | + + + + + | [facility] | [facility] | [place] [address] | | | PATHOLOGY | [address] | | | + + + + + | [facility] DEPARTMENT OF | [address] | [place] [address] | | | PATHOLOGY | [address] [...] DEPARTMENT OF | [address] | [place] [address] | | | PATHOLOGY | [address] | | | + + + + + | [facility] DEPARTMENT OF | [address] | [place] [address] | | | PATHOLOGY | [address] [...] | + + + + + | [facility] | [address] [facility] [address] | [place] [address] | | | PATHOLOGY | [address] | | | + + + + + | [facility] | [address] [facility] [facility] | [place] [address] | | | PATHOLOGY | [address] [...] Performed At | + + + | [id number] [place] Phoned | [facility] | | | DEPARTMENT OF | | | PATHOLOGY | + + + + + + + + | Performing | Address | City/State/Zipcode | Phone Number | | Organization | | | | + + + + + | [facility] | [address] | [place] [address] | | | PATHOLOGY | [address] | | | + + + + + | [facility] | [address] | [place] [address] | | | PATHOLOGY | [address] | | | + + + + + HDL CHOLESTEROL (02/08/2002 9:43 AM PST) + + + + + + | Component | Value | Ref Range | Performed | Pathologist | | | | | At | Signature | + + + + + + | HDL | 26 (L)Comment: | >40 mg/dL | [facility] | | | CHOLESTEROL | HDL Reference [...] + + + + + | [facility] DEPARTMENT OF | [address] | [place] [address] | | | PATHOLOGY | [address] | | | + + + + + | [facility] DEPARTMENT | [address] | [place] [address] | | | PATHOLOGY | [address] [...] + + + + + | [facility] DEPARTMENT OF | [address] [facility] | [place] [address] | | | PATHOLOGY | [address] | | | + + + + + | [facility] DEPARTMENT OF | [address] | [place] [address] | | | PATHOLOGY | [address] [...] + | [place] DEPARTMENT OF | [address] | [place] [address] | | | PATHOLOGY | [address] | | | + + + + + | [facility] DEPARTMENT OF | [address] | [place] [address] | | | PATHOLOGY | [address] [...] | + + + + + | [facility] | [address] | [place] [address] | | | PATHOLOGY | [address] | | | + + + + + | [facility] | [address] | [place] [address] | | | PATHOLOGY | [address] [...] | + + + + + | [facility] | [address] | [place] [address] | | | PATHOLOGY | [address] | | | + + + + + | [facility] | [address] | [place] [address] | | | PATHOLOGY | [address] | | | + + + + + documented in this encounter Visit Diagnoses Not on filedocumented in this encounter"
--- OUTSIDE RECORDS SUMMARY | ~2019-12-16 | XMS | Encounter Summary ---
Demographics + + + | Address | [address] | | | [place] [address] | + + + | Home Phone [...] Team Providers + +------+ + | Care Structural Engineering Drafting Officer Name | Role | Phone | [...] [place] | | | | | [place] | | | | | | [address] | | | | | | [phone] | | | +--------+ + + + [...]
--- OUTSIDE RECORDS SUMMARY | ~2019-12-16 | XMS | Encounter Summary ---
Demographics + + + | Address | [address] | | | [place] [address] | + + + | Home Phone | | + + + | Preferred Language | Unknown | + + + | Marital Status | Single | + + + | Confucianism Affiliation | Unknown | + + + | Race | White | + + + | Ethnic Group | Unknown | + + + Author + + + | Author | [facility] | | | and [place] | + + + | Organization | [facility] | | | and [...] Team Providers + +------+ + | Care Retail Shift Manager Name | Role | Phone | [...] | Follow-up | | 2019 | | [facility] [address] [place] [place] [address] | Assistant Dean Of Students | | | | | [place], [place] | | | | | | [address] | | | | | | [phone] | | | +--------+ + + + [...] Miscellaneous Notes Telephone Encounter - Armida Cummins Assistant Dean Of Students - 08/12/2019 3:48 PM PDTReturned patient call [...]
--- OUTSIDE RECORDS SUMMARY | ~2019-12-16 | XMS | Encounter Summary ---
Demographics + + + | Address | [address] | | | [place] [address] | + + + | Home Phone [...] + + + | Author | [facility] | | | and [place] | + + + | Organization | [facility] | | [...] Providers + +------+ + | Care Tank Truck Driver Name | Role | Phone | + [...] + + | 07/25/ | Telephone | [facility] | Dean Munroe, | Other (Covid 19 | | 2020 | | [address] | screening) | | | | [place], [place] | [address] [place], [place] | | | | | [address] | [address] | | | | | [phone] | | | +--------+ + + + [...] - 07/26/2019 2:30 PM PDTProactive screening for [facility] office visit to help ensure the [...]
--- OUTSIDE RECORDS SUMMARY | ~2019-12-16 | XMS | Clinical Summary ---
Demographics + + + | Address | [address] | | | [place] [address] | + + + | Home Phone [...] | Author | [facility] | | | and [place] | + + + | Organization | [facility] | | | and [...] Providers + +------+ + | Care Search And Rescue Officer Name | Role | Phone | [...] + + + + | Tramadol | Anaphylaxis, Hives | High | 09/02/19 | | | [...] | | succinate | | | | /20 | | e | | (TOPROL-XL) 25 [...] mg | the tongue. | | | /20 | | e | | SL tablet [...] Syringe-Needle U-100 | QHS | | | 20 | | e | | (INSULIN SYRINGE [...] + + + +---------+------+------+-------+ | atorvaSTATin | | | 0 | 10/2 | | Activ | | (LIPITOR) 80 MG | | | | 5/20 | | e | | tablet | | | | 19 | | | + + + +---------+------+------+-------+ | | Calcium Magnesium + | | 0 | | | Activ | | Nlwrqkv-Lotctphvr-Bs | D | | | | | e | | percy Ash 185-50-100 | | | | | | | | MG-MG-UNIT CAPS | | | | | | | + + + +---------+------+------+-------+ | COMBIGAN 0.2-0.5 % | | | 0 | 12/1 | | Activ | | ophthalmic solution | | | | 0/20 | | e | | | | | | 19 | | | + + + +---------+------+------+-------+ | diazePAM (VALIUM) | | | 0 | 09/0 | | Activ | | 10 MG tablet | | | | 4/20 | | e | | | | | | 19 | | | + + + +---------+------+------+-------+ | DUREZOL 0.05 % | | | 0 | 11/0 | | Activ | | EMUL opthalmic soln | | | | 5/20 | | e | | | | | | 19 | | | + + + +---------+------+------+-------+ | BRIDGER SNOW | | | 0 | 08/1 | | Activ | | 100 UNIT/ML | | | | 4/20 | | e | | injection (pen) | | | | 19 | | | + + + +---------+------+------+-------+ | lamoTRIgine | | | 0 | 11/0 | | Activ | | (LAMICTAL) 200 MG | | | | 4/20 | | e | | tablet | | | | 19 | | | + + + +---------+------+------+-------+ | OZEMPIC, 0.25 [place] | | | 0 | 10/2 | | Activ | | 0.5 MG/DOSE, 2 | | | | 4/20 | | e | | MG/1.5ML injection | | | | 19 | | | + + + +---------+------+------+-------+ | prazosin | | | 0 | 11/1 | | Activ | | (MINIPRESS) 5 mg | | | | 2/20 | | e | | capsule | | | | 19 | | | + + + +---------+------+------+-------+ | Aspirin | Take 81 mg by mouth. | | 0 | 01/1 | | Activ | | Buf,IzFpsw-ReOxxe-Xz | | | | 0/20 | | e | | O, 81 MG TABS | | | | 15 | | | + + + +---------+------+------+-------+ | JARDIANCE 10 MG | take 1 tablet by | | 0 | 05/1 | | Activ | | tablet | mouth once daily | | | 2/20 | | e | | | | | | 20 | | | + + + +---------+------+------+-------+ | fenofibrate | take 1 tablet by | | 0 | 05/1 | | Activ | | (TRICOR) 145 mg | mouth once daily | | | 9/20 | | e | | tablet | | | | 20 | | | + + + +---------+------+------+-------+ | | take 1 tablet by | | 0 | 05/2 | | Activ | | HYDROcodone-acetamin | mouth every 6 hours | | | 2/20 | | e | | ophen (NORCO) 5-325 | if needed for pain | | | 20 | | | | mg per tablet | | | | | | | + + + +---------+------+------+-------+ | ibuprofen | take 1 tablet by | | 0 | 05/1 | | Activ | | (ADVIL,MOTRIN) 800 | mouth every 8 hours | | | 2/20 | | e | | MG tablet | if needed for pain | | | 20 | | | + + + +---------+------+------+-------+ | lamoTRIgine | | | 0 | 05/2 | | Activ | | (LAMICTAL) 150 MG | | | | 9/20 | | e | | tablet | | | | 20 | | | + + + +---------+------+------+-------+ | oxyCODONE | Take 1 tablet by | 10 | 0 | 06/0 | | Activ | | (ROXICODONE) 5 mg | mouth every 6 hours | tablet | | 3/20 | | e | | tablet | as needed for Pain. | | | 20 | | | + + + +---------+------+------+-------+ Active Problems + + + | Problem | Noted Date | + + + | Primary osteoarthritis of left hip | 04/27/2019 | + + + + + | Overview: Added automatically from request for surgery | | [id number] | + + + + + | Overactive bladder | [...] + + + + | Overview: Overview: [id number] Assessment & Plan: Colonoscopy | | procedure [...] + + | Overview: Overview: | | [place] x 5; has stent; last angioplasty May [...] | + + + + + | Med Mgmt: BUN | | | | | | 1 | | | + + + + + | Med Mgmt: Cr | | | | | | 1 | | | + + + + + | Med Mgmt: HBA1C | | | | | | 1 | | | + + + + + | Med Mgmt: TSH | | | | | | 1 | | | + + + + + | Med Mgmt: eGFR | 08/24/196 | | | | | 1 | | | + + + + + | Medication | | | | | Management | 1 | | | + + + + + | Vaccine: | | | | | Pneumococcal 19-64 | 7 | | | | (1 of 1 - PPSV23) | | | | + [...] + + | Vaccine: Influenza | | 10/23/19 | | | (#1) | 0 | 19, | | | | | 10/31/19 | | | | | 18, | | | | | 11/14/19 | | | | | 17, | | | | | Addition | | | | | al | | | | | history | | | | | exists | | + + + + + | Vaccine: | | 08/11/19 | | | Dtap/Tdap/Td (4 - | 8 | 18, | | | Td) | | 10/09/19 | | | | | 14, | | | | | 07/13/19 | | | | | 10 | | + + + + + | Vaccine: Zoster | Completed | 01/01/20 | | | | | 19, | | | | | 10/31/19 | | | | | 18 | | + + + + + [...] +--------+ +---------+--------+ | MEDICARE | MEDICA | [id number] | 10/25/19 | [phone] | | Medica | | | RE | | 01-Pre | 5 | | re | | | PART A | | sent | | | | | | AND B | | | | | | + +--------+ +--------+ +---------+--------+ | MEDICARE | MEDICA | [id number] | 10/25/19 | [phone] | | Medica [...] Self | [birth year] | [address] | | | al/Fam | | 1961 | [phone] | [address] [place], [place] | | | de | | | 9 (Home) | [address] | + +--------+ +--------+ + + | Laury Crockett | Person | Self | [birth year] | | [address] | | | al/Fam | | 1961 | [phone] | [address] [place], [place] | | | de | | | 9 (Gays) | [address] | + +--------+ +--------+ + + Advance Directives + + + + + | Type | Date Recorded | Patient | Explanation | | | | Glove Printer | | + + + + + | Power of | | | | | Mobile Home Lot Utility Worker | | | | + + + + + | Advance | 04/29/2019 10:34 | | no | | Directive | AM | | | + + + + +
--- OUTSIDE RECORDS SUMMARY | ~2019-12-16 | XMS | Encounter Summary ---
Demographics + + + | Address | [address] | | | [place] [address] | + + + | Home Phone | | + + + | Preferred Language | Unknown | + + + | Marital Status | Single | + + + | Sikhism Affiliation | Unknown | + + + [...] [address] | | | | | [address], [place] | | | | | [address] | | + + + + + Care Team Providers + +------+ + | Care Rehabilitation Inspector Name | Role | Phone | [...] as of this encounter Progress Notes Interface, Product Coordinator In - 01/14/2006 5:11 AM [facility] [place] [address] [address] or June 12, 1999 Marlon Freeman D.O. [facility] [address] [place] [address] RE: LAURY MIDDLETON MR #: [id number] Dear Dr. Freeman: I had the pleasure [...] three cardiac arteriograms. MEDICATIONS 1. Prilosec 2. Erda. 3. Accolate. 4. Evista. 4. Promethazine. 5. [...] attempt to obtain her ultrasound reports from [facility]. I am still entertaining the possibility of [...] Naun Carias M.D. HERI / LUIS EDUARDO [id number] / [id number] / [id number] / [id number] signed by Interface, Product Coordinator In at 01/14/2006 5:11 AM PSTdocume nted in this encounter Plan of Treatment Not on filedocumented as of this encounter Visit Diagnoses Not on filedocumented in this encounter"
--- OUTSIDE RECORDS SUMMARY | ~2019-12-16 | XMS | Encounter Summary ---
Demographics + + + | Address | [address] | | | [place] [address] | + + + | Home Phone [...] + + + | Author | [facility] | | | and [place] | + + + | Organization | [facility] | | | [...] Team Providers + +------+ + | Care Dipping Machine Operator Name | Role | Phone | + +------+ + | Mahendra Merchant | PCP | | + +------+ + Reason for Visit + +--------+ + | Reason | Onset | Comments | | | Date | | + +--------+ + | Surgery Appointment | 08/09/ | | | | 2020 | | + +--------+ + Encounter Details +--------+ + + + + | Date | Type | Department | Care Team | Description | +--------+ + + + + | 08/09/ | Telephone | [facility] | Dean Munroe, | Surgery Appointment | | 2019 | | [place] [address] | | | | | [place], [place] | [place], [place] | | | | | [address] | [address] | | | | | [phone] | | | +--------+ + + + [...] Notes Telephone Encounter - Gi Simmons - 08/10/2019 2:14 PM PDTDr. Munroe patient ca lled and wants to know why her surgery is cancelled. Please call her back to discuss.Electro nically signed by Gi Simmons at 08/10/2019 2:15 PM PDTdocumented in this encounter Plan of Treatment Not on filedocumented as of this encounter Visit Diagnoses Not on filedocumented in this encounter"
--- OUTSIDE RECORDS SUMMARY | ~2019-12-16 | XMS | Encounter Summary ---
Demographics + + + | Address | [address] | | | [place] [address] | + + + | Home Phone [...] [address] | | | | | [address] | | | | | [address] | | + + + + + Care Team Providers + +------+ + | Care Strike Planning Applications Name | Role | Phone | + [...] | | | | | Khadra Qu[place], | | | | | | [place] [address] | | | +--------+ + + + [...]
--- OUTSIDE RECORDS SUMMARY | ~2019-12-16 | XMS | Encounter Summary ---
Demographics + + + | Address | [address] | | | [place] [address] | + + + | Home Phone [...] Team Providers + +------+ + | Care Community Arts Worker Name | Role | Phone | + +------+ + | Mahendra Merchant | PCP | | + +------+ + Reason for Visit + +--------+ + | Reason | Onset | Comments | | | Date | | + +--------+ + | Cancel Surgery | 05/09/ | | | | 2020 | | + +--------+ + Encounter Details +--------+ + + + + | Date | Type | Department | Care Team | Description | +--------+ + + + + | 05/09/ | Telephone | [facility] | Armida Cummins, | Cancel Surgery | | 2019 | | [address] | Carton Stenciler | | | | | [place], [place] | | | | | | [address] | | | | | | [phone] | | | +--------+ + + + [...] Encounter - Armida Cummins Medical Assistant - 05/10/2019 12:32 PM PDTPatient called wanting to reschedule her sx for her hip. Patient was ok with new date of 06/20/2019. docume nted in this encounter Plan of Treatment Not on filedocumented as of this encounter Visit Diagnoses Not on filedocumented in this encounter"
--- OUTSIDE RECORDS SUMMARY | ~2019-12-16 | XMS | Encounter Summary ---
Demographics + + + | Address | [address] | | | [place] [address] | + + + | Home Phone [...] Team Providers + +------+ + | Care Sidewalk Inspector Name | Role | Phone | [...] (regarding | | 2020 | | [place] [facility] [address] | Pulmonologist | patient requesting | | | | [place], [place] | | jackson cortes) | | | | [address] | | | | | | [phone] | | | +--------+ + + + [...] the trapeze bar to be sent to [place] because the last time she made the t rip here for a interventional physiatrist appt she had a really hard time. Please call patient at elephone Encounter - Armida Leslie, Pulmonologist - 04/07/2019 1:27 PM PSTTried calling patient to let her know that her RX request for a Trapeze Bar will be ready for her to machine pecan picker at front with o ne of the clinical research physician girls. Could not leave because mailbox was full. documented in this encounte r Plan of Treatment Not on filedocumented as of this encounter Visit Diagnoses Not on filedocumented in this encounter"
--- OUTSIDE RECORDS SUMMARY | ~2019-12-16 | XMS | Encounter Summary ---
Demographics + + + | Address | [address] | | | [place] [address] | + + + | Home Phone [...] + + + | Author | [facility] | | | and [place] | + + + | Organization | [facility] | | | [...] Team Providers + +------+ + | Care Mail Distribution Scheme Examiner Name | Role | Phone | + [...] + + | 03/15/ | Office | [facility] | Rigo Muniz | Right hip pain | | 2019 | Visit | ORTHOPEDIC SURGERY | [address] | (Primary Dx); | | | | [address] [place] | [address] [place] | Primary | | | | [place], [place] | [place] [address] | osteoarthritis of | | | | [address] | [phone] | right knee; Primary | | | | [phone] | | osteoarthritis of | | | [...] was previously on fentanyl patches. She has ana frank referred to pain management but her insurance [...] re pain management. Consideration was given to Ruiz but I do not have kidney function [...] placed this released's office and to mey og find out if her stent is compatible. She knows that she had the surgery in [facility]. Recommend that once she finds that she [...] program. This note was dictated using the [employer] voice recognition system. Minor errors in grammar [...]
--- OUTSIDE RECORDS SUMMARY | ~2019-12-16 | XMS | Encounter Summary ---
Demographics + + + | Address | [address] | | | [place] [address] | + + + | Home Phone [...] + | Author | [facility] | | | and [place] | + + + | Organization | [facility] | | | and [...] Team Providers + +------+ + | Care Signs And Displays Salesperson Name | Role | Phone | + [...] + + | 02/20/ | Emergency | [facility] | Franck Dowd | Chronic left hip | | 2019 | | MEDICAL CENTER | MD [address] | pain (Primary Dx); | | | | EMERGENCY CENTER | [address] [place], [place] | Primary | | | | [address] [facility] | [address] | osteoarthritis of | | | | [place], [place] | [phone] | left hip; Smokers' | | | | [address] | | cough (HCC) | | | | [phone] | | | +--------+ + + + [...] chronic pain, approved by the [facility] and [facility] [employer], you should receive all of your pain medications through a single provider - either a primary care provider or specialist (such as a pain-co ntrol specialist). Per [facility] guidelines, emergency department interventions are very limited and we are not able to give injections for chronic pain problems, even in [facility] setting of severe recent worsening. [...] your pain condition we comply with the [facility] guidelines for your safety. To help facilitate your outpatient management of your pain we will send a noti fication of this visit to your primary care physician and/or your pain vector control assistant. AttachmentsThe following attachments cannot be sent through Care Everywhere.Osteoarthritis, Living with (Prydeinig)Osteoarthritis, What Is (Prydeinig)documented in this encounter Medications at Time of [...] | 0 | 03/04/19 | | | Buf,WhLulk-GwHnlq-Fd | | | | 15 | | [...] Dowd MD - 02/20/2019 1:53 AM PST [facility] Department of Emergency Medicine No flowsheet [...] file Gets together: Not on file Attends anabaptism service: Not on file Active member of [...] Rivera NP. Specialty: Nurse Practitioner Contact information: [address] [facility] [place] [address] Schedule an appointment as soon as possible for a visit with [facility]. Specialty: Orthopedic Surgery Contact information: [address] [facility] [address] Discharge Medications: New Prescriptions BENZONATATE [...]
--- OUTSIDE RECORDS SUMMARY | ~2019-12-16 | XMS | Encounter Summary ---
Demographics + + + | Address | [address] | | | [place] [address] | + + + | Home Phone [...] + + + | Author | [facility] | + + + | Organization | [facility] | + + + | Address | Unknown | + + + | Phone | Unavailable | + + + Support + + + + + | Name | Relationship | Address | Phone | + + + + + | Lolis Rodriguez | SCOTTY | [address] | | | | | [place] | | | | | [address] | | + + + + + Care Team Providers + +------+ + | Care Senior Cobol Developer Name | Role | Phone | [...] | | | postprocedur | LEGACY | [place] | | | | | al | MEDICAL | [address] | | | | | status(V45.8 | GROUP | [place], | | | | | 9) | [place] | [place], [place] | | | | | Procedures | [address] | [address] | | | | | PORT FLUSH | [address] | Phone: | | | | | LABS | [address] | [phone] | | | | | | [place], [place] | Fax: | | | | | | [address] | [phone] | | | | | | Phone: | | | | | | | [phone] | | | | | | | Fax: | | | | | | | [phone] | | +--------+--------+ + + + + Encounter Details +--------+ + + + + | Date | Type | Department | Care Team | Description | +--------+ + + + + | 09/12/ | [facility] | [facility] | [place] Nurse | Central Line Care | | 2013 | l Support | [facility] [place] | [address] | ([facility]) | | | Staff | [address], | [address] [place], [place] | | | | | [place], [place] | [address] | | | | | [address] | [phone] | | | | | [phone] | | | | | | | Sree Jain Ma | | | | | | Schedule [place], | | | | | | [place] [address] | | +--------+ + + + + [...] Raya Luna RN - 09/12/2013 5:34 PM ROSALIELaury Javed is here today for a port flush. Port located in the right chest. It was accessed, flushed and deaccessed per protocol using a 1 inch access device. Blood return present. Site unremarkable, and no labs were ordered. P atient tolerated procedure without complication. At discharge, alert & oriented x 3. No ac knik distress, and mood & affect appropriate. Instructed [...]
--- OUTSIDE RECORDS SUMMARY | ~2019-12-16 | XMS | Encounter Summary ---
Demographics + + + | Address | [address] | | | [place] [address] | + + + | Home Phone [...] [address] | | | | | [place] | | | | | [address] | | + + + + + Care Team Providers + +------+ + | Care Hematology Supervisor Name | Role | Phone | + +------+ + | Mahendra Cash MD | PCP | | + +------+ + Encounter Details +--------+ + + + + | Date | Type | Department | Care Team | Description | +--------+ + + + + | 12/08/ | Document-Sc | Health Information | Unknown . | | | 2014 | anned | Services [address] | | | | | [address] | | | | | | Mailcode: [id number] | | | | | | [facility] | | | | | | [place], [place] | | | | | | [address] | | | | | | [phone] | | | +--------+ + + + [...]
--- OUTSIDE RECORDS SUMMARY | ~2019-12-16 | XMS | Encounter Summary ---
Demographics + + + | Address | [address] | | | [place] [address] | + + + | Home Phone [...] + + + | Author | [facility] | | | and [place] | + + + | Organization | [facility] | | [...] Team Providers + +------+ + | Care Staff Developer Name | Role | Phone | [...] + + | 07/26/ | Telephone | [facility] | Dean Munroe, | Results | | 2019 | | [place] [address] | | | | | [place], [place] | [place], [place] | | | | | [address] | [address] | | | | | [phone] | | | +--------+ + + + [...]
--- OUTSIDE RECORDS SUMMARY | ~2019-12-16 | XMS | Encounter Summary ---
Demographics + + + | Address | [address] | | | [place] [address] | + + + | Home Phone | | + + + | Preferred Language | Unknown | + + + | Marital Status | Single | + + + | Sabianism Affiliation | Unknown | + + + | Race | White | + + + | Ethnic Group | Unknown | + + + Author + + + | Author | [facility] | | | and [place] | + + + | Organization | [facility] | | | [...] Team Providers + +------+ + | Care Registered Nurse Supervisor Name | Role | Phone | + +------+ + | Mahendra Merchant | PCP | | + +------+ + Reason for Visit + +--------+ + | Reason | Onset | Comments | | | Date | | + +--------+ + | Follow-up | 08/10/ | | | | 2020 | | + +--------+ + Encounter Details +--------+ + + + + | Date | Type | Department | Care Team | Description | +--------+ + + + + | 08/10/ | Telephone | [facility] | Armida Cummins, | Follow-up | | 2019 | | [place] [address] [place] [address] | Hospital Aide | | | | | [place], [place] | | | | | | [address] | | | | | | [phone] | | | +--------+ + + + [...] Notes Telephone Encounter - Gi Simmons - 08/11/2019 11:29 AM PDTDr. Munroe patient tr ied calling back. Please call her back again. elephone Encounter - Armida Cummins Hospital Aide - 08/11/19 10:32 AM PDTTried returning patient call on why we cancelled sx, patient did not answer. Left VM. P DTdocumented in this encounter Plan of Treatment Not on filedocumented as of this encounter Visit Diagnoses Not on filedocumented in this encounter"
--- OUTSIDE RECORDS SUMMARY | ~2019-12-16 | XMS | Encounter Summary ---
Demographics + + + | Address | [address] | | | [place] [address] | + + + | Home Phone [...] + + + | Author | [facility] | + + + | Organization | [facility] | + + + | Address | Unknown | + + + | Phone | Unavailable | + + + Support + + + + + | Name | Relationship | Address | Phone | + + + + + | Lolis Rodriguez | SCOTTY | [address] | | | | | [place] | | | | | [address] | | + + + + + Care Team Providers + +------+ + | Care Motorcycle Repair Shop Supervisor Name | Role | Phone | [...] Care | | 2015 | Collaborati | [facility] | MD CLARISA [address] | | | | ve Order | [address], | GROUP [place] [address] | | | | | [place], [place] | [address] | | | | | [address] | [address] [place], [place] | | | | | [phone] | [address] | | | | | | | [...]
--- OUTSIDE RECORDS SUMMARY | ~2019-12-16 | XMS | Encounter Summary ---
Demographics + + + | Address | [address] | | | [place] [address] | + + + | Home Phone [...] Team Providers + +------+ + | Care Angle Bender Name | Role | Phone | + [...] Cancel Surgery | | 2019 | | [address] | Mushroom Growing Supervisor | | | | | [place], [place] | | | | | | [address] | | | | | | [phone] | | | +--------+ + + + [...]
--- OUTSIDE RECORDS SUMMARY | ~2019-12-16 | XMS | Encounter Summary ---
Demographics + + + | Address | [address] | | | [place] [address] | + + + | Home Phone | | + + + | Preferred Language | Unknown | + + + | Marital Status | Single | + + + | Church Affiliation | Unknown | + + + | Race | White | + + + | Ethnic Group | Unknown | + + + Author + + + | Author | [facility] | | | and [place] | + + + | Organization | [facility] | | [...] Team Providers + +------+ + | Care Continuous Improvement Black Belt Name | Role | Phone | + [...] of left | [address] | [place], [place] | | | | | hip | [place], | [address] | | | | | Procedures | [place] [address] | Phone: | | | | | [facility] | Phone: | [phone] | | | | | | [phone] | Fax: | | | | | | Fax: | [phone] | | | | | | [phone] | | + + + + + [...] | Pain in | Sharron Zaheer, | [place] [address] | | | | | left hip | [address] | | | | | Other | [address] | [place], [place] | | | | | chronic pain | AVE | [address] | | | | | | [place], | Phone: | | | | | | [place] [address] | [phone] | | | | | | Phone: | Fax: | | | | | | [phone] | [phone] | | | | | | Fax: | | | | | | | [phone] | | + +--------+ + + + [...] osteoarthritis of | | | | BLVD [place], [place] | [place], [place] | left hip (Primary | | | | [address] | [address] | Dx) | | | | [phone] | | | +--------+---------+ + + + [...] different fr om the original. 07/26/2019 Email Address:[email or web address] Chief Complaint Chief Complaint Patient presents with [...] into the lungs., Disp: , Rfl: Aspirin Buf,ReIpak-TlYtyj-TgN, 81 MG TABS, Take 81 mg by mouth., Disp: , Rfl: atorvaSTATin (LIPITOR) 80 MG tablet, , Disp: , Rfl: Ziqdrrl-Sgljahcpo-Sudqifh D 185-50-100 MG-MG-UNIT CAPS, Calcium Magnesium + [...] subsidence. The left hip has severe end-stage kwdw-cr-pldy osteoarthritis with subchondral sclerosis and cysts on [...] in this e ncounter H&P Notes Dean uMnroe MD - 07/26/2019 2:40 PM PDTFormatting of this note might be different fr om the original. 07/26/2019 Email Address:[email or web address] Chief Complaint Chief Complaint Patient presents with Pre-op Exam L TORI HPI Laury Crockett is a 58 y.o. female who presents with a chief complaint of Chief Complaint Patient presents with Pre-op Exam L TOIR . The patient's symptoms have been ongoing [...] into the lungs., Disp: , Rfl: Aspirin Buf,ZsRwwj-EiObjm-BrP, 81 MG TABS, Take 81 mg by mouth., Disp: , Rfl: atorvaSTATin (LIPITOR) 80 MG tablet, , Disp: , Rfl: Yschozs-Uwhlbbnmg-Modpphw D 185-50-100 MG-MG-UNIT CAPS, Calcium Magnesium + [...] subsidence. The left hip has severe end-stage xtgq-nf-ppmy osteoarthritis with subchondral sclerosis and cysts on [...]
--- OUTSIDE RECORDS SUMMARY | ~2019-12-16 | XMS | Encounter Summary ---
Demographics + + + | Address | [address] | | | [place] [address] | + + + | Home Phone [...] [address] | | | | | [address], [place] | | | | | [address] | | + + + + + Care Team Providers + +------+ + | Care Plastics Design Engineer Name | Role | Phone | [...] + + + + | [facility] | [address] | [place] [address] | | | LABORATORY | | | [...] | + + + + + | [facility] | [address] | [place] [address] | | | LABORATORY | | | [...] | + + + + + | [facility] | [address] | [place] [address] | | | LABORATORY | | | [...] | + + + + + | [facility] | [address] | [place] [address] | | | LABORATORY | | | [...] + + + | [facility] | [address] | [place] [address] | | | LABORATORY | | | [...] + + + + | [facility] | [address] | [place] [address] | | | LABORATORY | | | [...] + + + | [facility] | [address] | [place] [address] | | | LABORATORY | | | [...] + + | [facility] | [address] [facility] | [place] [address] | | | PATHOLOGY | [address] | | | + + + + + | [facility] | [address] [place] [address] | [place] [address] | | | PATHOLOGY | [address] [...] | + + + + + | [facility] | [address] [facility] | [place] [address] | | | PATHOLOGY | [address] | | | + + + + + | [facility] | [address] [facility] | [place] [address] | | | PATHOLOGY | [address] | | | + + + + + documented in this encounter Visit Diagnoses Not on filedocumented in this encounter"
--- OUTSIDE RECORDS SUMMARY | ~2019-12-16 | XMS | Encounter Summary ---
Demographics + + + | Address | [address] | | | [place] [address] | + + + | Home Phone [...] Team Providers + +------+ + | Care Tub Wash Operator Name | Role | Phone | [...] | Pre-Op | | 2019 | | [place] [address] [facility] | Property And Supply Officer | | | | | BLVD [place], [place] | | | | | | [address] | | | | | | [phone] | | | +--------+ + + + [...] Miscellaneous Notes Telephone Encounter - Armida Cummins Property And Supply Officer - 05/17/2019 3:11 PM PDTTried ca lling [...]
--- OUTSIDE RECORDS SUMMARY | ~2019-12-16 | XMS | Encounter Summary ---
Demographics + + + | Address | [address] | | | [place] [address] | + + + | Home Phone | | + + + | Preferred Language | Unknown | + + + | Marital Status | Single | + + + | Catholic Affiliation | Unknown | + + + | Race | White | + + + | Ethnic Group | Unknown | + + + Author + + + | Author | [facility] | | | and [place] | + + + | Organization | [facility] | | | [...] Team Providers + +------+ + | Care Generator Technician Name | Role | Phone | [...] 2020 | | [address] | Deputy Attorney General | | | | | [place], [place] | | | | | | [address] | | | | | | [phone] | | | +--------+ + + + [...] | | LAB | | | | [facility] | | [facility] | | | | [address];[place] [address] | | LABORATORY | | + + + + + + + + | Specimen | + + | Blood | + + + + + + + | Performing | Address | City/State/Zipcode | Phone Number | | Organization | | | | + + + + + | REFERENCE LAB | [address] [place] [address] | [place], [place] | [phone] | | [facility] | [address] | [address] | | | LABORATORY | | | | + + + + + | REFERENCE [facility] | [address] [place] [address] | [place], [place] | | | [facility] | Bl[address] | [address] | | | LABORATORY | | | [...] | | [facility] | | | | Blvd;[place] [address] | | LABORATORY | | + + + + + + + + | Specimen | + + | Blood | + + + + + + + | Performing | Address | City/State/Zipcode | Phone Number | | Organization | | | | + + + + + | REFERENCE LAB | [address] [place] [address] | [place] | [phone] | | [facility] | Bl[address] | [address] | | | LABORATORY | | | | + + + + + | REFERENCE LAB | [address] [place] [address] | [place] | | | [facility] | Bl[address] | [address] | | | LABORATORY | | | | + + + + + documented in this encounter Visit Diagnoses + + | Diagnosis | + + | Left hip pain Pain in joint, pelvic region and thigh | + + documented in this encounter"
--- OUTSIDE RECORDS SUMMARY | ~2019-12-16 | XMS | Encounter Summary ---
Demographics + + + | Address | [address] | | | [place] [address] | + + + | Home Phone [...] Author | [facility] | | | and [place] | + + + | Organization | [facility] | | [...] Team Providers + +------+ + | Care Customer Experience Strategist Name | Role | Phone | + [...] | 2019 | | [address] [facility] [address] | Aircraft Riveter | | | | | [place] | | | | | | [address] | | | | | | [phone] | | | +--------+ + + + [...] Miscellaneous Notes Telephone Encounter - Armida Cummins, Aircraft Riveter - 05/04/2019 9:47 AM PDTTried ca lling [...]
--- OUTSIDE RECORDS SUMMARY | ~2019-12-16 | XMS | Encounter Summary ---
Demographics + + + | Address | [address] | | | [place] [address] | + + + | Home Phone | | + + + | Preferred Language | Unknown | + + + | Marital Status | Single | + + + | Buddhism Affiliation | Unknown | + + + | Race | White | + + + | Ethnic Group | Unknown | + + + Author + + + | Author | [facility] | | | and [place] | + + + | Organization | [facility] | | [...] Providers + +------+ + | Care Electric Locomotive Crane Operator Name | Role | Phone | [...] | | [address] [place] | [place] [address] | | | | | [place] [address] | | | | | | [phone] | | | +--------+ + + + [...]
--- OUTSIDE RECORDS SUMMARY | ~2019-12-16 | XMS | Encounter Summary ---
Demographics + + + | Address | [address] | | | [place] [address] | + + + | Home Phone [...] Team Providers + +------+ + | Care Svp Digital Sales Name | Role | Phone | [...] | unspecified | | | | [address] | [place] | chronicity (Primary | | | | [place], [place] | [place] [address] | Dx) | | | | [address] | [phone] | | | | | [phone] | | | +--------+ + + + [...]
--- OUTSIDE RECORDS SUMMARY | ~2019-12-16 | XMS | Encounter Summary ---
Demographics + + + | Address | [address] | | | [place] [address] | + + + | Home Phone | | + + + | Preferred Language | Unknown | + + + | Marital Status | Single | + + + | Mormonism Affiliation | Unknown | + + + | Race | White | + + + | Ethnic Group | Unknown | + + + Author + + + | Author | [facility] | | | and [place] | + + + | Organization | [facility] | | | [...] Team Providers + +------+ + | Care Application Design Engineer Name | Role | Phone [...] Lab Results | | 2019 | | [address] | Ciaio Counter Molder | | | | | [place], [place] | | | | | | [address] | | | | | | [phone] | | | +--------+ + + + [...] Miscellaneous Notes Telephone Encounter - Armida Cummins Ciaio Counter Molder - 08/01/2019 10:40 AM PDTTried ca lling [...]
--- OUTSIDE RECORDS SUMMARY | ~2019-12-16 | XMS | Encounter Summary ---
Demographics + + + | Address | [address] | | | [place] [address] | + + + | Home Phone [...] Team Providers + +------+ + | Care Associate Professor Of Media Arts Name | Role | Phone | + +------+ + | Gonzales Rivera NP | PCP | | + +------+ + Reason for Visit + + + | Reason | Comments | + + + | Pre-op Exam | Gama VALLE [facility] on 05/17/2019 | + + + Evaluate [...] | | Other | [address] | [place], [place] | | | | | chronic pain | AVE | [address] | | | | | | [place] | Phone: | | | | | | [place] [address] | [phone] | | | | | | Phone: | Fax: | | | | | | [phone] | [phone] | | | | | | Fax: | | | | | | | [phone] | | + +--------+ + + + + Encounter Details +--------+---------+ + + + | Date | Type | Department | Care Team | Description | +--------+---------+ + + + | 04/26/ | Office | [facility] | Rebecca Davis, | Primary | | 2020 | Visit | [place] [address] | osteoarthritis of | | | | BLVD [place], [place] | [place], [place] | left hip (Primary | | | | [address] | [address] | Dx) | | | | [phone] | | | +--------+---------+ + + + [...] IN THE EVENING AND 2 TS AT [facility] HT NEEDED FOR MUSCLE SPASM/PAIN, Disp: , Rfl: 5 benzonatate (TESSALON) 100 mg capsule, Take 1 capsule by mouth 3 times daily as needed for Cough. (Patient not taking: Reported on 03/16/2019), Disp: 30 capsule, Rfl: 0 Kgprtmb-Gcyjpqdbs-Cmgbmfs D 185-50-100 MG-MG-UNIT CAPS, Calcium Magnesium + [...] The left hip has severe e nd-stage rrsg-vn-gaof osteoarthritis with subchondral sclerosis and cysts on [...] on 03/16/2019), Disp: 30 capsule, Rfl: 0 Wbwnqqn-Wovqplhyf-Ossmztt D 185-50-100 MG-MG-UNIT CAPS, Calcium Magnesium + [...] The left hip has severe e nd-stage iefe-ou-wlfe osteoarthritis with subchondral sclerosis and cysts on [...] - 04/27/2019 9:00 AM PST Addended by: REEBCCA DAVIS on: 04/27/2019 12:05 PM Modules accepted: Orders documented in this encounter Plan of Treatment Not on filedocumented as of this encounter Visit Diagnoses + + | Diagnosis | + + | Primary osteoarthritis of left hip - Primary Primary localized osteoarthrosis, pelvic | | region and thigh | + + documented in this encounter
--- OUTSIDE RECORDS SUMMARY | ~2019-12-16 | XMS | Encounter Summary ---
Demographics + + + | Address | [address] | | | [place] [address] | + + + | Home Phone [...] Team Providers + +------+ + | Care Media Consultant Name | Role | Phone | [...] | | | Surgery | Bilateral | Gonazles Mccray, | Eddy Malloy MD | | | | | primary | REAL ESTATE PHOTOGRAPHER [address] | [address] | | | | | osteoarthrit | [facility] [address] | | | | | is of knee | ROXI SRINIVASAN, | [address] | | | | | Bilateral | [address] | [address] Phone: | | | | | osteoarthrit | [place], | [phone] | | | | | is resulting | [place] [address] | Fax: | | | | | from hip | Phone: | [phone] | | | | | dysplasia | [phone] | | | | | | | Fax: | | | | | | | [phone] | | +--------+--------+ + + + + Encounter Details +--------+---------+ + + + | Date | Type | Department | Care Team | Description | +--------+---------+ + + + | 01/06/ | Office | [facility] | Rigo Muniz | Left knee pain, | | 2017 | Visit | ORTHOPEDIC SURGERY | [address] | unspecified | | | | [address] [place] | Anand Flores | chronicity (Primary | | | | [place], [place] | [place] [address] | Dx); Left hip pain; | | | | [address] | [phone] | Primary | | | | [phone] | | osteoarthritis of | | | [...] + + + documented in this encounter H&P Notes Rigo Muniz PA-C - 01/06/2018 3:00 PM PSTFormatting of this note might be differe nt from the original. ORTHOPEDICS [address] [place] [address] FAX: [phone] Name: Laury Crockett : 1960 Age: 57 y.o. Todays Date: 01/07/2018 Primary Care Provider: Gonzales Rivera NP Chief Complaint Patient presents with Hip Pain bilateral hip pain History of Present Illness: Laury Crockett is a new patient that presents with chronic bilateral hip pain and bilate ral knee pain. Describes that she has had the left hip pain for about 2 months in the right hip pain for about one year. Describes the pain as occurring at the anterior and posterior lateral aspects of the left hip. Prescription the pain does go down into her thigh. Pain is increased with sleeping on either side, weightbearing and mobilizing. Should also be see n for her bilateral knee pain. Describes that the left knee pain is worse than the right. Describes that the knee still unstable. Describes it as catching and locking sensation. It is difficult for her to mobilize. She does use Tylenol and baclofen for pain control when necessary. She has had a right total hip arthroplasty performed with she was in [place] over 4 years ago. No recent injuries or falls. Current level pain rated at 7 Past Medical History: Diagnosis Date Ankylosing spondylitis (HCC) Arthritis Carpal tunnel syndrome Fractures Osteoarthritis Osteoporosis Scoliosis Spondylolisthesis No past surgical history on file. Allergies Allergen Reactions Celecoxib Shortness Of Breath and Swelling Rizatriptan Anaphylaxis "Swelling of throat & asthma attack" Solifenacin Anaphylaxis Tramadol Hives and Rash Duloxetine Other (See Comments) Suicidal thoughts Current Outpatient Prescriptions Medication Sig Dispense Refill albuterol 2.5 mg/3 mL nebulizer solution Inhale 2.5 mg into the lungs. albuterol-ipratropium 2.5-0.5 mg/3 mL SOLN Inhale 3 mLs into the lungs. atorvaSTATin (LIPITOR) 40 mg tablet Take 40 mg by mouth. atorvaSTATin (LIPITOR) 80 MG tablet TK 1 T PO QD 3 baclofen (LIORESAL) 10 mg tablet TK 1 T PO QAM AND 1 T IN THE EVENING AND 2 TS AT NIGHT NEEDED FOR MUSCLE SPASM/PAIN 5 diclofenac (VOLTAREN) 1% GEL APPLY 2 GRAM TOPICALLY AA BID 3 dicyclomine (BENTYL) 20 MG tablet TAKE 1 TABLET BY MOUTH EVERY 6 HOURS NEEDED FOR AB DOMINAL CRAMPING erythromycin ophthalmic ointment Apply to L eye every 4 hours for 7 days fluticasone (FLONASE) 50 mcg/nasal spray INSTILL 1 TO 2 SPRAYS IEN BID 0 glipiZIDE (GLUCOTROL) 5 mg tablet TK 1 T PO BID 3 ibuprofen (ADVIL,MOTRIN) 800 MG tablet TK 1 T PO Q 6 H PRN P 5 levothyroxine (SYNTHROID) 75 MCG tablet TAKE 1 TABLET BY MOUTH EVERY DAY metFORMIN (GLUCOPHAGE-XR) 500 mg 24 hr tablet TAKE 1 TABLET BY MOUTH TWICE DAILY metoprolol succinate (TOPROL-XL) 25 mg 24 hr tablet TK 1 T PO BID 11 mometasone (NASONEX) 50 mcg/nasal spray 2 sprays by Nasal route. Multiple Vitamin (MULTIVITAMIN) capsule Take 1 capsule by mouth. nitroglycerin (NITROSTAT) 0.[address] 0.4 mg under the tongue. omeprazole (PRILOSEC) 20 mg capsule TK 1 C PO D 3 ondansetron (ZOFRAN ODT) 4 mg disintegrating tablet DIS ONE T PO Q 8 HOURS NEEDED 0 PREMARIN 0.625 MG/GM vaginal cream INSERT 1 GRAM VAGINALLY AT NIGHT TWICE A WEEK 3 promethazine (PHENERGAN) 25 mg tablet TAKE 1 TABLET BY MOUTH EVERY 6 HOURS NEEDED FO R NAUSEA sertraline (ZOLOFT) 100 mg tablet TAKE 2 TABLETS BY MOUTH AT BEDTIME tiotropium (SPIRIVA RESPIMAT) 1.25 mcg/puff inhaler Spiriva Respimat once qday VENTOLIN HFA 108 (90 Base) MCG/ACT inhaler INL 2 PFS PO Q 4 H PRF WHZ OR SOB 11 No current facility-administered medications for this visit. No family history on file. Social History Substance Use Topics Smoking status: Current Every Day Smoker Smokeless tobacco: Never Used Alcohol use Not on file Review of Systems: Constitutional: Negative for fever, malaise, fatigue or weight loss. HENT: Negative for vision loss/changes. Positive for glasses and or contacts, sinus diseas e, dentition problems and nasal allergies Respiratory: Negative for Shortness of breath or labored respirations Cardiovascular: Negative for chest pain, palpitations and leg swelling. Gastrointestinal: Positive for abdominal pain, nausea and hemorrhoids Musculoskeletal: Positive for physical handicaps, back and shoulder pain, rheumatoid diseas e, osteophytes, joint pain and joint swelling. Genitourinary: Positive for urinary leakage and nocturia Skin: Negative for rashs and wounds. Neurological: Positive for numbness, shooting pains. Patient is right-handed Psych: Positive for depression Imaging/Studies: Reviewed imaging studies today in our office Xr Knee Left 1 - 2 Vw Result Date: 01/06/2018 FOUR VIEWS BILATERAL KNEES 01/06/2018 2:29 PM CLINICAL HISTORY: bilateral knee pain COMPARI SON: None available FINDINGS: The bones are well-mineralized and well aligned. No fracture or subluxation is evident. There is moderate narrowing of the left medial femorotibial comp artment, with only minimal narrowing of the right medial compartment. The lateral compartme nt and patellofemoral joints are maintained although there is early marginal osteophyte invo lving the left patellofemoral joint. A small right knee effusion is suggested, while only t race left knee fluid is apparent. Soft tissues are otherwise unremarkable. IMPRESSION - 1. MODERATE, ASYMMETRIC DEGENERATION OF THE LEFT MEDIAL FEMOROTIBIAL JOINT COMPARTMENT WITH S MALL, RIGHT GREATER THAN LEFT KNEE EFFUSIONS. Dictated and Signed by: Kristopher Rondon MD Elect ronically signed: 01/06/2018 3:31 PM Xr Knee Right 4 + Vw Result Date: 01/06/2018 FOUR VIEWS BILATERAL KNEES 01/06/2018 2:29 PM CLINICAL HISTORY: bilateral knee pain COMPARI SON: None available FINDINGS: The bones are well-mineralized and well aligned. No fracture or subluxation is evident. There is moderate narrowing of the left medial femorotibial comp artment, with only minimal narrowing of the right medial compartment. The lateral compartme nt and patellofemoral joints are maintained although there is early marginal osteophyte invo lving the left patellofemoral joint. A small right knee effusion is suggested, while only t race left knee fluid is apparent. Soft tissues are otherwise unremarkable. IMPRESSION - 1. MODERATE, ASYMMETRIC DEGENERATION OF THE LEFT MEDIAL FEMOROTIBIAL JOINT COMPARTMENT WITH S MALL, RIGHT GREATER THAN LEFT KNEE EFFUSIONS. Dictated and Signed by: Kristopher Rondon MD Elect ronically signed: 01/06/2018 3:31 PM Xr Hip Bilateral 3-4 Views Result Date: 01/06/2018 THREE VIEWS PELVIS AND HIPS 01/06/2018 2:29 PM CLINICAL HISTORY: bilateral hip pain COMPARI SON: None available FINDINGS: Right total hip arthroplasty hardware is present and appears w ell seated. The bones are well-mineralized and well aligned, without evident fracture or damian bluxation. The left hip joint and pubic symphysis are maintained. There is some spurring a long the inferior margins of the SI joints. A surgical clip projects in the right lower abd omen. Right gluteal calcification may relate to previous trauma or inflammation. Soft tiss ues are otherwise unremarkable. IMPRESSION - 1. SATISFACTORY APPEARANCE OF RIGHT TOTAL HIP ARTHROPLASTY HARDWARE AND MILD DEGENERATIVE CHANGES OF THE SI JOINTS , WITHOUT OTHER SIGNIF ICANT ABNORMALITY. Dictated and Signed by: Kristopher Rondon MD Electronically signed: 8 3:25 PM Physical Exam: Vitals: 01/06/18 1457 Weight: 83.9 kg (185 lb) Height: 1.575 m (5' 2") Constitutional: Pleasant and cooperative with exam. In no acute distress. Appears their stated age. Head: Normal cephalic and atraumatic. Eyes: EOM intact ENT: Adequate hearing noted bilaterally Cardiovacular: No lower extremity edema noted. Pulmonary: Non-labored respirations. Pt does not appear short of breath. Musculoskeletal: Patient presents today in a wheelchair. I question patient who prescribed her wheelchair; she describes that it was so prescribed and she attended upon her own accor d. She is able to stand up quite readily without assistance. She is full weightbearing and relates with a subtle abnormal gait but no obvious antalgic or Trendelenburg-like gait. Ex amination of her right and left hip reveals no inability with internal and external range of motion. No catching or locking sensation is easily appreciate. She does describe some baylee n laterally at each hip. Prominent pain on palpating over the the bilateral greater trochan teric bursa; worse at the left. Mother tender when palpating distally along the IT band lat erally. Examination of bilateral knees reveals good preservation of range of motion approxi mately 0 125 degrees. There is no clear suggestion of ligamentous instability; negative A P drawer test, valgus varus stressing. This does not cause her any significant discomfort. She does process pain and popping over both the medial and lateral mid joint lines. Rather clinical Demi's test. She does have very prominent crepitation and bilateral patellofe moral compartments worse in the left obvious catching and grinding sensation. Painful bilat eral patella grind test. Neurologic: No obvious neurological abnormalities observed with patient. Skin: Warm and dry. No erythema or swelling noted at bilateral knees Psych: Pt is alert, oriented. Answers questions promptly when asked Assessment/Plan: 1. Primary osteoarthrosis bilateral knees 2. Chronic bilateral knee pain 3. Bilateral greater trochanteric bursitis A. we will plan from imaging studies today With examination findings. Review of the pelvi c view and hips reveals no clear assistant broker of acute pathology, significant arthritis of the left hip joint or complications at the right hip arthroplasty. This examination reveals pat hology motions with that of soft tissue consisting at the level of the bilateral greater tro chanters. Discussed treatment options and she wishes to receive injection therapy today at the left greater trochanter which I agree as more than appropriate. Reviewed pathology deejay perez. She does have more significant arthrosis at bilateral patellofemoral compartments; the l eft being worse. She does have nomk-lv-dbxn apposition with prominent osteophyte formation is compartment the left knee. Discussed treatment options consisting of continued observati on, pain medication, physical therapy, injection therapy, knee braces and supplementation. She wishes to receive adjacent hip today at the left knee which I agree as appropriate. It is likely that she will require some degree of surgical intervention at the left knee in the future when she is medically stable. Written consent was obtained for left hip and left kn ee injection. Patient was placed in right lateral decubitus position. Area of muscle tenderness was identified and marked. Skin prep Betadine and alcohol. This area was anesthetized with a 2:1 ratio of lidocaine to ropivacaine for a total of 6 MLS. 9 mg of betamethasone with 2 ML's of lidocaine into ML's were. We then placed but to 3 mm of f the left greater trochanter. I then had her sit upright with her feet hanging off of the exam table for knee injection. Patient was placed in a seated position. Knee joint injection was performed in a sterile m tiara, using the inferior lateral approach. The knee was anesthetized with a 2:1 ratio of l idocaine to ropivacaine for a total of 6ml . 9mg of betamethasone with 2ml of lidocaine and 2ml of ropivacaine was then placed in the knee joint. A band-aid was placed over the injec tion site. The procedure was tolerated well, without complaint or incident. It was recomme nded that they refrain from bathing tonight. Bandaid can be removed tomorrow and resume nor mal bathing. Follow up will be on an as needed basis. I would like her to follow-up in [facility] 4 weeks for reexamination. Likely will receive a consideration for right hip and right k nee injection at that time if appropriate. B. Patient is advised that if they have any questions, comments or concerns to contact our office. I spent over 45 minutes face to face with the patient, with over 50% spent in counseling an d/or coordination of care regarding chronic bilateral hip and knee pain, reviewing imaging s tudies and pathology discussion and development of a treatment plan with left hip and left k nee injection therapy.. Rigo Muniz PA-C 01/07/2018 8:05 This history and physical was dictated using the MyCube voice recognition system. There may be minor errors in grammar. documented in t his encounter Plan of [...] | | | | | Other, ONCE, 01/06/18 at | | PM PST | | [...] | | t | | Other, ONCE, 01/06/18 at | | PM PST | | | | | 1600, For 1 dose, Shake well. Not | | | | | | | for IV use., | | | | | | + +-------+ +------+---+ + +---+---+ | | | +---+---+ documented in this encounter
--- OUTSIDE RECORDS SUMMARY | ~2019-12-16 | XMS | Encounter Summary ---
Demographics + + + | Address | [address] | | | [place] [address] | + + + | Home Phone [...] [address] | | | | | [address] | | | | | [address] | | + + + + + Care Team Providers + +------+ + | Care Culinary Art Teacher Name | Role | Phone | [...] | | | | | K[place], | | | | | | [place] [address] | | | +--------+ + + + [...] | 0 | 06/04/19 | | | [id number] | needed. | | | 16 | [...]
--- OUTSIDE RECORDS SUMMARY | ~2019-12-16 | XMS | Encounter Summary ---
Demographics + + + | Address | [address] | | | [place] [address] | + + + | Home Phone [...] [address] | | | | | [place] | | | | | [address] | | + + + + + Care Team Providers + +------+ + | Care Auto Appraiser Name | Role | Phone | + +------+ + | No Pcp Per Patient | PCP | Unavailable | + +------+ + Encounter Details +--------+ + + + + | Date | Type | Department | Care Team | Description | +--------+ + + + + | 09/01/ | Abstract | [facility] | Mahendra Cash, | | | 2013 | | [address] | MD [facility] | | | | | [address] | [place] [address] | | | | | [place] | [address] | | | | | [address] | [address] [place] | | | | | [phone] | [address] | | | | | | | [...]
--- OUTSIDE RECORDS SUMMARY | ~2019-12-16 | XMS | Encounter Summary ---
Demographics + + + | Address | [address] | | | [place] [address] | + + + | Home Phone | | + + + | Preferred Language | Unknown | + + + | Marital Status | Single | + + + | Quaker Affiliation | Unknown | + + + | Race | White | + + + | Ethnic Group | Unknown | + + + Author + + + | Author | [facility] | | | and [place] | + + + | Organization | [facility] | | | [...] Team Providers + +------+ + | Care Windows Phone Developer Name | Role | Phone | [...] Lab Results | | 2019 | | [address] | Therapist Occupational | | | | | [place], [place] | | | | | | [address] | | | | | | [phone] | | | +--------+ + + + [...] Miscellaneous Notes Telephone Encounter - Armida Cummins Therapist Occupational - 07/27/2019 1:48 PM PDTTried to call [...]
--- OUTSIDE RECORDS SUMMARY | ~2019-12-16 | XMS | Encounter Summary ---
Demographics + + + | Address | [address] | | | [place] [address] | + + + | Home Phone [...] [address] | | | | | [address], [place] | | | | | [address] | | + + + + + Care Team Providers + +------+ + | Care Recreation Aide Name | Role | Phone | [...] | | + +---------+ + + | [facility] DEPARTMENT OF | | | | | RADIOLOGY | | | | + +---------+ + + documented in this encounter Visit Diagnoses Not on filedocumented in this encounter"
--- OUTSIDE RECORDS SUMMARY | ~2019-12-16 | XMS | Encounter Summary ---
Demographics + + + | Address | [address] | | | [place] [address] | + + + | Home Phone [...] Author + + + | Author | [facility] | + + + | Organization | [facility] | + + + | Address | Unknown | + + + | Phone | Unavailable | + + + Support + + + + + | Name | Relationship | Address | Phone | + + + + + | Lolis Rodriguez | [place]TY | [address] | | | | | [place] | | | | | [address] | | + + + + + Care Team Providers + +------+ + | Care Neon Tube Bender Name | Role | Phone | [...] [place] | | | | | | [address] | | | +--------+ + + + [...]
--- OUTSIDE RECORDS SUMMARY | ~2019-12-16 | XMS | Encounter Summary ---
Demographics + + + | Address | [address] | | | [place] [address] | + + + | Home Phone [...] [address] | | | | | [address] | | | | | [address] | | + + + + + Care Team Providers + +------+ + | Care Lead Software Engineer Name | Role | Phone | [...] as of this encounter Progress Notes Interface, Private Pilot In - 09/20/2005 1:11 AM PDTCLINIC DATE: 02/08/2002 [facility] This is a conference/coordination of care visit consisting of 30 minutes of cznm-dy-yclg time with the patient. CHIEF COMPLAINT: "I am having hard time staying awake." HISTORY OF PRESENT ILLNESS: The patient relates a history of chronic fatigue, decreased memory, and right upper quadrant pain. Her right upper quadrant pain has been evaluated in the past by Gastroenterology here at [facility]. Additionally, more recently, she has developed a leg injury that has resulted in low back pain and right leg pain. She is currently being treated by Dr. Roberts in [place] who has scheduled her for an [...] and tobacco use since 1976. CURRENT MEDICATIONS: [place] 300 mg 5 times a day, Paxil [...] records from Dr. Dougie Gaviria of [place] to be transferred here to [facility]. The patient will return to the clinic at the next available appointment for a complete physical examination. James Boss M.D., M.[facility] / [id number] / [id number] / [id number] / Tdocumented in this encounter Plan of Treatment Not on filedocumented as of this encounter Visit Diagnoses Not on filedocumented in this encounter
--- OUTSIDE RECORDS SUMMARY | ~2019-12-16 | XMS | Encounter Summary ---
Demographics + + + | Address | [address] | | | [place] [address] | + + + | Home Phone [...] + + + | Author | [facility] | | | and [place] | + + + | Organization | [facility] | | | [...] Team Providers + +------+ + | Care Lumber Cutter Name | Role | Phone | [...] + + | 05/08/ | Telephone | [facility] | Dean Munroe, | Surgery Appointment | | 2019 | | [address] | [address] | | | | | [place], [place] | [place], [place] | | | | | [address] | [address] | | | | | [phone] | | | +--------+ + + + [...]
--- OUTSIDE RECORDS SUMMARY | ~2019-12-16 | XMS | Encounter Summary ---
Demographics + + + | Address | [address] | | | [place] [address] | + + + | Home Phone [...] Providers + +------+ + | Care Metal Casting Trades Worker Name | Role | Phone | + +------+ + | Mahendra Merchant | PCP | | + +------+ + Reason for Visit + +--------+ + | Reason | Onset | Comments | | | Date | | + +--------+ + | Scheduling Issues | 07/21/ | | | | 2020 | | + +--------+ + Encounter Details +--------+ + + + + | Date | Type | Department | Care Team | Description | +--------+ + + + + | 07/21/ | Telephone | [facility] | Armida Cummins, | Scheduling Issues | | 2019 | | [place] [facility] [address] | Business Intelligence Director | | | | | [place] | | | | | | [address] | | | | | | [phone] | | | +--------+ + + + [...] Miscellaneous Notes Telephone Encounter - Armida Cummins Business Intelligence Director - 07/22/2019 4:13 PM PDTCalled p atient per dr. Munroe to reschedule patient for pre op appt for left hip. Patient was ok t o get scheduled for 07/26/2019. documented in this encounter Plan of Treatment Not on filedocumented as of this encounter Visit Diagnoses Not on filedocumented in this encounter"
--- OUTSIDE RECORDS SUMMARY | ~2019-12-16 | XMS | Clinical Summary ---
Demographics + + + | Address | [address] | | | [place] [address] | + + + | Home Phone [...] [place] | | | | | [address] | | + + + + + Care Team Providers + +------+ + | Care Clay Structure Builder And Servicer Name | Role | Phone | + +------+ + | James Horne MD | PCP | | + +------+ + Source Comments SHARON is fully live on both [facility] Allergies + + + + + [...] | 04/1 | | Activ | | [id number] | needed. | | | 1/20 | [...] + +--------+ | MEDICARE | MEDICA | [id number] | 10/25/19 | [phone] | [address] | [employer] | | | RE A & | | 01-Pre | 1 | 2 | re | | | B | | sent | | [place] | | | | | | | | [address] | | + +--------+ +--------+ + +--------+ + +--------+ +--------+ + + | Guarantor Name | Accoun | Relation to | Date | Phone | Billing Address | | | t Type | Patient | of | | | | | | | | | | + +--------+ +--------+ + + | Laury Crockett | Person | Self [birth year] | [address] | | | al/Fam | | 1961 | [phone] | [place] | | | de | | | [address] (Home) | [address] | + +--------+ +--------+ + +
--- OUTSIDE RECORDS SUMMARY | ~2019-12-16 | XMS | Encounter Summary ---
Demographics + + + | Address | [address] | | | [place] [address] | + + + | Home Phone [...] Team Providers + +------+ + | Care Amusement Machine Mechanic Name | Role | Phone | [...] | Other | | 2020 | | [facility] [address] | | | | | [address] [place] | | | | | | [address] | | | | | | [phone] | | | +--------+ + + + [...] Please review. Thanks. Preferred pharmacy: [facility] in [place] documented in this en counter Plan of Treatment Not on filedocumented as of this encounter Visit Diagnoses Not on filedocumented in this encounter"
--- OUTSIDE RECORDS SUMMARY | ~2019-12-16 | XMS | Encounter Summary ---
Demographics + + + | Address | [address] | | | [place] [address] | + + + | Home Phone [...] Team Providers + +------+ + | Care Strategic Sourcing Manager Name | Role | Phone | [...] | | [address] [place] | [place] [address] | | | | | [place] [address] | | | | | | [phone] | | | +--------+ + + + [...]
--- OUTSIDE RECORDS SUMMARY | ~2019-12-16 | XMS | Encounter Summary ---
Demographics + + + | Address | [address] | | | [place] [address] | + + + | Home Phone [...] + + + | Author | [facility]ly [facility] | | | and [place] | + + + | Organization | [facility] | | | [...] Team Providers + +------+ + | Care Player Services Representative Name | Role | Phone [...] + + | 04/07/ | Telephone | [facility] | Armida Cummins, | Service Request | | 2019 | | [facility] | Insurance Claim Representative | | | | | [place] | | | | | | [address] | | | | | | [phone] | | | +--------+ + + + [...] Miscellaneous Notes Telephone Encounter - Armida Cummins Insurance Claim Representative - 04/07/2019 4:23 PM PSTLet yosef ent know that I will fax over her RX request for Trapeze Bar, patient stated she wanted me t o fax it to [place] [facility] . Also, gave me the phone number . documented in this encounter Plan of Treatment Not on filedocumented as of this encounter Visit Diagnoses Not on filedocumented in this encounter"
--- OUTSIDE RECORDS SUMMARY | ~2019-12-16 | XMS | Encounter Summary ---
Demographics + + + | Address | [address] | | | [place] [address] | + + + | Home Phone | | + + + | Preferred Language | Unknown | + + + | Marital Status | Single | + + + | Islam Affiliation | Unknown | + + + | Race | White | + + + | Ethnic Group | Unknown | + + + Author + + + | Author | [facility] | | | and [place] | + + + | Organization | [facility] | | | and [...] Team Providers + +------+ + | Care Rn Lvn Name | Role | Phone | + [...] | | | JOHN RODRIGUEZ | [place] [address] | | | | | [address] | [phone] | | | | | [phone] | | | +--------+ + + + [...]
--- OUTSIDE RECORDS SUMMARY | ~2019-12-16 | XMS | Encounter Summary ---
Demographics + + + | Address | [address] | | | [place] [address] | + + + | Home Phone [...] [address] | | | | | [address] | | | | | [address] | | + + + + + Care Team Providers + +------+ + | Care Substation Operator Apprentice Name | Role | Phone | + [...] + + | 08/19/ | Refill | [facility] | Clair Kay MD | Refill Request | | 2017 | | [facility] | [address] [facility] | | | | | [address] | [facility] [address] | | | | | [address] | [place], [place] | | | | | [address], [address] floor | [address] | | | | | [place], [place] | [phone] | | | | | [address] | | | | | | [phone] | | | +--------+--------+ + + + [...] this encounter Miscellaneous Notes Telephone Encounter - Maria Isabel Rodriguez MA - 08/19/2016 4:36 PM PDT Refill request received from [facility]'s pharmacy for: Requested Prescriptions Pending Prescriptions Disp Refills GABAPENTIN 100 mg oral capsule [Pharmacy Med Name: GABAPENTIN 100MG CAPSULES] 270 capsu le 3 Sig: TAKE ONE CAPSULE BY MOUTH THREE TIMES DAILY Last refill: Originally written 08/18/16, would like 90-day supply with 3 refills Last visit: 08/18/16 Next visit: No future visit scheduled Last mammogram: Pharmacy verified and order pended. Routing to Dr. Kay and Dr. Paez for review/autho rization. documented in this en counter Plan of Treatment Not on filedocumented as of this encounter Visit Diagnoses Not on filedocumented in this encounter"
--- OUTSIDE RECORDS SUMMARY | ~2019-12-16 | XMS | Encounter Summary ---
Demographics + + + | Address | [address] | | | [place] [address] | + + + | Home Phone [...] Author + + + | Author | [facility] | + + + | Organization | [facility] | + + + | Address | Unknown | + + + | Phone | Unavailable | + + + Support + + + + + | Name | Relationship | Address | Phone | + + + + + | Lolis Rodriguez | [address] | | | | | [place] | | | | | [address] | | + + + + + Care Team Providers + +------+ + | Care Souvenir Assembler Name | Role | Phone | [...] | | | al | MEDICAL | [address] | | | | | status(V45.8 | GROUP | [place], | | | | | 9) | [place] | [place], [place] | | | | | Procedures | [address] | [address] | | | | | [place] | [address] | Phone: | | | | | LABS | [address] | [phone] | | | | | | [place], [place] | Fax: | | | | | | [address] | [phone] | | | | | | Phone: | | | | | | | [phone] | | | | | | | Fax: | | | | | | | [phone] | | +--------+--------+ + + + + Encounter Details +--------+ + + + + | Date | Type | Department | Care Team | Description | +--------+ + + + + | 10/10/ | [facility] | Sree Abdul Nurse | [facility] | | 2014 | l Support | [facility] [place] | [address] [place] | | | | Staff | [address] [address], | [address] [place], [place] | | | | | [place], [place] | [address] | | | | | [address] | [phone] | | | | | [phone] | | | | | | | Sree Jain Ma | | | | | | Schedule [place], | | | | | | [place] [address] | | +--------+ + + + + [...]
[~2019-12-16 13:40] MED LIST changes: +FENOFIBRATE145 MG PO; +GABAPENTIN600 MG PO; +HYDROCODON-ACE1 EA10 PO; +IMITREX50 MG PO; +IRON325 M1 PO; +JARDIANCE10 MG PO; +LAMICTAL150 MG PO; +LAMOTRIGINE150 MG PO; -LIPITOR40 MG PO; +LIPITOR80 MG PO; +NITROSTAT0.6 MG SL; +OMEPRAZOLE20 MG PO; +ONDANSETRON ODT4 MG PO; +OXYCODONE HCL5 MG PO; -OZEMPIC1 MG/0.75; +OZEMPIC1 MG/0.75 SUB-Q; +POLYTRIM EYE DR10 ML OD; +PRAZOSIN HCL5 MG PO; +PREMARIN0.625 MG PO; +PREMARIN30 GM PV; +PROMETHAZINE HC25 M1 PO; +SYNTHROID100 MCG PO; -SYNTHROID75 MCG PO; +VITAMIN C500 M1 PO; +VOLTAREN ARTHRI20 GM TOP; +XARELTO10 MG PO; +ZADITOR5 ML OPTH
--- OUTSIDE RECORDS SUMMARY | 2019-12-16 13:42 | XMS ---
PreManage Notification: [facility] [place] Security Rail Gang Supervisor Events No recent Security Events currently on file CRITERIA MET - Group Notification - [facility] CARE PROVIDERS ROXY MAS Internal Medicine Current PHONE: [phone] GONZALES CLAYTON Nurse Practitioner: 09/07/2017-Current PHONE: [phone] ROXY REESE [facility] 05/25/2019-Current PHONE: [phone] [facility] Date: 07/12/2018 Care Coordination: Receiving mental health services with [employer] [employer].\T\nbsp; Please contact [facility] with mental health concerns.\T\nbsp; [facility]: [phone]\T\ nbsp; Alexandru: [phone]. Care History Medical/Surgical 05/25/2019 [facility] - PATIENT HAS A REFERRAL TO A DIRECTOR SALES SUPPORT IN [place], [place]- DR BRAYAN BOLANOS- [phone]. 03/16/2019 [facility] Left voicemail to have patient schedule follow up visit with Gonzales Clayton 09/27/2018 [facility] - DUE TO PATIENT RECENT FALL- [facility] CONTACTED PCP OFFICE REQUESTED AN ED FOLLOW UP VISIT ON 09/27/18. Social 03/18/2016 [facility] ENCOURAGE PATIENT TO USE PCP OR WALK-IN CLINIC FOR NON-EMERGENT PROBLEMS. SHE CAN CALL RESEARCH WORKER K[employer] FOR HELP OR QUESTIONS. [phone]. E.D. VISIT COUNT (12 MO.) [address] TOTAL 6 NOTE: Visits indicate total known visits. ED/UCC VISIT TRACKING (12 MO.) 12/16/2019 13:40 [facility] [place] TYPE: Emergency COMPLAINT: - POST OP PROBLEM 10/30/2019 23:32 [facility] [place] TYPE: Emergency COMPLAINT: - FALL DIAGNOSES: - Pain in right wrist - Strain of muscle, fascia and tendon of left hip, initial enco - Unspecified sprain of right wrist, initial encounter - Allergy status to other drugs, medicaments and biological sub - Nicotine dependence, unspecified, uncomplicated - Allergy status to analgesic agent status - Fall on same level, unspecified, initial encounter - Gastro-esophageal reflux disease without esophagitis - Hypothyroidism, unspecified - Type 2 diabetes mellitus with diabetic polyneuropathy 07/31/2019 15:05 [facility] [place] TYPE: Emergency COMPLAINT: - LOW BLOOD SUGAR DIAGNOSES: - Allergy status to other drugs, medicaments and biological sub - Nicotine dependence, unspecified, uncomplicated - Chest pain, unspecified - Other custodial (current) 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 - Type 2 diabetes mellitus with hypoglycemia without coma - Allergy status to analgesic agent status - Hypothyroidism, unspecified - Chronic obstructive pulmonary disease, unspecified - Gastro-esophageal reflux disease without esophagitis 05/24/2019 16:01 [facility] TYPE: Emergency COMPLAINT: - R SIDE RIB INJURY DIAGNOSES: - Fall on same level, unspecified, initial encounter - Hypothyroidism, unspecified - Gastro-esophageal reflux disease without esophagitis - Pleurodynia - Personal history of nicotine dependence - Multiple fractures of ribs, right side, initial encounter for - Other ocean transportation intermediary (current) 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 - Type 2 diabetes mellitus without complications - Chronic obstructive pulmonary disease, unspecified 03/15/2019 23:52 [facility] TYPE: Emergency COMPLAINT: - STROKE SYMPTOMS DIAGNOSES: [...] migrainos - Unspecified asthma, uncomplicated - Other custodial (current) 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 [facility] DIAGNOSES: - Pain in left hip - Pelvic Pain - Hip Pain - Other chronic pain - Unilateral primary osteoarthritis, left hip - Simple chronic bronchitis INPATIENT VISIT TRACKING (12 MO.) 11/28/2019 05:35 [facility] [place] TYPE: Orthopedic COMPLAINT: - LEFT TOTAL HIP REPLACEMENT (SHERMAN) DIAGNOSES: - Unilateral primary osteoarthritis, left hip [email or web address]
--- NOTE | 2019-12-18 00:36 | PATH ---
[facility] [address] [place], [place] [address] Signed ORDERING PHYSICIAN: Shai Mendenhall MD PATIENT NAME: GROVER WYNN GENDER: F : 1960 Prior History: DATE CASE NUM ADEQUACY DIAGNOSIS HPV RESULTS PHYSICIAN The 5 most recent reports are included. This history does not include results of pap smears performed at another laboratory. SPECIMEN(S): No Source Given MOLECULAR PATHOLOGY RESULTS: SARS-CoV-2 Not Detected ADDITIONAL NOTES.: The [place] Fusion SARS-CoV-2 Assay is a multiplex real-time PCR (RT-PCR) in vitro diagnostic test intended for the qualitative detection of RNA from SARS-CoV-2 from individuals who meet COVID-19 clinical and/or epidemiological criteria. In general, SARS-CoV-2 RNA can be detected during the acute phase of infection. Positive results indicate the presence of SARS-CoV-2 RNA. Clinical correlation with patient history and other diagnostic information is necessary to determine patient infection status. Positive results do not rule out bacterial infection or co-infection with other viruses. Negative results do not preclude SARS-CoV-2 infection and should not be used as the sole basis for patient management decisions. Negative results must be combined with other clinical observations, patient history, and epidemiological information. The [place] Fusion SARS-CoV-2 Assay is not yet approved or cleared by the [place] FDA. When there are no FDA-approved or cleared tests available, and other criteria are met, FDA can make tests available under an emergency access mechanism called an Emergency Use Authorization (EUA). The EUA for this test is supported by the Emt/Dispatcher of Health and Human Service's (HHS's) declaration that circumstances exist to justify the emergency use of in vitro diagnostics for the detection and/or diagnosis of the virus that causes COVID-19. This EUA will remain in effect for the duration of the COVID-19 declaration justifying emergency of IVDs, unless it is terminated or PATIENT NAME: GROVER WYNN PATHOLOGY DATE OF : 60 REPORT #: [id number] PHYSICIAN: LIAM MONTES DE OCA PCP: ROXY REESE MD REPORT IS CONFIDENTIAL AND NOT TO BE RELEASED WITHOUT AUTHORIZATION [facility] [address] [place], [place] [address] Signed revoked by FDA, after which the test may no longer be used. The [place] Fusion SARS-CoV-2 Assay is for use only under EUA in US laboratories certified under the Clinical Laboratory Improvement Amendments of 1988 (CLIA) to perform high complexity tests. [facility] is certified under CLIA to perform high complexity clinical laboratory testing. PERFORMING LABORATORY.: Molecular testing was performed by [facility] [place] [address] (Conservation Technician: Jere Luo D.O.; CLIA#: [id number]) Diagnostician: System Interface Pathologist Electronically Signed 12/18/2019 Copies: ~ PATIENT NAME: GROVER WYNN PATHOLOGY DATE OF : 60 REPORT #: [id number] PHYSICIAN: LIAM MONTES DE OCA PCP: ROXY REESE MD REPORT IS CONFIDENTIAL AND NOT TO BE RELEASED WITHOUT AUTHORIZATION
== END 2019-12-16 16:48 | disposition home or self-care (01) ==
LOC: ED 13:40
DX: G89.18 Other acute postprocedural pain (principal); M25.552 Pain in left hip; J40 Bronchitis, not specified as acute or chronic; R53.1 Weakness; Z20.828 Contact with and (suspected) exposure to other viral communicable diseases; E11.40 Type 2 diabetes mellitus with diabetic neuropathy, unspecified; E03.9 Hypothyroidism, unspecified; K21.9 Gastro-esophageal reflux disease without esophagitis; F31.9 Bipolar disorder, unspecified; Z87.891 Personal history of nicotine dependence; Z88.8 Allergy status to other drugs, medicaments and biological substances; Z88.5 Allergy status to narcotic agent; Z88.1 Allergy status to other antibiotic agents; Z79.899 Other long term (current) 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
CPT/HCPCS: 71045; 80053; 81001; 85025; 85651; 96374; 99285-25; C9803; J2405

== ENCOUNTER 2020-03-15 16:46 | Emergency (ER) | payer MEDICARE, MEDICAID ==
[~2020-03-15] VITALS: Ht 157.5 cm; Wt 81.7 kg
--- OUTSIDE RECORDS SUMMARY | 2020-03-15 16:48 | XMS ---
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 SHE CAN CALL SCALE ASSEMBLY SET UP WORKER FOR HELP OR QUESTIONS. [phone]. Medical/Surgical 12/19/2019 [facility] - PATIENT HAS A FOLLOW UP APT SCHEDULED 12/21/2019 FOR ER FOLLOW UP. - PATIENT HAS AN APT WITH PCP ON 12/30/2019 FOR CLOSE FOLLOW UP. 05/25/2019 [facility] - PATIENT HAS A REFERRAL TO A CLINICAL OPERATIONS CONSULTANT IN [place], [place]- DR BRAYAN BOLANOS- [phone]. 03/16/2019 [facility] Left voicemail to have patient schedule follow up visit with Gonzales Clayton E.D. VISIT COUNT (12 MO.) 5 [facility]. TOTAL 5 NOTE: Visits indicate total known visits. ED/UCC VISIT TRACKING (12 MO.) 03/15/2020 16:47 [facility] [place] TYPE: Emergency COMPLAINT: - CHEST PAIN 12/16/2019 13:40 [facility] [place] TYPE: Emergency COMPLAINT: - POST OP PROBLEM DIAGNOSES: - Allergy status to other antibiotic agents - Other custodial (current) 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 - Personal history of nicotine dependence - Contact with and (suspected) exposure to other viral communicable diseases - Weakness - Bipolar disorder, unspecified - Bronchitis, not specified as acute or chronic - Weakness - Allergy status to other drugs, medicaments and biological substances - Pain in left hip - Type 2 diabetes mellitus with diabetic neuropathy, unspecified - Pain in left hip - Other acute postprocedural pain - Allergy status to other antibiotic agents - Gastro-esophageal reflux disease without esophagitis - Hypothyroidism, unspecified - Allergy status to narcotic agent - Allergy status to narcotic agent - Allergy status to other drugs, medicaments and biological substances 10/30/2019 23:32 [facility] [place] TYPE: Emergency COMPLAINT: - FALL DIAGNOSES: - Pain in right wrist - Strain of muscle, fascia and tendon of left hip, initial encounter - Unspecified sprain of right wrist, initial encounter - Allergy status to other drugs, medicaments and biological substances - Nicotine dependence, unspecified, uncomplicated - Allergy status to analgesic agent - Fall on same level, unspecified, initial encounter - Gastro-esophageal reflux disease without esophagitis - Hypothyroidism, unspecified - Type 2 diabetes mellitus with diabetic polyneuropathy 07/31/2019 15:05 [facility] [place] TYPE: Emergency COMPLAINT: - LOW BLOOD SUGAR DIAGNOSES: - Allergy status to other drugs, medicaments and biological substances - Nicotine dependence, unspecified, uncomplicated - Chest pain, unspecified - Other custodial (current) 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 - Type 2 diabetes mellitus with hypoglycemia without coma - Allergy status to analgesic agent - Hypothyroidism, unspecified - Chronic obstructive pulmonary [...] of ribs, right side, initial encounter for closed fracture - Other community center coordinator (current) 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 - Type 2 diabetes mellitus without complications - Chronic obstructive pulmonary disease, unspecified 03/15/2019 23:52 [facility] [place] TYPE: Emergency COMPLAINT: - STROKE SYMPTOMS DIAGNOSES: - Allergy status to other drugs, medicaments and biological substances - Allergy status to narcotic agent - Nicotine dependence, unspecified, uncomplicated - Hypothyroidism, unspecified - Bipolar disorder, unspecified - Type 2 diabetes mellitus without complications - Gastro-esophageal reflux disease without esophagitis - Headache - Migraine with aura, not intractable, without status migrainosus - Unspecified asthma, uncomplicated - Other custodial (current) 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 INPATIENT VISIT TRACKING (12 MO.) 11/28/2019 05:35 [facility] [place] TYPE: Orthopedic COMPLAINT: - LEFT TOTAL HIP REPLACEMENT (SHERMAN) DIAGNOSES: - Unilateral primary osteoarthritis, left hip [email or web address]
[2020-03-15] MEDS ORDERED: JARDIANCE10 MG PO (17:11)
[2020-03-15] MEDS ORDERED: LANTUS100 UNITS/ SUB-Q (17:11)
[2020-03-15] MEDS ORDERED: HUMALOG100 UNIT/2 SUB-Q (17:12)
[2020-03-15] MEDS ORDERED: OZEMPIC0.25 MG/0. (17:13)
--- NOTE | 2020-03-17 13:34 | EKG ---
[facility] [address] [place], [place] [address] Signed Normal sinus rhythm Normal ECG When compared with ECG of 31-JUL-2019 15:22, No significant change was found Confirmed by JOVANY MAYES MD ([id number]) on 03/17/2020 1:33:59 PM Electronically Signed By: JOVANY MAYES MD 03/17/20 1334 PATIENT NAME: TIANNAGROVER Electrocardiogram DATE OF : 60 PHYSICIAN: JOVANY MAYES MD REPORT #: [id number] REPORT IS CONFIDENTIAL AND NOT TO BE RELEASED WITHOUT AUTHORIZATION
== END 2020-03-15 20:20 | disposition home or self-care (01) ==
LOC: ED 16:46
DX: R07.9 Chest pain, unspecified (principal); E03.9 Hypothyroidism, unspecified; K21.9 Gastro-esophageal reflux disease without esophagitis; J45.909 Unspecified asthma, uncomplicated; I25.10 Atherosclerotic heart disease of native coronary artery without angina pectoris; I25.2 Old myocardial infarction; F17.200 Nicotine dependence, unspecified, uncomplicated; Z20.822 Contact with and (suspected) exposure to COVID-19; Z86.718 Personal history of other venous thrombosis and embolism; Z86.711 Personal history of pulmonary embolism; Z88.8 Allergy status to other drugs, medicaments and biological substances; Z88.5 Allergy status to narcotic agent; Z79.899 Other long term (current) 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; Z79.4 Long term (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 insulin; Z95.5 Presence of coronary angioplasty implant and graft
CPT/HCPCS: 71045; 80053; 82550; 82553; 83874; 83880; 84484; 85025; 85379; 93005; 93010; 99285-25; C9803; U0003

== ENCOUNTER 2020-08-27 19:49 | Emergency (ER) | payer MEDICARE, MEDICAID ==
[~2020-08-27] VITALS: Ht 157.5 cm; Wt 82.5 kg
[~2020-08-27 19:49] MED LIST changes: +CRESTOR40 MG NG; +OZEMPIC0.25 MG/0.
--- OUTSIDE RECORDS SUMMARY | 2020-08-27 19:52 | XMS ---
PreManage Notification: GROVER WYNN Security Adjunct Latin Professor Events No recent Security Events currently on file CRITERIA MET - PDM - [facility] Has [facility] Guidelines - Group Notification CARE PROVIDERS ROXY MAS Internal Medicine Current PHONE: [phone] GONZALES CLAYTON Nurse Practitioner: 09/07/2017-Current PHONE: [phone] ROXY REESE [facility] 05/25/2019-Current PHONE: [phone] Care Guidelines exist for the following facilities: [facility] ( 04/09/2020 ) Care History Social 03/18/2016 [facility] ENCOURAGE PATIENT TO USE PCP OR WALK-IN CLINIC FOR NON-EMERGENT PROBLEMS. SHE CAN CALL CONDUCTOR SYMPHONIC ORCHESTRA FOR HELP OR QUESTIONS. [phone]. Medical/Surgical 12/19/2019 [facility] - PATIENT HAS A FOLLOW UP APT SCHEDULED 12/21/2019 FOR ER FOLLOW UP. - PATIENT HAS AN APT WITH PCP ON 12/30/2019 FOR CLOSE FOLLOW UP. 05/25/2019 [facility] - PATIENT HAS A REFERRAL TO A SISAL OPERATOR IN [place], [place]- DR BRAYAN BOLANOS- [phone]. 03/16/2019 [facility] Left voicemail to have patient schedule follow up visit with Gonzales Clayton E.D. VISIT COUNT (12 MO.) [address] TOTAL 5 NOTE: Visits indicate total known visits. ED/UCC VISIT TRACKING (12 MO.) 08/27/2020 19:50 [facility] [place] TYPE: Emergency COMPLAINT: - DIFFICULY BREATHING, BODY ACHES 06/05/2020 16:27 [facility] [place] TYPE: Emergency DIAGNOSES: - DIABETES - Poisoning by insulin and oral hypoglycemic [antidiabetic] drugs, accidental (unintentional), initial encounter 03/15/2020 16:47 [facility] [place] TYPE: Emergency COMPLAINT: - CHEST PAIN DIAGNOSES: - Presence of coronary angioplasty implant and graft - Other injection moulding machine operator (current) 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 - USP (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 insulin - Personal history of other venous thrombosis and embolism - Gastro-esophageal reflux disease without esophagitis - Chest pain, unspecified - Allergy status to narcotic agent - Allergy status to other drugs, medicaments and biological substances - Nicotine dependence, unspecified, uncomplicated - Personal history of pulmonary embolism - Old myocardial infarction - Atherosclerotic heart disease of [place] coronary artery without angina pectoris - Hypothyroidism, unspecified - Unspecified asthma, uncomplicated 12/16/2019 13:40 [facility] [place] TYPE: Emergency COMPLAINT: - POST OP PROBLEM DIAGNOSES: - Allergy status to other antibiotic agents - Other injection moulding machine operator (current) 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 - Personal history of [...] Type 2 diabetes mellitus with diabetic polyneuropathy INPATIENT VISIT TRACKING (12 MO.) 11/28/2019 05:35 [facility] [place] TYPE: Orthopedic COMPLAINT: - LEFT TOTAL HIP REPLACEMENT (SHERMAN) DIAGNOSES: - Unilateral primary osteoarthritis, left hip [email or web address]
[2020-08-27] MEDS ORDERED: PREDNISONE20 MG PO (22:03)
[2020-08-27] MEDS ORDERED: IPRAT-ALBUT 0.5-3 ML INH (22:03)
[2020-08-27] MEDS ORDERED: CEPHALEXIN500 MG PO (22:03)
== END 2020-08-27 22:15 | disposition home or self-care (01) ==
LOC: ED 19:49
DX: K08.89 Other specified disorders of teeth and supporting structures (principal); J45.901 Unspecified asthma with (acute) exacerbation; M25.552 Pain in left hip; E11.42 Type 2 diabetes mellitus with diabetic polyneuropathy; M19.90 Unspecified osteoarthritis, unspecified site; E03.9 Hypothyroidism, unspecified; K21.9 Gastro-esophageal reflux disease without esophagitis; J45.909 Unspecified asthma, uncomplicated; F17.200 Nicotine dependence, unspecified, uncomplicated; Z88.8 Allergy status to other drugs, medicaments and biological substances; Z88.5 Allergy status to narcotic agent; Z79.899 Other long term (current) 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; Z79.4 Long term (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 insulin
CPT/HCPCS: 99284; J7512

== ENCOUNTER 2020-10-16 19:12 | Emergency (ER) | payer MEDICARE, MEDICAID ==
[~2020-10-16] VITALS: Ht 157.5 cm; Wt 80.3 kg
[~2020-10-16 19:12] MED LIST changes: +CEPHALEXIN500 MG PO
--- OUTSIDE RECORDS SUMMARY | 2020-10-16 19:14 | XMS ---
PreManage Notification: GROVER WYNN Security Origination Specialist Events No recent Security Events currently on file CRITERIA MET - PDMP - Group Notification CARE PROVIDERS ROXY MAS Internal Medicine Current PHONE: [phone] GONZALES CLAYTON Nurse Practitioner: 09/07/2017-Current PHONE: [phone] ROXY REESE [facility] 05/25/2019-Current PHONE: [phone] Care Guidelines exist for the following facilities: [facility] ( 04/09/2020 ) Care History Medical/Surgical 12/19/2019 [facility] - PATIENT HAS A FOLLOW UP APT SCHEDULED 12/21/2019 FOR ER FOLLOW UP. - PATIENT HAS AN APT WITH PCP ON 12/30/2019 FOR CLOSE FOLLOW UP. 05/25/2019 [facility] - PATIENT HAS A REFERRAL TO A STEEL UNLOADER IN [place], [place]- DR SCHMIDT GUERNSEY- [phone]. 03/16/2019 [facility] Left voicemail to have patient schedule follow up visit with Gonzales Triplett 03/18/2016 [facility] ENCOURAGE PATIENT TO USE PCP OR WALK-IN CLINIC FOR NON-EMERGENT PROBLEMS. SHE CAN CALL SOLAR APPLICATIONS DEVELOPMENT ENGINEER FOR HELP OR QUESTIONS. [phone]. E.D. VISIT COUNT (12 MO.) 1 [facility] Judd 5 [facility] H. TOTAL 6 NOTE: Visits indicate total known visits. ED/UCC VISIT TRACKING (12 MO.) 2020 19:13 [facility] [place] TYPE: Emergency COMPLAINT: - FLU SYMPTOMS 08/27/2020 19:50 [facility] [place] TYPE: Emergency COMPLAINT: - DENTAL PN DIAGNOSES: - Pain in left hip - Nicotine dependence, unspecified, uncomplicated - Unspecified osteoarthritis, unspecified site - Hypothyroidism, unspecified - Other nursing home (current) 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 - Unspecified asthma with (acute) exacerbation - Allergy status to narcotic agent - Allergy status to other drugs, medicaments and biological substances - Gastro-esophageal reflux disease without esophagitis - Other specified disorders of teeth and supporting structures - residential (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 insulin - Unspecified asthma, uncomplicated - Type 2 diabetes mellitus with diabetic polyneuropathy 06/05/2020 16:27 [facility] [place] TYPE: Emergency DIAGNOSES: - DIABETES - Poisoning by insulin and oral hypoglycemic [antidiabetic] drugs, accidental (unintentional), initial encounter 03/15/2020 16:47 [facility] [place] TYPE: Emergency COMPLAINT: - CHEST PAIN DIAGNOSES: - Presence of coronary angioplasty implant and graft - Other rodent exterminator (current) 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 - 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 truck 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 (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 insulin - Personal history of other venous thrombosis and embolism - Gastro-esophageal reflux disease without esophagitis - Chest pain, unspecified - Allergy status to narcotic agent - Allergy status to other drugs, medicaments and biological substances - Nicotine dependence, unspecified, uncomplicated - Personal history of pulmonary embolism - Old myocardial infarction - Atherosclerotic heart disease of [place] coronary artery without angina pectoris - Hypothyroidism, unspecified - Unspecified asthma, uncomplicated 12/16/2019 13:40 [facility] [place] TYPE: Emergency COMPLAINT: - POST OP PROBLEM DIAGNOSES: - Allergy status to other antibiotic agents - Other nursing home (current) 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 - Personal history [...] DIAGNOSES: - Unilateral primary osteoarthritis, left hip [email or web address]
[2020-10-16] MEDS ORDERED: VENTOLIN HFA18 GM (19:27)
[2020-10-16] MEDS ORDERED: MOBIC7.5 MG (19:27)
[2020-10-16] MEDS ORDERED: FLUCONAZOLE150 MG (19:27)
[2020-10-16] MEDS ORDERED: METOPROLOL SUCC50 MG (19:27)
[2020-10-16] MEDS ORDERED: DICLOFENAC SOD100 G1 (19:27)
[2020-10-16] MEDS ORDERED: OMEPRAZOLE40 MG PO (19:28)
[2020-10-16] MEDS ORDERED: LEVOTHYROXINE100 MCG (19:28)
[2020-10-16] MEDS ORDERED: TESSALON PERLE100 MG PO (20:58)
--- NOTE | 2020-10-17 22:33 | EKG ---
[facility] [address] [facility] [place], [place] [address] Signed Normal sinus rhythm Normal ECG When compared with ECG of 15-MAR-2020 16:42, No significant change was found Confirmed by PEMA PERAZA DO ([id number]) on 10/17/2020 10:33:15 PM Electronically Signed By: PEMA PERAZA DO 10/17/202232 PATIENT NAME: TIANNAGROVER AMINTA Electrocardiogram DATE OF : 60 PHYSICIAN: PEMA PERAZA DO REPORT #: [id number] REPORT IS CONFIDENTIAL AND NOT TO BE RELEASED WITHOUT AUTHORIZATION
== END 2020-10-16 21:20 | disposition home or self-care (01) ==
LOC: ED 19:12
DX: J44.1 Chronic obstructive pulmonary disease with (acute) exacerbation (principal); Z20.822 Contact with and (suspected) exposure to COVID-19; E11.41 Type 2 diabetes mellitus with diabetic mononeuropathy; M19.90 Unspecified osteoarthritis, unspecified site; E03.9 Hypothyroidism, unspecified; K21.9 Gastro-esophageal reflux disease without esophagitis; F17.200 Nicotine dependence, unspecified, uncomplicated; Z88.8 Allergy status to other drugs, medicaments and biological substances; Z88.5 Allergy status to narcotic agent; Z88.1 Allergy status to other antibiotic agents; Z79.899 Other long term (current) 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; Z79.4 Long term (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 insulin
CPT/HCPCS: 71045; 80053; 85025; 93005; 93010; 94644; 96374; 99285-25; C9803; J2930; U0003

== ENCOUNTER 2020-11-17 22:45 | Emergency (ER) | payer MEDICARE, MEDICAID ==
[~2020-11-17] VITALS: Ht 157.5 cm; Wt 88.1 kg
[~2020-11-17 22:45] MED LIST changes: +DICLOFENAC SOD100 G1; +FLUCONAZOLE150 MG; +LEVOTHYROXINE100 MCG; +METOPROLOL SUCC50 MG; +MOBIC7.5 MG; +OMEPRAZOLE40 MG PO; +TESSALON PERLE100 MG PO; +VENTOLIN HFA18 GM
--- OUTSIDE RECORDS SUMMARY | 2020-11-17 22:48 | XMS ---
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 SHE CAN CALL MOID [employer] TEACHER FOR HELP OR QUESTIONS. [phone]. Medical/Surgical 12/19/2019 [facility] - PATIENT HAS A FOLLOW UP APT SCHEDULED 12/21/2019 FOR ER FOLLOW UP. - PATIENT HAS AN APT WITH PCP ON 12/30/2019 FOR CLOSE FOLLOW UP. 05/25/2019 [facility] - PATIENT HAS A REFERRAL TO A MANAGER PORTABLE IN [place], [place]- DR BRAYAN BOLANOS- [phone]. 03/16/2019 [facility] Left voicemail to have patient schedule follow up visit with Gonzales Clayton E.D. VISIT COUNT (12 MO.) 1 [facility] [place] 6 [facility]. TOTAL 7 NOTE: Visits indicate total known visits. ED/UCC VISIT TRACKING (12 MO.) 11/17/2020 22:47 [facility] [place] TYPE: Emergency COMPLAINT: - RT SIDED JAW INFECTION 11/16/2020 13:55 [facility] [place] TYPE: Emergency COMPLAINT: - TOOTH/MOUTH PROBLEM 2020 19:13 [facility] [place] TYPE: Emergency COMPLAINT: - FLU SYMPTOMS DIAGNOSES: - Hypothyroidism, unspecified - Allergy status to narcotic agent - [place] [facility] (current) 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 - Gastro-esophageal reflux disease without esophagitis - Shortness of breath - Allergy status to other drugs, medicaments and biological substances - Type 2 diabetes mellitus with diabetic mononeuropathy - Chronic obstructive pulmonary disease with (acute) exacerbation - jail (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 insulin - Nicotine dependence, unspecified, uncomplicated - Allergy status to other antibiotic agents - Unspecified osteoarthritis, unspecified site 08/27/2020 19:50 [facility] [place] TYPE: Emergency COMPLAINT: - DENTAL PN DIAGNOSES: - Pain in left hip - Nicotine dependence, unspecified, uncomplicated - Unspecified osteoarthritis, unspecified site - Hypothyroidism, unspecified - Other terminal gauger (current) 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 - Unspecified asthma with (acute) exacerbation - Allergy status to narcotic agent - Allergy status to other drugs, medicaments and biological substances - Gastro-esophageal reflux disease without esophagitis - Other specified disorders of teeth and supporting structures - jail (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 insulin - Unspecified asthma, uncomplicated - Type 2 diabetes mellitus with diabetic polyneuropathy 06/05/2020 16:27 [facility] [place] TYPE: Emergency DIAGNOSES: - DIABETES - Poisoning by insulin and oral hypoglycemic [antidiabetic] drugs, accidental (unintentional), initial encounter 03/15/2020 16:47 [facility] [place] TYPE: Emergency COMPLAINT: - CHEST PAIN DIAGNOSES: - Presence of coronary angioplasty implant and graft - Other [place] [facility] (current) 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 - roasterman (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 insulin - Personal history of other venous thrombosis and embolism - Gastro-esophageal reflux disease without esophagitis - Chest pain, unspecified - Allergy status to narcotic agent - Allergy status to other drugs, medicaments and biological substances - Nicotine dependence, unspecified, uncomplicated - Personal history of pulmonary embolism - Old myocardial infarction - 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
[2020-11-18] MEDS ORDERED: AUGMENTIN 500-1 EACH PO (00:20)
[2020-11-18] MEDS ORDERED: PERCOCET 5-3251 EACH PO (03:01)
[2020-11-18] MEDS ORDERED: ZOFRAN4 MG PO (03:01)
== END 2020-11-18 03:54 | disposition home or self-care (01) ==
LOC: ED 22:45
DX: K04.7 Periapical abscess without sinus (principal); D72.829 Elevated white blood cell count, unspecified; M19.90 Unspecified osteoarthritis, unspecified site; E03.9 Hypothyroidism, unspecified; K21.9 Gastro-esophageal reflux disease without esophagitis; J45.909 Unspecified asthma, uncomplicated; E11.42 Type 2 diabetes mellitus with diabetic polyneuropathy; F17.200 Nicotine dependence, unspecified, uncomplicated; Z88.1 Allergy status to other antibiotic agents; Z88.5 Allergy status to narcotic agent; Z88.6 Allergy status to analgesic agent; Z88.8 Allergy status to other drugs, medicaments and biological substances; Z79.4 Long term (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 insulin; Z79.899 Other long term (current) 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
CPT/HCPCS: 80053; 81001; 85025; 96374; 96375; 99283-25; J0696; J1170; J2405; J7030

== ENCOUNTER 2021-03-17 23:48 | Emergency (ER) | payer MEDICARE, MEDICAID ==
[~2021-03-17] VITALS: Ht 157.5 cm; Wt 89.6 kg
[~2021-03-17 23:48] MED LIST changes: +AUGMENTIN 500-1 EACH PO; +PERCOCET 5-3251 EACH PO
--- OUTSIDE RECORDS SUMMARY | 2021-03-17 23:52 | XMS ---
PreManage Notification: GROVER WYNN Security Business Continuity Planner Events 1 event(s) in the past 18 months Most recent security events: Elopement at [facility] 11/16/2020 13:55 - Other Details: PATIENT LWBS CRITERIA MET - Group Notification - PDMP CARE PROVIDERS ROXY MAS Internal Medicine Current PHONE: [phone] GONZALES CLAYTON Nurse Practitioner: 09/07/2017-Current PHONE: Unknown ROXY REESE [facility] 05/25/2019-Current PHONE: [phone] Mariposa Madsen Community Health Worker 01/25/2021-Current PHONE: [phone] Care Guidelines exist for the following facilities: [facility] ( 04/09/2020 ) Care History Medical/Surgical 12/19/2019 [facility] - PATIENT HAS A FOLLOW UP APT SCHEDULED 12/21/2019 FOR ER FOLLOW UP. - PATIENT HAS AN APT WITH PCP ON 12/30/2019 FOR CLOSE FOLLOW UP. 05/25/2019 [facility] - PATIENT HAS A REFERRAL TO A FABRICATION MANAGER IN [place], [place]- DR SCHMIDT LOUIN- [phone]. 03/16/2019 [facility] Left voicemail to have patient schedule follow up visit with Gonzales Triplett 03/18/2016 [facility] ENCOURAGE PATIENT TO USE PCP OR WALK-IN CLINIC FOR NON-EMERGENT PROBLEMS. SHE CAN CALL CLERK RATING FOR HELP OR QUESTIONS. [phone]. E.D. VISIT COUNT (12 MO.) 1 [facility] [address] TOTAL 7 NOTE: Visits indicate total known visits. ED/UCC VISIT TRACKING (12 MO.) 03/17/2021 23:50 [facility] [place] TYPE: Emergency COMPLAINT: - LT SIDED NUMBNESS,HEADACHE 01/20/2021 17:12 [facility] [place] TYPE: Emergency DIAGNOSES: - Other specified disorders of teeth and supporting structures - Cellulitis of unspecified finger - infection 11/17/2020 22:47 [facility] [place] TYPE: Emergency COMPLAINT: - RT SIDED JAW INFECTION DIAGNOSES: - Gastro-esophageal reflux disease without esophagitis - Allergy status to other antibiotic agents - Infection following a procedure, other surgical site, initial encounter - Allergy status to other drugs, medicaments and biological substances - Elevated white blood cell count, unspecified - Allergy status to narcotic agent - Localized swelling, mass and lump, head - Type 2 diabetes mellitus with diabetic polyneuropathy - Hypothyroidism, unspecified - Nicotine dependence, unspecified, uncomplicated - Unspecified asthma, uncomplicated - Periapical abscess without sinus - Allergy status to analgesic agent - intermediate (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 insulin - Other retirement (current) 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 - Unspecified osteoarthritis, unspecified site 11/16/2020 13:55 [facility] [place] TYPE: Emergency COMPLAINT: - TOOTH/MOUTH PROBLEM 2020 19:13 [facility] [place] TYPE: Emergency COMPLAINT: - FLU SYMPTOMS DIAGNOSES: - Hypothyroidism, unspecified - Allergy status to narcotic agent - 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 - Gastro-esophageal reflux disease without esophagitis - Shortness of breath - Allergy status to other drugs, medicaments and biological substances - Type 2 diabetes mellitus with diabetic mononeuropathy - Chronic obstructive pulmonary disease with (acute) exacerbation - intermediate (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 insulin - Nicotine dependence, unspecified, uncomplicated - Allergy status to other antibiotic agents - Unspecified osteoarthritis, unspecified site 08/27/2020 19:50 [facility] [place] TYPE: Emergency COMPLAINT: - DENTAL PN DIAGNOSES: - Pain in left hip - Nicotine dependence, unspecified, uncomplicated - Unspecified osteoarthritis, unspecified site - Hypothyroidism, unspecified - 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 - Unspecified asthma with (acute) exacerbation - Allergy status to narcotic agent - Allergy status to other drugs, medicaments and biological substances - Gastro-esophageal reflux disease without esophagitis - Other specified disorders of teeth and supporting structures - 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
--- NOTE | 2021-03-18 18:35 | EKG ---
[facility] [address] [facility] [place], [place] [address] Signed Normal sinus rhythm Normal ECG No previous ECGs available Confirmed by PEMA PERAZA DO ([id number]) on 03/18/2021 6:35:46 PM Electronically Signed By: PEMA PERAZA DO 03/18/21 1835 PATIENT NAME: GROVER WYNN Electrocardiogram DATE OF : 60 PHYSICIAN: PEMA PERAZA DO REPORT #: [id number] REPORT IS CONFIDENTIAL AND NOT TO BE RELEASED WITHOUT AUTHORIZATION
== END 2021-03-18 01:15 | disposition home or self-care (01) ==
LOC: ED 23:48
DX: G43.109 Migraine with aura, not intractable, without status migrainosus (principal); R00.2 Palpitations; E03.9 Hypothyroidism, unspecified; K21.9 Gastro-esophageal reflux disease without esophagitis; J45.909 Unspecified asthma, uncomplicated; E11.42 Type 2 diabetes mellitus with diabetic polyneuropathy; F17.200 Nicotine dependence, unspecified, uncomplicated; Z88.8 Allergy status to other drugs, medicaments and biological substances; Z88.5 Allergy status to narcotic agent; Z79.899 Other long term (current) 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; Z79.4 Long term (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 insulin
CPT/HCPCS: 70450; 71045; 80053; 83735; 84484; 85025; 85610; 85730; 93005; 93010; 96374; 96375; 99285-25; J1200; J2765; J7030

== ENCOUNTER 2023-04-13 15:58 | Emergency (ER) | payer MEDICARE, OTHER ==
[~2023-04-13] VITALS: Ht 157.5 cm; Wt 85.6 kg
[~2023-04-13 15:58] MED LIST changes: +ACETAMINOPHEN500 MG PO; +ALBUTEROL2.5 MG/0.5 INH; +ANORO ELLIPTA1 EACH INH; +AZELASTINE137 MCG/0. NAS; +DICLOFENAC POTA25 MG PO; +FLUOXETINE HCL60 MG PO; +GABAPENTIN300 MG PO; +HYDROXYZINE HCL25 MG PO; +ROSUVASTATIN CA40 MG PO
[2023-04-13 16:30] LABS: HEMATOCRIT 46.4 % (35.0-50.0); HEMOGLOBIN 15.3 g/dL (12.0-18.0); MCH 30.9 (27-36); MCHC 33.1 g/dl (30-36); MCV 93.5 fl (81-99); PLATELET COUNT 396 K/uL (140-440); RBC 4.96 M/ul (4.3-5.7); RDW 13.4 (10.5-15.0)
[2023-04-13 16:40] LABS: ALBUMIN 3.7 g/dL (3.4-5.0); ALBUMIN/GLOBULIN RATIO 1.06 (1.1-2.4); ANION GAP 14.6 (7-21); BILIRUBIN, TOTAL 0.3 ng/dL (0.2-1.0); BUN/CREATININE RATIO 12.16 (6.0-28.6); CALCIUM 9.5 mg/dL (8.5-10.1); CREATININE, SERUM 0.74 mg/dL (0.55-1.02); POTASSIUM 3.6 mmol/L (3.5-5.1); PROTEIN, TOTAL 7.2 g/dL (6.4-8.2)
[2023-04-13 16:43] LABS: EOSINOPHILS, MANUAL DIFF 1; LYMPHOCYTES, MANUAL DIFF 47; MONOCYTES, MANUAL DIFF 7; NEUTROPHILS, MANUAL DIFF 45
[2023-04-13 18:22] LABS: INFLUENZA B NAA NEGATIVE (NEGATIVE); RESPIRATORY SYNCYTIAL VIR NAA NEGATIVE (NEGATIVE)
[2023-04-13] MEDS ORDERED: ASPIRIN 81 MG CHEW PO ONE (19:00)
[2023-04-13] MEDS ORDERED: ACETAMINOPHEN 500 MG TAB PO ONE (19:00)
[2023-04-13 19:16] VITALS: BP 115/63
--- NOTE | 2023-04-14 11:18 | EKG ---
[facility] [address] [facility] [place], [place] [address] Signed Normal sinus rhythm Normal ECG When compared with ECG of 16-DEC-2022 14:09, No significant change was found Confirmed by SOLA AMIN MD ([id number]) on 04/14/2023 11:18:23 AM Electronically Signed By: SOLA AMIN 04/14/23 1118 PATIENT NAME: GROVER WYNN Electrocardiogram DATE OF : 60 PHYSICIAN: SOLA AMIN REPORT #: [id number] REPORT IS CONFIDENTIAL AND NOT TO BE RELEASED WITHOUT AUTHORIZATION
== END 2023-04-13 19:17 | disposition home or self-care (01) ==
LOC: ED 15:58
PROVIDERS: Emergency Medicine
DX: B34.9 Viral infection, unspecified (principal); R20.2 Paresthesia of skin; R51.9 Headache, unspecified; F98.5 Adult onset fluency disorder; R55 Syncope and collapse; M19.90 Unspecified osteoarthritis, unspecified site; E03.9 Hypothyroidism, unspecified; K58.9 Irritable bowel syndrome, unspecified; K21.9 Gastro-esophageal reflux disease without esophagitis; K44.9 Diaphragmatic hernia without obstruction or gangrene; E11.42 Type 2 diabetes mellitus with diabetic polyneuropathy; F31.9 Bipolar disorder, unspecified; F17.200 Nicotine dependence, unspecified, uncomplicated; Z86.14 Personal history of Methicillin resistant Staphylococcus aureus infection; Z88.8 Allergy status to other drugs, medicaments and biological substances; Z88.5 Allergy status to narcotic agent; Z88.6 Allergy status to analgesic agent; Z79.899 Other long term (current) 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; Z79.4 Long term (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 insulin; Z79.84 Long term (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 oral hypoglycemic drugs; Z79.890 Hormone replacement therapy; Z79.85 Long-term (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 injectable non-insulin antidiabetic drugs
CPT/HCPCS: 36415; 70450; 80053; 83735; 84484; 85025; 87502; 99284-25; A9270; U0002

== ENCOUNTER 2023-07-31 16:20 | Emergency (ER) | payer MEDICARE, OTHER ==
[~2023-07-31] VITALS: Ht 157.5 cm; Wt 79.8 kg
[2023-07-31 17:29] LABS: BILIRUBIN, URINE NEGATIVE (negative); BLOOD/HGB, URINE NEGATIVE (Negative); KETONE, URINE NEGATIVE (Negative); LEUK ESTERASE, URINE NEGATIVE (negative); NITRITE, URINE NEGATIVE (negative); PH, URINE 6.5 (5-7)
[2023-07-31 18:30] LABS: ALBUMIN 3.7 g/dL (3.4-5.0); ALBUMIN/GLOBULIN RATIO 1.37 (1.1-2.4); BILIRUBIN, TOTAL 0.2 ng/dL (0.2-1.0); BUN/CREATININE RATIO 9.58 (6.0-28.6); CALCIUM 8.8 mg/dL (8.5-10.1); CREATININE, SERUM 0.73 mg/dL (0.55-1.02); PROTEIN, TOTAL 6.4 g/dL (6.4-8.2)
[2023-07-31 18:47] LABS: BASOPHILS 1.2 % (0-2); EOSINOPHILS 3.2 % (0-6); HEMATOCRIT 42.5 % (35.0-50.0); HEMOGLOBIN 14.3 g/dL (12.0-18.0); LYMPHOCYTES 39.8 % (24-44); MCH 31.5 (27-36); MCHC 33.7 g/dl (30-36); MCV 93.6 fl (81-99); MONOCYTES 6.5 % (0-12); NEUTROPHILS 49.3 % (39-80); PLATELET COUNT 334 K/uL (140-440); RBC 4.54 M/ul (4.3-5.7); RDW 14.6 (10.5-15.0)
[2023-07-31 19:00] VITALS: BP 141/99
== END 2023-07-31 19:01 | disposition home or self-care (01) ==
LOC: ED 16:20
PROVIDERS: Emergency Medicine
DX: N93.9 Abnormal uterine and vaginal bleeding, unspecified (principal); R10.2 Pelvic and perineal pain; E11.42 Type 2 diabetes mellitus with diabetic polyneuropathy; J45.909 Unspecified asthma, uncomplicated; E03.9 Hypothyroidism, unspecified; K21.9 Gastro-esophageal reflux disease without esophagitis; F31.9 Bipolar disorder, unspecified; F17.200 Nicotine dependence, unspecified, uncomplicated; Z95.5 Presence of coronary angioplasty implant and graft; Z88.8 Allergy status to other drugs, medicaments and biological substances; Z79.4 Long term (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 insulin; Z79.899 Other long term (current) 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; Z79.890 Hormone replacement therapy
CPT/HCPCS: 36415; 74176; 80053; 81003; 83690; 85025; 99284-25

== ENCOUNTER 2023-10-26 04:24 | Emergency (ER) | payer MEDICARE, OTHER ==
[~2023-10-26] VITALS: Ht 157.5 cm; Wt 79.0 kg
[2023-10-26] MEDS ORDERED: NITROGLYCERIN PACKET TOP ONE (04:45)
[2023-10-26] MEDS ORDERED: METOPROLOL TARTRATE 5 MG/5 ML VIAL IV ONE ×2 (04:45→06:00)
[2023-10-26] MEDS ORDERED: MORPHINE SULFATE 4 MG/ML VIAL IV ONE (04:45)
[2023-10-26] MEDS ORDERED: dilTIAZem HCL 25 MG/5 ML VIAL IV ONE (05:15)
[2023-10-26 05:22] LABS: BASOPHILS 0.5 % (0-2); EOSINOPHILS 2.2 % (0-6); HEMOGLOBIN 13.3 g/dL (12.0-18.0); LYMPHOCYTES 39.8 % (24-44); MCH 31.7 (27-36); MCHC 33.2 g/dl (30-36); MCV 95.5 fl (81-99); MONOCYTES 7.1 % (0-12); NEUTROPHILS 50.4 % (39-80); PLATELET COUNT 316 K/uL (140-440); RBC 4.18 M/ul (4.3-5.7); RDW 13.7 (10.5-15.0)
[2023-10-26 05:34] LABS: INR 0.95 (0.80-1.30); PROTIME 12.3 Sec (11.2-14.2)
[2023-10-26 05:36] LABS: PARTIAL THROMBOPLASTIN TIME 24.5 Sec (22.9-41.3)
[2023-10-26 05:46] LABS: ALBUMIN 3.7 g/dL (3.4-5.0); ALBUMIN/GLOBULIN RATIO 1.32 (1.1-2.4); ANION GAP 12.9 (7-21); BILIRUBIN, TOTAL 0.3 ng/dL (0.2-1.0); BUN/CREATININE RATIO 10.1 (6.0-28.6); CREATININE, SERUM 0.99 mg/dL (0.55-1.02); MAGNESIUM 1.6 mg/dL (1.8-2.4); POTASSIUM 3.9 mmol/L (3.5-5.1); PROTEIN, TOTAL 6.5 g/dL (6.4-8.2)
[2023-10-26] MEDS ORDERED: AZITHROMYCIN/DEXTROSE 500 MG/250 ML BAG IV ONE (06:00)
[2023-10-26] MEDS ORDERED: MAGNESIUM SULFATE 2 GM/50 ML BAG IV ONE (06:00)
[2023-10-26] MEDS ORDERED: METOPROLOL SUCC50 MG PO (08:00)
[2023-10-26] MEDS ORDERED: AZITHROMYCIN500 MG PO (08:03)
[2023-10-26] MEDS ORDERED: CEFDINIR300 MG PO (08:03)
[2023-10-26] MEDS ORDERED: CEFTRIAXONE/SODIUM CHLORIDE 2 GM/100 ML PIGGYBACK IV SCH (09:00)
[2023-10-26 09:34] VITALS: BP 95/30
--- NOTE | 2023-10-27 13:16 | EKG ---
[facility] [address] [facility] [place], [place] [address] Signed Sinus tachycardia with occasional premature ventricular complexes Otherwise normal ECG No previous ECGs available Confirmed by Deandra Avalos MD ([id number]) on 10/27/2023 1:16:14 PM Electronically Signed By: DEANDRA AVALOS 10/27/23 1316 PATIENT NAME: TIANNAGROVERE Electrocardiogram DATE OF : 60 PHYSICIAN: DEANDRA AVALOS REPORT #: [id number] REPORT IS CONFIDENTIAL AND NOT TO BE RELEASED WITHOUT AUTHORIZATION
== END 2023-10-26 09:35 | disposition home or self-care (01) ==
LOC: ED 04:24
PROVIDERS: Family Medicine
DX: J18.9 Pneumonia, unspecified organism (principal); R00.0 Tachycardia, unspecified; R07.89 Other chest pain; J45.909 Unspecified asthma, uncomplicated; E11.42 Type 2 diabetes mellitus with diabetic polyneuropathy; F31.9 Bipolar disorder, unspecified; F17.200 Nicotine dependence, unspecified, uncomplicated; Z88.8 Allergy status to other drugs, medicaments and biological substances; Z88.5 Allergy status to narcotic agent; Z79.4 Long term (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 insulin; Z79.890 Hormone replacement therapy; Z79.899 Other long term (current) 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
CPT/HCPCS: 36415; 71045; 80053; 83735; 83880; 84484; 85025; 85379; 85610; 85730; 93005; 93010; 96365; 96367; 96375; 99285-25; J0456; J0696; J2270; J3475

== ENCOUNTER 2024-11-02 22:46 | Emergency (ER) | payer MEDICARE ==
[~2024-11-02] VITALS: Ht 157.5 cm; Wt 97.3 kg
[~2024-11-02 22:46] MED LIST changes: +AZITHROMYCIN500 MG PO; +CEFDINIR300 MG PO; +METOPROLOL SUCC50 MG PO
[2024-11-02] MEDS ORDERED: ALBUTEROL SULFATE 0.042% 1.25 MG/3 ML VIAL INH ONE (23:15)
[2024-11-02] MEDS ORDERED: ALBUTEROL SULFATE 0.5% 2.5 MG/0.5 ML VIAL INH ONE (23:15)
[2024-11-02 23:31] LABS: BASOPHILS 0.5 % (0.1-1.2); EOSINOPHILS 3.6 % (0.7-5.8); LYMPHOCYTES 40.7 % (19.3-51.7); MCH 32.1 PG (25.6-32.2); MCHC 33.8 g/dL (32.2-35.5); MCV 95.1 fL (79.4-94.8); MONOCYTES 6.4 % (4.7-12.5); NEUTROPHILS 48.5 % (34.0-71.1); RBC 4.11 M/uL (3.93-5.22)
[2024-11-02 23:54] LABS: ALT (SGPT) 17.0 U/L (14-59); AST (SGOT) 14.0 U/L (15-37); GLOMERULAR FILTRATION RATE,EST 81.0 mL/min (>60); PROTEIN, TOTAL 6.3 g/dL (6.4-8.2); UREA NITROGEN 9.0 mg/dL (7-18)
[2024-11-03] MEDS ORDERED: LEVOTHYROXINE SODIUM 100 MCG TAB PO ONE (00:30)
[2024-11-03] MEDS ORDERED: ALBUTEROL/IPRATROPIUM 3 ML NEB INH ONE (00:30)
[2024-11-03 02:38] LABS: CORONAVIRUS COVID-19 AG NEGATIVE (NEGATIVE)
[2024-11-03] MEDS ORDERED: FAMOTIDINE 20 MG/ 2 ML VIAL IV ONE (02:45)
[2024-11-03] MEDS ORDERED: LIDOCAINE & ANTACID 35 ML BTL PO ONE (02:45)
[2024-11-03] MEDS ORDERED: GUAIFENESIN/CODEINE 60 ML HOME.PACK PO ONE (02:45)
[2024-11-03] MEDS ORDERED: LIDOCAINE HCL100 ML PO (04:13)
[2024-11-03] MEDS ORDERED: SYNTHROID100 MCG PO (04:13)
[2024-11-03 04:49] VITALS: BP 116/71
--- NOTE | 2024-11-04 19:48 | EKG ---
[facility] [address] [facility] [place] [address] Signed Normal sinus rhythm Normal ECG When compared with ECG of 26-OCT-2023 04:32, premature ventricular complexes are no longer present Vent. rate has decreased BY 43 BPM Confirmed by Anoop Damian DO ([id number]) on 11/04/2024 7:48:39 PM Electronically Signed By: ANOOP DAMIAN DO 11/04/24 1948 PATIENT NAME: TIANNAGROVER Electrocardiogram DATE OF : 60 PHYSICIAN: ANOOP DAMIAN DO REPORT #: [id number] REPORT IS CONFIDENTIAL AND NOT TO BE RELEASED WITHOUT AUTHORIZATION
== END 2024-11-03 04:49 | disposition home or self-care (01) ==
LOC: ED 22:46
PROVIDERS: Internal Medicine
DX: J44.1 Chronic obstructive pulmonary disease with (acute) exacerbation (principal); J02.9 Acute pharyngitis, unspecified; E03.9 Hypothyroidism, unspecified; J45.909 Unspecified asthma, uncomplicated; K21.9 Gastro-esophageal reflux disease without esophagitis; E11.42 Type 2 diabetes mellitus with diabetic polyneuropathy; F17.200 Nicotine dependence, unspecified, uncomplicated; Z95.5 Presence of coronary angioplasty implant and graft; Z88.5 Allergy status to narcotic agent; Z88.6 Allergy status to analgesic agent; Z88.8 Allergy status to other drugs, medicaments and biological substances; Z79.4 Long term (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 insulin; Z79.890 Hormone replacement therapy; Z79.85 Long-term (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 injectable non-insulin antidiabetic drugs; Z79.899 Other long term (current) 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
CPT/HCPCS: 36415; 70360; 71045; 80053; 83735; 83880; 84443; 84484; 85025; 93005; 93010; 94640; 96374; 96375; 99285-25; J2919

== ENCOUNTER 2024-12-11 18:21 | Emergency (ER) | payer MEDICARE ==
[~2024-12-11] VITALS: Ht 157.5 cm; Wt 97.0 kg
[~2024-12-11 18:21] MED LIST changes: +LIDOCAINE HCL100 ML PO
[2024-12-11] MEDS ORDERED: TRELEGY ELLIPT1 EACH IH (18:43)
[2024-12-11] MEDS ORDERED: PROPRANOLOL HCL20 MG PO (18:44)
[2024-12-11 19:13] LABS: BASOPHILS 0.6 % (0.1-1.2); EOSINOPHILS 4.7 % (0.7-5.8); LYMPHOCYTES 38.8 % (19.3-51.7); MCH 32.1 PG (25.6-32.2); MCHC 34.0 g/dL (32.2-35.5); MCV 94.4 fL (79.4-94.8); MONOCYTES 9.1 % (4.7-12.5); NEUTROPHILS 46.4 % (34.0-71.1); RBC 4.08 M/uL (3.93-5.22)
[2024-12-11 19:18] LABS: ALT (SGPT) 19.0 U/L (14-59); AST (SGOT) 19.0 U/L (15-37); GLOMERULAR FILTRATION RATE,EST 74.0 mL/min (>60); PROTEIN, TOTAL 6.5 g/dL (6.4-8.2); TSH, 3RD GENERATION 0.353 uIU/mL (0.358-3.740)
[2024-12-11 19:31] LABS: UREA NITROGEN 9.0 mg/dL (7-18)
[2024-12-11] MEDS ORDERED: POTASSIUM CHLO20 ME2 PO (19:42)
[2024-12-11] MEDS ORDERED: LASIX20 MG PO (19:42)
[2024-12-11] MEDS ORDERED: FUROSEMIDE 40 MG TAB PO ONE (19:45)
[2024-12-11 20:05] VITALS: BP 136/77
--- NOTE | 2024-12-11 20:37 | EKG ---
[facility] [address] [place] [address] Signed Normal sinus rhythm Normal ECG When compared with ECG of 02-NOV-2024 23:02, No significant change was found Confirmed by Brisa Giraldo MD () on 12/11/2024 8:37:41 PM Electronically Signed By: BRISA GIRALDO MD 12/11/242036 PATIENT NAME: GROVER WYNN Electrocardiogram DATE OF : 60 PHYSICIAN: BRISA GIRALDO MD REPORT #: [id number] REPORT IS CONFIDENTIAL AND NOT TO BE RELEASED WITHOUT AUTHORIZATION
== END 2024-12-11 20:06 | disposition home or self-care (01) ==
LOC: ED 18:21
PROVIDERS: Emergency Medicine
DX: R60.0 Localized edema (principal); M19.90 Unspecified osteoarthritis, unspecified site; E03.9 Hypothyroidism, unspecified; E11.9 Type 2 diabetes mellitus without complications; K21.9 Gastro-esophageal reflux disease without esophagitis; J45.909 Unspecified asthma, uncomplicated; F17.200 Nicotine dependence, unspecified, uncomplicated; Z79.51 Long term (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 inhaled steroids; Z79.899 Other long term (current) 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; Z79.4 Long term (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 insulin; Z88.1 Allergy status to other antibiotic agents; Z88.5 Allergy status to narcotic agent
CPT/HCPCS: 36415; 71045; 80053; 83880; 84443; 84484; 85025; 93005; 93010; 99283-25